=== PATIENT | male | born 1950 | race Caucasian/White ===

== ENCOUNTER 2016-10-04 22:31 | Emergency (ER) | payer MEDICARE, MEDICAID ==
[~2016-10-04] VITALS: Ht 172.7 cm; Wt 80.0 kg
[~2016-10-04 22:31] MED LIST: ATOR1TAB18 PO; COMMODE 3-IN-11 MIS; DIGO0.12 PO; DOCU100T9 PO; FURO20TA PO; ISOS30TA3 PO; LEVEMIR SQ; METO50TA11 PO; MORP15TA73 PO; SODI1TAB PO; SPIR25TA PO; WARF-58 PO; WHEEMIS3; [UNRECOGNIZED DRUG - OTHER] TOP
[2016-10-04 22:34] VITALS: BP 213/95; PULSE 68; RESP 16; TEMP 98.6; O2SAT 99
--- NOTE | 2016-10-04 22:57 | PD ---
Physical Exam Time Seen by Provider: 22:56 Narrative 66 y/o male w/ hx of L BKA presents for wound evaluation. Wound care performed by Dr. Gregorio last week, today he removed the bandage and says that the wound "split open" with increased pain. vss Seen at triage desk. Awaiting bed placement. Data Data Last Documented VS Vital Signs Date Time Temp Pulse Resp B/P Pulse Ox O2 Delivery O2 Flow Rate FiO2 10/04/16 22:34 98.6 68 16 213/95 99 MDM Medical Record Reviewed: Yes Supervised Visit with CLAUDIO: Eric Dowell October 04, 2016 22:57
--- NOTE | 2016-10-05 01:18 | PD ---
HPI . Wound problem Chief Complaint: Wound/Suture/Staple Re-Check Time Seen by Provider: 01:12 Travel History International Travel<30 days: No Contact w/Intl Traveler<30days: No Traveled to known affect area: No History of Present Illness HPI This patient is status post a left BKA. He is now being followed in the wound care clinic for a nonhealing operative wound. He states he changed his dressing tonight and that the wound "split open." Subsequently presented to us for further evaluation. He denies any fever. He does describe increased pain. He states that this pain is 10/10 and that there are no exacerbating or relieving factors. PFSH Past Medical History Hx Anticoagulant Therapy: Yes (WARFARIN) AAA: Yes (REPAIR ) Arthritis: No Asthma: No Atrial Fibrillation: Yes Autoimmune Disease: No Blood Disorders: No Anxiety: No Depression: No Heart Rhythm Problems: Yes (A-FIB, AFLUTTER) Cancer: No Cardiac Catheterization: Yes (x 3) Cardiomyopathy: Yes Cardiovascular Problems: Yes (AFIB, CHF) High Cholesterol: Yes Chemotherapy: No Chest Pain: No Congestive Heart Failure: Yes Cirrhosis: Yes (denies) COPD: No Cerebrovascular Accident: No Coronary Artery Disease: Yes Diabetes: Yes Patient Takes Glucophage: No Diminished Hearing: No Endocrine: Yes Gastrointestinal Disorders: No GERD: No Glaucoma: No Genitourinary: No Headaches: No Hepatitis: Yes (C, Hx of B) Hiatal Hernia: No Hypertension: Yes Immune Disorder: No Implanted Vascular Access Dvce: Yes Kidney Stones: No Musculoskeletal: Yes (neuropathy dm) Neurologic: No Psychiatric: No Reproductive: No Respiratory: No Immunizations Current: Yes Migraines: No Myocardial Infarction: No Radiation Therapy: No Renal Failure: No Seizures: No Sickle Cell Disease: No Sleep Apnea: No Thyroid Disease: No Ulcer: No Tetanus Vaccination: < 5 Years Influenza Vaccination: No PNEUMOCCOCAL Vaccine (Year): 2 Past Surgical History Abdominal Surgery: Yes (AAA REPAIR) AICD: Yes ([employer]) Appendectomy: No Arteriovenous Shunt: No Cardiac Surgery: Yes (CAROTID ENDARTERECTOMY) Cholecystectomy: No Ear Surgery: No Endocrine Surgery: No Eye Surgery: No Genitourinary Surgery: No Gynecologic Surgery: No Insulin Pump: No Joint Replacement: No Oral Surgery: No Pacemaker: Yes Thoracic Surgery: No Tonsillectomy: Yes Other Surgery: Yes (R. TOE AMPUTATION X5, L. 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; (foot) - 06/2009, 10/2013 Reported Meds & Prescriptions Reported Meds & Active Scripts Active Reported Atorvastatin (Atorvastatin Calcium) 80 Mg Tab 80 Mg PO HS Wheelchair (Device) 1 Mis Mis 1 Ea .ROUTE DIRECTED Warfarin 3 Mg Tab 3 Mg PO DAILY Spironolactone 25 Mg Tab 25 Mg PO DAILY Sodium Chloride 1 Gm Tab 1 Gm PO DAILY Morphine Sulfate CR (Morphine Sulfate) 15 Mg Tab 30 Mg PO Q8HR Morphine Sulfate CR (Morphine Sulfate) 15 Mg Tab 15 Mg PO Q4HR Isosorbide Mononitrate ER (Isosorbide Mononitrate) 30 Mg [place] 30 Mg PO DAILY Levemir Inj (Insulin Detemir) 1,000 unit/ 10 ML Vial 30 Units SQ Q12HR Do not mix with any other Insulin. Furosemide 20 Mg Tab 40 Mg PO BID Docusate Sodium 100 Mg Tab 100 Mg PO BID Digoxin 0.125 Mg Tab 0.125 Mg PO DAILY Commode 3-in-1 (Device) 1 Mis Mis 1 Ea .ROUTE DIRECTED Adhesive Paper Tape (Adhesive Tape) 1 Tap Tap Units TOP DIRECTED Metoprolol Succinate ER 24 HR (Metoprolol Succinate) 50 Mg Tab 50 Mg PO DAILY Review of Systems Except as stated in HPI: all other systems reviewed are Neg General / Constitutional: No: Fever, Chills Skin: Positive Lesions Physical Exam Narrative GENERAL: Awake and alert and in no acute distress. SKIN: The skin of his lower extremities is cyanotic. He has weeping from the right lower extremity. He has a left BKA. The wound does not appear infected. There is no redness or warmth. He does have a tiny wound dehiscence. It is draining some serous fluid. HEAD: Atraumatic. Normocephalic. EYES: Pupils equal and round. NECK: Trachea midline. CARDIOVASCULAR: Regular rate and rhythm. RESPIRATORY: No accessory muscle use. MUSCULOSKELETAL: No obvious deformities. No edema. NEUROLOGICAL: Awake and alert. No obvious cranial nerve deficits. Motor grossly within normal limits. Normal speech. PSYCHIATRIC: Appropriate mood and affect; insight and judgment normal. Data Data Last Documented VS Vital Signs Date Time Temp Pulse Resp B/P Pulse Ox O2 Delivery O2 Flow Rate FiO2 10/04/16 22:34 98.6 68 16 213/95 99 MDM Medical Decision Making Medical Screen Exam Complete: Yes Emergency Medical Condition: Yes Differential Diagnosis My differential diagnosis of a wound check includes but is not limited to normal healing, delayed healing, localized wound infection, cellulitis, sepsis Narrative Course This patient presents for evaluation of a surgical wound. He is status post a left BKA. He was concerned about the wound tonight. The wound is not concerning for infection tonight. There is no redness or warmth. There is no purulent drainage. This patient is stable for discharge with continued follow- up with wound care clinic. Diagnosis Primary Impression: Non-healing wound of amputation stump Disposition: DISCHARGE HOME Condition: Stable Sushila Garcia MD October 05, 2016 01:18
[2016-10-05] MEDS: oxyCODONE/ACETAMINOPHEN 5 MG/325 MG TAB PO ONE ×2 (01:30→01:32)
== END 2016-10-05 01:59 | disposition home or self-care (01) ==
LOC: NEPC 22:31
DX: T81.89XA Other complications of procedures, not elsewhere classified, initial encounter (principal); I10 Essential (primary) hypertension; I48.91 Unspecified atrial fibrillation; E11.40 Type 2 diabetes mellitus with diabetic neuropathy, unspecified; E78.00 Pure hypercholesterolemia, unspecified; I50.9 Heart failure, unspecified; I42.9 Cardiomyopathy, unspecified; Z89.512 Acquired absence of left leg below knee; F17.210 Nicotine dependence, cigarettes, uncomplicated; Z95.810 Presence of automatic (implantable) cardiac defibrillator
CPT/HCPCS: 99282

== ENCOUNTER 2017-03-31 21:33 | Observation (INO) | payer MEDICARE, MEDICAID ==
[2017-03-31 21:35] VITALS: BP 135/84; PULSE 81; RESP 16; TEMP 99; O2SAT 95
[2017-03-31] MEDS ORDERED: ASPIRIN 81 MG CHEW TAB PO ONE (22:45)
[2017-03-31] MEDS ORDERED: SODIUM CHLORIDE 0.9% FLUSH 10 ML FLUSH IVF PRN (22:45)
[2017-03-31 22:54] VITALS: BP_SYST 105; BP_SYST 94; BP_DIAS 64; BP_DIAS 67; PULSE 70; RESP 16; O2SAT 100
--- NOTE | 2017-03-31 23:04 | RADRPT ---
EXAM DATE/TIME: 03/31/2017 23:38 [facility] COMPARISON: CHEST SINGLE AP, December 25, 2015, 18:05. INDICATIONS : Chest pain today. MEDICAL HISTORY : Hypertension. Congestive heart failure. Aneurysm, abdominal. Afib. Diabetes. Cirrhosis. Coronary artery disease. Hep B & C. SURGICAL HISTORY : Pacemaker. Abdominal aortic aneurysm repair. Carotoid endarterectomy. Cardiac cath. Defibrilator ENCOUNTER: Initial ACUITY: 1 day PAIN SCORE: 5/10 LOCATION: Bilateral chest FINDINGS: No infiltrate, effusion or pneumothorax. Heart size stable, within normal limits. Cardiac pacer/defibrillator again noted. CONCLUSION: No evidence of acute cardiopulmonary disease. Porfirio Zeng MD on March 31, 2017 at 23:02 Board Certified Radiologist. This report was verified electronically.
[2017-03-31 23:08] LABS: AUTOMATED NEUTROPHIL # 13.8 TH/MM3 (1.8-7.7); BASOPHIL # 0.2 TH/MM3 (0-0.2); BASOPHIL % 1.3 % (0.0-2.0); EOSINOPHIL # 0.1 TH/MM3 (0-0.4); EOSINOPHIL % 0.6 % (0.0-4.0); HEMATOCRIT 56.7 % (39.0-51.0); HEMO FLAGS DIFF FINAL; LYMPH % 9.9 % (9.0-44.0); LYMPHOCYTE # 1.6 TH/MM3 (1.0-4.8); MEAN CELL VOLUME 88.3 FL (80.0-100.0); MEAN CORPUSCULAR HEMOGLOBIN 29.5 PG (27.0-34.0); MEAN CORPUSCULAR HGB CONC 33.4 % (32.0-36.0); MONO % 4.7 % (0.0-8.0); NEUT % 83.5 % (16.0-70.0); PLATELET COUNT 275 TH/MM3 (150-450); RED BLOOD COUNT 6.42 MIL/MM3 (4.50-5.90); RED CELL DISTRIBUTION WIDTH 16.1 % (11.6-17.2); WHITE BLOOD COUNT 16.5 TH/MM3 (4.0-11.0)
[2017-03-31 23:17] LABS: APTT (PATIENT) 40.8 SEC (24.3-30.1); INTERNATIONAL NORMALIZED RATIO 2.2 RATIO
[2017-03-31 23:22] LABS: ALT (GPT) 22 U/L (12-78); ANION GAP 12 MEQ/L (5-15); AST (GOT) 20 U/L (15-37); BICARBONATE 25.2 MEQ/L (21.0-32.0); BLOOD UREA NITROGEN 28 MG/DL (7-18); CHLORIDE 89 MEQ/L (98-107); GLOMERULAR FILTRATION RATE 31 ML/MIN (>89); MAGNESIUM 1.8 MG/DL (1.5-2.5); POTASSIUM 4.6 MEQ/L (3.5-5.1); SODIUM (NA) 126 MEQ/L (136-145)
[2017-03-31 23:26] LABS: ALKALINE PHOSPHATASE 115 U/L (45-117); TOTAL BILIRUBIN ADULT 0.9 MG/DL (0.2-1.0)
[2017-04-01] VITALS (8 sets, daily range): BP systolic 91–148; BP diastolic 61–92; PULSE 68–92; RESP 16–19; TEMP 97.6–98; O2SAT 96–100
[2017-04-01] MEDS ORDERED: SODIUM CHLORID 0.9% 500 ML INJ 500 ML IV ONE
[2017-04-01 01:44] LABS: BACTERIA, URINE RARE /hpf; BLOOD, URINE MOD (NEG); COMMENT (UR) CULT NOT INDICATED; CULTURE IF INDICATED CULT NOT INDICATED; GLUCOSE,URINE 70 mg/dL (NEG); HYALINE CAST, URINE 58 /lpf (RARE); KETONE, URINE NEG (NEG); MUCUS URINE FEW /lpf (OCC); NITRITE,URINE NEG (NEG); SQUAMOUS EPITHELIAL CELL URINE 4 /hpf (0-5); URINE COLOR YELLOW (YELLW/STRAW)
[2017-04-01] MEDS ORDERED: MAGNESIUM HYDROXIDE SUSP 30 ML CUP PO PRN (02:30)
[2017-04-01] MEDS ORDERED: LACTULOSE SYRUP 20 GM/30 ML CUP PO PRN (02:30)
[2017-04-01] MEDS ORDERED: ACETAMINOPHEN/HYDROcodone 325 MG/5 MG TAB PO PRN (02:30)
[2017-04-01] MEDS ORDERED: DEXTROSE 50% IN WATER 50 ML VIAL(D50) IV PUSH PRN (02:30)
[2017-04-01] MEDS ORDERED: BISACODYL 10 MG SUPP RECTAL PRN (02:30)
[2017-04-01] MEDS ORDERED: ONDANSETRON HCL 4 MG/2 ML VIAL IVP PRN (02:30)
[2017-04-01] MEDS ORDERED: SENNOSIDES 8.6 MG TAB PO PRN (02:30)
[2017-04-01] MEDS ORDERED: NITROGLYCERIN 2% OINT 1 GM PACKET TOPICAL PRN (02:30)
[2017-04-01] MEDS ORDERED: SODIUM CHLORIDE 0.9% FLUSH 10 ML FLUSH IV FLUSH PRN (02:30)
[2017-04-01] MEDS ORDERED: GLUCAGON 1 MG/ML VIAL OTHER PRN (02:30)
[2017-04-01] MEDS ORDERED: ACETAMINOPHEN 325 MG TAB PO PRN (02:30)
[2017-04-01] MEDS ORDERED: MORP15IN3 PO (02:46)
[2017-04-01] MEDS: MORPHINE SULFATE 4 MG/ML INJ IV PUSH PRN ×3 (02:50→16:23)
--- NOTE | 2017-04-01 03:20 | HHI.HP ---
[facility] Di Dutton D.O. Admission Diagnosis chest pain, dehydration Diagnoses: (1) Chest pain Diagnosis: Principal (2) CHF (congestive heart failure) Diagnosis: Principal (3) Dehydration Diagnosis: Principal (4) Leukocytosis Diagnosis: Principal (5) A-fib Diagnosis: Principal (6) Chronic pain Diagnosis: Principal (7) DM (diabetes mellitus) Diagnosis: Principal (8) Tobacco abuse Diagnosis: Principal Travel History International Travel<30 Days: No Contact w/Intl Traveler <30 Da: No Traveled to Known Affected Are: No History of Present Illness This is a 66-year-old male with a PMH of HTN, A. fib on Coumadin, CHF (Echo 09/17 w/ EF 30-35%), PVD, h/o Left BKA, AICD, Hepatitis C, Cirrhosis, DM, Chronic Back Pain and Tobacco Abuse who presented to the ER w/ complaints of chest pain starting few hours prior to arrival. States he's had SOB w/ exertion and generalized fatigue for the last 2-3 days. Denies fever, chills, cough or sick contacts. Today states he had acute onset of chest pain which he's never had before. Follows w/ Dr. Del Toro as outpatient, AICD checked approx 4mo ago, last Stress Test approx 2yrs ago reportedly normal, no recent Echo. On arrival, BP 135/84, HR 81, O2 sat 95% on RA, Temp 99.0. WBC 16.5. Hemoglobin 18.9. Creatinine 2.13, previously 1.61 on 01/06/16. Trop negative. EKG w/ no acute ischemia. BNP 191. INR 2.2. U/a negative for UTI. CXR w/ no acute findings. Review of Systems Except as stated in HPI: all other systems reviewed are Neg ROS: 14 point review of systems otherwise negative. Past Family Social History Past Medical History PMH: HTN, A. fib on Coumadin, CHF (Echo 09/17/13 w/ EF 30-35%), PVD, h/o Left BKA, AICD, Hepatitis C, Cirrhosis, DM, Chronic Back Pain and Tobacco Abuse Past Surgical History PAST SURGICAL HISTORY: Tonsillectomy, AAA Repair, CEA, AICD, Liver Biopsy, Left BKA, Right Toe Amputations Allergies: Coded Allergies: Sulfa (Sulfonamide Antibiotics) (Verified Allergy, Severe, Itching, Elevated Blood Pressure, SOB, 03/31/17) sulfamethoxazole (Verified Allergy, Severe, Elevated blood pressure, Generalized itching, 03/31/17) trimethoprim (Verified Allergy, Severe, Elevated blood pressure, Generalized itching, 03/31/17) MRI PRECAUTION (Verified Adverse Reaction, Severe, PACEMAKER KD NOT REVO, 03/31/17) *MDRO Multi-Drug Resistant Organism (Verified Adverse Reaction, Unknown, 03/31/17) 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 Physical Exam Vital Signs Vital Signs Date Time Temp Pulse Resp B/P (MAP) Pulse Ox O2 Delivery O2 Flow Rate FiO2 04/01/17 02:53 72 16 122/73 (89) 98 Room Air 04/01/17 00:58 75 16 114/73 (87) 98 Room Air 03/31/17 22:54 105/67 (80) 94/64 (74) 03/31/17 22:54 70 16 105/67 (80) 100 Room Air 03/31/17 22:54 100 Room Air 03/31/17 21:35 99.0 81 16 135/84 (101) 95 Room Air Physical Exam PE: GENERAL: Pleasant middle-aged white male in no acute distress. HEENT: PERRLA, EOMI. No scleral icterus or conjunctival pallor. No lid lag or facial droop. CARDIOVASCULAR: Regular rate and rhythm. No obvious murmurs to auscultation. No chest tenderness to palpation. RESPIRATORY: No obvious rhonchi or wheezing. Clear to auscultation. Breath sounds equal bilaterally. GASTROINTESTINAL: Abdomen soft, non-tender, nondistended. BS normal. MUSCULOSKELETAL: Extremities without clubbing, cyanosis, or edema. No obvious deformities. Left BKA, Right toe amputations. NEUROLOGICAL: Awake, alert and oriented x4. No focal neurologic deficits. Moving both upper and lower extremities spontaneously. Laboratory Laboratory Tests Test 03/31/17 22:52 04/01/17 01:20 White Blood Count 16.5 Red Blood Count 6.42 Hemoglobin 18.9 Hematocrit 56.7 Mean Corpuscular Volume 88.3 Mean Corpuscular Hemoglobin 29.5 Mean Corpuscular Hemoglobin Concent 33.4 Red Cell Distribution Width 16.1 Platelet Count 275 Mean Platelet Volume 8.3 Neutrophils (%) (Auto) 83.5 Lymphocytes (%) (Auto) 9.9 Monocytes (%) (Auto) 4.7 Eosinophils (%) (Auto) 0.6 Basophils (%) (Auto) 1.3 Neutrophils # (Auto) 13.8 Lymphocytes # (Auto) 1.6 Monocytes # (Auto) 0.8 Eosinophils # (Auto) 0.1 Basophils # (Auto) 0.2 CBC Comment DIFF FINAL Differential Comment Prothrombin Time 25.0 Prothromb Time International Ratio 2.2 Activated Partial Thromboplast Time 40.8 Blood Urea Nitrogen 28 Creatinine 2.13 Random Glucose 272 Total Protein 8.7 Albumin 3.0 Calcium Level 10.5 Magnesium Level 1.8 Alkaline Phosphatase 115 Aspartate Amino Transf (AST/SGOT) 20 Alanine Aminotransferase (ALT/SGPT) 22 Total Bilirubin 0.9 Sodium Level 126 Potassium Level 4.6 Chloride Level 89 Carbon Dioxide Level 25.2 Anion Gap 12 Estimat Glomerular Filtration Rate 31 Troponin I 0.02 B-Type Natriuretic Peptide 191 Urine Color YELLOW Urine Turbidity HAZY Urine pH 6.0 Urine Specific [place] 1.021 Urine Protein GREATER THAN 600 Urine Glucose (UA) 70 Urine Ketones NEG Urine Occult Blood MOD Urine Nitrite NEG Urine Bilirubin NEG Urine Urobilinogen LESS THAN 2.0 Urine Leukocyte Esterase NEG Urine RBC 8 Urine WBC 4 Urine Squamous Epithelial Cells 4 Urine Amorphous Sediment RARE Urine Bacteria RARE Urine Hyaline Casts 58 Urine Mucus FEW Microscopic Urinalysis Comment CULT NOT INDICATED Result Diagram: 03/31/17225103/31/172251 Caprini VTE Risk Assessment Caprini VTE Risk Assessment: Mod/High Risk (score >= 2) Caprini Risk Assessment Model Point Value = 1 Point Value = 2 Point Value = 3 Point Value = 5 Age 41-60 Minor surgery BMI > 25 kg/m2 Swollen legs Varicose veins or History of unexplained or recurrent spontaneous Oral contraceptives or hormone replacement Sepsis (< 1 month) Serious lung disease, including pneumonia (< 1 month) Abnormal pulmonary function Acute myocardial infarction Congestive heart failure (< 1 month) History of inflammatory bowel disease Medical patient at bed rest Age 61-74 Arthroscopic surgery Major open surgery (> 45 min) Laparoscopic surgery (> 45 min) Malignancy Confined to bed (> 72 hours) Immobilizing plaster cast Central venous access Age >= 75 History of VTE Family history of VTE Factor V Leiden Prothrombin [id number] Lupus anticoagulant Anticardiolipin antibodies Elevated serum homocysteine Heparin-induced thrombocytopenia Other congenital or acquired thrombophilia Stroke (< 1 month) Elective arthroplasty Hip, pelvis, or leg fracture Acute spinal cord injury (< 1 month) Prophylaxis Regimen Total Risk Factor Score Risk Level Prophylaxis Regimen 0-1 Low Early ambulation 2 Moderate Order ONE of the following: *Sequential Compression Device (SCD) *Heparin 5000 units SQ BID 3-4 Higher Order ONE of the following medications: *Heparin 5000 units SQ TID *Enoxaparin/Lovenox 40 mg SQ daily (WT < 150 kg, CrCl > 30 mL/min) *Enoxaparin/Lovenox 30 mg SQ daily (WT < 150 kg, CrCl > 10-29 mL/min) *Enoxaparin/Lovenox 30 mg SQ BID (WT < 150 kg, CrCl > 30 mL/min) AND/OR *Sequential Compression Device (SCD) 5 or more Highest Order ONE of the following medications: *Heparin 5000 units SQ TID (Preferred with Epidurals) *Enoxaparin/Lovenox 40 mg SQ daily (WT < 150 kg, CrCl > 30 mL/min) *Enoxaparin/Lovenox 30 mg SQ daily (WT < 150 kg, CrCl > 10-29 mL/min) *Enoxaparin/Lovenox 30 mg SQ BID (WT < 150 kg, CrCl > 30 mL/min) AND *Sequential Compression Device (SCD) Assessment and Plan Problem List: (1) Chest pain ICD Code: R07.9 - Chest pain, unspecified (2) CHF (congestive heart failure) ICD Code: I50.9 - Heart failure, unspecified (3) Dehydration ICD Code: E86.0 - Dehydration (4) Leukocytosis ICD Code: D72.829 - Elevated white blood cell count, unspecified (5) A-fib ICD Code: I48.91 - Unspecified atrial fibrillation (6) Chronic pain ICD Code: G89.29 - Other chronic pain (7) DM (diabetes mellitus) ICD Code: E11.9 - Type 2 diabetes mellitus without complications (8) Tobacco abuse ICD Code: Z72.0 - Tobacco abuse Status: Chronic Assessment and Plan A/P: 1. Chest Pain: SOB x2-3 days, acute onset of chest pain starting tonight, h/o CAD/CHF/PVD. Initial trop negative, EKG w/ no acute ischemia. Admit for Observation, telemetry, check serial cardiac enzymes, resume home Statin, Metoprolol, Coumadin. Follows w/ Dr. Del Toro, will consult for further evaluation. 2. CHF: Chronic. Systolic. Echo 09/07/13 w/ EF 30-35%, s/p AICD, last interrogation approx 4mo ago. No evidence of fluid overload. BNP mildly elevated, CXR w/ no acute findings, images reviewed by me. +dehydration. Hold diuretics for the moment. Monitor I/O. 3. Dehydration: Likely secondary to over-diuresis and decreased PO intake. + hemoconcentration, +renal insufficiency, s/p 500ml NS in ER, monitor I/O, hold diuretics as above, repeat labs in am. 4. Leukocytosis: WBC 16, CXR w/ no acute findings, images reviewed by me. U/ a negative. Likely secondary to dehydration. IVF, repeat labs in am. 5. A-fib: Chronic. Resume home Digoxin/Metoprolol. INR therapeutic, resume home Coumadin. 6. Chronic Pain: Resume home Morphine PO, no c/o pain at this time. 7. DM: Sliding scale w/ Accu-Cheks, resume home Insulin 8. Tobacco Abuse: Ativan prn, no NicoDerm to avoid vasoconstriction. 9. DVT Prophylaxis: Coumadin 10. Social work for d/c planning as needed. 11. Case discussed w/ ER physician at length. Shannon Ortega MD Apr 01, 2017 03:20
--- NOTE | 2017-04-01 05:56 | PD ---
HPI Chief Complaint: Chest Pain Time Seen by Provider: 22:17 Travel History International Travel<30 days: No Contact w/Intl Traveler<30days: No Traveled to known affect area: No History of Present Illness HPI This is a 66-year-old male who has a history of peripheral arterial disease, diabetes, and congestive heart failure who presents to the emergency department with lightheadedness and dizziness that's been going on for 1 week, intermittent , worse with standing, improved with rest. Today he started to have left-sided chest discomfort that feels like a pressure and squeezing in the left side of his chest, moderate severity, lasting for about an hour prior to arrival. He did have some associated shortness of breath and diaphoresis. He says he has never had pain like that before. He follows with Dr. Del Toro. His most recent stress test was several years ago. PFSH Past Medical History Hx Anticoagulant Therapy: Yes (WARFARIN) AAA: Yes (REPAIR ) Arthritis: No Asthma: No Atrial Fibrillation: Yes Autoimmune Disease: No Blood Disorders: No Anxiety: No Depression: No Heart Rhythm Problems: Yes (A-FIB, AFLUTTER) Cancer: No Cardiac Catheterization: Yes (x 3) Cardiomyopathy: Yes Cardiovascular Problems: Yes (AFIB, CHF, AAA) High Cholesterol: Yes Chemotherapy: No Chest Pain: Yes Congestive Heart Failure: Yes Cirrhosis: Yes (denies) COPD: No Cerebrovascular Accident: No Coronary Artery Disease: Yes Diabetes: Yes (DM TYPE 2) Patient Takes Glucophage: No Diminished Hearing: No Endocrine: Yes Gastrointestinal Disorders: No GERD: No Glaucoma: No Genitourinary: No Headaches: No Hepatitis: Yes (C, Hx of B) Hiatal Hernia: No Hypertension: Yes Immune Disorder: No Implanted Vascular Access Dvce: Yes Kidney Stones: No Musculoskeletal: Yes (DM NEUROPATHY) Neurologic: No Psychiatric: No Reproductive: No Respiratory: No Immunizations Current: Yes Migraines: No Myocardial Infarction: No Radiation Therapy: No Renal Failure: No Seizures: No Sickle Cell Disease: No Sleep Apnea: No Thyroid Disease: No Ulcer: No Influenza Vaccination: No PNEUMOCCOCAL Vaccine (Year): 2 Past Surgical History Abdominal Surgery: Yes (AAA REPAIR) AICD: Yes ([employer]) Appendectomy: No Arteriovenous Shunt: No Cardiac Surgery: Yes (CAROTID ENDARTERECTOMY) Cholecystectomy: No Ear Surgery: No Endocrine Surgery: No Eye Surgery: No Genitourinary Surgery: No Gynecologic Surgery: No Insulin Pump: No Joint Replacement: No Oral Surgery: No Pacemaker: Yes Thoracic Surgery: No Tonsillectomy: Yes Other Surgery: Yes (R. TOE AMPUTATION X5, L. GREAT TOE AMPUTATION ) Social History Alcohol Use: No Tobacco Use: Yes (1/2 PPD) Substance Use: No Allergies-Medications (Allergen,Severity, Reaction): Coded Allergies: Sulfa (Sulfonamide Antibiotics) (Verified Allergy, Severe, Itching, Elevated Blood Pressure, SOB, 03/31/17) sulfamethoxazole (Verified Allergy, Severe, Elevated blood pressure, Generalized itching, 03/31/17) trimethoprim (Verified Allergy, Severe, Elevated blood pressure, Generalized itching, 03/31/17) MRI PRECAUTION (Verified Adverse Reaction, Severe, PACEMAKER KD NOT REVO, 03/31/17) *MDRO Multi-Drug Resistant Organism (Verified Adverse Reaction, Unknown, 03/31/17) 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 Furosemide 20 Mg Tab 40 Mg PO BID Digoxin 0.125 Mg Tab 0.125 Mg PO DAILY Metoprolol Succinate ER 24 HR (Metoprolol Succinate) 50 Mg Tab 50 Mg PO DAILY Review of Systems Except as stated in HPI: all other systems reviewed are Neg Physical Exam Narrative GENERAL:Well appearing, no acute distress SKIN: Focused skin assessment warm and dry. HEAD: Atraumatic. Normocephalic. EYES: Pupils equal and round. No injection or drainage. ENT: Moist mucous membranes NECK: Trachea midline. CARDIOVASCULAR: Regular rate and rhythm. No murmur appreciated. RESPIRATORY: Clear to auscultation. Breath sounds equal bilaterally. GASTROINTESTINAL: Abdomen soft, non-tender, nondistended. MUSCULOSKELETAL: Left BKA. NEUROLOGICAL: Awake and alert. No obvious cranial nerve deficits. Moving all extremities. PSYCHIATRIC: Appropriate mood and affect; insight and judgment normal. Data Data Last Documented VS Vital Signs Date Time Temp Pulse Resp B/P (MAP) Pulse Ox O2 Delivery O2 Flow Rate FiO2 04/01/17 00:58 75 16 114/73 (87) 98 Room Air 03/31/17 21:35 99.0 Orders Orders Electrocardiogram (03/31/17 22:37) B-Type Natriuretic Peptide (03/31/17 22:37) Complete Blood Count With Diff (03/31/17 22:37) Comprehensive Metabolic Panel (03/31/17 22:37) Magnesium (Mg) (03/31/17 22:37) Prothrombin Time / Inr (Pt) (03/31/17 22:37) Act Partial Throm Time (Ptt) (03/31/17 22:37) Troponin I (03/31/17 22:37) Chest, Single Ap (03/31/17 22:37) Ecg Monitoring (03/31/17 22:37) Bilateral Bp Monitoring (03/31/17 22:37) Iv Access Insert/Monitor (03/31/17 22:37) Oximetry (03/31/17 22:37) Oxygen Administration (03/31/17 22:37) Aspirin Chew (Aspirin Chew) (03/31/17 22:45) Sodium Chloride 0.9% Flush (Ns Flush) (03/31/17 22:45) Sodium Chlorid 0.9% 500 Ml Inj (Ns 500 M (04/01/17 00:00) Urinalysis - C+S If Indicated (03/31/17 23:56) Admit Order (Ed Use Only) (04/01/17 02:24) Labs Laboratory Tests Test 03/31/17 22:52 04/01/17 01:20 White Blood Count 16.5 TH/MM3 Red Blood Count 6.42 MIL/MM3 Hemoglobin 18.9 GM/DL Hematocrit 56.7 % Mean Corpuscular Volume 88.3 FL Mean Corpuscular Hemoglobin 29.5 PG Mean Corpuscular Hemoglobin Concent 33.4 % Red Cell Distribution Width 16.1 % Platelet Count 275 TH/MM3 Mean Platelet Volume 8.3 FL Neutrophils (%) (Auto) 83.5 % Lymphocytes (%) (Auto) 9.9 % Monocytes (%) (Auto) 4.7 % Eosinophils (%) (Auto) 0.6 % Basophils (%) (Auto) 1.3 % Neutrophils # (Auto) 13.8 TH/MM3 Lymphocytes # (Auto) 1.6 TH/MM3 Monocytes # (Auto) 0.8 TH/MM3 Eosinophils # (Auto) 0.1 TH/MM3 Basophils # (Auto) 0.2 TH/MM3 CBC Comment DIFF FINAL Differential Comment Prothrombin Time 25.0 SEC Prothromb Time International Ratio 2.2 RATIO Activated Partial Thromboplast Time 40.8 SEC Blood Urea Nitrogen 28 MG/DL Creatinine 2.13 MG/DL Random Glucose 272 MG/DL Total Protein 8.7 GM/DL Albumin 3.0 GM/DL Calcium Level 10.5 MG/DL Magnesium Level 1.8 MG/DL Alkaline Phosphatase 115 U/L Aspartate Amino Transf (AST/SGOT) 20 U/L Alanine Aminotransferase (ALT/SGPT) 22 U/L Total Bilirubin 0.9 MG/DL Sodium Level 126 MEQ/L Potassium Level 4.6 MEQ/L Chloride Level 89 MEQ/L Carbon Dioxide Level 25.2 MEQ/L Anion Gap 12 MEQ/L Estimat Glomerular Filtration Rate 31 ML/MIN Troponin I 0.02 NG/ML B-Type Natriuretic Peptide 191 PG/ML Urine Color YELLOW Urine Turbidity HAZY Urine pH 6.0 Urine Specific [place] 1.021 Urine Protein GREATER THAN 600 mg/dL Urine Glucose (UA) 70 mg/dL Urine Ketones NEG mg/dL Urine Occult Blood MOD Urine Nitrite NEG Urine Bilirubin NEG Urine Urobilinogen LESS THAN 2.0 MG/DL Urine Leukocyte Esterase NEG Urine RBC 8 /hpf Urine WBC 4 /hpf Urine Squamous Epithelial Cells 4 /hpf Urine Amorphous Sediment RARE Urine Bacteria RARE /hpf Urine Hyaline Casts 58 /lpf Urine Mucus FEW /lpf Microscopic Urinalysis Comment CULT NOT INDICATED MDM Medical Decision Making Medical Screen Exam Complete: Yes Emergency Medical Condition: Yes Interpretation(s) EKG: Atrial fibrillation, ST depressions and T-wave inversions in the lateral leads similar to EKG from 05/14/15 Leukocytosis Hemoconcentration Renal insufficiency BNP is 191 INR is 2.2 Urinalysis negative for infection Last 24 hours Impressions Chest X-Ray 03/31/17 0599 Signed Impressions: Service Date/Time: March 23:38 - CONCLUSION: No evidence of acute cardiopulmonary disease. Porfirio Zeng MD Differential Diagnosis Acute coronary syndrome, pulmonary embolism, costochondritis, congestive heart failure, pneumonia Narrative Course This is a 66-year-old male who presents to the emergency department with chest discomfort that was preceded by several days of malaise and fatigue. He was placed on a monitor and an IV was established. BNP is indeterminate. He has evidence of hemoconcentration, a leukocytosis as well as renal insufficiency. I suspect his leukocytosis is due to volume depletion given his other labs. He is not febrile and has no other SIRS criteria. I don't think he requires antibiotics at this time. Chest x-rays reassuring. Patient has ischemic changes on his EKG which appear old. Given the new presence of chest discomfort and his risk factors I think it's reasonable to observe the patient for serial cardiac enzymes and I think he would benefit from him slight volume repletion, as dehydration may be the cause of some of his symptoms. Physician Communication Physician Communication Discussed with Dr. Ro Diagnosis Primary Impression: Chest pain Qualified Codes: R07.9 - Chest pain, unspecified Additional Impression: Volume depletion Admitting Information Admitting Physician Requests: Observation Magda Frazier MD Apr 01, 2017 05:56
[2017-04-01] MEDS: MORPHINE SULFATE 15 MG TAB PO SCH ×6 (06:13→22:25)
[2017-04-01] MEDS ORDERED: HEPARIN SODIUM - SQ 10,000 UNITS/ML VIAL SQ SCH (09:00)
[2017-04-01] MEDS: INSULIN ASPART SUPPLEMENTAL SCALE SQ SCH ×4 (09:28→21:00)
[2017-04-01] MEDS: SODIUM CHLORIDE 0.9% FLUSH 10 ML FLUSH IV FLUSH SCH ×2 (09:28→21:55)
[2017-04-01] MEDS: METOPROLOL SUCCINATE 50 MG EXTENDED RELEASE TAB PO SCH (09:29)
[2017-04-01] MEDS: DIGOXIN 0.125 MG TAB PO SCH (09:29)
[2017-04-01] MEDS: DOCUSATE SODIUM 50 MG/SENNA 8.6 MG TAB PO SCH ×2 (09:32→21:53)
[2017-04-01] MEDS: ISOSORBIDE MONONITRATE 30 MG TAB PO SCH (09:32)
[2017-04-01] MEDS: INSULIN DETEMIR 100 UNITS/ML VIAL SQ SCH ×2 (09:33→21:00)
--- NOTE | 2017-04-01 10:23 | HHI.PR ---
Subjective Remarks Follow-up for chest pain. The patient states that for the past 3 days he's been having shortness of breath, dizziness, and fatigue. Since yesterday about 5 PM he developed chest pain. The chest pain has slowly been improving since that time. He does state that due to issues with pharmacy and his prescription for Imdur, he was without Imdur for 4 days. He denies any recent illness, cough , fever, chills, vomiting, diarrhea. He does not like chemical stress tests. Awaiting cardiology evaluation. Patient reports PCI in the past but no stents. Objective Vitals Vital Signs Date Time Temp Pulse Resp B/P (MAP) Pulse Ox O2 Delivery O2 Flow Rate FiO2 04/01/17 08:01 79 04/01/17 08:01 97.8 92 16 148/92 (110) 97 04/01/17 04:53 73 04/01/17 04:00 14 04/01/17 03:56 97.9 85 19 100/70 (80) 96 04/01/17 02:53 72 16 122/73 (89) 98 Room Air 04/01/17 00:58 75 16 114/73 (87) 98 Room Air 03/31/17 22:54 105/67 (80) 94/64 (74) 03/31/17 22:54 70 16 105/67 (80) 100 Room Air 03/31/17 22:54 100 Room Air 03/31/17 21:35 99.0 81 16 135/84 (101) 95 Room Air I/O 03/31/17 03/31/17 03/31/17 04/01/17 04/01/17 04/01/17 07:00 15:00 23:00 07:00 15:00 23:00 Intake Total 500 ml 480 ml Balance 500 ml 480 ml Intake Oral 480 ml IV Total 500 ml # Voids 1 # Bowel Movements 1 Result Diagram: 03/31/17225103/31/172251 Imaging Last Impressions Chest X-Ray 03/31/172236 Signed Impressions: Service Date/Time: March 23:38 - CONCLUSION: No evidence of acute cardiopulmonary disease. Porfirio Zeng MD Objective Remarks GENERAL: Well-developed well-nourished. In no acute distress. SKIN: Warm and dry. No lesions noted. HEENT: Normocephalic. Pupils equal and round. Mucous membranes pink and moist. CARDIOVASCULAR: Irregular rate and rhythm. No murmur appreciated. RESPIRATORY: No accessory muscle use. Clear to auscultation. Breath sounds equal bilaterally. GASTROINTESTINAL: Abdomen soft, non-tender, nondistended. Bowel sounds x4. MUSCULOSKELETAL: Left BKA. No clubbing or cyanosis. No edema. NEUROLOGICAL: Awake and alert. No focal neurological deficits. Moves upper and lower extremities spontaneously. Normal speech. PSYCHIATRIC: Appropriate mood and affect; insight and judgment normal. A/P Problem List: (1) Chest pain ICD Code: R07.9 - Chest pain, unspecified Status: Acute (2) CHF (congestive heart failure) ICD Code: I50.9 - Heart failure, unspecified Status: Chronic (3) Dehydration ICD Code: E86.0 - Dehydration Status: Acute (4) Leukocytosis ICD Code: D72.829 - Elevated white blood cell count, unspecified Status: Chronic (5) A-fib ICD Code: I48.91 - Unspecified atrial fibrillation Status: Chronic (6) Chronic pain ICD Code: G89.29 - Other chronic pain Status: Chronic (7) DM (diabetes mellitus) ICD Code: E11.9 - Type 2 diabetes mellitus without complications Status: Chronic (8) Tobacco abuse ICD Code: Z72.0 - Tobacco abuse Status: Chronic Assessment and Plan 66-year-old male with a PMH of HTN, A. fib on Coumadin, CHF (Echo 09/17/13 w/ EF 30-35%), PVD, h/o Left BKA, AICD, Hepatitis C, Cirrhosis, DM, Chronic Back Pain and Tobacco Abuse who presented w/ complaints of chest pain Chest Pain: SOB x2-3 days, acute onset of chest pain starting prior to admission. Initial trop negative, trending. EKG w/ what appears to be new diffuse T-wave inversions. Continue home Statin, Metoprolol, Coumadin. Patient has been without Imdur 4 days, resumed; possibly contributing to symptoms. Follows w/ cardiology, Dr. Del Toro, consulted for further evaluation. CHF: Chronic, Systolic. Echo 09/07/13 w/ EF 30-35%, s/p AICD, last interrogation approx 4mo ago. No evidence of fluid overload, BNP only 191. CXR w/ no acute findings. Continue metoprolol. Acute kidney injury: Likely secondary to over-diuresis and decreased PO intake. Creatinine 2.13, previously 1.61 on 01/06/16. Hold home Lasix and monitor. Repeat labs pending. Leukocytosis: WBC 16, somewhat chronically elevated based on review of previous labs. No signs of acute infection. Afebrile. CXR w/ no acute findings. U/a negative. Monitor. A-fib: Chronic. Continue home Digoxin/Metoprolol. INR therapeutic, continue home Coumadin. Monitor on telemetry. Chronic Pain: Continue home Morphine PO. DM: Not optimally controlled. Continue home basal insulin. Check hemoglobin A1c. Monitor Accu-Cheks and cover with SSI as needed. Tobacco Abuse: Cessation counseling. DVT Prophylaxis: Coumadin Discharge Planning Follow-up cardiology recommendations. Addendum 1745: Discuss with cardiology, Dr. Rodriguez, chest pain is atypical, no further intervention at this time, recommends monitoring overnight, follow-up troponin, and likely discharge in the morning for outpatient follow-up with Dr. Del Toro for stress test. Problem Qualifiers (1) Chest pain: Qualified Codes: R07.9 - Chest pain, unspecified (2) CHF (congestive heart failure): Qualified Codes: I50.22 - Chronic systolic (congestive) heart failure Ayaz Johnson Apr 01, 2017 10:23
--- NOTE | 2017-04-01 12:36 | ECHRPT ---
Indication: HEART FAILURE CONCLUSIONS The left ventricle is not well visualized. There was limited left ventricular wall motion assessment due to poor endocardial visualization. LVEF hard to assess. Suspect at least mildly reduced LVEF. Consider MUGA if EF needed. A pacemaker wire is noted. The left atrial size is probably normal but not measured The right atrium is not well visualized. The interatrial septum not well visualized. The aortic root and proximal ascending aorta are not well visualized. No mitral valve regurgitation. Opens normally without reurg.The tricuspid valve is not well visualized. The pulmonary valve is not well visualized. BP: 100 / 70 HR: Rhythm: MEASUREMENTS (Male / Female) Normal Values Technical Quality:Poor 2D ECHO LVOT Diameter 2.0 cm Aortic Root Diameter 2.4 cm DOPPLER AV Peak Velocity 98.6 cm/s AV Peak Gradient 3.9 mmHg AV Mean Gradient 2.2 mmHg AV Velocity Time Integral 14.1 cm LVOT Peak Velocity 63.9 cm/s LVOT Peak Gradient 1.6 mmHg LVOT Velocity Time Integral 9.7 cm AV Area Cont Eq vti 2.2 cm AV Area Cont Eq pk 2.0 cm Mitral E Point Velocity 67.8 cm/s Mitral A Point Velocity 39.7 cm/s Mitral E to A Ratio 1.7 PV Peak Velocity 72.9 cm/s PV Peak Gradient 2.1 mmHg FINDINGS LEFT VENTRICLE The left ventricle is not well visualized. There was limited left ventricular wall motion assessment due to poor endocardial visualization. LVEF hard to assess. Suspect at least mildly reduced LVEF. Consider MUGA if EF needed. RIGHT VENTRICLE Normal right ventricular size and systolic function. A pacemaker wire is noted. LEFT ATRIUM The left atrial size is probably normal but not measured RIGHT ATRIUM The right atrium is not well visualized. ATRIAL SEPTUM The interatrial septum not well visualized. AORTA The aortic root and proximal ascending aorta are not well visualized. MITRAL VALVE Structurally normal mitral valve. No mitral valve regurgitation. AORTIC VALVE Opens normally without reurg. TRICUSPID VALVE The tricuspid valve is not well visualized. PULMONARY VALVE The pulmonary valve is not well visualized. PERICARDIUM No pericardial effusion. Rob Resendiz MD (Electronically Signed) Final Date:01 April 2017 12:35
[2017-04-01 13:00] LABS: AUTOMATED NEUTROPHIL # 10.8 TH/MM3 (1.8-7.7); BASOPHIL # 0.2 TH/MM3 (0-0.2); EOSINOPHIL # 0.2 TH/MM3 (0-0.4); EOSINOPHIL % 1.6 % (0.0-4.0); HEMATOCRIT 48.7 % (39.0-51.0); LYMPH % 14.2 % (9.0-44.0); MEAN CELL VOLUME 86.6 FL (80.0-100.0); MEAN CORPUSCULAR HEMOGLOBIN 31.2 PG (27.0-34.0); MONO % 7.8 % (0.0-8.0); NEUT % 75.4 % (16.0-70.0); PLATELET COUNT 225 TH/MM3 (150-450); RED BLOOD COUNT 5.62 MIL/MM3 (4.50-5.90); RED CELL DISTRIBUTION WIDTH 16.2 % (11.6-17.2); WHITE BLOOD COUNT 14.4 TH/MM3 (4.0-11.0)
[2017-04-01 13:02] LABS: HEMO FLAGS AUTO DIFF; MEAN CORPUSCULAR HGB CONC 36.1 % (32.0-36.0)
[2017-04-01 13:36] LABS: ALKALINE PHOSPHATASE 104 U/L (45-117); ALT (GPT) 20 U/L (12-78); ANION GAP 9 MEQ/L (5-15); AST (GOT) 20 U/L (15-37); BICARBONATE 28.9 MEQ/L (21.0-32.0); BLOOD UREA NITROGEN 35 MG/DL (7-18); CHLORIDE 92 MEQ/L (98-107); GLOMERULAR FILTRATION RATE 35 ML/MIN (>89); POTASSIUM 4.4 MEQ/L (3.5-5.1); SODIUM (NA) 130 MEQ/L (136-145); TOTAL BILIRUBIN ADULT 0.6 MG/DL (0.2-1.0)
[2017-04-01 13:41] LABS: SCAN/DIFF AUTO DIFF CONFIRMED
[2017-04-01 15:32] LABS: HEMOGLOBIN A1a 1.1 %; HEMOGLOBIN A1b 1.2 %; HEMOGLOBIN F 1.1 %; HEMOGLOBIN LA1C 3.6 %; HEMOGLOBIN P3 4.7 %
[2017-04-01] MEDS ORDERED: WARFARIN SOD 3 MG TAB PO SCH ×2 (16:00)
--- NOTE | 2017-04-01 19:31 | EKG ---
Date Performed: 03/31/2017 Time Performed: 22:35:34 PTAGE: 66 years EKG: ATRIAL FIBRILLATION ANTERIOR MYOCARDIAL INFARCTION MODERATE T-WAVE ABNORMALITY, CONSIDER LA TERAL ISCHEMIA MODERATE T-WAVE ABNORMALITY, CONSIDER INFERIOR ISCHEMIA ABNORMAL ECG PREVIOUS TRACING : 03/31/2017 22.22 Compared to the previous tracing previously Vpaced so unabl e to compare QRS complexes DOCTOR: Júnior Marcial Interpretating Date/Time 04/01/2017 19:29:29
[2017-04-01] MEDS ORDERED: ATORVASTATIN 80 MG TAB PO SCH (21:00)
--- NOTE | 2017-04-01 21:07 | MB ---
cc: RAEANN FREGOSO DATE OF CONSULTATION: 04/01/2017. HISTORY OF PRESENT ILLNESS: Mr. Resendiz is a 66-year-old white male who is a patient of Dr. Del Toro with history of atrial fibrillation, congestive heart failure and cardiomyopathy. with ran out of his isosorbide. He developed anterior chest discomfort which is increased with motion. He also has had increased dyspnea on exertion and has had fatigue. He has no previous history of chest pains. His last ICD check was four months ago with Dr. Del Toro. His last stress test was about two years ago also with Dr. Del Toro. PAST MEDICAL HISTORY: His past medical history is positive for: 1. Atrial fibrillation. 2. Hypertension. 3. Congestive heart failure. Echocardiogram in 2013 showed ejection fraction of 30% to 35%. 4. disease. 5. Right below-knee amputation. 6. ICD pulse generator . 7. Diabetes mellitus. 8. Chronic back pain. 9. Femoral aortic aneurysm. 10. . 11. endarterectomy. 12. Right toe amputations. MEDICATIONS: His medications include: 1. Warfarin. 2. Digoxin. 3. Atorvastatin. 4. Isosorbide mononitrate. 5. Metoprolol. 6. Morphine. 7. Furosemide. 8. Insulin. ALLERGIES: 1. SULFA. 2. TRIMETHOPRIM. SOCIAL HISTORY: The patient is a smoker. Does not drink alcohol. FAMILY HISTORY: Family history is positive for coronary artery disease and diabetes mellitus. REVIEW OF SYSTEMS: The review of systems is otherwise negative. PHYSICAL EXAMINATION: VITAL SIGNS: Blood pressure 91/61, pulse 78 and irregular. HEAD, EYES, EARS, NOSE, THROAT: Negative. NECK: 2+ carotid upstrokes, no bruits. LUNGS: Clear. HEART: Irregularly irregular with a 1/6 systolic murmur. ABDOMEN: Abdomen soft. EXTREMITIES: Mild edema. Status post left below-knee amputation. NEUROLOGIC: Grossly nonfocal. EKGS: EKG was reviewed and showed atrial fibrillation with controlled ventricular response, paced beat, normal axis, nonspecific, anteroseptal T waves, interventricular conduction delay, nonspecific S-T-T changes. LABS: Hemoglobin 17.5. Potassium 4.4, creatinine 1.9. Troponin negative x3. BNP 191. DIAGNOSIS: 1. Atypical chest pain. 2. Chronic systolic congestive heart failure. 3. Cardiomyopathy with moderate left ventricular systolic dysfunction. 4. Chronic atrial fibrillation. 5. Diabetes mellitus. 6. Smoking. 7. Cardiovascular disease. 8. History of ICD placement. 9. Status post left below-knee amputation. 10. Hypertension. DISPOSITION: Mr. Resendiz myocardial infarction by enzymes. I recommend to start all cardiac medications. I also recommend to continue aggressive modification of his cardiac risk factors. I recommend to continue anticoagulation for his atrial fibrillation. He can be discharged home and will follow up with Dr. 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 He was not interested in nuclear marker perfusion study in the hospital. I recommend follow up nuclear marker perfusion study in Dr. Del Toro's office as an outpatient. MD EULA Holloway/SAL /8:28 PM /8:52 PM
[2017-04-02 00:56] VITALS: BP 182/86; PULSE 61; RESP 18; TEMP 98.7; O2SAT 98
[2017-04-02] MEDS ORDERED: cloNIDine HCL 0.1 MG TAB PO ONE (01:30)
[2017-04-02 03:59] VITALS: BP 94/59; PULSE 60; RESP 18; TEMP 98.1; O2SAT 96
[2017-04-02 04:00] VITALS: BP 99/59
[2017-04-02 07:48] VITALS: PULSE 60
[2017-04-02] MEDS ORDERED: FURO20TA PO (07:53)
[2017-04-02] MEDS ORDERED: ISOS30TA3 PO (07:53)
--- NOTE | 2017-04-02 07:59 | HHI.PR ---
Subjective Remarks Follow-up for chest pain. The patient is doing well today. He has no acute complaints. Agreeable with the plan for outpatient follow-up with his atv mechanic. Needs refill for Imdur. Objective Vitals Vital Signs Date Time Temp Pulse Resp B/P (MAP) Pulse Ox O2 Delivery O2 Flow Rate FiO2 04/02/17 04:00 99/59 (72) 04/02/17 03:59 98.1 60 18 94/59 (71) 96 04/02/17 00:56 98.7 61 18 182/86 (118) 98 04/01/17 22:00 68 17 134/76 (95) 100 04/01/17 15:42 97.6 78 18 91/61 (71) 97 04/01/17 12:36 98.0 70 16 143/79 (100) 98 04/01/17 08:01 79 04/01/17 08:01 97.8 92 16 148/92 (110) 97 I/O 04/01/17 04/01/17 04/01/17 04/02/17 04/02/17 04/02/17 07:00 15:00 23:00 07:00 15:00 23:00 Intake Total 500 ml 480 ml Balance 500 ml 480 ml Intake Oral 480 ml IV Total 500 ml # Voids 3 1 # Bowel Movements 1 Result Diagram: 04/01/17 1225 04/01/17 1225 Imaging Last Impressions Chest X-Ray 03/31/172236 Signed Impressions: Service Date/Time: March 23:38 - CONCLUSION: No evidence of acute cardiopulmonary disease. Porfirio Zeng MD Objective Remarks GENERAL: Well-developed well-nourished. In no acute distress. SKIN: Warm and dry. No lesions noted. HEENT: Normocephalic. Pupils equal and round. Mucous membranes pink and moist. CARDIOVASCULAR: Irregular rate and rhythm. No murmur appreciated. RESPIRATORY: No accessory muscle use. Clear to auscultation. Breath sounds equal bilaterally. GASTROINTESTINAL: Abdomen soft, non-tender, nondistended. Bowel sounds x4. MUSCULOSKELETAL: Left BKA. No clubbing or cyanosis. No edema. NEUROLOGICAL: Awake and alert. No focal neurological deficits. Moves upper and lower extremities spontaneously. Normal speech. PSYCHIATRIC: Appropriate mood and affect; insight and judgment normal. A/P Problem List: (1) Chest pain ICD Code: R07.9 - Chest pain, unspecified Status: Acute (2) CHF (congestive heart failure) ICD Code: I50.9 - Heart failure, unspecified Status: Chronic (3) Dehydration ICD Code: E86.0 - Dehydration Status: Acute (4) Leukocytosis ICD Code: D72.829 - Elevated white blood cell count, unspecified Status: Chronic (5) A-fib ICD Code: I48.91 - Unspecified atrial fibrillation Status: Chronic (6) Chronic pain ICD Code: G89.29 - Other chronic pain Status: Chronic (7) DM (diabetes mellitus) ICD Code: E11.9 - Type 2 diabetes mellitus without complications Status: Chronic (8) Tobacco abuse ICD Code: Z72.0 - Tobacco abuse Status: Chronic Assessment and Plan 66-year-old male with a PMH of HTN, A. fib on Coumadin, CHF (Echo 09/17/13 w/ EF 30-35%), PVD, h/o Left BKA, AICD, Hepatitis C, Cirrhosis, DM, Chronic Back Pain and Tobacco Abuse who presented w/ complaints of chest pain Chest Pain: SOB x2-3 days, acute onset of chest pain starting prior to admission. Troponin negative 3. Patient has been without Imdur 4 days, resumed; possibly contributing to symptoms. Consult to patient's atv mechanic, Dr. Del Toro, seen by Dr. Rodriguez, as patient with atypical chest pain recommended discharge home to follow-up with his primary atv mechanic as outpatient. Continue home Statin, Metoprolol, Coumadin. CHF: Chronic, Systolic. Echo 09/07/13 w/ EF 30-35%, s/p AICD, last interrogation approx 4mo ago. No evidence of fluid overload, BNP only 191. CXR w/ no acute findings. Continue metoprolol. Acute kidney injury/hyponatremia: Likely secondary to over-diuresis and decreased PO intake. Creatinine 2.13, previously 1.61 on 01/06/16. Held home Lasix and creatinine improved to 1.93 and sodium improved from 126 to 130. Decrease home Lasix from twice daily to once daily. Leukocytosis: WBC 14.4, somewhat chronically elevated based on review of previous labs. Possibly an element of hemoconcentration with dehydration/FRANCISCO. No signs of acute infection. Afebrile. CXR w/ no acute findings. U/a negative. A-fib: Chronic. Continue home Digoxin/Metoprolol. INR therapeutic, continue home Coumadin. Monitor on telemetry. Chronic Pain: Continue home Morphine PO. DM: Hemoglobin A1c 7.3 suggests reasonable outpatient control. Continue home basal insulin. Monitor Accu-Cheks and cover with SSI as needed. Continue PCP follow-up. Tobacco Abuse: Cessation counseling. DVT Prophylaxis: Coumadin Discharge Planning Cleared by cardiology for discharge. Discharge patient to home Condition on discharge: Improved Heart healthy diabetic Diet as tolerated Regular activity Rx written: Isosorbide, Lasix Follow-up with primary care physician and cardiology Problem Qualifiers (1) Chest pain: Qualified Codes: R07.9 - Chest pain, unspecified (2) CHF (congestive heart failure): Qualified Codes: I50.22 - Chronic systolic (congestive) heart failure (3) A-fib: Qualified Codes: I48.91 - Unspecified atrial fibrillation (4) Chronic pain: Qualified Codes: G89.4 - Chronic pain syndrome (5) DM (diabetes mellitus): Qualified Codes: E11.51 - Type 2 diabetes mellitus with diabetic peripheral angiopathy without gangrene; 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
[2017-04-02] MEDS: INSULIN ASPART SUPPLEMENTAL SCALE SQ SCH (08:00)
[2017-04-02 08:01] VITALS: BP 120/66; PULSE 60; RESP 18; TEMP 97.4; O2SAT 97
[2017-04-02] MEDS: DOCUSATE SODIUM 50 MG/SENNA 8.6 MG TAB PO SCH (09:00)
[2017-04-02] MEDS: INSULIN DETEMIR 100 UNITS/ML VIAL SQ SCH (09:00)
[2017-04-02] MEDS: SODIUM CHLORIDE 0.9% FLUSH 10 ML FLUSH IV FLUSH SCH (09:09)
[2017-04-02] MEDS: DIGOXIN 0.125 MG TAB PO SCH (09:10)
[2017-04-02] MEDS: METOPROLOL SUCCINATE 50 MG EXTENDED RELEASE TAB PO SCH (09:10)
[2017-04-02] MEDS: ISOSORBIDE MONONITRATE 30 MG TAB PO SCH (09:10)
== END 2017-04-02 10:59 | disposition home or self-care (01) ==
LOC: NEPE 21:33 → NEDA 04-01 02:25 → NEPFCDU 04-01 03:33 → NEPGCP 04-01 18:34
PROVIDERS: ADMIT Hospitalist; ATTEND Hospitalist
DX: R07.9 Chest pain, unspecified (principal); I11.0 Hypertensive heart disease with heart failure; I50.22 Chronic systolic (congestive) heart failure; I42.9 Cardiomyopathy, unspecified; I48.2 Chronic atrial fibrillation; I25.10 Atherosclerotic heart disease of native coronary artery without angina pectoris; E86.0 Dehydration; E11.40 Type 2 diabetes mellitus with diabetic neuropathy, unspecified; D72.829 Elevated white blood cell count, unspecified; M54.9 Dorsalgia, unspecified; G89.29 Other chronic pain; E87.1 Hypo-osmolality and hyponatremia; N17.9 Acute kidney failure, unspecified; K74.60 Unspecified cirrhosis of liver; E78.00 Pure hypercholesterolemia, unspecified; F17.200 Nicotine dependence, unspecified, uncomplicated; Z79.01 Long term (current) use of anticoagulants; Z79.4 Long term (current) use of insulin; Z95.810 Presence of automatic (implantable) cardiac defibrillator; Z86.79 Personal history of other diseases of the circulatory system; Z89.511 Acquired absence of right leg below knee
CPT/HCPCS: 71010; 80053; 81001; 82948; 83036; 83735; 83880; 84484; 85025; 85610; 85730; 93005; 93306; 96361; 96372; 96374; 96375; 96376; 99285; G0378; J1815; J2270; J2405; J7040

== ENCOUNTER 2017-06-23 08:21 | Inpatient (IN) | payer MEDICARE, MEDICAID ==
[2017-06-23] VITALS (9 sets, daily range): BP systolic 105–181; BP diastolic 58–100; PULSE 60–78; RESP 18–26; TEMP 97.1–97.3; O2SAT 94–100
[~2017-06-23] VITALS: Ht 177.8 cm; Wt 95.0 kg
[~2017-06-23 08:21] MED LIST changes: -ATOR1TAB18 PO; +ATOR80TA45 PO; -COMMODE 3-IN-11 MIS; -DOCU100T9 PO; +METO1TAB9 PO; -METO50TA11 PO; +MORP15IN3 PO; -MORP15TA73 PO; -SODI1TAB PO; -SPIR25TA PO; -[UNRECOGNIZED DRUG - OTHER] TOP
--- NOTE | 2017-06-23 08:52 | PD ---
HPI Chief Complaint: Cardiac Complaint Time Seen by Provider: 08:46 Travel History International Travel<30 days: No Contact w/Intl Traveler<30days: No Traveled to known affect area: No History of Present Illness HPI 62yo M presented to the ED via ambulance for chest pain. Pt reports that about 2 :30am he started having chest pain over his left sternal border. He describes the pain as pressure and sharp in nature without radiation. He states that when it first started it was a 9/10, but has gotten better at a 4/10 following administration 2 doses intranasal nitro in [place] en route to the hospital. He reports a significant medical history of PAD s/p RLE amputation and L lower phalanges amputation, CHF, type 2 diabetes, AFib and tobacco use. He follows with Dr. Del Toro for cardiology. He reports SOB and headache. He denies N/V/D, cough, blurred vision or weakness. Modifying Factors: better with nitroglycerin Associated Signs & Symptoms: chest pain Risk Factors: Cardiac history, CHF PFSH Past Medical History Hx Anticoagulant Therapy: Yes AAA: Yes (REPAIR ) Arthritis: No Asthma: No Atrial Fibrillation: Yes Autoimmune Disease: No Blood Disorders: No Anxiety: No Depression: No Heart Rhythm Problems: Yes (A-FIB, AFLUTTER) Cancer: No Cardiac Catheterization: Yes (x 3) Cardiomyopathy: Yes Cardiovascular Problems: Yes High Cholesterol: Yes Chemotherapy: No Chest Pain: Yes Congestive Heart Failure: Yes Cirrhosis: Yes (denies) COPD: No Cerebrovascular Accident: No Coronary Artery Disease: Yes Diabetes: Yes Patient Takes Glucophage: No Diminished Hearing: No Endocrine: Yes Gastrointestinal Disorders: No GERD: No Glaucoma: No Genitourinary: No Headaches: No Hepatitis: Yes (C, Hx of B) Hiatal Hernia: No Hypertension: Yes Immune Disorder: No Implanted Vascular Access Dvce: Yes Kidney Stones: No Musculoskeletal: Yes (DM NEUROPATHY) Neurologic: No Psychiatric: No Reproductive: No Respiratory: No Immunizations Current: Yes Migraines: No Myocardial Infarction: No Radiation Therapy: No Renal Failure: No Seizures: No Sickle Cell Disease: No Sleep Apnea: No Thyroid Disease: No Ulcer: No PNEUMOCCOCAL Vaccine (Year): 2 Past Surgical History Abdominal Surgery: Yes (AAA REPAIR) AICD: Yes ([employer] Appendectomy: No Arteriovenous Shunt: No Cardiac Surgery: Yes (CAROTID ENDARTERECTOMY) Cholecystectomy: No Ear Surgery: No Endocrine Surgery: No Eye Surgery: No Genitourinary Surgery: No Gynecologic Surgery: No Insulin Pump: No Joint Replacement: No Oral Surgery: No Pacemaker: Yes Thoracic Surgery: No Tonsillectomy: Yes Other Surgery: Yes (LT BKA, ALL DIGITS FROM RT FOOT, AAA, PACEMAKER, ENDARECTOMY) Social History Alcohol Use: No Tobacco Use: Yes (2 PPD) Substance Use: No Allergies-Medications (Allergen,Severity, Reaction): Coded Allergies: Sulfa (Sulfonamide Antibiotics) (Verified Allergy, Severe, Itching, Elevated Blood Pressure, SOB, 06/23/17) sulfamethoxazole (Verified Allergy, Severe, Elevated blood pressure, Generalized itching, 06/23/17) trimethoprim (Verified Allergy, Severe, Elevated blood pressure, Generalized itching, 06/23/17) MRI PRECAUTION (Verified Adverse Reaction, Severe, PACEMAKER KD NOT REVO, 06/23/17) Reported Meds & Prescriptions Reported Meds & Active Scripts Active Isosorbide Mononitrate ER (Isosorbide Mononitrate) 30 Mg [place] 30 Mg PO DAILY Furosemide 20 Mg Tab 40 Mg PO DAILY Reported Morphine Sulfate 15 Mg/Ml Inj 15 Mg PO 5 TIMES A DAY Atorvastatin (Atorvastatin Calcium) 80 Mg Tab 80 Mg PO HS Wheelchair (Device) 1 Mis Mis 1 Ea .ROUTE DIRECTED Warfarin 3 Mg Tab 3 Mg PO DAILY Levemir Inj (Insulin Detemir) 1,000 unit/ 10 ML Vial 30 Units SQ Q12HR Do not mix with any other Insulin. Digoxin 0.125 Mg Tab 0.125 Mg PO DAILY Metoprolol Succinate ER 24 HR (Metoprolol Succinate) 50 Mg Tab 50 Mg PO DAILY Review of Systems Except as stated in HPI: all other systems reviewed are Neg Physical Exam Narrative GENERAL: 66yo M who is well-developed and well nourished elderly white male patient who has an mild distress. Awake oriented 3. SKIN: Warm and dry. HEAD: Atraumatic. Normocephalic. EYES: Pupils equal and round. No scleral icterus. No injection or drainage. NECK: Trachea midline. No JVD. Supple. CARDIOVASCULAR: Irregularly irregular with tachycardia. Pulses are present equal bilaterally. RESPIRATORY: No accessory muscle use. Clear to auscultation. Breath sounds equal bilaterally. GASTROINTESTINAL: Abdomen soft, non-tender, nondistended. Hepatic and splenic margins not palpable. MUSCULOSKELETAL: Extremities without clubbing, cyanosis, or edema. No obvious deformities. No RLE or L foot phalanges due to amputation. LLE ecchymotic and cold to touch from mid-calf down. NEUROLOGICAL: Awake and alert. No obvious cranial nerve deficits. Motor grossly within normal limits. Normal speech. PSYCHIATRIC: Appropriate mood and affect; insight and judgment normal. Data Data Last Documented VS Vital Signs Date Time Temp Pulse Resp B/P (MAP) Pulse Ox O2 Delivery O2 Flow Rate FiO2 06/23/17 08:49 99 Nasal Cannula 2.00 06/23/17 08:35 81 06/23/17 08:31 97.3 26 181/86 (117) Orders Orders Electrocardiogram (06/23/17 08:46) B-Type Natriuretic Peptide (06/23/17 08:46) Ckmb (Isoenzyme) Profile (06/23/17 08:46) Complete Blood Count With Diff (06/23/17 08:46) Comprehensive Metabolic Panel (06/23/17 08:46) Magnesium (Mg) (06/23/17 08:46) Prothrombin Time / Inr (Pt) (06/23/17 08:46) Act Partial Throm Time (Ptt) (06/23/17 08:46) Troponin I (06/23/17 08:46) Chest, Single Ap (06/23/17 08:46) Ecg Monitoring (06/23/17 08:46) Bilateral Bp Monitoring (06/23/17 08:46) Iv Access Insert/Monitor (06/23/17 08:46) Oximetry (06/23/17 08:46) Oxygen Administration (06/23/17 08:46) Sodium Chloride 0.9% Flush (Ns Flush) (06/23/17 09:00) Metoprolol Tartrate Inj (Lopressor Inj) (06/23/17 09:30) CKMB (06/23/17 08:50) CKMB% (06/23/17 08:50) Aspirin (Aspirin) (06/23/17 09:45) Heparin Inj (Heparin Inj) (06/23/17 09:45) Heparin Inj (Heparin Inj) (06/23/17 15:45) Heparin Inj (Heparin Inj) (06/23/17 15:45) Heparin-D5w 25,000 U/250 Ml (Heparin-D5w (06/23/17 09:45) Act Partial Throm Time (Ptt) (06/23/17 09:39) Cbc No Diff, Includes Plts (06/23/17 09:39) Cbc No Diff, Includes Plts (06/26/17 06:00) Act Partial Throm Time (Ptt) (06/23/17 16:39) Occult Blood (Hemoccult) Stool (06/23/17 09:39) Admit Order (Ed Use Only) (06/23/17 10:14) Labs Laboratory Tests Test 06/23/17 08:50 White Blood Count 13.3 TH/MM3 Red Blood Count 4.27 MIL/MM3 Hemoglobin 13.5 GM/DL Hematocrit 38.7 % Mean Corpuscular Volume 90.8 FL Mean Corpuscular Hemoglobin 31.6 PG Mean Corpuscular Hemoglobin Concent 34.8 % Red Cell Distribution Width 15.5 % Platelet Count 211 TH/MM3 Mean Platelet Volume 8.1 FL Neutrophils (%) (Auto) 79.1 % Lymphocytes (%) (Auto) 11.5 % Monocytes (%) (Auto) 6.8 % Eosinophils (%) (Auto) 1.5 % Basophils (%) (Auto) 1.1 % Neutrophils # (Auto) 10.5 TH/MM3 Lymphocytes # (Auto) 1.5 TH/MM3 Monocytes # (Auto) 0.9 TH/MM3 Eosinophils # (Auto) 0.2 TH/MM3 Basophils # (Auto) 0.1 TH/MM3 CBC Comment DIFF FINAL Differential Comment Prothrombin Time 94.7 SEC Prothromb Time International Ratio 9.5 RATIO Activated Partial Thromboplast Time 53.2 SEC Blood Urea Nitrogen 21 MG/DL Creatinine 1.41 MG/DL Random Glucose 243 MG/DL Total Protein 7.4 GM/DL Albumin 2.7 GM/DL Calcium Level 8.3 MG/DL Magnesium Level 1.8 MG/DL Alkaline Phosphatase 83 U/L Aspartate Amino Transf (AST/SGOT) 38 U/L Alanine Aminotransferase (ALT/SGPT) 21 U/L Total Bilirubin 0.4 MG/DL Sodium Level 132 MEQ/L Potassium Level 4.0 MEQ/L Chloride Level 100 MEQ/L Carbon Dioxide Level 22.6 MEQ/L Anion Gap 9 MEQ/L Estimat Glomerular Filtration Rate 51 ML/MIN Total Creatine Kinase 187 U/L Creatine Kinase MB 12.7 NG/ML Troponin I 1.98 NG/ML B-Type Natriuretic Peptide 230 PG/ML MDM Medical Decision Making Medical Screen Exam Complete: Yes Emergency Medical Condition: Yes Medical Record Reviewed: Yes Interpretation(s) EKG shows atrial fibrillation at a rate of 80 bpm. There are T-wave inversions at ST depressions notable in the inferior leads end V5 in V6. There are nonspecific ST changes in V2 or V3. Last 24 hours Impressions Chest X-Ray 06/23/17 0846 Signed Impressions: Service Date/Time: June 09:04 - CONCLUSION: Normal examination. Left subclavian pacemaker in good position. John Elizalde MD Laboratory Tests Test 06/23/17 08:50 White Blood Count 13.3 TH/MM3 (4.0-11.0) Red Blood Count 4.27 MIL/MM3 (4.50-5.90) Hematocrit 38.7 % (39.0-51.0) Neutrophils (%) (Auto) 79.1 % (16.0-70.0) Neutrophils # (Auto) 10.5 TH/MM3 (1.8-7.7) Prothrombin Time 94.7 SEC (9.8-11.6) Prothromb Time International Ratio 9.5 RATIO Activated Partial Thromboplast Time 53.2 SEC (24.3-30.1) Blood Urea Nitrogen 21 MG/DL (7-18) Creatinine 1.41 MG/DL (0.60-1.30) Random Glucose 243 MG/DL (74-106) Albumin 2.7 GM/DL (3.4-5.0) Calcium Level 8.3 MG/DL (8.5-10.1) Aspartate Amino Transf (AST/SGOT) 38 U/L (15-37) Sodium Level 132 MEQ/L (136-145) Estimat Glomerular Filtration Rate 51 ML/MIN (>89) Creatine Kinase MB 12.7 NG/ML (0.5-3.6) Troponin I 1.98 NG/ML (0.02-0.05) B-Type Natriuretic Peptide 230 PG/ML (0-100) Differential Diagnosis ACS versus [place] versus STEMI versus CHF versus pneumonia versus anxiety versus dysrhythmias Narrative Course EKG shows A. fib which is not new. There are ST changes which are concerning compared to old EKG on record. I have tried to get in contact with Dr. Del Toro who the patient follows up with but was not able to get through. Patient was not initiated on aspirin, metoprolol to lower the blood pressure, an when I received word on elevated troponin, heparin was not also initiated in the ER. Dr. Rodriguez came in to see the patient, in states that patient stress testing done several days ago with fairly in concerning. He would like the patient to be medically admitted at this point. Case was discussed with Dr. Peralta for admission. Diagnosis Primary Impression: Non-ST elevation [place] (NSTEMI) Admitting Information Admitting Physician Requests: Admit Harriet Villavicencio MD Jun 23, 2017 08:52
[2017-06-23] MEDS ORDERED: SODIUM CHLORIDE 0.9% FLUSH 10 ML FLUSH IVF PRN (09:00)
[2017-06-23 09:10] LABS: AUTOMATED NEUTROPHIL # 10.5 TH/MM3 (1.8-7.7); BASOPHIL # 0.1 TH/MM3 (0-0.2); BASOPHIL % 1.1 % (0.0-2.0); EOSINOPHIL # 0.2 TH/MM3 (0-0.4); EOSINOPHIL % 1.5 % (0.0-4.0); HEMATOCRIT 38.7 % (39.0-51.0); HEMOGLOBIN 13.5 GM/DL (13.0-17.0); LYMPH % 11.5 % (9.0-44.0); LYMPHOCYTE # 1.5 TH/MM3 (1.0-4.8); MEAN CELL VOLUME 90.8 FL (80.0-100.0); MEAN CORPUSCULAR HEMOGLOBIN 31.6 PG (27.0-34.0); MEAN CORPUSCULAR HGB CONC 34.8 % (32.0-36.0); MEAN PLATELET VOLUME 8.1 FL (7.0-11.0); MONO % 6.8 % (0.0-8.0); MONOCYTE # 0.9 TH/MM3 (0-0.9); NEUT % 79.1 % (16.0-70.0); PLATELET COUNT 211 TH/MM3 (150-450); RED BLOOD COUNT 4.27 MIL/MM3 (4.50-5.90); RED CELL DISTRIBUTION WIDTH 15.5 % (11.6-17.2); WHITE BLOOD COUNT 13.3 TH/MM3 (4.0-11.0)
[2017-06-23 09:16] LABS: PROTHROMBIN TIME - PATIENT 94.7 SEC (9.8-11.6)
[2017-06-23 09:21] LABS: INTERNATIONAL NORMALIZED RATIO 9.5 RATIO
[2017-06-23 09:24] LABS: ALBUMIN 2.7 GM/DL (3.4-5.0); ALT (GPT) 21 U/L (12-78); AST (GOT) 38 U/L (15-37); BICARBONATE 22.6 MEQ/L (21.0-32.0); BLOOD UREA NITROGEN 21 MG/DL (7-18); CALCIUM 8.3 MG/DL (8.5-10.1); CHLORIDE 100 MEQ/L (98-107); CREATININE 1.41 MG/DL (0.60-1.30); GLOMERULAR FILTRATION RATE 51 ML/MIN (>89); GLUCOSE,RANDOM 243 MG/DL (74-106); MAGNESIUM 1.8 MG/DL (1.5-2.5); SODIUM (NA) 132 MEQ/L (136-145)
[2017-06-23 09:28] LABS: ALKALINE PHOSPHATASE 83 U/L (45-117); TOTAL BILIRUBIN ADULT 0.4 MG/DL (0.2-1.0); TOTAL PROTEIN 7.4 GM/DL (6.4-8.2)
[2017-06-23] MEDS ORDERED: METOPROLOL TARTRATE 5 MG/5 ML VIAL IV PUSH PRN (09:30)
--- NOTE | 2017-06-23 09:30 | RADRPT ---
EXAM DATE/TIME: 06/23/2017 09:04 [facility] COMPARISON: CHEST SINGLE AP, March 31, 2017, 23:38. INDICATIONS : Chest pain. MEDICAL HISTORY : Diabetes mellitus type II. Congestive heart failure. Hepatitis C. Periferal vascular disease. Cor onary artery disease. Cirrhosis. Cardiomyopathy. Afib. SURGICAL HISTORY : Abdominal aortic aneurysm repair. Pacemaker. Carotid endarterectomy. Cardiac cath. Defibrillator. ENCOUNTER: Initial ACUITY: 1 day PAIN SCORE: 5/10 LOCATION: Bilateral chest FINDINGS: A single view of the chest demonstrates the lungs to be symmetrically aerated without evidence of mas s, infiltrate or effusion. The cardiomediastinal contours are unremarkable. Osseous structures are intact. CONCLUSION: Normal examination. Left subclavian pacemaker in good position. John Elizalde MD on June 23, 2017 at 9:28 Board Certified Radiologist. This report was verified electronically.
[2017-06-23 09:33] LABS: TROPONIN I 1.98 NG/ML (0.02-0.05)
[2017-06-23] MEDS ORDERED: ASPIRIN 325 MG TAB PO ONE (09:45)
[2017-06-23] MEDS ORDERED: HEPARIN SODIUM - IV 10,000 UNITS/10 ML VIAL IV PUSH ONE (09:45)
[2017-06-23] MEDS ORDERED: SODIUM CHLORIDE 0.9% FLUSH 10 ML FLUSH IV FLUSH PRN (11:15)
[2017-06-23] MEDS ORDERED: DEXTROSE 50% IN WATER 50 ML VIAL(D50) IV PUSH PRN (11:15)
[2017-06-23] MEDS ORDERED: NALOXONE HCL 0.4 MG/ML AMP IV PUSH PRN (11:15)
[2017-06-23] MEDS ORDERED: GLUCAGON 1 MG/ML VIAL OTHER PRN (11:15)
[2017-06-23] MEDS ORDERED: hydrALAZINE HCL 20 MG/ML VIAL IV PUSH PRN (11:15)
[2017-06-23] MEDS ORDERED: ONDANSETRON HCL 4 MG/2 ML VIAL IVP PRN (11:15)
[2017-06-23] MEDS ORDERED: ACETAMINOPHEN 325 MG TAB PO PRN ×2 (11:15)
[2017-06-23] MEDS ORDERED: MAGNESIUM HYDROXIDE SUSP 30 ML CUP PO PRN (11:15)
[2017-06-23] MEDS ORDERED: HUMALOG SQ (11:44)
--- NOTE | 2017-06-23 13:22 | HHI.HP ---
[facility] Di Dutton D.O. Admission Diagnosis Non-ST elevation [place] Diagnoses: (1) Non-ST elevation [place] (NSTEMI) Chief Complaint: chest pain Travel History International Travel<30 Days: No Contact w/Intl Traveler <30 Da: No Traveled to Known Affected Are: No History of Present Illness 66-year-old male with a PMH of HTN, A. fib on Coumadin, CHF (Echo 09/17/13 w/ EF 30-35%), PVD, h/o Left BKA, AICD, Hepatitis C, Cirrhosis, DM, Chronic Back Pain and Tobacco Abuse who presented to the emergency department with complaint of an acute onset of substernal chest pain without any radiation rated over 8 intensity and described as pressure-like, associated with diaphoresis. States, this was preceded by elevated blood pressure this morning which patient took twice his medicine. On arrival Trop 1.98. EKG w/ no acute ischemia. BNP 230. INR 9.5. CXR w/ no acute findings. Cardiology was consulted. He has no GI bleed and denies any febrile episode. Review of Systems Except as stated in HPI: all other systems reviewed are Neg Past Family Social History Past Medical History HTN, A. fib on Coumadin, CHF (Echo 09/17/13 w/ EF 30-35%), PVD, h/o Left BKA, AICD, Hepatitis C, Cirrhosis, DM, Chronic Back Pain and Tobacco Abuse Past Surgical History Tonsillectomy AAA Repair, CEA, AICD, Liver Biopsy, Left BKA, Right Toe Amputations Reported Medications Isosorbide Mononitrate ER (Isosorbide Mononitrate) 30 Mg [place] 30 Mg PO DAILY Furosemide 20 Mg Tab 40 Mg PO DAILY Reported Morphine Sulfate 15 Mg/Ml Inj 15 Mg PO 5 TIMES A DAY Atorvastatin (Atorvastatin Calcium) 80 Mg Tab 80 Mg PO HS Wheelchair (Device) 1 Mis Mis 1 Ea .ROUTE DIRECTED Warfarin 3 Mg Tab 3 Mg PO DAILY Levemir Inj (Insulin Detemir) 1,000 unit/ 10 ML Vial 30 Units SQ Q12HR Do not mix with any other Insulin. Digoxin 0.125 Mg Tab 0.125 Mg PO DAILY Metoprolol Succinate ER 24 HR (Metoprolol Succinate) 50 Mg Tab 50 Mg PO DAILY Allergies: Coded Allergies: Sulfa (Sulfonamide Antibiotics) (Verified Allergy, Severe, Itching, Elevated Blood Pressure, SOB, 06/23/17) sulfamethoxazole (Verified Allergy, Severe, Elevated blood pressure, Generalized itching, 06/23/17) trimethoprim (Verified Allergy, Severe, Elevated blood pressure, Generalized itching, 06/23/17) MRI PRECAUTION (Verified Adverse Reaction, Severe, PACEMAKER KD NOT REVO, 06/23/17) Family History positive for DM and CAD Social History Alcohol Use: No Tobacco Use: Yes (1/2 PPD) Substance Use: No Physical Exam Vital Signs Vital Signs Date Time Temp Pulse Resp B/P (MAP) Pulse Ox O2 Delivery O2 Flow Rate FiO2 06/23/17 11:34 78 18 143/94 (110) 100 Nasal Cannula 2.00 06/23/17 08:49 99 Nasal Cannula 2.00 06/23/17 08:49 100 Nasal Cannula 2.00 06/23/17 08:35 81 99 Nasal Cannula 2.00 06/23/17 08:31 97.3 73 26 181/86 (117) 99 Physical Exam GENERAL: This is a well-nourished, well-developed patient, in no apparent distress. SKIN: No rashes, ecchymoses or lesions. Cool and dry. HEAD: Atraumatic. Normocephalic. No temporal or scalp tenderness. EYES: Pupils equal round and reactive. Extraocular motions intact. No scleral icterus. No injection or drainage. ENT: Nose without bleeding, purulent drainage or septal hematoma. Throat without erythema, tonsillar hypertrophy or exudate. Uvula midline. Airway patent. NECK: Trachea midline. No JVD or lymphadenopathy. Supple, nontender, no meningeal signs. CARDIOVASCULAR: Regular rate and rhythm without murmurs, gallops, or rubs. RESPIRATORY: Clear to auscultation. Breath sounds equal bilaterally. No wheezes , rales, or rhonchi. GASTROINTESTINAL: Abdomen soft, non-tender, nondistended. No hepato-splenomegaly , or palpable masses. No guarding. MUSCULOSKELETAL: Extremities without clubbing, cyanosis, or edema. Left BKA NEUROLOGICAL: Awake and alert. Cranial nerves II through XII intact. Motor and sensory grossly within normal limits. Five out of 5 muscle strength in all muscle groups. Normal speech. Laboratory Laboratory Tests Test 06/23/17 08:50 White Blood Count 13.3 Red Blood Count 4.27 Hemoglobin 13.5 Hematocrit 38.7 Mean Corpuscular Volume 90.8 Mean Corpuscular Hemoglobin 31.6 Mean Corpuscular Hemoglobin Concent 34.8 Red Cell Distribution Width 15.5 Platelet Count 211 Mean Platelet Volume 8.1 Neutrophils (%) (Auto) 79.1 Lymphocytes (%) (Auto) 11.5 Monocytes (%) (Auto) 6.8 Eosinophils (%) (Auto) 1.5 Basophils (%) (Auto) 1.1 Neutrophils # (Auto) 10.5 Lymphocytes # (Auto) 1.5 Monocytes # (Auto) 0.9 Eosinophils # (Auto) 0.2 Basophils # (Auto) 0.1 CBC Comment DIFF FINAL Differential Comment Prothrombin Time 94.7 Prothromb Time International Ratio 9.5 Activated Partial Thromboplast Time 53.2 Blood Urea Nitrogen 21 Creatinine 1.41 Random Glucose 243 Total Protein 7.4 Albumin 2.7 Calcium Level 8.3 Magnesium Level 1.8 Alkaline Phosphatase 83 Aspartate Amino Transf (AST/SGOT) 38 Alanine Aminotransferase (ALT/SGPT) 21 Total Bilirubin 0.4 Sodium Level 132 Potassium Level 4.0 Chloride Level 100 Carbon Dioxide Level 22.6 Anion Gap 9 Estimat Glomerular Filtration Rate 51 Total Creatine Kinase 187 Creatine Kinase MB 12.7 Troponin I 1.98 B-Type Natriuretic Peptide 230 Result Diagram: 06/23/17 0850 06/23/17 0850 Imaging Last Impressions Chest X-Ray 06/23/17 0846 Signed Impressions: Service Date/Time: June 09:04 - CONCLUSION: Normal examination. Left subclavian pacemaker in good position. John Elizalde MD Septic Shock Reassessment Septic shock perfusion: reassessment completed Caprini VTE Risk Assessment Caprini VTE Risk Assessment: Mod/High Risk (score >= 2) Caprini Risk Assessment Model Point Value = 1 Point Value = 2 Point Value = 3 Point Value = 5 Age 41-60 Minor surgery BMI > 25 kg/m2 Swollen legs Varicose veins or History of unexplained or recurrent spontaneous Oral contraceptives or hormone replacement Sepsis (< 1 month) Serious lung disease, including pneumonia (< 1 month) Abnormal pulmonary function Acute myocardial infarction Congestive heart failure (< 1 month) History of inflammatory bowel disease Medical patient at bed rest Age 61-74 Arthroscopic surgery Major open surgery (> 45 min) Laparoscopic surgery (> 45 min) Malignancy Confined to bed (> 72 hours) Immobilizing plaster cast Central venous access Age >= 75 History of VTE Family history of VTE Factor V Leiden Prothrombin [id number] Lupus anticoagulant Anticardiolipin antibodies Elevated serum homocysteine Heparin-induced thrombocytopenia Other congenital or acquired thrombophilia Stroke (< 1 month) Elective arthroplasty Hip, pelvis, or leg fracture Acute spinal cord injury (< 1 month) Prophylaxis Regimen Total Risk Factor Score Risk Level Prophylaxis Regimen 0-1 Low Early ambulation 2 Moderate Order ONE of the following: *Sequential Compression Device (SCD) *Heparin 5000 units SQ BID 3-4 Higher Order ONE of the following medications: *Heparin 5000 units SQ TID *Enoxaparin/Lovenox 40 mg SQ daily (WT < 150 kg, CrCl > 30 mL/min) *Enoxaparin/Lovenox 30 mg SQ daily (WT < 150 kg, CrCl > 10-29 mL/min) *Enoxaparin/Lovenox 30 mg SQ BID (WT < 150 kg, CrCl > 30 mL/min) AND/OR *Sequential Compression Device (SCD) 5 or more Highest Order ONE of the following medications: *Heparin 5000 units SQ TID (Preferred with Epidurals) *Enoxaparin/Lovenox 40 mg SQ daily (WT < 150 kg, CrCl > 30 mL/min) *Enoxaparin/Lovenox 30 mg SQ daily (WT < 150 kg, CrCl > 10-29 mL/min) *Enoxaparin/Lovenox 30 mg SQ BID (WT < 150 kg, CrCl > 30 mL/min) AND *Sequential Compression Device (SCD) Assessment and Plan Problem List: (1) Non-ST elevation [place] (NSTEMI) ICD Code: I21.4 - Non-ST elevation (NSTEMI) myocardial infarction Status: Acute Assessment and Plan 66 years old man with 1. NSTEMI Check serial cardiac enzymes Start nitroglycerin paste, aspirin Hold on heparin drip secondary to elevated APTT Resume home Statin, Metoprolol Consult cardiology for evaluation for left heart catheterization Check 2-D echo 2. CHF: Chronic. Systolic. Echo 09/07/13 w/ EF 30-35%, s/p AICD No evidence of fluid overload. BNP mildly elevated @230, CXR w/ no acute findings, images reviewed by me Resume outpatient medications 3. Supra Therapeutic INR Treat with Vit K 5mg PO x 1 4. Leukocytosis: WBC 13.3, CXR w/ no acute findings, images reviewed by me.Check UA and repeat labs in am. 5. A-fib: Chronic. Resume home Digoxin/Metoprolol. INR supra therapeutic, Hold Coumadin. 6. Chronic Pain syndrome: Resume home Morphine PO 7. DM: Sliding scale w/ Accu-Cheks, resume home Insulin 8. Tobacco Abuse: Ativan prn, no NicoDerm to avoid vasoconstriction. 9. DVT Prophylaxis: Heparin Code Status Full code Discussed Condition With Patient, ED physician Physician Certification 2 Midnight Certification Type: Admission for Inpatient Services Order for Inpatient Services The services are ordered in accordance with Medicare regulations or non- Medicare payer requirements, as applicable. In the case of services not specified as inpatient-only, they are appropriately provided as inpatient services in accordance with the 2-midnight benchmark. Estimated LOS (days): 2 days is the estimated time the patient will need to remain in the hospital, assuming treatment plan goals are met and no additional complications. Post-Hospital Plan: Not yet determined Farhat Peralta MD Jun 23, 2017 13:22
[2017-06-23] MEDS: NITROGLYCERIN 2% OINT 1 GM PACKET TOP SCH ×3 (14:00→23:28)
[2017-06-23] MEDS ORDERED: PHYTONADIONE 5 MG/SWFI 5 ML ORAL SYR PO ONE (14:15)
[2017-06-23] MEDS: INSULIN ASPART SUPPLEMENTAL SCALE SQ SCH ×3 (14:17→23:28)
--- NOTE | 2017-06-23 14:45 | MB ---
cc: RAEANN FREGOSO DATE OF CONSULTATION: 06/23/2017 HISTORY OF PRESENT ILLNESS Mr. Resendiz is a 66-year-old white male, a patient of Dr. Del Toro, with a history of atrial fibrillation, congestive heart failure, ischemic cardiomyopathy, left BKA and ICD placement. He presented with sharp substernal chest discomfort which started early this morning. He also had shortness of breath. He still is mildly short of breath but his chest pain is no resolved. He was severely hypertensive early this morning with systolic blood pressure close to 200 at home. PAST MEDICAL HISTORY Positive for: 1. Atrial fibrillation. 2. Hypertension. 3. Congestive heart failure. Echocardiogram in 2013 showed ejection fraction of 30-35%. 4. Left BKA. 5. ICD placement. 6. Diabetes mellitus. 7. Chronic back pain. 8. Femoral aortic aneurysm. 9. Right toe amputations. 10. History of hepatitis C. 11. Cirrhosis. 12. Chronic back pain. 13. Abdominal aortic aneurysm repair. 14. Carotid endarterectomy. 15. Liver biopsy. BKA MEDICATIONS Medications include: 1. Metoprolol. 2. Digoxin. 3. Levemir. 4. Warfarin. 5. Atorvastatin. 6. Morphine. 7. Furosemide. 8. Isosorbide. ALLERGIES SULFA, SULFAMETHOXAZOLE, TRIMETHOPRIM. SOCIAL HISTORY The patient smokes half pack a day. He does not drink alcohol. FAMILY HISTORY Positive for coronary artery disease, diabetes mellitus. REVIEW OF SYSTEMS Review of systems is otherwise negative. PHYSICAL EXAMINATION VITAL SIGNS: Blood pressure 181/86, pulse 73 and irregular. HEENT: Negative. NECK: 2+ carotid upstrokes. No bruits. LUNGS: Lungs are clear. HEART: Regular with no murmur, gallop or rub. ABDOMEN: Soft. No bruits. EXTREMITIES: With mild edema, is status post left BKA. Diminished distal pulses. NEUROLOGIC: Exam is grossly nonfocal. The patient is in no distress. EKG Reviewed and showed atrial fibrillation, old anteroseptal infarct and diffuse ST-T changes. Minimal change from previous EKG from March of 2017. LABORATORY DATA Hemoglobin 13.5, potassium 4.0, creatinine 1.41, AST 38, ALT 21, CK 187, troponin 1.98, BNP 230. DIAGNOSIS 1. Chest pain. 2. Elevated troponin. 3. Coronary artery disease. 4. Ischemic cardiomyopathy. 5. Atrial fibrillation. 6. Peripheral vascular disease. 7. Hypertension. 8. Status post left BKA. 9. History of ICD placement. 10. Hepatitis C. 11. Cirrhosis. DISPOSITION Mr. Resendiz will be monitored on telemetry with serial enzymes and EKGs. His troponin is mildly elevated but his EKG does not show any significant change. His recent stress test on June was negative for ischemia and showed a fixed anteroapical and inferoapical defect consistent with myocardial infarction. The ejection fraction was calculated at 38%. We will continue and titrate therapy for hypertension. We will continue aggressive modification of his cardiac risk factors. He was again strongly encouraged to quit smoking. I will follow him for cardiology in Dr. Del Toro's absence. He will follow up with Dr. Del Toro, his primary certified industrial hygienist, in his office after discharge. MD EULA Holloway/JOAQUIN /1:41 PM /2:12 PM MTDEdita
[2017-06-23] MEDS ORDERED: HEPARIN SODIUM - IV 10,000 UNITS/10 ML VIAL IV PUSH PRN ×2 (15:45)
[2017-06-23] MEDS: MORPHINE SULFATE 15 MG TAB PO SCH ×2 (17:15→21:09)
--- NOTE | 2017-06-23 19:35 | EKG ---
Date Performed: 06/23/2017 Time Performed: 17:15:27 PTAGE: 66 years EKG: ELECTRONIC VENTRICULAR PACEMAKER ABNORMAL RHYTHM ECG Compared to prior electrocardiogram, V entricular pacemaker is now present PREVIOUS TRACING : 06/23/2017 08.36 DOCTOR: Khadar Daigle Interpretating Date/Time 06/23/2017 19:34:17
[2017-06-23] MEDS: INSULIN DETEMIR 100 UNITS/ML VIAL SQ SCH (21:00)
[2017-06-23] MEDS: ATORVASTATIN 80 MG TAB PO SCH (21:06)
[2017-06-23] MEDS: SODIUM CHLORIDE 0.9% FLUSH 10 ML FLUSH IV FLUSH SCH (21:09)
--- NOTE | 2017-06-23 21:42 | EKG ---
Date Performed: 06/23/2017 Time Performed: 20:36:19 PTAGE: 66 years EKG: Unclear underlying rhythm with ventricular pacemaker ANTEROSEPTAL MYOCARDIAL INFARCTION , O F INDETERMINATE AGE Nonspecific ST T-wave changes No significant change from prior electrocardiogram. PREVIOUS TRACING : 06/23/2017 17.15 DOCTOR: Khadar Daigle Interpretating Date/Time 06/23/2017 21:40:41
--- NOTE | 2017-06-23 21:51 | EKG ---
Date Performed: 06/23/2017 Time Performed: 08:36:19 PTAGE: 66 years EKG: ATRIAL FIBRILLATION ANTEROSEPTAL MYOCARDIAL INFARCTION ACUTE [place] PREVIOUS TRACING : 03/31/2017 22.35 DOCTOR: Francisco Edgar Interpretating Date/Time 06/23/2017 21:50:37
[2017-06-23 22:20] LABS: TROPONIN I GREATER THAN 40.00 NG/ML (0.02-0.05)
[2017-06-23 23:50] LABS: BILIRUBIN, URINE NEG (NEG); BLOOD, URINE MOD (NEG); GLUCOSE,URINE 300 mg/dL (NEG); HYALINE CAST, URINE 3 /lpf (RARE); KETONE, URINE NEG (NEG); NITRITE,URINE NEG (NEG); PH, URINE 6.5 (5.0-8.5); SQUAMOUS EPITHELIAL CELL URINE <1 /hpf (0-5); URINE COLOR YELLOW (YELLW/STRAW); URINE LEUKOCYTE ESTERASE NEG (NEG)
[2017-06-24] VITALS (13 sets, daily range): BP systolic 99–153; BP diastolic 57–85; PULSE 55–74; RESP 18–20; TEMP 97.2–97.8; O2SAT 95–98
[2017-06-24 03:59] LABS: AUTOMATED NEUTROPHIL # 9.4 TH/MM3 (1.8-7.7); BASOPHIL # 0.1 TH/MM3 (0-0.2); BASOPHIL % 1.1 % (0.0-2.0); EOSINOPHIL # 0.3 TH/MM3 (0-0.4); EOSINOPHIL % 2.4 % (0.0-4.0); HEMOGLOBIN 13.4 GM/DL (13.0-17.0); LYMPH % 15.2 % (9.0-44.0); MEAN CORPUSCULAR HEMOGLOBIN 31.6 PG (27.0-34.0); MEAN CORPUSCULAR HGB CONC 34.4 % (32.0-36.0); MEAN PLATELET VOLUME 8.1 FL (7.0-11.0); MONO % 9.5 % (0.0-8.0); MONOCYTE # 1.3 TH/MM3 (0-0.9); NEUT % 71.8 % (16.0-70.0); PLATELET COUNT 189 TH/MM3 (150-450); RED BLOOD COUNT 4.24 MIL/MM3 (4.50-5.90); RED CELL DISTRIBUTION WIDTH 15.6 % (11.6-17.2); WHITE BLOOD COUNT 13.1 TH/MM3 (4.0-11.0)
[2017-06-24 04:10] LABS: PROTHROMBIN TIME - PATIENT 59.7 SEC (9.8-11.6)
[2017-06-24 04:20] LABS: ALBUMIN 2.9 GM/DL (3.4-5.0); ALKALINE PHOSPHATASE 86 U/L (45-117); ALT (GPT) 34 U/L (12-78); AST (GOT) 161 U/L (15-37); BICARBONATE 28.3 MEQ/L (21.0-32.0); BLOOD UREA NITROGEN 25 MG/DL (7-18); CHLORIDE 99 MEQ/L (98-107); CREATININE 1.59 MG/DL (0.60-1.30); GLOMERULAR FILTRATION RATE 44 ML/MIN (>89); GLUCOSE,RANDOM 159 MG/DL (74-106); SODIUM (NA) 132 MEQ/L (136-145); TOTAL BILIRUBIN ADULT 0.7 MG/DL (0.2-1.0); TOTAL PROTEIN 7.7 GM/DL (6.4-8.2)
[2017-06-24 04:23] LABS: TROPONIN I GREATER THAN 40.00 NG/ML (0.02-0.05)
[2017-06-24] MEDS: ISOSORBIDE MONONITRATE 30 MG TAB PO SCH (06:35)
[2017-06-24] MEDS: NITROGLYCERIN 2% OINT 1 GM PACKET TOP SCH ×4 (06:35→22:57)
[2017-06-24] MEDS: MORPHINE SULFATE 15 MG TAB PO SCH ×5 (06:35→21:45)
[2017-06-24] MEDS: INSULIN ASPART SUPPLEMENTAL SCALE SQ SCH ×4 (08:00→21:44)
[2017-06-24] MEDS: INSULIN DETEMIR 100 UNITS/ML VIAL SQ SCH ×2 (09:00→21:44)
[2017-06-24] MEDS: SODIUM CHLORIDE 0.9% FLUSH 10 ML FLUSH IV FLUSH SCH ×2 (09:00→21:46)
[2017-06-24] MEDS: DIGOXIN 0.125 MG TAB PO SCH (09:18)
[2017-06-24] MEDS: FUROSEMIDE 40 MG TAB PO SCH (09:19)
[2017-06-24] MEDS: ASPIRIN 81 MG CHEW TAB PO SCH (09:21)
[2017-06-24] MEDS: METOPROLOL SUCCINATE 50 MG EXTENDED RELEASE TAB PO SCH (09:22)
--- NOTE | 2017-06-24 12:47 | HHI.PR ---
Subjective Remarks Chest pain almost gone very minimum as per the patient, pressure-like about 2 out of 10 No nausea or vomiting short of breath Objective Vitals Vital Signs Date Time Temp Pulse Resp B/P (MAP) Pulse Ox O2 Delivery O2 Flow Rate FiO2 06/24/17 09:30 Room Air 06/24/17 09:00 66 06/24/17 05:20 Room Air 06/24/17 05:20 97.6 65 18 99/57 (71) 96 06/24/17 04:02 74 06/24/17 01:25 Room Air 06/24/17 01:25 67 20 153/73 (99) 95 06/24/17 00:25 97.2 61 18 118/64 (82) 97 06/24/17 00:25 Room Air 06/23/17 23:44 71 06/23/17 21:10 97.2 73 18 129/71 (90) 97 06/23/17 21:10 Room Air 06/23/17 20:33 73 06/23/17 19:47 62 06/23/17 17:00 06/23/17 16:30 97.1 60 21 105/58 (74) 94 06/23/17 14:00 75 20 158/100 (119) 100 I/O 06/23/17 06/23/17 06/23/17 06/24/17 06/24/17 06/24/17 07:00 15:00 23:00 07:00 15:00 23:00 Intake Total 480 ml Output Total 200 ml Balance 280 ml Intake Oral 480 ml Output Urine Total 200 ml # Bowel Movements 0 Result Diagram: 06/24/17 0326 06/24/17 0326 Objective Remarks GENERAL: 66 years old male resting in bed comfortably no acute distress NECK: 2+ carotid upstrokes. No bruits. LUNGS: Fair air entry no wheezing HEART: Regular with no murmur, gallop or rub. ABDOMEN: Soft. Tender nondistended, positive BS. EXTREMITIES: With mild edema, is status post left BKA. Diminished distal pulses. NEUROLOGIC: AAO 3 oriented. No focal deficit A/P Problem List: (1) Non-ST elevation [place] (NSTEMI) ICD Code: I21.4 - Non-ST elevation (NSTEMI) myocardial infarction Status: Acute Assessment and Plan 06/24: Continue aggressive risk stratification, appreciate cardiology input, creatinine increased from 1. 4- 1.59, continue monitor BUN over creatinine, avoid nephrotoxin, plan for heart catheter on Tuesday to continue monitoring INR start heparin drip once normalized A/P: 66 years old man with 1. NSTEMI Start nitroglycerin paste, aspirin Hold on heparin drip secondary to elevated APTT Resume home Statin, Metoprolol Consult cardiology for evaluation for left heart catheterization 2-D echo 2. CHF: Chronic. Systolic. Echo 09/07/13 w/ EF 30-35%, s/p AICD No evidence of fluid overload. BNP mildly elevated @230, CXR w/ no acute findings, images reviewed by me Resume outpatient medications 3. Supra Therapeutic INR Treat with Vit K 5mg PO x 1 4. Leukocytosis: WBC 13.3, CXR w/ no acute findings, images reviewed by me.Check UA and repeat labs in am. 5. A-fib: Chronic. Resume home Digoxin/Metoprolol. INR supra therapeutic, Hold Coumadin. 6. Chronic Pain syndrome: Resume home Morphine PO 7. DM: Sliding scale w/ Accu-Cheks, resume home Insulin 8. Tobacco Abuse: Ativan prn, no NicoDerm to avoid vasoconstriction. 9. DVT Prophylaxis: Heparin Sreedhar Saldivar MD Jun 24, 2017 12:47
--- NOTE | 2017-06-24 16:40 | PD.CARD.PN ---
Subjective Subjective Remarks Denies CP or SOB, troponin increased, c/w recent NSTEMI Objective Medications Current Medications Medications (Trade) Dose Ordered Sig/Kelly Route Start Time Stop Time Status Last Admin (Lopressor Inj) 5 mg Q5M PRN IV PUSH 06/23/17 09:30 (Heparin Inj) 5,000 units UNSCH PRN IV PUSH 06/23/17 15:45 (Heparin Inj) 2,500 units UNSCH PRN IV PUSH 06/23/17 15:45 Heparin Sodium/ Dextrose 250 ml @ 10 mls/hr TITRATE PRN IV 06/23/17 09:45 (NS Flush) 2 ml UNSCH PRN IV FLUSH 06/23/17 11:15 (NS Flush) 2 ml BID IV FLUSH 06/23/17 21:00 06/24/17 09:00 (Tylenol) 650 mg Q4H PRN PO 06/23/17 11:15 (Zofran Inj) 4 mg Q6H PRN IVP 06/23/17 11:15 (Tylenol) 650 mg Q6H PRN PO 06/23/17 11:15 (Narcan Inj) 0.4 mg UNSCH PRN IV PUSH 06/23/17 11:15 (Milk Of Magnesia Liq) 30 ml Q12H PRN PO 06/23/17 11:15 (Duoneb Neb) 1 ampule Q2HR NEB PRN NEB 06/23/17 11:15 (D50w (Vial) Inj) 50 ml UNSCH PRN IV PUSH 06/23/17 11:15 (Glucagon Inj) 1 mg UNSCH PRN OTHER 06/23/17 11:15 (NovoLOG SUPPLEMENTAL SCALE) 1 ACHS SLIDING SCALE SQ 06/23/17 12:00 06/24/17 13:48 (Aspirin Chew) 162 mg DAILY PO 06/24/17 09:00 06/24/17 09:21 (Nitroglycerin 2% Oint) 1 inch Q6HR TOP 06/23/17 12:00 06/24/17 12:38 (Apresoline Inj) 20 mg Q4H PRN IV PUSH 06/23/17 11:15 (Lipitor) 80 mg HS PO 06/23/17 21:00 06/23/17 21:06 (Lanoxin) 0.125 mg DAILY PO 06/24/17 09:00 06/24/17 09:18 (Lasix) 40 mg DAILY PO 06/24/17 09:00 06/24/17 09:19 (Levemir Inj) 32 units Q12HR SQ 06/23/17 21:00 (Imdur) 30 mg DAILY@0700 PO 06/24/17 07:00 06/24/17 06:35 (Toprol Xl) 25 mg DAILY PO 06/24/17 09:00 06/24/17 09:22 (Msir) 15 mg 5 TIMES A DAY PO 06/23/17 18:00 06/24/17 15:24 Vital Signs / I&O Vital Signs Date Time Temp Pulse Resp B/P (MAP) Pulse Ox O2 Delivery O2 Flow Rate FiO2 06/24/17 14:50 60 06/24/17 12:00 97.3 63 20 125/70 (88) 98 06/24/17 09:30 Room Air 06/24/17 09:00 66 06/24/17 08:00 97.6 64 20 120/57 (78) 98 06/24/17 05:20 Room Air 06/24/17 05:20 97.6 65 18 99/57 (71) 96 06/24/17 04:02 74 06/24/17 01:25 Room Air 06/24/17 01:25 67 20 153/73 (99) 95 06/24/17 00:25 97.2 61 18 118/64 (82) 97 06/24/17 00:25 Room Air 06/23/17 23:44 71 06/23/17 21:10 97.2 73 18 129/71 (90) 97 06/23/17 21:10 Room Air 06/23/17 20:33 73 06/23/17 19:47 62 06/23/17 17:00 I/O 06/23/17 06/23/17 06/23/17 06/24/17 06/24/17 06/24/17 07:00 15:00 23:00 07:00 15:00 23:00 Intake Total 480 ml Output Total 200 ml Balance 280 ml Intake Oral 480 ml Output Urine Total 200 ml # Bowel Movements 0 Physical Exam GENERAL: In NAD SKIN: Warm and dry. HEAD: Normocephalic. EYES: No scleral icterus. No injection or drainage. NECK: Supple, trachea midline. No JVD or lymphadenopathy. CARDIOVASCULAR: Irregular rate and rhythm, without murmurs, gallops, or rubs. RESPIRATORY: Breath sounds equal bilaterally. No accessory muscle use. GASTROINTESTINAL: Abdomen soft, non-tender, nondistended. MUSCULOSKELETAL: No cyanosis, mild LE edema. S/p bilat LE amputations Laboratory Laboratory Tests Test 06/23/17 19:54 06/23/17 19:59 06/23/17 23:25 06/24/17 03:26 Activated Partial Thromboplast Time 60.8 SEC Total Creatine Kinase 826 U/L 561 U/L Creatine Kinase MB 69.6 NG/ML 41.2 NG/ML Creatine Kinase MB % 8.4 % 7.3 % Troponin I GREATER THAN 40.00 NG/ML GREATER THAN 40.00 NG/ML Urine Color YELLOW Urine Turbidity CLEAR Urine pH 6.5 Urine Specific [place] 1.015 Urine Protein 300 mg/dL Urine Glucose (UA) 300 mg/dL Urine Ketones NEG mg/dL Urine Occult Blood MOD Urine Nitrite NEG Urine Bilirubin NEG Urine Urobilinogen LESS THAN 2.0 MG/DL Urine Leukocyte Esterase NEG Urine RBC 8 /hpf Urine WBC 2 /hpf Urine Squamous Epithelial Cells <1 /hpf Urine Hyaline Casts 3 /lpf Microscopic Urinalysis Comment CULT NOT INDICATED White Blood Count 13.1 TH/MM3 Red Blood Count 4.24 MIL/MM3 Hemoglobin 13.4 GM/DL Hematocrit 39.0 % Mean Corpuscular Volume 92.0 FL Mean Corpuscular Hemoglobin 31.6 PG Mean Corpuscular Hemoglobin Concent 34.4 % Red Cell Distribution Width 15.6 % Platelet Count 189 TH/MM3 Mean Platelet Volume 8.1 FL Neutrophils (%) (Auto) 71.8 % Lymphocytes (%) (Auto) 15.2 % Monocytes (%) (Auto) 9.5 % Eosinophils (%) (Auto) 2.4 % Basophils (%) (Auto) 1.1 % Neutrophils # (Auto) 9.4 TH/MM3 Lymphocytes # (Auto) 2.0 TH/MM3 Monocytes # (Auto) 1.3 TH/MM3 Eosinophils # (Auto) 0.3 TH/MM3 Basophils # (Auto) 0.1 TH/MM3 CBC Comment DIFF FINAL Differential Comment Prothrombin Time 59.7 SEC Prothromb Time International Ratio 6.0 RATIO Blood Urea Nitrogen 25 MG/DL Creatinine 1.59 MG/DL Random Glucose 159 MG/DL Total Protein 7.7 GM/DL Albumin 2.9 GM/DL Calcium Level 9.0 MG/DL Alkaline Phosphatase 86 U/L Aspartate Amino Transf (AST/SGOT) 161 U/L Alanine Aminotransferase (ALT/SGPT) 34 U/L Total Bilirubin 0.7 MG/DL Sodium Level 132 MEQ/L Potassium Level 4.4 MEQ/L Chloride Level 99 MEQ/L Carbon Dioxide Level 28.3 MEQ/L Anion Gap 5 MEQ/L Estimat Glomerular Filtration Rate 44 ML/MIN Assessment and Plan Problem List: (1) Non-ST elevation [place] (NSTEMI) ICD Codes: I21.4 - Non-ST elevation (NSTEMI) myocardial infarction Status: Acute (2) CAD (coronary artery disease) ICD Codes: I25.10 - Atherosclerotic heart disease of [place] coronary artery without angina pectoris (3) Cardiomyopathy ICD Codes: I42.9 - Cardiomyopathy, unspecified (4) Chronic atrial fibrillation ICD Codes: I48.2 - Chronic atrial fibrillation Status: Chronic (5) Abdominal aneurysm ICD Codes: I71.4 - Abdominal aortic aneurysm Status: Acute (6) Status post below knee amputation of left lower extremity ICD Codes: Z89.512 - Acquired absence of left leg below knee Status: Acute (7) CKD (chronic kidney disease) stage 3, GFR 30-59 ml/min ICD Codes: N18.3 - Chronic kidney disease, stage 3 (moderate) Status: Chronic (8) CHF (congestive heart failure) ICD Codes: I50.9 - Heart failure, unspecified Status: Chronic (9) DM (diabetes mellitus) ICD Codes: E11.9 - Type 2 diabetes mellitus without complications Status: Chronic (10) Chronic hepatitis C without mention of hepatic coma ICD Codes: B18.2 - Chronic hepatitis C virus infection Status: Acute Assessment and Plan No angina or CHF symptoms. Troponin elevated, c/w NSTEMI. Renal insufficiency. INR 6.0, start heparin IV once normalized. Continue aggressive risk factor modification. Cath/PCI on Tue. Nancy Rodriguez MD Jun 24, 2017 16:40
--- NOTE | 2017-06-24 19:52 | ECHRPT ---
Indication: CHEST PAIN CONCLUSIONS Normal left ventricular size. Wall thickness is normal. The left ventricular systolic function is mildly reduced with an estimated ejection fraction in the range of 45- 50%. Regional wall motion assessment is suboptimal; possible small area of distal septal and apica l akinesis. The right atrial size is mildly dilated. Mild mitral valve regurgitation. Structurally normal tricuspid valve. There is trace tricuspid valve regurgitation. BP: 181 / 86 HR: 81 Rhythm: MEASUREMENTS (Male / Female) Normal Values Technical Quality:Fair 2D ECHO LV Diastolic Diameter PLAX 4.2 cm 4.2 - 5.9 / 3.9 - 5.3 cm LV Systolic Diameter PLAX 3.4 cm IVS Diastolic Thickness 1.1 cm 0.6 - 1.0 / 0.6 - 0.9 cm LVPW Diastolic Thickness 0.8 cm 0.6 - 1.0 / 0.6 - 0.9 cm LV Relative Wall Thickness 0.5 RV Internal Dim ED PLAX 3.3 cm LA Systolic Diameter LX 4.3 cm 3.0 - 4.0 / 2.7 - 3.8 cm M-MODE Aortic Root Diameter MM 3.5 cm AV Cusp Separation MM 2.0 cm DOPPLER Mitral E Point Velocity 95.0 cm/s Mitral A Point Velocity 42.6 cm/s Mitral E to A Ratio 2.2 TR Peak Velocity 311.0 cm/s TR Peak Gradient 38.7 mmHg FINDINGS LEFT VENTRICLE Normal left ventricular size. Wall thickness is normal. The left ventricular systolic function is mildly reduced with an estimated ejection fraction in the range of 45- 50%. Regional wall motion assessment is suboptimal; possible small area of distal septal and apica l akinesis. RIGHT VENTRICLE Normal right ventricular size and systolic function. LEFT ATRIUM The left atrial size is normal. RIGHT ATRIUM The right atrial size is mildly dilated. ATRIAL SEPTUM Normal atrial septal thickness without atrial level shunting by limited color doppler interrogation. AORTA The aortic root and proximal ascending aorta are normal in size on limited imaging. MITRAL VALVE Mild mitral valve regurgitation. AORTIC VALVE Trileaflet aortic valve. No aortic valve stenosis or regurgitation. TRICUSPID VALVE Structurally normal tricuspid valve. There is trace tricuspid valve regurgitation. PULMONARY VALVE The pulmonary valve is not well visualized. VESSELS The inferior vena cava is normal in size. PERICARDIUM No pericardial effusion. Brice Ferguson MD (Electronically Signed) Final Date:24 June 2017 19:51
[2017-06-24] MEDS: ATORVASTATIN 80 MG TAB PO SCH (21:44)
[2017-06-25] VITALS (11 sets, daily range): BP systolic 112–144; BP diastolic 62–82; PULSE 58–74; RESP 18; TEMP 97.4–98.2; O2SAT 96–98
[2017-06-25] MEDS: NITROGLYCERIN 2% OINT 1 GM PACKET TOP SCH ×4 (06:38→23:27)
[2017-06-25] MEDS: ISOSORBIDE MONONITRATE 30 MG TAB PO SCH (06:38)
[2017-06-25] MEDS: MORPHINE SULFATE 15 MG TAB PO SCH ×5 (06:39→21:30)
[2017-06-25] MEDS: METOPROLOL SUCCINATE 50 MG EXTENDED RELEASE TAB PO SCH (09:00)
[2017-06-25] MEDS: DIGOXIN 0.125 MG TAB PO SCH (10:14)
[2017-06-25] MEDS: ASPIRIN 81 MG CHEW TAB PO SCH (10:15)
[2017-06-25] MEDS: SODIUM CHLORIDE 0.9% FLUSH 10 ML FLUSH IV FLUSH SCH ×2 (10:15→21:31)
[2017-06-25] MEDS: FUROSEMIDE 40 MG TAB PO SCH (10:15)
[2017-06-25] MEDS: INSULIN ASPART SUPPLEMENTAL SCALE SQ SCH ×4 (10:16→21:31)
[2017-06-25] MEDS: INSULIN DETEMIR 100 UNITS/ML VIAL SQ SCH ×2 (10:16→21:31)
[2017-06-25 10:42] LABS: INTERNATIONAL NORMALIZED RATIO 1.7 RATIO; PROTHROMBIN TIME - PATIENT 16.9 SEC (9.8-11.6)
[2017-06-25] MEDS: HEPARIN-D5W 25,000 U/250 ML 250 ML IV PRN (14:19)
--- NOTE | 2017-06-25 15:56 | PD.CARD.PN ---
Subjective Subjective Remarks The patient SOB, CP, or palpitations. Feels "different" since heparin started. Cannot provide more detailed explanation. (Laura Ragsdale) Objective Medications Current Medications Medications (Trade) Dose Ordered Sig/Kelly Route Start Time Stop Time Status Last Admin (Lopressor Inj) 5 mg Q5M PRN IV PUSH 06/23/17 09:30 (Heparin Inj) 5,000 units UNSCH PRN IV PUSH 06/23/17 15:45 (Heparin Inj) 2,500 units UNSCH PRN IV PUSH 06/23/17 15:45 Heparin Sodium/ Dextrose 250 ml @ 10 mls/hr TITRATE PRN IV 06/23/17 09:45 06/25/17 14:19 (NS Flush) 2 ml UNSCH PRN IV FLUSH 06/23/17 11:15 (NS Flush) 2 ml BID IV FLUSH 06/23/17 21:00 06/25/17 10:15 (Tylenol) 650 mg Q4H PRN PO 06/23/17 11:15 (Zofran Inj) 4 mg Q6H PRN IVP 06/23/17 11:15 (Tylenol) 650 mg Q6H PRN PO 06/23/17 11:15 (Narcan Inj) 0.4 mg UNSCH PRN IV PUSH 06/23/17 11:15 (Milk Of Magnesia Liq) 30 ml Q12H PRN PO 06/23/17 11:15 (Duoneb Neb) 1 ampule Q2HR NEB PRN NEB 06/23/17 11:15 (D50w (Vial) Inj) 50 ml UNSCH PRN IV PUSH 06/23/17 11:15 (Glucagon Inj) 1 mg UNSCH PRN OTHER 06/23/17 11:15 (NovoLOG SUPPLEMENTAL SCALE) 1 ACHS SLIDING SCALE SQ 06/23/17 12:00 06/25/17 12:50 (Aspirin Chew) 162 mg DAILY PO 06/24/17 09:00 06/25/17 10:15 (Nitroglycerin 2% Oint) 1 inch Q6HR TOP 06/23/17 12:00 06/25/17 12:50 (Apresoline Inj) 20 mg Q4H PRN IV PUSH 06/23/17 11:15 (Lipitor) 80 mg HS PO 06/23/17 21:00 06/24/17 21:44 (Lanoxin) 0.125 mg DAILY PO 06/24/17 09:00 06/25/17 10:14 (Lasix) 40 mg DAILY PO 06/24/17 09:00 06/25/17 10:15 (Levemir Inj) 32 units Q12HR SQ 06/23/17 21:00 06/25/17 10:16 (Imdur) 30 mg DAILY@0700 PO 06/24/17 07:00 06/25/17 06:38 (Toprol Xl) 25 mg DAILY PO 06/24/17 09:00 06/25/17 09:00 (Msir) 15 mg 5 TIMES A DAY PO 06/23/17 18:00 06/25/17 14:27 Vital Signs / I&O Vital Signs Date Time Temp Pulse Resp B/P (MAP) Pulse Ox O2 Delivery O2 Flow Rate FiO2 06/25/17 12:00 97.6 66 18 121/70 (87) 96 06/25/17 08:15 Room Air 06/25/17 08:09 61 06/25/17 08:00 97.4 60 18 139/72 (94) 96 06/25/17 04:40 97.6 74 18 112/62 (79) 96 06/25/17 04:00 69 06/25/17 00:00 69 06/24/17 23:46 97.6 61 18 100/57 (71) 97 06/24/17 20:50 97.5 64 18 127/85 (99) 98 06/24/17 20:15 96 Room Air 06/24/17 20:00 61 06/24/17 19:22 55 06/24/17 16:00 97.8 62 20 119/64 (82) 97 I/O 06/24/17 06/24/17 06/24/17 06/25/17 06/25/17 06/25/17 06:59 14:59 22:59 06:59 14:59 22:59 Intake Total 480 ml 720 ml 360 ml Output Total 200 ml 475 ml 600 ml Balance 280 ml 245 ml -240 ml Intake Oral 480 ml 720 ml 360 ml Output Urine Total 200 ml 475 ml 600 ml # Bowel Movements 0 0 0 Physical Exam GENERAL: Middle aged male, NAD, in 1420 SKIN: Warm and dry. HEAD: Normocephalic. EYES: No scleral icterus. No injection or drainage. NECK: Supple, trachea midline. CARDIOVASCULAR: Irreg irreg, no murmur, ICD RESPIRATORY: Breath sounds equal bilaterally. No accessory muscle use. GASTROINTESTINAL: Abdomen soft, non-tender, nondistended. MUSCULOSKELETAL: Left BKA, Right transmetatarsal BACK: Nontender without obvious deformity. Laboratory Laboratory Tests Test 06/25/17 09:36 Prothrombin Time 16.9 SEC Prothromb Time International Ratio 1.7 RATIO Imaging Last 72 hours Impressions Chest X-Ray 06/23/17 0846 Signed Impressions: Service Date/Time: , June 23, 2017 09:04 - CONCLUSION: Normal examination. Left subclavian pacemaker in good position. John Elizalde MD (Laura Ragsdale) Assessment and Plan Problem List: (1) Non-ST elevation ID (NSTEMI) ICD Codes: I21.4 - Non-ST elevation (NSTEMI) myocardial infarction Status: Acute (2) CAD (coronary artery disease) ICD Codes: I25.10 - Atherosclerotic heart disease of [place] coronary artery without angina pectoris (3) Cardiomyopathy ICD Codes: I42.9 - Cardiomyopathy, unspecified (4) Chronic atrial fibrillation ICD Codes: I48.2 - Chronic atrial fibrillation Status: Chronic (5) Abdominal aneurysm ICD Codes: I71.4 - Abdominal aortic aneurysm Status: Acute (6) Status post below knee amputation of left lower extremity ICD Codes: Z89.512 - Acquired absence of left leg below knee Status: Acute (7) CKD (chronic kidney disease) stage 3, GFR 30-59 ml/min ICD Codes: N18.3 - Chronic kidney disease, stage 3 (moderate) Status: Chronic (8) CHF (congestive heart failure) ICD Codes: I50.9 - Heart failure, unspecified Status: Chronic (9) DM (diabetes mellitus) ICD Codes: E11.9 - Type 2 diabetes mellitus without complications Status: Chronic (10) Chronic hepatitis C without mention of hepatic coma ICD Codes: B18.2 - Chronic hepatitis C virus infection Status: Acute Assessment and Plan INR 1.7 today, heparin started On BB and statin. Consult nephrology for assistance with renal management for cardiac cath Consult Dr Gregorio for wound management. The patient was seen and evaluated by Dr Jamidar who completed face to face encounter and physical exam and participated in evaluation and management. (Laura Ragsdale) Assessment and Plan The exam, history, and the medical decision-making described in the above note were completed with the assistance of the mid-level provider. I reviewed and agree with the findings presented. I attest that I had a [id number] encounter with the patient on the same day, and personally performed and documented my assessment and findings in the medical record. For cath Tuesday, elevated troponin will cover with heparin. (Sarah Vargas MD) Laura Ragsdale Jun 25, 2017 15:56 Sarah Vargas MD Jun 25, 2017 17:29
--- NOTE | 2017-06-25 17:29 | HHI.PR ---
Subjective Remarks patient reported no chest pain, no short of breath INR today still pending, plan for her On Tuesday Objective Vitals Vital Signs Date Time Temp Pulse Resp B/P (MAP) Pulse Ox O2 Delivery O2 Flow Rate FiO2 06/25/17 12:00 97.6 66 18 121/70 (87) 96 06/25/17 08:15 Room Air 06/25/17 08:09 61 06/25/17 08:00 97.4 60 18 139/72 (94) 96 06/25/17 04:40 97.6 74 18 112/62 (79) 96 06/25/17 04:00 69 06/25/17 00:00 69 06/24/17 23:46 97.6 61 18 100/57 (71) 97 06/24/17 20:50 97.5 64 18 127/85 (99) 98 06/24/17 20:15 96 Room Air 06/24/17 20:00 61 06/24/17 19:22 55 I/O 06/24/17 06/24/17 06/24/17 06/25/17 06/25/17 06/25/17 07:00 15:00 23:00 07:00 15:00 23:00 Intake Total 480 ml 720 ml 360 ml Output Total 200 ml 475 ml 600 ml Balance 280 ml 245 ml -240 ml Intake Oral 480 ml 720 ml 360 ml Output Urine Total 200 ml 475 ml 600 ml # Bowel Movements 0 0 0 Result Diagram: 06/24/17 0326 06/24/17 0326 Objective Remarks GENERAL: 66 years old male resting in bed comfortably no acute distress NECK: 2+ carotid upstrokes. No bruits. LUNGS: Fair air entry no wheezing HEART: Regular with no murmur, gallop or rub. ABDOMEN: Soft. Tender nondistended, positive BS. EXTREMITIES: With mild edema, is status post left BKA. Diminished distal pulses. NEUROLOGIC: AAO 3 oriented. No focal deficit A/P Problem List: (1) Non-ST elevation [place] (NSTEMI) ICD Code: I21.4 - Non-ST elevation (NSTEMI) myocardial infarction Status: Acute Assessment and Plan 06/24: Continue aggressive risk stratification, appreciate cardiology input, creatinine increased from 1. 4- 1.59, continue monitor BUN over creatinine, avoid nephrotoxin, plan for heart catheter on Tuesday to continue monitoring INR start heparin drip once normalized 06/25: Continue current care with risk stratification, INR came back 1.7 we'll start heparin drip per protocol for CA, plan for heart catheter on Tuesday A/P: 66 years old man with 1. NSTEMI Start nitroglycerin paste, aspirin Hold on heparin drip secondary to elevated APTT Resume home Statin, Metoprolol Consult cardiology for evaluation for left heart catheterization 2-D echo 2. CHF: Chronic. Systolic. Echo 09/07/13 w/ EF 30-35%, s/p AICD No evidence of fluid overload. BNP mildly elevated @230, CXR w/ no acute findings, images reviewed by me Resume outpatient medications 3. Supra Therapeutic INR Treat with Vit K 5mg PO x 1 4. Leukocytosis: WBC 13.3, CXR w/ no acute findings, images reviewed by me.Check UA and repeat labs in am. 5. A-fib: Chronic. Resume home Digoxin/Metoprolol. INR supra therapeutic, Hold Coumadin. 6. Chronic Pain syndrome: Resume home Morphine PO 7. DM: Sliding scale w/ Accu-Cheks, resume home Insulin 8. Tobacco Abuse: Ativan prn, no NicoDerm to avoid vasoconstriction. 9. DVT Prophylaxis: Heparin Sreedhar Saldivar MD Jun 25, 2017 17:29
[2017-06-25] MEDS: ATORVASTATIN 80 MG TAB PO SCH (21:30)
[2017-06-26] VITALS (8 sets, daily range): BP systolic 108–142; BP diastolic 57–79; PULSE 60–67; RESP 16–20; TEMP 97.6–98.7; O2SAT 97–99
[2017-06-26] MEDS: MORPHINE SULFATE 15 MG TAB PO SCH ×5 (05:24→21:54)
[2017-06-26] MEDS: NITROGLYCERIN 2% OINT 1 GM PACKET TOP SCH ×4 (05:24→23:06)
[2017-06-26 06:48] LABS: HEMATOCRIT 36.7 % (39.0-51.0); HEMOGLOBIN 12.8 GM/DL (13.0-17.0); MEAN CELL VOLUME 91.9 FL (80.0-100.0); MEAN CORPUSCULAR HEMOGLOBIN 32.1 PG (27.0-34.0); MEAN CORPUSCULAR HGB CONC 34.9 % (32.0-36.0); MEAN PLATELET VOLUME 8.5 FL (7.0-11.0); PLATELET COUNT 186 TH/MM3 (150-450); RED BLOOD COUNT 3.99 MIL/MM3 (4.50-5.90); RED CELL DISTRIBUTION WIDTH 15.7 % (11.6-17.2); WHITE BLOOD COUNT 10.1 TH/MM3 (4.0-11.0)
[2017-06-26] MEDS: INSULIN ASPART SUPPLEMENTAL SCALE SQ SCH ×4 (08:00→21:00)
--- NOTE | 2017-06-26 09:07 | PD.CONS ---
[facility] Service Nephrology service Consult Requested By Laura MITCHELL Reason for Consult CKD with heart cath tomorrow Primary Care Physician Di Dutton D.O. History of Present Illness Patient is a 66-year-old male with a PMH of HTN, A. fib on Coumadin, CHF (Echo w/ EF 30-35%), PVD, h/o Left BKA, AICD, Hepatitis C, Cirrhosis, DM, Chronic Back Pain, CKD, and Tobacco Abuse who presented to the emergency department with complaint of an acute onset of substernal chest pain. Patient is not followed by [facility] outpatient but has been told for the last 4 years that he has had CKD with a creatinine of 1.59, and GFR 44 today. He is currently on heparin gtt for a NSTMI and heart cath is planned for tomorrow. (Corinne Vizcaino) Review of Systems Constitutional: COMPLAINS OF: Fatigue, DENIES: Fever, Chills Respiratory: COMPLAINS OF: Shortness of breath Cardiovascular: COMPLAINS OF: Chest pain Genitourinary: DENIES: Urinary frequency, Urgency, Hematuria, Dysuria Musculoskeletal: COMPLAINS OF: Back pain Integumentary: COMPLAINS OF: Pruritus (Corinne Vizcaino) Past Family Social History Allergies: Coded Allergies: Sulfa (Sulfonamide Antibiotics) (Verified Allergy, Severe, Itching, Elevated Blood Pressure, SOB, 06/23/17) sulfamethoxazole (Verified Allergy, Severe, Elevated blood pressure, Generalized itching, 06/23/17) trimethoprim (Verified Allergy, Severe, Elevated blood pressure, Generalized itching, 06/23/17) MRI PRECAUTION (Verified Adverse Reaction, Severe, PACEMAKER KD NOT REVO, 06/23/17) Past Medical History HTN, A. fib on Coumadin, CHF (Echo 09/17/13 w/ EF 30-35%), PVD, h/o Left BKA, AICD, Hepatitis C, Cirrhosis, DM, CKD, Chronic Back Pain and Tobacco Abuse Past Surgical History Tonsillectomy AAA Repair, CEA, AICD, Liver Biopsy, Left BKA, Right Toe Amputations Active Ordered Medications Current Medications Medications (Trade) Dose Ordered Sig/Kelly Route Start Time Stop Time Status Last Admin (Lopressor Inj) 5 mg Q5M PRN IV PUSH 1/18/18 09:30 (Heparin Inj) 5,000 units UNSCH PRN IV PUSH 06/23/17 15:45 (Heparin Inj) 2,500 units UNSCH PRN IV PUSH 06/23/17 15:45 Heparin Sodium/ Dextrose 250 ml @ 10 mls/hr TITRATE PRN IV 06/23/17 09:45 06/25/17 14:19 (NS Flush) 2 ml UNSCH PRN IV FLUSH 06/23/17 11:15 (NS Flush) 2 ml BID IV FLUSH 06/23/17 21:00 06/25/17 21:31 (Tylenol) 650 mg Q4H PRN PO 06/23/17 11:15 (Zofran Inj) 4 mg Q6H PRN IVP 06/23/17 11:15 (Tylenol) 650 mg Q6H PRN PO 06/23/17 11:15 (Narcan Inj) 0.4 mg UNSCH PRN IV PUSH 06/23/17 11:15 (Milk Of Magngypsy Liq) 30 ml Q12H PRN PO 06/23/17 11:15 (Duoneb Neb) 1 ampule Q2HR NEB PRN NEB 06/23/17 11:15 (D50w (Vial) Inj) 50 ml UNSCH PRN IV PUSH 06/23/17 11:15 (Glucagon Inj) 1 mg UNSCH PRN OTHER 06/23/17 11:15 (NovoLOG SUPPLEMENTAL SCALE) 1 ACHS SLIDING SCALE SQ 06/23/17 12:00 06/25/17 21:31 (Aspirin Chew) 162 mg DAILY PO 06/24/17 09:00 06/25/17 10:15 (Nitroglycerin 2% Oint) 1 inch Q6HR TOP 06/23/17 12:00 06/26/17 05:24 (Apresoline Inj) 20 mg Q4H PRN IV PUSH 06/23/17 11:15 (Lipitor) 80 mg HS PO 06/23/17 21:00 06/25/17 21:30 (Lanoxin) 0.125 mg DAILY PO 06/24/17 09:00 06/25/17 10:14 (Lasix) 40 mg DAILY PO 06/24/17 09:00 06/25/17 10:15 (Levemir Inj) 32 units Q12HR SQ 06/23/17 21:00 06/25/17 21:31 (Imdur) 30 mg DAILY@0700 PO 06/24/17 07:00 06/25/17 06:38 (Toprol Xl) 25 mg DAILY PO 06/24/17 09:00 06/25/17 09:00 (Msir) 15 mg 5 TIMES A DAY PO 06/23/17 18:00 06/26/17 05:24 Family History Mother from breast cancer, had CAD and diabetes father from Heart disease Social History Smokes 1/2 to 1 pk of cigarettes per day History of alcoholism Lives alone and disabled (Corinne Vizcaino) Physical Exam Vital Signs Vital Signs Date Time Temp Pulse Resp B/P (MAP) Pulse Ox O2 Delivery O2 Flow Rate FiO2 06/26/17 04:00 Room Air 06/26/17 04:00 97.6 60 18 109/61 (77) 99 06/26/17 03:58 60 06/26/17 00:00 Room Air 06/26/17 00:00 97.8 63 18 119/76 (90) 97 06/25/17 20:00 98.2 58 18 116/62 (80) 98 06/25/17 20:00 Room Air 06/25/17 19:59 61 06/25/17 17:00 97.7 67 18 144/82 (102) 97 06/25/17 16:26 70 06/25/17 12:04 66 06/25/17 12:00 97.6 66 18 121/70 (87) 96 Physical Exam GENERAL: This is a well-nourished, well-developed patient, in no apparent distress. SKIN: Cool and dry. Discoloration of lower extremities HEAD: Atraumatic. Normocephalic. No temporal or scalp tenderness. EYES: Pupils equal round and reactive. Extraocular motions intact. No scleral icterus. No injection or drainage. ENT: Nose without bleeding, purulent drainage or septal hematoma. Throat without erythema, tonsillar hypertrophy or exudate. Uvula midline. Airway patent. NECK: Trachea midline. No JVD or lymphadenopathy. Supple, nontender, no meningeal signs. CARDIOVASCULAR: Regular rate and rhythm without murmurs, gallops, or rubs. RESPIRATORY: Breath sounds diminished equal bilaterally. No wheezes, rales, or rhonchi. GASTROINTESTINAL: Abdomen soft, non-tender, nondistended. No hepato-splenomegaly , or palpable masses. No guarding. MUSCULOSKELETAL: Extremities without clubbing, cyanosis, or edema. Left BKA. Right toes amputation NEUROLOGICAL: Awake and alert. Normal speech. Laboratory Laboratory Tests Test 06/25/17 09:36 06/25/17 22:53 06/26/17 04:37 Prothrombin Time 16.9 Prothromb Time International Ratio 1.7 Activated Partial Thromboplast Time 46.2 49.5 White Blood Count 10.1 Red Blood Count 3.99 Hemoglobin 12.8 Hematocrit 36.7 Mean Corpuscular Volume 91.9 Mean Corpuscular Hemoglobin 32.1 Mean Corpuscular Hemoglobin Concent 34.9 Red Cell Distribution Width 15.7 Platelet Count 186 Mean Platelet Volume 8.5 (Corinne Vizcaino) Result Diagram: 06/26/17 0437 06/24/17 0326 Imaging Last Impressions Chest X-Ray 06/23/17 0846 Signed Impressions: Service Date/Time: June 09:04 - CONCLUSION: Normal examination. Left subclavian pacemaker in good position. John Elizalde MD (Corinne Vizcaino) Assessment and Plan Problem List: (1) Chronic kidney disease (CKD) ICD Codes: N18.9 - Chronic kidney disease, unspecified Plan: Creat at 1.59 and GFR of 44 CKD related to diabetes Potassium WNL Urine with 3 + protein Good urine output Will monitor carefully Plan for heart cath tomorrow on heparin gtt currently. (2) NSTEMI (non-ST elevated myocardial infarction) ICD Codes: I21.4 - Non-ST elevation (NSTEMI) myocardial infarction Plan: Chest pain is improving On heparin gtt and nitro paste BB and statin Heart cath tomororw (3) Chronic hyponatremia ICD Codes: E87.1 - Chronic hyponatremia Status: Acute Plan: Sodium 133 asymptomatic will monitor (4) DM (diabetes mellitus) ICD Codes: E11.9 - Type 2 diabetes mellitus without complications Status: Chronic Plan: BS AC and HS Insulin dependent maintain BS 140mg/dl to 180 mg/dl (Corinne Vizcaino) Problem List: (1) Chronic kidney disease (CKD) ICD Codes: N18.9 - Chronic kidney disease, unspecified Plan: Creat at 1.59 and GFR of 44 CKD related to diabetes Potassium WNL Urine with 3 + protein Good urine output Will monitor carefully Plan for heart cath tomorrow on heparin gtt currently. Patient has stage 3 chronic kidney disease, most likely has Hypertensive, renovascular or Diabetic Nephropathy. Has risk for contrast Nephropathy about 15%. IV Hydration once NPO. (2) NSTEMI (non-ST elevated myocardial infarction) ICD Codes: I21.4 - Non-ST elevation (NSTEMI) myocardial infarction Plan: Chest pain is improving On heparin gtt and nitro paste BB and statin Heart cath tomororw (3) Chronic hyponatremia ICD Codes: E87.1 - Chronic hyponatremia Status: Acute Plan: Sodium 133 asymptomatic will monitor (4) DM (diabetes mellitus) ICD Codes: E11.9 - Type 2 diabetes mellitus without complications Status: Chronic Plan: BS AC and HS Insulin dependent maintain BS 140mg/dl to 180 mg/dl (Jai Godinez MD) Problem Qualifiers (1) Chronic kidney disease (CKD): Qualified Codes: N18.3 - Chronic kidney disease, stage 3 (moderate) Corinne Vizcaino Jun 26, 2017 09:07 Jai Godinez MD Jun 26, 2017 13:07
[2017-06-26] MEDS: ISOSORBIDE MONONITRATE 30 MG TAB PO SCH (09:39)
[2017-06-26] MEDS: SODIUM CHLORIDE 0.9% FLUSH 10 ML FLUSH IV FLUSH SCH ×2 (09:39→21:49)
[2017-06-26] MEDS: FUROSEMIDE 40 MG TAB PO SCH (09:39)
[2017-06-26] MEDS: ASPIRIN 81 MG CHEW TAB PO SCH (09:39)
[2017-06-26] MEDS: METOPROLOL SUCCINATE 50 MG EXTENDED RELEASE TAB PO SCH (09:39)
[2017-06-26] MEDS: DIGOXIN 0.125 MG TAB PO SCH (09:40)
[2017-06-26] MEDS: INSULIN DETEMIR 100 UNITS/ML VIAL SQ SCH ×2 (09:40→21:49)
--- NOTE | 2017-06-26 09:43 | PD.CARD.PN ---
Subjective Subjective Remarks NO chest pain for cath tomorrow. Objective Medications Current Medications Medications (Trade) Dose Ordered Sig/Kelly Route Start Time Stop Time Status Last Admin (Lopressor Inj) 5 mg Q5M PRN IV PUSH 06/23/17 09:30 (Heparin Inj) 5,000 units UNSCH PRN IV PUSH 06/23/17 15:45 (Heparin Inj) 2,500 units UNSCH PRN IV PUSH 06/23/17 15:45 Heparin Sodium/ Dextrose 250 ml @ 10 mls/hr TITRATE PRN IV 06/23/17 09:45 06/25/17 14:19 (NS Flush) 2 ml UNSCH PRN IV FLUSH 06/23/17 11:15 (NS Flush) 2 ml BID IV FLUSH 06/23/17 21:00 06/25/17 21:31 (Tylenol) 650 mg Q4H PRN PO 06/23/17 11:15 (Zofran Inj) 4 mg Q6H PRN IVP 06/23/17 11:15 (Tylenol) 650 mg Q6H PRN PO 06/23/17 11:15 (Narcan Inj) 0.4 mg UNSCH PRN IV PUSH 06/23/17 11:15 (Milk Of Magnesia Liq) 30 ml Q12H PRN PO 06/23/17 11:15 (Duoneb Neb) 1 ampule Q2HR NEB PRN NEB 06/23/17 11:15 (D50w (Vial) Inj) 50 ml UNSCH PRN IV PUSH 06/23/17 11:15 (Glucagon Inj) 1 mg UNSCH PRN OTHER 06/23/17 11:15 (NovoLOG SUPPLEMENTAL SCALE) 1 ACHS SLIDING SCALE SQ 06/23/17 12:00 06/25/17 21:31 (Aspirin Chew) 162 mg DAILY PO 06/24/17 09:00 06/25/17 10:15 (Nitroglycerin 2% Oint) 1 inch Q6HR TOP 06/23/17 12:00 06/26/17 05:24 (Apresoline Inj) 20 mg Q4H PRN IV PUSH 06/23/17 11:15 (Lipitor) 80 mg HS PO 06/23/17 21:00 06/25/17 21:30 (Lanoxin) 0.125 mg DAILY PO 06/24/17 09:00 06/25/17 10:14 (Lasix) 40 mg DAILY PO 06/24/17 09:00 06/25/17 10:15 (Levemir Inj) 32 units Q12HR SQ 06/23/17 21:00 06/25/17 21:31 (Imdur) 30 mg DAILY@0700 PO 06/24/17 07:00 06/25/17 06:38 (Toprol Xl) 25 mg DAILY PO 06/24/17 09:00 06/25/17 09:00 (Msir) 15 mg 5 TIMES A DAY PO 06/23/17 18:00 06/26/17 05:24 Vital Signs / I&O Vital Signs Date Time Temp Pulse Resp B/P (MAP) Pulse Ox O2 Delivery O2 Flow Rate FiO2 06/26/17 04:00 Room Air 06/26/17 04:00 97.6 60 18 109/61 (77) 99 06/26/17 03:58 60 06/26/17 00:00 Room Air 06/26/17 00:00 97.8 63 18 119/76 (90) 97 06/25/17 20:00 98.2 58 18 116/62 (80) 98 06/25/17 20:00 Room Air 06/25/17 19:59 61 06/25/17 17:00 97.7 67 18 144/82 (102) 97 06/25/17 16:26 70 06/25/17 12:04 66 06/25/17 12:00 97.6 66 18 121/70 (87) 96 I/O 06/25/17 06/25/17 06/25/17 06/26/17 06/26/17 06/26/17 07:00 15:00 23:00 07:00 15:00 23:00 Intake Total 360 ml 1200 ml Output Total 600 ml 1000 ml 600 ml Balance -240 ml 200 ml -600 ml Intake Oral 360 ml 1200 ml Output Urine Total 600 ml 1000 ml 600 ml # Bowel Movements 0 Physical Exam Physical Exam GENERAL: Middle aged male, NAD, in 1420 SKIN: Warm and dry. HEAD: Normocephalic. EYES: No scleral icterus. No injection or drainage. NECK: Supple, trachea midline. CARDIOVASCULAR: Irreg irreg, no murmur, ICD RESPIRATORY: Breath sounds equal bilaterally. No accessory muscle use. GASTROINTESTINAL: Abdomen soft, non-tender, nondistended. MUSCULOSKELETAL: Left BKA, Right transmetatarsal BACK: Nontender without obvious deformity. Laboratory Laboratory Tests Test 06/25/17 22:53 06/26/17 04:37 Activated Partial Thromboplast Time 46.2 SEC 49.5 SEC White Blood Count 10.1 TH/MM3 Red Blood Count 3.99 MIL/MM3 Hemoglobin 12.8 GM/DL Hematocrit 36.7 % Mean Corpuscular Volume 91.9 FL Mean Corpuscular Hemoglobin 32.1 PG Mean Corpuscular Hemoglobin Concent 34.9 % Red Cell Distribution Width 15.7 % Platelet Count 186 TH/MM3 Mean Platelet Volume 8.5 FL Assessment and Plan Problem List: (1) Non-ST elevation [place] (NSTEMI) ICD Codes: I21.4 - Non-ST elevation (NSTEMI) myocardial infarction Status: Acute (2) CAD (coronary artery disease) ICD Codes: I25.10 - Atherosclerotic heart disease of [place] coronary artery without angina pectoris (3) Cardiomyopathy ICD Codes: I42.9 - Cardiomyopathy, unspecified (4) Chronic atrial fibrillation ICD Codes: I48.2 - Chronic atrial fibrillation Status: Chronic (5) Abdominal aneurysm ICD Codes: I71.4 - Abdominal aortic aneurysm Status: Acute (6) Status post below knee amputation of left lower extremity ICD Codes: Z89.512 - Acquired absence of left leg below knee Status: Acute (7) CKD (chronic kidney disease) stage 3, GFR 30-59 ml/min ICD Codes: N18.3 - Chronic kidney disease, stage 3 (moderate) Status: Chronic (8) CHF (congestive heart failure) ICD Codes: I50.9 - Heart failure, unspecified Status: Chronic (9) DM (diabetes mellitus) ICD Codes: E11.9 - Type 2 diabetes mellitus without complications Status: Chronic (10) Chronic hepatitis C without mention of hepatic coma ICD Codes: B18.2 - Chronic hepatitis C virus infection Status: Acute Assessment and Plan Overall stable today for Sarah Winters MD Jun 26, 2017 09:43
[2017-06-26] MEDS: HEPARIN-D5W 25,000 U/250 ML 250 ML IV PRN (12:51)
--- NOTE | 2017-06-26 14:49 | HHI.PR ---
Subjective Remarks Stable no acute issue, no chest pain or short of breath at this Point plan to go for heart catheter tomorrow Objective Vitals Vital Signs Date Time Temp Pulse Resp B/P (MAP) Pulse Ox O2 Delivery O2 Flow Rate FiO2 06/26/17 12:00 67 06/26/17 12:00 98.7 60 16 113/62 (79) 98 06/26/17 08:00 97.6 61 18 142/79 (100) 98 06/26/17 08:00 60 06/26/17 04:00 Room Air 06/26/17 04:00 97.6 60 18 109/61 (77) 99 06/26/17 03:58 60 06/26/17 00:00 Room Air 06/26/17 00:00 97.8 63 18 119/76 (90) 97 06/25/17 20:00 98.2 58 18 116/62 (80) 98 06/25/17 20:00 Room Air 06/25/17 19:59 61 06/25/17 17:00 97.7 67 18 144/82 (102) 97 06/25/17 16:26 70 I/O 06/25/17 06/25/17 06/25/17 06/26/17 06/26/17 06/26/17 07:00 15:00 23:00 07:00 15:00 23:00 Intake Total 360 ml 1200 ml Output Total 600 ml 1000 ml 600 ml Balance -240 ml 200 ml -600 ml Intake Oral 360 ml 1200 ml Output Urine Total 600 ml 1000 ml 600 ml # Bowel Movements 0 Result Diagram: 06/26/17 0437 06/24/17 0326 Objective Remarks GENERAL: 66 years old male resting in bed comfortably no acute distress NECK: 2+ carotid upstrokes. No bruits. LUNGS: Fair air entry no wheezing HEART: Regular with no murmur, gallop or rub. ABDOMEN: Soft. Tender nondistended, positive BS. EXTREMITIES: With mild edema, is status post left BKA. Diminished distal pulses. NEUROLOGIC: AAO 3 oriented. No focal deficit A/P Problem List: (1) Non-ST elevation [place] (NSTEMI) ICD Code: I21.4 - Non-ST elevation (NSTEMI) myocardial infarction Status: Acute Assessment and Plan 06/24: Continue aggressive risk stratification, appreciate cardiology input, creatinine increased from 1. 4- 1.59, continue monitor BUN over creatinine, avoid nephrotoxin, plan for heart catheter on Tuesday to continue monitoring INR start heparin drip once normalized 06/25: Continue current care with risk stratification, INR came back 1.7 we'll start heparin drip per protocol for NC, plan for heart catheter on Monday 06/26: Appreciate nephrology consultation, will follow a 4 post heart catheter, plan for in a.m., check BMP in a.m. A/P: 66 years old man with 1. NSTEMI Start nitroglycerin paste, aspirin Hold on heparin drip secondary to elevated APTT Resume home Statin, Metoprolol Consult cardiology for evaluation for left heart catheterization 2-D echo 2. CHF: Chronic. Systolic. Echo 09/07/13 w/ EF 30-35%, s/p AICD No evidence of fluid overload. BNP mildly elevated @230, CXR w/ no acute findings, images reviewed by me Resume outpatient medications 3. Supra Therapeutic INR Treat with Vit K 5mg PO x 1 4. Leukocytosis: WBC 13.3, CXR w/ no acute findings, images reviewed by me.Check UA and repeat labs in am. 5. A-fib: Chronic. Resume home Digoxin/Metoprolol. INR supra therapeutic, Hold Coumadin. 6. Chronic Pain syndrome: Resume home Morphine PO 7. DM: Sliding scale w/ Accu-Cheks, resume home Insulin 8. Tobacco Abuse: Ativan prn, no NicoDerm to avoid vasoconstriction. 9. DVT Prophylaxis: Heparin Sreedhar Saldivar MD Jun 26, 2017 14:49
[2017-06-26] MEDS: ATORVASTATIN 80 MG TAB PO SCH (21:49)
[2017-06-27] VITALS (11 sets, daily range): BP systolic 105–157; BP diastolic 58–88; PULSE 60–79; RESP 18–20; TEMP 97.1–98.8; O2SAT 97–99
[2017-06-27] MEDS: MORPHINE SULFATE 15 MG TAB PO SCH ×3 (06:01→14:00)
[2017-06-27] MEDS: ISOSORBIDE MONONITRATE 30 MG TAB PO SCH (06:01)
[2017-06-27] MEDS: NITROGLYCERIN 2% OINT 1 GM PACKET TOP SCH ×2 (06:01→11:34)
[2017-06-27] MEDS: INSULIN ASPART SUPPLEMENTAL SCALE SQ SCH ×4 (08:00→21:53)
[2017-06-27] MEDS ORDERED: IOHEXOL 350 MG/ML 100 ML BTL (for Cath Lab) OTHER ONE (08:58)
[2017-06-27] MEDS: INSULIN DETEMIR 100 UNITS/ML VIAL SQ SCH ×2 (09:00→21:54)
[2017-06-27] MEDS ORDERED: IOHEXOL 350 MG/ML 50 ML BTL (for Cath Lab) OTHER ONE (09:07)
--- NOTE | 2017-06-27 10:21 | HHI.NPPN ---
Subjective General Problems: Anemia, Heart Disease, Hypertension Renal Failure: Chronic, Stage III History of Present Illness 66-year-old male with a PMH of HTN, A. fib on Coumadin, CHF (Echo 09/17/13 w/ EF 30-35%), PVD, h/o Left BKA, AICD, Hepatitis C, Cirrhosis, DM, Chronic Back Pain , CKD, and Tobacco Abuse who presented to the emergency department with complaint of an acute onset of substernal chest pain. 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 Additional Remarks Patient is alert, sitting on chair, no SOB, now NPO. Objective Data Data Vital Signs Date Time Temp Pulse Resp B/P (MAP) Pulse Ox O2 Delivery O2 Flow Rate FiO2 06/27/17 08:00 97.4 63 20 105/58 (74) 98 06/27/17 04:06 61 06/27/17 04:00 Room Air 06/27/17 04:00 97.5 72 18 127/83 (98) 98 06/27/17 00:16 60 06/27/17 00:00 Room Air 06/27/17 00:00 98.8 63 19 108/66 (80) 97 06/26/17 20:05 66 06/26/17 20:00 98.3 62 20 108/57 (74) 98 06/26/17 20:00 Room Air 06/26/17 16:00 62 06/26/17 16:00 97.8 66 18 115/58 (77) 98 06/26/17 12:00 67 06/26/17 12:00 98.7 60 16 113/62 (79) 98 -: 06/26/17 0437 06/24/17 0326 Physical Exam General Appearance: No Acute Distress, Comfortable Pulmonary Resp Exam: Breath Sounds Equal, No Distress, Rhonchi, Decreased Bases Cardiology CV Exam: Regular, Normal Sinus Rhythm Gastrointestinal/Abdomen GI Exam: Soft, Non-Tender, Bowel Sounds Present, Non-Distended Extremeties Extremities Exam: Trace Edema (Rt. TMA and Left BKA.) Neurologic Neuro Exam: Alert, Awake, Oriented Psychiatric Psych Exam: Appropriate Responses Assessment/Plan Problem List: (1) Chronic kidney disease (CKD) ICD Codes: N18.9 - Chronic kidney disease, unspecified Plan: Creat at 1.59 and GFR of 44 CKD related to diabetes Potassium WNL Urine with 3 + protein Good urine output Will monitor carefully Plan for heart cath tomorrow on heparin gtt currently. Patient has stage 3 chronic kidney disease, most likely has Hypertensive, renovascular or Diabetic Nephropathy. Has risk for contrast Nephropathy about 15%. IV Hydration , start NS. BMP from today is still pending, for Cardiac Cath today. Patient understand the risk for Contrast Nephropathy. (2) NSTEMI (non-ST elevated myocardial infarction) ICD Codes: I21.4 - Non-ST elevation (NSTEMI) myocardial infarction Plan: Chest pain is improving On heparin gtt and nitro paste BB and statin Heart cath tomororw (3) Chronic hyponatremia ICD Codes: E87.1 - Chronic hyponatremia Status: Acute Plan: Sodium 133 asymptomatic will monitor (4) DM (diabetes mellitus) ICD Codes: E11.9 - Type 2 diabetes mellitus without complications Status: Chronic Plan: BS AC and HS Insulin dependent maintain BS 140mg/dl to 180 mg/dl Problem Qualifiers (1) Chronic kidney disease (CKD): Qualified Codes: N18.3 - Chronic kidney disease, stage 3 (moderate) Jai Godinez MD Jun 27, 2017 10:21
[2017-06-27 11:19] LABS: BICARBONATE 25.8 MEQ/L (21.0-32.0); CALCIUM 8.9 MG/DL (8.5-10.1); CREATININE 1.63 MG/DL (0.60-1.30)
[2017-06-27] MEDS: FUROSEMIDE 40 MG TAB PO SCH (11:35)
[2017-06-27] MEDS: SODIUM CHLORIDE 0.9% FLUSH 10 ML FLUSH IV FLUSH SCH ×2 (11:35→21:54)
[2017-06-27] MEDS: METOPROLOL SUCCINATE 50 MG EXTENDED RELEASE TAB PO SCH (11:36)
[2017-06-27] MEDS: DIGOXIN 0.125 MG TAB PO SCH (11:36)
[2017-06-27] MEDS: ASPIRIN 81 MG CHEW TAB PO SCH (11:37)
[2017-06-27] MEDS: SODIUM CHLOR 0.9% 1000 ML INJ 1,000 ML IV SCH ×2 (11:39→23:55)
--- NOTE | 2017-06-27 12:42 | PD.WOU.CON ---
Patient Intake Chief Complaint Plantar wounds right foot Consult Requested by Dr. Ragsdale and Dr. Saldivar Reason for Consult Evaluation and treatment of wounds right foot Primary Care Physician Di Dutton D.O. History of Present Illness Patient is a 66-year-old male well known to myself from previous wound center visits. He has had a long history of noncompliance and tobacco abuse. He has previously had a transmetatarsal amputation of the right foot and a below-knee amputation of the left foot. He presented to the hospital with chest pain is going to undergo a cardiac catheterization this afternoon. Patient states about a week before his hospitalization he picked a callus off the bottom of his foot and has an open wound. Denies any signs of infection or cellulitis. States he is down to smoking one half pack of cigarettes per day from 2-3 packs per day. Coded Allergies: Sulfa (Sulfonamide Antibiotics) (Verified Allergy, Severe, Itching, Elevated Blood Pressure, SOB, 06/23/17) sulfamethoxazole (Verified Allergy, Severe, Elevated blood pressure, Generalized itching, 06/23/17) trimethoprim (Verified Allergy, Severe, Elevated blood pressure, Generalized itching, 06/23/17) MRI PRECAUTION (Verified Adverse Reaction, Severe, PACEMAKER KD NOT REVO, 06/23/17) Preferred Language to Discuss: Somali Barriers to Learning: None Teaching Method: Discussion Vital Signs Date Time Temp Pulse Resp B/P (MAP) Pulse Ox O2 Delivery O2 Flow Rate FiO2 06/27/17 08:00 97.4 63 20 105/58 (74) 98 06/27/17 04:06 61 06/27/17 04:00 Room Air 06/27/17 04:00 97.5 72 18 127/83 (98) 98 06/27/17 00:16 60 06/27/17 00:00 Room Air 06/27/17 00:00 98.8 63 19 108/66 (80) 97 06/26/17 20:05 66 06/26/17 20:00 98.3 62 20 108/57 (74) 98 06/26/17 20:00 Room Air 06/26/17 16:00 62 06/26/17 16:00 97.8 66 18 115/58 (77) 98 Pain scale used: 0-10 numeric scale Pain score: 0 Medications Current Medications Sodium Chloride (NS Flush) 2 ml UNSCH PRN IVF FLUSH AFTER USING IV ACCESS; Start 06/23/17 at 09:00; Stop 06/23/17 at 12:05; Status DC Metoprolol Tartrate (Lopressor Inj) 5 mg Q5M PRN IV PUSH SBP>180, DBP>95; Start 06/23/17 at 09:30 Aspirin (Aspirin) 325 mg ONCE ONCE PO ; Start 06/23/17 at 09:45; Stop 06/23/17 at 09:46; Status DC Heparin Sodium (Porcine) (Heparin Inj) 5,400 units ONCE ONCE IV PUSH ; Start at 09:45; Stop 06/23/17 at 09:46; Status DC Heparin Sodium (Porcine) (Heparin Inj) 5,000 units UNSCH PRN IV PUSH APTT LESS THAN 25; Start 06/23/17 at 15:45; Stop 06/27/17 at 08:00; Status DC Heparin Sodium (Porcine) (Heparin Inj) 2,500 units UNSCH PRN IV PUSH APTT 25 TO 39; Start 06/23/17 at 15:45; Stop 06/27/17 at 08:00; Status DC Heparin Sodium/ Dextrose 250 ml @ 10 mls/hr TITRATE PRN IV Coagulation Management Last administered on 06/26/17at 12:51; Start 06/23/17 at 09:45; Stop 06/27/17 at 08:00; Status DC Sodium Chloride (NS Flush) 2 ml UNSCH PRN IV FLUSH FLUSH AFTER USING IV ACCESS ; Start 06/23/17 at 11:15 Sodium Chloride (NS Flush) 2 ml BID IV FLUSH Last administered on 06/27/17at 11: 35; Start 06/23/17 at 21:00 Acetaminophen (Tylenol) 650 mg Q4H PRN PO TEMP > 100.4; Start 06/23/17 at 11:15 Ondansetron HCl (Zofran Inj) 4 mg Q6H PRN IVP NAUSEA OR VOMITING; Start at 11:15 Acetaminophen (Tylenol) 650 mg Q6H PRN PO PAIN SCALE 1 TO 2; Start 06/23/17 at 11:15 Naloxone HCl (Narcan Inj) 0.4 mg UNSCH PRN IV PUSH SEE LABEL COMMENTS; Start at 11:15 Magnesium Hydroxide (Milk Of Magnesia Liq) 30 ml Q12H PRN PO Mild constipation ; Start 06/23/17 at 11:15 Albuterol/ Ipratropium (Duoneb Neb) 1 ampule Q2HR NEB PRN NEB SOB/WHEEZING; Start 06/23/17 at 11:15 Dextrose (D50w (Vial) Inj) 50 ml UNSCH PRN IV PUSH HYPOGLYCEMIA-SEE COMMENTS; Start 06/23/17 at 11:15 Glucagon (Glucagon Inj) 1 mg UNSCH PRN OTHER HYPOGLYCEMIA-SEE COMMENTS; Start 06/23/17 at 11:15 Insulin Aspart (NovoLOG SUPPLEMENTAL SCALE) 1 ACHS SLIDING SCALE SQ Last administered on 06/26/17at 18:00; Start 06/23/17 at 12:00 Aspirin (Aspirin Chew) 162 mg DAILY PO Last administered on 06/27/17at 11:37; Start 06/24/17 at 09:00 Nitroglycerin (Nitroglycerin 2% Oint) 1 inch Q6HR TOP Last administered on 06/27at 11:34; Start 06/23/17 at 12:00 Hydralazine HCl (Apresoline Inj) 20 mg Q4H PRN IV PUSH SBP>160, DBP>90; Start 06/23/17 at 11:15 Phytonadione (Mephyton Liq) 5 mg ONCE ONCE PO Last administered on 06/23/17at 17:43; Start 06/23/17 at 14:15; Stop 06/23/17 at 15:00; Status DC Atorvastatin Calcium (Lipitor) 80 mg HS PO Last administered on 06/26/17at 21:49 ; Start 06/23/17 at 21:00 Digoxin (Lanoxin) 0.125 mg DAILY PO Last administered on 06/27/17at 11:36; Start 06/24/17 at 09:00 Furosemide (Lasix) 40 mg DAILY PO Last administered on 06/27/17at 11:35; Start 06/24/17 at 09:00 Insulin Detemir (Levemir Inj) 32 units Q12HR SQ Last administered on 06/26/17at 21:49; Start 06/23/17 at 21:00 Isosorbide Mononitrate (Imdur) 30 mg DAILY@0700 PO Last administered on at 06:01; Start 06/24/17 at 07:00 Metoprolol Succinate (Toprol Xl) 25 mg DAILY PO Last administered on 06/27/17at 11:36; Start 06/24/17 at 09:00 Morphine Sulfate (Msir) 15 mg 5 TIMES A DAY PO Last administered on 06/27/17at 06:01; Start 06/23/17 at 18:00 Sodium Chloride 1,000 ml @ 84 mls/hr [id number] IV Last administered on at 11:39; Start 06/27/17 at 12:00 Past, Family & Social History Past Medical History HEENT: DENIES HX OF: Cataracts, Glaucoma, Recurrent ear infections, Recurrent sinusitis, Other HEENT history Endocrine: REPORTS HX OF: Diabetes mellitus, DENIES HX OF: Graves disease, Hyperthyroidism, Hypothyroidism, Other endocrine history Respiratory: DENIES HX OF: Allergies/hay fever, Asthma, COPD, CPAP use, Sleep apnea, Other respiratory history Cardiovascular: REPORTS HX OF: Abdominal aortic aneurysm, Atrial fibrillation, Coronary artery disease, Hyperlipidemia, Hypertension, Peripheral vascular dz, Other CV history (Pacemaker,cardiomyopathy,chronic systolic dysfuntion,) Gastrointestinal: REPORTS HX OF: GERD, DENIES HX OF: Colitis, Irritable bowel syndrome, Liver disease, Pancreatitis, Peptic ulcer disease, Other GI history Genitourinary: DENIES HX OF: Chlamydia, Gonorrhea, Hemodialysis, Herpes genitalis, Human papillomavirus, Kidney disease, Kidney failure, Kidney stones, Past UTI, Peritoneal dialysis, Urinary incontinence, Other history Genitourinary - Male: REPORTS HX OF: Erectile dysfunction Musculoskeletal: DENIES HX OF: Fibromyalgia, Fractures, Gout, Osteoarthritis, Osteoporosis, Rheumatoid arthritis, Other musculoskeletal hx Cancer/Hematology: DENIES HX OF: Anemia, Bladder Cancer, Blood cancer, Brain cancer, Breast cancer, Colorectal cancer, Endocrine cancer, Eye cancer, GI cancer, cancer, Kidney cancer, Leukemia, Liver cancer, Lung cancer, Lymphoma , Musculoskeletal cancer, Neurologic cancer, Oral cancer, Skin cancer, Stomach cancer, Thyroid cancer, Other cancer/hematology Cancer - Male: DENIES HX OF: Prostate cancer, Testicular cancer Infectious Disease: REPORTS HX OF: Hepatitis (C AND B), MRSA, DENIES HX OF: AIDS, Chickenpox, HIV, Measles, Mumps, Polio, Positive PPD, Rheumatic fever, Rubella, Syphilis, Tuberculosis, Vanc-resistant enterococc, Other inf disease history Integumentary: REPORTS HX OF: Other integumentary hx (DRY SKIN), DENIES HX OF: Acne, Eczema, Psoriasis Neurologic: REPORTS HX OF: Peripheral neuropathy, Other neurologic history ( chronic pain syndrome), DENIES HX OF: ADHD, Autism, Dementia, Developmental delay, Headaches, Multiple sclerosis, Parkinson disease, Restless leg syndrome, Seizures, Stroke, Transient ischemic attack Psychiatric: DENIES HX OF: Anorexia nervosa, Anxiety, Bipolar disorder, Bulimia , Depression, Schizophrenia, Other psychiatric history Genetic/Metabolic: DENIES HX OF: Cystic fibrosis, Down syndrome, Other genetic history, Other metabolic history Events: DENIES HX OF: Anaphylaxis, Gunshot wound, Motor vehicle accident, Other events Disabilities: DENIES HX OF: Hearing deficit, Vision deficit, Hemiparesis, Paraplegia, Quadriplegia, Other disabilities Past Surgical History HEENT: DENIES HX OF: Cataract extraction, Dental surgery, Laryngectomy, Tonsillectomy, Other head surgery, Other eye surgery, Other ear surgery, Other nasal surgery, Other throat surgery Endocrine: DENIES HX OF: Parathyroidectomy, Thyroid surgery, Other endocrine surgery Respiratory: DENIES HX OF: Bronchoscopy, Lobectomy, Other chest surgery Cardiovascular: REPORTS HX OF: Angioplasty, Carotid endarterectomy, Pacemaker, Other cardiac surgery (Aortogram with right anterior tibial atherectomy), DENIES HX OF: Angiogram, CABG surgery, Coronary stent, Heart transplant, Valve replacement Gastrointestinal: REPORTS HX OF: Colectomy, total, DENIES HX OF: Appendectomy, Cholecystectomy, Colectomy, subtotal, Gastric bypass, Hernia repair, Splenectomy , Other GI surgery Genitourinary: REPORTS HX OF: Other surgery (liver biopsy 1994), DENIES HX OF: Bladder surgery, Kidney stone extraction, Nephrectomy Genitourinary - Male: DENIES HX OF: Prostatectomy, TURP, Vasectomy Musculoskeletal: REPORTS HX OF: Other musculoskeletal srg (right foot transmetatarsal amputation 2010. Left below-knee amputation), DENIES HX OF: Joint replacement Integumentary: DENIES HX OF: Skin cancer removal, Other integumentary surg Neurologic: DENIES HX OF: Craniotomy, Spinal surgery, Other neurologic surgery Breast: DENIES HX OF: Breast biopsy, Lumpectomy, Mastectomy, bilateral, Mastectomy, left, Mastectomy, right, Other breast surgery Family Medical History Cardiac arrest G8 FATHER, , Age:Unknown G8 MOTHER, , Age:76 Diabetes mellitus G8 MOTHER, , Age:76 Social History Social History: Lives Independently: Yes Diet and Exercise Dietary Habits: Well-balanced Diet: Rarely or never High-fat Food Intake: 3 or more times/day Reads Food Labels: Seldom or never Alcohol Use Alcohol Intake: None Substance Use Substance Use: Denies use Review of Systems Constitutional: COMPLAINS OF: Pain, DENIES: Good general health Eyes: COMPLAINS OF: Poor Vision/Glasses/Conta Cardiovascular: COMPLAINS OF: Heart Disease, Swelling legs / ankles Genitourinary: COMPLAINS OF: Renal disease Musculoskeletal: COMPLAINS OF: Joint pain/swell/dysarthr, Deformaties Integumentary: COMPLAINS OF: Slow to heal after cuts Neurological: COMPLAINS OF: Numbness/tingling, Changes in sensation Wound Assessment Vascular Assessment R Dorsails Pedis: Doppler R Posterior Tibial: Doppler Color of Right Extremity: WNL Sensation of Right Extremity: Diminished Extremities Evaluation: Edema Right, Edema Left Wound Information - Wound One Wound Location: plantar right foot Wound Type: Diabetic Ulcer Classification: PT- partial thickness Wound Length: 1 cm Wound Width: 1 cm Wound Depth: 0.1 cm Photo Taken: No Exudate: None Granulation Tissue Color: None Granulation Tissue Texture: N/A Exposed: No exposed bone, muscle, tendon Eschar: No Odor: No Periwound Appearance: FINDINGS: Normal Dressing Notes: Moisturizing cream to the foot Wound Two Wound Location: plantar aspect left great toe Wound Three Wound Location: Left great toe amputation site Lab and Radiology Results Laboratory Laboratory Tests Test 06/26/17 04:37 White Blood Count 10.1 TH/MM3 Red Blood Count 3.99 MIL/MM3 Hemoglobin 12.8 GM/DL Hematocrit 36.7 % Mean Corpuscular Volume 91.9 FL Mean Corpuscular Hemoglobin 32.1 PG Mean Corpuscular Hemoglobin Concent 34.9 % Red Cell Distribution Width 15.7 % Platelet Count 186 TH/MM3 Mean Platelet Volume 8.5 FL Laboratory Tests Test 06/27/17 07:30 Blood Urea Nitrogen 30 MG/DL Creatinine 1.63 MG/DL Random Glucose 140 MG/DL Calcium Level 8.9 MG/DL Sodium Level 133 MEQ/L Potassium Level 3.9 MEQ/L Chloride Level 99 MEQ/L Carbon Dioxide Level 25.8 MEQ/L Anion Gap 8 MEQ/L Estimat Glomerular Filtration Rate 43 ML/MIN Radiology Last Impressions Chest X-Ray 06/23/17 0846 Signed Impressions: Service Date/Time: June 09:04 - CONCLUSION: Normal examination. Left subclavian pacemaker in good position. John Elizalde MD Assessment/Plan Problem List: (1) Right foot ulcer Status: Chronic (2) Non-compliance Status: Chronic (3) Diabetes mellitus with diabetic neuropathy Status: Chronic (4) CAD (coronary artery disease) Status: Chronic (5) DIAB W NEURO MANIFEST, TYPE II OR UNSPEC TYPE, UNCONTROLLED Status: Chronic (6) Ulcer of foot due to diabetes Status: Chronic Additional information PLAN: I will order order ammonium lactate lotion to his foot twice a day. He is to follow-up with me on an outpatient basis Problem Qualifiers (1) Right foot ulcer: Qualified Codes: L97.511 - Non-pressure chronic ulcer of other part of right foot limited to breakdown of skin (2) Diabetes mellitus with diabetic neuropathy: Qualified Codes: E11.40 - Type 2 diabetes mellitus with diabetic neuropathy, unspecified; Z79.4 - group home (current) use of insulin (3) CAD (coronary artery disease): Qualified Codes: I25.119 - Atherosclerotic heart disease of [place] coronary artery with unspecified angina pectoris (4) Ulcer of foot due to diabetes: Qualified Codes: E11.621 - Type 2 diabetes mellitus with foot ulcer; L97.411 - Non-pressure chronic ulcer of right heel and midfoot limited to breakdown of skin Farhat Gregorio DPM Jun 27, 2017 12:42
--- NOTE | 2017-06-27 16:04 | HHI.PR ---
Subjective Remarks patient seenand examined, Dr. Gregorio to podiatry was in the room Patient going for heart catheter later on today Afebrile no chest pain or short of breath or acute issues overnight Objective Vitals Vital Signs Date Time Temp Pulse Resp B/P (MAP) Pulse Ox O2 Delivery O2 Flow Rate FiO2 06/27/17 08:00 97.4 63 20 105/58 (74) 98 06/27/17 04:06 61 06/27/17 04:00 Room Air 06/27/17 04:00 97.5 72 18 127/83 (98) 98 06/27/17 00:16 60 06/27/17 00:00 Room Air 06/27/17 00:00 98.8 63 19 108/66 (80) 97 06/26/17 20:05 66 06/26/17 20:00 98.3 62 20 108/57 (74) 98 06/26/17 20:00 Room Air I/O 06/26/17 06/26/17 06/26/17 06/27/17 06/27/17 06/27/17 07:00 15:00 23:00 07:00 15:00 23:00 Intake Total 1600 ml 0 ml Output Total 600 ml 1700 ml 1100 ml Balance -600 ml -100 ml -1100 ml Intake Oral 1600 ml 0 ml Output Urine Total 600 ml 1700 ml 1100 ml # Bowel Movements 0 1 Result Diagram: 06/26/17 0437 06/27/17 0730 Objective Remarks GENERAL: 66 years old male resting in bed comfortably no acute distress NECK: 2+ carotid upstrokes. No bruits. LUNGS: Fair air entry no wheezing HEART: Regular with no murmur, gallop or rub. ABDOMEN: Soft. Tender nondistended, positive BS. EXTREMITIES: With mild edema, is status post left BKA. Diminished distal pulses. NEUROLOGIC: AAO 3 oriented. No focal deficit A/P Problem List: (1) Non-ST elevation [place] (NSTEMI) ICD Code: I21.4 - Non-ST elevation (NSTEMI) myocardial infarction Status: Acute Assessment and Plan 06/24: Continue aggressive risk stratification, appreciate cardiology input, creatinine increased from 1. 4- 1.59, continue monitor BUN over creatinine, avoid nephrotoxin, plan for heart catheter on Tuesday to continue monitoring INR start heparin drip once normalized 06/25: Continue current care with risk stratification, INR came back 1.7 we'll start heparin drip per protocol for OR, plan for heart catheter on Monday 06/26: Appreciate nephrology consultation, will follow a 4 post heart catheter, plan for in a.m., check BMP in a.m. 06/27: Seen with the podiatry today, going for heart catheter later on, continue monitoring under telemetry post catheter A/P: 66 years old man with 1. NSTEMI Start nitroglycerin paste, aspirin Hold on heparin drip secondary to elevated APTT Resume home Statin, Metoprolol Consult cardiology for evaluation for left heart catheterization 2-D echo 2. CHF: Chronic. Systolic. Echo 09/07/13 w/ EF 30-35%, s/p AICD No evidence of fluid overload. BNP mildly elevated @230, CXR w/ no acute findings, images reviewed by me Resume outpatient medications 3. Supra Therapeutic INR Treat with Vit K 5mg PO x 1 4. Leukocytosis: WBC 13.3, CXR w/ no acute findings, images reviewed by me.Check UA and repeat labs in am. 5. A-fib: Chronic. Resume home Digoxin/Metoprolol. INR supra therapeutic, Hold Coumadin. 6. Chronic Pain syndrome: Resume home Morphine PO 7. DM: Sliding scale w/ Accu-Cheks, resume home Insulin 8. Tobacco Abuse: Ativan prn, no NicoDerm to avoid vasoconstriction. 9. DVT Prophylaxis: Heparin Sreedhar Saldivar MD Jun 27, 2017 16:04
[2017-06-27] MEDS ORDERED: HEPARIN SODIUM - IV 10,000 UNITS/10 ML VIAL ONE (16:58)
[2017-06-27] MEDS ORDERED: MIDAZOLAM HCL 2 MG/2 ML VIAL ONE (17:03)
[2017-06-27] MEDS ORDERED: HEPARIN-NS/PF INJ 1,000 ML ONE (17:04)
[2017-06-27] MEDS ORDERED: NITROGLYCERIN INJ 5 ML ONE (17:04)
[2017-06-27] MEDS ORDERED: SODIUM CHLOR 0.9% 1000 ML INJ 500 ML IV SCH (18:13)
--- NOTE | 2017-06-27 18:13 | CATHPROC ---
[facility] HIS Report Study Information Study Number Admission Scheduled Start Study Start [id number] Jun 23 2017 10:16AM 06/27/2017 Jun 27 2017 4:44PM [place] Service Cardiac Catheterization Admit Source Facility Department Emergency department [facility] - Site Manager Physician and Clinical Staff Initial Nancy Miller Beauty Advisorjada Alfaro RN, Scooter Beauty AdvisorCoral Pozo RN Beauty Advisor Opal Conteh BSN Other cathlab, cathlab Recorder Kari Longo,RT(R) Scrub Jj Morgan,RT(R) Procedures Performed Procedure Location (Site) Vessel Name Angiogram LV LV Ventricle Coronary Angiograms LCA Left Coronary Coronary Angiograms RCA Right Coronary Coronary Angiograms BUSCH BUSCH L Heart Cath Equipment Time Director Of Litigation Description Size Mfg Part Number Used/Scraped TRANSDUCER, TRUWDIANA [id number] 16:46 MELLO OBANDO * Used W/STOCKCOCK *[id number] 16:46 MEDLINE [employer] PACK, CCL CUSTOM * Used *[id number] 16:46 Yuuguu PACER PEN, SKIN DUAL W/ RULER * Used *[id number] 16:56 MEDTRONIC AR MOD DXTERITY CATHETER FR 5 [id number] Used [id number] 16:56 MEDTRONIC JL 4.0 DXTERITY CATHETER FR 5 Used *[id number] PIG ANG 145 DXTERITY 17:00 MEDTRONIC FR 5 [id number] Used CATHETER [id number] 16:46 [employer] WIRE, 3MMJ .035 180CM 180CM Used *[id number] PROBE COVER, STERILE [id number] 16:46 [employer] * Used ULTRASOUND W/ GEL *[id number] 16:46 NAMIC MANIFOLD, 4 PORT * Used *[id number] 16:46 NAMIC TUBING, HIGH PRESSURE 48" 48" Used *[id number] 16:46 NYCOMED OMNIPAQUE, 350 MG, 150ML 150ML [id number] Used 17:35 [employer]COMED OMNIPAQUE, 350 MG, 150ML 150ML [id number] Used 17:35 NYCOMED OMNIPAQUE, 350 MG, 50ML 50ML [id number] Used 17:21 NYCOMED OMNIPAQUE, 350 MG, 50ML 50ML [id number] Used [id number] 16:46 [employer] BL[employer],WARM AIR CCL * Used *[id number] 16:46 TERUMO MEDICAL SHEATH, FR5 TERUMO (10CM) FR 5 Used *[id number] Equipment Model, Serial, Lot Number and Expiration Data Description Model Number Serial Number Lot Number Expiration Date AR MOD DXTERITY CATHETER [id number] 10-02-2019 JL 4.0 DXTERITY CATHETER [id number] 01-12-2020 History: Current Medications Medication Dosage/Unit Route Frequency Last Date/Time Taken Beta Derek ASA History: Allergies Allergy Reaction *MDRO Multi-Drug Resistant Organism Bactrim Elevated blood pressure, Generalized itching MRI PRECAUTION PACEMAKER KD 04/19/11 NOT REVO Sulfa Itching, Elevated Blood Pressure, SOB Sulfa (Sulfonamide Antibiotics) Itching, Elevated Blood Pressure, SOB sulfamethoxazole Elevated blood pressure, Generalized itching trimethoprim Elevated blood pressure, Generalized itching History: Risk Factors Family History of Hypertension Dyslipidemia Previous LA Previous Heart Failure Premature CAD Yes Yes Yes Yes No Prior Valve Prior PCI Prior CABG Surgery No No No Cerebrovascular Peripheral Artery Chronic Lung On Dialysis Diabetes Diabetes Therapy Disease Disease Disease Yes No Yes No Yes Oral History: Symptoms/Diagnosis Selection Items Chest pain History: Stress Tests Stress or Imaging Studies Performed No History: Arrhythmias Selection Items Atrial fibrillation History: Other Disease Selection Items CAD HTN History: LA/CV Data Previous Cath Date 03/27/2009 History: Other Current Smoker Method Packs a Day Years Used Pack Years Yes Cigarettes 1 44 44 Labs Hgb (g/dl) Hct (%) WBC (l/cumm) Platelets (thousands) 11.60-17.00 35.00-51.00 4.00-11.00 150.00-450.00 12.8 36.7 10.1 186 Glucose (mg/dl) BUN (mg/dl) Creatinine (mg/dl) BUN:Creatinine (1:x) 74.00-106.00 7.00-18.00 0.50-1.30 10.00-20.00 140 30 1.6 18.8 Na (meq/l) K (meq/l) 136.00-145.00 3.50-5.10 133 3.4 INR (PTT:PT) 0.90-1.10 1.7 Troponin I (ng/ml) CPK (u/l) CPK-MB (ng/ML) 0.02-0.05 26.00-308.00 0.50-3.60 40 561 41.2 Medication Medication Total Dose (Bolus/Oral) Medication Total Dosage/Unit 1% XYLOCAINE 20 mL FENTANYL 75 mcg VERSED 3 mg Medications (Bolus/Oral) Medication Time Given Dosage/Unit Administered By Reason VERSED 06/27/2017 5:12:26 PM 2 mg Coral Swann 2 mg VERSED given in lab by Coral Swann RN in Left Forearm via Peripheral IV. Ordered by Nancy Rodriguez. FENTANYL 06/27/2017 5:12:40 PM 50 mcg Coral Swann 50 mcg FENTANYL given in lab by Coral Swann RN in Left Forearm via Peripheral IV. Ordered by Nancy Daniels. VERSED 06/27/2017 5:15:54 PM 1 mg Coral Swann 1 mg VERSED given in lab by Coral Swann RN in Left Forearm via Peripheral IV. Ordered by Nancy Rodriguez. FENTANYL 06/27/2017 5:16:01 PM 25 mcg Coral Swann 25 mcg FENTANYL given in lab by Coral Swann RN in Left Forearm via Peripheral IV. Ordered by Nancy Daniels. 1% XYLOCAINE 06/27/2017 5:17:19 PM 20 mL Nancy Rodriguez 20 mL 1% XYLOCAINE given in lab by Nancy Rodriguez in Right Groin via Subcutaneous. Medication (Drip) Medication Time Given Dosage/Unit Concentration/Unit Diluent (ml) Solution IV Solutions 06/27/2017 4:45:44 PM 50 mL (IV) 500 NaCl .9 IV Solutions given in lab by Scooter Alfaro RN in Left Forearm via Peripheral IV. Pump/Drip Flow using NaCl .9. Initial Case Assessment Cardiovascular HR Rhythm NIBP Chest Pain 79 SR 162/96 0 Edema Present Skin color Skin Mild Normal Warm Dry Circulatory - Right Pulses Femoral 1 Scale (0,1,2,3,4,d) Circulatory - Left Pulses Femoral 1 Scale (0,1,2,3,4,d) Neurological State Oriented to time-place- Alert Moves all extremities person Respiration - General Respiration Rate SpO2 (%) (B/min) 18 100 Final Case Assessment Cardiovascular HR Rhythm NIBP Chest Pain 68 SR 109/68 0 Edema Present Skin color Skin Mild Normal Warm Dry Circulatory - Right Pulses Femoral 1 Scale (0,1,2,3,4,d) Circulatory - Left Pulses Femoral 1 Scale (0,1,2,3,4,d) Neurological State Oriented to time-place- Alert Moves all extremities person Respiration - General Respiration Rate SpO2 (%) (B/min) 18 100 Chronological Log Time Study Chronological Log 16:45:34 Patient arrived via Bed. 16:45:35 Patient Name, D.O.B, / Armband Verified By R.N. 16:45:36 Consent signed by the physician and the patient and verified by the Site Manager staff. 16:45:36 Pre-op and post- op instructions given; patient acknowledges understanding of instructions. 16:45:37 Verbal Stimulation=2 Physical Stimulation=2 Airway=2 Respiration=2 TOTAL=8. (0=absent, 1=li mited, 2=present) 16:45:38 Presedation assessment performed by Site Manager RN. 16:45:40 Immediate Presedation assesment performed by physician. 16:45:40 Patient has been NPO for More than 6Hrs. 16:45:41 Skin Breakdown- none per pt 16:45:42 Patient Warmer Placed on the Table. 16:45:43 Abdullahi Prominences Protected 16:45:44 A # 20 IV was noted in the Forearm (left). Grade = 0 16:45:44 IV Solutions given in lab by Scooter Alfaro RN in Left Forearm via Peripheral IV. Pump/Drip F low using NaCl .9. 16:45:45 History and physical on the chart or being dictated. Vitals capture started with the following parameters, Patient=Adult, Interval=5 min, Initial Pr qlpywd=284 mmHg, 16:49:33 Deflation Rate=5 mmHg, Cuff placed on Left Arm 16:50:47 HR=78 bpm, ROUO=211/109 mmhg, UcZ7=065 %, Resp=18 B/min 16:55:19 HR=77 bpm, YSFC=521/104 mmhg, WnO7=045.0 %, Resp=14 B/min 17:00:18 HR=78 bpm, YOWF=805/96 mmhg, SpO2=99.0 %, Resp=13 B/min Assessment: Initial Case, HR=79 BPM, Rhythm=SR, WDLG=612/96 mmhg, Chest Pain=0, Edema=Mild, Col or=Normal, Skin = Warm, Dry Right Pulses: Femoral=1 17:01:31 Left Pulses: Femoral=1 Neurological: State=Alert, Ox3, SMITH Respiration: Resp=18 B/min, GdP3=024 % 17:01:32 AKA left leg. Partial foot amputation on right foot. Severe discoloration of right leg belo w knee. 17:01:37 Reference ECG taken 17:02:52 Bilateral groins prepped with 2% chlorhexidine, and draped after a 3 minute waiting time. 17:05:19 HR=77 bpm, KCKV=978/89 mmhg, SpO2=98.0 %, Resp=12 B/min 17:06:07 MD paged 17:09:51 Pressure channel 1 zeroed. 17:10:14 HR=79 bpm, XOCJ=884/97 mmhg, SpO2=99.0 %, Resp=16 B/min 17:10:51 MD arrived. 17:12:26 2 mg VERSED given in lab by Coral Swann RN in Left Forearm via Peripheral IV. Ordered by Nancy Rodriguez. 17:12:40 50 mcg FENTANYL given in lab by Coral Swann RN in Left Forearm via Peripheral IV. Orde red by Nancy Rodriguez. 17:15:15 HR=65 bpm, MWVJ=463/78 mmhg, SpO2=97.0 %, Resp=15 B/min 17:15:54 1 mg VERSED given in lab by Coral Swann RN in Left Forearm via Peripheral IV. Ordered by Nancy Rodriguez. 17:16:01 25 mcg FENTANYL given in lab by Coral Swann RN in Left Forearm via Peripheral IV. Orde red by Nancy Rodriguez. Time Out. Correct patient, correct procedure, correct physician, power injector loaded, or not loaded with contrast with 17:16:21 surgical team present. Time Out Concurred by MD and individual staff in procedure. 17:17:11 Case Start 17:17:19 20 mL 1% XYLOCAINE given in lab by Nancy Rodriguez in Right Groin via Subcutaneous. 17:19:14 Access site was Right Femoral Artery. 17:19:21 A SHEATH, FR5 TERUMO (10CM) FR 5 was advanced into the Fem Art (right) using the Percutaneo us technique. A PIG ANG 145 DXTERITY CATHETER FR 5 was advanced over a wire. OMNIPAQUE, 350 MG, 150ML 150ML w as used 17:19:24 for injections. 17:20:12 HR=64 bpm, IPCQ=245/68 mmhg, SpO2=99.0 %, Resp=14 B/min, Pain=0, Silvia=10, Mccoy=2 Recorded Pressure: LV, HR=60, Condition=Condition 1 17:21:09 (Left Ventricle) LV 106/10/14 17:21:18 The LV was injected at 10 cc/sec for a total of 30. OMNIPAQUE, 350 MG, 50ML 50ML used. Recorded Pressure: LV, Ao, HR=69, Condition=Condition 1 17:22:52 (Left Ventricle) LV 88/8/12, (Aorta) Ao 96/48/68 17:23:15 Catheter was removed A JL 4.0 DXTERITY CATHETER FR 5 was advanced over a wire. OMNIPAQUE, 350 MG, 150ML 150ML was us ed for 17:23:16 injections. Recorded Pressure: Ao, HR=75, Condition=Condition 1 17:24:47 (Aorta) Ao 106/57/77 17:24:53 The LCA was injected and visualized at various angles. OMNIPAQUE, 350 MG, 150ML 150ML used . 17:25:13 HR=73 bpm, NIBP=98/62 mmhg, SpO2=99.0 %, Resp=14 B/min, Pain=0, Silvia=10, Mccoy=2 17:28:04 Catheter was removed A AR MOD DXTERITY CATHETER FR 5 was advanced over a wire. OMNIPAQUE, 350 MG, 150ML 150ML was us ed for 17:28:04 injections. 17:29:15 The RCA was injected and visualized at various angles. OMNIPAQUE, 350 MG, 150ML 150ML used . 17:30:08 HR=73 bpm, SGAL=565/68 mmhg, AgE6=157.0 %, Resp=15 B/min, Pain=0, Silvia=10, Mccoy=2 17:30:56 The BUSCH was injected and visualized at various angles. OMNIPAQUE, 350 MG, 150ML 150ML use d. 17:33:08 Catheter was removed 17:33:10 Case End Assessment: Final Case, HR=68 BPM, Rhythm=SR, QAMB=095/68 mmhg, Chest Pain=0, Edema=Mild, Halliday r=Normal, Skin = Warm, Dry Right Pulses: Femoral=1 17:33:31 Left Pulses: Femoral=1 Neurological: State=Alert, Ox3, SMITH Respiration: Resp=18 B/min, RfE4=097 % 17:33:43 No case complications noted. 17:33:44 Cine recording checked. 17:33:45 Bedside Report will be given. 17:33:47 Contrast Scanned 17:33:48 Verbal Stimulation=2 Physical Stimulation=2 Airway=2 Respiration=2 TOTAL=8. (0=absent, 1=l imited, 2=present) 17:33:58 A Left Heart Cath was performed. 17:35:20 Sheath removed; pressure applied to access site. 17:35:42 HR=62 bpm, GUXX=312/73 mmhg, WtP5=204.0 %, Resp=16 B/min, Pain=0, Silvia=10, Mccoy=2 17:40:14 HR=65 bpm, TZTJ=980/69 mmhg, SpO2=99.0 %, Resp=16 B/min, Pain=0, Silvia=10, Mccoy=2 17:45:17 HR=60 bpm, JOSO=687/73 mmhg, SpO2=90.0 %, Resp=11 B/min, Pain=0, Silvia=10, Mccoy=2 17:45:32 Sterile dressing applied to site 17:50:59 HR=70 bpm, AITT=134/78 mmhg, SpO2=99 %, Resp=15 B/min, Pain=0, Silvia=10, Mccoy=2 17:55:46 HR=72 bpm, YWZS=021/84 mmhg, SpO2=84.0 %, Resp=16 B/min, Pain=0, Silvia=10, Mcocy=2 17:59:17 Vitals capture stopped. 17:59:25 Patient moved to stretcher End Study - Contrast Media Used In Study Contrast Total Opened (mL) Total Used (mL) Total Wasted (mL) Omnipaque 60 60 0 End Study - Maximum Contrast Load Max Contrast Load (mL) 275.6 End Study - Radiation Exposure Fluoro Time (minutes) 2.9 End Study - Sheaths Sheaths Pulled By Sheath Hold Time (min) Hosterman, Jj 15 End Study - Patient Disposition Complications Transferred To Interventional Outcome No Telemetry Bed No attempt made
--- NOTE | 2017-06-27 20:54 | PD.POD ---
Subjective Podiatric Problems Tried to see patient today, but off the floor in procedure. Will attempt consult again tomorrow Pain scale used: 0-10 numeric scale Pain score: 0 Past Med/Surg/Social History Past Medical History HEENT: DENIES HX OF: Cataracts, Glaucoma, Recurrent ear infections, Recurrent sinusitis, Other HEENT history Endocrine: REPORTS HX OF: Diabetes mellitus, DENIES HX OF: Graves disease, Hyperthyroidism, Hypothyroidism, Other endocrine history Respiratory: DENIES HX OF: Allergies/hay fever, Asthma, COPD, CPAP use, Sleep apnea, Other respiratory history Cardiovascular: REPORTS HX OF: Abdominal aortic aneurysm, Atrial fibrillation, Coronary artery disease, Hyperlipidemia, Hypertension, Peripheral vascular dz, Other CV history (Pacemaker,cardiomyopathy,chronic systolic dysfuntion,) Gastrointestinal: REPORTS HX OF: GERD, DENIES HX OF: Colitis, Irritable bowel syndrome, Liver disease, Pancreatitis, Peptic ulcer disease, Other GI history Genitourinary: DENIES HX OF: Chlamydia, Gonorrhea, Hemodialysis, Herpes genitalis, Human papillomavirus, Kidney disease, Kidney failure, Kidney stones, Past UTI, Peritoneal dialysis, Urinary incontinence, Other history Genitourinary - male: REPORTS HX OF: Erectile dysfunction Musculoskeletal: DENIES HX OF: Fibromyalgia, Fractures, Gout, Osteoarthritis, Osteoporosis, Rheumatoid arthritis, Other musculoskeletal hx Cancer/Hematology: DENIES HX OF: Anemia, Bladder Cancer, Blood cancer, Brain cancer, Breast cancer, Colorectal cancer, Endocrine cancer, Eye cancer, GI cancer, cancer, Kidney cancer, Leukemia, Liver cancer, Lung cancer, Lymphoma , Musculoskeletal cancer, Neurologic cancer, Oral cancer, Skin cancer, Stomach cancer, Thyroid cancer, Other cancer/hematology Cancer - male: DENIES HX OF: Prostate cancer, Testicular cancer Infectious disease: REPORTS HX OF: Hepatitis (C AND B), MRSA, DENIES HX OF: AIDS, Chickenpox, HIV, Measles, Mumps, Polio, Positive PPD, Rheumatic fever, Rubella, Syphilis, Tuberculosis, Vanc-resistant enterococc, Other inf disease history Integumentary: REPORTS HX OF: Other integumentary hx (DRY SKIN), DENIES HX OF: Acne, Eczema, Psoriasis Neurologic: REPORTS HX OF: Peripheral neuropathy, Other neurologic history ( chronic pain syndrome), DENIES HX OF: ADHD, Autism, Dementia, Developmental delay, Headaches, Multiple sclerosis, Parkinson disease, Restless leg syndrome, Seizures, Stroke, Transient ischemic attack Psychiatric: DENIES HX OF: Anorexia nervosa, Anxiety, Bipolar disorder, Bulimia , Depression, Schizophrenia, Other psychiatric history Genetic/metabolic: DENIES HX OF: Cystic fibrosis, Down syndrome, Other genetic history, Other metabolic history Events: DENIES HX OF: Anaphylaxis, Gunshot wound, Motor vehicle accident, Other events Disabilities: DENIES HX OF: Hearing deficit, Vision deficit, Hemiparesis, Paraplegia, Quadriplegia, Other disabilities Past Surgical History HEENT: DENIES HX OF: Cataract extraction, Dental surgery, Laryngectomy, Tonsillectomy, Other head surgery, Other eye surgery, Other ear surgery, Other nasal surgery, Other throat surgery Endocrine: DENIES HX OF: Parathyroidectomy, Thyroid surgery, Other endocrine surgery Respiratory: DENIES HX OF: Bronchoscopy, Lobectomy, Other chest surgery Cardiovascular: REPORTS HX OF: Angioplasty, Carotid endarterectomy, Pacemaker, Other cardiac surgery (Aortogram with right anterior tibial atherectomy), DENIES HX OF: Angiogram, CABG surgery, Coronary stent, Heart transplant, Valve replacement Gastrointestinal: REPORTS HX OF: Colectomy, total, DENIES HX OF: Appendectomy, Cholecystectomy, Colectomy, subtotal, Gastric bypass, Hernia repair, Splenectomy , Other GI surgery Genitourinary: REPORTS HX OF: Other surgery (liver biopsy 1994), DENIES HX OF: Bladder surgery, Kidney stone extraction, Nephrectomy Genitourinary - male: DENIES HX OF: Prostatectomy, TURP, Vasectomy Musculoskeletal: REPORTS HX OF: Other musculoskeletal srg (right foot transmetatarsal amputation 2010. Left below-knee amputation), DENIES HX OF: Joint replacement Integumentary: DENIES HX OF: Skin cancer removal, Other integumentary surg Neurologic: DENIES HX OF: Craniotomy, Spinal surgery, Other neurologic surgery Breast: DENIES HX OF: Breast biopsy, Lumpectomy, Mastectomy, bilateral, Mastectomy, left, Mastectomy, right, Other breast surgery Social History Smoking Status: Current Every Day Smoker Objective Vital Signs Vital Signs Date Time Temp Pulse Resp B/P (MAP) Pulse Ox O2 Delivery O2 Flow Rate FiO2 06/27/17 18:18 96 Room Air 06/27/17 16:00 72 06/27/17 12:00 97.6 73 20 123/60 (81) 98 06/27/17 12:00 60 06/27/17 08:00 62 06/27/17 08:00 97.4 63 20 105/58 (74) 98 06/27/17 04:06 61 06/27/17 04:00 Room Air 06/27/17 04:00 97.5 72 18 127/83 (98) 98 06/27/17 00:16 60 06/27/17 00:00 Room Air 06/27/17 00:00 98.8 63 19 108/66 (80) 97 Coded Allergies: Sulfa (Sulfonamide Antibiotics) (Verified Allergy, Severe, Itching, Elevated Blood Pressure, SOB, 06/23/17) sulfamethoxazole (Verified Allergy, Severe, Elevated blood pressure, Generalized itching, 06/23/17) trimethoprim (Verified Allergy, Severe, Elevated blood pressure, Generalized itching, 06/23/17) MRI PRECAUTION (Verified Adverse Reaction, Severe, PACEMAKER KD NOT REVO, 06/23/17) Ingris Hull DPM Jun 27, 2017 20:54
[2017-06-27] MEDS: ATORVASTATIN 80 MG TAB PO SCH (21:53)
[2017-06-27] MEDS ORDERED: HEPARIN-D5W 25,000 U/250 ML 250 ML IV PRN (23:00)
[2017-06-28] VITALS (18 sets, daily range): BP systolic 127–159; BP diastolic 72–95; PULSE 70–97; RESP 20; TEMP 98–98.5; O2SAT 98–99
[2017-06-28] MEDS: MORPHINE SULFATE 15 MG TAB PO SCH ×6 (01:26→21:34)
[2017-06-28] MEDS: LACTIC ACID (AMMONIUM LACTATE) 12% LOTION 225 GM BTL TOPICAL SCH ×3 (01:26→21:00)
[2017-06-28 02:42] LABS: CHOLESTEROL/ HDL RATIO 3.31 RATIO; HDL CHOLESTEROL 32.9 MG/DL (40.0-60.0)
[2017-06-28] MEDS: ISOSORBIDE MONONITRATE 30 MG TAB PO SCH (06:24)
[2017-06-28] MEDS: NITROGLYCERIN 2% OINT 1 GM PACKET TOP SCH ×5 (06:25→23:47)
[2017-06-28] MEDS: RESP: ALBUTEROL 2.5 MG/IPRATROPIUM 0.5 MG NEB (PRN) NEB (07:58)
[2017-06-28] MEDS: INSULIN ASPART SUPPLEMENTAL SCALE SQ SCH ×4 (08:00→20:45)
[2017-06-28] MEDS: INSULIN DETEMIR 100 UNITS/ML VIAL SQ SCH ×2 (09:00→20:45)
[2017-06-28] MEDS: METOPROLOL SUCCINATE 50 MG EXTENDED RELEASE TAB PO SCH (09:00)
[2017-06-28] MEDS: SODIUM CHLORIDE 0.9% FLUSH 10 ML FLUSH IV FLUSH SCH ×2 (09:00→20:44)
[2017-06-28] MEDS: DIGOXIN 0.125 MG TAB PO SCH (09:00)
[2017-06-28] MEDS: FUROSEMIDE 40 MG TAB PO SCH (09:00)
[2017-06-28] MEDS: ASPIRIN 81 MG CHEW TAB PO SCH (09:00)
--- NOTE | 2017-06-28 11:13 | HHI.PR ---
Subjective Remarks Follow-up for NSTEMI Patient sitting in bed eating his breakfast. He had no complaints. Deny any chest pain, shortness of breathing, palpitation, lightheadedness dizziness. Objective Vitals Vital Signs Date Time Temp Pulse Resp B/P (MAP) Pulse Ox O2 Delivery O2 Flow Rate FiO2 06/28/17 10:59 18 06/28/17 08:00 98 Nasal Cannula 4.00 06/28/17 06:00 96 06/28/17 05:00 70 06/28/17 04:00 70 06/28/17 03:00 74 06/28/17 03:00 98.4 78 20 127/76 (93) 99 06/28/17 02:00 78 06/28/17 01:00 78 06/28/17 00:00 86 06/27/17 23:00 66 06/27/17 23:00 97.5 79 20 118/66 (83) 99 06/27/17 22:00 78 06/27/17 21:00 76 06/27/17 20:00 97 Room Air 06/27/17 20:00 97.1 73 20 157/88 (111) 97 06/27/17 18:18 96 Room Air 06/27/17 16:00 72 06/27/17 12:00 97.6 73 20 123/60 (81) 98 06/27/17 12:00 60 I/O 06/27/17 06/27/17 06/27/17 06/28/17 06/28/17 06/28/17 07:00 15:00 23:00 07:00 15:00 23:00 Intake Total 0 ml 0 ml 480 ml Output Total 1100 ml 625 ml 775 ml Balance -1100 ml -625 ml -295 ml Intake Oral 0 ml 0 ml 480 ml Output Urine Total 1100 ml 625 ml 775 ml # Bowel Movements 1 0 Result Diagram: 06/26/17 0437 06/27/17 0730 Objective Remarks GENERAL: in NAD CARDIOVASCULAR: Regular rate and rhythm without murmurs, gallops, or rubs. RESPIRATORY: Breath sounds equal bilaterally. No accessory muscle use. GASTROINTESTINAL: Abdomen soft, non-tender, nondistended. MUSCULOSKELETAL:left BKA Medications and IVs Current Medications Sodium Chloride (NS Flush) 2 ml UNSCH PRN IVF FLUSH AFTER USING IV ACCESS; Start 06/23/17 at 09:00; Stop 06/23/17 at 12:05; Status DC Metoprolol Tartrate (Lopressor Inj) 5 mg Q5M PRN IV PUSH SBP>180, DBP>95 Last administered on 06/28/17at 07:27; Start 06/23/17 at 09:30 Aspirin (Aspirin) 325 mg ONCE ONCE PO ; Start 06/23/17 at 09:45; Stop 06/23/17 at 09:46; Status DC Heparin Sodium (Porcine) (Heparin Inj) 5,400 units ONCE ONCE IV PUSH ; Start at 09:45; Stop 06/23/17 at 09:46; Status DC Heparin Sodium (Porcine) (Heparin Inj) 5,000 units UNSCH PRN IV PUSH APTT LESS THAN 25; Start 06/23/17 at 15:45; Stop 06/27/17 at 08:00; Status DC Heparin Sodium (Porcine) (Heparin Inj) 2,500 units UNSCH PRN IV PUSH APTT 25 TO 39; Start 06/23/17 at 15:45; Stop 06/27/17 at 08:00; Status DC Heparin Sodium/ Dextrose 250 ml @ 10 mls/hr TITRATE PRN IV Coagulation Management Last administered on 06/26/17at 12:51; Start 06/23/17 at 09:45; Stop 06/27/17 at 08:00; Status DC Sodium Chloride (NS Flush) 2 ml UNSCH PRN IV FLUSH FLUSH AFTER USING IV ACCESS ; Start 06/23/17 at 11:15 Sodium Chloride (NS Flush) 2 ml BID IV FLUSH Last administered on 06/28/17at 09: 00; Start 06/23/17 at 21:00 Acetaminophen (Tylenol) 650 mg Q4H PRN PO TEMP > 100.4; Start 06/23/17 at 11:15 Ondansetron HCl (Zofran Inj) 4 mg Q6H PRN IVP NAUSEA OR VOMITING; Start at 11:15 Acetaminophen (Tylenol) 650 mg Q6H PRN PO PAIN SCALE 1 TO 2; Start 06/23/17 at 11:15 Naloxone HCl (Narcan Inj) 0.4 mg UNSCH PRN IV PUSH SEE LABEL COMMENTS; Start at 11:15 Magnesium Hydroxide (Milk Of Magnesia Liq) 30 ml Q12H PRN PO Mild constipation ; Start 06/23/17 at 11:15 Albuterol/ Ipratropium (Duoneb Neb) 1 ampule Q2HR NEB PRN NEB SOB/WHEEZING Last administered on 06/28/17at 07:58; Start 06/23/17 at 11:15 Dextrose (D50w (Vial) Inj) 50 ml UNSCH PRN IV PUSH HYPOGLYCEMIA-SEE COMMENTS; Start 06/23/17 at 11:15 Glucagon (Glucagon Inj) 1 mg UNSCH PRN OTHER HYPOGLYCEMIA-SEE COMMENTS; Start 06/23/17 at 11:15 Insulin Aspart (NovoLOG SUPPLEMENTAL SCALE) 1 ACHS SLIDING SCALE SQ Last administered on 06/27/17 21:53; Start 06/23/17 at 12:00 Aspirin (Aspirin Chew) 162 mg DAILY PO Last administered on 06/28/17at 09:00; Start 06/24/17 at 09:00 Nitroglycerin (Nitroglycerin 2% Oint) 1 inch Q6HR TOP Last administered on 06/28 06:25; Start 06/23/17 at 12:00 Hydralazine HCl (Apresoline Inj) 20 mg Q4H PRN IV PUSH SBP>160, DBP>90; Start 06/23/17 at 11:15 Phytonadione (Mephyton Liq) 5 mg ONCE ONCE PO Last administered on 06/23/17 17:43; Start 06/23/17 at 14:15; Stop 06/23/17 at 15:00; Status DC Atorvastatin Calcium (Lipitor) 80 mg HS PO Last administered on 06/27/17 21:53 ; Start 06/23/17 at 21:00 Digoxin (Lanoxin) 0.125 mg DAILY PO Last administered on 06/28/17at 09:00; Start 06/24/17 at 09:00 Furosemide (Lasix) 40 mg DAILY PO Last administered on 06/28/17 09:00; Start 06/24/17 at 09:00 Insulin Detemir (Levemir Inj) 32 units Q12HR SQ Last administered on 06/26/17at 21:49; Start 06/23/17 at 21:00 Isosorbide Mononitrate (Imdur) 30 mg DAILY@0700 PO Last administered on 1/23/ 18at 06:24; Start 06/24/17 at 07:00 Metoprolol Succinate (Toprol Xl) 25 mg DAILY PO Last administered on 06/28/17at 09:00; Start 06/24/17 at 09:00 Morphine Sulfate (Msir) 15 mg 5 TIMES A DAY PO Last administered on 06/28/17at 09:59; Start 06/23/17 at 18:00 Sodium Chloride 1,000 ml @ 84 mls/hr [id number] IV Last administered on at 23:55; Start 06/27/17 at 12:00 Lactic Acid (Lac-Hydrin 12% Lotion) 1 applic BID TOPICAL Last administered on at 09:00; Start 06/27/17 at 21:00 Heparin Sodium (Porcine) (Heparin Inj) 10,000 units STK-MED ONCE .ROUTE ; Start 06/27/17 at 16:58; Stop 06/27/17 at 16:59; Status DC Midazolam HCl (Versed Inj) 4 mg STK-MED ONCE .ROUTE Last administered on at 17:13; Start 06/27/17 at 17:03; Stop 06/27/17 at 17:04; Status DC Fentanyl Citrate (fentaNYL INJ) 100 mcg STK-MED ONCE .ROUTE Last administered on 06/27/17at 17:14; Start 06/27/17 at 17:03; Stop 06/27/17 at 17:04; Status DC Nitroglycerin 5 ml @ As Directed STK-MED ONCE .ROUTE Last administered on at 17:04; Start 06/27/17 at 17:04; Stop 06/27/17 at 17:05; Status DC Heparin Sodium/ Sodium Chloride 1,000 ml @ As Directed STK-MED ONCE .ROUTE Last administered on 06/27/17at 17:04; Start 06/27/17 at 17:04; Stop 06/27/17 at 17:05; Status DC Sodium Chloride 500 ml @ 100 mls/hr Q5H IV ; Start 06/27/17 at 18:13; Stop at 22:12; Status DC Heparin Sodium/ Dextrose 250 ml @ 10 mls/hr TITRATE PRN IV Coagulation Management; Start 06/27/17 at 23:00 Iohexol (OMNIPAQUE 350 INJ (Baton Teacher)) 100 ml STK-MED ONCE OTHER ; Start at 08:58; Stop 06/28/17 at 08:58; Status DC Iohexol (OMNIPAQUE 350 INJ (Baton Teacher)) 50 ml STK-MED ONCE OTHER ; Start at 09:07; Stop 06/28/17 at 09:07; Status DC A/P Problem List: (1) Non-ST elevation [place] (NSTEMI) ICD Code: I21.4 - Non-ST elevation (NSTEMI) myocardial infarction Status: Acute Assessment and Plan A/P: 66 years old man with 1. NSTEMI Patient on heparin drip, aspirin, statin and metoprolol. He had a heart catheterization done yesterday pending report. Per patient and MDR meeting manager party recommended cardiac bypass. 2. CHF: Chronic. Systolic. Echo 09/07/13 w/ EF 30-35%, s/p AICD No evidence of fluid overload. BNP mildly elevated @230, CXR w/ no acute findings Continue current regimen. 3. Supra Therapeutic INR Treat with Vit K 5mg PO x 1 INR now 1.7. Now on Coumadin and to sparing surgery. 4. Leukocytosis: WBC 13.3, CXR w/ no acute findings. UA negative. Clinically patient does not look like he has any infectious process. This may be due to his NSTEMI. resolved. 5. A-fib: Chronic. Resume home Digoxin/Metoprolol. INR supra therapeutic, Hold Coumadin. 6. Chronic Pain syndrome: Status post left BKA Resume home Morphine PO .Drag Seiner Consulted pending report. 7. DM: Sliding scale w/ Accu-Cheks, resume home Insulin 8. Tobacco Abuse: Ativan prn, no NicoDerm to avoid vasoconstriction. 9. DVT Prophylaxis: Heparin Discharge Planning pending [facility] consult for possible cardiac bypass. Michelle Osorio MD Jun 28, 2017 11:13
[2017-06-28] MEDS: SODIUM CHLOR 0.9% 1000 ML INJ 1,000 ML IV SCH (11:50)
[2017-06-28] MEDS ORDERED: METOPROLOL TARTRATE 25 MG TAB PO SCH (13:00)
[2017-06-28] MEDS ORDERED: DEXTROSE 50% IN WATER 50 ML VIAL(D50) IV PUSH PRN (13:00)
[2017-06-28] MEDS ORDERED: PAPAVERINE INJ 60 MG, NITROGLYCERIN INJ 100 MCG, DILTIAZEM INJ 100 MG in SODIUM CHLORID... IRRIGATION SCH (13:00)
[2017-06-28] MEDS ORDERED: INSULIN REGULAR (IV INFUSION) 100 UNITS in SODIUM CHLORIDE 0.9% INJ 99 ML IV PRN (13:00)
[2017-06-28] MEDS ORDERED: SODIUM CHLORIDE 0.9% FLUSH 10 ML FLUSH IV FLUSH PRN (13:00)
[2017-06-28] MEDS ORDERED: CEFAZOLIN INJ 500 MG in SODIUM CHLORIDE 0.9% IRR BTL 500 ML IRRIGATION SCH (13:00)
[2017-06-28] MEDS ORDERED: ceFAZolin 2 GM PREMIX 50 ML IV SCH (13:00)
[2017-06-28] MEDS ORDERED: CHLORHEXIDINE GLUCONATE 4% SOLN 120 ML BTL TOPICAL SCH (13:00)
--- NOTE | 2017-06-28 13:04 | PD.CAR.PN ---
CVT Progress Note Subjective/Hospital Course: pt seen and evaluated for coronary artery bypass grafting STS data discussed with pt , full consult to follow pt wants to talk to his brother , prior to making decision RISK SCORES About the STS Risk Calculator Procedure: CAB Only Risk of Mortality: 3.961% Morbidity or Mortality: 37.727% Long Length of Stay: 18.476% Short Length of Stay: 18.294% Permanent Stroke: 1.828% Prolonged Ventilation: 26.095% DSW Infection: 2.648% Renal Failure: 14.591% Reoperation: 10.61% Objective: Vital Signs Date Time Temp Pulse Resp B/P (MAP) Pulse Ox O2 Delivery O2 Flow Rate FiO2 06/28/17 11:42 98.0 75 20 159/76 (103) 99 06/28/17 11:42 75 06/28/17 10:59 18 06/28/17 10:00 96 06/28/17 08:00 70 06/28/17 08:00 98 Nasal Cannula 4.00 06/28/17 06:00 96 06/28/17 05:00 70 06/28/17 04:00 70 06/28/17 03:00 74 06/28/17 03:00 98.4 78 20 127/76 (93) 99 06/28/17 02:00 78 06/28/17 01:00 78 06/28/17 00:00 86 06/27/17 23:00 66 06/27/17 23:00 97.5 79 20 118/66 (83) 99 06/27/17 22:00 78 06/27/17 21:00 76 06/27/17 20:00 97 Room Air 06/27/17 20:00 97.1 73 20 157/88 (111) 97 06/27/17 18:18 96 Room Air 06/27/17 16:00 72 Result Diagram: 06/26/17 0437 06/27/17 0730 (1) Non-ST elevation [place] (NSTEMI) (2) CAD (coronary artery disease) (3) Cardiomyopathy (4) Chronic atrial fibrillation (5) Abdominal aneurysm (6) Status post below knee amputation of left lower extremity (7) CKD (chronic kidney disease) stage 3, GFR 30-59 ml/min (8) CHF (congestive heart failure) (9) DM (diabetes mellitus) (10) Chronic hepatitis C without mention of hepatic coma Problem Qualifiers (1) CAD (coronary artery disease): Qualified Codes: I25.119 - Atherosclerotic heart disease of [place] coronary artery with unspecified angina pectoris Nika Egan Jun 28, 2017 13:04
--- NOTE | 2017-06-28 14:31 | HHI.NPPN ---
Subjective General Problems: Anemia, Heart Disease, Hypertension Renal Failure: Chronic, Stage III History of Present Illness 66-year-old male with a PMH of HTN, A. fib on Coumadin, CHF (Echo 09/17/13 w/ EF 30-35%), PVD, h/o Left BKA, AICD, Hepatitis C, Cirrhosis, DM, Chronic Back Pain , CKD, and Tobacco Abuse who presented to the emergency department with complaint of an acute onset of substernal chest pain. I was called for elevated BUN and Creatinine, patient has chronic kidney disease and not following with any Telephoto Engineer. Additional Remarks Patient is alert, feeling better, not in distress. Objective Data Data Vital Signs Date Time Temp Pulse Resp B/P (MAP) Pulse Ox O2 Delivery O2 Flow Rate FiO2 06/28/17 13:27 74 06/28/17 12:00 97 06/28/17 11:42 98.0 75 20 159/76 (103) 99 06/28/17 11:42 75 06/28/17 10:59 18 06/28/17 10:00 96 06/28/17 08:00 70 06/28/17 08:00 98 Nasal Cannula 4.00 06/28/17 06:00 96 06/28/17 05:00 70 06/28/17 04:00 70 06/28/17 03:00 74 06/28/17 03:00 98.4 78 20 127/76 (93) 99 06/28/17 02:00 78 06/28/17 01:00 78 06/28/17 00:00 86 06/27/17 23:00 66 06/27/17 23:00 97.5 79 20 118/66 (83) 99 06/27/17 22:00 78 06/27/17 21:00 76 06/27/17 20:00 97 Room Air 06/27/17 20:00 97.1 73 20 157/88 (111) 97 06/27/17 18:18 96 Room Air 06/27/17 16:00 72 -: 06/26/17 0437 06/27/17 0730 Physical Exam General Appearance: No Acute Distress, Comfortable Pulmonary Resp Exam: Breath Sounds Equal, No Distress, Rhonchi, Decreased Bases Cardiology CV Exam: Regular, Normal Sinus Rhythm Gastrointestinal/Abdomen GI Exam: Soft, Non-Tender, Bowel Sounds Present, Non-Distended Extremeties Extremities Exam: Trace Edema (Rt. TMA and Left BKA.) Neurologic Neuro Exam: Alert, Awake, Oriented Psychiatric Psych Exam: Appropriate Responses Assessment/Plan Problem List: (1) Chronic kidney disease (CKD) ICD Codes: N18.9 - Chronic kidney disease, unspecified Plan: Creat at 1.59 and GFR of 44 CKD related to diabetes Potassium WNL Urine with 3 + protein Good urine output Will monitor carefully Plan for heart cath tomorrow on heparin gtt currently. Patient has stage 3 chronic kidney disease, most likely has Hypertensive, renovascular or Diabetic Nephropathy. Has risk for contrast Nephropathy about 15%. Cardiac Cath done. Awaiting Cardio Surgery consult. D/C IVF, no new BMP. Follow BMP in AM. (2) NSTEMI (non-ST elevated myocardial infarction) ICD Codes: I21.4 - Non-ST elevation (NSTEMI) myocardial infarction Plan: Chest pain is improving On heparin gtt and nitro paste BB and statin Heart cath tomororw (3) Chronic hyponatremia ICD Codes: E87.1 - Chronic hyponatremia Status: Acute Plan: Sodium 133 asymptomatic will monitor (4) DM (diabetes mellitus) ICD Codes: E11.9 - Type 2 diabetes mellitus without complications Status: Chronic Plan: BS AC and HS Insulin dependent maintain BS 140mg/dl to 180 mg/dl Problem Qualifiers (1) Chronic kidney disease (CKD): Qualified Codes: N18.3 - Chronic kidney disease, stage 3 (moderate) Jai Godinez MD Jun 28, 2017 14:31
--- NOTE | 2017-06-28 15:18 | PD.CARD.PN ---
Subjective Subjective Remarks Denies CP, mild SOB and HTN this AM Objective Medications Current Medications Medications (Trade) Dose Ordered Sig/Kelly Route Start Time Stop Time Status Last Admin (Lopressor Inj) 5 mg Q5M PRN IV PUSH 06/23/17 09:30 06/28/17 07:27 (NS Flush) 2 ml UNSCH PRN IV FLUSH 06/23/17 11:15 (NS Flush) 2 ml BID IV FLUSH 06/23/17 21:00 06/28/17 09:00 (Tylenol) 650 mg Q4H PRN PO 06/23/17 11:15 (Zofran Inj) 4 mg Q6H PRN IVP 06/23/17 11:15 (Tylenol) 650 mg Q6H PRN PO 06/23/17 11:15 (Narcan Inj) 0.4 mg UNSCH PRN IV PUSH 06/23/17 11:15 (Milk Of Magnesia Liq) 30 ml Q12H PRN PO 06/23/17 11:15 (Duoneb Neb) 1 ampule Q2HR NEB PRN NEB 06/23/17 11:15 06/28/17 07:58 (D50w (Vial) Inj) 50 ml UNSCH PRN IV PUSH 06/23/17 11:15 (Glucagon Inj) 1 mg UNSCH PRN OTHER 06/23/17 11:15 (NovoLOG SUPPLEMENTAL SCALE) 1 ACHS SLIDING SCALE SQ 06/23/17 12:00 06/27/17 21:53 (Aspirin Chew) 162 mg DAILY PO 06/24/17 09:00 06/28/17 09:00 (Nitroglycerin 2% Oint) 1 inch Q6HR TOP 06/23/17 12:00 06/28/17 12:00 (Apresoline Inj) 20 mg Q4H PRN IV PUSH 06/23/17 11:15 (Lipitor) 80 mg HS PO 06/23/17 21:00 06/27/17 21:53 (Lanoxin) 0.125 mg DAILY PO 06/24/17 09:00 06/28/17 09:00 (Lasix) 40 mg DAILY PO 06/24/17 09:00 06/28/17 09:00 (Levemir Inj) 32 units Q12HR SQ 06/23/17 21:00 06/26/17 21:49 (Imdur) 30 mg DAILY@0700 PO 06/24/17 07:00 06/28/17 06:24 (Toprol Xl) 25 mg DAILY PO 06/24/17 09:00 06/28/17 09:00 (Msir) 15 mg 5 TIMES A DAY PO 06/23/17 18:00 06/28/17 14:00 (Lac-Hydrin 12% Lotion) 1 applic BID TOPICAL 06/27/17 21:00 06/28/17 09:00 Heparin Sodium/ Dextrose 250 ml @ 10 mls/hr TITRATE PRN IV 06/27/17 23:00 Papaverine HCl 60 mg/Nitroglycerin 100 mcg/Diltiazem HCl 100 mg/Sodium Chloride 100 ml @ 0 mls/hr [employer] TECHNICIAN IRRIGATION 06/28/17 13:00 07/05/17 12:59 Cefazolin Sodium 500 mg/Sodium Chloride 505 ml @ 0 mls/hr [employer] TECHNICIAN IRRIGATION 06/28/17 13:00 07/05/17 12:59 Cefazolin Sodium/ Dextrose 50 ml @ 150 mls/hr [employer] TECHNICIAN IV 06/28/17 13:00 07/05/17 12:59 (Lopressor) 12.5 mg [employer] TECHNICIAN PO 06/28/17 13:00 07/05/17 12:59 (Hibiclens 4% Top Soln) 1 applic [employer] TECHNICIAN TOPICAL 06/28/17 13:00 07/05/17 12:59 Insulin Human Regular 100 units/ Sodium Chloride 100 ml @ 3 mls/hr TITRATE PRN IV 06/28/17 13:00 07/05/17 12:59 (D50w (Vial) Inj) 50 ml UNSCH PRN IV PUSH 06/28/17 13:00 Vital Signs / I&O Vital Signs Date Time Temp Pulse Resp B/P (MAP) Pulse Ox O2 Delivery O2 Flow Rate FiO2 06/28/17 14:31 96 06/28/17 13:27 74 06/28/17 12:00 97 06/28/17 11:42 98.0 75 20 159/76 (103) 99 06/28/17 11:42 75 06/28/17 10:59 18 06/28/17 10:00 96 06/28/17 08:00 70 06/28/17 08:00 98 Nasal Cannula 4.00 06/28/17 06:00 96 06/28/17 05:00 70 06/28/17 04:00 70 06/28/17 03:00 74 06/28/17 03:00 98.4 78 20 127/76 (93) 99 06/28/17 02:00 78 06/28/17 01:00 78 06/28/17 00:00 86 06/27/17 23:00 66 06/27/17 23:00 97.5 79 20 118/66 (83) 99 06/27/17 22:00 78 06/27/17 21:00 76 06/27/17 20:00 97 Room Air 06/27/17 20:00 97.1 73 20 157/88 (111) 97 06/27/17 18:18 96 Room Air 06/27/17 16:00 72 I/O 06/27/17 06/27/17 06/27/17 06/28/17 06/28/17 06/28/17 07:00 15:00 23:00 07:00 15:00 23:00 Intake Total 0 ml 0 ml 480 ml Output Total 1100 ml 625 ml 775 ml Balance -1100 ml -625 ml -295 ml Intake Oral 0 ml 0 ml 480 ml Output Urine Total 1100 ml 625 ml 775 ml # Bowel Movements 1 0 Physical Exam GENERAL: In NAD SKIN: Warm and dry. HEAD: Normocephalic. EYES: No scleral icterus. No injection or drainage. NECK: Supple, trachea midline. No JVD or lymphadenopathy. CARDIOVASCULAR: Irregular rate and rhythm, without murmurs, gallops, or rubs. RESPIRATORY: Breath sounds equal bilaterally. No accessory muscle use. GASTROINTESTINAL: Abdomen soft, non-tender, nondistended. MUSCULOSKELETAL: No cyanosis, mild LE edema. S/p bilat LE amputations Groin stable Assessment and Plan Problem List: (1) Non-ST elevation [place] (NSTEMI) ICD Codes: I21.4 - Non-ST elevation (NSTEMI) myocardial infarction Status: Acute (2) CAD (coronary artery disease) ICD Codes: I25.10 - Atherosclerotic heart disease of [place] coronary artery without angina pectoris Status: Chronic (3) Cardiomyopathy ICD Codes: I42.9 - Cardiomyopathy, unspecified (4) Chronic atrial fibrillation ICD Codes: I48.2 - Chronic atrial fibrillation Status: Chronic (5) Abdominal aneurysm ICD Codes: I71.4 - Abdominal aortic aneurysm Status: Acute (6) Status post below knee amputation of left lower extremity ICD Codes: Z89.512 - Acquired absence of left leg below knee Status: Acute (7) CKD (chronic kidney disease) stage 3, GFR 30-59 ml/min ICD Codes: N18.3 - Chronic kidney disease, stage 3 (moderate) Status: Chronic (8) CHF (congestive heart failure) ICD Codes: I50.9 - Heart failure, unspecified Status: Chronic (9) DM (diabetes mellitus) ICD Codes: E11.9 - Type 2 diabetes mellitus without complications Status: Chronic (10) Chronic hepatitis C without mention of hepatic coma ICD Codes: B18.2 - Chronic hepatitis C virus infection Status: Acute Assessment and Plan Cath showed severe CAD with severe 95% prox stenosis of a large LAD. Recommend CABG. Continue heparin. Dr. Atkins consulted for CT surgery. Problem Qualifiers (1) CAD (coronary artery disease): Qualified Codes: I25.119 - Atherosclerotic heart disease of [place] coronary artery with unspecified angina pectoris Nancy Rodriguez MD Jun 28, 2017 15:18
--- NOTE | 2017-06-28 15:19 | MA ---
cc: RAEANN FREGOSO DATE 06/27/2017 INDICATION FOR PROCEDURE [id number] myocardial infarction, class IV angina, congestive heart failure, cardiomyopathy with severe left ventricular systolic dysfunction, class III congestive heart failure. PROCEDURE PERFORMED 1. Retrograde left heart catheterization with left ventriculography and selective coronary angiography. 2. Left internal mammary artery angiography. 3. Moderate sedation. ACCESS SITE Right femoral artery. EQUIPMENT USED 5 [place] pigtail catheter. 5 [place] JL4 and AR modified coronary artery catheters. MEDICATION Versed IV, fentanyl IV. CONTRAST Omnipaque 60 cc. COMPLICATIONS None. ESTIMATED BLOOD LOSS Less than 10 cc. METHOD OF HEMOSTASIS Manual compression. RESULTS HEMODYNAMICS Heart rate 70 beats per minute. Left ventricular end-diastolic pressure 12 mmHg. Left ventricle 105/12. Aorta 105/57/77. LEFT VENTRICULOGRAPHY Ejection fraction 25%. Wall motion: inferoapical aneurysm, global hypokinesis. No mitral regurgitation. CORONARY ANGIOGRAPHY The left main coronary artery has 50% ostial stenosis and 40% stenosis in the distal portion. The proximal LAD has severe 95% stenosis. The mid LAD has 30% stenosis. The first diagonal artery has 80% proximal stenosis. The left circumflex artery has 40% stenosis at its ostium. A large OM has 90% ostial stenosis. Left PDA has mild disease. The right coronary artery is a co-dominant vessel with 50% stenosis in the proximal portion. The PLV and PDA are patent. DIAGNOSIS 1. Severe coronary artery disease with 95% stenosis of the proximal left circumflex artery and severe disease in a diagonal branch and a marginal branch. 2. Severe left ventricular systolic dysfunction. DISPOSITION Mr. Resendiz is found to have evidence of severe proximal stenosis of a large left anterior descending artery. He will be referred for coronary bypass for his further management. MD EULA Holloway/BEN /6:03 PM /3:02 PM LEIA
--- NOTE | 2017-06-28 16:23 | RADRPT ---
EXAM DATE/TIME: 06/28/2017 13:58 [facility] COMPARISON: No previous studies available for comparison. EXTERNAL COMPARISON : US CAROTID ARTERIES, July 01, 2010 INDICATIONS : PreOp Cardiac Surgery. MEDICAL HISTORY : Hypercholesterolemia. Chronic pain syndrome. Neuropathy. CHF. Cardiomypathy. CAD. Peripheral vasc ular disease. A.FIB. Hypertension. Dyspnea. GERD. Renal diease. Diabetes. HEP C. Cirrhosis. MRSA. SURGICAL HISTORY : Tonsillectomy. Abdominal aortic aneurysm repair. Carotid endarterectomy. Angioplasty. Pacemaker. Liver BX. Right foot transmetatarsal amputation. Left below the knee amputation. ENCOUNTER: Initial ACUITY: 1 day PAIN SCORE: 0/10 LOCATION: Bilateral neck PEAK SYSTOLIC VELOCITIES (cm/sec): ICA/CCA RATIO: Right: 0.8 Left: 0.7 ICA: Right: 65 Left: 95 CCA: Right: 84 Left: 133 ECA: Right: 136 Left: 172 VERTEBRAL: Right: 32 antegrade Left: 95 antegrade Elevated flow velocities and ICA/CCA ratios have been found to correlate with increased degrees of vessel stenosis, calculated as percentage of diameter relative to a normal segment of distal ICA/CCA FINDINGS: RIGHT CAROTID: No significant stenosis is visualized. The waveforms are within normal limits. LEFT CAROTID: No significant stenosis is visualized. The waveforms are within normal limits. VERTEBRAL ARTERIES: Antegrade flow is seen in both vertebral arteries. MISCELLANEOUS: None. CONCLUSION: 1. Calcified plaque near both carotid bifurcations but without hemodynamically significant stenosis. Vertebral artery flow antegrade. Stewart Cordoba MD on June 28, 2017 at 16:20 Board Certified Radiologist. This report was verified electronically.
--- NOTE | 2017-06-28 16:24 | RADRPT ---
EXAM DATE/TIME: 06/28/2017 14:16 [facility] COMPARISON: No previous studies available for comparison. INDICATIONS : PreOp Cardiac Surgery. MEDICAL HISTORY : Hypercholesterolemia. Chronic pain syndrome. Neuropathy. CHF. Cardiomypathy. CAD. Peripheral vascul ar disease. A.FIB. Hypertension. Dyspnea. GERD. Renal diease. Diabetes. HEP C. Cirrhosis. MRSA. SURGICAL HISTORY : Tonsillectomy. Abdominal aortic aneurysm repair. Carotid endarterectomy. Angioplasty. Pacemaker. Live r BX. Right foot transmetatarsal amputation. Left below the knee amputation. ENCOUNTER: Initial ACUITY: 1 day PAIN SCORE: 0/10 LOCATION: Bilateral leg. TECHNIQUE: Venous ultrasound of the left and right leg was performed from the inguinal ligament to the proximal calf. Real-time, color Doppler and spectral tracing, compression and augmentation techniques were us ed. FINDINGS: RIGHT LEG: There is normal compressibility of the deep venous system from the inguinal region to the proximal ca lf. No echogenic clot is seen in the lumen of the common femoral, femoral, popliteal, and posterior tibial veins. There is a normal response of the venous system to proximal and distal augmentation an d respiration. LEFT LEG: There is normal compressibility of the deep venous system from the inguinal region to the proximal ca lf. No echogenic clot is seen in the lumen of the common femoral, femoral, popliteal, and posterior tibial veins. There is a normal response of the venous system to proximal and distal augmentation an d respiration. CONCLUSION: 1. Negative for deep venous thrombosis. Stewart Cordoba MD on June 28, 2017 at 16:21 Board Certified Radiologist. This report was verified electronically.
--- NOTE | 2017-06-28 16:55 | RADRPT ---
EXAM DATE/TIME: 06/28/2017 14:28 [place] COMPARISON: No previous studies available for comparison. INDICATIONS : PreOp Cardiac Surgery. MEDICAL HISTORY : Hypercholesterolemia. Chronic pain syndrome. Neuropathy. CHF. Cardiomypathy. CAD. Peripheral vascul ar disease. A.FIB. Hypertension. Dyspnea. GERD. Renal diease. Diabetes. HEP C. Cirrhosis. MRSA. SURGICAL HISTORY : Tonsillectomy. Abdominal aortic aneurysm repair. Carotid endarterectomy. Angioplasty. Pacemaker. Li felicitas BX. Right foot transmetatarsal amputation. Left below the knee amputation. ENCOUNTER: Initial ACUITY: 1 day PAIN SCORE: 0/10 LOCATION: Bilateral leg. GREATER SAPHENOUS VEIN THIGH: PROXIMAL: Right 4 mm Left 5 mm MID: Right 3 mm Left 3 mm DISTAL: Right 4 mm Left 5 mm CALF: PROXIMAL: Right 4 mm Left 3 mm MID: Right 3 mm Left Non-visualized DISTAL: Right 4 mm Left Non-visualized FINDINGS: The venous system of the lower extremities are patent by color Doppler imaging. Measurements of the leg veins (in mm) are listed above. CONCLUSION: 1. Lower extremity venous mapping, as above. Lauro Thompson MD on June 28, 2017 at 16:44 Board Certified Radiologist. This report was verified electronically.
--- NOTE | 2017-06-28 17:11 | MB ---
cc: KALYANI ATKINS DINESH MD DATE OF CONSULTATION: 06/28/2017 HISTORY OF PRESENT ILLNESS: The patient is a 66 year-old male, patient of Dr. Del Toro, Dr. Di Dutton, presented to the emergency room with substernal chest pain on 06/23/2017, also with some shortness of breath, was noted to be severely hypertensive with a systolic blood pressure close to 200. He has an extensive cardiac background. 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 Troponin was 1.98 pounds. The patient underwent cardiac cath by Dr. Rodriguez for [id number] DC, showed an ejection fraction of 25%, 50% left ostial lesion, 95% proximal LAD. The diagonal had an 80% stenosis in the proximal lesion, the circ was 40%. The OM 90%. The RCA 50%. He also underwent 2-D echocardiogram, that showed an EF of 45%. He had some mild right atrial dilation, mild mitral valve regurgitation, tricuspid regurgitation. We were consulted to evaluate for coronary artery bypass grafting. The patient has an extensive history to include chronic atrial fibrillation on Coumadin therapy, hypertension, congestive heart failure with prior EF of 30-35, now his EF per cath was 25%. He has an ICD placement on the left upper chest, diabetes mellitus, chronic back pain. He has had a femoral aortic aneurysm. He has had history of hepatitis C, liver cirrhosis, chronic back pain. Peripheral arterial disease. PAST SURGICAL HISTORY: 1. ICD placement. 2. Left pijas-rzc-muil amputation. 3. Amputation of the right forefoot. 4. Right carotid endarterectomy. 5. Liver biopsy. 6. Abdominal aortic aneurysm repair. ALLERGIES [facility]ACTR[facility] HOME MEDICATIONS: 1. Coumadin. 2. Digoxin. 3. Atorvastatin. 4. Imdur. 5. Metoprolol. 6. Morphine sulfate. 7. Lasix. 8. Levemir. FAMILY HISTORY Mother at 76 with history of diabetes, coronary artery disease, prior coronary artery bypass graft, breast cancer. SOCIAL HISTORY The patient lives alone, does have a brother nearby. Positive for tobacco use for the past 45 years. Last cigarette was on last fragment. History of some IV drug use back in 1994. History of occasional marijuana. REVIEW OF SYSTEMS: GENERAL: No night sweats, fever, heat and cold intolerance. Skin: No psoriasis, itching or hives. HEENT: No blurred vision, hearing loss. Respiratory: Some shortness of breath. Cardiovascular: As above in HPI. Gastrointestinal: No diarrhea, vomiting. Genitourinary: No burning frequency, urgency. FOREIGN LAW CONSULTANT: No history of TIA, CVA, seizure disorder. Endocrinology: Positive for diabetes. No hypothyroidism. PHYSICAL EXAMINATION: VITAL SIGNS: Blood pressure 160/70, heart rate 75, afebrile. O2 sat 99 on room air. GENERAL: Patient is awake, alert in no acute distress. Head: Head is normocephalic, atraumatic. Pupils equal and reactive. Oral mucosa pink, moist. Neck: Supple no JVD. Heart: Heart sounds S1-S2, irregular rate and rhythm. No audible rubs or gallops. Lungs: Diminished in the bases, otherwise clear to auscultation. Abdomen: Obese, soft, nontender. No masses or organomegaly. Extremities: He also has left below-knee amputation. The stump is well-healed. There are no ulcers or lesions. He has a right forefoot amputation where the stump is also well-healed. He has a heel ulcer, however, which is being followed by podiatry. LABORATORY WORK: Hemoglobin 12, hematocrit of 36, white cell count of 10, platelet count 186, sodium 133, potassium 3.9, BUN of 30, creatinine 1.63 baseline when he came in was 1.5. Glucose 140. Troponin greater than 40. Triglycerides 162. Cholesterol 109. LDL 44. EKG: As above. IMPRESSION This is a 66-year-old patient of Dr. Del Toro, who presented with non STEMI. Cardiac catheterization by Dr. Rodriguez with multiple vessel disease, ejection fraction of 25%. At this time the cardiac films have been reviewed by Dr. Nohemy Atkins. The procedures, alternatives and risks have been discussed with the patient. At this time he wants to speak directly with his brother concerning pending possible surgery and will get back to us but we tentatively have him scheduled for Tuesday. He will need extensive rehab postoperative because of his hldqn-vob-jukq amputation and with physical therapy, PT and OT. Dictated by: LETICIA Garcia Kalyani H. Atkins, MD CHM/DANA /3:41 PM /7:54 AM
[2017-06-28] MEDS: ATORVASTATIN 80 MG TAB PO SCH (20:45)
[2017-06-28] MEDS ORDERED: SODIUM CHLORIDE 0.9% FLUSH 10 ML FLUSH IV FLUSH SCH (21:00)
--- NOTE | 2017-06-28 21:46 | PD.CONS ---
History of Present Illness Service Podiatry Consult Requested By Reason for Consult Right foot ulcers Primary Care Physician Di Dutton D.O. Diagnoses: History of Present Illness Patient of Dr Farhat Gregorio, long history of surgeries and treatment per Dr Gregorio. Patient relates history of wound to plantar Right residual foot. History of BKA left lower extremity. He states he has been putting amlactin cream on the right residual foot wound. Past Family Social History Allergies: Coded Allergies: Sulfa (Sulfonamide Antibiotics) (Verified Allergy, Severe, Itching, Elevated Blood Pressure, SOB, 06/23/17) sulfamethoxazole (Verified Allergy, Severe, Elevated blood pressure, Generalized itching, 06/23/17) trimethoprim (Verified Allergy, Severe, Elevated blood pressure, Generalized itching, 06/23/17) MRI PRECAUTION (Verified Adverse Reaction, Severe, PACEMAKER KD NOT REVO, 06/23/17) Past Medical History Atrial fibrillation HTN CHF DM Back pain Femoral aortic aneurysn Hep C, Cirrhosis PAD Past Surgical History ICD placement. Left [id number]-yrlp amputation. Amputation of the right forefoot. Right carotid endarterectomy. Liver biopsy. Abdominal aortic aneurysm repair. Active Ordered Medications Current Medications Medications (Trade) Dose Ordered Sig/Kelly Route Start Time Stop Time Status Last Admin (Lopressor Inj) 5 mg Q5M PRN IV PUSH 06/23/17 09:30 06/28/17 07:27 (NS Flush) 2 ml UNSCH PRN IV FLUSH 06/23/17 11:15 (NS Flush) 2 ml BID IV FLUSH 06/23/17 21:00 06/28/17 20:44 (Tylenol) 650 mg Q4H PRN PO 06/23/17 11:15 (Zofran Inj) 4 mg Q6H PRN IVP 06/23/17 11:15 (Tylenol) 650 mg Q6H PRN PO 06/23/17 11:15 (Narcan Inj) 0.4 mg UNSCH PRN IV PUSH 06/23/17 11:15 (Milk Of Magnesia Liq) 30 ml Q12H PRN PO 06/23/17 11:15 (Duoneb Neb) 1 ampule Q2HR NEB PRN NEB 06/23/17 11:15 06/28/17 07:58 (D50w (Vial) Inj) 50 ml UNSCH PRN IV PUSH 06/23/17 11:15 (Glucagon Inj) 1 mg UNSCH PRN OTHER 06/23/17 11:15 (NovoLOG SUPPLEMENTAL SCALE) 1 ACHS SLIDING SCALE SQ 06/23/17 12:00 06/28/17 20:45 (Aspirin Chew) 162 mg DAILY PO 06/24/17 09:00 06/28/17 09:00 (Nitroglycerin 2% Oint) 1 inch Q6HR TOP 06/23/17 12:00 06/28/17 18:00 (Apresoline Inj) 20 mg Q4H PRN IV PUSH 06/23/17 11:15 (Lipitor) 80 mg HS PO 06/23/17 21:00 06/28/17 20:45 (Lanoxin) 0.125 mg DAILY PO 06/24/17 09:00 06/28/17 09:00 (Lasix) 40 mg DAILY PO 06/24/17 09:00 06/28/17 09:00 (Levemir Inj) 32 units Q12HR SQ 06/23/17 21:00 06/26/17 21:49 (Imdur) 30 mg DAILY@0700 PO 06/24/17 07:00 06/28/17 06:24 (Toprol Xl) 25 mg DAILY PO 06/24/17 09:00 06/28/17 09:00 (Msir) 15 mg 5 TIMES A DAY PO 06/23/17 18:00 06/28/17 21:34 (Lac-Hydrin 12% Lotion) 1 applic BID TOPICAL 06/27/17 21:00 06/28/17 09:00 Heparin Sodium/ Dextrose 250 ml @ 10 mls/hr TITRATE PRN IV 06/27/17 23:00 Papaverine HCl 60 mg/Nitroglycerin 100 mcg/Diltiazem HCl 100 mg/Sodium Chloride 100 ml @ 0 mls/hr DOOR FRAMER IRRIGATION 06/28/17 13:00 07/05/17 12:59 Cefazolin Sodium 500 mg/Sodium Chloride 505 ml @ 0 mls/hr DOOR FRAMER IRRIGATION 06/28/17 13:00 07/05/17 12:59 Cefazolin Sodium/ Dextrose 50 ml @ 150 mls/hr DOOR FRAMER IV 06/28/17 13:00 07/05/17 12:59 (Lopressor) 12.5 mg DOOR FRAMER PO 06/28/17 13:00 07/05/17 12:59 (Hibiclens 4% Top Soln) 1 applic DOOR FRAMER TOPICAL 06/28/17 13:00 07/05/17 12:59 Insulin Human Regular 100 units/ Sodium Chloride 100 ml @ 3 mls/hr TITRATE PRN IV 06/28/17 13:00 07/05/17 12:59 (D50w (Vial) Inj) 50 ml UNSCH PRN IV PUSH 06/28/17 13:00 Family History Mother at 76 with history of diabetes, coronary artery disease, prior coronary artery bypass graft, breast cancer. Social History The patient lives alone. Positive for tobacco use for the past 45 years. History of some IV drug use back in 1994. History of occasional marijuana. Physical Exam Vital Signs Vital Signs Date Time Temp Pulse Resp B/P (MAP) Pulse Ox O2 Delivery O2 Flow Rate FiO2 06/28/17 18:00 96 06/28/17 17:00 77 06/28/17 15:00 98.4 78 20 130/72 (91) 99 06/28/17 15:00 20 06/28/17 14:31 96 06/28/17 13:27 74 06/28/17 12:00 97 06/28/17 11:42 98.0 75 20 159/76 (103) 99 06/28/17 11:42 75 06/28/17 10:00 96 06/28/17 08:00 70 06/28/17 08:00 98 Nasal Cannula 4.00 06/28/17 06:00 96 06/28/17 05:00 70 06/28/17 04:00 70 06/28/17 03:00 74 06/28/17 03:00 98.4 78 20 127/76 (93) 99 06/28/17 02:00 78 06/28/17 01:00 78 06/28/17 00:00 86 06/27/17 23:00 66 06/27/17 23:00 97.5 79 20 118/66 (83) 99 06/27/17 22:00 78 Physical Exam Right foot with history of healed transmetatarsal amputation. There is small 0.7cm diameter full-thickness plantar lateral heel ulceration, 70% fibrotic with mild hyperkeratotic rim. No erythema, No purulence. No pain. No sign of infection. There is another small 0.7cm diameter eschar noted distal to previously mentioned ulceration. No erythema, No purulence. No pain. No sign of infection. Result Diagram: 06/26/17 0437 06/27/17 0730 Imaging Last 72 hours Impressions Lower Extremity Ultrasound 06/28/17 0000 Signed Impressions: Service Date/Time: Wednesday, June 28, 2017 14:28 - CONCLUSION: 1. Lower extremity venous mapping, as above. Lauro Thompson MD Lower Extremity Ultrasound 06/28/17 0000 Signed Impressions: Service Date/Time: Wednesday, June 28, 2017 14:16 - CONCLUSION: 1. Negative for deep venous thrombosis. Stewart Cordoba MD Carotid Artery Ultrasound 06/28/17 0000 Signed Impressions: Service Date/Time: Wednesday, June 28, 2017 13:58 - CONCLUSION: 1. Calcified plaque near both carotid bifurcations but without hemodynamically significant stenosis. Vertebral artery flow antegrade. Stewart Cordoba MD Assessment and Plan Assessment and Plan Ulcer R residual foot, stable Continue local wound care Recommend follow up with Dr Gregorio, as patient has relationship with him already for ongoing care. Reconsult if any new issues arise. Ingris Hull DPM Jun 28, 2017 21:45
[2017-06-29] VITALS (23 sets, daily range): BP systolic 113–152; BP diastolic 64–91; PULSE 58–94; RESP 16–22; TEMP 97.5–98.3; O2SAT 97–100
[2017-06-29] MEDS: NITROGLYCERIN 2% OINT 1 GM PACKET TOP SCH ×3 (06:16→17:07)
[2017-06-29] MEDS: ISOSORBIDE MONONITRATE 30 MG TAB PO SCH (06:16)
[2017-06-29] MEDS: MORPHINE SULFATE 15 MG TAB PO SCH ×5 (06:17→21:37)
[2017-06-29 06:40] LABS: HEMATOCRIT 34.7 % (39.0-51.0); MEAN CELL VOLUME 92.4 FL (80.0-100.0); MEAN CORPUSCULAR HEMOGLOBIN 31.9 PG (27.0-34.0); MEAN CORPUSCULAR HGB CONC 34.5 % (32.0-36.0); MEAN PLATELET VOLUME 8.3 FL (7.0-11.0); PLATELET COUNT 160 TH/MM3 (150-450); RED BLOOD COUNT 3.76 MIL/MM3 (4.50-5.90); RED CELL DISTRIBUTION WIDTH 16.1 % (11.6-17.2); WHITE BLOOD COUNT 10.6 TH/MM3 (4.0-11.0)
[2017-06-29 06:45] LABS: BICARBONATE 25.9 MEQ/L (21.0-32.0); CALCIUM 8.3 MG/DL (8.5-10.1); CREATININE 1.56 MG/DL (0.60-1.30)
[2017-06-29] MEDS: DIGOXIN 0.125 MG TAB PO SCH (08:14)
[2017-06-29] MEDS: SODIUM CHLORIDE 0.9% FLUSH 10 ML FLUSH IV FLUSH SCH ×2 (08:14→21:26)
[2017-06-29] MEDS: INSULIN ASPART SUPPLEMENTAL SCALE SQ SCH ×4 (08:14→21:00)
[2017-06-29] MEDS: FUROSEMIDE 40 MG TAB PO SCH (08:14)
[2017-06-29] MEDS: ASPIRIN 81 MG CHEW TAB PO SCH (08:14)
[2017-06-29] MEDS: METOPROLOL SUCCINATE 50 MG EXTENDED RELEASE TAB PO SCH (08:15)
[2017-06-29] MEDS: INSULIN DETEMIR 100 UNITS/ML VIAL SQ SCH ×2 (08:15→21:00)
[2017-06-29] MEDS: COLLAGENASE OINT 30 GM TUBE TOPICAL SCH (09:00)
[2017-06-29] MEDS: LACTIC ACID (AMMONIUM LACTATE) 12% LOTION 225 GM BTL TOPICAL SCH ×2 (09:00→21:00)
--- NOTE | 2017-06-29 10:58 | PD.CAR.PN ---
CVT Progress Note Subjective/Hospital Course: 66 year-old male, patient of Dr. Del Toro, Dr. Di Dutton, presented to the emergency room with substernal chest pain on 06/23/2017, also with some shortness of breath, was noted to be severely hypertensive with a systolic blood pressure close to 200. He has an extensive cardiac background. 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 Troponin was 1.98 pounds. The patient underwent cardiac cath by for [id number] NV, showed an ejection fraction of 25%, 50% left ostial lesion, 95% proximal LAD. The diagonal had an 80% stenosis in the proximal lesion, the circ was 40%. The OM 90%. The RCA 50%. He also underwent 2-D echocardiogram, that showed an EF of 45%. He had some mild right atrial dilation, mild mitral valve regurgitation, tricuspid regurgitation. We were consulted to evaluate for coronary artery bypass grafting. PMH: chronic atrial fibrillation on Coumadin, hypertension, congestive heart failure with prior EF of 30-35, EF per cath was 25%. He has an ICD placement on the left upper chest, diabetes mellitus, chronic back pain. HX femoral aortic aneurysm, hepatitis C, liver cirrhosis, chronic back pain, Peripheral arterial disease. PAST SURGICAL HISTORY: ICD placement, Left qgdpx-phk-dqzu amputation, Amputation of the right forefoot, Right carotid endarterectomy, Liver biopsy, Abdominal aortic aneurysm repair. 06/29 pt spoke to his brother, now is agreeable to proceed with surgery , which is scheduled for Tuesday carotid US : unremarkable vein mapping reviewed Objective: GENERAL: A&O x 3 SKIN: Warm and dry. left BKA, l : Right foot with history of healed transmetatarsal amputation. There is small 0.7cm diameter full-thickness plantar lateral heel ulceration, 70% fibrotic with mild hyperkeratotic rim. No erythema, No purulence. No pain. No sign of infection. There is another small 0.7cm diameter eschar noted distal to previously mentioned ulceration. No erythema, No purulence. No pain. No sign of infection. HEAD: Normocephalic. EYES: No scleral icterus. No injection or drainage. NECK: Supple, trachea midline. No JVD or lymphadenopathy. CARDIOVASCULAR: Regular rate and rhythm without murmurs, gallops, or rubs. RESPIRATORY: Breath sounds equal bilaterally. No accessory muscle use. GASTROINTESTINAL: Abdomen soft, non-tender, nondistended. MUSCULOSKELETAL: No cyanosis, or edema. BACK: Nontender without obvious deformity. No CVA tenderness. Vital Signs Date Time Temp Pulse Resp B/P (MAP) Pulse Ox O2 Delivery O2 Flow Rate FiO2 06/29/17 10:19 20 06/29/17 10:00 68 06/29/17 09:00 70 06/29/17 08:00 97.5 62 20 113/64 (80) 100 06/29/17 08:00 100 Nasal Cannula 2.00 06/29/17 08:00 70 06/29/17 07:00 70 06/29/17 05:00 63 06/29/17 04:00 64 06/29/17 04:00 98.2 64 16 123/66 (85) 97 06/29/17 04:00 Nasal Cannula 2.00 06/29/17 03:00 63 06/29/17 02:00 62 06/29/17 00:00 100 Nasal Cannula 3.00 06/29/17 00:00 98.3 68 16 118/66 (83) 100 06/29/17 00:00 62 06/28/17 22:00 90 06/28/17 20:00 98.5 76 20 146/95 (112) 98 06/28/17 20:00 98 Nasal Cannula 3.00 06/28/17 20:00 76 06/28/17 18:00 96 06/28/17 17:00 77 06/28/17 15:00 98.4 78 20 130/72 (91) 99 06/28/17 14:31 96 06/28/17 13:27 74 06/28/17 12:00 97 06/28/17 11:42 98.0 75 20 159/76 (103) 99 06/28/17 11:42 75 Labs: Laboratory Tests Test 06/29/17 05:20 06/29/17 05:26 White Blood Count 10.6 TH/MM3 (4.0-11.0) Red Blood Count 3.76 MIL/MM3 (4.50-5.90) Hemoglobin 12.0 GM/DL (13.0-17.0) Hematocrit 34.7 % (39.0-51.0) Mean Corpuscular Volume 92.4 FL (80.0-100.0) Mean Corpuscular Hemoglobin 31.9 PG (27.0-34.0) Mean Corpuscular Hemoglobin Concent 34.5 % (32.0-36.0) Red Cell Distribution Width 16.1 % (11.6-17.2) Platelet Count 160 TH/MM3 (150-450) Mean Platelet Volume 8.3 FL (7.0-11.0) Blood Urea Nitrogen 30 MG/DL (7-18) Creatinine 1.56 MG/DL (0.60-1.30) Random Glucose 155 MG/DL (74-106) Calcium Level 8.3 MG/DL (8.5-10.1) Sodium Level 135 MEQ/L (136-145) Potassium Level 4.5 MEQ/L (3.5-5.1) Chloride Level 101 MEQ/L (98-107) Carbon Dioxide Level 25.9 MEQ/L (21.0-32.0) Anion Gap 8 MEQ/L (5-15) Estimat Glomerular Filtration Rate 45 ML/MIN (>89) Result Diagram: 06/29/17 0520 06/29/17 05 Telemetry: NSR (1) Non-ST elevation NV (NSTEMI) Plan: ASA, statin , BB (2) CAD (coronary artery disease) (3) Cardiomyopathy Plan: check Dig level in am (4) Chronic atrial fibrillation Plan: resume Coumadin post surgery (5) Abdominal aneurysm (6) Status post below knee amputation of left lower extremity (7) CKD (chronic kidney disease) stage 3, GFR 30-59 ml/min Plan: creatinine 1.59 (8) CHF (congestive heart failure) (9) DM (diabetes mellitus) Plan: Diabetic diet , insulin SS (10) Chronic hepatitis C without mention of hepatic coma Problem Qualifiers (1) CAD (coronary artery disease): Qualified Codes: I25.119 - Atherosclerotic heart disease of [place] coronary artery with unspecified angina pectoris Nika Egan Jun 29, 2017 10:58
--- NOTE | 2017-06-29 11:45 | HHI.NPPN ---
Subjective General Problems: Anemia, Heart Disease, Hypertension Renal Failure: Chronic, Stage III History of Present Illness 66-year-old male with a PMH of HTN, A. fib on Coumadin, CHF (Echo 09/17/13 w/ EF 30-35%), PVD, h/o Left BKA, AICD, Hepatitis C, Cirrhosis, DM, Chronic Back Pain , CKD, and Tobacco Abuse who presented to the emergency department with complaint of an acute onset of substernal chest pain. I was called for elevated BUN and Creatinine, patient has chronic kidney disease and not following with any Geology Teacher. Additional Remarks Patient is alert, no SOB, no chest pain. Objective Data Data 06/29/17 06/30/17 19:00 07:00 Output Total 250 ml Balance -250 ml Output Urine Total 250 ml Vital Signs Date Time Temp Pulse Resp B/P (MAP) Pulse Ox O2 Delivery O2 Flow Rate FiO2 06/29/17 10:57 20 06/29/17 10:00 68 06/29/17 09:00 70 06/29/17 08:00 97.5 62 20 113/64 (80) 100 06/29/17 08:00 100 Nasal Cannula 2.00 06/29/17 08:00 70 06/29/17 07:00 70 06/29/17 05:00 63 06/29/17 04:00 64 06/29/17 04:00 98.2 64 16 123/66 (85) 97 06/29/17 04:00 Nasal Cannula 2.00 06/29/17 03:00 63 06/29/17 02:00 62 06/29/17 00:00 100 Nasal Cannula 3.00 06/29/17 00:00 98.3 68 16 118/66 (83) 100 06/29/17 00:00 62 06/28/17 22:00 90 06/28/17 20:00 98.5 76 20 146/95 (112) 98 06/28/17 20:00 98 Nasal Cannula 3.00 06/28/17 20:00 76 06/28/17 18:00 96 06/28/17 17:00 77 06/28/17 15:00 98.4 78 20 130/72 (91) 99 06/28/17 14:31 96 06/28/17 13:27 74 06/28/17 12:00 97 -: 06/29/17 0520 06/29/17 0526 Physical Exam General Appearance: No Acute Distress, Comfortable Pulmonary Resp Exam: Breath Sounds Equal, No Distress, Rhonchi, Decreased Bases Cardiology CV Exam: Regular, Normal Sinus Rhythm Gastrointestinal/Abdomen GI Exam: Soft, Non-Tender, Bowel Sounds Present, Non-Distended Extremeties Extremities Exam: Trace Edema (Rt. TMA and Left BKA.) Neurologic Neuro Exam: Alert, Awake, Oriented Psychiatric Psych Exam: Appropriate Responses Assessment/Plan Problem List: (1) Chronic kidney disease (CKD) ICD Codes: N18.9 - Chronic kidney disease, unspecified Plan: Creat at 1.59 and GFR of 44 CKD related to diabetes Potassium WNL Urine with 3 + protein Good urine output Will monitor carefully. Patient has stage 3 chronic kidney disease, most likely has Hypertensive, renovascular or Diabetic Nephropathy. Cardiac Cath done. Seen by Cardiac Surgery, for CABG possibly on Tuesday. Creatinine is stable. Risk of FRANCISCO with Surgery discussed with the patient. (2) NSTEMI (non-ST elevated myocardial infarction) ICD Codes: I21.4 - Non-ST elevation (NSTEMI) myocardial infarction Plan: Chest pain is improving On heparin gtt and nitro paste BB and statin Heart cath tomororw (3) Chronic hyponatremia ICD Codes: E87.1 - Chronic hyponatremia Status: Acute Plan: Sodium 133 asymptomatic will monitor (4) DM (diabetes mellitus) ICD Codes: E11.9 - Type 2 diabetes mellitus without complications Status: Chronic Plan: BS AC and HS Insulin dependent maintain BS 140mg/dl to 180 mg/dl Problem Qualifiers (1) Chronic kidney disease (CKD): Qualified Codes: N18.3 - Chronic kidney disease, stage 3 (moderate) Jai Godinez MD Jun 29, 2017 11:45
--- NOTE | 2017-06-29 12:15 | HHI.PR ---
Subjective Remarks Follow-up for NSTEMI Patient denies any chest pain, shortness of breathing, palpitation, lightheadedness or dizziness. He stated that he called Dr. Atkins office this morning to let them know that he does want the procedure done, but he has not received a call back yet. He has no other complaints. Objective Vitals Vital Signs Date Time Temp Pulse Resp B/P (MAP) Pulse Ox O2 Delivery O2 Flow Rate FiO2 06/29/17 11:00 62 06/29/17 11:00 97.8 58 20 133/68 (89) 100 06/29/17 10:57 20 06/29/17 10:00 68 06/29/17 09:00 70 06/29/17 08:00 97.5 62 20 113/64 (80) 100 06/29/17 08:00 100 Nasal Cannula 2.00 06/29/17 08:00 70 06/29/17 07:00 70 06/29/17 05:00 63 06/29/17 04:00 64 06/29/17 04:00 98.2 64 16 123/66 (85) 97 06/29/17 04:00 Nasal Cannula 2.00 06/29/17 03:00 63 06/29/17 02:00 62 06/29/17 00:00 100 Nasal Cannula 3.00 06/29/17 00:00 98.3 68 16 118/66 (83) 100 06/29/17 00:00 62 06/28/17 22:00 90 06/28/17 20:00 98.5 76 20 146/95 (112) 98 06/28/17 20:00 98 Nasal Cannula 3.00 06/28/17 20:00 76 06/28/17 18:00 96 06/28/17 17:00 77 06/28/17 15:00 98.4 78 20 130/72 (91) 99 06/28/17 14:31 96 06/28/17 13:27 74 I/O 06/28/17 06/28/17 06/28/17 06/29/17 06/29/17 06/29/17 07:00 15:00 23:00 07:00 15:00 23:00 Intake Total 480 ml 600 ml 480 ml Output Total 775 ml 1250 ml 200 ml 250 ml Balance -295 ml -650 ml 280 ml -250 ml Intake Oral 480 ml 600 ml 480 ml Output Urine Total 775 ml 1250 ml 200 ml 250 ml # Bowel Movements 1 0 Result Diagram: 06/29/17 0506/29/17 05 Objective Remarks GENERAL: in NAD CARDIOVASCULAR: Regular rate and rhythm without murmurs, gallops, or rubs. RESPIRATORY: Breath sounds equal bilaterally. No accessory muscle use. GASTROINTESTINAL: Abdomen soft, non-tender, nondistended. MUSCULOSKELETAL:left BKA with right foot amputation Medications and IVs Current Medications Sodium Chloride (NS Flush) 2 ml UNSCH PRN IVF FLUSH AFTER USING IV ACCESS; Start 06/23/17 at 09:00; Stop 06/23/17 at 12:05; Status DC Metoprolol Tartrate (Lopressor Inj) 5 mg Q5M PRN IV PUSH SBP>180, DBP>95 Last administered on 06/28/17at 07:27; Start 06/23/17 at 09:30 Aspirin (Aspirin) 325 mg ONCE ONCE PO ; Start 06/23/17 at 09:45; Stop 06/23/17 at 09:46; Status DC Heparin Sodium (Porcine) (Heparin Inj) 5,400 units ONCE ONCE IV PUSH ; Start at 09:45; Stop 06/23/17 at 09:46; Status DC Heparin Sodium (Porcine) (Heparin Inj) 5,000 units UNSCH PRN IV PUSH APTT LESS THAN 25; Start 06/23/17 at 15:45; Stop 06/27/17 at 08:00; Status DC Heparin Sodium (Porcine) (Heparin Inj) 2,500 units UNSCH PRN IV PUSH APTT 25 TO 39; Start 06/23/17 at 15:45; Stop 06/27/17 at 08:00; Status DC Heparin Sodium/ Dextrose 250 ml @ 10 mls/hr TITRATE PRN IV Coagulation Management Last administered on 06/26/17at 12:51; Start 06/23/17 at 09:45; Stop 06/27/17 at 08:00; Status DC Sodium Chloride (NS Flush) 2 ml UNSCH PRN IV FLUSH FLUSH AFTER USING IV ACCESS ; Start 06/23/17 at 11:15 Sodium Chloride (NS Flush) 2 ml BID IV FLUSH Last administered on 06/29/17at 08: 14; Start 06/23/17 at 21:00 Acetaminophen (Tylenol) 650 mg Q4H PRN PO TEMP > 100.4; Start 06/23/17 at 11:15 Ondansetron HCl (Zofran Inj) 4 mg Q6H PRN IVP NAUSEA OR VOMITING; Start at 11:15 Acetaminophen (Tylenol) 650 mg Q6H PRN PO PAIN SCALE 1 TO 2; Start 06/23/17 at 11:15 Naloxone HCl (Narcan Inj) 0.4 mg UNSCH PRN IV PUSH SEE LABEL COMMENTS; Start at 11:15 Magnesium Hydroxide (Milk Of Magnesia Liq) 30 ml Q12H PRN PO Mild constipation ; Start 06/23/17 at 11:15 Albuterol/ Ipratropium (Duoneb Neb) 1 ampule Q2HR NEB PRN NEB SOB/WHEEZING Last administered on 06/28/17at 07:58; Start 06/23/17 at 11:15 Dextrose (D50w (Vial) Inj) 50 ml UNSCH PRN IV PUSH HYPOGLYCEMIA-SEE COMMENTS; Start 06/23/17 at 11:15 Glucagon (Glucagon Inj) 1 mg UNSCH PRN OTHER HYPOGLYCEMIA-SEE COMMENTS; Start 06/23/17 at 11:15 Insulin Aspart (NovoLOG SUPPLEMENTAL SCALE) 1 ACHS SLIDING SCALE SQ Last administered on 06/29/17at 12:12; Start 06/23/17 at 12:00 Aspirin (Aspirin Chew) 162 mg DAILY PO Last administered on 06/29/17at 08:14; Start 06/24/17 at 09:00 Nitroglycerin (Nitroglycerin 2% Oint) 1 inch Q6HR TOP Last administered on 06/29at 12:12; Start 06/23/17 at 12:00 Hydralazine HCl (Apresoline Inj) 20 mg Q4H PRN IV PUSH SBP>160, DBP>90; Start 06/23/17 at 11:15 Phytonadione (Mephyton Liq) 5 mg ONCE ONCE PO Last administered on 06/23/17at 17:43; Start 06/23/17 at 14:15; Stop 06/23/17 at 15:00; Status DC Atorvastatin Calcium (Lipitor) 80 mg HS PO Last administered on 06/28/17at 20:45 ; Start 06/23/17 at 21:00 Digoxin (Lanoxin) 0.125 mg DAILY PO Last administered on 06/29/17 08:14; Start 06/24/17 at 09:00 Furosemide (Lasix) 40 mg DAILY PO Last administered on 06/29/17at 08:14; Start 06/24/17 at 09:00 Insulin Detemir (Levemir Inj) 32 units Q12HR SQ Last administered on 06/26/17at 21:49; Start 06/23/17 at 21:00 Isosorbide Mononitrate (Imdur) 30 mg DAILY@0700 PO Last administered on 06:16; Start 06/24/17 at 07:00 Metoprolol Succinate (Toprol Xl) 25 mg DAILY PO Last administered on 06/29/17 08:15; Start 06/24/17 at 09:00 Morphine Sulfate (Msir) 15 mg 5 TIMES A DAY PO Last administered on 06/29/17 09:57; Start 06/23/17 at 18:00 Sodium Chloride 1,000 ml @ 84 mls/hr [id number] IV Last administered on at 11:50; Start 06/27/17 at 12:00; Stop 06/28/17 at 14:30; Status DC Lactic Acid (Lac-Hydrin 12% Lotion) 1 applic BID TOPICAL Last administered on at 09:00; Start 06/27/17 at 21:00 Heparin Sodium (Porcine) (Heparin Inj) 10,000 units STK-MED ONCE .ROUTE ; Start 06/27/17 at 16:58; Stop 06/27/17 at 16:59; Status DC Midazolam HCl (Versed Inj) 4 mg STK-MED ONCE .ROUTE Last administered on at 17:13; Start 06/27/17 at 17:03; Stop 06/27/17 at 17:04; Status DC Fentanyl Citrate (fentaNYL INJ) 100 mcg STK-MED ONCE .ROUTE Last administered on 06/27/17at 17:14; Start 06/27/17 at 17:03; Stop 06/27/17 at 17:04; Status DC Nitroglycerin 5 ml @ As Directed STK-MED ONCE .ROUTE Last administered on at 17:04; Start 06/27/17 at 17:04; Stop 06/27/17 at 17:05; Status DC Heparin Sodium/ Sodium Chloride 1,000 ml @ As Directed STK-MED ONCE .ROUTE Last administered on 06/27/17at 17:04; Start 06/27/17 at 17:04; Stop 06/27/17 at 17:05; Status DC Sodium Chloride 500 ml @ 100 mls/hr Q5H IV ; Start 06/27/17 at 18:13; Stop at 22:12; Status DC Heparin Sodium/ Dextrose 250 ml @ 10 mls/hr TITRATE PRN IV Coagulation Management; Start 06/27/17 at 23:00 Iohexol (OMNIPAQUE 350 INJ (Correspondence Specialist)) 100 ml STK-MED ONCE OTHER ; Start at 08:58; Stop 06/28/17 at 08:58; Status DC Iohexol (OMNIPAQUE 350 INJ (Correspondence Specialist)) 50 ml STK-MED ONCE OTHER ; Start at 09:07; Stop 06/28/17 at 09:07; Status DC Sodium Chloride (NS Flush) 2 ml BID IV FLUSH ; Start 06/28/17 at 21:00; Stop at 21:00; Status DC Sodium Chloride (NS Flush) 2 ml UNSCH PRN IV FLUSH FLUSH AFTER USING IV ACCESS ; Start 06/28/17 at 13:00; Stop 06/28/17 at 13:56; Status DC Papaverine HCl 60 mg/Nitroglycerin 100 mcg/Diltiazem HCl 100 mg/Sodium Chloride 100 ml @ 0 mls/hr SKIN CARE THERAPIST IRRIGATION ; Start 06/28/17 at 13:00; Stop 07/05/17 at 12:59 Cefazolin Sodium 500 mg/Sodium Chloride 505 ml @ 0 mls/hr SKIN CARE THERAPIST IRRIGATION ; Start 06/28/17 at 13:00; Stop 07/05/17 at 12:59 Cefazolin Sodium/ Dextrose 50 ml @ 150 mls/hr SKIN CARE THERAPIST IV ; Start 06/28/17 at 13:00; Stop 07/05/17 at 12:59 Metoprolol Tartrate (Lopressor) 12.5 mg SKIN CARE THERAPIST PO ; Start 06/28/17 at 13:00; Stop 07/05/17 at 12:59 Chlorhexidine Gluconate (Hibiclens 4% Top Soln) 1 applic SKIN CARE THERAPIST TOPICAL ; Start 06/28/17 at 13:00; Stop 07/05/17 at 12:59 Insulin Human Regular 100 units/ Sodium Chloride 100 ml @ 3 mls/hr TITRATE PRN IV for blood glucose control; Start 06/28/17 at 13:00; Stop 07/05/17 at 12:59 Dextrose (D50w (Vial) Inj) 50 ml UNSCH PRN IV PUSH HYPOGLYCEMIA-SEE COMMENTS; Start 06/28/17 at 13:00 Collagenase (Santyl Oint) 1 applic DAILY TOPICAL Last administered on at 09:00; Start 06/29/17 at 09:00 A/P Problem List: (1) Non-ST elevation [place] (NSTEMI) ICD Code: I21.4 - Non-ST elevation (NSTEMI) myocardial infarction Status: Acute Assessment and Plan 66 years old man with 1. NSTEMI Patient on heparin drip, aspirin, statin and metoprolol. He had a heart catheterization done on 06/28 showing severe CAD with severe 95 % prox stenosis of a large LAD. CVS consulted for cardiac bypass. Patient now wants to pursue with surgery. He is scheduled for Tuesday. 2. CHF: Chronic. Systolic. Echo 09/07/13 w/ EF 30-35%, s/p AICD No evidence of fluid overload. BNP mildly elevated @230, CXR w/ no acute findings Continue current regimen. 3. Supra Therapeutic INR Treat with Vit K 5mg PO x 1 INR now 1.7. Now on Coumadin and to sparing surgery. 4. Leukocytosis: WBC 13.3, CXR w/ no acute findings. UA negative. Clinically patient does not look like he has any infectious process. This may be due to his NSTEMI. resolved. 5. A-fib: Chronic. Resume home Digoxin/Metoprolol. INR supra therapeutic, Hold Coumadin. Patient on heparin drip. 6. 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 7. DM: Sliding scale w/ Accu-Cheks, resume home Insulin 8. Tobacco Abuse: Ativan prn, no NicoDerm to avoid vasoconstriction. 9. DVT Prophylaxis: Heparin Discharge Planning Patient scheduled for cardiac bypass on Tuesday. Michelle sOorio MD Jun 29, 2017 12:15
--- NOTE | 2017-06-29 15:52 | OTSOAPIP ---
TIME SESSION COMPLETED: 1540 TREATMENT TIME: 0 MINS. CHART REVIEWED. O: ATTEMPTED TO SEE HOWEVER WITH PHYSICIAN. WILL FOLLOW NEXT DAY Therapist: ROSA REILLY OT/L Signature on file
--- NOTE | 2017-06-29 17:31 | PD.CARD.PN ---
Subjective Subjective Remarks No CP or excessive dyspnea Objective Medications Current Medications Medications (Trade) Dose Ordered Sig/Kelly Route Start Time Stop Time Status Last Admin (Lopressor Inj) 5 mg Q5M PRN IV PUSH 06/23/17 09:30 06/28/17 07:27 (NS Flush) 2 ml UNSCH PRN IV FLUSH 06/23/17 11:15 (NS Flush) 2 ml BID IV FLUSH 06/23/17 21:00 06/29/17 08:14 (Tylenol) 650 mg Q4H PRN PO 06/23/17 11:15 (Zofran Inj) 4 mg Q6H PRN IVP 06/23/17 11:15 (Tylenol) 650 mg Q6H PRN PO 06/23/17 11:15 (Narcan Inj) 0.4 mg UNSCH PRN IV PUSH 06/23/17 11:15 (Milk Of Magnesia Liq) 30 ml Q12H PRN PO 06/23/17 11:15 (Duoneb Neb) 1 ampule Q2HR NEB PRN NEB 06/23/17 11:15 06/28/17 07:58 (D50w (Vial) Inj) 50 ml UNSCH PRN IV PUSH 06/23/17 11:15 (Glucagon Inj) 1 mg UNSCH PRN OTHER 06/23/17 11:15 (NovoLOG SUPPLEMENTAL SCALE) 1 ACHS SLIDING SCALE SQ 06/23/17 12:00 06/29/17 17:07 (Aspirin Chew) 162 mg DAILY PO 06/24/17 09:00 06/29/17 08:14 (Nitroglycerin 2% Oint) 1 inch Q6HR TOP 06/23/17 12:00 06/29/17 17:07 (Apresoline Inj) 20 mg Q4H PRN IV PUSH 06/23/17 11:15 (Lipitor) 80 mg HS PO 06/23/17 21:00 06/28/17 20:45 (Lanoxin) 0.125 mg DAILY PO 06/24/17 09:00 06/29/17 08:14 (Lasix) 40 mg DAILY PO 06/24/17 09:00 06/29/17 08:14 (Levemir Inj) 32 units Q12HR SQ 06/23/17 21:00 06/26/17 21:49 (Imdur) 30 mg DAILY@0700 PO 06/24/17 07:00 06/29/17 06:16 (Toprol Xl) 25 mg DAILY PO 06/24/17 09:00 06/29/17 08:15 (Msir) 15 mg 5 TIMES A DAY PO 06/23/17 18:00 06/29/17 17:07 (Lac-Hydrin 12% Lotion) 1 applic BID TOPICAL 06/27/17 21:00 06/29/17 09:00 Heparin Sodium/ Dextrose 250 ml @ 10 mls/hr TITRATE PRN IV 06/27/17 23:00 Papaverine HCl 60 mg/Nitroglycerin 100 mcg/Diltiazem HCl 100 mg/Sodium Chloride 100 ml @ 0 mls/hr CARRIER DRIVER IRRIGATION 06/28/17 13:00 07/05/17 12:59 Cefazolin Sodium 500 mg/Sodium Chloride 505 ml @ 0 mls/hr CARRIER DRIVER IRRIGATION 06/28/17 13:00 07/05/17 12:59 Cefazolin Sodium/ Dextrose 50 ml @ 150 mls/hr CARRIER DRIVER IV 06/28/17 13:00 07/05/17 12:59 (Lopressor) 12.5 mg CARRIER DRIVER PO 06/28/17 13:00 07/05/17 12:59 (Hibiclens 4% Top Soln) 1 applic CARRIER DRIVER TOPICAL 06/28/17 13:00 07/05/17 12:59 Insulin Human Regular 100 units/ Sodium Chloride 100 ml @ 3 mls/hr TITRATE PRN IV 06/28/17 13:00 07/05/17 12:59 (D50w (Vial) Inj) 50 ml UNSCH PRN IV PUSH 06/28/17 13:00 (Santyl Oint) 1 applic DAILY TOPICAL 06/29/17 09:00 06/29/17 09:00 Vital Signs / I&O Vital Signs Date Time Temp Pulse Resp B/P (MAP) Pulse Ox O2 Delivery O2 Flow Rate FiO2 06/29/17 14:00 62 06/29/17 13:45 100 2.00 06/29/17 13:00 66 06/29/17 12:00 64 06/29/17 11:00 62 06/29/17 11:00 97.8 58 20 133/68 (89) 100 06/29/17 10:57 20 06/29/17 10:00 68 06/29/17 09:00 70 06/29/17 08:00 97.5 62 20 113/64 (80) 100 06/29/17 08:00 100 Nasal Cannula 2.00 06/29/17 08:00 70 06/29/17 07:00 70 06/29/17 05:00 63 06/29/17 04:00 64 06/29/17 04:00 98.2 64 16 123/66 (85) 97 06/29/17 04:00 Nasal Cannula 2.00 06/29/17 03:00 63 06/29/17 02:00 62 06/29/17 00:00 100 Nasal Cannula 3.00 06/29/17 00:00 98.3 68 16 118/66 (83) 100 06/29/17 00:00 62 06/28/17 22:00 90 06/28/17 20:00 98.5 76 20 146/95 (112) 98 06/28/17 20:00 98 Nasal Cannula 3.00 06/28/17 20:00 76 06/28/17 18:00 96 I/O 06/28/17 06/28/17 06/28/17 06/29/17 06/29/17 06/29/17 07:00 15:00 23:00 07:00 15:00 23:00 Intake Total 480 ml 600 ml 480 ml Output Total 775 ml 1250 ml 200 ml 250 ml Balance -295 ml -650 ml 280 ml -250 ml Intake Oral 480 ml 600 ml 480 ml Output Urine Total 775 ml 1250 ml 200 ml 250 ml # Bowel Movements 1 0 Physical Exam GENERAL: In NAD SKIN: Warm and dry. HEAD: Normocephalic. EYES: No scleral icterus. No injection or drainage. NECK: Supple, trachea midline. No JVD or lymphadenopathy. CARDIOVASCULAR: Irregular rate and rhythm, without murmurs, gallops, or rubs. RESPIRATORY: Breath sounds equal bilaterally. No accessory muscle use. GASTROINTESTINAL: Abdomen soft, non-tender, nondistended. MUSCULOSKELETAL: No cyanosis, mild LE edema. S/p bilat LE amputations Groin stable Laboratory Laboratory Tests Test 06/29/17 05:20 06/29/17 05:26 White Blood Count 10.6 TH/MM3 Red Blood Count 3.76 MIL/MM3 Hemoglobin 12.0 GM/DL Hematocrit 34.7 % Mean Corpuscular Volume 92.4 FL Mean Corpuscular Hemoglobin 31.9 PG Mean Corpuscular Hemoglobin Concent 34.5 % Red Cell Distribution Width 16.1 % Platelet Count 160 TH/MM3 Mean Platelet Volume 8.3 FL Blood Urea Nitrogen 30 MG/DL Creatinine 1.56 MG/DL Random Glucose 155 MG/DL Calcium Level 8.3 MG/DL Sodium Level 135 MEQ/L Potassium Level 4.5 MEQ/L Chloride Level 101 MEQ/L Carbon Dioxide Level 25.9 MEQ/L Anion Gap 8 MEQ/L Estimat Glomerular Filtration Rate 45 ML/MIN Assessment and Plan Problem List: (1) Non-ST elevation [place] (NSTEMI) ICD Codes: I21.4 - Non-ST elevation (NSTEMI) myocardial infarction Status: Acute (2) CAD (coronary artery disease) ICD Codes: I25.10 - Atherosclerotic heart disease of [place] coronary artery without angina pectoris Status: Chronic (3) Cardiomyopathy ICD Codes: I42.9 - Cardiomyopathy, unspecified (4) Chronic atrial fibrillation ICD Codes: I48.2 - Chronic atrial fibrillation Status: Chronic (5) Abdominal aneurysm ICD Codes: I71.4 - Abdominal aortic aneurysm Status: Acute (6) Status post below knee amputation of left lower extremity ICD Codes: Z89.512 - Acquired absence of left leg below knee Status: Acute (7) CKD (chronic kidney disease) stage 3, GFR 30-59 ml/min ICD Codes: N18.3 - Chronic kidney disease, stage 3 (moderate) Status: Chronic (8) CHF (congestive heart failure) ICD Codes: I50.9 - Heart failure, unspecified Status: Chronic (9) DM (diabetes mellitus) ICD Codes: E11.9 - Type 2 diabetes mellitus without complications Status: Chronic (10) Chronic hepatitis C without mention of hepatic coma ICD Codes: B18.2 - Chronic hepatitis C virus infection Status: Acute Assessment and Plan No angina or CHF exacerbation. Cath showed severe CAD with severe 95% prox stenosis of a large LAD. Continue heparin. CABG tentatively on Tue. Problem Qualifiers (1) CAD (coronary artery disease): Qualified Codes: I25.119 - Atherosclerotic heart disease of [place] coronary artery with unspecified angina pectoris Nancy Rodriguez MD Jun 29, 2017 17:31
[2017-06-29] MEDS: ATORVASTATIN 80 MG TAB PO SCH (21:26)
[2017-06-30] VITALS (27 sets, daily range): BP systolic 124–151; BP diastolic 72–90; PULSE 56–89; RESP 16–18; TEMP 97.4–98.3; O2SAT 96–100
[2017-06-30] MEDS: NITROGLYCERIN 2% OINT 1 GM PACKET TOP SCH ×5 (01:21→22:00)
[2017-06-30] MEDS: MORPHINE SULFATE 15 MG TAB PO SCH ×5 (06:03→22:21)
[2017-06-30] MEDS: RESP: ALBUTEROL 2.5 MG/IPRATROPIUM 0.5 MG NEB (PRN) NEB (06:15)
[2017-06-30 06:48] LABS: AUTOMATED NEUTROPHIL # 7.1 TH/MM3 (1.8-7.7); BASOPHIL # 0.1 TH/MM3 (0-0.2); BASOPHIL % 0.9 % (0.0-2.0); EOSINOPHIL # 0.3 TH/MM3 (0-0.4); EOSINOPHIL % 2.9 % (0.0-4.0); HEMOGLOBIN 11.9 GM/DL (13.0-17.0); LYMPH % 16.1 % (9.0-44.0); LYMPHOCYTE # 1.6 TH/MM3 (1.0-4.8); MEAN CELL VOLUME 91.4 FL (80.0-100.0); MEAN CORPUSCULAR HEMOGLOBIN 32.1 PG (27.0-34.0); MEAN CORPUSCULAR HGB CONC 35.1 % (32.0-36.0); MEAN PLATELET VOLUME 8.4 FL (7.0-11.0); MONO % 8.9 % (0.0-8.0); MONOCYTE # 0.9 TH/MM3 (0-0.9); NEUT % 71.2 % (16.0-70.0); PLATELET COUNT 157 TH/MM3 (150-450); RED BLOOD COUNT 3.72 MIL/MM3 (4.50-5.90); RED CELL DISTRIBUTION WIDTH 15.7 % (11.6-17.2)
[2017-06-30 07:09] LABS: ALBUMIN 2.9 GM/DL (3.4-5.0); AST (GOT) 28 U/L (15-37); BICARBONATE 25.1 MEQ/L (21.0-32.0); BLOOD UREA NITROGEN 35 MG/DL (7-18); CALCIUM 8.6 MG/DL (8.5-10.1); CHLORIDE 99 MEQ/L (98-107); CREATININE 1.66 MG/DL (0.60-1.30); GLOMERULAR FILTRATION RATE 42 ML/MIN (>89); GLUCOSE,RANDOM 188 MG/DL (74-106); SODIUM (NA) 131 MEQ/L (136-145)
[2017-06-30 07:11] LABS: ALT (GPT) 26 U/L (12-78)
[2017-06-30 07:24] LABS: ALKALINE PHOSPHATASE 106 U/L (45-117); DIGOXIN 0.6 NG/ML (0.8-2.0); TOTAL BILIRUBIN ADULT 1.2 MG/DL (0.2-1.0); TOTAL PROTEIN 7.9 GM/DL (6.4-8.2)
[2017-06-30] MEDS: INSULIN DETEMIR 100 UNITS/ML VIAL SQ SCH ×2 (09:00→21:00)
[2017-06-30] MEDS: LACTIC ACID (AMMONIUM LACTATE) 12% LOTION 225 GM BTL TOPICAL SCH ×2 (09:00→21:55)
[2017-06-30 09:37] LABS: BANDS 7 % (0-6); BASOPHILS 1 % (0-2); LYMPHOCYTES 12 % (9-44); MONOCYTES 6 % (0-8); NEUTROPHIL # MANUAL DIFF 7.6 TH/MM3 (1.8-7.7); POLYS (SEG NEUTROPHILS) 69 % (16-70)
[2017-06-30] MEDS: DIGOXIN 0.125 MG TAB PO SCH (10:02)
[2017-06-30] MEDS: METOPROLOL SUCCINATE 50 MG EXTENDED RELEASE TAB PO SCH (10:02)
[2017-06-30] MEDS: ISOSORBIDE MONONITRATE 30 MG TAB PO SCH (10:02)
[2017-06-30] MEDS: ASPIRIN 81 MG CHEW TAB PO SCH (10:03)
[2017-06-30] MEDS: SODIUM CHLORIDE 0.9% FLUSH 10 ML FLUSH IV FLUSH SCH ×2 (10:03→21:57)
[2017-06-30] MEDS: FUROSEMIDE 40 MG TAB PO SCH (10:03)
[2017-06-30] MEDS: COLLAGENASE OINT 30 GM TUBE TOPICAL SCH (10:04)
[2017-06-30] MEDS: INSULIN ASPART SUPPLEMENTAL SCALE SQ SCH ×4 (10:06→21:54)
--- NOTE | 2017-06-30 10:20 | HHI.NPPN ---
Subjective General Problems: Anemia, Heart Disease, Hypertension Renal Failure: Chronic, Stage III History of Present Illness 66-year-old male with a PMH of HTN, A. fib on Coumadin, CHF (Echo 09/17/13 w/ EF 30-35%), PVD, h/o Left BKA, AICD, Hepatitis C, Cirrhosis, DM, Chronic Back Pain , CKD, and Tobacco Abuse who presented to the emergency department with complaint of an acute onset of substernal chest pain. I was called for elevated BUN and Creatinine, patient has chronic kidney disease and not following with any Revenue Liaison. Additional Remarks Patient is alert, no SOB, mild intermittent chest pain. (Corinne Vizcaino) Additional Remarks no chest pain now, sitting on the chair. (Jai Godinez MD) Review of Systems Respiratory Respiratory Remarks Denies SOB (Corinne Vizcaino) Cardiovascular Cardiac: Chest Pain (Corinne Vizcaino) Gastrointestinal Gastrointestinal: Heartburn GI Remarks denies Abdominal pain (Corinne Vizcaino) Genitourinary Remarks denies dysuria (Corinne Vizcaino) Objective Data Data 06/30/17 07/01/17 19:00 07:00 Intake Total 360 ml Balance 360 ml Intake Oral 360 ml # Voids 3 # Bowel Movements 0 Vital Signs Date Time Temp Pulse Resp B/P (MAP) Pulse Ox O2 Delivery O2 Flow Rate FiO2 06/30/17 09:54 14 06/30/17 09:00 73 06/30/17 08:21 98 Nasal Cannula 2.00 06/30/17 08:00 79 06/30/17 07:00 77 06/30/17 07:00 Nasal Cannula 3.00 06/30/17 07:00 97.4 73 18 137/81 (99) 100 06/30/17 06:15 96 Nasal Cannula 3.00 06/30/17 06:10 149/90 (109) 06/30/17 06:00 62 06/30/17 05:00 68 06/30/17 04:10 100 Nasal Cannula 2.00 06/30/17 04:10 97.9 80 18 137/80 (99) 100 06/30/17 04:00 59 06/30/17 03:00 72 06/30/17 02:00 60 06/30/17 01:00 60 06/30/17 00:00 97 Nasal Cannula 2.00 06/30/17 00:00 97.8 73 18 124/76 (92) 97 06/29/17 23:57 68 06/29/17 23:00 62 06/29/17 22:00 60 06/29/17 21:20 99 Nasal Cannula 2.00 06/29/17 21:00 62 06/29/17 20:00 94 06/29/17 20:00 97.9 68 18 117/67 (84) 99 06/29/17 19:37 61 06/29/17 18:00 84 06/29/17 17:00 76 06/29/17 15:00 98.0 65 22 152/91 (111) 100 06/29/17 14:00 62 06/29/17 13:45 100 2.00 06/29/17 13:00 66 06/29/17 12:00 64 06/29/17 11:00 62 06/29/17 11:00 97.8 58 20 133/68 (89) 100 (Corinne Vizcaino) -: 06/30/17 0601 06/30/17 0601 Imaging Last Impressions Lower Extremity Ultrasound 06/28/17 0000 Signed Impressions: Service Date/Time: Wednesday, June 28, 2017 14:28 - CONCLUSION: 1. Lower extremity venous mapping, as above. Lauro Thompson MD Carotid Artery Ultrasound 06/28/17 0000 Signed Impressions: Service Date/Time: Wednesday, June 28, 2017 13:58 - CONCLUSION: 1. Calcified plaque near both carotid bifurcations but without hemodynamically significant stenosis. Vertebral artery flow antegrade. Stewart Cordoba MD Chest X-Ray 06/23/17 0846 Signed Impressions: Service Date/Time: June 09:04 - CONCLUSION: Normal examination. Left subclavian pacemaker in good position. John Elizalde MD (Corinne Vizcaino) Physical Exam General Appearance: No Acute Distress, Comfortable (Corinne Vizcaino) Pulmonary Resp Exam: Breath Sounds Equal, No Distress, Rhonchi, Decreased Bases (Corinne Vizcaino) Cardiology CV Exam: Regular, Normal Sinus Rhythm (Corinne Vizcaino) Gastrointestinal/Abdomen GI Exam: Soft, Non-Tender, Bowel Sounds Present, Non-Distended (Corinne Vizcaino) Extremeties Extremities Exam: Trace Edema (Rt. TMA and Left BKA.) Extremeties Remarks right leg amputation (Corinne Vizcaino) Neurologic Neuro Exam: Alert, Awake, Oriented (Corinne Vizcaino) Psychiatric Psych Exam: Appropriate Responses (Corinne Vizcaino) Assessment/Plan Problem List: (1) Chronic kidney disease (CKD) ICD Codes: N18.9 - Chronic kidney disease, unspecified Plan: Patient has stage 3 chronic kidney disease, most likely has Hypertensive, renovascular or Diabetic Nephropathy. Potassium WNL Urine with 3 + protein continues to have good urine output Will monitor carefully. Cardiac Cath done. Seen by Cardiac Surgery, for CABG possibly on Tuesday. Creatinine is stable. Risk of FRANCISCO with Surgery discussed with the patient. (2) NSTEMI (non-ST elevated myocardial infarction) ICD Codes: I21.4 - Non-ST elevation (NSTEMI) myocardial infarction Plan: Chest pain is improving BB and statin Tentative surgery for tomorrow (3) Chronic hyponatremia ICD Codes: E87.1 - Chronic hyponatremia Status: Acute Plan: Sodium 133 asymptomatic will monitor (4) DM (diabetes mellitus) ICD Codes: E11.9 - Type 2 diabetes mellitus without complications Status: Chronic Plan: BS AC and HS Insulin dependent maintain BS 140mg/dl to 180 mg/dl (Corinne Vizcaino) Problem List: (1) Chronic kidney disease (CKD) ICD Codes: N18.9 - Chronic kidney disease, unspecified Plan: Patient has stage 3 chronic kidney disease, most likely has Hypertensive, renovascular or Diabetic Nephropathy. Potassium WNL Urine with 3 + protein continues to have good urine output Will monitor carefully. Cardiac Cath done. Seen by Cardiac Surgery, for CABG possibly on Tuesday. Creatinine is stable, 1.5-1.6, at his baseline. Risk of FRANCISCO with Surgery discussed with the patient. (2) NSTEMI (non-ST elevated myocardial infarction) ICD Codes: I21.4 - Non-ST elevation (NSTEMI) myocardial infarction Plan: Chest pain is improving BB and statin Tentative surgery for tomorrow (3) Chronic hyponatremia ICD Codes: E87.1 - Chronic hyponatremia Status: Acute Plan: Sodium 133 asymptomatic will monitor (4) DM (diabetes mellitus) ICD Codes: E11.9 - Type 2 diabetes mellitus without complications Status: Chronic Plan: BS AC and HS Insulin dependent maintain BS 140mg/dl to 180 mg/dl (Jai Godinez MD) Problem Qualifiers (1) Chronic kidney disease (CKD): Qualified Codes: N18.3 - Chronic kidney disease, stage 3 (moderate) Corinne Vizcaino Jun 30, 2017 10:20 Jai Godinez MD Jun 30, 2017 16:05
--- NOTE | 2017-06-30 13:53 | PD.CARD.PN ---
Subjective Subjective Remarks No CP or excessive dyspnea, c/o constipation Objective Medications Current Medications Medications (Trade) Dose Ordered Sig/Kelly Route Start Time Stop Time Status Last Admin (Lopressor Inj) 5 mg Q5M PRN IV PUSH 06/23/17 09:30 06/28/17 07:27 (NS Flush) 2 ml UNSCH PRN IV FLUSH 06/23/17 11:15 (NS Flush) 2 ml BID IV FLUSH 06/23/17 21:00 06/30/17 10:03 (Tylenol) 650 mg Q4H PRN PO 06/23/17 11:15 (Zofran Inj) 4 mg Q6H PRN IVP 06/23/17 11:15 (Tylenol) 650 mg Q6H PRN PO 06/23/17 11:15 (Narcan Inj) 0.4 mg UNSCH PRN IV PUSH 06/23/17 11:15 (Milk Of Magnesia Liq) 30 ml Q12H PRN PO 06/23/17 11:15 06/30/17 13:48 (Duoneb Neb) 1 ampule Q2HR NEB PRN NEB 06/23/17 11:15 06/30/17 06:15 (D50w (Vial) Inj) 50 ml UNSCH PRN IV PUSH 06/23/17 11:15 (Glucagon Inj) 1 mg UNSCH PRN OTHER 06/23/17 11:15 (NovoLOG SUPPLEMENTAL SCALE) 1 ACHS SLIDING SCALE SQ 06/23/17 12:00 06/30/17 12:33 (Aspirin Chew) 162 mg DAILY PO 06/24/17 09:00 06/30/17 10:03 (Nitroglycerin 2% Oint) 1 inch Q6HR TOP 06/23/17 12:00 06/30/17 06:02 (Apresoline Inj) 20 mg Q4H PRN IV PUSH 06/23/17 11:15 (Lipitor) 80 mg HS PO 06/23/17 21:00 06/29/17 21:26 (Lanoxin) 0.125 mg DAILY PO 06/24/17 09:00 06/30/17 10:02 (Lasix) 40 mg DAILY PO 06/24/17 09:00 06/30/17 10:03 (Levemir Inj) 32 units Q12HR SQ 06/23/17 21:00 06/26/17 21:49 (Imdur) 30 mg DAILY@0700 PO 06/24/17 07:00 06/30/17 10:02 (Toprol Xl) 25 mg DAILY PO 06/24/17 09:00 06/30/17 10:02 (Msir) 15 mg 5 TIMES A DAY PO 06/23/17 18:00 06/30/17 13:48 (Lac-Hydrin 12% Lotion) 1 applic BID TOPICAL 06/27/17 21:00 06/29/17 09:00 Heparin Sodium/ Dextrose 250 ml @ 10 mls/hr TITRATE PRN IV 06/27/17 23:00 Papaverine HCl 60 mg/Nitroglycerin 100 mcg/Diltiazem HCl 100 mg/Sodium Chloride 100 ml @ 0 mls/hr F[employer]IT[employer]ISHER IRRIGATION 06/28/17 13:00 07/05/17 12:59 Cefazolin Sodium 500 mg/Sodium Chloride 505 ml @ 0 mls/hr F[employer]ER IRRIGATION 06/28/17 13:00 07/05/17 12:59 Cefazolin Sodium/ Dextrose 50 ml @ 150 mls/hr FURNITURE FINISHER IV 06/28/17 13:00 07/05/17 12:59 (Lopressor) 12.5 mg FURNITURE FINISHER PO 06/28/17 13:00 07/05/17 12:59 (Hibiclens 4% Top Soln) 1 applic FURNITURE FINISHER TOPICAL 06/28/17 13:00 07/05/17 12:59 Insulin Human Regular 100 units/ Sodium Chloride 100 ml @ 3 mls/hr TITRATE PRN IV 06/28/17 13:00 07/05/17 12:59 (D50w (Vial) Inj) 50 ml UNSCH PRN IV PUSH 06/28/17 13:00 (Santyl Oint) 1 applic DAILY TOPICAL 06/29/17 09:00 06/30/17 10:04 Vital Signs / I&O Vital Signs Date Time Temp Pulse Resp B/P (MAP) Pulse Ox O2 Delivery O2 Flow Rate FiO2 06/30/17 13:00 77 06/30/17 12:33 14 06/30/17 12:12 84 06/30/17 12:12 97.9 79 18 144/72 (96) 96 06/30/17 10:00 89 06/30/17 09:00 73 06/30/17 08:21 98 Nasal Cannula 2.00 06/30/17 08:00 79 06/30/17 07:00 77 06/30/17 07:00 Nasal Cannula 3.00 06/30/17 07:00 97.4 73 18 137/81 (99) 100 06/30/17 06:15 96 Nasal Cannula 3.00 06/30/17 06:10 149/90 (109) 06/30/17 06:00 62 06/30/17 05:00 68 06/30/17 04:10 100 Nasal Cannula 2.00 06/30/17 04:10 97.9 80 18 137/80 (99) 100 06/30/17 04:00 59 06/30/17 03:00 72 06/30/17 02:00 60 06/30/17 01:00 60 06/30/17 00:00 97 Nasal Cannula 2.00 06/30/17 00:00 97.8 73 18 124/76 (92) 97 06/29/17 23:57 68 06/29/17 23:00 62 06/29/17 22:00 60 06/29/17 21:20 99 Nasal Cannula 2.00 06/29/17 21:00 62 06/29/17 20:00 94 06/29/17 20:00 97.9 68 18 117/67 (84) 99 06/29/17 19:37 61 06/29/17 18:00 84 06/29/17 17:00 76 06/29/17 15:00 98.0 65 22 152/91 (111) 100 06/29/17 14:00 62 I/O 06/29/17 06/29/17 06/29/17 06/30/17 06/30/17 06/30/17 07:00 15:00 23:00 07:00 15:00 23:00 Intake Total 480 ml 480 ml 360 ml Output Total 200 ml 250 ml 450 ml Balance 280 ml -250 ml 30 ml 360 ml Intake Oral 480 ml 480 ml 360 ml Output Urine Total 200 ml 250 ml 450 ml # Voids 3 # Bowel Movements 0 0 Physical Exam GENERAL: In NAD SKIN: Warm and dry. HEAD: Normocephalic. EYES: No scleral icterus. No injection or drainage. NECK: Supple, trachea midline. No JVD or lymphadenopathy. CARDIOVASCULAR: Irregular rate and rhythm, without murmurs, gallops, or rubs. RESPIRATORY: Breath sounds equal bilaterally. No accessory muscle use. GASTROINTESTINAL: Abdomen soft, non-tender, nondistended. MUSCULOSKELETAL: No cyanosis, mild LE edema. S/p bilat LE amputations Groin stable Laboratory Laboratory Tests Test 06/30/17 06:01 White Blood Count 10.0 TH/MM3 Red Blood Count 3.72 MIL/MM3 Hemoglobin 11.9 GM/DL Hematocrit 34.0 % Mean Corpuscular Volume 91.4 FL Mean Corpuscular Hemoglobin 32.1 PG Mean Corpuscular Hemoglobin Concent 35.1 % Red Cell Distribution Width 15.7 % Platelet Count 157 TH/MM3 Mean Platelet Volume 8.4 FL Neutrophils (%) (Auto) 71.2 % Lymphocytes (%) (Auto) 16.1 % Monocytes (%) (Auto) 8.9 % Eosinophils (%) (Auto) 2.9 % Basophils (%) (Auto) 0.9 % Neutrophils # (Auto) 7.1 TH/MM3 Lymphocytes # (Auto) 1.6 TH/MM3 Monocytes # (Auto) 0.9 TH/MM3 Eosinophils # (Auto) 0.3 TH/MM3 Basophils # (Auto) 0.1 TH/MM3 CBC Comment AUTO DIFF Differential Total Cells Counted 100 Neutrophils % (Manual) 69 % Band Neutrophils % 7 % Lymphocytes % 12 % Monocytes % 6 % Eosinophils % 5 % Basophils % 1 % Neutrophils # (Manual) 7.6 TH/MM3 Differential Comment FINAL DIFF MANUAL Platelet Estimate NORMAL Platelet Morphology Comment NORMAL Red Cell Morphology Comment NORMAL Blood Urea Nitrogen 35 MG/DL Creatinine 1.66 MG/DL Random Glucose 188 MG/DL Total Protein 7.9 GM/DL Albumin 2.9 GM/DL Calcium Level 8.6 MG/DL Alkaline Phosphatase 106 U/L Aspartate Amino Transf (AST/SGOT) 28 U/L Alanine Aminotransferase (ALT/SGPT) 26 U/L Total Bilirubin 1.2 MG/DL Sodium Level 131 MEQ/L Potassium Level 4.2 MEQ/L Chloride Level 99 MEQ/L Carbon Dioxide Level 25.1 MEQ/L Anion Gap 7 MEQ/L Estimat Glomerular Filtration Rate 42 ML/MIN Digoxin Level 0.6 NG/ML Assessment and Plan Problem List: (1) Non-ST elevation [place] (NSTEMI) ICD Codes: I21.4 - Non-ST elevation (NSTEMI) myocardial infarction Status: Acute (2) CAD (coronary artery disease) ICD Codes: I25.10 - Atherosclerotic heart disease of [place] coronary artery without angina pectoris Status: Chronic (3) Cardiomyopathy ICD Codes: I42.9 - Cardiomyopathy, unspecified (4) Chronic atrial fibrillation ICD Codes: I48.2 - Chronic atrial fibrillation Status: Chronic (5) Abdominal aneurysm ICD Codes: I71.4 - Abdominal aortic aneurysm Status: Acute (6) Status post below knee amputation of left lower extremity ICD Codes: Z89.512 - Acquired absence of left leg below knee Status: Acute (7) CKD (chronic kidney disease) stage 3, GFR 30-59 ml/min ICD Codes: N18.3 - Chronic kidney disease, stage 3 (moderate) Status: Chronic (8) CHF (congestive heart failure) ICD Codes: I50.9 - Heart failure, unspecified Status: Chronic (9) DM (diabetes mellitus) ICD Codes: E11.9 - Type 2 diabetes mellitus without complications Status: Chronic (10) Chronic hepatitis C without mention of hepatic coma ICD Codes: B18.2 - Chronic hepatitis C virus infection Status: Acute Assessment and Plan No new cardiac issues. No angina or CHF exacerbation. Cath showed severe CAD with severe 95% prox stenosis of a large LAD. Continue heparin. CABG tomorrow. Problem Qualifiers (1) CAD (coronary artery disease): Qualified Codes: I25.119 - Atherosclerotic heart disease of [place] coronary artery with unspecified angina pectoris Nancy Rodriguez MD Jun 30, 2017 13:53
--- NOTE | 2017-06-30 15:59 | PD.CAR.PN ---
CVT Progress Note Subjective/Hospital Course: 66 year-old male, patient of Dr. Del Toro, Dr. Di Dutton, presented to the emergency room with substernal chest pain on 06/23/2017, also with some shortness of breath, was noted to be severely hypertensive with a systolic blood pressure close to 200. He has an extensive cardiac background. 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 Troponin was 1.98 pounds. The patient underwent cardiac cath by for [id number] FL, showed an ejection fraction of 25%, 50% left ostial lesion, 95% proximal LAD. The diagonal had an 80% stenosis in the proximal lesion, the circ was 40%. The OM 90%. The RCA 50%. He also underwent 2-D echocardiogram, that showed an EF of 45%. He had some mild right atrial dilation, mild mitral valve regurgitation, tricuspid regurgitation. We were consulted to evaluate for coronary artery bypass grafting. PMH: chronic atrial fibrillation on Coumadin, hypertension, congestive heart failure with prior EF of 30-35, EF per cath was 25%. He has an ICD placement on the left upper chest, diabetes mellitus, chronic back pain. HX femoral aortic aneurysm, hepatitis C, liver cirrhosis, chronic back pain, Peripheral arterial disease. PAST SURGICAL HISTORY: ICD placement, Left [id number] amputation, Amputation of the right forefoot, Right carotid endarterectomy, Liver biopsy, Abdominal aortic aneurysm repair. 06/29 pt spoke to his brother, now is agreeable to proceed with surgery , which is scheduled for Tuesday carotid US : unremarkable vein mapping reviewed 06/30 pain free, on schedule for surgery in am Objective: GENERAL: SKIN: Warm and dry. HEAD: Normocephalic. EYES: No scleral icterus. No injection or drainage. NECK: Supple, trachea midline. No JVD or lymphadenopathy. CARDIOVASCULAR: Regular rate and rhythm without murmurs, gallops, or rubs. RESPIRATORY: Breath sounds equal bilaterally. No accessory muscle use. GASTROINTESTINAL: Abdomen soft, non-tender, nondistended. MUSCULOSKELETAL: No cyanosis, or edema. left BKA , dressing to right heel BACK: Nontender without obvious deformity. No CVA tenderness. Vital Signs Date Time Temp Pulse Resp B/P (MAP) Pulse Ox O2 Delivery O2 Flow Rate FiO2 06/30/17 14:53 14 06/30/17 14:00 77 06/30/17 13:00 77 06/30/17 12:12 84 06/30/17 12:12 97.9 79 18 144/72 (96) 96 06/30/17 10:00 89 06/30/17 09:00 73 06/30/17 08:21 98 Nasal Cannula 2.00 06/30/17 08:00 79 06/30/17 07:00 77 06/30/17 07:00 Nasal Cannula 3.00 06/30/17 07:00 97.4 73 18 137/81 (99) 100 06/30/17 06:15 96 Nasal Cannula 3.00 06/30/17 06:10 149/90 (109) 06/30/17 06:00 62 06/30/17 05:00 68 06/30/17 04:10 100 Nasal Cannula 2.00 06/30/17 04:10 97.9 80 18 137/80 (99) 100 06/30/17 04:00 59 06/30/17 03:00 72 06/30/17 02:00 60 06/30/17 01:00 60 06/30/17 00:00 97 Nasal Cannula 2.00 06/30/17 00:00 97.8 73 18 124/76 (92) 97 06/29/17 23:57 68 06/29/17 23:00 62 06/29/17 22:00 60 06/29/17 21:20 99 Nasal Cannula 2.00 06/29/17 21:00 62 06/29/17 20:00 94 06/29/17 20:00 97.9 68 18 117/67 (84) 99 06/29/17 19:37 61 06/29/17 18:00 84 06/29/17 17:00 76 Labs: Laboratory Tests Test 06/30/17 06:01 White Blood Count 10.0 TH/MM3 (4.0-11.0) Red Blood Count 3.72 MIL/MM3 (4.50-5.90) Hemoglobin 11.9 GM/DL (13.0-17.0) Hematocrit 34.0 % (39.0-51.0) Mean Corpuscular Volume 91.4 FL (80.0-100.0) Mean Corpuscular Hemoglobin 32.1 PG (27.0-34.0) Mean Corpuscular Hemoglobin Concent 35.1 % (32.0-36.0) Red Cell Distribution Width 15.7 % (11.6-17.2) Platelet Count 157 TH/MM3 (150-450) Mean Platelet Volume 8.4 FL (7.0-11.0) Neutrophils (%) (Auto) 71.2 % (16.0-70.0) Lymphocytes (%) (Auto) 16.1 % (9.0-44.0) Monocytes (%) (Auto) 8.9 % (0.0-8.0) Eosinophils (%) (Auto) 2.9 % (0.0-4.0) Basophils (%) (Auto) 0.9 % (0.0-2.0) Neutrophils # (Auto) 7.1 TH/MM3 (1.8-7.7) Lymphocytes # (Auto) 1.6 TH/MM3 (1.0-4.8) Monocytes # (Auto) 0.9 TH/MM3 (0-0.9) Eosinophils # (Auto) 0.3 TH/MM3 (0-0.4) Basophils # (Auto) 0.1 TH/MM3 (0-0.2) CBC Comment AUTO DIFF Differential Total Cells Counted 100 Neutrophils % (Manual) 69 % (16-70) Band Neutrophils % 7 % (0-6) Lymphocytes % 12 % (9-44) Monocytes % 6 % (0-8) Eosinophils % 5 % (0-4) Basophils % 1 % (0-2) Neutrophils # (Manual) 7.6 TH/MM3 (1.8-7.7) Differential Comment FINAL DIFF MANUAL Platelet Estimate NORMAL (NORMAL) Platelet Morphology Comment NORMAL (NORMAL) Red Cell Morphology Comment NORMAL (NORMAL) Blood Urea Nitrogen 35 MG/DL (7-18) Creatinine 1.66 MG/DL (0.60-1.30) Random Glucose 188 MG/DL (74-106) Total Protein 7.9 GM/DL (6.4-8.2) Albumin 2.9 GM/DL (3.4-5.0) Calcium Level 8.6 MG/DL (8.5-10.1) Alkaline Phosphatase 106 U/L (45-117) Aspartate Amino Transf (AST/SGOT) 28 U/L (15-37) Alanine Aminotransferase (ALT/SGPT) 26 U/L (12-78) Total Bilirubin 1.2 MG/DL (0.2-1.0) Sodium Level 131 MEQ/L (136-145) Potassium Level 4.2 MEQ/L (3.5-5.1) Chloride Level 99 MEQ/L (98-107) Carbon Dioxide Level 25.1 MEQ/L (21.0-32.0) Anion Gap 7 MEQ/L (5-15) Estimat Glomerular Filtration Rate 42 ML/MIN (>89) Digoxin Level 0.6 NG/ML (0.8-2.0) Result Diagram: 06/30/1760006/30/17600 (1) Non-ST elevation [place] (NSTEMI) Plan: ASA, statin , BB for surgery on tuesday (2) CAD (coronary artery disease) (3) Cardiomyopathy Plan: Dig level 0.6 (4) Chronic atrial fibrillation Plan: resume Coumadin post surgery (5) Abdominal aneurysm (6) Status post below knee amputation of left lower extremity (7) CKD (chronic kidney disease) stage 3, GFR 30-59 ml/min Plan: creatinine 1.59 > 1.66 (8) CHF (congestive heart failure) (9) DM (diabetes mellitus) Plan: Diabetic diet , insulin SS (10) Chronic hepatitis C without mention of hepatic coma (11) Ulcer of right heel Plan: wound care following Problem Qualifiers (1) CAD (coronary artery disease): Qualified Codes: I25.119 - Atherosclerotic heart disease of [place] coronary artery with unspecified angina pectoris Nika Egan Jun 30, 2017 15:59
[2017-06-30] MEDS: BETAMETHASONE DIPROPIONATE 0.05% CREAM 15 GM TOPICAL SCH ×2 (16:15→21:54)
--- NOTE | 2017-06-30 16:15 | HHI.PR ---
Subjective Remarks f/u for NSTEMI Patient feeling a lot better. Denied any chest pain, shortness of breathing, palpitation, lightheadedness dizziness. Patient complaining about pruritic rash that he had before admission to the hospital. He stated he put lotions on it and it feels better. Objective Vitals Vital Signs Date Time Temp Pulse Resp B/P (MAP) Pulse Ox O2 Delivery O2 Flow Rate FiO2 06/30/17 16:00 89 06/30/17 15:00 77 06/30/17 15:00 97.6 56 16 132/77 (95) 98 06/30/17 14:53 14 06/30/17 14:00 77 06/30/17 13:00 77 06/30/17 12:12 84 06/30/17 12:12 97.9 79 18 144/72 (96) 96 06/30/17 10:00 89 06/30/17 09:00 73 06/30/17 08:21 98 Nasal Cannula 2.00 06/30/17 08:00 79 06/30/17 07:00 77 06/30/17 07:00 Nasal Cannula 3.00 06/30/17 07:00 97.4 73 18 137/81 (99) 100 06/30/17 06:15 96 Nasal Cannula 3.00 06/30/17 06:10 149/90 (109) 06/30/17 06:00 62 06/30/17 05:00 68 06/30/17 04:10 100 Nasal Cannula 2.00 06/30/17 04:10 97.9 80 18 137/80 (99) 100 06/30/17 04:00 59 06/30/17 03:00 72 06/30/17 02:00 60 06/30/17 01:00 60 06/30/17 00:00 97 Nasal Cannula 2.00 06/30/17 00:00 97.8 73 18 124/76 (92) 97 06/29/17 23:57 68 06/29/17 23:00 62 06/29/17 22:00 60 06/29/17 21:20 99 Nasal Cannula 2.00 06/29/17 21:00 62 06/29/17 20:00 94 06/29/17 20:00 97.9 68 18 117/67 (84) 99 1/24/18 19:37 61 06/29/17 18:00 84 06/29/17 17:00 76 I/O 06/29/17 06/29/17 06/29/17 06/30/17 06/30/17 06/30/17 07:00 15:00 23:00 07:00 15:00 23:00 Intake Total 480 ml 480 ml 360 ml Output Total 200 ml 250 ml 450 ml Balance 280 ml -250 ml 30 ml 360 ml Intake Oral 480 ml 480 ml 360 ml Output Urine Total 200 ml 250 ml 450 ml # Voids 3 # Bowel Movements 0 0 Result Diagram: 06/30/17 0601 06/30/17 06 Objective Remarks GENERAL: in NAD SKIN: thigh area with some excoriation from itching + macular rash. CARDIOVASCULAR: Regular rate and rhythm without murmurs, gallops, or rubs. RESPIRATORY: Breath sounds equal bilaterally. No accessory muscle use. GASTROINTESTINAL: Abdomen soft, non-tender, nondistended. MUSCULOSKELETAL:left BKA with right foot amputation Medications and IVs Current Medications Sodium Chloride (NS Flush) 2 ml UNSCH PRN IVF FLUSH AFTER USING IV ACCESS; Start 06/23/17 at 09:00; Stop 06/23/17 at 12:05; Status DC Metoprolol Tartrate (Lopressor Inj) 5 mg Q5M PRN IV PUSH SBP>180, DBP>95 Last administered on 06/28/17at 07:27; Start 06/23/17 at 09:30 Aspirin (Aspirin) 325 mg ONCE ONCE PO ; Start 06/23/17 at 09:45; Stop 06/23/17 at 09:46; Status DC Heparin Sodium (Porcine) (Heparin Inj) 5,400 units ONCE ONCE IV PUSH ; Start at 09:45; Stop 06/23/17 at 09:46; Status DC Heparin Sodium (Porcine) (Heparin Inj) 5,000 units UNSCH PRN IV PUSH APTT LESS THAN 25; Start 06/23/17 at 15:45; Stop 06/27/17 at 08:00; Status DC Heparin Sodium (Porcine) (Heparin Inj) 2,500 units UNSCH PRN IV PUSH APTT 25 TO 39; Start 06/23/17 at 15:45; Stop 06/27/17 at 08:00; Status DC Heparin Sodium/ Dextrose 250 ml @ 10 mls/hr TITRATE PRN IV Coagulation Management Last administered on 06/26/17at 12:51; Start 06/23/17 at 09:45; Stop 06/27/17 at 08:00; Status DC Sodium Chloride (NS Flush) 2 ml UNSCH PRN IV FLUSH FLUSH AFTER USING IV ACCESS ; Start 06/23/17 at 11:15 Sodium Chloride (NS Flush) 2 ml BID IV FLUSH Last administered on 06/30/17at 10: 03; Start 06/23/17 at 21:00 Acetaminophen (Tylenol) 650 mg Q4H PRN PO TEMP > 100.4; Start 06/23/17 at 11:15 Ondansetron HCl (Zofran Inj) 4 mg Q6H PRN IVP NAUSEA OR VOMITING; Start at 11:15 Acetaminophen (Tylenol) 650 mg Q6H PRN PO PAIN SCALE 1 TO 2; Start 06/23/17 at 11:15 Naloxone HCl (Narcan Inj) 0.4 mg UNSCH PRN IV PUSH SEE LABEL COMMENTS; Start at 11:15 Magnesium Hydroxide (Milk Of [place] Liq) 30 ml Q12H PRN PO Mild constipation Last administered on 06/30/17at 13:48; Start 06/23/17 at 11:15 Albuterol/ Ipratropium (Duoneb Neb) 1 ampule Q2HR NEB PRN NEB SOB/WHEEZING Last administered on 06/30/17at 06:15; Start 06/23/17 at 11:15 Dextrose (D50w (Vial) Inj) 50 ml UNSCH PRN IV PUSH HYPOGLYCEMIA-SEE COMMENTS; Start 06/23/17 at 11:15 Glucagon (Glucagon Inj) 1 mg UNSCH PRN OTHER HYPOGLYCEMIA-SEE COMMENTS; Start 06/23/17 at 11:15 Insulin Aspart (NovoLOG SUPPLEMENTAL SCALE) 1 ACHS SLIDING SCALE SQ Last administered on 06/30/17at 12:33; Start 06/23/17 at 12:00 Aspirin (Aspirin Chew) 162 mg DAILY PO Last administered on 06/30/17at 10:03; Start 06/24/17 at 09:00 Nitroglycerin (Nitroglycerin 2% Oint) 1 inch Q6HR TOP Last administered on 06/30at 06:02; Start 06/23/17 at 12:00 Hydralazine HCl (Apresoline Inj) 20 mg Q4H PRN IV PUSH SBP>160, DBP>90; Start 06/23/17 at 11:15 Phytonadione (Mephyton Liq) 5 mg ONCE ONCE PO Last administered on 06/23/17at 17:43; Start 06/23/17 at 14:15; Stop 06/23/17 at 15:00; Status DC Atorvastatin Calcium (Lipitor) 80 mg HS PO Last administered on 06/29/17at 21:26 ; Start 06/23/17 at 21:00 Digoxin (Lanoxin) 0.125 mg DAILY PO Last administered on 06/30/17 10:02; Start 06/24/17 at 09:00 Furosemide (Lasix) 40 mg DAILY PO Last administered on 06/30/17 10:03; Start 06/24/17 at 09:00 Insulin Detemir (Levemir Inj) 32 units Q12HR SQ Last administered on 06/26/17at 21:49; Start 06/23/17 at 21:00 Isosorbide Mononitrate (Imdur) 30 mg DAILY@0700 PO Last administered on 10:02; Start 06/24/17 at 07:00 Metoprolol Succinate (Toprol Xl) 25 mg DAILY PO Last administered on 06/30/17 10:02; Start 06/24/17 at 09:00 Morphine Sulfate (Msir) 15 mg 5 TIMES A DAY PO Last administered on 06/30/17at 13:48; Start 06/23/17 at 18:00 Sodium Chloride 1,000 ml @ 84 mls/hr [id number] IV Last administered on at 11:50; Start 06/27/17 at 12:00; Stop 06/28/17 at 14:30; Status DC Lactic Acid (Lac-Hydrin 12% Lotion) 1 applic BID TOPICAL Last administered on at 09:00; Start 06/27/17 at 21:00 Heparin Sodium (Porcine) (Heparin Inj) 10,000 units STK-MED ONCE .ROUTE ; Start 06/27/17 at 16:58; Stop 06/27/17 at 16:59; Status DC Midazolam HCl (Versed Inj) 4 mg STK-MED ONCE .ROUTE Last administered on at 17:13; Start 06/27/17 at 17:03; Stop 06/27/17 at 17:04; Status DC Fentanyl Citrate (fentaNYL INJ) 100 mcg STK-MED ONCE .ROUTE Last administered on 06/27/17at 17:14; Start 06/27/17 at 17:03; Stop 06/27/17 at 17:04; Status DC Nitroglycerin 5 ml @ As Directed STK-MED ONCE .ROUTE Last administered on at 17:04; Start 06/27/17 at 17:04; Stop 06/27/17 at 17:05; Status DC Heparin Sodium/ Sodium Chloride 1,000 ml @ As Directed STK-MED ONCE .ROUTE Last administered on 06/27/17at 17:04; Start 06/27/17 at 17:04; Stop 06/27/17 at 17:05; Status DC Sodium Chloride 500 ml @ 100 mls/hr Q5H IV ; Start 06/27/17 at 18:13; Stop at 22:12; Status DC Heparin Sodium/ Dextrose 250 ml @ 10 mls/hr TITRATE PRN IV Coagulation Management; Start 06/27/17 at 23:00 Iohexol (OMNIPAQUE 350 INJ ([employer] Department Head)) 100 ml STK-MED ONCE OTHER ; Start at 08:58; Stop 06/28/17 at 08:58; Status DC Iohexol (OMNIPAQUE 350 INJ ([employer] Department Head)) 50 ml STK-MED ONCE OTHER ; Start at 09:07; Stop 06/28/17 at 09:07; Status DC Sodium Chloride (NS Flush) 2 ml BID IV FLUSH ; Start 06/28/17 at 21:00; Stop at 21:00; Status DC Sodium Chloride (NS Flush) 2 ml UNSCH PRN IV FLUSH FLUSH AFTER USING IV ACCESS ; Start 06/28/17 at 13:00; Stop 06/28/17 at 13:56; Status DC Papaverine HCl 60 mg/Nitroglycerin 100 mcg/Diltiazem HCl 100 mg/Sodium Chloride 100 ml @ 0 mls/hr MUSHROOM SORTER GRADER IRRIGATION ; Start 06/28/17 at 13:00; Stop 07/05/17 at 12:59 Cefazolin Sodium 500 mg/Sodium Chloride 505 ml @ 0 mls/hr MUSHROOM SOR[employer] GRADER IRRIGATION ; Start 06/28/17 at 13:00; Stop 07/05/17 at 12:59 Cefazolin Sodium/ Dextrose 50 ml @ 150 mls/hr MUSHROOM SORTER GRADER IV ; Start 06/28/17 at 13:00; Stop 07/05/17 at 12:59 Metoprolol Tartrate (Lopressor) 12.5 mg MUSHROOM SORTER GRADER PO ; Start 06/28/17 at 13:00; Stop 07/05/17 at 12:59 Chlorhexidine Gluconate (Hibiclens 4% Top Soln) 1 applic MUSHROOM SORTER GRADER TOPICAL ; Start 06/28/17 at 13:00; Stop 07/05/17 at 12:59 Insulin Human Regular 100 units/ Sodium Chloride 100 ml @ 3 mls/hr TITRATE PRN IV for blood glucose control; Start 06/28/17 at 13:00; Stop 07/05/17 at 12:59 Dextrose (D50w (Vial) Inj) 50 ml UNSCH PRN IV PUSH HYPOGLYCEMIA-SEE COMMENTS; Start 06/28/17 at 13:00 Collagenase (Santyl Oint) 1 applic DAILY TOPICAL Last administered on at 10:04; Start 06/29/17 at 09:00 A/P Problem List: (1) Non-ST elevation [place] (NSTEMI) ICD Code: I21.4 - Non-ST elevation (NSTEMI) myocardial infarction Status: Acute Assessment and Plan 66 years old man with 1. NSTEMI Patient on heparin drip, aspirin, statin and metoprolol. He had a heart catheterization done on 06/28 showing severe CAD with severe 95 % prox stenosis of a large LAD. CVS consulted for cardiac bypass. cardiac bypass scheduled for tomorrow. 2. CHF: Chronic. Systolic. Echo 09/07/13 w/ EF 30-35%, s/p AICD No evidence of fluid overload. BNP mildly elevated @230, CXR w/ no acute findings Continue current regimen. 3. Supra Therapeutic INR Treat with Vit K 5mg PO x 1 INR now 1.7. Now on Coumadin and to sparing surgery. 4. Leukocytosis: WBC 13.3, CXR w/ no acute findings. UA negative. Clinically patient does not look like he has any infectious process. This may be due to his NSTEMI. resolved. 5. A-fib: Chronic. Resume home Digoxin/Metoprolol. INR supra therapeutic, Hold Coumadin. Patient on heparin drip. 6. Chronic Pain syndrome: Status post left BKA Resume home Morphine PO .Online Marketing Director Consulted pending report. 7. DM: Sliding scale w/ Accu-Cheks, resume home Insulin 8. Tobacco Abuse: Ativan prn, no NicoDerm to avoid vasoconstriction. 9: Pruritic rash Will order betamethasone cream. 10. DVT Prophylaxis: Heparin Discharge Planning Patient scheduled for cardiac bypass tomorrow. Michelle Osorio MD Jun 30, 2017 16:15
[2017-06-30 17:06] LABS: HEMOGLOBIN A1C 6.7 % (4.3-6.0)
[2017-06-30] MEDS ORDERED: MIDAZOLAM HCL 2 MG/2 ML VIAL IV ONE ×2 (19:45)
[2017-06-30] MEDS ORDERED: SOD PHOSPHATE/SOD BIPHOSPHATE (ADULT) ENEMA 133ML RECTAL ONE (20:00)
[2017-06-30] MEDS: ATORVASTATIN 80 MG TAB PO SCH (21:56)
[2017-07-01] VITALS (21 sets, daily range): BP systolic 98–130; BP diastolic 29–86; PULSE 58–83; RESP 13–22; TEMP 97.4–98.5; O2SAT 98–100
[2017-07-01] MEDS: ISOSORBIDE MONONITRATE 30 MG TAB PO SCH (05:36)
[2017-07-01] MEDS: NITROGLYCERIN 2% OINT 1 GM PACKET TOP SCH (05:38)
[2017-07-01] MEDS: MORPHINE SULFATE 15 MG TAB PO SCH ×2 (05:38→09:23)
[2017-07-01 07:26] LABS: BICARBONATE 27.3 MEQ/L (21.0-32.0); CALCIUM 8.7 MG/DL (8.5-10.1); CREATININE 1.88 MG/DL (0.60-1.30)
[2017-07-01] MEDS: INSULIN ASPART SUPPLEMENTAL SCALE SQ SCH (08:00)
[2017-07-01] MEDS: INSULIN DETEMIR 100 UNITS/ML VIAL SQ SCH (09:00)
[2017-07-01] MEDS: COLLAGENASE OINT 30 GM TUBE TOPICAL SCH (09:00)
[2017-07-01] MEDS: BETAMETHASONE DIPROPIONATE 0.05% CREAM 15 GM TOPICAL SCH ×2 (09:00→20:37)
[2017-07-01] MEDS: ASPIRIN 81 MG CHEW TAB PO SCH (09:00)
[2017-07-01] MEDS: FUROSEMIDE 40 MG TAB PO SCH (09:00)
[2017-07-01] MEDS: SODIUM CHLORIDE 0.9% FLUSH 10 ML FLUSH IV FLUSH SCH ×2 (09:00→20:32)
[2017-07-01] MEDS: LACTIC ACID (AMMONIUM LACTATE) 12% LOTION 225 GM BTL TOPICAL SCH ×2 (09:00→20:37)
[2017-07-01] MEDS: DIGOXIN 0.125 MG TAB PO SCH (09:00)
[2017-07-01] MEDS: METOPROLOL SUCCINATE 50 MG EXTENDED RELEASE TAB PO SCH (09:24)
--- NOTE | 2017-07-01 10:18 | HHI.PR ---
Subjective Remarks f/u for NSTEMI Patient scheduled for a CABG at 12 noon. He had no complaints. He stated that he is nervous about the procedure. Denied chest pain, soreness of breathing, palpitation, lightheadedness or dizziness. Objective Vitals Vital Signs Date Time Temp Pulse Resp B/P (MAP) Pulse Ox O2 Delivery O2 Flow Rate FiO2 07/01/17 10:00 68 07/01/17 09:00 76 07/01/17 08:00 70 07/01/17 07:00 76 07/01/17 07:00 97.4 64 18 114/64 (81) 100 07/01/17 06:00 72 07/01/17 05:00 66 07/01/17 04:00 83 07/01/17 04:00 97.4 82 16 129/86 (100) 99 07/01/17 03:00 64 07/01/17 02:00 66 07/01/17 01:00 70 07/01/17 00:00 67 07/01/17 00:00 97.5 74 16 130/77 (94) 100 06/30/17 23:00 76 06/30/17 22:00 78 06/30/17 21:00 70 06/30/17 20:00 77 06/30/17 20:00 Nasal Cannula 2.00 06/30/17 20:00 98.3 67 16 151/84 (106) 99 06/30/17 18:09 56 06/30/17 17:18 98 Nasal Cannula 2.00 06/30/17 17:07 88 06/30/17 16:00 89 06/30/17 15:00 77 06/30/17 15:00 97.6 56 16 132/77 (95) 98 06/30/17 14:53 14 06/30/17 14:00 77 06/30/17 13:00 77 06/30/17 12:12 84 06/30/17 12:12 97.9 79 18 144/72 (96) 96 I/O 06/30/17 06/30/17 06/30/17 07/01/17 07/01/17 07/01/17 07:00 15:00 23:00 07:00 15:00 23:00 Intake Total 360 ml 700 ml Output Total 680 ml 575 ml Balance 360 ml 20 ml -575 ml Intake Oral 360 ml 700 ml Output Urine Total 680 ml 575 ml # Voids 3 1 # Bowel Movements 0 1 Result Diagram: 06/30/17 0601 07/01/17 0550 Objective Remarks GENERAL: in NAD SKIN: thigh area with some excoriation from itching + macular rash. CARDIOVASCULAR: Regular rate and rhythm without murmurs, gallops, or rubs. RESPIRATORY: Breath sounds equal bilaterally. No accessory muscle use. GASTROINTESTINAL: Abdomen soft, non-tender, nondistended. MUSCULOSKELETAL:left BKA with right foot amputation Medications and IVs Current Medications Sodium Chloride (NS Flush) 2 ml UNSCH PRN IVF FLUSH AFTER USING IV ACCESS; Start 06/23/17 at 09:00; Stop 06/23/17 at 12:05; Status DC Metoprolol Tartrate (Lopressor Inj) 5 mg Q5M PRN IV PUSH SBP>180, DBP>95 Last administered on 06/28/17at 07:27; Start 06/23/17 at 09:30 Aspirin (Aspirin) 325 mg ONCE ONCE PO ; Start 06/23/17 at 09:45; Stop 06/23/17 at 09:46; Status DC Heparin Sodium (Porcine) (Heparin Inj) 5,400 units ONCE ONCE IV PUSH ; Start at 09:45; Stop 06/23/17 at 09:46; Status DC Heparin Sodium (Porcine) (Heparin Inj) 5,000 units UNSCH PRN IV PUSH APTT LESS THAN 25; Start 06/23/17 at 15:45; Stop 06/27/17 at 08:00; Status DC Heparin Sodium (Porcine) (Heparin Inj) 2,500 units UNSCH PRN IV PUSH APTT 25 TO 39; Start 06/23/17 at 15:45; Stop 06/27/17 at 08:00; Status DC Heparin Sodium/ Dextrose 250 ml @ 10 mls/hr TITRATE PRN IV Coagulation Management Last administered on 06/26/17at 12:51; Start 06/23/17 at 09:45; Stop 06/27/17 at 08:00; Status DC Sodium Chloride (NS Flush) 2 ml UNSCH PRN IV FLUSH FLUSH AFTER USING IV ACCESS ; Start 06/23/17 at 11:15 Sodium Chloride (NS Flush) 2 ml BID IV FLUSH Last administered on 06/30/17at 21: 57; Start 06/23/17 at 21:00 Acetaminophen (Tylenol) 650 mg Q4H PRN PO TEMP > 100.4; Start 06/23/17 at 11:15 Ondansetron HCl (Zofran Inj) 4 mg Q6H PRN IVP NAUSEA OR VOMITING; Start at 11:15 Acetaminophen (Tylenol) 650 mg Q6H PRN PO PAIN SCALE 1 TO 2; Start 06/23/17 at 11:15 Naloxone HCl (Narcan Inj) 0.4 mg UNSCH PRN IV PUSH SEE LABEL COMMENTS; Start at 11:15 Magnesium Hydroxide (Milk Of Magnesia Liq) 30 ml Q12H PRN PO Mild constipation Last administered on 06/30/17at 13:48; Start 06/23/17 at 11:15 Albuterol/ Ipratropium (Duoneb Neb) 1 ampule Q2HR NEB PRN NEB SOB/WHEEZING Last administered on 06/30/17at 06:15; Start 06/23/17 at 11:15 Dextrose (D50w (Vial) Inj) 50 ml UNSCH PRN IV PUSH HYPOGLYCEMIA-SEE COMMENTS; Start 06/23/17 at 11:15 Glucagon (Glucagon Inj) 1 mg UNSCH PRN OTHER HYPOGLYCEMIA-SEE COMMENTS; Start 06/23/17 at 11:15 Insulin Aspart (NovoLOG SUPPLEMENTAL SCALE) 1 ACHS SLIDING SCALE SQ Last administered on 06/30/17at 21:54; Start 06/23/17 at 12:00 Aspirin (Aspirin Chew) 162 mg DAILY PO Last administered on 06/30/17at 10:03; Start 06/24/17 at 09:00 Nitroglycerin (Nitroglycerin 2% Oint) 1 inch Q6HR TOP Last administered on 07/01at 05:38; Start 06/23/17 at 12:00 Hydralazine HCl (Apresoline Inj) 20 mg Q4H PRN IV PUSH SBP>160, DBP>90; Start 06/23/17 at 11:15 Phytonadione (Mephyton Liq) 5 mg ONCE ONCE PO Last administered on 06/23/17at 17:43; Start 06/23/17 at 14:15; Stop 06/23/17 at 15:00; Status DC Atorvastatin Calcium (Lipitor) 80 mg HS PO Last administered on 06/30/17 21:56 ; Start 06/23/17 at 21:00 Digoxin (Lanoxin) 0.125 mg DAILY PO Last administered on 06/30/17 10:02; Start 06/24/17 at 09:00 Furosemide (Lasix) 40 mg DAILY PO Last administered on 06/30/17 10:03; Start 06/24/17 at 09:00 Insulin Detemir (Levemir Inj) 32 units Q12HR SQ Last administered on 06/26/17at 21:49; Start 06/23/17 at 21:00 Isosorbide Mononitrate (Imdur) 30 mg DAILY@0700 PO Last administered on 05:36; Start 06/24/17 at 07:00 Metoprolol Succinate (Toprol Xl) 25 mg DAILY PO Last administered on 07/01/17 09:24; Start 06/24/17 at 09:00 Morphine Sulfate (Msir) 15 mg 5 TIMES A DAY PO Last administered on 07/01/17 09:23; Start 06/23/17 at 18:00 Sodium Chloride 1,000 ml @ 84 mls/hr [id number] IV Last administered on at 11:50; Start 06/27/17 at 12:00; Stop 06/28/17 at 14:30; Status DC Lactic Acid (Lac-Hydrin 12% Lotion) 1 applic BID TOPICAL Last administered on at 21:55; Start 06/27/17 at 21:00 Heparin Sodium (Porcine) (Heparin Inj) 10,000 units STK-MED ONCE .ROUTE ; Start 06/27/17 at 16:58; Stop 06/27/17 at 16:59; Status DC Midazolam HCl (Versed Inj) 4 mg STK-MED ONCE .ROUTE Last administered on at 17:13; Start 06/27/17 at 17:03; Stop 06/27/17 at 17:04; Status DC Fentanyl Citrate (fentaNYL INJ) 100 mcg STK-MED ONCE .ROUTE Last administered on 06/27/17at 17:14; Start 06/27/17 at 17:03; Stop 06/27/17 at 17:04; Status DC Nitroglycerin 5 ml @ As Directed STK-MED ONCE .ROUTE Last administered on at 17:04; Start 06/27/17 at 17:04; Stop 06/27/17 at 17:05; Status DC Heparin Sodium/ Sodium Chloride 1,000 ml @ As Directed STK-MED ONCE .ROUTE Last administered on 06/27/17at 17:04; Start 06/27/17 at 17:04; Stop 06/27/17 at 17:05; Status DC Sodium Chloride 500 ml @ 100 mls/hr Q5H IV ; Start 06/27/17 at 18:13; Stop at 22:12; Status DC Heparin Sodium/ Dextrose 250 ml @ 10 mls/hr TITRATE PRN IV Coagulation Management; Start 06/27/17 at 23:00 Iohexol (OMNIPAQUE 350 INJ (Machine Ceramic Coater)) 100 ml STK-MED ONCE OTHER ; Start at 08:58; Stop 06/28/17 at 08:58; Status DC Iohexol (OMNIPAQUE 350 INJ (Machine Ceramic Coater)) 50 ml STK-MED ONCE OTHER ; Start at 09:07; Stop 06/28/17 at 09:07; Status DC Sodium Chloride (NS Flush) 2 ml BID IV FLUSH ; Start 06/28/17 at 21:00; Stop at 21:00; Status DC Sodium Chloride (NS Flush) 2 ml UNSCH PRN IV FLUSH FLUSH AFTER USING IV ACCESS ; Start 06/28/17 at 13:00; Stop 06/28/17 at 13:56; Status DC Papaverine HCl 60 mg/Nitroglycerin 100 mcg/Diltiazem HCl 100 mg/Sodium Chloride 100 ml @ 0 mls/hr TRAFFIC SIGN ERECTION SUPERVISOR IRRIGATION ; Start 06/28/17 at 13:00; Stop 07/05/17 at 12:59 Cefazolin Sodium 500 mg/Sodium Chloride 505 ml @ 0 mls/hr TRAFFIC SIGN ERECTION SUPERVISOR IRRIGATION ; Start 06/28/17 at 13:00; Stop 07/05/17 at 12:59 Cefazolin Sodium/ Dextrose 50 ml @ 150 mls/hr TRAFFIC SIGN ERECTION SUPERVISOR IV ; Start 06/28/17 at 13:00; Stop 07/05/17 at 12:59 Metoprolol Tartrate (Lopressor) 12.5 mg TRAFFIC SIGN ERECTION SUPERVISOR PO ; Start 06/28/17 at 13:00; Stop 07/05/17 at 12:59 Chlorhexidine Gluconate (Hibiclens 4% Top Soln) 1 applic TRAFFIC SIGN ERECTION SUPERVISOR TOPICAL ; Start 06/28/17 at 13:00; Stop 07/05/17 at 12:59 Insulin Human Regular 100 units/ Sodium Chloride 100 ml @ 3 mls/hr TITRATE PRN IV for blood glucose control; Start 06/28/17 at 13:00; Stop 07/05/17 at 12:59 Dextrose (D50w (Vial) Inj) 50 ml UNSCH PRN IV PUSH HYPOGLYCEMIA-SEE COMMENTS; Start 06/28/17 at 13:00 Collagenase (Santyl Oint) 1 applic DAILY TOPICAL Last administered on at 10:04; Start 06/29/17 at 09:00 Betamethasone Dipropionate (Diprosone 0.05% Cream) 1 applic BID TOPICAL Last administered on 07/01/17at 09:00; Start 06/30/17 at 16:15 Midazolam HCl (Versed Inj) 2 mg NOW ONCE IV ; Start 06/30/17 at 19:45; Stop at 19:46; Status Cancel Fentanyl Citrate (fentaNYL INJ) 50 mcg NOW ONCE IV ; Start 06/30/17 at 19:45; Stop 06/30/17 at 19:46; Status DC Midazolam HCl (Versed Inj) 1 mg NOW ONCE IV ; Start 06/30/17 at 19:45; Stop at 19:46; Status DC Fentanyl Citrate (fentaNYL INJ) 25 mcg NOW ONCE IV ; Start 06/30/17 at 20:00; Stop 06/30/17 at 20:00; Status DC Sodium Biphosphate/ Sodium Phosphate (Fleets Enema (Adult)) 133 ml NOW ONCE RECTAL ; Start 06/30/17 at 20:00; Stop 06/30/17 at 20:01; Status DC A/P Problem List: (1) Non-ST elevation [place] (NSTEMI) ICD Code: I21.4 - Non-ST elevation (NSTEMI) myocardial infarction Status: Acute Assessment and Plan 66 years old man with 1. NSTEMI Patient on heparin drip, aspirin, statin and metoprolol. He had a heart catheterization done on 06/28 showing severe CAD with severe 95 % prox stenosis of a large LAD. CVS consulted for cardiac bypass. cardiac bypass scheduled for today. 2. CHF: Chronic. Systolic. Echo 09/07/13 w/ EF 30-35%, s/p AICD No evidence of fluid overload. BNP mildly elevated @230, CXR w/ no acute findings Continue current regimen. 3. Supra Therapeutic INR Treat with Vit K 5mg PO x 1 INR now 1.7. Now on Coumadin and to sparing surgery. 4. Leukocytosis: WBC 13.3, CXR w/ no acute findings. UA negative. Clinically patient does not look like he has any infectious process. This may be due to his NSTEMI. resolved. 5. A-fib: Chronic. Resume home Digoxin/Metoprolol. INR supra therapeutic, Hold Coumadin. Patient on heparin drip. 6. 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 7. DM: Sliding scale w/ Accu-Cheks, resume home Insulin 8. Tobacco Abuse: Ativan prn, no NicoDerm to avoid vasoconstriction. 9: Pruritic rash improved on betamethasone cream. 10. DVT Prophylaxis: Heparin Discharge Planning Patient scheduled for cardiac bypass today. Michelle Osorio MD Jul 01, 2017 10:18
--- NOTE | 2017-07-01 10:34 | HHI.NPPN ---
Subjective General Problems: Anemia, Heart Disease, Hypertension Renal Failure: Chronic, Stage III History of Present Illness 66-year-old male with a PMH of HTN, A. fib on Coumadin, CHF (Echo 09/17/13 w/ EF 30-35%), PVD, h/o Left BKA, AICD, Hepatitis C, Cirrhosis, DM, Chronic Back Pain , CKD, and Tobacco Abuse who presented to the emergency department with complaint of an acute onset of substernal chest pain. I was called for elevated BUN and Creatinine, patient has chronic kidney disease and not following with any Rn Document Improvement Specialist. Additional Remarks Anxious about surgery scheduled today. Denies any CP or SOB. Mild edema (Corinne Vizcaino) Additional Remarks Patient was seen by me post surgery, intubated. (Jai Godinez MD) Review of Systems Respiratory Respiratory Remarks Denies SOB (Corinne Vizcaino) Cardiovascular Cardiac Remarks Denies CP (Corinne Vizcaino) Gastrointestinal GI Remarks denies Abdominal pain (Corinne Vizcaino) Genitourinary Remarks denies dysuria (Corinne Vizcaino) Objective Data Data Vital Signs Date Time Temp Pulse Resp B/P (MAP) Pulse Ox O2 Delivery O2 Flow Rate FiO2 07/01/17 10:00 68 07/01/17 09:00 76 07/01/17 08:00 70 07/01/17 07:00 76 07/01/17 07:00 97.4 64 18 114/64 (81) 100 07/01/17 06:00 72 07/01/17 05:00 66 07/01/17 04:00 83 07/01/17 04:00 97.4 82 16 129/86 (100) 99 07/01/17 03:00 64 07/01/17 02:00 66 07/01/17 01:00 70 07/01/17 00:00 67 07/01/17 00:00 97.5 74 16 130/77 (94) 100 06/30/17 23:00 76 06/30/17 22:00 78 06/30/17 21:00 70 06/30/17 20:00 77 06/30/17 20:00 Nasal Cannula 2.00 06/30/17 20:00 98.3 67 16 151/84 (106) 99 06/30/17 18:09 56 06/30/17 17:18 98 Nasal Cannula 2.00 06/30/17 17:07 88 06/30/17 16:00 89 06/30/17 15:00 77 06/30/17 15:00 97.6 56 16 132/77 (95) 98 06/30/17 14:53 14 06/30/17 14:00 77 06/30/17 13:00 77 06/30/17 12:12 84 06/30/17 12:12 97.9 79 18 144/72 (96) 96 (Corinne Vizcaino) -: 06/30/17 0601 07/01/17 0550 Physical Exam General Appearance: No Acute Distress, Comfortable, Anxious (Corinne Vizcaino) Throat Throat Exam: Oral Mucosa [place] & Moist (Corinne Vizcaino) Pulmonary Resp Exam: Breath Sounds Equal, No Distress, Decreased Bases (Corinne Vizcaino) Cardiology CV Exam: Regular, Normal Sinus Rhythm (Corinne Vizcaino) Gastrointestinal/Abdomen GI Exam: Soft, Non-Tender, Bowel Sounds Present, Non-Distended (Corinne Vizcaino) Extremeties Extremities Exam: Trace Edema (Rt. TMA and Left BKA.) Extremeties Remarks right leg amputation (Corinne Vizcaino) Neurologic Neuro Exam: Alert, Awake, Oriented (Corinne Vizcaino) Psychiatric Psych Exam: Appropriate Responses (Corinne Vizcaino) Assessment/Plan Assessment Summary: CKD Stage III Electrolyte Assessment: Hyponatremia Problem List: (1) Chronic kidney disease (CKD) ICD Codes: N18.9 - Chronic kidney disease, unspecified Plan: Patient has stage 3 chronic kidney disease, most likely has Hypertensive, renovascular or Diabetic Nephropathy. Potassium WNL Urine with 3 + protein continues to have good urine output CABG scheduled for today Creatinine is 1.88 with GFR of 36 Risk of FRANCISCO with Surgery discussed with the patient. (2) NSTEMI (non-ST elevated myocardial infarction) ICD Codes: I21.4 - Non-ST elevation (NSTEMI) myocardial infarction Plan: BB and statin CABG today (3) Chronic hyponatremia ICD Codes: E87.1 - Chronic hyponatremia Status: Acute Plan: Sodium 132 asymptomatic will monitor (4) DM (diabetes mellitus) ICD Codes: E11.9 - Type 2 diabetes mellitus without complications Status: Chronic Plan: BS AC and HS Insulin dependent maintain BS 140mg/dl to 180 mg/dl (Corinne Vizcaino) Problem List: (1) Chronic kidney disease (CKD) ICD Codes: N18.9 - Chronic kidney disease, unspecified Plan: Patient has stage 3 chronic kidney disease, most likely has Hypertensive, renovascular or Diabetic Nephropathy. Potassium WNL Urine with 3 + protein continues to have good urine output CABG scheduled for today Creatinine is 1.88 with GFR of 36 Risk of FRANCISCO with Surgery discussed with the patient. Now Post CABG. BP is stable, on low pressors. Urine out put is adequate. Follow the urine out put and BMP. (2) NSTEMI (non-ST elevated myocardial infarction) ICD Codes: I21.4 - Non-ST elevation (NSTEMI) myocardial infarction Plan: BB and statin CABG today (3) Chronic hyponatremia ICD Codes: E87.1 - Chronic hyponatremia Status: Acute Plan: Sodium 132 asymptomatic will monitor (4) DM (diabetes mellitus) ICD Codes: E11.9 - Type 2 diabetes mellitus without complications Status: Chronic Plan: BS AC and HS Insulin dependent maintain BS 140mg/dl to 180 mg/dl (Jai Godinez MD) Problem Qualifiers (1) Chronic kidney disease (CKD): Qualified Codes: N18.3 - Chronic kidney disease, stage 3 (moderate) Corinne Vizcaino Jul 01, 2017 10:34 Jai Godinez MD Jul 01, 2017 19:46
[2017-07-01] MEDS ORDERED: methylPREDNISolone SOD SUCC 125 MG/2 ML VIAL ONE (12:40)
[2017-07-01] MEDS ORDERED: ceFAZolin 2 GM PREMIX 50 ML ONE (12:40)
[2017-07-01] MEDS ORDERED: HEPARIN SODIUM - SQ 10,000 UNITS/ML VIAL ONE (12:40)
[2017-07-01] MEDS ORDERED: VANCOMYCIN HCL 1000 MG VIAL ONE (12:40)
[2017-07-01] MEDS ORDERED: CARDIOPLEGIC IRR 2,000 ML ONE (13:14)
[2017-07-01] MEDS ORDERED: POTASSIUM CHLORIDE 20 MEQ/10 ML VIAL ONE (13:15)
[2017-07-01] MEDS ORDERED: POTASSIUM CHLORIDE 40 MEQ/20 ML VIAL ONE (13:15)
[2017-07-01] MEDS ORDERED: ALBUMIN 25% INJ 50 ML IV ONE (13:16)
[2017-07-01] MEDS ORDERED: MANNITOL INJ 100 ML ONE (13:16)
[2017-07-01] MEDS ORDERED: HEPARIN SODIUM - IV 10,000 UNITS/10 ML VIAL ONE (13:17)
[2017-07-01] MEDS ORDERED: SODIUM BICARBONATE 8.4% INJ 100 ML ONE (13:17)
[2017-07-01] MEDS ORDERED: LACTATED RINGER'S 1000 ML INJ 500 ML IV PRN (18:35)
[2017-07-01] MEDS ORDERED: DEXTROSE 50% IN WATER 50 ML VIAL(D50) IV PUSH PRN (18:45)
[2017-07-01] MEDS ORDERED: METOPROLOL TARTRATE 5 MG/5 ML VIAL IV PUSH PRN (18:45)
[2017-07-01] MEDS ORDERED: ONDANSETRON HCL 4 MG/2 ML VIAL IV PUSH PRN (18:45)
[2017-07-01] MEDS ORDERED: CALCIUM CHLORIDE 10% 1 GRAM/10 ML VIAL IV PUSH PRN (18:45)
[2017-07-01] MEDS ORDERED: POTASSIUM CHLORIDE 20 MEQ CONTROLLED RELEASE TAB PO PRN ×2 (18:45)
[2017-07-01] MEDS ORDERED: ALBUMIN 5% INJ 250 ML IV PRN (18:45)
[2017-07-01] MEDS ORDERED: hydrALAZINE HCL 20 MG/ML VIAL IV PUSH PRN (18:45)
[2017-07-01] MEDS ORDERED: SODIUM BICARBONATE 8.4% SOLN 50 MEQ/50 ML VIAL IV PUSH PRN ×2 (18:45)
[2017-07-01] MEDS ORDERED: POTASSIUM CHLOR 20 MEQ PREMIX 100 ML IV PRN ×3 (18:45)
[2017-07-01] MEDS ORDERED: CALCIUM CHLORIDE INJ 1 GM in SODIUM CHLORIDE 0.9% INJ 100 ML IV PRN (18:45)
[2017-07-01] MEDS ORDERED: MAGNESIUM SULFATE INJ 2 GM in SODIUM CHLORIDE 0.9% INJ 100 ML IV PRN ×4 (18:45)
[2017-07-01] MEDS ORDERED: ACETAMINOPHEN 325 MG TAB PO PRN (18:45)
[2017-07-01] MEDS ORDERED: RESP: RACEPINEPHRINE 2.25% 0.5 ML NEB NEB PRN (18:45)
[2017-07-01] MEDS ORDERED: oxyCODONE/ACETAMINOPHEN 5 MG/325 MG TAB PO PRN (18:45)
[2017-07-01] MEDS ORDERED: SODIUM CHLORIDE 0.9% FLUSH 10 ML FLUSH IV FLUSH PRN (18:45)
[2017-07-01] MEDS ORDERED: Post-op Orders (for Pharmacy) OTHER ONE (18:45)
[2017-07-01] MEDS ORDERED: ACETAMINOPHEN 650 MG SUPP RECTAL PRN (18:45)
--- NOTE | 2017-07-01 18:53 | PD.OP ---
cc: Kalyani Atkins MD; Nancy Rodriguez MD Operative Report Date of Surgery: Jul 01, 2017 Preoperative Diagnosis: (1) Non-ST elevation [place] (NSTEMI) (2) CHF (congestive heart failure) (3) Cardiomyopathy (4) CAD (coronary artery disease) Postoperative Diagnosis: same and bilateral pleural effusions Procedure: CABG x 3 BUSCH to LAD - fair SVG to OM1 - fair SVG to D1 - poor EVH (R) YASIR Right femoral art line placement Anesthesia: Dr. Benitez Surgeon: Kalyani Atkins Human Factors Advisor Lead(s): ALEXANDRO Link Operation and Findings: The risks, benefits, complications, treatment options, and expected outcomes were discussed with the patient. The possibilities of reaction to medication, pulmonary aspiration, perforation of viscus, bleeding, recurrent infection, the need for additional procedures, failure to diagnose a condition, and creating a complication requiring transfusion or operation were discussed with the patient. The patient concurred with the proposed plan, giving informed consent. The site of surgery properly noted/marked. The patient was taken to Operating Room, identified as John Martín and the procedure verified as CABG, EVH, YASIR. A Time Out was held and the above information confirmed. Standard monitoring lines and Smith catheter were placed. General anesthesia was induced. The patient was prepped and draped in a sterile fashion. A median sternotomy was performed and electrocautery was used to obtain hemostasis. The left internal mammary artery was procured as a pedicle from the 7th rib to the 1st rib in the usual manner. Simultaneously left greater saphenous vein was procured from the left leg using a minimally invasive endoscopic technique. The vein was prepared for anastomosis and the leg wound was irrigated and closed in 2 layers. The pericardium was opened and a pericardial sling was created using interrupted 0 silk sutures. The pericardial space was completely obliterated by dense adhesions. The adhesions were lysed using sharp and blunt dissection. The patient was heparinized for cardiopulmonary bypass and the distal mammary pedicle was instrumented for anastomosis. The heart was instrumented for cardiopulmonary bypass in the usual manner. Antegrade blood cardioplegia was employed. The patient was placed on cardiopulmonary bypass. An aortic cross- clamp was applied and the heart was arrested using cold blood cardioplegia. Antegrade cardioplegia was administered after he each anastomosis. After adequate arrest, the OM1 was opened with a [place] blade and found to be a 1 millimeter fair target with diffuse disease. Saphenous vein was approximated to the OM1 artery using a running 7 0 Prolene suture. The graft was measured for length and orientation and the proximal anastomosis was constructed to the ascending aorta using a running 5 0 Prolene suture after creating an aortotomy with a 5 millimeter punch. The 1st diagonal artery was then opened with a [place] blade and found to be a 1 millimeter poor target with diffuse disease. Saphenous vein was approximated to the D1 artery using a running 7 0 Prolene suture. The graft was measured for length and orientation and was suspended from the pericardium. The distal LAD was opened with a [place] blade and found to be a 1.5 millimeter calcified fair target. The left internal mammary artery was approximated to the LAD using a running 7 0 Prolene suture. The pedicle was attached to the epicardium using interrupted 5 0 silk suture. The patient was systemically rewarmed and received a hotshot dose of warm blood cardioplegia. The aorta was vented and the proximal anastomosis to the D1 graft was accomplished using a running 5 0 Prolene suture after creating an aortotomy was a 5 millimeter punch. The cross-clamp was removed and all proximal and distal anastomoses were examined for hemostasis. The patient was weaned from cardiopulmonary bypass. A right femoral arterial line was placed using Seldinger technique secondary to the radial line failing. Protamine was given. There was no adverse reaction. Decannulation was carried out without incident. Wound was checked for hemostasis which was obtained using electrocautery. A 36 [place] mediastinal and 32 [place] left pleural chest tubes were placed and secured to the skin with 0 silk suture. The sternum was closed with stainless steel wire. The fascia was closed with 1. PDS. The subcutaneous tissue was closed using a running 2-0 Vicryl suture. The skin was closed with 4- 0 Monocryl. Sterile dressings were placed. At the end of the operation, all sponge, instruments, and needle counts were correct. The patient was transferred to the CVICU in stable condition. Findings: Diffuse CAD. LVEF = 20% initially which improved to ~35% after revascularization. 1600ml serous bilateral pleural effusions drained. XC: 73 min CPB: 114 min Drains: mediastinal x 1 pleural x 1 Complications: none Disposition: to CVICU in stable condition Kalyani Atkins MD Jul 01, 2017 18:53
[2017-07-01] MEDS ORDERED: fentaNYL CITRATE 1000 MCG/20 ML VIAL ONE ×2 (19:32→19:34)
[2017-07-01] MEDS ORDERED: MIDAZOLAM HCL 2 MG/2 ML VIAL ONE (19:33)
[2017-07-01] MEDS ORDERED: INSULIN REGULAR (IV INFUSION) 100 UNITS in SODIUM CHLORIDE 0.9% INJ 99 ML IV PRN (20:00)
[2017-07-01] MEDS ORDERED: EPINEPHrine 2 MG/D5W 250 ML IV PRN ×2 (20:30)
[2017-07-01] MEDS ORDERED: CLEVIDIPINE INJ 50 ML IV PRN (20:30)
[2017-07-01] MEDS: ACETAMINOPHEN 1000 MG/100 ML 100 ML IV SCH (20:32)
[2017-07-01] MEDS: ATORVASTATIN 80 MG TAB PO SCH (20:33)
[2017-07-01] MEDS ORDERED: METOCLOPRAMIDE HCL 10 MG/2 ML VIAL IV PUSH SCH (21:00)
[2017-07-01] MEDS ORDERED: SODIUM CHLORIDE 0.9% FLUSH 10 ML FLUSH IV FLUSH SCH (21:00)
--- NOTE | 2017-07-01 21:01 | RADRPT ---
EXAM DATE/TIME: 07/01/2017 20:07 [facility] COMPARISON: CHEST SINGLE AP, June 23, 2017, 9:04. INDICATIONS : Post op CABG MEDICAL HISTORY : Diabetes mellitus type II. Congestive heart failure. Hepatitis C. Periferal vascular disease. Coronar y artery disease. Cirrhosis. Cardiomyopathy. Afib SURGICAL HISTORY : Abdominal aortic aneurysm repair. Pacemaker. Carotid endarterectomy. Cardiac cath. Defibrillator. ENCOUNTER: Initial ACUITY: 1 day PAIN SCORE: Non-responsive. LOCATION: Bilateral chest FINDINGS: Endotracheal tube in good position. Nasogastric tube into stomach. Pacer leads overlie right ventricl e. Central and left anterior chest tubes no pneumothorax. Minimal basilar airspace disease. Right rizwan tral line in superior vena cava. CONCLUSION: 1. Cardiomegaly with subsegmental basilar airspace disease. Support apparatus in satisfactory positio n. Stewart Cordoba MD on July 01, 2017 at 20:57 Board Certified Radiologist. This report was verified electronically.
[2017-07-02] VITALS (9 sets, daily range): BP systolic 93–142; BP diastolic 38–92; PULSE 69–83; RESP 16–20; TEMP 97.6–98; O2SAT 99–100
[2017-07-02] MEDS: RESP: ALBUTEROL 2.5 MG/IPRATROPIUM 0.5 MG NEB (PRN) NEB (00:47)
[2017-07-02] MEDS: ACETAMINOPHEN 1000 MG/100 ML 100 ML IV SCH ×2 (02:00→14:00)
[2017-07-02] MEDS: RESP: ALBUTEROL 2.5 MG/IPRATROPIUM 0.5 MG NEB (SCH) NEB ×4 (03:14→20:02)
--- NOTE | 2017-07-02 04:32 | RADRPT ---
EXAM DATE/TIME: 07/02/2017 03:34 [facility] COMPARISON: CHEST SINGLE AP, July 01, 2017, 20:07. INDICATIONS : Shortness of breath, possible pneumothorax. MEDICAL HISTORY : Diabetes mellitus type II. Congestive heart failure. Hepatitis C. PVD CAD Cirrhosis SURGICAL HISTORY : Abdominal aortic aneurysm repair. Pacemaker. Carotid endarterectomy. ENCOUNTER: Subsequent ACUITY: 2 days PAIN SCORE: Non-responsive. LOCATION: Bilateral chest FINDINGS: The patient is status post sternotomy. There is a left-sided chest tube. A pneumothorax is not clearl y seen. There is a left-sided pacing/AICD device in place. There is a right subclavian line in good p osition. The heart size is normal. The lungs are grossly clear. CONCLUSION: No pneumothorax is seen. Porfirio Thomas MD on July 02, 2017 at 4:28 Board Certified Radiologist. This report was verified electronically.
[2017-07-02 04:53] LABS: HEMATOCRIT 29.5 % (39.0-51.0); MEAN CELL VOLUME 92.6 FL (80.0-100.0); MEAN CORPUSCULAR HEMOGLOBIN 31.4 PG (27.0-34.0); MEAN CORPUSCULAR HGB CONC 33.9 % (32.0-36.0); MEAN PLATELET VOLUME 8.5 FL (7.0-11.0); PLATELET COUNT 261 TH/MM3 (150-450); RED BLOOD COUNT 3.19 MIL/MM3 (4.50-5.90); RED CELL DISTRIBUTION WIDTH 15.9 % (11.6-17.2); WHITE BLOOD COUNT 21.5 TH/MM3 (4.0-11.0)
[2017-07-02] MEDS: VANCOMYCIN INJ 1,000 MG in SODIUM CHLOR 0.9% 250 ML INJ 250 ML IV SCH ×2 (05:08→14:30)
[2017-07-02 05:25] LABS: BICARBONATE 22.7 MEQ/L (21.0-32.0); CALCIUM 9.4 MG/DL (8.5-10.1); CREATININE 1.91 MG/DL (0.60-1.30); MAGNESIUM 3.2 MG/DL (1.5-2.5)
[2017-07-02] MEDS: PANTOPRAZOLE SOD 40 MG DELAYED RELEASE TAB PO SCH (06:46)
--- NOTE | 2017-07-02 08:10 | HHI.NPPN ---
Subjective General Problems: Anemia, Heart Disease, Hypertension Renal Failure: Chronic, Stage III History of Present Illness 66-year-old male with a PMH of HTN, A. fib on Coumadin, CHF (Echo 09/17/13 w/ EF 30-35%), PVD, h/o Left BKA, AICD, Hepatitis C, Cirrhosis, DM, Chronic Back Pain , CKD, and Tobacco Abuse who presented to the emergency department with complaint of an acute onset of substernal chest pain. Additional Remarks s/p CABG. Non oliguric, positive fluid balance. Review of Systems Respiratory Respiratory Remarks Denies SOB Cardiovascular Cardiac Remarks Denies CP Gastrointestinal GI Remarks denies Abdominal pain Genitourinary Remarks denies dysuria Objective Data Data Vital Signs Date Time Temp Pulse Resp B/P (MAP) Pulse Ox O2 Delivery O2 Flow Rate FiO2 07/02/17 03:36 97.9 76 16 93/46 (62) 99 120/38 (65) 07/02/17 03:36 99 Nasal Cannula 3.00 07/02/17 03:00 72 07/02/17 00:30 100 Nasal Cannula 3 07/02/17 00:30 99 Nasal Cannula 3.00 07/02/17 00:10 Nasal Cannula 50 07/01/17 23:33 97.9 63 22 103/63 (76) 100 118/49 (72) 07/01/17 23:33 50 07/01/17 23:33 100 Mechanical Ventilator 50 07/01/17 23:00 70 07/01/17 22:20 61 123/48 07/01/17 21:43 98 50 07/01/17 21:30 50 07/01/17 21:20 99 50 07/01/17 20:45 99 75 07/01/17 20:30 75 07/01/17 20:30 67 139/48 07/01/17 19:50 60 115/42 07/01/17 19:30 59 123/39 07/01/17 19:16 98.5 07/01/17 19:15 58 07/01/17 19:15 98.5 58 13 99/54 (69) 100 98/29 (52) 07/01/17 19:15 98 75 07/01/17 19:15 100 Mechanical Ventilator 75 07/01/17 19:15 58 98/29 07/01/17 19:15 75 07/01/17 13:14 98 Nasal Cannula 2.00 07/01/17 12:00 69 07/01/17 11:00 76 07/01/17 10:46 14 07/01/17 10:00 68 07/01/17 09:00 76 -: 07/02/17 0405 07/02/17 0405 Physical Exam General Appearance: No Acute Distress Throat Throat Exam: Oral Mucosa [place] & Moist Pulmonary Resp Exam: Breath Sounds Equal, No Distress, Decreased Bases Cardiology CV Exam: Regular, Normal Sinus Rhythm Gastrointestinal/Abdomen GI Exam: Soft, Non-Tender, Non-Distended Extremeties Extremities Exam: Trace Edema (Rt. TMA and Left BKA.) Neurologic Neuro Exam: Alert, Awake, Oriented Psychiatric Psych Exam: Appropriate Responses Assessment/Plan Assessment Summary: CKD Stage III Electrolyte Assessment: Hyponatremia Problem List: (1) Chronic kidney disease (CKD) ICD Codes: N18.9 - Chronic kidney disease, unspecified Plan: Likely diabetic nephropathy. Creatinine slightly worse. Monitor. Non oliguric. Avoid fluid overload. Avoid nephrotoxic agents. (2) NSTEMI (non-ST elevated myocardial infarction) ICD Codes: I21.4 - Non-ST elevation (NSTEMI) myocardial infarction Plan: s/p CABG (3) Chronic hyponatremia ICD Codes: E87.1 - Chronic hyponatremia Status: Acute Plan: Sodium 132 asymptomatic will monitor (4) DM (diabetes mellitus) ICD Codes: E11.9 - Type 2 diabetes mellitus without complications Status: Chronic Plan: BS AC and HS Insulin dependent maintain BS 140mg/dl to 180 mg/dl Problem Qualifiers (1) Chronic kidney disease (CKD): Qualified Codes: N18.3 - Chronic kidney disease, stage 3 (moderate) Otto Richard MD Jul 02, 2017 08:10
[2017-07-02] MEDS: BETAMETHASONE DIPROPIONATE 0.05% CREAM 15 GM TOPICAL SCH ×2 (09:16→15:05)
[2017-07-02] MEDS: ASPIRIN 81 MG CHEW TAB PO SCH (09:16)
[2017-07-02] MEDS: SODIUM CHLORIDE 0.9% FLUSH 10 ML FLUSH IV FLUSH SCH ×2 (09:16→21:52)
[2017-07-02] MEDS ORDERED: SOD PHOSPHATE/SOD BIPHOSPHATE (ADULT) ENEMA 133ML RECTAL PRN (09:45)
[2017-07-02] MEDS ORDERED: GLUCAGON 1 MG/ML VIAL OTHER PRN (09:45)
[2017-07-02] MEDS ORDERED: BISACODYL 10 MG SUPP RECTAL PRN (09:45)
[2017-07-02] MEDS ORDERED: DEXTROSE 50% IN WATER 50 ML VIAL(D50) IV PUSH PRN (09:45)
[2017-07-02] MEDS ORDERED: hydrALAZINE HCL 20 MG/ML VIAL IV PUSH PRN (09:45)
--- NOTE | 2017-07-02 09:54 | PD.CAR.PN ---
CVT Progress Note CVT: POD #: 1 Subjective/Hospital Course: 66 year-old male, patient of Dr. Del Toro, Dr. Di Dutton, presented to the emergency room with substernal chest pain on 06/23/2017, also with some shortness of breath, was noted to be severely hypertensive with a systolic blood pressure close to 200. He has an extensive cardiac background. 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 Troponin was 1.98 pounds. The patient underwent cardiac cath by for [id number] AR, showed an ejection fraction of 25%, 50% left ostial lesion, 95% proximal LAD. The diagonal had an 80% stenosis in the proximal lesion, the circ was 40%. The OM 90%. The RCA 50%. He also underwent 2-D echocardiogram, that showed an EF of 45%. He had some mild right atrial dilation, mild mitral valve regurgitation, tricuspid regurgitation. We were consulted to evaluate for coronary artery bypass grafting. PMH: chronic atrial fibrillation on Coumadin, hypertension, congestive heart failure with prior EF of 30-35, EF per cath was 25%. He has an ICD placement on the left upper chest, diabetes mellitus, chronic back pain. HX femoral aortic aneurysm, hepatitis C, liver cirrhosis, chronic back pain, Peripheral arterial disease. PAST SURGICAL HISTORY: ICD placement, Left [id number] amputation, Amputation of the right forefoot, Right carotid endarterectomy, Liver biopsy, Abdominal aortic aneurysm repair. 06/29 pt spoke to his brother, now is agreeable to proceed with surgery , which is scheduled for Tuesday carotid US : unremarkable vein mapping reviewed 06/30 pain free, on schedule for surgery in am 07/02/17 No complaints, doing well Objective: Vital Signs Date Time Temp Pulse Resp B/P (MAP) Pulse Ox O2 Delivery O2 Flow Rate FiO2 07/02/17 03:36 97.9 76 16 93/46 (62) 99 120/38 (65) 07/02/17 03:36 99 Nasal Cannula 3.00 07/02/17 03:00 72 07/02/17 00:30 100 Nasal Cannula 3 07/02/17 00:30 99 Nasal Cannula 3.00 07/02/17 00:10 Nasal Cannula 50 07/01/17 23:33 97.9 63 22 103/63 (76) 100 118/49 (72) 07/01/17 23:33 50 07/01/17 23:33 100 Mechanical Ventilator 50 07/01/17 23:00 70 07/01/17 22:20 61 123/48 07/01/17 21:43 98 50 07/01/17 21:30 50 07/01/17 21:20 99 50 07/01/17 20:45 99 75 07/01/17 20:30 75 07/01/17 20:30 67 139/48 07/01/17 19:50 60 115/42 07/01/17 19:30 59 123/39 07/01/17 19:16 98.5 07/01/17 19:15 58 07/01/17 19:15 98.5 58 13 99/54 (69) 100 98/29 (52) 07/01/17 19:15 98 75 07/01/17 19:15 100 Mechanical Ventilator 75 07/01/17 19:15 58 98/29 07/01/17 19:15 75 07/01/17 13:14 98 Nasal Cannula 2.00 07/01/17 12:00 69 07/01/17 11:00 76 07/01/17 10:46 14 07/01/17 10:00 68 Labs: Laboratory Tests Test 07/02/17 04:05 White Blood Count 21.5 TH/MM3 (4.0-11.0) Red Blood Count 3.19 MIL/MM3 (4.50-5.90) Hemoglobin 10.0 GM/DL (13.0-17.0) Hematocrit 29.5 % (39.0-51.0) Mean Corpuscular Volume 92.6 FL (80.0-100.0) Mean Corpuscular Hemoglobin 31.4 PG (27.0-34.0) Mean Corpuscular Hemoglobin Concent 33.9 % (32.0-36.0) Red Cell Distribution Width 15.9 % (11.6-17.2) Platelet Count 261 TH/MM3 (150-450) Mean Platelet Volume 8.5 FL (7.0-11.0) Blood Urea Nitrogen 36 MG/DL (7-18) Creatinine 1.91 MG/DL (0.60-1.30) Random Glucose 204 MG/DL (74-106) Calcium Level 9.4 MG/DL (8.5-10.1) Magnesium Level 3.2 MG/DL (1.5-2.5) Sodium Level 139 MEQ/L (136-145) Potassium Level 4.8 MEQ/L (3.5-5.1) Chloride Level 104 MEQ/L (98-107) Carbon Dioxide Level 22.7 MEQ/L (21.0-32.0) Anion Gap 12 MEQ/L (5-15) Estimat Glomerular Filtration Rate 36 ML/MIN (>89) Result Diagram: 07/02/1740407/02/17404 Imaging: Last 24 hours Impressions Chest X-Ray 07/02/17 0500 Signed Impressions: Service Date/Time: Sunday, July 02, 2017 03:34 - CONCLUSION: No pneumothorax is seen. Porfirio Thomas MD Cardiovascular: RRR Telemetry: AFIB/paced Pulmonary: CTA GI/: NABS, NT Incision: dry and intact CT: 640 ml since OR Plan: Transfer to stepdown Up to chair/PT/OT Advance diet Levemir for glycemic control plus sliding scale No BB or diuretic today secondary to low EF and slight increase creatinine. (1) Non-ST elevation AR (NSTEMI) Plan: ASA, statin , BB for surgery on tuesday (2) CAD (coronary artery disease) (3) Cardiomyopathy Plan: Dig level 0.6 (4) Chronic atrial fibrillation Plan: resume Coumadin post surgery (5) Abdominal aneurysm (6) Status post below knee amputation of left lower extremity (7) CKD (chronic kidney disease) stage 3, GFR 30-59 ml/min Plan: creatinine 1.59 > 1.66 (8) CHF (congestive heart failure) (9) DM (diabetes mellitus) Plan: Diabetic diet , insulin SS (10) Chronic hepatitis C without mention of hepatic coma (11) Ulcer of right heel Plan: wound care following Problem Qualifiers (1) CAD (coronary artery disease): Qualified Codes: I25.119 - Atherosclerotic heart disease of [place] coronary artery with unspecified angina pectoris Kalyani Atkins MD Jul 02, 2017 09:54
[2017-07-02] MEDS ORDERED: INSULIN DETEMIR 100 UNITS/ML VIAL SQ ONE (10:30)
[2017-07-02] MEDS: MAGNESIUM HYDROXIDE SUSP 30 ML CUP PO SCH (11:00)
--- NOTE | 2017-07-02 13:24 | EKG ---
Date Performed: 07/02/2017 Time Performed: 04:16:28 PTAGE: 66 years EKG: Atrial fibrillation Demand pacing. Possible anterior infarct - age undetermined Inferior/la teral ST-T changes are nonspecific Generalized low QRS voltages Since the prior tracing, there has be en no significant change Abnormal ECG PREVIOUS TRACING : 06/23/2017 20.36 DOCTOR: Refugio [place] Interpretating Date/Time 07/02/2017 13:22:48
[2017-07-02] MEDS: DIGOXIN 0.125 MG TAB PO SCH (14:30)
[2017-07-02] MEDS: METOCLOPRAMIDE HCL 10 MG/2 ML VIAL IV PUSH SCH ×2 (14:32→18:00)
[2017-07-02] MEDS: INSULIN ASPART SUPPLEMENTAL SCALE SQ SCH ×3 (15:04→22:00)
[2017-07-02] MEDS: COLLAGENASE OINT 30 GM TUBE TOPICAL SCH (15:05)
[2017-07-02] MEDS: LACTIC ACID (AMMONIUM LACTATE) 12% LOTION 225 GM BTL TOPICAL SCH ×2 (15:05→21:52)
--- NOTE | 2017-07-02 15:17 | HHI.PR ---
Subjective Remarks f/u for CABG patient had CABG yesterday. He has no complaints. Denied any CP, SOB, palpitations, lightheadedness/dizziness. afebrile. Objective Vitals Vital Signs Date Time Temp Pulse Resp B/P (MAP) Pulse Ox O2 Delivery O2 Flow Rate FiO2 07/02/17 11:00 100 Nasal Cannula 2.00 07/02/17 11:00 98.0 83 17 142/92 (109) 100 07/02/17 11:00 83 07/02/17 10:22 100 Nasal Cannula 2.00 07/02/17 07:00 80 07/02/17 07:00 97.8 69 16 121/67 (85) 100 07/02/17 07:00 100 Nasal Cannula 2.00 07/02/17 03:36 97.9 76 16 93/46 (62) 99 120/38 (65) 07/02/17 03:36 99 Nasal Cannula 3.00 07/02/17 03:00 72 07/02/17 00:30 100 Nasal Cannula 3 07/02/17 00:30 99 Nasal Cannula 3.00 07/02/17 00:10 Nasal Cannula 50 07/01/17 23:33 97.9 63 22 103/63 (76) 100 118/49 (72) 07/01/17 23:33 50 07/01/17 23:33 100 Mechanical Ventilator 50 07/01/17 23:00 70 07/01/17 22:20 61 123/48 07/01/17 21:43 98 50 07/01/17 21:30 50 07/01/17 21:20 99 50 07/01/17 20:45 99 75 07/01/17 20:30 75 07/01/17 20:30 67 139/48 07/01/17 19:50 60 115/42 07/01/17 19:30 59 123/39 07/01/17 19:16 98.5 07/01/17 19:15 58 07/01/17 19:15 98.5 58 13 99/54 (69) 100 98/29 (52) 07/01/17 19:15 98 75 07/01/17 19:15 100 Mechanical Ventilator 75 07/01/17 19:15 58 98/29 07/01/17 19:15 75 I/O 1/26/07/01/17 07/01/17 07/02/17 07/02/17 07/02/17 07:00 15:00 23:00 07:00 15:00 23:00 Intake Total 2700 ml 1258.9 ml Output Total 575 ml 350 ml 1360 ml Balance -575 ml 2350 ml -101.1 ml Intake Oral 960 ml IV Total 340 ml 298.9 ml Autotransfusion 360 ml Other 2000 ml Output Urine Total 575 ml 350 ml 720 ml Chest Tube Drainage Total 640 ml # Voids 1 # Bowel Movements 1 Result Diagram: 07/02/17 0405 07/02/17 0405 Objective Remarks GENERAL: in NAD SKIN: thigh area with some excoriation from itching + macular rash. CARDIOVASCULAR: Regular rate and rhythm without murmurs, gallops, or rubs. RESPIRATORY: Breath sounds equal bilaterally. No accessory muscle use. GASTROINTESTINAL: Abdomen soft, non-tender, nondistended. MUSCULOSKELETAL:left BKA with right foot amputation Medications and IVs Current Medications Sodium Chloride (NS Flush) 2 ml UNSCH PRN IVF FLUSH AFTER USING IV ACCESS; Start 06/23/17 at 09:00; Stop 06/23/17 at 12:05; Status DC Metoprolol Tartrate (Lopressor Inj) 5 mg Q5M PRN IV PUSH SBP>180, DBP>95 Last administered on 06/28/17at 07:27; Start 06/23/17 at 09:30; Stop 07/01/17 at 19:26 ; Status DC Aspirin (Aspirin) 325 mg ONCE ONCE PO ; Start 06/23/17 at 09:45; Stop 06/23/17 at 09:46; Status DC Heparin Sodium (Porcine) (Heparin Inj) 5,400 units ONCE ONCE IV PUSH ; Start at 09:45; Stop 06/23/17 at 09:46; Status DC Heparin Sodium (Porcine) (Heparin Inj) 5,000 units UNSCH PRN IV PUSH APTT LESS THAN 25; Start 06/23/17 at 15:45; Stop 06/27/17 at 08:00; Status DC Heparin Sodium (Porcine) (Heparin Inj) 2,500 units UNSCH PRN IV PUSH APTT 25 TO 39; Start 06/23/17 at 15:45; Stop 06/27/17 at 08:00; Status DC Heparin Sodium/ Dextrose 250 ml @ 10 mls/hr TITRATE PRN IV Coagulation Management Last administered on 06/26/17at 12:51; Start 06/23/17 at 09:45; Stop 06/27/17 at 08:00; Status DC Sodium Chloride (NS Flush) 2 ml UNSCH PRN IV FLUSH FLUSH AFTER USING IV ACCESS ; Start 06/23/17 at 11:15 Sodium Chloride (NS Flush) 2 ml BID IV FLUSH Last administered on 07/02/17at 09: 16; Start 06/23/17 at 21:00 Acetaminophen (Tylenol) 650 mg Q4H PRN PO TEMP > 100.4; Start 06/23/17 at 11:15 ; Stop 07/01/17 at 19:24; Status DC Ondansetron HCl (Zofran Inj) 4 mg Q6H PRN IVP NAUSEA OR VOMITING; Start at 11:15; Stop 07/01/17 at 19:18; Status DC Acetaminophen (Tylenol) 650 mg Q6H PRN PO PAIN SCALE 1 TO 2; Start 06/23/17 at 11:15 Naloxone HCl (Narcan Inj) 0.4 mg UNSCH PRN IV PUSH SEE LABEL COMMENTS; Start at 11:15 Magnesium Hydroxide (Milk Of Magnesia Liq) 30 ml Q12H PRN PO Mild constipation Last administered on 06/30/17at 13:48; Start 06/23/17 at 11:15; Stop 07/02/17 at 10:50; Status DC Albuterol/ Ipratropium (Duoneb Neb) 1 ampule Q2HR NEB PRN NEB SOB/WHEEZING Last administered on 06/30/17at 06:15; Start 06/23/17 at 11:15; Stop 07/01/17 at 19:00; Status DC Dextrose (D50w (Vial) Inj) 50 ml UNSCH PRN IV PUSH HYPOGLYCEMIA-SEE COMMENTS; Start 06/23/17 at 11:15; Stop 07/01/17 at 19:18; Status DC Glucagon (Glucagon Inj) 1 mg UNSCH PRN OTHER HYPOGLYCEMIA-SEE COMMENTS; Start 06/23/17 at 11:15; Stop 07/01/17 at 19:18; Status DC Insulin Aspart (NovoLOG SUPPLEMENTAL SCALE) 1 ACHS SLIDING SCALE SQ Last administered on 06/30/17at 21:54; Start 06/23/17 at 12:00; Stop 07/01/17 at 19:18 ; Status DC Aspirin (Aspirin Chew) 162 mg DAILY PO Last administered on 06/30/17at 10:03; Start 06/24/17 at 09:00; Stop 07/01/17 at 19:34; Status DC Nitroglycerin (Nitroglycerin 2% Oint) 1 inch Q6HR TOP Last administered on 07/01at 05:38; Start 06/23/17 at 12:00; Stop 07/01/17 at 18:54; Status DC Hydralazine HCl (Apresoline Inj) 20 mg Q4H PRN IV PUSH SBP>160, DBP>90; Start 06/23/17 at 11:15; Stop 07/02/17 at 10:16; Status DC Phytonadione (Mephyton Liq) 5 mg ONCE ONCE PO Last administered on 06/23/17at 17:43; Start 06/23/17 at 14:15; Stop 06/23/17 at 15:00; Status DC Atorvastatin Calcium (Lipitor) 80 mg HS PO Last administered on 06/30/17at 21:56 ; Start 06/23/17 at 21:00 Digoxin (Lanoxin) 0.125 mg DAILY PO Last administered on 07/02/17at 14:30; Start 06/24/17 at 09:00 Furosemide (Lasix) 40 mg DAILY PO Last administered on 06/30/17at 10:03; Start 06/24/17 at 09:00; Stop 07/01/17 at 18:54; Status DC Insulin Detemir (Levemir Inj) 32 units Q12HR SQ Last administered on 06/26/17at 21:49; Start 06/23/17 at 21:00; Stop 07/01/17 at 18:54; Status DC Isosorbide Mononitrate (Imdur) 30 mg DAILY@0700 PO Last administered on at 05:36; Start 06/24/17 at 07:00; Stop 07/01/17 at 18:54; Status DC Metoprolol Succinate (Toprol Xl) 25 mg DAILY PO Last administered on 07/01/17at 09:24; Start 06/24/17 at 09:00; Stop 07/01/17 at 18:54; Status DC Morphine Sulfate (Msir) 15 mg 5 TIMES A DAY PO Last administered on 07/01/17at 09:23; Start 06/23/17 at 18:00; Stop 07/01/17 at 18:54; Status DC Sodium Chloride 1,000 ml @ 84 mls/hr [id number] IV Last administered on at 11:50; Start 06/27/17 at 12:00; Stop 06/28/17 at 14:30; Status DC Lactic Acid (Lac-Hydrin 12% Lotion) 1 applic BID TOPICAL Last administered on at 15:05; Start 06/27/17 at 21:00 Heparin Sodium (Porcine) (Heparin Inj) 10,000 units STK-MED ONCE .ROUTE ; Start 06/27/17 at 16:58; Stop 06/27/17 at 16:59; Status DC Midazolam HCl (Versed Inj) 4 mg STK-MED ONCE .ROUTE Last administered on at 17:13; Start 06/27/17 at 17:03; Stop 06/27/17 at 17:04; Status DC Fentanyl Citrate (fentaNYL INJ) 100 mcg STK-MED ONCE .ROUTE Last administered on 06/27/17at 17:14; Start 06/27/17 at 17:03; Stop 06/27/17 at 17:04; Status DC Nitroglycerin 5 ml @ As Directed STK-MED ONCE .ROUTE Last administered on at 17:04; Start 06/27/17 at 17:04; Stop 06/27/17 at 17:05; Status DC Heparin Sodium/ Sodium Chloride 1,000 ml @ As Directed STK-MED ONCE .ROUTE Last administered on 06/27/17at 17:04; Start 06/27/17 at 17:04; Stop 06/27/17 at 17:05; Status DC Sodium Chloride 500 ml @ 100 mls/hr Q5H IV ; Start 06/27/17 at 18:13; Stop at 22:12; Status DC Heparin Sodium/ Dextrose 250 ml @ 10 mls/hr TITRATE PRN IV Coagulation Management; Start 06/27/17 at 23:00 Iohexol (OMNIPAQUE 350 INJ (Patent Prosecution Attorney)) 100 ml STK-MED ONCE OTHER ; Start at 08:58; Stop 06/28/17 at 08:58; Status DC Iohexol (OMNIPAQUE 350 INJ (Patent Prosecution Attorney)) 50 ml STK-MED ONCE OTHER ; Start at 09:07; Stop 06/28/17 at 09:07; Status DC Sodium Chloride (NS Flush) 2 ml BID IV FLUSH ; Start 06/28/17 at 21:00; Stop at 21:00; Status DC Sodium Chloride (NS Flush) 2 ml UNSCH PRN IV FLUSH FLUSH AFTER USING IV ACCESS ; Start 06/28/17 at 13:00; Stop 06/28/17 at 13:56; Status DC Papaverine HCl 60 mg/Nitroglycerin 100 mcg/Diltiazem HCl 100 mg/Sodium Chloride 100 ml @ 0 mls/hr RN UROLOGY IRRIGATION Last administered on 07/01/17at 14:58; Start 06/28/17 at 13:00; Stop 07/05/17 at 12:59 Cefazolin Sodium 500 mg/Sodium Chloride 505 ml @ 0 mls/hr RN UROLOGY IRRIGATION Last administered on 07/01/17at 18:27; Start 06/28/17 at 13:00; Stop 07/05/17 at 12:59 Cefazolin Sodium/ Dextrose 50 ml @ 150 mls/hr RN UROLOGY IV ; Start 06/28/17 at 13:00; Stop 07/05/17 at 12:59 Metoprolol Tartrate (Lopressor) 12.5 mg RN UROLOGY PO ; Start 06/28/17 at 13:00; Stop 07/05/17 at 12:59 Chlorhexidine Gluconate (Hibiclens 4% Top Soln) 1 applic RN UROLOGY TOPICAL ; Start 06/28/17 at 13:00; Stop 07/05/17 at 12:59 Insulin Human Regular 100 units/ Sodium Chloride 100 ml @ 3 mls/hr TITRATE PRN IV for blood glucose control; Start 06/28/17 at 13:00; Stop 07/01/17 at 19:01; Status DC Dextrose (D50w (Vial) Inj) 50 ml UNSCH PRN IV PUSH HYPOGLYCEMIA-SEE COMMENTS; Start 06/28/17 at 13:00; Stop 07/01/17 at 19:17; Status DC Collagenase (Santyl Oint) 1 applic DAILY TOPICAL Last administered on at 15:05; Start 06/29/17 at 09:00 Betamethasone Dipropionate (Diprosone 0.05% Cream) 1 applic BID TOPICAL Last administered on 07/02/17at 15:05; Start 06/30/17 at 16:15 Midazolam HCl (Versed Inj) 2 mg NOW ONCE IV ; Start 06/30/17 at 19:45; Stop at 19:46; Status Cancel Fentanyl Citrate (fentaNYL INJ) 50 mcg NOW ONCE IV ; Start 06/30/17 at 19:45; Stop 06/30/17 at 19:46; Status DC Midazolam HCl (Versed Inj) 1 mg NOW ONCE IV ; Start 06/30/17 at 19:45; Stop at 19:46; Status DC Fentanyl Citrate (fentaNYL INJ) 25 mcg NOW ONCE IV ; Start 06/30/17 at 20:00; Stop 06/30/17 at 20:00; Status DC Sodium Biphosphate/ Sodium Phosphate (Fleets Enema (Adult)) 133 ml NOW ONCE RECTAL ; Start 06/30/17 at 20:00; Stop 06/30/17 at 20:01; Status DC Methylprednisolone Sodium Succinate (SoluMEDROL INJ) 125 mg STK-MED ONCE .ROUTE Last administered on 07/01/17at 14:10; Start 07/01/17 at 12:40; Stop 07/01/17 at 12:41; Status DC Heparin Sodium (Porcine) (Heparin Inj) 40,000 units STK-MED ONCE .ROUTE Last administered on 07/01/17at 13:00; Start 07/01/17 at 12:40; Stop 07/01/17 at 12:41 ; Status DC Vancomycin HCl (Vancomycin Inj) 3,000 mg STK-MED ONCE .ROUTE Last administered on 07/01/17at 14:00; Start 07/01/17 at 12:40; Stop 07/01/17 at 12:41; Status DC Cefazolin Sodium/ Dextrose 50 ml @ As Directed STK-MED ONCE .ROUTE Last administered on 07/01/17at 14:03; Start 07/01/17 at 12:40; Stop 07/01/17 at 12:41 ; Status DC Multi-Ingred Electrol/Mineral Irrig 2,000 ml @ As Directed STK-MED ONCE .ROUTE ; Start 07/01/17 at 13:14; Stop 07/01/17 at 13:15; Status DC Potassium Chloride (KCl Inj) 2 meq STK-MED ONCE .ROUTE ; Start 07/01/17 at 13:15 ; Stop 07/01/17 at 13:16; Status DC Potassium Chloride (KCl Inj) 4 meq STK-MED ONCE .ROUTE ; Start 07/01/17 at 13:15 ; Stop 07/01/17 at 13:16; Status DC Albumin Human 50 ml @ As Directed STK-MED ONCE IV ; Start 07/01/17 at 13:16; Stop 07/01/17 at 13:17; Status DC Mannitol 100 ml @ As Directed STK-MED ONCE .ROUTE ; Start 07/01/17 at 13:16; Stop 07/01/17 at 13:17; Status DC Sodium Bicarbonate 100 ml @ As Directed STK-MED ONCE .ROUTE ; Start 07/01/17 at 13:17; Stop 07/01/17 at 13:18; Status DC Heparin Sodium (Porcine) (Heparin Inj) 30,000 units STK-MED ONCE .ROUTE ; Start 07/01/17 at 13:17; Stop 07/01/17 at 13:18; Status DC Sodium Chloride (NS Flush) 2 ml BID IV FLUSH ; Start 07/01/17 at 21:00; Status UNV Sodium Chloride (NS Flush) 2 ml UNSCH PRN IV FLUSH FLUSH AFTER USING IV ACCESS ; Start 07/01/17 at 18:45; Status UNV Clevidipine 50 ml @ 2 mls/hr TITRATE PRN IV Maintain BP < 140/90 mmHg; Start at 20:30 Albumin Human 250 ml @ 250 mls/hr UNSCH PRN IV SEE LABEL COMMENTS Last administered on 07/01/17at 20:44; Start 07/01/17 at 18:45 Lactated Ringer's 500 ml @ 500 mls/hr Q1H PRN IV SEE LABEL COMMENTS; Start at 18:35 Miscellaneous Information (Post-op Orders (for Pharmacy)) STAT ONCE OTHER ; Start 07/01/17 at 18:45; Stop 07/01/17 at 19:12; Status DC Vancomycin HCl 1000 mg/Sodium Chloride 250 ml @ 250 mls/hr Q12H IV Last administered on 07/02/17at 14:30; Start 07/02/17 at 02:00; Stop 07/03/17 at 02:59 Aspirin (Aspirin Chew) 81 mg DAILY PO Last administered on 07/02/17at 09:16; Start 07/02/17 at 09:00 Pantoprazole Sodium (Protonix) 40 mg DAILY@06 PO Last administered on at 06:46; Start 07/02/17 at 06:00 Metoclopramide HCl (Reglan Inj) 10 mg ACHS IV PUSH ; Start 07/01/17 at 21:00; Stop 07/02/17 at 10:38; Status DC Acetaminophen (Tylenol) 650 mg Q4H PRN PO TEMPERATURE > 101 F; Start 07/01/17 at 18:45 Acetaminophen (Tylenol Supp) 650 mg Q4H PRN RECTAL TEMPERATURE > 101 F; Start 07/01/17 at 18:45 Acetaminophen 100 ml @ 400 mls/hr Q6H IV Last administered on 07/02/17at 02:00 ; Start 07/01/17 at 20:00; Stop 07/02/17 at 14:14; Status DC Oxycodone/ Acetaminophen (Percocet 5-325 Mg) 2 tab Q3H PRN PO PAIN SCALE 6 TO 10 Last administered on 07/02/17at 09:14; Start 07/01/17 at 18:45; Stop 07/02/17 at 10:50; Status DC Fentanyl Citrate (fentaNYL INJ) 50 mcg Q1H PRN IV PUSH BREAKTHROUGH PAIN Last administered on 07/02/17at 06:42; Start 07/01/17 at 18:45 Ondansetron HCl (Zofran Inj) 4 mg Q6H PRN IV PUSH NAUSEA OR VOMITING; Start at 18:45 Hydralazine HCl (Apresoline Inj) 10 mg Q4H PRN IV PUSH SEE LABEL COMMENTS; Start 07/01/17 at 18:45 Metoprolol Tartrate (Lopressor Inj) 2.5 mg Q1H PRN IV PUSH SEE LABEL COMMENTS; Start 07/01/17 at 18:45 Potassium Chloride 100 ml @ 50 mls/hr UNSCH PRN IV SEE LABEL COMMENTS; Start 07/01/17 at 18:45 Potassium Chloride 100 ml @ 50 mls/hr UNSCH PRN IV SEE LABEL COMMENTS; Start 07/01/17 at 18:45 Potassium Chloride 100 ml @ 50 mls/hr UNSCH PRN IV SEE LABEL COMMENTS; Start 07/01/17 at 18:45 Potassium Chloride (KCl) 20 meq UNSCH PRN PO SEE LABEL COMMENTS; Start at 18:45 Potassium Chloride (KCl) 40 meq UNSCH PRN PO SEE LABEL COMMENTS; Start at 18:45 Magnesium Sulfate 2 gm/Sodium Chloride 104 ml @ 100 mls/hr UNSCH PRN IV SEE LABEL COMMENTS; Start 07/01/17 at 18:45 Magnesium Sulfate 2 gm/Sodium Chloride 104 ml @ 50 mls/hr UNSCH PRN IV SEE LABEL COMMENTS; Start 07/01/17 at 18:45 Calcium Chloride 1 gm/Sodium Chloride 110 ml @ 100 mls/hr UNSCH PRN IV SEE LABEL COMMENTS Last administered on 07/01/17at 22:20; Start 07/01/17 at 18:45; Stop 07/01/17 at 22:21; Status DC Calcium Chloride (Calcium Chloride Inj) 0.5 gm UNSCH PRN IV PUSH SEE LABEL COMMENTS; Start 07/01/17 at 18:45 Insulin Human Regular 100 units/ Sodium Chloride 100 ml @ 3 mls/hr TITRATE PRN IV for blood glucose control Last administered on 07/01/17at 19:15; Start at 20:00; Stop 07/02/17 at 14:00; Status DC Dextrose (D50w (Vial) Inj) 50 ml UNSCH PRN IV PUSH HYPOGLYCEMIA-SEE COMMENTS; Start 07/01/17 at 18:45; Stop 07/02/17 at 14:00; Status DC Sodium Bicarbonate (Sodium Bicarbonate 8.4% Inj) 50 meq UNSCH PRN IV PUSH SEE LABEL COMMENTS; Start 07/01/17 at 18:45 Sodium Bicarbonate (Sodium Bicarbonate 8.4% Inj) 100 meq UNSCH PRN IV PUSH SEE LABEL COMMENTS; Start 07/01/17 at 18:45 Albuterol/ Ipratropium (Duoneb Neb) 1 ampule Q6HR NEB NEB Last administered on 07/02/17at 10:21; Start 07/01/17 at 22:00; Stop 07/02/17 at 10:23; Status DC Albuterol/ Ipratropium (Duoneb Neb) 1 ampule Q2HR NEB PRN NEB WHEEZING Last administered on 07/02/17at 00:47; Start 07/01/17 at 18:45 Racepinephrine (Racepinephrine 2.25% Neb) 0.5 ml UNSCH X1 PRN NEB STRIDOR; Start 07/01/17 at 18:45; Stop 07/01/17 at 23:59; Status DC Fentanyl Citrate (fentaNYL INJ) 1,000 mcg STK-MED ONCE .ROUTE ; Start 07/01/17 at 19:32; Stop 07/01/17 at 19:33; Status DC Midazolam HCl (Versed Inj) 10 mg STK-MED ONCE .ROUTE ; Start 07/01/17 at 19:33; Stop 07/01/17 at 19:34; Status DC Fentanyl Citrate (fentaNYL INJ) 1,000 mcg STK-MED ONCE .ROUTE ; Start 07/01/17 at 19:34; Stop 07/01/17 at 19:35; Status DC Epinephrine HCl 2 mg/Dextrose 250 ml @ 15 mls/hr TITRATE PRN IV Blood Pressure Management Last administered on 07/01/17at 19:15; Start 07/01/17 at 20: 30 Albuterol/ Ipratropium (Duoneb Neb) 1 ampule Q6HR WHILE AWAKE NEB NEB Last administered on 07/02/17at 13:13; Start 07/02/17 at 14:00; Stop 07/04/17 at 13:59 Metoclopramide HCl (Reglan Inj) 10 mg Q6HR IV PUSH Last administered on at 14:32; Start 07/02/17 at 12:00 Docusate Sodium (Colace) 100 mg BID PO ; Start 07/02/17 at 21:00 Multivitamins/ Minerals Therapeutic (Theragran M Tab) 1 tab DAILY PO ; Start at 09:00 Magnesium Hydroxide (Milk Of Magnesia Liq) 30 ml DAILY PO ; Start 07/02/17 at 11 :00 Bisacodyl (Dulcolax Supp) 10 mg UNSCH PRN RECTAL SEE LABEL COMMENTS; Start at 09:45 Polyethylene Glycol (Miralax) 17 gm DAILY PO ; Start 07/03/17 at 09:00 Sennosides (Senokot) 8.6 mg HS PO ; Start 07/02/17 at 21:00 Sodium Biphosphate/ Sodium Phosphate (Fleets Enema (Adult)) 118 ml UNSCH PRN RECTAL SEE LABEL COMMENTS; Start 07/02/17 at 09:45 Insulin Detemir (Levemir Inj) 20 units ONCE ONCE SQ Last administered on at 10:30; Start 07/02/17 at 10:30; Stop 07/02/17 at 10:31; Status DC Insulin Aspart (NovoLOG SUPPLEMENTAL SCALE) 1 02,06,10,14,18,22 SQ Last administered on 07/02/17at 15:04; Start 07/02/17 at 14:00 Dextrose (D50w (Vial) Inj) 50 ml UNSCH PRN IV PUSH HYPOGLYCEMIA-SEE COMMENTS; Start 07/02/17 at 09:45 Glucagon (Glucagon Inj) 1 mg UNSCH PRN OTHER HYPOGLYCEMIA-SEE COMMENTS; Start 07/02/17 at 09:45 Hydralazine HCl (Apresoline Inj) 10 mg Q30M PRN IV PUSH SBP>160, DBP>90; Start 07/02/17 at 09:45 Morphine Sulfate (Msir) 15 mg Q6H PRN PO PAIN GREATER THAN 5; Start 07/02/17 at 11:00 A/P Problem List: (1) Non-ST elevation [place] (NSTEMI) ICD Code: I21.4 - Non-ST elevation (NSTEMI) myocardial infarction Status: Acute Assessment and Plan 66 years old man with 1. NSTEMI/Severe CAD He had a heart catheterization done on 06/28 showing severe CAD with severe 95 % prox stenosis of a large LAD. s/p CABG on 07/[address] Dumont . 2. CHF: Chronic. Systolic. Echo 09/07/13 w/ EF 30-35%, s/p AICD No evidence of fluid overload. BNP mildly elevated @230, CXR w/ no acute findings Continue current regimen. 3. Supra Therapeutic INR Treat with Vit K 5mg PO x 1 INR now 1.7. Now on Coumadin and to sparing surgery. 4. Leukocytosis: WBC 13.3, CXR w/ no acute findings. UA negative. Clinically patient does not look like he has any infectious process. This may be due to his NSTEMI. resolved. 5. A-fib: Chronic. Resume home Digoxin/Metoprolol. INR supra therapeutic, Hold Coumadin. restart coumadin per [facility]. 6. 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 7. DM: Sliding scale w/ Accu-Cheks, resume home Insulin 8. Tobacco Abuse: Ativan prn, no NicoDerm to avoid vasoconstriction. 9: Pruritic rash improved on betamethasone cream. 10. DVT Prophylaxis: Heparin Michelle Osorio MD Jul 02, 2017 15:17
--- NOTE | 2017-07-02 16:10 | PD.CARD.PN ---
Subjective Subjective Remarks Tolerated CABG well, no angina or CHF Objective Medications Current Medications Medications (Trade) Dose Ordered Sig/Kelly Route Start Time Stop Time Status Last Admin (NS Flush) 2 ml UNSCH PRN IV FLUSH 06/23/17 11:15 (NS Flush) 2 ml BID IV FLUSH 06/23/17 21:00 07/02/17 09:16 (Tylenol) 650 mg Q6H PRN PO 06/23/17 11:15 (Narcan Inj) 0.4 mg UNSCH PRN IV PUSH 06/23/17 11:15 (Lipitor) 80 mg HS PO 06/23/17 21:00 06/30/17 21:56 (Lanoxin) 0.125 mg DAILY PO 06/24/17 09:00 07/02/17 14:30 (Lac-Hydrin 12% Lotion) 1 applic BID TOPICAL 06/27/17 21:00 07/02/17 15:05 Heparin Sodium/ Dextrose 250 ml @ 10 mls/hr TITRATE PRN IV 06/27/17 23:00 Papaverine HCl 60 mg/Nitroglycerin 100 mcg/Diltiazem HCl 100 mg/Sodium Chloride 100 ml @ 0 mls/hr SHEET TAKER IRRIGATION 06/28/17 13:00 07/05/17 12:59 07/01/17 14:58 Cefazolin Sodium 500 mg/Sodium Chloride 505 ml @ 0 mls/hr SHEET TAKER IRRIGATION 06/28/17 13:00 07/05/17 12:59 07/01/17 18:27 Cefazolin Sodium/ Dextrose 50 ml @ 150 mls/hr SHEET TAKER IV 06/28/17 13:00 07/05/17 12:59 (Lopressor) 12.5 mg SHEET TAKER PO 06/28/17 13:00 07/05/17 12:59 (Hibiclens 4% Top Soln) 1 applic SHEET TAKER TOPICAL 06/28/17 13:00 07/05/17 12:59 (Santyl Oint) 1 applic DAILY TOPICAL 06/29/17 09:00 07/02/17 15:05 (Diprosone 0.05% Cream) 1 applic BID TOPICAL 06/30/17 16:15 07/02/17 15:05 Clevidipine 50 ml @ 2 mls/hr TITRATE PRN IV 07/01/17 20:30 Albumin Human 250 ml @ 250 mls/hr UNSCH PRN IV 07/01/17 18:45 07/01/17 20:44 Lactated Ringer's 500 ml @ 500 mls/hr Q1H PRN IV 07/01/17 18:35 Vancomycin HCl 1000 mg/Sodium Chloride 250 ml @ 250 mls/hr Q12H IV 07/02/17 02:00 07/03/17 02:59 07/02/17 14:30 (Aspirin Chew) 81 mg DAILY PO 07/02/17 09:00 07/02/17 09:16 (Protonix) 40 mg DAILY@06 PO 07/02/17 06:00 07/02/17 06:46 (Tylenol) 650 mg Q4H PRN PO 07/01/17 18:45 (Tylenol Supp) 650 mg Q4H PRN RECTAL 07/01/17 18:45 (fentaNYL INJ) 50 mcg Q1H PRN IV PUSH 07/01/17 18:45 07/02/17 06:42 (Zofran Inj) 4 mg Q6H PRN IV PUSH 07/01/17 18:45 (Apresoline Inj) 10 mg Q4H PRN IV PUSH 07/01/17 18:45 (Lopressor Inj) 2.5 mg Q1H PRN IV PUSH 07/01/17 18:45 Potassium Chloride 100 ml @ 50 mls/hr UNSCH PRN IV 07/01/17 18:45 Potassium Chloride 100 ml @ 50 mls/hr UNSCH PRN IV 07/01/17 18:45 Potassium Chloride 100 ml @ 50 mls/hr UNSCH PRN IV 07/01/17 18:45 (KCl) 20 meq UNSCH PRN PO 07/01/17 18:45 (KCl) 40 meq UNSCH PRN PO 07/01/17 18:45 Magnesium Sulfate 2 gm/Sodium Chloride 104 ml @ 100 mls/hr UNSCH PRN IV 07/01/17 18:45 Magnesium Sulfate 2 gm/Sodium Chloride 104 ml @ 50 mls/hr UNSCH PRN IV 07/01/17 18:45 (Calcium Chloride Inj) 0.5 gm UNSCH PRN IV PUSH 07/01/17 18:45 (Sodium Bicarbonate 8.4% Inj) 50 meq UNSCH PRN IV PUSH 07/01/17 18:45 (Sodium Bicarbonate 8.4% Inj) 100 meq UNSCH PRN IV PUSH 07/01/17 18:45 (Duoneb Neb) 1 ampule Q2HR NEB PRN NEB 07/01/17 18:45 07/02/17 00:47 Epinephrine HCl 2 mg/Dextrose 250 ml @ 15 mls/hr TITRATE PRN IV 07/01/17 20:30 07/01/17 19:15 (Duoneb Neb) 1 ampule Q6HR WHILE AWAKE NEB NEB 07/02/17 14:00 07/04/17 13:59 07/02/17 13:13 (Reglan Inj) 10 mg Q6HR IV PUSH 07/02/17 12:00 07/02/17 14:32 (Colace) 100 mg BID PO 07/02/17 21:00 (Theragran M Tab) 1 tab DAILY PO 07/03/17 09:00 (Milk Of Magnesia Liq) 30 ml DAILY PO 07/02/17 11:00 (Dulcolax Supp) 10 mg UNSCH PRN RECTAL 07/02/17 09:45 (Miralax) 17 gm DAILY PO 07/03/17 09:00 (Senokot) 8.6 mg HS PO 07/02/17 21:00 (Fleets Enema (Adult)) 118 ml UNSCH PRN RECTAL 07/02/17 09:45 (NovoLOG SUPPLEMENTAL SCALE) 1 02,06,10,14,18,22 SQ 07/02/17 14:00 07/02/17 15:04 (D50w (Vial) Inj) 50 ml UNSCH PRN IV PUSH 07/02/17 09:45 (Glucagon Inj) 1 mg UNSCH PRN OTHER 07/02/17 09:45 (Apresoline Inj) 10 mg Q30M PRN IV PUSH 07/02/17 09:45 (Msir) 15 mg Q6H PRN PO 07/02/17 11:00 Vital Signs / I&O Vital Signs Date Time Temp Pulse Resp B/P (MAP) Pulse Ox O2 Delivery O2 Flow Rate FiO2 07/02/17 11:00 100 Nasal Cannula 2.00 07/02/17 11:00 98.0 83 17 142/92 (109) 100 07/02/17 11:00 83 07/02/17 10:22 100 Nasal Cannula 2.00 07/02/17 07:00 80 07/02/17 07:00 97.8 69 16 121/67 (85) 100 07/02/17 07:00 100 Nasal Cannula 2.00 07/02/17 03:36 97.9 76 16 93/46 (62) 99 120/38 (65) 07/02/17 03:36 99 Nasal Cannula 3.00 07/02/17 03:00 72 07/02/17 00:30 100 Nasal Cannula 3 07/02/17 00:30 99 Nasal Cannula 3.00 07/02/17 00:10 Nasal Cannula 50 07/01/17 23:33 97.9 63 22 103/63 (76) 100 118/49 (72) 07/01/17 23:33 50 07/01/17 23:33 100 Mechanical Ventilator 50 07/01/17 23:00 70 07/01/17 22:20 61 123/48 07/01/17 21:43 98 50 07/01/17 21:30 50 07/01/17 21:20 99 50 07/01/17 20:45 99 75 07/01/17 20:30 75 07/01/17 20:30 67 139/48 07/01/17 19:50 60 115/42 07/01/17 19:30 59 123/39 07/01/17 19:16 98.5 07/01/17 19:15 58 07/01/17 19:15 98.5 58 13 99/54 (69) 100 98/29 (52) 07/01/17 19:15 98 75 07/01/17 19:15 100 Mechanical Ventilator 75 07/01/17 19:15 58 98/29 07/01/17 19:15 75 I/O 07/01/17 07/01/17 07/01/17 07/02/17 07/02/17 07/02/17 07:00 15:00 23:00 07:00 15:00 23:00 Intake Total 2700 ml 1258.9 ml Output Total 575 ml 350 ml 1360 ml Balance -575 ml 2350 ml -101.1 ml Intake Oral 960 ml IV Total 340 ml 298.9 ml Autotransfusion 360 ml Other 2000 ml Output Urine Total 575 ml 350 ml 720 ml Chest Tube Drainage Total 640 ml # Voids 1 # Bowel Movements 1 Physical Exam GENERAL: In NAD SKIN: Warm and dry. HEAD: Normocephalic. EYES: No scleral icterus. No injection or drainage. NECK: Supple, trachea midline. No JVD or lymphadenopathy. CARDIOVASCULAR: Irregular rate and rhythm, without murmurs, gallops, or rubs. RESPIRATORY: Breath sounds equal bilaterally. No accessory muscle use. GASTROINTESTINAL: Abdomen soft, non-tender, nondistended. MUSCULOSKELETAL: No cyanosis, mild LE edema. S/p bilat LE amputations Laboratory Laboratory Tests Test 07/02/17 04:05 White Blood Count 21.5 TH/MM3 Red Blood Count 3.19 MIL/MM3 Hemoglobin 10.0 GM/DL Hematocrit 29.5 % Mean Corpuscular Volume 92.6 FL Mean Corpuscular Hemoglobin 31.4 PG Mean Corpuscular Hemoglobin Concent 33.9 % Red Cell Distribution Width 15.9 % Platelet Count 261 TH/MM3 Mean Platelet Volume 8.5 FL Blood Urea Nitrogen 36 MG/DL Creatinine 1.91 MG/DL Random Glucose 204 MG/DL Calcium Level 9.4 MG/DL Magnesium Level 3.2 MG/DL Sodium Level 139 MEQ/L Potassium Level 4.8 MEQ/L Chloride Level 104 MEQ/L Carbon Dioxide Level 22.7 MEQ/L Anion Gap 12 MEQ/L Estimat Glomerular Filtration Rate 36 ML/MIN Imaging Last 24 hours Impressions Chest X-Ray 07/02/17 0500 Signed Impressions: Service Date/Time: Sunday, July 02, 2017 03:34 - CONCLUSION: No pneumothorax is seen. Porfirio Thomas MD Assessment and Plan Problem List: (1) Non-ST elevation RI (NSTEMI) ICD Codes: I21.4 - Non-ST elevation (NSTEMI) myocardial infarction Status: Acute (2) CAD (coronary artery disease) ICD Codes: I25.10 - Atherosclerotic heart disease of [place] coronary artery without angina pectoris Status: Chronic (3) Cardiomyopathy ICD Codes: I42.9 - Cardiomyopathy, unspecified (4) Chronic atrial fibrillation ICD Codes: I48.2 - Chronic atrial fibrillation Status: Chronic (5) Abdominal aneurysm ICD Codes: I71.4 - Abdominal aortic aneurysm Status: Acute (6) Status post below knee amputation of left lower extremity ICD Codes: Z89.512 - Acquired absence of left leg below knee Status: Acute (7) CKD (chronic kidney disease) stage 3, GFR 30-59 ml/min ICD Codes: N18.3 - Chronic kidney disease, stage 3 (moderate) Status: Chronic (8) CHF (congestive heart failure) ICD Codes: I50.9 - Heart failure, unspecified Status: Chronic (9) DM (diabetes mellitus) ICD Codes: E11.9 - Type 2 diabetes mellitus without complications Status: Chronic (10) Chronic hepatitis C without mention of hepatic coma ICD Codes: B18.2 - Chronic hepatitis C virus infection Status: Acute (11) Ulcer of right heel ICD Codes: L97.419 - Non-pressure chronic ulcer of right heel and midfoot with unspecified severity Assessment and Plan No angina or CHF. Cath showed severe CAD with severe 95% prox stenosis of a large LAD. CABG yest. Continue ICU care. Aggressive risk factor modification. Problem Qualifiers (1) CAD (coronary artery disease): Qualified Codes: I25.119 - Atherosclerotic heart disease of [place] coronary artery with unspecified angina pectoris Nancy Rodriguez MD Jul 02, 2017 16:10
[2017-07-02] MEDS: MORPHINE SULFATE 15 MG TAB PO PRN (18:33)
[2017-07-02] MEDS: SENNOSIDES 8.6 MG TAB PO SCH (21:00)
[2017-07-02] MEDS: ATORVASTATIN 80 MG TAB PO SCH (21:51)
[2017-07-02] MEDS: DOCUSATE SODIUM 100 MG CAP PO SCH (21:51)
[2017-07-03] VITALS (21 sets, daily range): BP systolic 97–172; BP diastolic 50–94; PULSE 59–288; RESP 18–24; TEMP 97.7–98.8; O2SAT 95–100
[2017-07-03] MEDS: METOCLOPRAMIDE HCL 10 MG/2 ML VIAL IV PUSH SCH ×5 (00:32→23:34)
[2017-07-03] MEDS: VANCOMYCIN INJ 1,000 MG in SODIUM CHLOR 0.9% 250 ML INJ 250 ML IV SCH (00:33)
[2017-07-03] MEDS: INSULIN ASPART SUPPLEMENTAL SCALE SQ SCH ×6 (02:00→21:58)
[2017-07-03 04:13] LABS: AUTOMATED NEUTROPHIL # 15.4 TH/MM3 (1.8-7.7); BASOPHIL # 0.1 TH/MM3 (0-0.2); BASOPHIL % 0.7 % (0.0-2.0); EOSINOPHIL % 0.1 % (0.0-4.0); HEMATOCRIT 28.2 % (39.0-51.0); HEMOGLOBIN 9.5 GM/DL (13.0-17.0); LYMPH % 8.4 % (9.0-44.0); LYMPHOCYTE # 1.6 TH/MM3 (1.0-4.8); MEAN CELL VOLUME 92.2 FL (80.0-100.0); MEAN CORPUSCULAR HEMOGLOBIN 31.1 PG (27.0-34.0); MEAN CORPUSCULAR HGB CONC 33.8 % (32.0-36.0); MEAN PLATELET VOLUME 8.2 FL (7.0-11.0); MONO % 8.1 % (0.0-8.0); MONOCYTE # 1.5 TH/MM3 (0-0.9); NEUT % 82.7 % (16.0-70.0); PLATELET COUNT 166 TH/MM3 (150-450); RED BLOOD COUNT 3.05 MIL/MM3 (4.50-5.90); RED CELL DISTRIBUTION WIDTH 15.6 % (11.6-17.2); WHITE BLOOD COUNT 18.6 TH/MM3 (4.0-11.0)
[2017-07-03 04:47] LABS: BICARBONATE 26.1 MEQ/L (21.0-32.0); CREATININE 1.68 MG/DL (0.60-1.30); MAGNESIUM 2.6 MG/DL (1.5-2.5)
[2017-07-03] MEDS: PANTOPRAZOLE SOD 40 MG DELAYED RELEASE TAB PO SCH (06:49)
[2017-07-03] MEDS: RESP: ALBUTEROL 2.5 MG/IPRATROPIUM 0.5 MG NEB (SCH) NEB ×3 (07:20→20:54)
[2017-07-03] MEDS: MORPHINE SULFATE 15 MG TAB PO PRN ×3 (07:43→21:02)
--- NOTE | 2017-07-03 08:17 | HHI.NPPN ---
Subjective General Problems: Anemia, Heart Disease, Hypertension Renal Failure: Chronic, Stage III History of Present Illness 66-year-old male with a PMH of HTN, A. fib on Coumadin, CHF (Echo 09/17/13 w/ EF 30-35%), PVD, h/o Left BKA, AICD, Hepatitis C, Cirrhosis, DM, Chronic Back Pain , CKD, and Tobacco Abuse who presented to the emergency department with complaint of an acute onset of substernal chest pain. Additional Remarks Excellent urine output. Renal function has improved. Review of Systems General Constitutional: Fatigue Respiratory Respiratory Remarks Denies SOB Cardiovascular Cardiac Remarks Denies CP Gastrointestinal GI Remarks denies Abdominal pain Genitourinary Remarks denies dysuria Objective Data Data Vital Signs Date Time Temp Pulse Resp B/P (MAP) Pulse Ox O2 Delivery O2 Flow Rate FiO2 07/03/17 07:20 97 21 07/03/17 04:00 97 Room Air 07/03/17 04:00 98.0 88 18 148/73 (98) 97 07/03/17 04:00 88 07/03/17 00:30 99 Room Air 07/03/17 00:00 98.2 59 20 130/73 (92) 99 07/03/17 00:00 99 Nasal Cannula 1.00 07/03/17 00:00 60 07/02/17 20:24 99 Nasal Cannula 2.00 07/02/17 20:00 70 07/02/17 20:00 99 Nasal Cannula 2.00 07/02/17 20:00 97.6 69 20 128/71 (90) 99 07/02/17 15:00 81 07/02/17 15:00 99 Nasal Cannula 2.00 07/02/17 15:00 97.8 81 16 139/74 (95) 99 Arterial Line 07/02/17 11:00 100 Nasal Cannula 2.00 07/02/17 11:00 98.0 83 17 142/92 (109) 100 07/02/17 11:00 83 07/02/17 10:22 100 Nasal Cannula 2.00 -: 07/03/17 0325 07/03/17 0325 Physical Exam General Appearance: No Acute Distress Throat Throat Exam: Oral Mucosa Encinal & Moist Pulmonary Resp Exam: Breath Sounds Equal, No Distress, Decreased Bases Cardiology CV Exam: Regular, Normal Sinus Rhythm Gastrointestinal/Abdomen GI Exam: Soft, Non-Tender, Non-Distended Extremeties Extremities Exam: Trace Edema (Rt. TMA and Left BKA.) Neurologic Neuro Exam: Alert, Awake, Oriented Psychiatric Psych Exam: Appropriate Responses Assessment/Plan Assessment Summary: CKD Stage III Electrolyte Assessment: Hyponatremia Problem List: (1) Chronic kidney disease (CKD) ICD Codes: N18.9 - Chronic kidney disease, unspecified Plan: Acute on chronic kidney disease. Renal function has improved, stable. Taper off fluids. Avoid fluid overload. Avoid nephrotoxic agents. (2) NSTEMI (non-ST elevated myocardial infarction) ICD Codes: I21.4 - Non-ST elevation (NSTEMI) myocardial infarction Plan: s/p CABG (3) Chronic hyponatremia ICD Codes: E87.1 - Chronic hyponatremia Status: Acute Plan: serum Na is 135, stable. (4) DM (diabetes mellitus) ICD Codes: E11.9 - Type 2 diabetes mellitus without complications Status: Chronic Plan: BS AC and HS Insulin dependent maintain BS 140mg/dl to 180 mg/dl Problem Qualifiers (1) Chronic kidney disease (CKD): Qualified Codes: N18.3 - Chronic kidney disease, stage 3 (moderate) Otto Richard MD Jul 03, 2017 08:17
[2017-07-03] MEDS: MAGNESIUM HYDROXIDE SUSP 30 ML CUP PO SCH (09:00)
--- NOTE | 2017-07-03 09:20 | PD.CAR.PN ---
CVT Progress Note CVT: POD #: 2 Subjective/Hospital Course: 66 year-old male, patient of Dr. Del Toro, Dr. Di Dutton, presented to the emergency room with substernal chest pain on 06/23/2017, also with some shortness of breath, was noted to be severely hypertensive with a systolic blood pressure close to 200. He has an extensive cardiac background. 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 Troponin was 1.98 pounds. The patient underwent cardiac cath by for [id number] [place], showed an ejection fraction of 25%, 50% left ostial lesion, 95% proximal LAD. The diagonal had an 80% stenosis in the proximal lesion, the circ was 40%. The OM 90%. The RCA 50%. He also underwent 2-D echocardiogram, that showed an EF of 45%. He had some mild right atrial dilation, mild mitral valve regurgitation, tricuspid regurgitation. We were consulted to evaluate for coronary artery bypass grafting. PMH: chronic atrial fibrillation on Coumadin, hypertension, congestive heart failure with prior EF of 30-35, EF per cath was 25%. He has an ICD placement on the left upper chest, diabetes mellitus, chronic back pain. HX femoral aortic aneurysm, hepatitis C, liver cirrhosis, chronic back pain, Peripheral arterial disease. PAST SURGICAL HISTORY: ICD placement, Left [id number] amputation, Amputation of the right forefoot, Right carotid endarterectomy, Liver biopsy, Abdominal aortic aneurysm repair. 06/29 pt spoke to his brother, now is agreeable to proceed with surgery , which is scheduled for Tuesday carotid US : unremarkable vein mapping reviewed 06/30 pain free, on schedule for surgery in am 07/02/17 No complaints, doing well 07/03/17 Short run of wide complex tachy last night which resolved on its own. copious chest tube drainage - serous. No complaints today. Objective: Vital Signs Date Time Temp Pulse Resp B/P (MAP) Pulse Ox O2 Delivery O2 Flow Rate FiO2 07/03/17 07:20 97 21 07/03/17 07:00 97.7 90 24 159/86 (110) 95 07/03/17 04:00 97 Room Air 07/03/17 04:00 98.0 88 18 148/73 (98) 97 07/03/17 04:00 88 07/03/17 00:30 99 Room Air 07/03/17 00:00 98.2 59 20 130/73 (92) 99 07/03/17 00:00 99 Nasal Cannula 1.00 07/03/17 00:00 60 07/02/17 20:24 99 Nasal Cannula 2.00 07/02/17 20:00 70 07/02/17 20:00 99 Nasal Cannula 2.00 07/02/17 20:00 97.6 69 20 128/71 (90) 99 07/02/17 15:00 81 07/02/17 15:00 99 Nasal Cannula 2.00 07/02/17 15:00 97.8 81 16 139/74 (95) 99 Arterial Line 07/02/17 11:00 100 Nasal Cannula 2.00 07/02/17 11:00 98.0 83 17 142/92 (109) 100 07/02/17 11:00 83 07/02/17 10:22 100 Nasal Cannula 2.00 Labs: Laboratory Tests Test 07/03/17 03:25 White Blood Count 18.6 TH/MM3 (4.0-11.0) Red Blood Count 3.05 MIL/MM3 (4.50-5.90) Hemoglobin 9.5 GM/DL (13.0-17.0) Hematocrit 28.2 % (39.0-51.0) Mean Corpuscular Volume 92.2 FL (80.0-100.0) Mean Corpuscular Hemoglobin 31.1 PG (27.0-34.0) Mean Corpuscular Hemoglobin Concent 33.8 % (32.0-36.0) Red Cell Distribution Width 15.6 % (11.6-17.2) Platelet Count 166 TH/MM3 (150-450) Mean Platelet Volume 8.2 FL (7.0-11.0) Neutrophils (%) (Auto) 82.7 % (16.0-70.0) Lymphocytes (%) (Auto) 8.4 % (9.0-44.0) Monocytes (%) (Auto) 8.1 % (0.0-8.0) Eosinophils (%) (Auto) 0.1 % (0.0-4.0) Basophils (%) (Auto) 0.7 % (0.0-2.0) Neutrophils # (Auto) 15.4 TH/MM3 (1.8-7.7) Lymphocytes # (Auto) 1.6 TH/MM3 (1.0-4.8) Monocytes # (Auto) 1.5 TH/MM3 (0-0.9) Eosinophils # (Auto) 0.0 TH/MM3 (0-0.4) Basophils # (Auto) 0.1 TH/MM3 (0-0.2) CBC Comment DIFF FINAL Differential Comment Blood Urea Nitrogen 40 MG/DL (7-18) Creatinine 1.68 MG/DL (0.60-1.30) Random Glucose 84 MG/DL (74-106) Calcium Level 8.0 MG/DL (8.5-10.1) Magnesium Level 2.6 MG/DL (1.5-2.5) Sodium Level 135 MEQ/L (136-145) Potassium Level 4.4 MEQ/L (3.5-5.1) Chloride Level 102 MEQ/L (98-107) Carbon Dioxide Level 26.1 MEQ/L (21.0-32.0) Anion Gap 7 MEQ/L (5-15) Estimat Glomerular Filtration Rate 41 ML/MIN (>89) Result Diagram: 07/03/17 0325 07/03/17 0325 Cardiovascular: IRR Telemetry: AFIB Pulmonary: CTA GI/: NABS Incision: dry and intact CT: ~1 liter in 24 hrs Plan: Continue chest tubes Start Coreg MgSO4 IV for rhythm PT/OT Encourage PO intake (1) Non-ST elevation [place] (NSTEMI) Plan: ASA, statin , BB for surgery on tuesday (2) CAD (coronary artery disease) (3) Cardiomyopathy Plan: Dig level 0.6 (4) Chronic atrial fibrillation Plan: resume Coumadin post surgery (5) Abdominal aneurysm (6) Status post below knee amputation of left lower extremity (7) CKD (chronic kidney disease) stage 3, GFR 30-59 ml/min Plan: creatinine 1.59 > 1.66 (8) CHF (congestive heart failure) (9) DM (diabetes mellitus) Plan: Diabetic diet , insulin SS (10) Chronic hepatitis C without mention of hepatic coma (11) Ulcer of right heel Plan: wound care following Problem Qualifiers (1) CAD (coronary artery disease): Qualified Codes: I25.119 - Atherosclerotic heart disease of [place] coronary artery with unspecified angina pectoris Kalyani Atkins MD Jul 03, 2017 09:20
[2017-07-03] MEDS: MAGNESIUM SULFATE 1 GM PREMIX 100 ML IV SCH ×2 (09:50→12:11)
[2017-07-03] MEDS: DOCUSATE SODIUM 100 MG CAP PO SCH ×2 (09:50→20:28)
[2017-07-03] MEDS: DIGOXIN 0.125 MG TAB PO SCH (09:50)
[2017-07-03] MEDS: SODIUM CHLORIDE 0.9% FLUSH 10 ML FLUSH IV FLUSH SCH ×2 (09:50→20:28)
[2017-07-03] MEDS: POLYETHYLENE GLYCOL 17 GM PKG PO SCH (09:50)
[2017-07-03] MEDS: MULTIVITAMINS/MINERALS THERAPEUTIC TAB PO SCH (09:51)
[2017-07-03] MEDS: ASPIRIN 81 MG CHEW TAB PO SCH (09:51)
[2017-07-03] MEDS: LACTIC ACID (AMMONIUM LACTATE) 12% LOTION 225 GM BTL TOPICAL SCH ×2 (12:10→20:04)
[2017-07-03] MEDS: COLLAGENASE OINT 30 GM TUBE TOPICAL SCH (12:10)
[2017-07-03] MEDS: BETAMETHASONE DIPROPIONATE 0.05% CREAM 15 GM TOPICAL SCH ×2 (12:10→20:04)
[2017-07-03] MEDS: CARVEDILOL 3.125 MG TAB PO SCH ×2 (12:10→20:28)
--- NOTE | 2017-07-03 16:54 | HHI.PR ---
Subjective Remarks Follow-up for His Patient stated that he is uncomfortable on the chair. Focal short of breath. Denies any chest pain or palpitation. Otherwise no other complaints. Objective Vitals Vital Signs Date Time Temp Pulse Resp B/P (MAP) Pulse Ox O2 Delivery O2 Flow Rate FiO2 07/03/17 16:00 94 07/03/17 15:00 95 Room Air 07/03/17 15:00 98.8 83 20 127/60 (82) 95 07/03/17 15:00 86 07/03/17 14:00 86 07/03/17 13:00 87 07/03/17 12:00 106 07/03/17 11:00 96 Room Air 07/03/17 11:00 98.2 103 22 157/94 (115) 96 07/03/17 11:00 103 07/03/17 11:00 98.2 106 20 97/50 (66) 96 07/03/17 07:20 97 21 07/03/17 07:00 97.7 90 24 159/86 (110) 95 07/03/17 07:00 88 07/03/17 07:00 95 Room Air 07/03/17 04:00 97 Room Air 07/03/17 04:00 98.0 88 18 148/73 (98) 97 07/03/17 04:00 88 07/03/17 00:30 99 Room Air 07/03/17 00:00 98.2 59 20 130/73 (92) 99 07/03/17 00:00 99 Nasal Cannula 1.00 07/03/17 00:00 60 07/02/17 20:24 99 Nasal Cannula 2.00 07/02/17 20:00 70 07/02/17 20:00 99 Nasal Cannula 2.00 07/02/17 20:00 97.6 69 20 128/71 (90) 99 I/O 07/02/17 07/02/17 07/02/17 07/03/17 07/03/17 07/03/17 07:00 15:00 23:00 07:00 15:00 23:00 Intake Total 1608.9 ml 59 ml 2170 ml 1540 ml 100 ml Output Total 1360 ml 1270 ml 1070 ml Balance 248.9 ml 59 ml 900 ml 470 ml 100 ml Intake Oral 960 ml 1920 ml 1290 ml IV Total 648.9 ml 59 ml 250 ml 250 ml 100 ml Output Urine Total 720 ml 750 ml 500 ml Chest Tube Drainage Total 640 ml 520 ml 570 ml # Bowel Movements 0 0 Result Diagram: 07/03/1732407/03/17324 Objective Remarks GENERAL: in NAD SKIN: thigh area with some excoriation from itching + macular rash. CARDIOVASCULAR: Regular rate and rhythm without murmurs, gallops, or rubs. Wound VAC on chest in place. Chest tube in place RESPIRATORY: Breath sounds equal bilaterally. No accessory muscle use. GASTROINTESTINAL: Abdomen soft, non-tender, nondistended. MUSCULOSKELETAL:left BKA with right foot amputation Medications and IVs Current Medications Sodium Chloride (NS Flush) 2 ml UNSCH PRN IVF FLUSH AFTER USING IV ACCESS; Start 06/23/17 at 09:00; Stop 06/23/17 at 12:05; Status DC Metoprolol Tartrate (Lopressor Inj) 5 mg Q5M PRN IV PUSH SBP>180, DBP>95 Last administered on 06/28/17at 07:27; Start 06/23/17 at 09:30; Stop 07/01/17 at 19:26 ; Status DC Aspirin (Aspirin) 325 mg ONCE ONCE PO ; Start 06/23/17 at 09:45; Stop 06/23/17 at 09:46; Status DC Heparin Sodium (Porcine) (Heparin Inj) 5,400 units ONCE ONCE IV PUSH ; Start at 09:45; Stop 06/23/17 at 09:46; Status DC Heparin Sodium (Porcine) (Heparin Inj) 5,000 units UNSCH PRN IV PUSH APTT LESS THAN 25; Start 06/23/17 at 15:45; Stop 06/27/17 at 08:00; Status DC Heparin Sodium (Porcine) (Heparin Inj) 2,500 units UNSCH PRN IV PUSH APTT 25 TO 39; Start 06/23/17 at 15:45; Stop 06/27/17 at 08:00; Status DC Heparin Sodium/ Dextrose 250 ml @ 10 mls/hr TITRATE PRN IV Coagulation Management Last administered on 06/26/17at 12:51; Start 06/23/17 at 09:45; Stop 06/27/17 at 08:00; Status DC Sodium Chloride (NS Flush) 2 ml UNSCH PRN IV FLUSH FLUSH AFTER USING IV ACCESS ; Start 06/23/17 at 11:15 Sodium Chloride (NS Flush) 2 ml BID IV FLUSH Last administered on 07/03/17at 09: 50; Start 06/23/17 at 21:00 Acetaminophen (Tylenol) 650 mg Q4H PRN PO TEMP > 100.4; Start 06/23/17 at 11:15 ; Stop 07/01/17 at 19:24; Status DC Ondansetron HCl (Zofran Inj) 4 mg Q6H PRN IVP NAUSEA OR VOMITING; Start at 11:15; Stop 07/01/17 at 19:18; Status DC Acetaminophen (Tylenol) 650 mg Q6H PRN PO PAIN SCALE 1 TO 2; Start 06/23/17 at 11:15 Naloxone HCl (Narcan Inj) 0.4 mg UNSCH PRN IV PUSH SEE LABEL COMMENTS; Start at 11:15 Magnesium Hydroxide (Milk Of Magngypsy Liq) 30 ml Q12H PRN PO Mild constipation Last administered on 06/30/17at 13:48; Start 06/23/17 at 11:15; Stop 07/02/17 at 10:50; Status DC Albuterol/ Ipratropium (Duoneb Neb) 1 ampule Q2HR NEB PRN NEB SOB/WHEEZING Last administered on 06/30/17at 06:15; Start 06/23/17 at 11:15; Stop 07/01/17 at 19:00; Status DC Dextrose (D50w (Vial) Inj) 50 ml UNSCH PRN IV PUSH HYPOGLYCEMIA-SEE COMMENTS; Start 06/23/17 at 11:15; Stop 07/01/17 at 19:18; Status DC Glucagon (Glucagon Inj) 1 mg UNSCH PRN OTHER HYPOGLYCEMIA-SEE COMMENTS; Start 06/23/17 at 11:15; Stop 07/01/17 at 19:18; Status DC Insulin Aspart (NovoLOG SUPPLEMENTAL SCALE) 1 ACHS SLIDING SCALE SQ Last administered on 06/30/17at 21:54; Start 06/23/17 at 12:00; Stop 07/01/17 at 19:18 ; Status DC Aspirin (Aspirin Chew) 162 mg DAILY PO Last administered on 06/30/17at 10:03; Start 06/24/17 at 09:00; Stop 07/01/17 at 19:34; Status DC Nitroglycerin (Nitroglycerin 2% Oint) 1 inch Q6HR TOP Last administered on 07/01at 05:38; Start 06/23/17 at 12:00; Stop 07/01/17 at 18:54; Status DC Hydralazine HCl (Apresoline Inj) 20 mg Q4H PRN IV PUSH SBP>160, DBP>90; Start 06/23/17 at 11:15; Stop 07/02/17 at 10:16; Status DC Phytonadione (Mephyton Liq) 5 mg ONCE ONCE PO Last administered on 06/23/17at 17:43; Start 06/23/17 at 14:15; Stop 06/23/17 at 15:00; Status DC Atorvastatin Calcium (Lipitor) 80 mg HS PO Last administered on 07/02/17at 21:51 ; Start 06/23/17 at 21:00 Digoxin (Lanoxin) 0.125 mg DAILY PO Last administered on 07/03/17at 09:50; Start 06/24/17 at 09:00 Furosemide (Lasix) 40 mg DAILY PO Last administered on 06/30/17at 10:03; Start 06/24/17 at 09:00; Stop 07/01/17 at 18:54; Status DC Insulin Detemir (Levemir Inj) 32 units Q12HR SQ Last administered on 06/26/17at 21:49; Start 06/23/17 at 21:00; Stop 07/01/17 at 18:54; Status DC Isosorbide Mononitrate (Imdur) 30 mg DAILY@0700 PO Last administered on at 05:36; Start 06/24/17 at 07:00; Stop 07/01/17 at 18:54; Status DC Metoprolol Succinate (Toprol Xl) 25 mg DAILY PO Last administered on 07/01/17at 09:24; Start 06/24/17 at 09:00; Stop 07/01/17 at 18:54; Status DC Morphine Sulfate (Msir) 15 mg 5 TIMES A DAY PO Last administered on 07/01/17at 09:23; Start 06/23/17 at 18:00; Stop 07/01/17 at 18:54; Status DC Sodium Chloride 1,000 ml @ 84 mls/hr [id number] IV Last administered on at 11:50; Start 06/27/17 at 12:00; Stop 06/28/17 at 14:30; Status DC Lactic Acid (Lac-Hydrin 12% Lotion) 1 applic BID TOPICAL Last administered on at 12:10; Start 06/27/17 at 21:00 Heparin Sodium (Porcine) (Heparin Inj) 10,000 units STK-MED ONCE .ROUTE ; Start 06/27/17 at 16:58; Stop 06/27/17 at 16:59; Status DC Midazolam HCl (Versed Inj) 4 mg STK-MED ONCE .ROUTE Last administered on at 17:13; Start 06/27/17 at 17:03; Stop 06/27/17 at 17:04; Status DC Fentanyl Citrate (fentaNYL INJ) 100 mcg STK-MED ONCE .ROUTE Last administered on 06/27/17at 17:14; Start 06/27/17 at 17:03; Stop 06/27/17 at 17:04; Status DC Nitroglycerin 5 ml @ As Directed STK-MED ONCE .ROUTE Last administered on at 17:04; Start 06/27/17 at 17:04; Stop 06/27/17 at 17:05; Status DC Heparin Sodium/ Sodium Chloride 1,000 ml @ As Directed STK-MED ONCE .ROUTE Last administered on 06/27/17at 17:04; Start 06/27/17 at 17:04; Stop 06/27/17 at 17:05; Status DC Sodium Chloride 500 ml @ 100 mls/hr Q5H IV ; Start 06/27/17 at 18:13; Stop at 22:12; Status DC Heparin Sodium/ Dextrose 250 ml @ 10 mls/hr TITRATE PRN IV Coagulation Management; Start 06/27/17 at 23:00; Stop 07/03/17 at 09:17; Status DC Iohexol (OMNIPAQUE 350 INJ (On Car Supervisor)) 100 ml STK-MED ONCE OTHER ; Start at 08:58; Stop 06/28/17 at 08:58; Status DC Iohexol (OMNIPAQUE 350 INJ (On Car Supervisor)) 50 ml STK-MED ONCE OTHER ; Start at 09:07; Stop 06/28/17 at 09:07; Status DC Sodium Chloride (NS Flush) 2 ml BID IV FLUSH ; Start 06/28/17 at 21:00; Stop at 21:00; Status DC Sodium Chloride (NS Flush) 2 ml UNSCH PRN IV FLUSH FLUSH AFTER USING IV ACCESS ; Start 06/28/17 at 13:00; Stop 06/28/17 at 13:56; Status DC Papaverine HCl 60 mg/Nitroglycerin 100 mcg/Diltiazem HCl 100 mg/Sodium Chloride 100 ml @ 0 mls/hr ULTRASOUND TESTER IRRIGATION Last administered on 07/01/17at 14:58; Start 06/28/17 at 13:00; Stop 07/05/17 at 12:59 Cefazolin Sodium 500 mg/Sodium Chloride 505 ml @ 0 mls/hr ULTRASOUND TESTER IRRIGATION Last administered on 07/01/17at 18:27; Start 06/28/17 at 13:00; Stop 07/05/17 at 12:59 Cefazolin Sodium/ Dextrose 50 ml @ 150 mls/hr ULTRASOUND TESTER IV ; Start 06/28/17 at 13:00; Stop 07/05/17 at 12:59 Metoprolol Tartrate (Lopressor) 12.5 mg ULTRASOUND TESTER PO ; Start 06/28/17 at 13:00; Stop 07/05/17 at 12:59 Chlorhexidine Gluconate (Hibiclens 4% Top Soln) 1 applic ULTRASOUND TESTER TOPICAL ; Start 06/28/17 at 13:00; Stop 07/05/17 at 12:59 Insulin Human Regular 100 units/ Sodium Chloride 100 ml @ 3 mls/hr TITRATE PRN IV for blood glucose control; Start 06/28/17 at 13:00; Stop 07/01/17 at 19:01; Status DC Dextrose (D50w (Vial) Inj) 50 ml UNSCH PRN IV PUSH HYPOGLYCEMIA-SEE COMMENTS; Start 06/28/17 at 13:00; Stop 07/01/17 at 19:17; Status DC Collagenase (Santyl Oint) 1 applic DAILY TOPICAL Last administered on at 12:10; Start 06/29/17 at 09:00 Betamethasone Dipropionate (Diprosone 0.05% Cream) 1 applic BID TOPICAL Last administered on 07/03/17at 12:10; Start 06/30/17 at 16:15 Midazolam HCl (Versed Inj) 2 mg NOW ONCE IV ; Start 06/30/17 at 19:45; Stop at 19:46; Status Cancel Fentanyl Citrate (fentaNYL INJ) 50 mcg NOW ONCE IV ; Start 06/30/17 at 19:45; Stop 06/30/17 at 19:46; Status DC Midazolam HCl (Versed Inj) 1 mg NOW ONCE IV ; Start 06/30/17 at 19:45; Stop at 19:46; Status DC Fentanyl Citrate (fentaNYL INJ) 25 mcg NOW ONCE IV ; Start 06/30/17 at 20:00; Stop 06/30/17 at 20:00; Status DC Sodium Biphosphate/ Sodium Phosphate (Fleets Enema (Adult)) 133 ml NOW ONCE RECTAL ; Start 06/30/17 at 20:00; Stop 06/30/17 at 20:01; Status DC Methylprednisolone Sodium Succinate (SoluMEDROL INJ) 125 mg STK-MED ONCE .ROUTE Last administered on 07/01/17at 14:10; Start 07/01/17 at 12:40; Stop 07/01/17 at 12:41; Status DC Heparin Sodium (Porcine) (Heparin Inj) 40,000 units STK-MED ONCE .ROUTE Last administered on 07/01/17at 13:00; Start 07/01/17 at 12:40; Stop 07/01/17 at 12:41 ; Status DC Vancomycin HCl (Vancomycin Inj) 3,000 mg STK-MED ONCE .ROUTE Last administered on 07/01/17at 14:00; Start 07/01/17 at 12:40; Stop 07/01/17 at 12:41; Status DC Cefazolin Sodium/ Dextrose 50 ml @ As Directed STK-MED ONCE .ROUTE Last administered on 07/01/17at 14:03; Start 07/01/17 at 12:40; Stop 07/01/17 at 12:41 ; Status DC Multi-Ingred Electrol/Mineral Irrig 2,000 ml @ As Directed STK-MED ONCE .ROUTE ; Start 07/01/17 at 13:14; Stop 07/01/17 at 13:15; Status DC Potassium Chloride (KCl Inj) 2 meq STK-MED ONCE .ROUTE ; Start 07/01/17 at 13:15 ; Stop 07/01/17 at 13:16; Status DC Potassium Chloride (KCl Inj) 4 meq STK-MED ONCE .ROUTE ; Start 07/01/17 at 13:15 ; Stop 07/01/17 at 13:16; Status DC Albumin Human 50 ml @ As Directed STK-MED ONCE IV ; Start 07/01/17 at 13:16; Stop 07/01/17 at 13:17; Status DC Mannitol 100 ml @ As Directed STK-MED ONCE .ROUTE ; Start 07/01/17 at 13:16; Stop 07/01/17 at 13:17; Status DC Sodium Bicarbonate 100 ml @ As Directed STK-MED ONCE .ROUTE ; Start 07/01/17 at 13:17; Stop 07/01/17 at 13:18; Status DC Heparin Sodium (Porcine) (Heparin Inj) 30,000 units STK-MED ONCE .ROUTE ; Start 07/01/17 at 13:17; Stop 07/01/17 at 13:18; Status DC Sodium Chloride (NS Flush) 2 ml BID IV FLUSH ; Start 07/01/17 at 21:00; Status UNV Sodium Chloride (NS Flush) 2 ml UNSCH PRN IV FLUSH FLUSH AFTER USING IV ACCESS ; Start 07/01/17 at 18:45; Status UNV Clevidipine 50 ml @ 2 mls/hr TITRATE PRN IV Maintain BP < 140/90 mmHg; Start at 20:30; Stop 07/03/17 at 09:17; Status DC Albumin Human 250 ml @ 250 mls/hr UNSCH PRN IV SEE LABEL COMMENTS Last administered on 07/01/17at 20:44; Start 07/01/17 at 18:45 Lactated Ringer's 500 ml @ 500 mls/hr Q1H PRN IV SEE LABEL COMMENTS; Start at 18:35; Stop 07/03/17 at 09:17; Status DC Miscellaneous Information (Post-op Orders (for Pharmacy)) STAT ONCE OTHER ; Start 07/01/17 at 18:45; Stop 07/01/17 at 19:12; Status DC Vancomycin HCl 1000 mg/Sodium Chloride 250 ml @ 250 mls/hr Q12H IV Last administered on 07/03/17at 00:33; Start 07/02/17 at 02:00; Stop 07/03/17 at 02:59 ; Status DC Aspirin (Aspirin Chew) 81 mg DAILY PO Last administered on 07/03/17at 09:51; Start 07/02/17 at 09:00 Pantoprazole Sodium (Protonix) 40 mg DAILY@06 PO Last administered on at 06:49; Start 07/02/17 at 06:00 Metoclopramide HCl (Reglan Inj) 10 mg ACHS IV PUSH ; Start 07/01/17 at 21:00; Stop 07/02/17 at 10:38; Status DC Acetaminophen (Tylenol) 650 mg Q4H PRN PO TEMPERATURE > 101 F; Start 07/01/17 at 18:45 Acetaminophen (Tylenol Supp) 650 mg Q4H PRN RECTAL TEMPERATURE > 101 F; Start 07/01/17 at 18:45 Acetaminophen 100 ml @ 400 mls/hr Q6H IV Last administered on 07/02/17at 02:00 ; Start 07/01/17 at 20:00; Stop 07/02/17 at 14:14; Status DC Oxycodone/ Acetaminophen (Percocet 5-325 Mg) 2 tab Q3H PRN PO PAIN SCALE 6 TO 10 Last administered on 07/02/17at 09:14; Start 07/01/17 at 18:45; Stop 07/02/17 at 10:50; Status DC Fentanyl Citrate (fentaNYL INJ) 50 mcg Q1H PRN IV PUSH BREAKTHROUGH PAIN Last administered on 07/02/17at 06:42; Start 07/01/17 at 18:45 Ondansetron HCl (Zofran Inj) 4 mg Q6H PRN IV PUSH NAUSEA OR VOMITING; Start at 18:45 Hydralazine HCl (Apresoline Inj) 10 mg Q4H PRN IV PUSH SEE LABEL COMMENTS; Start 07/01/17 at 18:45 Metoprolol Tartrate (Lopressor Inj) 2.5 mg Q1H PRN IV PUSH SEE LABEL COMMENTS; Start 07/01/17 at 18:45 Potassium Chloride 100 ml @ 50 mls/hr UNSCH PRN IV SEE LABEL COMMENTS; Start 07/01/17 at 18:45 Potassium Chloride 100 ml @ 50 mls/hr UNSCH PRN IV SEE LABEL COMMENTS; Start 07/01/17 at 18:45 Potassium Chloride 100 ml @ 50 mls/hr UNSCH PRN IV SEE LABEL COMMENTS; Start 07/01/17 at 18:45 Potassium Chloride (KCl) 20 meq UNSCH PRN PO SEE LABEL COMMENTS; Start at 18:45 Potassium Chloride (KCl) 40 meq UNSCH PRN PO SEE LABEL COMMENTS; Start at 18:45 Magnesium Sulfate 2 gm/Sodium Chloride 104 ml @ 100 mls/hr UNSCH PRN IV SEE LABEL COMMENTS; Start 07/01/17 at 18:45 Magnesium Sulfate 2 gm/Sodium Chloride 104 ml @ 50 mls/hr UNSCH PRN IV SEE LABEL COMMENTS; Start 07/01/17 at 18:45 Calcium Chloride 1 gm/Sodium Chloride 110 ml @ 100 mls/hr UNSCH PRN IV SEE LABEL COMMENTS Last administered on 07/01/17at 22:20; Start 07/01/17 at 18:45; Stop 07/01/17 at 22:21; Status DC Calcium Chloride (Calcium Chloride Inj) 0.5 gm UNSCH PRN IV PUSH SEE LABEL COMMENTS; Start 07/01/17 at 18:45 Insulin Human Regular 100 units/ Sodium Chloride 100 ml @ 3 mls/hr TITRATE PRN IV for blood glucose control Last administered on 07/01/17at 19:15; Start at 20:00; Stop 07/02/17 at 14:00; Status DC Dextrose (D50w (Vial) Inj) 50 ml UNSCH PRN IV PUSH HYPOGLYCEMIA-SEE COMMENTS; Start 07/01/17 at 18:45; Stop 07/02/17 at 14:00; Status DC Sodium Bicarbonate (Sodium Bicarbonate 8.4% Inj) 50 meq UNSCH PRN IV PUSH SEE LABEL COMMENTS; Start 07/01/17 at 18:45 Sodium Bicarbonate (Sodium Bicarbonate 8.4% Inj) 100 meq UNSCH PRN IV PUSH SEE LABEL COMMENTS; Start 07/01/17 at 18:45 Albuterol/ Ipratropium (Duoneb Neb) 1 ampule Q6HR NEB NEB Last administered on 07/02/17at 10:21; Start 07/01/17 at 22:00; Stop 07/02/17 at 10:23; Status DC Albuterol/ Ipratropium (Duoneb Neb) 1 ampule Q2HR NEB PRN NEB WHEEZING Last administered on 07/02/17at 00:47; Start 07/01/17 at 18:45 Racepinephrine (Racepinephrine 2.25% Neb) 0.5 ml UNSCH X1 PRN NEB STRIDOR; Start 07/01/17 at 18:45; Stop 07/01/17 at 23:59; Status DC Fentanyl Citrate (fentaNYL INJ) 1,000 mcg STK-MED ONCE .ROUTE ; Start 07/01/17 at 19:32; Stop 07/01/17 at 19:33; Status DC Midazolam HCl (Versed Inj) 10 mg STK-MED ONCE .ROUTE ; Start 07/01/17 at 19:33; Stop 07/01/17 at 19:34; Status DC Fentanyl Citrate (fentaNYL INJ) 1,000 mcg STK-MED ONCE .ROUTE ; Start 07/01/17 at 19:34; Stop 07/01/17 at 19:35; Status DC Epinephrine HCl 2 mg/Dextrose 250 ml @ 15 mls/hr TITRATE PRN IV Blood Pressure Management Last administered on 07/01/17at 19:15; Start 07/01/17 at 20: 30; Stop 07/03/17 at 09:17; Status DC Albuterol/ Ipratropium (Duoneb Neb) 1 ampule Q6HR WHILE AWAKE NEB NEB Last administered on 07/03/17at 13:15; Start 07/02/17 at 14:00; Stop 07/04/17 at 13:59 Metoclopramide HCl (Reglan Inj) 10 mg Q6HR IV PUSH Last administered on at 12:27; Start 07/02/17 at 12:00 Docusate Sodium (Colace) 100 mg BID PO Last administered on 07/03/17at 09:50; Start 07/02/17 at 21:00 Multivitamins/ Minerals Therapeutic (Theragran M Tab) 1 tab DAILY PO Last administered on 07/03/17at 09:51; Start 07/03/17 at 09:00 Magnesium Hydroxide (Milk Of Magnesia Liq) 30 ml DAILY PO ; Start 07/02/17 at 11 :00 Bisacodyl (Dulcolax Supp) 10 mg UNSCH PRN RECTAL SEE LABEL COMMENTS; Start at 09:45 Polyethylene Glycol (Miralax) 17 gm DAILY PO Last administered on 07/03/17at 09: 50; Start 07/03/17 at 09:00 Sennosides (Senokot) 8.6 mg HS PO Last administered on 07/02/17at 21:00; Start 07/02/17 at 21:00 Sodium Biphosphate/ Sodium Phosphate (Fleets Enema (Adult)) 118 ml UNSCH PRN RECTAL SEE LABEL COMMENTS; Start 07/02/17 at 09:45 Insulin Detemir (Levemir Inj) 20 units ONCE ONCE SQ Last administered on at 10:30; Start 07/02/17 at 10:30; Stop 07/02/17 at 10:31; Status DC Insulin Aspart (NovoLOG SUPPLEMENTAL SCALE) 1 02,06,10,14,18,22 SQ Last administered on 07/03/17at 14:12; Start 07/02/17 at 14:00 Dextrose (D50w (Vial) Inj) 50 ml UNSCH PRN IV PUSH HYPOGLYCEMIA-SEE COMMENTS; Start 07/02/17 at 09:45 Glucagon (Glucagon Inj) 1 mg UNSCH PRN OTHER HYPOGLYCEMIA-SEE COMMENTS; Start 07/02/17 at 09:45 Hydralazine HCl (Apresoline Inj) 10 mg Q30M PRN IV PUSH SBP>160, DBP>90; Start 07/02/17 at 09:45 Morphine Sulfate (Msir) 15 mg Q6H PRN PO PAIN GREATER THAN 5 Last administered on 07/03/17at 14:12; Start 07/02/17 at 11:00 Carvedilol (Coreg) 3.125 mg Q12HR PO Last administered on 07/03/17at 12:10; Start 07/03/17 at 09:15 Magnesium Sulfate/ Dextrose 100 ml @ 100 mls/hr Q1H IV Last administered on at 12:11; Start 07/03/17 at 09:15; Stop 07/03/17 at 11:14; Status DC A/P Problem List: (1) Non-ST elevation CT (NSTEMI) ICD Code: I21.4 - Non-ST elevation (NSTEMI) myocardial infarction Status: Acute Assessment and Plan 66 years old man with 1. NSTEMI/Severe CAD He had a heart catheterization done on 06/28 showing severe CAD with severe 95 % prox stenosis of a large LAD. s/p CABG on 07/[address] Dumont . 2. CHF: Chronic. Systolic. Echo 09/07/13 w/ EF 30-35%, s/p AICD No evidence of fluid overload. BNP mildly elevated @230, CXR w/ no acute findings Continue current regimen. 3. Supra Therapeutic INR, resolved. Treat with Vit K 5mg PO x 1 INR now 1.7. Restart once okay with cardiovascular surgeon. 4. Leukocytosis: WBC 13.3, CXR w/ no acute findings. UA negative. Clinically patient does not look like he has any infectious process. This may be due to his NSTEMI. resolved. 5. A-fib: Chronic. Continue home Digoxin/Metoprolol. INR supra therapeutic, Hold Coumadin. restart coumadin per [facility]. 6. 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 7. DM: Sliding scale w/ Accu-Cheks, resume home Insulin 8. Tobacco Abuse: Ativan prn, no NicoDerm to avoid vasoconstriction. 9: Pruritic rash improved on betamethasone cream. 10. DVT Prophylaxis: Heparin Discharge Planning Once medically clear patient may need to go to [facility] due to the complexity of his medical management and multiple comorbidities. Michelle Osorio MD Jul 03, 2017 16:54
--- NOTE | 2017-07-03 17:04 | PD.CARD.PN ---
Subjective Subjective Remarks No CP, mild SOB, constipated Objective Medications Current Medications Medications (Trade) Dose Ordered Sig/Kelly Route Start Time Stop Time Status Last Admin (NS Flush) 2 ml UNSCH PRN IV FLUSH 06/23/17 11:15 (NS Flush) 2 ml BID IV FLUSH 06/23/17 21:00 07/03/17 09:50 (Tylenol) 650 mg Q6H PRN PO 06/23/17 11:15 (Narcan Inj) 0.4 mg UNSCH PRN IV PUSH 06/23/17 11:15 (Lipitor) 80 mg HS PO 06/23/17 21:00 07/02/17 21:51 (Lanoxin) 0.125 mg DAILY PO 06/24/17 09:00 07/03/17 09:50 (Lac-Hydrin 12% Lotion) 1 applic BID TOPICAL 06/27/17 21:00 07/03/17 12:10 Papaverine HCl 60 mg/Nitroglycerin 100 mcg/Diltiazem HCl 100 mg/Sodium Chloride 100 ml @ 0 mls/hr [employer] IRRIGATION 06/28/17 13:00 07/05/17 12:59 07/01/17 14:58 Cefazolin Sodium 500 mg/Sodium Chloride 505 ml @ 0 mls/hr [employer] IRRIGATION 06/28/17 13:00 07/05/17 12:59 07/01/17 18:27 Cefazolin Sodium/ Dextrose 50 ml @ 150 mls/hr [employer] IV 06/28/17 13:00 07/05/17 12:59 (Lopressor) 12.5 mg [employer] PO 06/28/17 13:00 07/05/17 12:59 (Hibiclens 4% Top Soln) 1 applic [employer] TOPICAL 06/28/17 13:00 07/05/17 12:59 (Santyl Oint) 1 applic DAILY TOPICAL 06/29/17 09:00 07/03/17 12:10 (Diprosone 0.05% Cream) 1 applic BID TOPICAL 06/30/17 16:15 07/03/17 12:10 Albumin Human 250 ml @ 250 mls/hr UNSCH PRN IV 07/01/17 18:45 07/01/17 20:44 (Aspirin Chew) 81 mg DAILY PO 07/02/17 09:00 07/03/17 09:51 (Protonix) 40 mg DAILY@06 PO 07/02/17 06:00 07/03/17 06:49 (Tylenol) 650 mg Q4H PRN PO 07/01/17 18:45 (Tylenol Supp) 650 mg Q4H PRN RECTAL 07/01/17 18:45 (fentaNYL INJ) 50 mcg Q1H PRN IV PUSH 07/01/17 18:45 07/02/17 06:42 (Zofran Inj) 4 mg Q6H PRN IV PUSH 07/01/17 18:45 (Apresoline Inj) 10 mg Q4H PRN IV PUSH 07/01/17 18:45 (Lopressor Inj) 2.5 mg Q1H PRN IV PUSH 07/01/17 18:45 Potassium Chloride 100 ml @ 50 mls/hr UNSCH PRN IV 07/01/17 18:45 Potassium Chloride 100 ml @ 50 mls/hr UNSCH PRN IV 07/01/17 18:45 Potassium Chloride 100 ml @ 50 mls/hr UNSCH PRN IV 07/01/17 18:45 (KCl) 20 meq UNSCH PRN PO 07/01/17 18:45 (KCl) 40 meq UNSCH PRN PO 07/01/17 18:45 Magnesium Sulfate 2 gm/Sodium Chloride 104 ml @ 100 mls/hr UNSCH PRN IV 07/01/17 18:45 Magnesium Sulfate 2 gm/Sodium Chloride 104 ml @ 50 mls/hr UNSCH PRN IV 07/01/17 18:45 (Calcium Chloride Inj) 0.5 gm UNSCH PRN IV PUSH 07/01/17 18:45 (Sodium Bicarbonate 8.4% Inj) 50 meq UNSCH PRN IV PUSH 07/01/17 18:45 (Sodium Bicarbonate 8.4% Inj) 100 meq UNSCH PRN IV PUSH 07/01/17 18:45 (Duoneb Neb) 1 ampule Q2HR NEB PRN NEB 07/01/17 18:45 07/02/17 00:47 (Duoneb Neb) 1 ampule Q6HR WHILE AWAKE NEB NEB 07/02/17 14:00 07/04/17 13:59 07/03/17 13:15 (Reglan Inj) 10 mg Q6HR IV PUSH 07/02/17 12:00 07/03/17 16:56 (Colace) 100 mg BID PO 07/02/17 21:00 07/03/17 09:50 (Theragran M Tab) 1 tab DAILY PO 07/03/17 09:00 07/03/17 09:51 (Milk Of Magnesia Liq) 30 ml DAILY PO 07/02/17 11:00 (Dulcolax Supp) 10 mg UNSCH PRN RECTAL 07/02/17 09:45 (Miralax) 17 gm DAILY PO 07/03/17 09:00 07/03/17 09:50 (Senokot) 8.6 mg HS PO 07/02/17 21:00 07/02/17 21:00 (Fleets Enema (Adult)) 118 ml UNSCH PRN RECTAL 07/02/17 09:45 (NovoLOG SUPPLEMENTAL SCALE) 1 02,06,10,14,18,22 SQ 07/02/17 14:00 07/03/17 16:56 (D50w (Vial) Inj) 50 ml UNSCH PRN IV PUSH 07/02/17 09:45 (Glucagon Inj) 1 mg UNSCH PRN OTHER 07/02/17 09:45 (Apresoline Inj) 10 mg Q30M PRN IV PUSH 07/02/17 09:45 (Msir) 15 mg Q6H PRN PO 07/02/17 11:00 07/03/17 14:12 (Coreg) 3.125 mg Q12HR PO 07/03/17 09:15 07/03/17 12:10 Vital Signs / I&O Vital Signs Date Time Temp Pulse Resp B/P (MAP) Pulse Ox O2 Delivery O2 Flow Rate FiO2 07/03/17 16:00 94 07/03/17 15:00 95 Room Air 07/03/17 15:00 98.8 83 20 127/60 (82) 95 07/03/17 15:00 86 07/03/17 14:00 86 07/03/17 13:00 87 07/03/17 12:00 106 07/03/17 11:00 96 Room Air 07/03/17 11:00 98.2 103 22 157/94 (115) 96 07/03/17 11:00 103 07/03/17 11:00 98.2 106 20 97/50 (66) 96 07/03/17 07:20 97 21 07/03/17 07:00 97.7 90 24 159/86 (110) 95 07/03/17 07:00 88 07/03/17 07:00 95 Room Air 07/03/17 04:00 97 Room Air 07/03/17 04:00 98.0 88 18 148/73 (98) 97 07/03/17 04:00 88 07/03/17 00:30 99 Room Air 07/03/17 00:00 98.2 59 20 130/73 (92) 99 07/03/17 00:00 99 Nasal Cannula 1.00 07/03/17 00:00 60 07/02/17 20:24 99 Nasal Cannula 2.00 07/02/17 20:00 70 07/02/17 20:00 99 Nasal Cannula 2.00 07/02/17 20:00 97.6 69 20 128/71 (90) 99 I/O 07/02/17 07/02/17 07/02/17 07/03/17 07/03/17 07/03/17 07:00 15:00 23:00 07:00 15:00 23:00 Intake Total 1608.9 ml 59 ml 2170 ml 1540 ml 100 ml Output Total 1360 ml 1270 ml 1070 ml Balance 248.9 ml 59 ml 900 ml 470 ml 100 ml Intake Oral 960 ml 1920 ml 1290 ml IV Total 648.9 ml 59 ml 250 ml 250 ml 100 ml Output Urine Total 720 ml 750 ml 500 ml Chest Tube Drainage Total 640 ml 520 ml 570 ml # Bowel Movements 0 0 Physical Exam GENERAL: In NAD SKIN: Warm and dry. HEAD: Normocephalic. EYES: No scleral icterus. No injection or drainage. NECK: Supple, trachea midline. No JVD or lymphadenopathy. CARDIOVASCULAR: Irregular rate and rhythm, without murmurs, gallops, or rubs. RESPIRATORY: Breath sounds equal bilaterally. No accessory muscle use. GASTROINTESTINAL: Abdomen soft, non-tender, nondistended. MUSCULOSKELETAL: No cyanosis, mild LE edema. S/p bilat LE amputations Laboratory Laboratory Tests Test 07/03/17 03:25 White Blood Count 18.6 TH/MM3 Red Blood Count 3.05 MIL/MM3 Hemoglobin 9.5 GM/DL Hematocrit 28.2 % Mean Corpuscular Volume 92.2 FL Mean Corpuscular Hemoglobin 31.1 PG Mean Corpuscular Hemoglobin Concent 33.8 % Red Cell Distribution Width 15.6 % Platelet Count 166 TH/MM3 Mean Platelet Volume 8.2 FL Neutrophils (%) (Auto) 82.7 % Lymphocytes (%) (Auto) 8.4 % Monocytes (%) (Auto) 8.1 % Eosinophils (%) (Auto) 0.1 % Basophils (%) (Auto) 0.7 % Neutrophils # (Auto) 15.4 TH/MM3 Lymphocytes # (Auto) 1.6 TH/MM3 Monocytes # (Auto) 1.5 TH/MM3 Eosinophils # (Auto) 0.0 TH/MM3 Basophils # (Auto) 0.1 TH/MM3 CBC Comment DIFF FINAL Differential Comment Blood Urea Nitrogen 40 MG/DL Creatinine 1.68 MG/DL Random Glucose 84 MG/DL Calcium Level 8.0 MG/DL Magnesium Level 2.6 MG/DL Sodium Level 135 MEQ/L Potassium Level 4.4 MEQ/L Chloride Level 102 MEQ/L Carbon Dioxide Level 26.1 MEQ/L Anion Gap 7 MEQ/L Estimat Glomerular Filtration Rate 41 ML/MIN Assessment and Plan Problem List: (1) Non-ST elevation MT (NSTEMI) ICD Codes: I21.4 - Non-ST elevation (NSTEMI) myocardial infarction Status: Acute (2) CAD (coronary artery disease) ICD Codes: I25.10 - Atherosclerotic heart disease of [place] coronary artery without angina pectoris Status: Chronic (3) Cardiomyopathy ICD Codes: I42.9 - Cardiomyopathy, unspecified (4) Chronic atrial fibrillation ICD Codes: I48.2 - Chronic atrial fibrillation Status: Chronic (5) Abdominal aneurysm ICD Codes: I71.4 - Abdominal aortic aneurysm Status: Acute (6) Status post below knee amputation of left lower extremity ICD Codes: Z89.512 - Acquired absence of left leg below knee Status: Acute (7) CKD (chronic kidney disease) stage 3, GFR 30-59 ml/min ICD Codes: N18.3 - Chronic kidney disease, stage 3 (moderate) Status: Chronic (8) CHF (congestive heart failure) ICD Codes: I50.9 - Heart failure, unspecified Status: Chronic (9) DM (diabetes mellitus) ICD Codes: E11.9 - Type 2 diabetes mellitus without complications Status: Chronic (10) Chronic hepatitis C without mention of hepatic coma ICD Codes: B18.2 - Chronic hepatitis C virus infection Status: Acute (11) Ulcer of right heel ICD Codes: L97.419 - Non-pressure chronic ulcer of right heel and midfoot with unspecified severity Assessment and Plan No new cardiac issues. No angina or CHF. CABG tolerated well. Continue current program. Aggressive risk factor modification. Increase activity. Problem Qualifiers (1) CAD (coronary artery disease): Qualified Codes: I25.119 - Atherosclerotic heart disease of [place] coronary artery with unspecified angina pectoris Nancy Rodriguez MD Jul 03, 2017 17:04
[2017-07-03] MEDS: SENNOSIDES 8.6 MG TAB PO SCH (20:28)
[2017-07-03] MEDS: ATORVASTATIN 80 MG TAB PO SCH (20:28)
[2017-07-03 22:55] LABS: AUTOMATED NEUTROPHIL # 12.1 TH/MM3 (1.8-7.7); BASOPHIL # 0.1 TH/MM3 (0-0.2); BASOPHIL % 0.8 % (0.0-2.0); EOSINOPHIL # 0.1 TH/MM3 (0-0.4); EOSINOPHIL % 0.4 % (0.0-4.0); HEMATOCRIT 27.5 % (39.0-51.0); HEMOGLOBIN 9.4 GM/DL (13.0-17.0); LYMPH % 11.3 % (9.0-44.0); LYMPHOCYTE # 1.7 TH/MM3 (1.0-4.8); MEAN CELL VOLUME 90.9 FL (80.0-100.0); MEAN CORPUSCULAR HGB CONC 34.1 % (32.0-36.0); MEAN PLATELET VOLUME 7.9 FL (7.0-11.0); MONO % 7.6 % (0.0-8.0); MONOCYTE # 1.2 TH/MM3 (0-0.9); NEUT % 79.9 % (16.0-70.0); PLATELET COUNT 172 TH/MM3 (150-450); RED BLOOD COUNT 3.03 MIL/MM3 (4.50-5.90); RED CELL DISTRIBUTION WIDTH 15.8 % (11.6-17.2); WHITE BLOOD COUNT 15.2 TH/MM3 (4.0-11.0)
[2017-07-03] MEDS ORDERED: AMIODARONE 150 MG/D5W 97 ML BOLUS 10 MINUTES IV ONE ×2 (23:00)
[2017-07-03 23:13] LABS: BICARBONATE 27.3 MEQ/L (21.0-32.0); CALCIUM 7.9 MG/DL (8.5-10.1); CREATININE 1.49 MG/DL (0.60-1.30)
[2017-07-03] MEDS: AMIODARONE INJ 450 MG in SODIUM CHLOR 0.9% (EXCEL) INJ 241 ML IV PRN (23:43)
[2017-07-04] VITALS (28 sets, daily range): BP systolic 121–183; BP diastolic 76–89; PULSE 60–104; RESP 16–19; TEMP 97.4–98.7; O2SAT 95–100
[2017-07-04] MEDS: INSULIN ASPART SUPPLEMENTAL SCALE SQ SCH ×5 (02:50→21:00)
[2017-07-04] MEDS: MORPHINE SULFATE 15 MG TAB PO PRN ×4 (02:57→22:34)
[2017-07-04] MEDS: METOCLOPRAMIDE HCL 10 MG/2 ML VIAL IV PUSH SCH (06:00)
[2017-07-04] MEDS: PANTOPRAZOLE SOD 40 MG DELAYED RELEASE TAB PO SCH (06:00)
[2017-07-04] MEDS: RESP: ALBUTEROL 2.5 MG/IPRATROPIUM 0.5 MG NEB (SCH) NEB ×2 (07:28→12:24)
[2017-07-04] MEDS: AMIODARONE INJ 450 MG in SODIUM CHLOR 0.9% (EXCEL) INJ 241 ML IV PRN ×2 (08:00→23:48)
[2017-07-04] MEDS: MULTIVITAMINS/MINERALS THERAPEUTIC TAB PO SCH (09:11)
[2017-07-04] MEDS: POLYETHYLENE GLYCOL 17 GM PKG PO SCH (09:11)
[2017-07-04] MEDS: DIGOXIN 0.125 MG TAB PO SCH (09:11)
[2017-07-04] MEDS: MAGNESIUM HYDROXIDE SUSP 30 ML CUP PO SCH (09:11)
[2017-07-04] MEDS: ASPIRIN 81 MG CHEW TAB PO SCH (09:12)
[2017-07-04] MEDS: DOCUSATE SODIUM 100 MG CAP PO SCH ×2 (09:12→21:00)
[2017-07-04] MEDS: SODIUM CHLORIDE 0.9% FLUSH 10 ML FLUSH IV FLUSH SCH ×2 (09:17→21:00)
--- NOTE | 2017-07-04 10:25 | HHI.NPPN ---
Subjective General Problems: Anemia, Heart Disease, Hypertension Renal Failure: Chronic, Stage III History of Present Illness 66-year-old male with a PMH of HTN, A. fib on Coumadin, CHF (Echo 09/17/13 w/ EF 30-35%), PVD, h/o Left BKA, AICD, Hepatitis C, Cirrhosis, DM, Chronic Back Pain , CKD, and Tobacco Abuse who presented to the emergency department with complaint of an acute onset of substernal chest pain. Additional Remarks OOB in chair. Good UOP. Denies any SOB (Corinne Vizcaino) Additional Remarks Patient seen, alert, sitting on chair. (Jai Godinez MD) Review of Systems General Constitutional: Fatigue (Corinne Vizcaino) Respiratory Respiratory Remarks Denies SOB (Corinne Vizcaino) Cardiovascular Cardiac Remarks Denies CP (Corinne Vizcaino) Gastrointestinal GI Remarks denies Abdominal pain (Corinne Vizcaino) Genitourinary Remarks denies dysuria (Corinne Vizcaino) Objective Data Data Vital Signs Date Time Temp Pulse Resp B/P (MAP) Pulse Ox O2 Delivery O2 Flow Rate FiO2 07/04/17 09:00 104 07/04/17 08:00 83 07/04/17 07:32 99 21 07/04/17 07:00 60 07/04/17 07:00 98.2 82 19 163/84 (110) 98 07/04/17 06:00 89 07/04/17 05:00 79 07/04/17 04:00 64 07/04/17 03:00 78 18 121/77 (92) 97 07/04/17 03:00 82 07/04/17 02:00 64 07/04/17 01:00 77 133/61 07/04/17 01:00 78 07/04/17 00:30 77 129/70 07/04/17 00:15 75 134/65 07/04/17 00:00 77 07/04/17 00:00 82 134/70 07/03/17 23:43 73 143/70 07/03/17 23:27 79 139/68 07/03/17 23:00 98.3 79 18 139/68 (91) 98 07/03/17 23:00 92 07/03/17 22:26 90 07/03/17 22:25 288 07/03/17 22:00 86 07/03/17 21:59 132/72 (92) 07/03/17 21:00 94 07/03/17 20:55 96 07/03/17 20:00 90 07/03/17 20:00 100 Room Air 07/03/17 20:00 97.9 91 18 172/83 (112) 100 07/03/17 19:00 91 07/03/17 18:00 82 07/03/17 17:00 96 07/03/17 16:00 94 07/03/17 15:00 95 Room Air 07/03/17 15:00 98.8 83 20 127/60 (82) 95 07/03/17 15:00 86 07/03/17 14:00 86 07/03/17 13:00 87 07/03/17 12:00 106 07/03/17 11:00 96 Room Air 07/03/17 11:00 98.2 103 22 157/94 (115) 96 07/03/17 11:00 103 07/03/17 11:00 98.2 106 20 97/50 (66) 96 (Corinne Vizcaino) -: 07/03/17223407/03/172234 Physical Exam General Appearance: No Acute Distress (Corinne Vizcaino) Throat Throat Exam: Oral Mucosa [place] & Moist (Corinne Vizcaino) Pulmonary Resp Exam: Breath Sounds Equal, No Distress, Decreased Bases (Corinne Vizcaino) Cardiology CV Exam: Regular, Normal Sinus Rhythm (Corinne Vizcaino) Gastrointestinal/Abdomen GI Exam: Soft, Non-Tender, Non-Distended (Corinne Vizcaino) Extremeties Extremities Exam: Trace Edema (Rt. TMA and Left BKA.) Extremeties Remarks right leg amputation (Corinne Vizcaino) Neurologic Neuro Exam: Alert, Awake, Oriented (Corinne Vizcaino) Psychiatric Psych Exam: Appropriate Responses (Corinne Vizcaino) Assessment/Plan Assessment Summary: CKD Stage III Electrolyte Assessment: Hyponatremia Problem List: (1) Chronic kidney disease (CKD) ICD Codes: N18.9 - Chronic kidney disease, unspecified Plan: Acute on chronic kidney disease. Renal function has improved and stable. Avoid fluid overload. Avoid nephrotoxic agents. (2) NSTEMI (non-ST elevated myocardial infarction) ICD Codes: I21.4 - Non-ST elevation (NSTEMI) myocardial infarction Plan: s/p CABG AICD fired last night On amiodarone. (3) Chronic hyponatremia ICD Codes: E87.1 - Chronic hyponatremia Status: Acute Plan: stable. (4) DM (diabetes mellitus) ICD Codes: E11.9 - Type 2 diabetes mellitus without complications Status: Chronic Plan: BS AC and HS Insulin dependent maintain BS 140mg/dl to 180 mg/dl (Corinne Vizcaino) Problem List: (1) Chronic kidney disease (CKD) ICD Codes: N18.9 - Chronic kidney disease, unspecified Plan: Acute on chronic kidney disease. Renal function has improved and stable. Avoid fluid overload. Avoid nephrotoxic agents. Patient seen and examined, agree with above. Creatinine is stable. (2) NSTEMI (non-ST elevated myocardial infarction) ICD Codes: I21.4 - Non-ST elevation (NSTEMI) myocardial infarction Plan: s/p CABG AICD fired last night On amiodarone. (3) Chronic hyponatremia ICD Codes: E87.1 - Chronic hyponatremia Status: Acute Plan: stable. (4) DM (diabetes mellitus) ICD Codes: E11.9 - Type 2 diabetes mellitus without complications Status: Chronic Plan: BS AC and HS Insulin dependent maintain BS 140mg/dl to 180 mg/dl (Jai Godinez MD) Problem Qualifiers (1) Chronic kidney disease (CKD): Qualified Codes: N18.3 - Chronic kidney disease, stage 3 (moderate) Corinne Vizcaino Jul 04, 2017 10:24 Jai Godinez MD Jul 04, 2017 16:15
--- NOTE | 2017-07-04 10:59 | PD.CAR.PN ---
CVT Progress Note Subjective/Hospital Course: 66 year-old male, patient of Dr. Del Toro, Dr. Di Dutton, presented to the emergency room with substernal chest pain on 06/23/2017, also with some shortness of breath, was noted to be severely hypertensive with a systolic blood pressure close to 200. He has an extensive cardiac background. 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 Troponin was 1.98 pounds. The patient underwent cardiac cath by for [id number] SC, showed an ejection fraction of 25%, 50% left ostial lesion, 95% proximal LAD. The diagonal had an 80% stenosis in the proximal lesion, the circ was 40%. The OM 90%. The RCA 50%. He also underwent 2-D echocardiogram, that showed an EF of 45%. He had some mild right atrial dilation, mild mitral valve regurgitation, tricuspid regurgitation. We were consulted to evaluate for coronary artery bypass grafting. PMH: chronic atrial fibrillation on Coumadin, hypertension, congestive heart failure with prior EF of 30-35, EF per cath was 25%. He has an ICD placement on the left upper chest, diabetes mellitus, chronic back pain. HX femoral aortic aneurysm, hepatitis C, liver cirrhosis, chronic back pain, Peripheral arterial disease. PAST SURGICAL HISTORY: ICD placement, Left [id number] amputation, Amputation of the right forefoot, Right carotid endarterectomy, Liver biopsy, Abdominal aortic aneurysm repair. 06/29 pt spoke to his brother, now is agreeable to proceed with surgery , which is scheduled for Tuesday carotid US : unremarkable vein mapping reviewed 06/30 pain free, on schedule for surgery in am 07/02/17 No complaints, doing well 07/03/17 Short run of wide complex tachy last night which resolved on its own. copious chest tube drainage - serous. No complaints today. 07/04/17 remains on amiodarone gtt/ will change to po at 2100 HR more controlled / BB increased diuresing well, chest tube drained 360cc/ 12hr tolerating PT/OT eval for rehab at discharge creatinine improving / Nephro following will need to resume coumadin when chest tube out Objective: Vital Signs Date Time Temp Pulse Resp B/P (MAP) Pulse Ox O2 Delivery O2 Flow Rate FiO2 07/04/17 09:00 104 07/04/17 08:00 83 07/04/17 07:32 99 21 07/04/17 07:00 60 07/04/17 07:00 98.2 82 19 163/84 (110) 98 07/04/17 06:00 89 07/04/17 05:00 79 07/04/17 04:00 64 07/04/17 03:00 78 18 121/77 (92) 97 07/04/17 03:00 82 07/04/17 02:00 64 07/04/17 01:00 77 133/61 07/04/17 01:00 78 07/04/17 00:30 77 129/70 07/04/17 00:15 75 134/65 07/04/17 00:00 77 07/04/17 00:00 82 134/70 07/03/17 23:43 73 143/70 07/03/17 23:27 79 139/68 07/03/17 23:00 98.3 79 18 139/68 (91) 98 07/03/17 23:00 92 07/03/17 22:26 90 07/03/17 22:25 288 07/03/17 22:00 86 07/03/17 21:59 132/72 (92) 07/03/17 21:00 94 07/03/17 20:55 96 07/03/17 20:00 90 07/03/17 20:00 100 Room Air 07/03/17 20:00 97.9 91 18 172/83 (112) 100 07/03/17 19:00 91 07/03/17 18:00 82 07/03/17 17:00 96 07/03/17 16:00 94 07/03/17 15:00 95 Room Air 07/03/17 15:00 98.8 83 20 127/60 (82) 95 07/03/17 15:00 86 07/03/17 14:00 86 07/03/17 13:00 87 07/03/17 12:00 106 07/03/17 11:00 96 Room Air 07/03/17 11:00 98.2 103 22 157/94 (115) 96 07/03/17 11:00 103 07/03/17 11:00 98.2 106 20 97/50 (66) 96 Result Diagram: 07/03/17223407/03/172234 Telemetry: afib (1) Non-ST elevation SC (NSTEMI) Plan: ASA, statin , BB amiodarone OOB/ PT/OT CM to eval for rehab placement (2) CAD (coronary artery disease) (3) Cardiomyopathy Plan: Dig level 0.6 (4) Chronic atrial fibrillation Plan: resume Coumadin post surgery (5) Abdominal aneurysm (6) Status post below knee amputation of left lower extremity Plan: PT/OT (7) CKD (chronic kidney disease) stage 3, GFR 30-59 ml/min Plan: creatinine 1.59 > 1.66> 1.49 nephro following (8) CHF (congestive heart failure) Plan: EF 25 % , no linnea with CKD stage 111 (9) DM (diabetes mellitus) Plan: Diabetic diet , insulin SS (10) Chronic hepatitis C without mention of hepatic coma (11) Ulcer of right heel Plan: wound care following / podiatry following (12) A-fib Plan: start coumadin when chest tubes out Problem Qualifiers (1) CAD (coronary artery disease): Qualified Codes: I25.119 - Atherosclerotic heart disease of [place] coronary artery with unspecified angina pectoris (2) A-fib: Qualified Codes: I48.0 - Paroxysmal atrial fibrillation Nika Egan Jul 04, 2017 10:59
--- NOTE | 2017-07-04 12:25 | HHI.PR ---
Subjective Remarks Patient seen this morning around 9:30 AM. Says he is feeling all right. Still no bowel movement during this admission. Discussed with nurse. Laxatives given this morning. Objective Vital Signs Date Time Temp Pulse Resp B/P (MAP) Pulse Ox O2 Delivery O2 Flow Rate FiO2 07/04/17 11:00 90 07/04/17 10:00 92 07/04/17 09:00 104 07/04/17 08:00 83 07/04/17 07:32 99 21 07/04/17 07:00 60 07/04/17 07:00 98.2 82 19 163/84 (110) 98 07/04/17 06:00 89 07/04/17 05:00 79 07/04/17 04:00 64 07/04/17 03:00 78 18 121/77 (92) 97 07/04/17 03:00 82 07/04/17 02:00 64 07/04/17 01:00 77 133/61 07/04/17 01:00 78 07/04/17 00:30 77 129/70 07/04/17 00:15 75 134/65 07/04/17 00:00 77 07/04/17 00:00 82 134/70 07/03/17 23:43 73 143/70 07/03/17 23:27 79 139/68 07/03/17 23:00 98.3 79 18 139/68 (91) 98 07/03/17 23:00 92 07/03/17 22:26 90 07/03/17 22:25 288 07/03/17 22:00 86 07/03/17 21:59 132/72 (92) 07/03/17 21:00 94 07/03/17 20:55 96 07/03/17 20:00 90 07/03/17 20:00 100 Room Air 07/03/17 20:00 97.9 91 18 172/83 (112) 100 07/03/17 19:00 91 07/03/17 18:00 82 07/03/17 17:00 96 07/03/17 16:00 94 07/03/17 15:00 95 Room Air 07/03/17 15:00 98.8 83 20 127/60 (82) 95 07/03/17 15:00 86 07/03/17 14:00 86 07/03/17 13:00 87 I/O 07/03/17 07/03/17 07/03/17 07/04/17 07/04/17 07/04/17 07:00 15:00 23:00 07:00 15:00 23:00 Intake Total 1540 ml 100 ml 720 ml 780 ml Output Total 1070 ml 1010 ml 1185 ml Balance 470 ml 100 ml -290 ml -405 ml Intake Oral 1290 ml 720 ml 480 ml IV Total 250 ml 100 ml 300 ml Output Urine Total 500 ml 600 ml 825 ml Chest Tube Drainage Total 570 ml 410 ml 360 ml # Bowel Movements 0 0 0 Result Diagram: 07/03/17223407/03/172234 Objective Remarks GENERAL: Sitting up in chair. Appears comfortable. Alert and oriented 3. SKIN: Warm and dry. HEAD: Normocephalic. EYES: No scleral icterus. No injection or drainage. NECK: Supple, trachea midline. No JVD. CARDIOVASCULAR: Regular rate and rhythm without murmurs, gallops, or rubs. RESPIRATORY: Breath sounds equal bilaterally. No accessory muscle use. GASTROINTESTINAL: Abdomen soft, non-tender, nondistended. MUSCULOSKELETAL: No cyanosis, or edema. Left-sided below the knee amputation. BACK: Nontender without obvious deformity. No CVA tenderness. A/P Assessment and Plan 66 years old man with //NSTEMI/Severe CAD He had a heart catheterization done on 06/28 showing severe CAD with severe 95 % prox stenosis of a large LAD. s/p CABG on 07/[address] Dumont . //CHF: Chronic. Systolic. Echo 09/07/13 w/ EF 30-35%, s/p AICD No evidence of fluid overload. BNP mildly elevated @230, CXR w/ no acute findings Continue current regimen. //Constipation. = Laxatives given 07/04. Continue to await return of bowel function //Postoperative. Leukocytosis: = 07/04 Leukocytosis 21.5 on 07/02. Down to 15.. Follow-up labs tomorrow //A-fib: Chronic. //Supra Therapeutic INR on admission (6.0) resolved. Continue home Digoxin/Metoprolol. INR supra therapeutic, Hold Coumadin. == Per surgery notes, can be restarted after chest tube iss removed. // Chronic Pain syndrome: Status post left BKA continue home Morphine PO Hoop Bender Tank Consulted pending report. //DM: Sliding scale w/ Accu-Cheks, continue home Insulin // Tobacco Abuse: Ativan prn, no NicoDerm to avoid vasoconstriction. //Pruritic rash improved on betamethasone cream. // DVT Prophylaxis: Heparin Discharge Planning Once medically clear patient may need to go to [facility] due to the complexity of his medical management and multiple comorbidities. Hamzah Mireles MD Jul 04, 2017 12:25
[2017-07-04] MEDS: LACTIC ACID (AMMONIUM LACTATE) 12% LOTION 225 GM BTL TOPICAL SCH ×2 (16:24→21:00)
[2017-07-04] MEDS: BETAMETHASONE DIPROPIONATE 0.05% CREAM 15 GM TOPICAL SCH ×2 (16:24→21:00)
[2017-07-04] MEDS: COLLAGENASE OINT 30 GM TUBE TOPICAL SCH (16:24)
--- NOTE | 2017-07-04 18:40 | EKG ---
Date Performed: 07/03/2017 Time Performed: 22:36:50 PTAGE: 66 years EKG: Atrial fibrillation Poor R wave progression Extensive ST-T changes may be due to myocardial ischemia Low QRS voltages in limb leads Abnormal ECG PREVIOUS TRACING : 07/02/2017 04.16 DOCTOR: Srikanth Fernandez Interpretating Date/Time 07/04/2017 18:40:02
--- NOTE | 2017-07-04 19:15 | PD.CARD.PN ---
Subjective Subjective Remarks No CP, mild SOB, constipated, VT tx w ICD shock Objective Medications Current Medications Medications (Trade) Dose Ordered Sig/Kelly Route Start Time Stop Time Status Last Admin (NS Flush) 2 ml UNSCH PRN IV FLUSH 06/23/17 11:15 (NS Flush) 2 ml BID IV FLUSH 06/23/17 21:00 07/04/17 09:17 (Tylenol) 650 mg Q6H PRN PO 06/23/17 11:15 (Narcan Inj) 0.4 mg UNSCH PRN IV PUSH 06/23/17 11:15 (Lipitor) 80 mg HS PO 06/23/17 21:00 07/03/17 20:28 (Lanoxin) 0.125 mg DAILY PO 06/24/17 09:00 07/04/17 09:11 (Lac-Hydrin 12% Lotion) 1 applic BID TOPICAL 06/27/17 21:00 07/04/17 16:24 (Santyl Oint) 1 applic DAILY TOPICAL 06/29/17 09:00 07/04/17 16:24 (Diprosone 0.05% Cream) 1 applic BID TOPICAL 06/30/17 16:15 07/04/17 16:24 (Aspirin Chew) 81 mg DAILY PO 07/02/17 09:00 07/04/17 09:12 (Protonix) 40 mg DAILY@06 PO 07/02/17 06:00 07/04/17 06:00 (Tylenol) 650 mg Q4H PRN PO 07/01/17 18:45 (Zofran Inj) 4 mg Q6H PRN IV PUSH 07/01/17 18:45 (Duoneb Neb) 1 ampule Q2HR NEB PRN NEB 07/01/17 18:45 07/02/17 00:47 (Colace) 100 mg BID PO 07/02/17 21:00 07/04/17 09:12 (Theragran M Tab) 1 tab DAILY PO 07/03/17 09:00 07/04/17 09:11 (Milk Of Magnesia Liq) 30 ml DAILY PO 07/02/17 11:00 07/04/17 09:11 (Dulcolax Supp) 10 mg UNSCH PRN RECTAL 07/02/17 09:45 (Miralax) 17 gm DAILY PO 07/03/17 09:00 07/04/17 09:11 (Senokot) 8.6 mg HS PO 07/02/17 21:00 07/03/17 20:28 (Fleets Enema (Adult)) 118 ml UNSCH PRN RECTAL 07/02/17 09:45 (D50w (Vial) Inj) 50 ml UNSCH PRN IV PUSH 07/02/17 09:45 (Glucagon Inj) 1 mg UNSCH PRN OTHER 07/02/17 09:45 (Apresoline Inj) 10 mg Q30M PRN IV PUSH 07/02/17 09:45 (Msir) 15 mg Q6H PRN PO 07/02/17 11:00 07/04/17 15:33 Amiodarone HCl 450 mg/Sodium Chloride 250 ml @ 33.33 mls/ hr TITRATE PRN IV 07/03/17 23:00 07/04/17 08:00 (Coreg) 6.25 mg Q12HR PO 07/04/17 21:00 (NovoLOG SUPPLEMENTAL SCALE) 1 ACHS SQ 07/04/17 12:00 07/04/17 17:40 (Cordarone) 400 mg Q8HR PO 07/04/17 21:00 Vital Signs / I&O Vital Signs Date Time Temp Pulse Resp B/P (MAP) Pulse Ox O2 Delivery O2 Flow Rate FiO2 07/04/17 18:00 75 07/04/17 17:00 78 07/04/17 16:55 17 07/04/17 16:00 80 07/04/17 15:00 98.7 72 19 165/81 (109) 100 07/04/17 15:00 85 07/04/17 14:00 83 07/04/17 13:00 65 07/04/17 12:00 78 07/04/17 11:00 90 07/04/17 11:00 98.4 81 19 158/76 (103) 95 07/04/17 10:00 92 07/04/17 09:00 104 07/04/17 08:00 83 07/04/17 08:00 82 163/84 07/04/17 07:32 99 21 07/04/17 07:00 60 07/04/17 07:00 98.2 82 19 163/84 (110) 98 07/04/17 06:00 89 07/04/17 05:00 79 07/04/17 04:00 64 07/04/17 03:00 78 18 121/77 (92) 97 07/04/17 03:00 82 07/04/17 02:00 64 07/04/17 01:00 77 133/61 07/04/17 01:00 78 07/04/17 00:30 77 129/70 07/04/17 00:15 75 134/65 07/04/17 00:00 77 07/04/17 00:00 82 134/70 07/03/17 23:43 73 143/70 07/03/17 23:27 79 139/68 07/03/17 23:00 98.3 79 18 139/68 (91) 98 07/03/17 23:00 92 07/03/17 22:26 90 07/03/17 22:25 288 07/03/17 22:00 86 07/03/17 21:59 132/72 (92) 07/03/17 21:00 94 07/03/17 20:55 96 07/03/17 20:00 90 07/03/17 20:00 100 Room Air 07/03/17 20:00 97.9 91 18 172/83 (112) 100 I/O 07/03/17 07/03/17 07/03/17 07/04/17 07/04/17 07/04/17 07:00 15:00 23:00 07:00 15:00 23:00 Intake Total 1540 ml 100 ml 720 ml 780 ml 630 ml Output Total 1070 ml 1010 ml 1185 ml 835 ml Balance 470 ml 100 ml -290 ml -405 ml -205 ml Intake Oral 1290 ml 720 ml 480 ml 480 ml IV Total 250 ml 100 ml 300 ml 150 ml Output Urine Total 500 ml 600 ml 825 ml 675 ml Chest Tube Drainage Total 570 ml 410 ml 360 ml 160 ml # Bowel Movements 0 0 0 Physical Exam GENERAL: In NAD SKIN: Warm and dry. HEAD: Normocephalic. EYES: No scleral icterus. No injection or drainage. NECK: Supple, trachea midline. No JVD or lymphadenopathy. CARDIOVASCULAR: Irregular rate and rhythm, without murmurs, gallops, or rubs. RESPIRATORY: Breath sounds equal bilaterally. No accessory muscle use. GASTROINTESTINAL: Abdomen soft, non-tender, nondistended. MUSCULOSKELETAL: No cyanosis, mild LE edema. S/p bilat LE amputations Laboratory Laboratory Tests Test 07/03/17 22:35 White Blood Count 15.2 TH/MM3 Red Blood Count 3.03 MIL/MM3 Hemoglobin 9.4 GM/DL Hematocrit 27.5 % Mean Corpuscular Volume 90.9 FL Mean Corpuscular Hemoglobin 31.0 PG Mean Corpuscular Hemoglobin Concent 34.1 % Red Cell Distribution Width 15.8 % Platelet Count 172 TH/MM3 Mean Platelet Volume 7.9 FL Neutrophils (%) (Auto) 79.9 % Lymphocytes (%) (Auto) 11.3 % Monocytes (%) (Auto) 7.6 % Eosinophils (%) (Auto) 0.4 % Basophils (%) (Auto) 0.8 % Neutrophils # (Auto) 12.1 TH/MM3 Lymphocytes # (Auto) 1.7 TH/MM3 Monocytes # (Auto) 1.2 TH/MM3 Eosinophils # (Auto) 0.1 TH/MM3 Basophils # (Auto) 0.1 TH/MM3 CBC Comment DIFF FINAL Differential Comment Blood Urea Nitrogen 33 MG/DL Creatinine 1.49 MG/DL Random Glucose 93 MG/DL Calcium Level 7.9 MG/DL Sodium Level 135 MEQ/L Potassium Level 4.1 MEQ/L Chloride Level 101 MEQ/L Carbon Dioxide Level 27.3 MEQ/L Anion Gap 7 MEQ/L Estimat Glomerular Filtration Rate 47 ML/MIN Assessment and Plan Problem List: (1) Non-ST elevation DC (NSTEMI) ICD Codes: I21.4 - Non-ST elevation (NSTEMI) myocardial infarction Status: Acute (2) CAD (coronary artery disease) ICD Codes: I25.10 - Atherosclerotic heart disease of [place] coronary artery without angina pectoris Status: Chronic (3) Cardiomyopathy ICD Codes: I42.9 - Cardiomyopathy, unspecified (4) Chronic atrial fibrillation ICD Codes: I48.2 - Chronic atrial fibrillation Status: Chronic (5) Abdominal aneurysm ICD Codes: I71.4 - Abdominal aortic aneurysm Status: Acute (6) Status post below knee amputation of left lower extremity ICD Codes: Z89.512 - Acquired absence of left leg below knee Status: Acute (7) CKD (chronic kidney disease) stage 3, GFR 30-59 ml/min ICD Codes: N18.3 - Chronic kidney disease, stage 3 (moderate) Status: Chronic (8) CHF (congestive heart failure) ICD Codes: I50.9 - Heart failure, unspecified Status: Chronic (9) DM (diabetes mellitus) ICD Codes: E11.9 - Type 2 diabetes mellitus without complications Status: Chronic (10) Chronic hepatitis C without mention of hepatic coma ICD Codes: B18.2 - Chronic hepatitis C virus infection Status: Acute (11) Ulcer of right heel ICD Codes: L97.419 - Non-pressure chronic ulcer of right heel and midfoot with unspecified severity (12) A-fib ICD Codes: I48.91 - Unspecified atrial fibrillation Status: Chronic Assessment and Plan Sustained VT tx by ICD shock, on amio. Increase beta giovani, switch amio to PO. No angina or CHF. CABG tolerated well, LV fx improved. Continue current program. Aggressive risk factor modification. Increase activity. Problem Qualifiers (1) CAD (coronary artery disease): Qualified Codes: I25.119 - Atherosclerotic heart disease of [place] coronary artery with unspecified angina pectoris (2) A-fib: Qualified Codes: I48.0 - Paroxysmal atrial fibrillation Nancy Rodriguez MD Jul 04, 2017 19:15
[2017-07-04] MEDS ORDERED: CARVEDILOL 6.25 MG TAB PO SCH (21:00)
[2017-07-04] MEDS ORDERED: AMIODARONE 200 MG TAB PO SCH (21:00)
[2017-07-04] MEDS: CARVEDILOL 12.5 MG TAB PO SCH (22:25)
[2017-07-04] MEDS: ATORVASTATIN 80 MG TAB PO SCH (22:25)
[2017-07-04] MEDS: SENNOSIDES 8.6 MG TAB PO SCH (22:25)
[2017-07-05] VITALS (30 sets, daily range): BP systolic 94–151; BP diastolic 52–70; PULSE 50–82; RESP 17–19; TEMP 96.7–97.9; O2SAT 92–100
[2017-07-05] MEDS: RESP: ALBUTEROL 2.5 MG/IPRATROPIUM 0.5 MG NEB (PRN) NEB ×3 (00:21→19:45)
[2017-07-05] MEDS: PANTOPRAZOLE SOD 40 MG DELAYED RELEASE TAB PO SCH (05:27)
[2017-07-05] MEDS: INSULIN ASPART SUPPLEMENTAL SCALE SQ SCH ×4 (08:00→22:30)
[2017-07-05] MEDS: BETAMETHASONE DIPROPIONATE 0.05% CREAM 15 GM TOPICAL SCH ×2 (09:00→22:30)
[2017-07-05] MEDS: SODIUM CHLORIDE 0.9% FLUSH 10 ML FLUSH IV FLUSH SCH ×2 (09:00→22:28)
[2017-07-05] MEDS: POLYETHYLENE GLYCOL 17 GM PKG PO SCH (09:05)
[2017-07-05] MEDS: ASPIRIN 81 MG CHEW TAB PO SCH (09:07)
[2017-07-05] MEDS: MAGNESIUM HYDROXIDE SUSP 30 ML CUP PO SCH (09:07)
[2017-07-05] MEDS: DOCUSATE SODIUM 100 MG CAP PO SCH ×2 (09:08→21:00)
[2017-07-05] MEDS: MULTIVITAMINS/MINERALS THERAPEUTIC TAB PO SCH (09:08)
[2017-07-05] MEDS: DIGOXIN 0.125 MG TAB PO SCH (09:08)
[2017-07-05] MEDS: AMIODARONE 200 MG TAB PO SCH ×2 (09:08→22:28)
[2017-07-05] MEDS: CARVEDILOL 12.5 MG TAB PO SCH ×2 (09:08→22:28)
[2017-07-05] MEDS: MORPHINE SULFATE 15 MG TAB PO PRN ×3 (09:09→22:29)
--- NOTE | 2017-07-05 10:10 | PD.CAR.PN ---
CVT Progress Note Subjective/Hospital Course: 66 year-old male, patient of Dr. Del Toro, Dr. Di Dutton, presented to the emergency room with substernal chest pain on 06/23/2017, also with some shortness of breath, was noted to be severely hypertensive with a systolic blood pressure close to 200. He has an extensive cardiac background. 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 Troponin was 1.98 pounds. The patient underwent cardiac cath by for [id number] ND, showed an ejection fraction of 25%, 50% left ostial lesion, 95% proximal LAD. The diagonal had an 80% stenosis in the proximal lesion, the circ was 40%. The OM 90%. The RCA 50%. He also underwent 2-D echocardiogram, that showed an EF of 45%. He had some mild right atrial dilation, mild mitral valve regurgitation, tricuspid regurgitation. We were consulted to evaluate for coronary artery bypass grafting. PMH: chronic atrial fibrillation on Coumadin, hypertension, congestive heart failure with prior EF of 30-35, EF per cath was 25%. He has an ICD placement on the left upper chest, diabetes mellitus, chronic back pain. HX femoral aortic aneurysm, hepatitis C, liver cirrhosis, chronic back pain, Peripheral arterial disease. PAST SURGICAL HISTORY: ICD placement, Left [id number] amputation, Amputation of the right forefoot, Right carotid endarterectomy, Liver biopsy, Abdominal aortic aneurysm repair. 06/29 pt spoke to his brother, now is agreeable to proceed with surgery , which is scheduled for Tuesday carotid US : unremarkable vein mapping reviewed 06/30 pain free, on schedule for surgery in am 07/02/17 No complaints, doing well 07/03/17 Short run of wide complex tachy last night which resolved on its own. copious chest tube drainage - serous. No complaints today. 07/04/17 remains on amiodarone gtt/ will change to po at 2100 HR more controlled / BB increased diuresing well, chest tube drained 360cc/ 12hr tolerating PT/OT eval for rehab at discharge creatinine improving / Nephro following will need to resume coumadin when chest tube out 07/05 chest tube removed without difficulty not feeling well today pale , feels weak and a little short of breath labs pending / CXR pending intermittent v paced, no more pvc's noted BP 130/60 Dr quadrat following heart rhythm Objective: GENERAL: feels weak, conjunctiva pale SKIN: Warm and dry. prevena to chest HEAD: Normocephalic. EYES: No scleral icterus. No injection or drainage. NECK: Supple, trachea midline. No JVD or lymphadenopathy. CARDIOVASCULAR: irregular rhythm / will start coumadin today murmurs, gallops, or rubs. RESPIRATORY: diminished in bases chest tube removed without difficulty Breath sounds equal bilaterally. No accessory muscle use. GASTROINTESTINAL: Abdomen soft, non-tender, nondistended. MUSCULOSKELETAL: No cyanosis, or edema. L BKA BACK: Nontender without obvious deformity. No CVA tenderness. Vital Signs Date Time Temp Pulse Resp B/P (MAP) Pulse Ox O2 Delivery O2 Flow Rate FiO2 07/05/17 10:00 60 07/05/17 09:45 121/64 (83) 07/05/17 09:00 60 07/05/17 08:00 60 07/05/17 07:15 61 19 133/61 (85) 100 07/05/17 07:00 60 07/05/17 06:11 60 07/05/17 05:48 60 07/05/17 04:05 60 07/05/17 03:50 96.7 60 18 94/52 (66) 92 07/05/17 03:09 60 07/05/17 02:24 60 07/05/17 01:06 66 07/05/17 00:28 82 07/04/17 23:48 71 147/76 07/04/17 23:15 97.6 84 16 183/89 (120) 100 07/04/17 23:00 83 07/04/17 22:30 78 07/04/17 21:45 99 07/04/17 21:10 82 07/04/17 20:15 82 07/04/17 19:49 86 07/04/17 19:38 97.4 82 17 150/76 (100) 98 07/04/17 18:00 75 07/04/17 17:00 78 07/04/17 16:55 17 07/04/17 16:00 80 07/04/17 15:00 98.7 72 19 165/81 (109) 100 07/04/17 15:00 85 07/04/17 14:00 83 07/04/17 13:00 65 07/04/17 12:00 78 07/04/17 11:00 90 07/04/17 11:00 98.4 81 19 158/76 (103) 95 Result Diagram: 07/03/17223407/03/172234 (1) Non-ST elevation ND (NSTEMI) Plan: ASA, statin , BB amiodarone OOB/ PT/OT CM to eval for rehab placement (2) CAD (coronary artery disease) (3) Cardiomyopathy Plan: Dig level 0.6 (4) Chronic atrial fibrillation Plan: resume Coumadin post surgery (5) Abdominal aneurysm (6) Status post below knee amputation of left lower extremity Plan: PT/OT (7) CKD (chronic kidney disease) stage 3, GFR 30-59 ml/min Plan: creatinine 1.59 > 1.66> 1.49/ labs pending nephro following (8) CHF (congestive heart failure) Plan: EF 25 % , no linnea with CKD stage 111 (9) DM (diabetes mellitus) Plan: Diabetic diet , insulin SS (10) Chronic hepatitis C without mention of hepatic coma (11) Ulcer of right heel Plan: wound care following / podiatry following (12) A-fib Plan: start coumadin (13) S/P CABG x 3 Plan: statin , BB , amiodarone ASA OOB with PT check labs check CXR Problem Qualifiers (1) CAD (coronary artery disease): Qualified Codes: I25.119 - Atherosclerotic heart disease of [place] coronary artery with unspecified angina pectoris (2) A-fib: Qualified Codes: I48.0 - Paroxysmal atrial fibrillation Nika Egan Jul 05, 2017 10:10
--- NOTE | 2017-07-05 13:18 | RADRPT ---
EXAM DATE/TIME: 07/05/2017 11:54 [facility] COMPARISON: CHEST SINGLE AP, July 02, 2017, 3:34. INDICATIONS : Follow up chest tube removal, evaluate for pneumothorax MEDICAL HISTORY : Hepatitis C. Diabetes mellitus type II. Congestive heart failure. cirrhosis, PVD, CVD, AAA SURGICAL HISTORY : Abdominal aortic aneurysm repair. Pacemaker. Carotid endarterectomy. ENCOUNTER: Subsequent ACUITY: 4 - 6 days PAIN SCORE: 0/10 LOCATION: Bilateral chest FINDINGS: A single view of the chest demonstrates cardiomegaly with bibasilar airspace disease and probable sma ll effusions. Status post CABG. Left-sided defibrillator seen with single intact lead. Osseous struc tures are intact. CONCLUSION: Cardiomegaly with bibasilar airspace disease and probable small pleural effusions. Farhat Antonio MD on July 05, 2017 at 13:15 Board Certified Radiologist. This report was verified electronically.
[2017-07-05 13:19] LABS: INTERNATIONAL NORMALIZED RATIO 1.2 RATIO; PROTHROMBIN TIME - PATIENT 12.3 SEC (9.8-11.6)
--- NOTE | 2017-07-05 13:25 | PD.CARD.PN ---
Subjective Subjective Remarks No CP, mild SOB, no recurrent VT Objective Medications Current Medications Medications (Trade) Dose Ordered Sig/Kelly Route Start Time Stop Time Status Last Admin (NS Flush) 2 ml UNSCH PRN IV FLUSH 06/23/17 11:15 (NS Flush) 2 ml BID IV FLUSH 06/23/17 21:00 07/04/17 09:17 (Tylenol) 650 mg Q6H PRN PO 06/23/17 11:15 (Narcan Inj) 0.4 mg UNSCH PRN IV PUSH 06/23/17 11:15 (Lipitor) 80 mg HS PO 06/23/17 21:00 07/04/17 22:25 (Lanoxin) 0.125 mg DAILY PO 06/24/17 09:00 07/05/17 09:08 (Lac-Hydrin 12% Lotion) 1 applic BID TOPICAL 06/27/17 21:00 07/04/17 21:00 (Santyl Oint) 1 applic DAILY TOPICAL 06/29/17 09:00 07/04/17 16:24 (Diprosone 0.05% Cream) 1 applic BID TOPICAL 06/30/17 16:15 07/04/17 21:00 (Aspirin Chew) 81 mg DAILY PO 07/02/17 09:00 07/05/17 09:07 (Protonix) 40 mg DAILY@06 PO 07/02/17 06:00 07/05/17 05:27 (Tylenol) 650 mg Q4H PRN PO 07/01/17 18:45 (Zofran Inj) 4 mg Q6H PRN IV PUSH 07/01/17 18:45 07/04/17 20:51 (Duoneb Neb) 1 ampule Q2HR NEB PRN NEB 07/01/17 18:45 07/05/17 00:21 (Colace) 100 mg BID PO 07/02/17 21:00 07/05/17 09:08 (Theragran M Tab) 1 tab DAILY PO 07/03/17 09:00 07/05/17 09:08 (Milk Of Magnesia Liq) 30 ml DAILY PO 07/02/17 11:00 07/05/17 09:07 (Dulcolax Supp) 10 mg UNSCH PRN RECTAL 07/02/17 09:45 (Miralax) 17 gm DAILY PO 07/03/17 09:00 07/05/17 09:05 (Senokot) 8.6 mg HS PO 07/02/17 21:00 07/04/17 22:25 (Fleets Enema (Adult)) 118 ml UNSCH PRN RECTAL 07/02/17 09:45 (D50w (Vial) Inj) 50 ml UNSCH PRN IV PUSH 07/02/17 09:45 (Glucagon Inj) 1 mg UNSCH PRN OTHER 07/02/17 09:45 (Apresoline Inj) 10 mg Q30M PRN IV PUSH 07/02/17 09:45 (Msir) 15 mg Q6H PRN PO 07/02/17 11:00 07/05/17 09:09 (NovoLOG SUPPLEMENTAL SCALE) 1 ACHS SQ 07/04/17 12:00 07/05/17 12:15 (Coreg) 12.5 mg BID PO 07/04/17 21:00 07/05/17 09:08 (Cordarone) 400 mg Q12HR PO 07/05/17 09:00 07/05/17 09:08 (Coumadin) 5 mg DAILY@1600 PO 07/05/17 16:00 UNV Vital Signs / I&O Vital Signs Date Time Temp Pulse Resp B/P (MAP) Pulse Ox O2 Delivery O2 Flow Rate FiO2 07/05/17 13:22 17 07/05/17 13:00 53 07/05/17 12:00 60 07/05/17 11:00 60 19 114/57 (76) 100 07/05/17 11:00 60 07/05/17 10:05 98 Nasal Cannula 2.00 07/05/17 10:00 60 07/05/17 09:45 121/64 (83) 07/05/17 09:00 60 07/05/17 08:00 60 07/05/17 07:15 61 19 133/61 (85) 100 07/05/17 07:00 60 07/05/17 06:11 60 07/05/17 05:48 60 07/05/17 04:05 60 07/05/17 03:50 96.7 60 18 94/52 (66) 92 07/05/17 03:09 60 07/05/17 02:24 60 07/05/17 01:06 66 07/05/17 00:28 82 07/04/17 23:48 71 147/76 07/04/17 23:15 97.6 84 16 183/89 (120) 100 07/04/17 23:00 83 07/04/17 22:30 78 07/04/17 21:45 99 07/04/17 21:10 82 07/04/17 20:15 82 07/04/17 19:49 86 07/04/17 19:38 97.4 82 17 150/76 (100) 98 07/04/17 18:00 75 07/04/17 17:00 78 07/04/17 16:00 80 07/04/17 15:00 98.7 72 19 165/81 (109) 100 07/04/17 15:00 85 07/04/17 14:00 83 I/O 07/04/17 07/04/17 07/04/17 07/05/17 07/05/17 07/05/17 07:00 15:00 23:00 07:00 15:00 23:00 Intake Total 780 ml 630 ml 355 ml 250 ml Output Total 1185 ml 835 ml 390 ml Balance -405 ml -205 ml -35 ml 250 ml Intake Oral 480 ml 480 ml 355 ml IV Total 300 ml 150 ml 250 ml Output Urine Total 825 ml 675 ml 350 ml Chest Tube Drainage Total 360 ml 160 ml 40 ml # Bowel Movements 0 1 Physical Exam GENERAL: In NAD SKIN: Warm and dry. HEAD: Normocephalic. EYES: No scleral icterus. No injection or drainage. NECK: Supple, trachea midline. No JVD or lymphadenopathy. CARDIOVASCULAR: Irregular rate and rhythm, without murmurs, gallops, or rubs. RESPIRATORY: Breath sounds equal bilaterally. No accessory muscle use. GASTROINTESTINAL: Abdomen soft, non-tender, nondistended. MUSCULOSKELETAL: No cyanosis, mild LE edema. S/p bilat LE amputations Laboratory Laboratory Tests Test 07/05/17 12:52 07/05/17 13:05 Prothrombin Time 12.3 SEC Prothromb Time International Ratio 1.2 RATIO Assessment and Plan Problem List: (1) Non-ST elevation MD (NSTEMI) ICD Codes: I21.4 - Non-ST elevation (NSTEMI) myocardial infarction Status: Acute (2) CAD (coronary artery disease) ICD Codes: I25.10 - Atherosclerotic heart disease of [place] coronary artery without angina pectoris Status: Chronic (3) Cardiomyopathy ICD Codes: I42.9 - Cardiomyopathy, unspecified (4) Chronic atrial fibrillation ICD Codes: I48.2 - Chronic atrial fibrillation Status: Chronic (5) Abdominal aneurysm ICD Codes: I71.4 - Abdominal aortic aneurysm Status: Acute (6) Status post below knee amputation of left lower extremity ICD Codes: Z89.512 - Acquired absence of left leg below knee Status: Acute (7) CKD (chronic kidney disease) stage 3, GFR 30-59 ml/min ICD Codes: N18.3 - Chronic kidney disease, stage 3 (moderate) Status: Chronic (8) CHF (congestive heart failure) ICD Codes: I50.9 - Heart failure, unspecified Status: Chronic (9) DM (diabetes mellitus) ICD Codes: E11.9 - Type 2 diabetes mellitus without complications Status: Chronic (10) Chronic hepatitis C without mention of hepatic coma ICD Codes: B18.2 - Chronic hepatitis C virus infection Status: Acute (11) Ulcer of right heel ICD Codes: L97.419 - Non-pressure chronic ulcer of right heel and midfoot with unspecified severity (12) A-fib ICD Codes: I48.91 - Unspecified atrial fibrillation Status: Chronic (13) S/P CABG x 3 ICD Codes: Z95.1 - Presence of aortocoronary bypass graft Assessment and Plan No recurrent VT/VF, continue amio loading. Continue beta giovani. No angina or CHF. Aggressive risk factor modification. Increase activity, PT. Problem Qualifiers (1) CAD (coronary artery disease): Qualified Codes: I25.119 - Atherosclerotic heart disease of [place] coronary artery with unspecified angina pectoris (2) A-fib: Qualified Codes: I48.0 - Paroxysmal atrial fibrillation Nancy Rodriguez MD Jul 05, 2017 13:25
[2017-07-05 13:40] LABS: CALCIUM 8.4 MG/DL (8.5-10.1); CREATININE 1.66 MG/DL (0.60-1.30); MAGNESIUM 2.4 MG/DL (1.5-2.5)
[2017-07-05] MEDS: LACTIC ACID (AMMONIUM LACTATE) 12% LOTION 225 GM BTL TOPICAL SCH ×2 (14:22→22:31)
[2017-07-05] MEDS: COLLAGENASE OINT 30 GM TUBE TOPICAL SCH (14:23)
--- NOTE | 2017-07-05 14:23 | PD.CAR.PN ---
CVT Progress Note Subjective/Hospital Course: 66 year-old male, patient of Dr. Del Toro, Dr. Di Dutton, presented to the emergency room with substernal chest pain on 06/23/2017, also with some shortness of breath, was noted to be severely hypertensive with a systolic blood pressure close to 200. He has an extensive cardiac background. 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 Troponin was 1.98 pounds. The patient underwent cardiac cath by for [id number] ND, showed an ejection fraction of 25%, 50% left ostial lesion, 95% proximal LAD. The diagonal had an 80% stenosis in the proximal lesion, the circ was 40%. The OM 90%. The RCA 50%. He also underwent 2-D echocardiogram, that showed an EF of 45%. He had some mild right atrial dilation, mild mitral valve regurgitation, tricuspid regurgitation. We were consulted to evaluate for coronary artery bypass grafting. PMH: chronic atrial fibrillation on Coumadin, hypertension, congestive heart failure with prior EF of 30-35, EF per cath was 25%. He has an ICD placement on the left upper chest, diabetes mellitus, chronic back pain. HX femoral aortic aneurysm, hepatitis C, liver cirrhosis, chronic back pain, Peripheral arterial disease. PAST SURGICAL HISTORY: ICD placement, Left [id number]-bywp amputation, Amputation of the right forefoot, Right carotid endarterectomy, Liver biopsy, Abdominal aortic aneurysm repair. 06/29 pt spoke to his brother, now is agreeable to proceed with surgery , which is scheduled for Tuesday carotid US : unremarkable vein mapping reviewed 06/30 pain free, on schedule for surgery in am 07/02/17 No complaints, doing well 07/03/17 Short run of wide complex tachy last night which resolved on its own. copious chest tube drainage - serous. No complaints today. 07/04/17 remains on amiodarone gtt/ will change to po at 2100 HR more controlled / BB increased diuresing well, chest tube drained 360cc/ 12hr tolerating PT/OT eval for rehab at discharge creatinine improving / Nephro following will need to resume coumadin when chest tube out 07/05 chest tube removed without difficulty not feeling well today pale , feels weak and a little short of breath labs pending / CXR pending intermittent v paced, no more pvc's noted BP 130/60 Dr vargas following heart rhythm addendum lab resulted creatinine 1.66 K+ 6.1 stat redraw/ notify nephrology immediately for treatment Objective: Vital Signs Date Time Temp Pulse Resp B/P (MAP) Pulse Ox O2 Delivery O2 Flow Rate FiO2 07/05/17 13:22 17 07/05/17 13:00 53 07/05/17 12:00 60 07/05/17 11:00 60 19 114/57 (76) 100 07/05/17 11:00 60 07/05/17 10:05 98 Nasal Cannula 2.00 07/05/17 10:00 60 07/05/17 09:45 121/64 (83) 07/05/17 09:00 60 07/05/17 08:00 60 07/05/17 07:15 61 19 133/61 (85) 100 07/05/17 07:00 60 07/05/17 06:11 60 07/05/17 05:48 60 07/05/17 04:05 60 07/05/17 03:50 96.7 60 18 94/52 (66) 92 07/05/17 03:09 60 07/05/17 02:24 60 07/05/17 01:06 66 07/05/17 00:28 82 07/04/17 23:48 71 147/76 07/04/17 23:15 97.6 84 16 183/89 (120) 100 07/04/17 23:00 83 07/04/17 22:30 78 07/04/17 21:45 99 07/04/17 21:10 82 07/04/17 20:15 82 07/04/17 19:49 86 07/04/17 19:38 97.4 82 17 150/76 (100) 98 07/04/17 18:00 75 07/04/17 17:00 78 07/04/17 16:00 80 07/04/17 15:00 98.7 72 19 165/81 (109) 100 07/04/17 15:00 85 Labs: Laboratory Tests Test 07/05/17 12:52 07/05/17 13:05 Prothrombin Time 12.3 SEC (9.8-11.6) Prothromb Time International Ratio 1.2 RATIO Blood Urea Nitrogen 37 MG/DL (7-18) Creatinine 1.66 MG/DL (0.60-1.30) Random Glucose 244 MG/DL (74-106) Calcium Level 8.4 MG/DL (8.5-10.1) Magnesium Level 2.4 MG/DL (1.5-2.5) Sodium Level 129 MEQ/L (136-145) Potassium Level 6.1 MEQ/L (3.5-5.1) Chloride Level 96 MEQ/L (98-107) Carbon Dioxide Level 25.0 MEQ/L (21.0-32.0) Anion Gap 8 MEQ/L (5-15) Estimat Glomerular Filtration Rate 42 ML/MIN (>89) Result Diagram: 07/03/17 2235 07/05/17 1305 (1) Non-ST elevation ND (NSTEMI) Plan: ASA, statin , BB amiodarone OOB/ PT/OT CM to eval for rehab placement (2) CAD (coronary artery disease) (3) Cardiomyopathy Plan: Dig level 0.6/ RECHECK IN AM (4) Chronic atrial fibrillation Plan: resume Coumadin post surgery (5) Abdominal aneurysm (6) Status post below knee amputation of left lower extremity Plan: PT/OT (7) CKD (chronic kidney disease) stage 3, GFR 30-59 ml/min Plan: creatinine 1.59 > 1.66> 1.49 > 1.66 k+ 6.1 REDRAW pending / notify nephrology received 14 units at 12 noon re-draw labs in am (8) CHF (congestive heart failure) Plan: EF 25 % , no linnea with CKD stage 111 (9) DM (diabetes mellitus) Plan: Diabetic diet , insulin SS (10) Chronic hepatitis C without mention of hepatic coma (11) Ulcer of right heel Plan: wound care following / podiatry following (12) A-fib Plan: start coumadin (13) S/P CABG x 3 Plan: statin , BB , amiodarone ASA OOB with PT check labs check CXR Problem Qualifiers (1) CAD (coronary artery disease): Qualified Codes: I25.119 - Atherosclerotic heart disease of [place] coronary artery with unspecified angina pectoris (2) A-fib: Qualified Codes: I48.0 - Paroxysmal atrial fibrillation Nika Egan Jul 05, 2017 14:23
[2017-07-05] MEDS: WARFARIN SOD 5 MG TAB PO SCH (16:08)
--- NOTE | 2017-07-05 16:54 | HHI.NPPN ---
Subjective General Problems: Anemia, Heart Disease, Hypertension Renal Failure: Chronic, Stage III History of Present Illness 66-year-old male with a PMH of HTN, A. fib on Coumadin, CHF (Echo 09/17/13 w/ EF 30-35%), PVD, h/o Left BKA, AICD, Hepatitis C, Cirrhosis, DM, Chronic Back Pain , CKD, and Tobacco Abuse who presented to the emergency department with complaint of an acute onset of substernal chest pain. Additional Remarks Patient seen, alert, sitting on the bed, no chest pain, mild SOB. Review of Systems General Constitutional: Fatigue Respiratory Respiratory Remarks Denies SOB Cardiovascular Cardiac Remarks Denies CP Gastrointestinal GI Remarks denies Abdominal pain Genitourinary Remarks denies dysuria Objective Data Data 07/05/17 07/06/17 19:00 07:00 Intake Total 250 ml Balance 250 ml IV Total 250 ml Vital Signs Date Time Temp Pulse Resp B/P (MAP) Pulse Ox O2 Delivery O2 Flow Rate FiO2 07/05/17 16:00 53 07/05/17 15:00 60 07/05/17 15:00 60 19 112/56 (74) 07/05/17 14:00 60 07/05/17 13:22 17 07/05/17 13:00 53 07/05/17 12:00 60 07/05/17 11:00 60 19 114/57 (76) 100 07/05/17 11:00 60 07/05/17 10:05 98 Nasal Cannula 2.00 07/05/17 10:00 60 07/05/17 09:45 121/64 (83) 07/05/17 09:00 60 07/05/17 08:00 60 07/05/17 07:15 61 19 133/61 (85) 100 07/05/17 07:00 60 07/05/17 06:11 60 07/05/17 05:48 60 07/05/17 04:05 60 07/05/17 03:50 96.7 60 18 94/52 (66) 92 07/05/17 03:09 60 07/05/17 02:24 60 07/05/17 01:06 66 07/05/17 00:28 82 07/04/17 23:48 71 147/76 07/04/17 23:15 97.6 84 16 183/89 (120) 100 07/04/17 23:00 83 07/04/17 22:30 78 07/04/17 21:45 99 07/04/17 21:10 82 07/04/17 20:15 82 07/04/17 19:49 86 07/04/17 19:38 97.4 82 17 150/76 (100) 98 07/04/17 18:00 75 07/04/17 17:00 78 -: 07/03/17 2235 07/05/17 1449 Physical Exam General Appearance: No Acute Distress Throat Throat Exam: Oral Mucosa [place] & Moist Pulmonary Resp Exam: Breath Sounds Equal, No Distress, Decreased Bases Cardiology CV Exam: Regular, Normal Sinus Rhythm Gastrointestinal/Abdomen GI Exam: Soft, Non-Tender, Non-Distended Extremeties Extremities Exam: Trace Edema (Rt. TMA and Left BKA.) Neurologic Neuro Exam: Alert, Awake, Oriented Psychiatric Psych Exam: Appropriate Responses Assessment/Plan Assessment Summary: CKD Stage III Electrolyte Assessment: Hyponatremia Problem List: (1) Chronic kidney disease (CKD) ICD Codes: N18.9 - Chronic kidney disease, unspecified Plan: Acute on chronic kidney disease. Renal function has improved and stable. Avoid fluid overload. Avoid nephrotoxic agents. Creatinine is stable at 1.6, and K was elevated, repeat K is 5.8. Give one dose of Kayexalate and calcium Gluconate. (2) NSTEMI (non-ST elevated myocardial infarction) ICD Codes: I21.4 - Non-ST elevation (NSTEMI) myocardial infarction Plan: s/p CABG AICD fired last night On amiodarone. (3) Chronic hyponatremia ICD Codes: E87.1 - Chronic hyponatremia Status: Acute Plan: stable. (4) DM (diabetes mellitus) ICD Codes: E11.9 - Type 2 diabetes mellitus without complications Status: Chronic Plan: BS AC and HS Insulin dependent maintain BS 140mg/dl to 180 mg/dl Problem Qualifiers (1) Chronic kidney disease (CKD): Qualified Codes: N18.3 - Chronic kidney disease, stage 3 (moderate) Jai Godinez MD Jul 05, 2017 16:54
[2017-07-05] MEDS ORDERED: CALCIUM GLUCONATE INJ 1 GM in DEXTROSE 5% IN WATER 100ML INJ 100 ML IV ONE ×2 (18:00)
[2017-07-05] MEDS ORDERED: SODIUM POLYSTYRENE SULFONATE SUSP 15 GM/60 ML CUP PO ONE (18:00)
[2017-07-05] MEDS: SENNOSIDES 8.6 MG TAB PO SCH (21:00)
--- NOTE | 2017-07-05 21:17 | HHI.PR ---
Subjective Remarks Patient seen today around 2 PM. Says he is feeling well. Positive bowel movement. Reports pain is controlled. Discussed hyperkalemia with nursing. Repeat pending. Objective Vital Signs Date Time Temp Pulse Resp B/P (MAP) Pulse Ox O2 Delivery O2 Flow Rate FiO2 07/05/17 19:45 99 21 07/05/17 18:00 60 07/05/17 17:40 18 07/05/17 17:00 60 07/05/17 16:00 53 07/05/17 15:00 60 07/05/17 15:00 60 19 112/56 (74) 07/05/17 14:00 60 07/05/17 13:00 53 07/05/17 12:00 60 07/05/17 11:00 60 19 114/57 (76) 100 07/05/17 11:00 60 07/05/17 10:05 98 Nasal Cannula 2.00 07/05/17 10:00 60 07/05/17 09:45 121/64 (83) 07/05/17 09:00 60 07/05/17 08:00 60 07/05/17 07:15 61 19 133/61 (85) 100 07/05/17 07:00 60 07/05/17 06:11 60 07/05/17 05:48 60 07/05/17 04:05 60 07/05/17 03:50 96.7 60 18 94/52 (66) 92 07/05/17 03:09 60 07/05/17 02:24 60 07/05/17 01:06 66 07/05/17 00:28 82 07/04/17 23:48 71 147/76 07/04/17 23:15 97.6 84 16 183/89 (120) 100 07/04/17 23:00 83 07/04/17 22:30 78 07/04/17 21:45 99 I/O 07/04/17 07/04/17 07/04/17 07/05/17 07/05/17 07/05/17 07:00 15:00 23:00 07:00 15:00 23:00 Intake Total 780 ml 630 ml 355 ml 250 ml 1020 ml Output Total 1185 ml 835 ml 390 ml Balance -405 ml -205 ml -35 ml 250 ml 1020 ml Intake Oral 480 ml 480 ml 355 ml 1020 ml IV Total 300 ml 150 ml 250 ml Output Urine Total 825 ml 675 ml 350 ml Chest Tube Drainage Total 360 ml 160 ml 40 ml # Voids 2 # Bowel Movements 0 1 1 Result Diagram: 07/03/175 07/05/17 1449 Objective Remarks GENERAL: Sitting up in bed. Appears comfortable. Alert and oriented 3. SKIN: Warm and dry. HEAD: Normocephalic. EYES: No scleral icterus. No injection or drainage. NECK: Supple, trachea midline. No JVD. CARDIOVASCULAR: Regular rate and rhythm without murmurs, gallops, or rubs. RESPIRATORY: Breath sounds equal bilaterally. No accessory muscle use. GASTROINTESTINAL: Abdomen soft, non-tender, nondistended. MUSCULOSKELETAL: No cyanosis, or edema. Left-sided below the knee amputation.mottled ecchymosis as yesterday. Small subcentimeter chronic wounds on foot without signs of infection. BACK: Nontender without obvious deformity. No CVA tenderness. A/P Assessment and Plan 66 years old man with //NSTEMI/Severe CAD He had a heart catheterization done on 06/28 showing severe CAD with severe 95 % prox stenosis of a large LAD. s/p CABG on 07/[address] Dumont . //CHF: Chronic. Systolic. Echo 09/07/13 w/ EF 30-35%, s/p AICD No evidence of fluid overload. BNP mildly elevated @230, CXR w/ no acute findings Continue current regimen. //Hyperkalemia. = Potassium found to be 6., Repeat 5.8. Calcium gluconate, takes a ordered by nephrology. Appreciate assistance. Recheck tomorrow. //Constipation. = Resolved after laxatives. Continue to monitor //Postoperative. Leukocytosis: = 07/04 Leukocytosis 21.5 on 07/02. Down to 15.. Follow-up labs tomorrow = No signs of infection. Follow-up CBC tomorrow. //A-fib: Chronic. //Supra Therapeutic INR on admission (6.0) resolved. Continue home Digoxin/Metoprolol. INR supra therapeutic, Hold Coumadin. == Per surgery notes, can be restarted after chest tube iss removed. // Chronic Pain syndrome: Status post left BKA continue home Morphine PO [employer] Consulted pending report. //DM: Sliding scale w/ Accu-Cheks, continue home Insulin = 07/05. Still with hyperglycemia, glucose in the 200s // Tobacco Abuse: Ativan prn, no NicoDerm to avoid vasoconstriction. //Pruritic rash improved on betamethasone cream. // DVT Prophylaxis: Heparin Discharge Planning Once medically clear patient may need to go to [facility] due to the complexity of his medical management and multiple comorbidities. Hamzah Mireles MD Jul 05, 2017 21:17
[2017-07-05] MEDS: ATORVASTATIN 80 MG TAB PO SCH (22:29)
[2017-07-05] MEDS: INSULIN DETEMIR 100 UNITS/ML VIAL SQ SCH (22:31)
[2017-07-06] VITALS (18 sets, daily range): BP systolic 116–137; BP diastolic 60–93; PULSE 54–67; RESP 16–19; TEMP 97.6–98.3; O2SAT 96–100
[2017-07-06] MEDS: PANTOPRAZOLE SOD 40 MG DELAYED RELEASE TAB PO SCH (04:48)
[2017-07-06] MEDS: MORPHINE SULFATE 15 MG TAB PO PRN ×2 (04:48→11:04)
[2017-07-06 06:40] LABS: AUTOMATED NEUTROPHIL # 10.8 TH/MM3 (1.8-7.7); BASOPHIL # 0.1 TH/MM3 (0-0.2); BASOPHIL % 0.8 % (0.0-2.0); EOSINOPHIL # 0.1 TH/MM3 (0-0.4); EOSINOPHIL % 0.9 % (0.0-4.0); HEMATOCRIT 30.8 % (39.0-51.0); HEMOGLOBIN 10.3 GM/DL (13.0-17.0); LYMPH % 14.1 % (9.0-44.0); MEAN CELL VOLUME 93.3 FL (80.0-100.0); MEAN CORPUSCULAR HEMOGLOBIN 31.1 PG (27.0-34.0); MEAN CORPUSCULAR HGB CONC 33.4 % (32.0-36.0); MEAN PLATELET VOLUME 8.3 FL (7.0-11.0); MONO % 9.3 % (0.0-8.0); MONOCYTE # 1.3 TH/MM3 (0-0.9); NEUT % 74.9 % (16.0-70.0); PLATELET COUNT 219 TH/MM3 (150-450); RED CELL DISTRIBUTION WIDTH 16.1 % (11.6-17.2); WHITE BLOOD COUNT 14.4 TH/MM3 (4.0-11.0)
[2017-07-06 06:53] LABS: INTERNATIONAL NORMALIZED RATIO 1.2 RATIO
[2017-07-06 07:06] LABS: BICARBONATE 27.3 MEQ/L (21.0-32.0); CALCIUM 7.9 MG/DL (8.5-10.1); CREATININE 1.72 MG/DL (0.60-1.30)
[2017-07-06 07:21] LABS: DIGOXIN 1.3 NG/ML (0.8-2.0)
[2017-07-06] MEDS: RESP: ALBUTEROL 2.5 MG/IPRATROPIUM 0.5 MG NEB (PRN) NEB (07:43)
[2017-07-06] MEDS: INSULIN ASPART SUPPLEMENTAL SCALE SQ SCH ×2 (08:00→12:00)
[2017-07-06] MEDS: AMIODARONE 200 MG TAB PO SCH (08:54)
[2017-07-06] MEDS: CARVEDILOL 12.5 MG TAB PO SCH (08:54)
[2017-07-06] MEDS: DOCUSATE SODIUM 100 MG CAP PO SCH (08:54)
[2017-07-06] MEDS: MULTIVITAMINS/MINERALS THERAPEUTIC TAB PO SCH (08:54)
[2017-07-06] MEDS: SODIUM CHLORIDE 0.9% FLUSH 10 ML FLUSH IV FLUSH SCH (08:55)
[2017-07-06] MEDS: ASPIRIN 81 MG CHEW TAB PO SCH (08:55)
[2017-07-06] MEDS: INSULIN DETEMIR 100 UNITS/ML VIAL SQ SCH (08:59)
[2017-07-06] MEDS: MAGNESIUM HYDROXIDE SUSP 30 ML CUP PO SCH (08:59)
[2017-07-06] MEDS: POLYETHYLENE GLYCOL 17 GM PKG PO SCH (08:59)
[2017-07-06] MEDS: DIGOXIN 0.125 MG TAB PO SCH (09:00)
[2017-07-06] MEDS: COLLAGENASE OINT 30 GM TUBE TOPICAL SCH (09:05)
[2017-07-06] MEDS: LACTIC ACID (AMMONIUM LACTATE) 12% LOTION 225 GM BTL TOPICAL SCH (09:05)
[2017-07-06] MEDS: BETAMETHASONE DIPROPIONATE 0.05% CREAM 15 GM TOPICAL SCH (09:05)
--- NOTE | 2017-07-06 11:08 | HHI.NPPN ---
Subjective General Problems: Anemia, Heart Disease, Hypertension Renal Failure: Chronic, Stage III History of Present Illness 66-year-old male with a PMH of HTN, A. fib on Coumadin, CHF (Echo 09/17/13 w/ EF 30-35%), PVD, h/o Left BKA, AICD, Hepatitis C, Cirrhosis, DM, Chronic Back Pain , CKD, and Tobacco Abuse who presented to the emergency department with complaint of an acute onset of substernal chest pain. Additional Remarks Patient seen, alert, sitting on the bed, no chest pain. In good spirits. (Corinne Vizcaino) Review of Systems General Constitutional: Fatigue (Corinne Vizcaino) Respiratory Respiratory Remarks Denies SOB (Corinne Vizcaino) Cardiovascular Cardiac Remarks Denies CP (Corinne Vizcaino) Gastrointestinal GI Remarks denies Abdominal pain (Corinne Vizcaino) Genitourinary Remarks denies dysuria (Corinne Vizcaino) Objective Data Data Vital Signs Date Time Temp Pulse Resp B/P (MAP) Pulse Ox O2 Delivery O2 Flow Rate FiO2 07/06/17 10:00 67 07/06/17 09:00 63 07/06/17 08:00 56 07/06/17 07:43 96 21 07/06/17 07:32 98.1 56 16 137/93 (108) 99 07/06/17 07:00 55 07/06/17 06:08 59 07/06/17 05:15 62 07/06/17 04:07 60 07/06/17 03:58 62 07/06/17 03:58 98.3 64 19 123/60 (81) 100 07/06/17 02:05 64 07/06/17 01:04 60 07/06/17 00:20 64 07/05/17 23:30 97.6 71 17 151/70 (97) 98 07/05/17 23:00 50 07/05/17 22:00 62 07/05/17 21:00 62 07/05/17 20:00 60 07/05/17 19:45 99 21 07/05/17 19:30 97.9 63 18 106/55 (72) 98 07/05/17 19:30 53 07/05/17 18:00 60 07/05/17 17:40 18 07/05/17 17:00 60 07/05/17 16:00 53 07/05/17 15:00 60 07/05/17 15:00 60 19 112/56 (74) 07/05/17 14:00 60 07/05/17 13:00 53 07/05/17 12:00 60 (Corinne Vizcaino) -: 07/06/17 0440 07/06/17 0440 Physical Exam General Appearance: No Acute Distress (Corinne Vizcaino) Throat Throat Exam: Oral Mucosa [place] & Moist (Corinne Vizcaino) Pulmonary Resp Exam: Breath Sounds Equal, No Distress, Decreased Bases (Corinne Vizcaino) Cardiology CV Exam: Regular, Normal Sinus Rhythm (Corinne Vizcaino) Gastrointestinal/Abdomen GI Exam: Soft, Non-Tender, Non-Distended (Corinne Vizcaino) Extremeties Extremities Exam: Trace Edema (Rt. TMA and Left BKA.) Extremeties Remarks right leg amputation (Corinne Vizcaino) Neurologic Neuro Exam: Alert, Awake, Oriented (Corinne Vizcaino) Psychiatric Psych Exam: Appropriate Responses (Corinne Vizcaino) Assessment/Plan Assessment Summary: CKD Stage III Electrolyte Assessment: Hyponatremia Problem List: (1) Chronic kidney disease (CKD) ICD Codes: N18.9 - Chronic kidney disease, unspecified Plan: Acute on chronic kidney disease. Renal function has improved and stable. Avoid fluid overload. Avoid nephrotoxic agents. Creatinine is stable at 1.7, and K normal today at 4.6. Kayexalate and calcium gluconate given yesterday Patient is cleared for Rehab from nephrology stand point. Continue to monitor BMP Can follow up in office outpatient (2) NSTEMI (non-ST elevated myocardial infarction) ICD Codes: I21.4 - Non-ST elevation (NSTEMI) myocardial infarction Plan: s/p CABG (3) Chronic hyponatremia ICD Codes: E87.1 - Chronic hyponatremia Status: Acute Plan: stable. (4) DM (diabetes mellitus) ICD Codes: E11.9 - Type 2 diabetes mellitus without complications Status: Chronic Plan: BS AC and HS Insulin dependent maintain BS 140mg/dl to 180 mg/dl (Corinne Vizcaino) Problem List: (1) Chronic kidney disease (CKD) ICD Codes: N18.9 - Chronic kidney disease, unspecified Plan: Acute on chronic kidney disease. Renal function has improved and stable. Avoid fluid overload. Avoid nephrotoxic agents. Creatinine is stable at 1.7, and K normal today at 4.6. Kayexalate and calcium gluconate given yesterday Patient is cleared for Rehab from nephrology stand point. Continue to monitor BMP Can follow up in office as outpatient. Patient seen and examined, agree with above. (2) NSTEMI (non-ST elevated myocardial infarction) ICD Codes: I21.4 - Non-ST elevation (NSTEMI) myocardial infarction Plan: s/p CABG (3) Chronic hyponatremia ICD Codes: E87.1 - Chronic hyponatremia Status: Acute Plan: stable. (4) DM (diabetes mellitus) ICD Codes: E11.9 - Type 2 diabetes mellitus without complications Status: Chronic Plan: BS AC and HS Insulin dependent maintain BS 140mg/dl to 180 mg/dl (Jai Godinez MD) Problem Qualifiers (1) Chronic kidney disease (CKD): Qualified Codes: N18.3 - Chronic kidney disease, stage 3 (moderate) Corinne Vizcaino Jul 06, 2017 11:08 Jai Godinez MD Jul 06, 2017 12:10
[2017-07-06] MEDS ORDERED: LEVEMIR SQ (13:48)
[2017-07-06] MEDS ORDERED: THERM PO (13:48)
[2017-07-06] MEDS ORDERED: AMIO200T PO (13:48)
[2017-07-06] MEDS ORDERED: DOCU1CAP39 PO (13:48)
[2017-07-06] MEDS ORDERED: POLY17S PO (13:48)
[2017-07-06] MEDS ORDERED: COLL30T TOPICAL (13:48)
[2017-07-06] MEDS ORDERED: ASPI81 PO (13:48)
[2017-07-06] MEDS ORDERED: Lactic Acid 12% Lotion TOPICAL (13:48)
[2017-07-06] MEDS ORDERED: CARV12.5 PO (13:48)
[2017-07-06] MEDS ORDERED: NOVOLOGP2 SQ (13:48)
[2017-07-06] MEDS ORDERED: ENOX100P SQ (13:51)
--- NOTE | 2017-07-06 14:00 | PD.CAR.PN ---
CVT Progress Note Subjective/Hospital Course: 66 year-old male, patient of Dr. Del Toro, Dr. Di Dutton, presented to the emergency room with substernal chest pain on 06/23/2017, also with some shortness of breath, was noted to be severely hypertensive with a systolic blood pressure close to 200. He has an extensive cardiac background. 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 Troponin was 1.98 pounds. The patient underwent cardiac cath by for [id number] LA, showed an ejection fraction of 25%, 50% left ostial lesion, 95% proximal LAD. The diagonal had an 80% stenosis in the proximal lesion, the circ was 40%. The OM 90%. The RCA 50%. He also underwent 2-D echocardiogram, that showed an EF of 45%. He had some mild right atrial dilation, mild mitral valve regurgitation, tricuspid regurgitation. We were consulted to evaluate for coronary artery bypass grafting. PMH: chronic atrial fibrillation on Coumadin, hypertension, congestive heart failure with prior EF of 30-35, EF per cath was 25%. He has an ICD placement on the left upper chest, diabetes mellitus, chronic back pain. HX femoral aortic aneurysm, hepatitis C, liver cirrhosis, chronic back pain, Peripheral arterial disease. PAST SURGICAL HISTORY: ICD placement, Left [id number] amputation, Amputation of the right forefoot, Right carotid endarterectomy, Liver biopsy, Abdominal aortic aneurysm repair. 06/29 pt spoke to his brother, now is agreeable to proceed with surgery , which is scheduled for Tuesday carotid US : unremarkable vein mapping reviewed 06/30 pain free, on schedule for surgery in am 07/02/17 No complaints, doing well 07/03/17 Short run of wide complex tachy last night which resolved on its own. copious chest tube drainage - serous. No complaints today. 07/04/17 remains on amiodarone gtt/ will change to po at 2100 HR more controlled / BB increased diuresing well, chest tube drained 360cc/ 12hr tolerating PT/OT eval for rehab at discharge creatinine improving / Nephro following will need to resume coumadin when chest tube out 07/05 chest tube removed without difficulty not feeling well today pale , feels weak and a little short of breath labs pending / CXR pending intermittent v paced, no more pvc's noted BP 130/60 Dr rodriguez following heart rhythm addendum lab resulted creatinine 1.66 K+ 6.1 stat redraw/ notify nephrology immediately for treatment 07/06 K+ treated with Kayexalate and calcium chloride now 4.6/ discussed with nephro/ ok to dc with followup visit spoke with cardiology / ok to dc on amiodarone , coreg and dig 0.125 daily on coumadin , no t therapeutic, will add daily lovenox and dc when INR > 2.0 ok to dc to [place] in pt rehab remains in afib/ intermittent v paced Objective: GENERAL: A&O x 3 SKIN: Warm and dry. 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 EYES: No scleral icterus. No injection or drainage. NECK: Supple, trachea midline. No JVD or lymphadenopathy. CARDIOVASCULAR: irregular rate and rhythm without murmurs, gallops, or rubs. RESPIRATORY: diminished in the bases, Breath sounds equal bilaterally. No accessory muscle use. GASTROINTESTINAL: Abdomen soft, non-tender, nondistended. MUSCULOSKELETAL: No cyanosis, or edema. left BKA, dressing in place right heel BACK: Nontender without obvious deformity. No CVA tenderness. Vital Signs Date Time Temp Pulse Resp B/P (MAP) Pulse Ox O2 Delivery O2 Flow Rate FiO2 07/06/17 13:00 60 07/06/17 12:00 55 07/06/17 11:36 97.6 59 18 116/61 (79) 100 07/06/17 11:00 59 07/06/17 10:00 67 07/06/17 09:00 63 07/06/17 08:00 56 07/06/17 07:43 96 21 07/06/17 07:32 98.1 56 16 137/93 (108) 99 07/06/17 07:00 55 07/06/17 06:08 59 07/06/17 05:15 62 07/06/17 04:07 60 07/06/17 03:58 62 07/06/17 03:58 98.3 64 19 123/60 (81) 100 07/06/17 02:05 64 07/06/17 01:04 60 07/06/17 00:20 64 07/05/17 23:30 97.6 71 17 151/70 (97) 98 07/05/17 23:00 50 07/05/17 22:00 62 07/05/17 21:00 62 07/05/17 20:00 60 07/05/17 19:45 99 21 07/05/17 19:30 97.9 63 18 106/55 (72) 98 07/05/17 19:30 53 07/05/17 18:00 60 07/05/17 17:40 18 07/05/17 17:00 60 07/05/17 16:00 53 07/05/17 15:00 60 07/05/17 15:00 60 19 112/56 (74) 07/05/17 14:00 60 Labs: Laboratory Tests Test 07/06/17 04:40 White Blood Count 14.4 TH/MM3 (4.0-11.0) Red Blood Count 3.30 MIL/MM3 (4.50-5.90) Hemoglobin 10.3 GM/DL (13.0-17.0) Hematocrit 30.8 % (39.0-51.0) Mean Corpuscular Volume 93.3 FL (80.0-100.0) Mean Corpuscular Hemoglobin 31.1 PG (27.0-34.0) Mean Corpuscular Hemoglobin Concent 33.4 % (32.0-36.0) Red Cell Distribution Width 16.1 % (11.6-17.2) Platelet Count 219 TH/MM3 (150-450) Mean Platelet Volume 8.3 FL (7.0-11.0) Neutrophils (%) (Auto) 74.9 % (16.0-70.0) Lymphocytes (%) (Auto) 14.1 % (9.0-44.0) Monocytes (%) (Auto) 9.3 % (0.0-8.0) Eosinophils (%) (Auto) 0.9 % (0.0-4.0) Basophils (%) (Auto) 0.8 % (0.0-2.0) Neutrophils # (Auto) 10.8 TH/MM3 (1.8-7.7) Lymphocytes # (Auto) 2.0 TH/MM3 (1.0-4.8) Monocytes # (Auto) 1.3 TH/MM3 (0-0.9) Eosinophils # (Auto) 0.1 TH/MM3 (0-0.4) Basophils # (Auto) 0.1 TH/MM3 (0-0.2) CBC Comment DIFF FINAL Differential Comment Prothrombin Time 12.0 SEC (9.8-11.6) Prothromb Time International Ratio 1.2 RATIO Blood Urea Nitrogen 43 MG/DL (7-18) Creatinine 1.72 MG/DL (0.60-1.30) Random Glucose 60 MG/DL (74-106) Calcium Level 7.9 MG/DL (8.5-10.1) Sodium Level 132 MEQ/L (136-145) Potassium Level 4.6 MEQ/L (3.5-5.1) Chloride Level 97 MEQ/L (98-107) Carbon Dioxide Level 27.3 MEQ/L (21.0-32.0) Anion Gap 8 MEQ/L (5-15) Estimat Glomerular Filtration Rate 40 ML/MIN (>89) Digoxin Level 1.3 NG/ML (0.8-2.0) Result Diagram: 07/06/1743907/06/17439 (1) Non-ST elevation LA (NSTEMI) Plan: ASA, statin , BB amiodarone 400mg bid x 7 days / then 200mg daily OOB/ PT/OT CM to eval for rehab placement ok to dc to rehab (2) CAD (coronary artery disease) (3) Cardiomyopathy Plan: Dig level 0.6/ 1.3 continue 0.125mg daily/ discussed with Dr Rodriguez (4) Chronic atrial fibrillation Plan: Coumadin / lovenox to bridge (5) Abdominal aneurysm (6) Status post below knee amputation of left lower extremity Plan: PT/OT (7) CKD (chronic kidney disease) stage 3, GFR 30-59 ml/min Plan: creatinine 1.59 > 1.66> 1.49 > 1.66 k+ 6.1> 4.6/ post calcium chloride and Kayexalate (8) CHF (congestive heart failure) Plan: EF 25 % , no linnea with CKD stage 111 on BB , no linnea 2/2 CKD digoxin (9) DM (diabetes mellitus) Plan: Diabetic diet , insulin SS (10) Chronic hepatitis C without mention of hepatic coma (11) Ulcer of right heel Plan: wound care following / podiatry following (12) A-fib Plan: start coumadin (13) S/P CABG x 3 Plan: statin , BB , amiodarone ASA OOB with PT check labs check CXR Problem Qualifiers (1) CAD (coronary artery disease): Qualified Codes: I25.119 - Atherosclerotic heart disease of [place] coronary artery with unspecified angina pectoris (2) A-fib: Qualified Codes: I48.0 - Paroxysmal atrial fibrillation Nika Egan Jul 06, 2017 14:00
[2017-07-06] MEDS ORDERED: NOVOLOGSS SQ (14:15)
[2017-07-06] MEDS ORDERED: ENOXAPARIN SODIUM 100 MG/ML SYRINGE SQ ONE (15:00)
[2017-07-06] MEDS: WARFARIN SOD 5 MG TAB PO SCH (15:04)
--- NOTE | 2017-07-06 16:10 | PD.CARD.PN ---
Subjective Subjective Remarks No CP, mild SOB relieved with resp tx, no recurrent VT Objective Medications Current Medications Medications (Trade) Dose Ordered Sig/Kelly Route Start Time Stop Time Status Last Admin (NS Flush) 2 ml UNSCH PRN IV FLUSH 06/23/17 11:15 (NS Flush) 2 ml BID IV FLUSH 06/23/17 21:00 07/06/17 08:55 (Tylenol) 650 mg Q6H PRN PO 06/23/17 11:15 (Narcan Inj) 0.4 mg UNSCH PRN IV PUSH 06/23/17 11:15 (Lipitor) 80 mg HS PO 06/23/17 21:00 07/05/17 22:29 (Lanoxin) 0.125 mg DAILY PO 06/24/17 09:00 07/06/17 09:00 (Lac-Hydrin 12% Lotion) 1 applic BID TOPICAL 06/27/17 21:00 07/06/17 09:05 (Santyl Oint) 1 applic DAILY TOPICAL 06/29/17 09:00 07/06/17 09:05 (Diprosone 0.05% Cream) 1 applic BID TOPICAL 06/30/17 16:15 07/06/17 09:05 (Aspirin Chew) 81 mg DAILY PO 07/02/17 09:00 07/06/17 08:55 (Protonix) 40 mg DAILY@06 PO 07/02/17 06:00 07/06/17 04:48 (Tylenol) 650 mg Q4H PRN PO 07/01/17 18:45 (Zofran Inj) 4 mg Q6H PRN IV PUSH 07/01/17 18:45 07/04/17 20:51 (Duoneb Neb) 1 ampule Q2HR NEB PRN NEB 07/01/17 18:45 07/06/17 07:43 (Colace) 100 mg BID PO 07/02/17 21:00 07/06/17 08:54 (Theragran M Tab) 1 tab DAILY PO 07/03/17 09:00 07/06/17 08:54 (Milk Of Magnesia Liq) 30 ml DAILY PO 07/02/17 11:00 07/05/17 09:07 (Dulcolax Supp) 10 mg UNSCH PRN RECTAL 07/02/17 09:45 (Miralax) 17 gm DAILY PO 07/03/17 09:00 07/05/17 09:05 (Senokot) 8.6 mg HS PO 07/02/17 21:00 07/04/17 22:25 (Fleets Enema (Adult)) 118 ml UNSCH PRN RECTAL 07/02/17 09:45 (D50w (Vial) Inj) 50 ml UNSCH PRN IV PUSH 07/02/17 09:45 (Glucagon Inj) 1 mg UNSCH PRN OTHER 07/02/17 09:45 (Apresoline Inj) 10 mg Q30M PRN IV PUSH 07/02/17 09:45 (Msir) 15 mg Q6H PRN PO 07/02/17 11:00 07/06/17 11:04 (NovoLOG SUPPLEMENTAL SCALE) 1 ACHS SQ 07/04/17 12:00 07/06/17 12:00 (Coreg) 12.5 mg BID PO 07/04/17 21:00 07/06/17 08:54 (Cordarone) 400 mg Q12HR PO 07/05/17 09:00 07/06/17 08:54 (Coumadin) 5 mg DAILY@1600 PO 07/05/17 16:00 07/06/17 15:04 (Levemir Inj) 5 units Q12HR SQ 07/05/17 21:15 07/06/17 08:59 Vital Signs / I&O Vital Signs Date Time Temp Pulse Resp B/P (MAP) Pulse Ox O2 Delivery O2 Flow Rate FiO2 07/06/17 14:00 54 07/06/17 13:00 60 07/06/17 12:00 55 07/06/17 11:36 97.6 59 18 116/61 (79) 100 07/06/17 11:00 59 07/06/17 10:00 67 07/06/17 09:00 63 07/06/17 08:00 56 07/06/17 07:43 96 21 07/06/17 07:32 98.1 56 16 137/93 (108) 99 07/06/17 07:00 55 07/06/17 06:08 59 07/06/17 05:15 62 07/06/17 04:07 60 07/06/17 03:58 62 07/06/17 03:58 98.3 64 19 123/60 (81) 100 07/06/17 02:05 64 07/06/17 01:04 60 07/06/17 00:20 64 07/05/17 23:30 97.6 71 17 151/70 (97) 98 07/05/17 23:00 50 07/05/17 22:00 62 07/05/17 21:00 62 07/05/17 20:00 60 07/05/17 19:45 99 21 07/05/17 19:30 97.9 63 18 106/55 (72) 98 07/05/17 19:30 53 07/05/17 18:00 60 07/05/17 17:40 18 07/05/17 17:00 60 I/O 07/05/17 07/05/17 07/05/17 07/06/17 07/06/17 07/06/17 07:00 15:00 23:00 07:00 15:00 23:00 Intake Total 355 ml 250 ml 1130 ml 480 ml Output Total 390 ml 375 ml Balance -35 ml 250 ml 1130 ml 105 ml Intake Oral 355 ml 1020 ml 480 ml IV Total 250 ml 110 ml Output Urine Total 350 ml 375 ml Chest Tube Drainage Total 40 ml # Voids 2 # Bowel Movements 1 1 0 Physical Exam GENERAL: In NAD SKIN: Warm and dry. HEAD: Normocephalic. EYES: No scleral icterus. No injection or drainage. NECK: Supple, trachea midline. No JVD or lymphadenopathy. CARDIOVASCULAR: Irregular rate and rhythm, without murmurs, gallops, or rubs. RESPIRATORY: Breath sounds equal bilaterally. No accessory muscle use. GASTROINTESTINAL: Abdomen soft, non-tender, nondistended. MUSCULOSKELETAL: No cyanosis, mild LE edema. S/p bilat LE amputations Laboratory Laboratory Tests Test 07/06/17 04:40 White Blood Count 14.4 TH/MM3 Red Blood Count 3.30 MIL/MM3 Hemoglobin 10.3 GM/DL Hematocrit 30.8 % Mean Corpuscular Volume 93.3 FL Mean Corpuscular Hemoglobin 31.1 PG Mean Corpuscular Hemoglobin Concent 33.4 % Red Cell Distribution Width 16.1 % Platelet Count 219 TH/MM3 Mean Platelet Volume 8.3 FL Neutrophils (%) (Auto) 74.9 % Lymphocytes (%) (Auto) 14.1 % Monocytes (%) (Auto) 9.3 % Eosinophils (%) (Auto) 0.9 % Basophils (%) (Auto) 0.8 % Neutrophils # (Auto) 10.8 TH/MM3 Lymphocytes # (Auto) 2.0 TH/MM3 Monocytes # (Auto) 1.3 TH/MM3 Eosinophils # (Auto) 0.1 TH/MM3 Basophils # (Auto) 0.1 TH/MM3 CBC Comment DIFF FINAL Differential Comment Prothrombin Time 12.0 SEC Prothromb Time International Ratio 1.2 RATIO Blood Urea Nitrogen 43 MG/DL Creatinine 1.72 MG/DL Random Glucose 60 MG/DL Calcium Level 7.9 MG/DL Sodium Level 132 MEQ/L Potassium Level 4.6 MEQ/L Chloride Level 97 MEQ/L Carbon Dioxide Level 27.3 MEQ/L Anion Gap 8 MEQ/L Estimat Glomerular Filtration Rate 40 ML/MIN Digoxin Level 1.3 NG/ML Assessment and Plan Problem List: (1) Non-ST elevation VA (NSTEMI) ICD Codes: I21.4 - Non-ST elevation (NSTEMI) myocardial infarction Status: Acute (2) CAD (coronary artery disease) ICD Codes: I25.10 - Atherosclerotic heart disease of [place] coronary artery without angina pectoris Status: Chronic (3) Cardiomyopathy ICD Codes: I42.9 - Cardiomyopathy, unspecified (4) Chronic atrial fibrillation ICD Codes: I48.2 - Chronic atrial fibrillation Status: Chronic (5) Abdominal aneurysm ICD Codes: I71.4 - Abdominal aortic aneurysm Status: Acute (6) Status post below knee amputation of left lower extremity ICD Codes: Z89.512 - Acquired absence of left leg below knee Status: Acute (7) CKD (chronic kidney disease) stage 3, GFR 30-59 ml/min ICD Codes: N18.3 - Chronic kidney disease, stage 3 (moderate) Status: Chronic (8) CHF (congestive heart failure) ICD Codes: I50.9 - Heart failure, unspecified Status: Chronic (9) DM (diabetes mellitus) ICD Codes: E11.9 - Type 2 diabetes mellitus without complications Status: Chronic (10) Chronic hepatitis C without mention of hepatic coma ICD Codes: B18.2 - Chronic hepatitis C virus infection Status: Acute (11) Ulcer of right heel ICD Codes: L97.419 - Non-pressure chronic ulcer of right heel and midfoot with unspecified severity (12) A-fib ICD Codes: I48.91 - Unspecified atrial fibrillation Status: Chronic (13) S/P CABG x 3 ICD Codes: Z95.1 - Presence of aortocoronary bypass graft Assessment and Plan Remains stable from cardiac standpoint. No recurrent VT/VF, continue amio loading for 7 days, then 200 mg daily. Continue beta giovani. No angina or CHF. Aggressive risk factor modification. Increase activity, PT. Counseled to quit smoking. Trf to rehab as planned. F/u w Dr. Del Toro after rehab completed. Problem Qualifiers (1) CAD (coronary artery disease): Qualified Codes: I25.119 - Atherosclerotic heart disease of [place] coronary artery with unspecified angina pectoris (2) A-fib: Qualified Codes: I48.0 - Paroxysmal atrial fibrillation Nancy Rodriguez MD Jul 06, 2017 16:10
--- NOTE | 2017-07-06 21:46 | HHI.PR ---
Subjective Remarks patient seen this morning. Says he is feeling well. Denies any chest pain or shortness of breath. Says he feels ready to go to [place]. Objective Vital Signs Date Time Temp Pulse Resp B/P (MAP) Pulse Ox O2 Delivery O2 Flow Rate FiO2 07/06/17 14:00 54 07/06/17 13:00 60 07/06/17 12:00 55 07/06/17 11:36 97.6 59 18 116/61 (79) 100 07/06/17 11:00 59 07/06/17 10:00 67 07/06/17 09:00 63 07/06/17 08:00 56 07/06/17 07:43 96 21 07/06/17 07:32 98.1 56 16 137/93 (108) 99 07/06/17 07:00 55 07/06/17 06:08 59 07/06/17 05:15 62 07/06/17 04:07 60 07/06/17 03:58 62 07/06/17 03:58 98.3 64 19 123/60 (81) 100 07/06/17 02:05 64 07/06/17 01:04 60 07/06/17 00:20 64 07/05/17 23:30 97.6 71 17 151/70 (97) 98 07/05/17 23:00 50 07/05/17 22:00 62 I/O 07/05/17 07/05/17 07/05/17 07/06/17 07/06/17 07/06/17 07:00 15:00 23:00 07:00 15:00 23:00 Intake Total 355 ml 250 ml 1130 ml 480 ml Output Total 390 ml 375 ml Balance -35 ml 250 ml 1130 ml 105 ml Intake Oral 355 ml 1020 ml 480 ml IV Total 250 ml 110 ml Output Urine Total 350 ml 375 ml Chest Tube Drainage Total 40 ml # Voids 2 # Bowel Movements 1 1 0 Result Diagram: 07/06/1743907/06/17439 Objective Remarks GENERAL: Sitting up in bed. Appears comfortable. Alert and oriented 3.no change on exam from yesterday. SKIN: Warm and dry. HEAD: Normocephalic. EYES: No scleral icterus. No injection or drainage. NECK: Supple, trachea midline. No JVD. CARDIOVASCULAR: Regular rate and rhythm without murmurs, gallops, or rubs. RESPIRATORY: Breath sounds equal bilaterally. No accessory muscle use. GASTROINTESTINAL: Abdomen soft, non-tender, nondistended. MUSCULOSKELETAL: No cyanosis, or edema. Left-sided below the knee amputation.mottled ecchymosis as yesterday. Small subcentimeter chronic wounds on foot without signs of infection. BACK: Nontender without obvious deformity. No CVA tenderness. A/P Assessment and Plan 66 years old man with //NSTEMI/Severe CAD He had a heart catheterization done on 06/28 showing severe CAD with severe 95 % prox stenosis of a large LAD. s/p CABG on 07/[address] Dumont . //CHF: Chronic. Systolic. Echo 09/07/13 w/ EF 30-35%, s/p AICD No evidence of fluid overload. BNP mildly elevated @230, CXR w/ no acute findings Continue current regimen. //Hyperkalemia. = Potassium found to be 6., Repeat 5.8. Calcium gluconate, takes a ordered by nephrology. Appreciate assistance. Recheck tomorrow. =07/06. 4.6 today. Will need to continued to monitor at [place]. //Constipation. = Resolved after laxatives. Continue to monitor //Postoperative. Leukocytosis: = 07/04 Leukocytosis 21.5 on 07/02. Down to 15.. Follow-up labs tomorrow = No signs of infection. Follow-up CBC tomorrow. =07/06. Leukocytosis 14.4. Slightly improved. Continue to monitor at [place]. //A-fib: Chronic. //Supra Therapeutic INR on admission (6.0) resolved. Continue home Digoxin/Metoprolol. INR supra therapeutic, Hold Coumadin. == Per surgery notes, can be restarted after chest tube is removed. =07/06. Warfarin to be restarted as per CT surgery. // Chronic Pain syndrome: Status post left BKA continue home Morphine PO [facility] Consulted. Continue wound care. //DM: Sliding scale w/ Accu-Cheks, continue home Insulin = 07/05. Still with hyperglycemia, glucose in the 200s =. Some hypoglycemia this morning 60s. Asymptomatic. Hyperglycemia this afternoon. Expect to level out on current regimen. // Tobacco Abuse: Ativan prn, no NicoDerm to avoid vasoconstriction. //Pruritic rash improved on betamethasone cream. // DVT Prophylaxis: Heparin Discharge Planning discharge to [facility] due to the complexity of his medical management and multiple comorbidities. Hamzah Mireles MD Jul 06, 2017 21:46
--- NOTE | 2017-07-06 21:55 | HHI.DS ---
Discharge Summary Admission Date Jun 23, 2017 at 10:16 Discharge Date: Jul 06, 2017 Admitting Diagnosis Non-ST elevation OR (1) Non-ST elevation OR (NSTEMI) ICD Code: I21.4 - Non-ST elevation (NSTEMI) myocardial infarction Status: Acute Procedures cardiac catheterization with stenting.please see report CABG. Please see report. Brief History - From Admission 66-year-old male with a PMH of HTN, A. fib on Coumadin, CHF (Echo 09/17/13 w/ EF 30-35%), PVD, h/o Left BKA, AICD, Hepatitis C, Cirrhosis, DM, Chronic Back Pain and Tobacco Abuse who presented to the emergency department with complaint of an acute onset of substernal chest pain without any radiation rated over 8 intensity and described as pressure-like, associated with diaphoresis. States, this was preceded by elevated blood pressure this morning which patient took twice his medicine. On arrival Trop 1.98. EKG w/ no acute ischemia. BNP 230. INR 9.5. CXR w/ no acute findings. Cardiology was consulted. He has no GI bleed and denies any febrile episode. CBC/BMP: 07/06/17 0440 07/06/17 0440 Significant Findings Laboratory Tests Test 07/03/17 22:35 07/05/17 12:52 07/05/17 13:05 07/05/17 14:49 White Blood Count 15.2 TH/MM3 (4.0-11.0) Red Blood Count 3.03 MIL/MM3 (4.50-5.90) Hemoglobin 9.4 GM/DL (13.0-17.0) Hematocrit 27.5 % (39.0-51.0) Neutrophils (%) (Auto) 79.9 % (16.0-70.0) Neutrophils # (Auto) 12.1 TH/MM3 (1.8-7.7) Monocytes # (Auto) 1.2 TH/MM3 (0-0.9) Blood Urea Nitrogen 33 MG/DL (7-18) 37 MG/DL (7-18) Creatinine 1.49 MG/DL (0.60-1.30) 1.66 MG/DL (0.60-1.30) Calcium Level 7.9 MG/DL (8.5-10.1) 8.4 MG/DL (8.5-10.1) Sodium Level 135 MEQ/L (136-145) 129 MEQ/L (136-145) Estimat Glomerular Filtration Rate 47 ML/MIN (>89) 42 ML/MIN (>89) Prothrombin Time 12.3 SEC (9.8-11.6) Random Glucose 244 MG/DL (74-106) Potassium Level 6.1 MEQ/L (3.5-5.1) 5.8 MEQ/L (3.5-5.1) Chloride Level 96 MEQ/L (98-107) Test 07/06/17 04:40 White Blood Count 14.4 TH/MM3 (4.0-11.0) Red Blood Count 3.30 MIL/MM3 (4.50-5.90) Hemoglobin 10.3 GM/DL (13.0-17.0) Hematocrit 30.8 % (39.0-51.0) Neutrophils (%) (Auto) 74.9 % (16.0-70.0) Monocytes (%) (Auto) 9.3 % (0.0-8.0) Neutrophils # (Auto) 10.8 TH/MM3 (1.8-7.7) Monocytes # (Auto) 1.3 TH/MM3 (0-0.9) Prothrombin Time 12.0 SEC (9.8-11.6) Blood Urea Nitrogen 43 MG/DL (7-18) Creatinine 1.72 MG/DL (0.60-1.30) Random Glucose 60 MG/DL (74-106) Calcium Level 7.9 MG/DL (8.5-10.1) Sodium Level 132 MEQ/L (136-145) Chloride Level 97 MEQ/L (98-107) Estimat Glomerular Filtration Rate 40 ML/MIN (>89) Imaging Last Impressions Chest X-Ray 07/05/17 1200 Signed Impressions: Service Date/Time: Wednesday, July 05, 2017 11:54 - CONCLUSION: Cardiomegaly with bibasilar airspace disease and probable small pleural effusions. Farhat Antonio MD Lower Extremity Ultrasound 06/28/17 0000 Signed Impressions: Service Date/Time: Wednesday, June 28, 2017 14:28 - CONCLUSION: 1. Lower extremity venous mapping, as above. Lauro Thompson MD Carotid Artery Ultrasound 06/28/17 0000 Signed Impressions: Service Date/Time: Wednesday, June 28, 2017 13:58 - CONCLUSION: 1. Calcified plaque near both carotid bifurcations but without hemodynamically significant stenosis. Vertebral artery flow antegrade. Stewart Cordoba MD PE at Discharge GENERAL: in NAD SKIN: thigh area with some excoriation from itching + macular rash. CARDIOVASCULAR: Regular rate and rhythm without murmurs, gallops, or rubs. Wound VAC on chest in place. Chest tube in place RESPIRATORY: Breath sounds equal bilaterally. No accessory muscle use. GASTROINTESTINAL: Abdomen soft, non-tender, nondistended. MUSCULOSKELETAL:left BKA with right foot amputation Hospital Course Patient found to have EKG with anteroseptal myocardial infarction, troponin above 40.0. Patient underwent cardiac catheterization on 06/28 which showed CAD with severe 95% proximal stenosis of LAD. EF 3035 percent, and AICD was placed. Patient underwent CABG on 07/[address] Dumont. Postoperative course was completed by constipation which resolved with laxatives, hyperkalemia with potassium up to 6 on 07/05, which resolved with Kayexalate. Also postoperative leukocytosis up to 21.5, improving to 14.4 on day of discharge. No signs of infection, and this will need to continue to monitor. Warfarin was held for patient's chronic A. fib, however was restarted as per CT surgery . Patient is maintained on diabetic regimen, and insulin was adjusted for glycemic control. For problem-based summary from most recent progress note, please see below. 66 years old man with //NSTEMI/Severe CAD He had a heart catheterization done on 06/28 showing severe CAD with severe 95 % prox stenosis of a large LAD. s/p CABG on 07/[address] Dumont . //CHF: Chronic. Systolic. Echo 09/07/13 w/ EF 30-35%, s/p AICD No evidence of fluid overload. BNP mildly elevated @230, CXR w/ no acute findings Continue current regimen. //Hyperkalemia. = Potassium found to be 6., Repeat 5.8. Calcium gluconate, takes a ordered by nephrology. Appreciate assistance. Recheck tomorrow. =07/06. 4.6 today. Will need to continued to monitor at [facility]. //Constipation. = Resolved after laxatives. Continue to monitor //Postoperative. Leukocytosis: = 07/04 Leukocytosis 21.5 on 07/02. Down to 15.. Follow-up labs tomorrow = No signs of infection. Follow-up CBC tomorrow. =07/06. Leukocytosis 14.4. Slightly improved. Continue to monitor at [facility]. //A-fib: Chronic. //Supra Therapeutic INR on admission (6.0) resolved. Continue home Digoxin/Metoprolol. INR supra therapeutic, Hold Coumadin. == Per surgery notes, can be restarted after chest tube is removed. =07/06. Warfarin to be restarted as per CT surgery. // Chronic Pain syndrome: Status post left BKA continue home Morphine PO [facility] [employer] Consulted. Continue wound care. //DM: Sliding scale w/ Accu-Cheks, continue home Insulin = 07/05. Still with hyperglycemia, glucose in the 200s =. Some hypoglycemia this morning 60s. Asymptomatic. Hyperglycemia this afternoon. Expect to level out on current regimen. // Tobacco Abuse: Ativan prn, no NicoDerm to avoid vasoconstriction. //Pruritic rash improved on betamethasone cream. // DVT Prophylaxis: Heparin Discharge Planning discharge to [facility] due to the complexity of his medical management and multiple comorbidities. Pt Condition on Discharge: Good Discharge Disposition: Rehab Inpatient Discharge Time: > 30 minutes Discharge Instructions DIET: Follow Instructions for: Diabetic Diet Activities you can perform: Regular-No Restrictions Follow up Referrals: Cardiology - 4 Weeks with Renny Del Toro MD PCP Follow-up - 2 Weeks with Di Brower D.o. Surgical - 2 Weeks with Nika Egan New Orders: BASIC METABOLIC PROF - 2-3 Days CBC NO DIFF - 2 Weeks PT/INR - Daily X-RAY CHEST PA & LAT - 2 Weeks New Medications: Enoxaparin Inj (Lovenox Inj) 100 Mg/Ml Syr 90 MG SQ DAILY for Blood Clot Prevention for 5 Days, SYRINGE 0 Refills sub q daily , then dc when INR >2.0 Amiodarone (Amiodarone) 200 Mg Tab 400 MG PO Q12HR for heart rhythm, #60 TAB 400mg bid x 7 days, then 200mg daily Aspirin (Tgt Aspirin) 81 Mg Chw 81 MG PO DAILY for Blood Clot Prevention, #30 EA 2 Refills Carvedilol (Coreg) 12.5 Mg Tab 12.5 MG PO BID for Blood Pressure Management, #60 TAB 2 Refills Insulin Detemir Inj (Levemir Inj) 1,000 unit/ 10 ML Vial 5 UNITS SQ Q12HR for Blood Sugar Management, #1 INJECTION Do not mix with any other Insulin. Multiple Vitamins W/ Minerals (Thera M Plus) 1 Tab 1 TAB PO DAILY for multi vitamin, #30 TAB 2 Refills [Lactic Acid 12% Lotion] () 225 APPLIC/225 GM LOTN 1 APPLIC TOPICAL BID, #1 APPLIC apply to right foot twice a day after showering Continued Medications: Atorvastatin (Atorvastatin) 80 Mg Tab 80 MG PO HS for Cholesterol Management, #30 TAB 0 Refills Digoxin (Digoxin) 0.125 Mg Tab 0.125 MG PO DAILY for Regulate Heart Beat, #30 TAB 0 Refills Morphine Sulfate (Morphine Sulfate) 15 Mg/Ml Inj 15 MG PO 5 TIMES A DAY for Pain Management Warfarin (Warfarin) 3 Mg Tab 6 MG PO DAILY for Blood Clot Prevention, #30 TAB 0 Refills Discontinued Medications: Furosemide (Furosemide) 20 Mg Tab 40 MG PO DAILY for swelling, #30 TAB 0 Refills Insulin Detemir Inj (Levemir Inj) 1,000 unit/ 10 ML Vial 32 UNITS SQ Q12HR for Blood Sugar Management, VIAL 0 Refills Do not mix with any other Insulin. Insulin Lispro (Human) Inj (Humalog Inj) 1,000 Unit/10 Ml Vial 5-25 UNITS SQ ACHS for Blood Sugar Management, #1 VIAL 0 Refills Max dose at bedtime:( )units; sugars < 70,(0)units; sugars 150-199,(5)units; sugars 200-249,(10)units; sugars 250-299,(15)units; sugars 300-349,(20)units; sugars more than 349,(25)units. Isosorbide Mononitrate ER (Isosorbide Mononitrate ER) 30 Mg [place] 30 MG PO DAILY for Prevent Chest Pain, #30 TAB 0 Refills Metoprolol Succinate ER 24 HR (Metoprolol Succinate ER 24 HR) 50 Mg Tab 25 MG PO DAILY, #30 TAB 0 Refills Hamzah Mireles MD Jul 06, 2017 21:55
--- NOTE | 2017-07-11 11:50 | RSPPFT ---
DATE OF PROCEDURE: 06/28/17 COMMENTS: Spirometry demonstrates an FEV1 of 0.9 at 28% of predicted, FVC of 1.9 at 44%, FEF 25-75 is 15%. Flow volume loops suggest severe obstruction. IMPRESSION: 1. Moderately severe obstructive airways disease.
== END 2017-07-06 16:15 | DRG 234 ==
LOC: NEPE 08:21 → NEDA 10:16 → N04B 16:18 → HCIS 06-27 18:53 → HCVI 07-01 19:15 → HCPC 07-03 11:35
PROVIDERS: ADMIT Internal Medicine; ATTEND Internal Medicine
PROC: 4A023N7 Measurement of Cardiac Sampling and Pressure, Left Heart, Percutaneous Approach (ICD-10-PCS; 2017-06-27)
PROC: B2111ZZ Fluoroscopy of Multiple Coronary Arteries using Low Osmolar Contrast (ICD-10-PCS; 2017-06-27)
PROC: B2151ZZ Fluoroscopy of Left Heart using Low Osmolar Contrast (ICD-10-PCS; 2017-06-27)
PROC: 021109W Bypass Coronary Artery, Two Arteries from Aorta with Autologous Venous Tissue, Open Approach (ICD-10-PCS; 2017-07-01)
PROC: 06BQ4ZZ Excision of Left Saphenous Vein, Percutaneous Endoscopic Approach (ICD-10-PCS; 2017-07-01)
PROC: 5A1221Z Performance of Cardiac Output, Continuous (ICD-10-PCS; 2017-07-01)
PROC: B246ZZ4 Ultrasonography of Right and Left Heart, Transesophageal (ICD-10-PCS; 2017-07-01)
PROC: 5A1935Z Respiratory Ventilation, Less than 24 Consecutive Hours (ICD-10-PCS; 2017-07-01)
PROC: 02100Z9 Bypass Coronary Artery, One Artery from Left Internal Mammary, Open Approach (ICD-10-PCS; principal; 2017-07-01 13:20)
DX: I21.4 Non-ST elevation (NSTEMI) myocardial infarction (principal); I47.2 Ventricular tachycardia; E11.21 Type 2 diabetes mellitus with diabetic nephropathy; I13.0 Hypertensive heart and chronic kidney disease with heart failure and stage 1 through stage 4 chronic kidney disease, or unspecified chronic kidney disease; I50.22 Chronic systolic (congestive) heart failure; E87.1 Hypo-osmolality and hyponatremia; B19.10 Unspecified viral hepatitis B without hepatic coma; L97.419 Non-pressure chronic ulcer of right heel and midfoot with unspecified severity; E11.22 Type 2 diabetes mellitus with diabetic chronic kidney disease; N18.3 Chronic kidney disease, stage 3 (moderate); Z91.19 Patient's noncompliance with other medical treatment and regimen; I48.0 Paroxysmal atrial fibrillation; I48.2 Chronic atrial fibrillation; F17.210 Nicotine dependence, cigarettes, uncomplicated; B18.2 Chronic viral hepatitis C; I25.119 Atherosclerotic heart disease of native coronary artery with unspecified angina pectoris; E11.40 Type 2 diabetes mellitus with diabetic neuropathy, unspecified; E11.51 Type 2 diabetes mellitus with diabetic peripheral angiopathy without gangrene; M54.9 Dorsalgia, unspecified; G89.4 Chronic pain syndrome; K74.60 Unspecified cirrhosis of liver; I25.5 Ischemic cardiomyopathy; I25.2 Old myocardial infarction; L29.9 Pruritus, unspecified; R21 Rash and other nonspecific skin eruption; L97.511 Non-pressure chronic ulcer of other part of right foot limited to breakdown of skin; I08.1 Rheumatic disorders of both mitral and tricuspid valves; K21.9 Gastro-esophageal reflux disease without esophagitis; E78.5 Hyperlipidemia, unspecified; E11.621 Type 2 diabetes mellitus with foot ulcer; N52.9 Male erectile dysfunction, unspecified; F12.90 Cannabis use, unspecified, uncomplicated; E11.65 Type 2 diabetes mellitus with hyperglycemia; E87.5 Hyperkalemia; K59.09 Other constipation; R79.1 Abnormal coagulation profile; D64.9 Anemia, unspecified; Z86.79 Personal history of other diseases of the circulatory system; Z79.01 Long term (current) use of anticoagulants; Z95.810 Presence of automatic (implantable) cardiac defibrillator; Z90.49 Acquired absence of other specified parts of digestive tract; Z89.512 Acquired absence of left leg below knee; Z79.4 Long term (current) use of insulin; Z89.421 Acquired absence of other right toe(s)
CPT/HCPCS: 71045; 76937; 80048; 80053; 80061; 80162; 81001; 82550; 82552; 82948; 83036; 83735; 83880; 84132; 84484; 85007; 85025; 85027; 85610; 85730; 86077; 86850; 86870; 86900; 86901; 86902; 86920; 86922; 93005; 93306; 93318; 93458; 93880; 93970; 93998; 94002; 94010; 94150; 94640; 94664; 94667; 94668; 99152; 99285; C1893; J0131; J0171; J0282; J0610; J0690; J1644; J1650; J1815; J1817; J2150; J2250; J2405; J2440; J2765; J2930; J3010; J3370; J3475; J3480; J7030; J7050; J7060; P9045; P9047; Q9967

== ENCOUNTER 2017-07-26 03:45 | Inpatient (IN) | payer MEDICARE, MEDICAID ==
[~2017-07-26] VITALS: Ht 172.7 cm; Wt 87.4 kg
[2017-07-26] VITALS (17 sets, daily range): BP systolic 132–187; BP diastolic 68–89; PULSE 60–70; RESP 16–24; TEMP 97.1–97.8; O2SAT 94–100
[~2017-07-26 03:45] MED LIST changes: +ACET325T15 PO; +ALBU1.25 NEB; +AMIO200T PO; +ASPI81 PO; +Albuterol-Ipratropium Neb NEB; +Budeson-Formot 160-4.5 Mcg Inh INH; +CARV12.5 PO; +COUG100S PO; +ENOX100P SQ; -FURO20TA PO; +FURO80TA PO; -ISOS30TA3 PO; +Lactic Acid 12% Lotion TOPICAL; -METO1TAB9 PO; +METO5TAB3 PO; +MSIR15 PO; +NOVOLOGSS SQ; +PANT40TA3 PO; +PRED20 PO; +THERM PO; -WHEEMIS3
[2017-07-26] MEDS ORDERED: NITROGLYCERIN-D5W 50 MG/250 ML 250 ML ONE (03:48)
--- NOTE | 2017-07-26 03:53 | PD ---
HPI Chief Complaint: Shortness of breath Time Seen by Provider: 03:47 Travel History International Travel<30 days: No Contact w/Intl Traveler<30days: No Traveled to known affect area: No History of Present Illness HPI The patient is a 66-year-old male who presents to the emergency department from [facility] for shortness of breath. The patient had a recent hospitalization and underwent cardiac catheterization and CABG by Dr. Atkins. The patient was then sent to rehabilitation. The patient developed shortness of breath earlier tonight which has progressively worsened. The patient was noted to be somewhat diaphoretic, tachypneic, with elevated blood pressure by EMS. EMS provided a DuoNeb and then noted that the patient had rales throughout all 4 lung william. The patient presented to the emergency department on CPAP with mild improvement of his symptoms, was noted to be hypoxic in the 70s at the custodial per EMS report. The patient denies any new chest pain, does have chronic chest pain secondary to the sternotomy. He does note increasing shortness of breath tonight that was worse with lying supine. He does note increase in edema to the right lower extremity over the last several days. Symptoms are moderate. PFSH Past Medical History Hx Anticoagulant Therapy: Yes AAA: Yes (REPAIR ) Arthritis: No Asthma: No Atrial Fibrillation: Yes Autoimmune Disease: No Blood Disorders: No Anxiety: No Depression: No Heart Rhythm Problems: Yes (A-FIB, AFLUTTER) Cancer: No Cardiac Catheterization: Yes (x 3) Cardiomyopathy: Yes Cardiovascular Problems: Yes High Cholesterol: Yes Chemotherapy: No Chest Pain: Yes Congestive Heart Failure: Yes Cirrhosis: Yes (denies) COPD: No Cerebrovascular Accident: No Coronary Artery Disease: Yes Diabetes: Yes Diminished Hearing: No Endocrine: Yes Gastrointestinal Disorders: No GERD: No Glaucoma: No Genitourinary: Yes Headaches: No Hepatitis: Yes (C, Hx of B) Hiatal Hernia: No Hypertension: Yes Immune Disorder: No Implanted Vascular Access Dvce: Yes Kidney Stones: No Musculoskeletal: No Neurologic: Yes Psychiatric: No Reproductive: No Respiratory: Yes Immunizations Current: Yes Migraines: No Myocardial Infarction: No Radiation Therapy: No Renal Failure: No Seizures: No Sickle Cell Disease: No Sleep Apnea: No Thyroid Disease: No Ulcer: No PNEUMOCCOCAL Vaccine (Year): 2 Past Surgical History Abdominal Surgery: Yes (AAA REPAIR) AICD: Yes ([employer]) Appendectomy: No Arteriovenous Shunt: No Cardiac Surgery: Yes (CAROTID ENDARTERECTOMY, CABG X3) Cholecystectomy: No Ear Surgery: No Endocrine Surgery: No Eye Surgery: No Genitourinary Surgery: No Gynecologic Surgery: No Insulin Pump: No Joint Replacement: No Oral Surgery: No Pacemaker: Yes Thoracic Surgery: No Tonsillectomy: Yes Other Surgery: Yes (LT BKA, ALL DIGITS FROM RT FOOT, AAA, PACEMAKER, ENDARECTOMY) Social History Alcohol Use: No Tobacco Use: Yes (06/07 PPD) Substance Use: No Allergies-Medications (Allergen,Severity, Reaction): Coded Allergies: Sulfa (Sulfonamide Antibiotics) (Verified Allergy, Severe, Itching, Elevated Blood Pressure, SOB, 06/23/17) sulfamethoxazole (Verified Allergy, Severe, Elevated blood pressure, Generalized itching, 06/23/17) trimethoprim (Verified Allergy, Severe, Elevated blood pressure, Generalized itching, 06/23/17) MRI PRECAUTION (Verified Adverse Reaction, Severe, PACEMAKER KD NOT REVO, 06/23/17) Reported Meds & Prescriptions Reported Meds & Active Scripts Active Morphine IR (Morphine Sulfate) 15 Mg Tab 15 Mg PO Q6H PRN Metolazone 5 Mg Tab 5 Mg PO DAILY Furosemide 80 Mg Tab 80 Mg PO BID@ Novolog Inj (Insulin Aspart) 100 Unit/Ml Inj 1 Unit SQ ACHS SLIDING SCALE If glucoses less than 149 give 0 units If glucose is 150-199 give 1 unit If glucose is 200-249 give 3 units If glucose is 250-299 give 5 units If glucose is 300-349 give 7 units If glucose is over 349 give 9 units Albuterol Neb (Albuterol Sulfate) 1.25 Mg/3 Ml Neb 1.25 Mg NEB Q2HR NEB PRN [Albuterol-Ipratropium Neb] 1 AMPULE Nebu 1 Ampule NEB Q4HR WHILE AWAKE NEB 30 Days Lovenox Inj (Enoxaparin Sodium) 100 Mg/Ml Syr 90 Mg SQ DAILY 30 Days sub q daily , then dc when INR >2.0 Prednisone 20 Mg Tab 20 Mg PO BID 4 Days Continue this medication through July 28, 2017. Levemir Inj (Insulin Detemir) 1,000 unit/ 10 ML Vial 20 Units SQ DAILY@0800 30 Days Do not mix with any other Insulin. Levemir Inj (Insulin Detemir) 1,000 unit/ 10 ML Vial 12 Units SQ HS 30 Days Do not mix with any other Insulin. Eq Acetaminophen (Acetaminophen) 325 Mg Tab 650 Mg PO Q4H PRN MDD 2 g 30 Days Pantoprazole (Pantoprazole Sodium) 40 Mg Tab 40 Mg PO BID Cough Syrup (Guaifenesin) 100 Mg/5 Ml Syrp 200 Mg PO TID 10 Days [Budeson-Formot 160-4.5 Mcg Inh] 60 PUFF Aero 2 Puff INH Q12HR Amiodarone (Amiodarone HCl) 200 Mg Tab 200 Mg PO DAILY Thera M Plus (Multivitamins/Minerals Therapeutic) 1 Tab 1 Tab PO DAILY [Lactic Acid 12% Lotion] 225 APPLIC/225 GM Lotn 1 Applic TOPICAL BID apply to right foot twice a day after showering Tgt Aspirin (Aspirin) 81 Mg Chw 81 Mg PO DAILY Coreg (Carvedilol) 12.5 Mg Tab 12.5 Mg PO BID Atorvastatin (Atorvastatin Calcium) 80 Mg Tab 80 Mg PO HS Warfarin 3 Mg Tab 6 Mg PO DAILY Digoxin 0.125 Mg Tab 0.125 Mg PO DAILY Reported Morphine Sulfate 15 Mg/Ml Inj 15 Mg PO 5 TIMES A DAY Review of Systems Except as stated in HPI: all other systems reviewed are Neg General / Constitutional: No: Fever Cardiovascular: Positive: Chest Pain or Discomfort (Chest pain from sternotomy , denies any new chest pain), Irregular Rhythm, Diaphoresis, Dyspnea on exertion Respiratory: Positive: Shortness of Breath, Orthopnea Gastrointestinal: No: Nausea, Vomiting, Abdominal Pain Musculoskeletal: Positive: Edema Physical Exam Narrative GENERAL: Awake, alert, pleasant 66-year-old male who appears his stated age and is in no acute respiratory distress. SKIN: Focused skin assessment warm/dry. HEAD: Atraumatic. Normocephalic. EYES: P no injection or drainage. ENT: No nasal bleeding or discharge. Mucous membranes pink and moist. NECK: Trachea midline. No JVD. CARDIOVASCULAR: Irregularly irregular, heart rate in the 60s. Sternal scar noted. RESPIRATORY: Tachypnea with a respiratory rate of 26. Increased work of breathing. Rales noted throughout with diminished breath sounds in the bases bilaterally. GASTROINTESTINAL: Abdomen soft, non-tender, nondistended. Hepatic and splenic margins not palpable. MUSCULOSKELETAL: Left BKA. Right partial foot amputation. Edema noted in the right lower extremity with chronic venous stasis changes. NEUROLOGICAL: Awake and alert. No obvious cranial nerve deficits. Motor grossly within normal limits. Only able to speak in 1-2 word sentences secondary to shortness of breath. PSYCHIATRIC: Appropriate mood and affect; insight and judgment normal. Data Data Last Documented VS Vital Signs Date Time Temp Pulse Resp B/P (MAP) Pulse Ox O2 Delivery O2 Flow Rate FiO2 07/26/17 04:00 97.8 70 22 187/89 (121) 94 07/26/17 03:49 60 07/26/17 03:49 BiPAP Orders Orders Nitroglycerin-D5w 50 Mg/250 Ml (Nitrogly (07/26/17 03:48) Complete Blood Count With Diff (07/26/17 03:48) Comprehensive Metabolic Panel (07/26/17 03:48) B-Type Natriuretic Peptide (07/26/17 03:48) Act Partial Throm Time (Ptt) (07/26/17 03:48) Prothrombin Time / Inr (Pt) (07/26/17 03:48) Magnesium (Mg) (07/26/17 03:48) Ckmb (Isoenzyme) Profile (07/26/17 03:48) Troponin I (07/26/17 03:48) Iv Access Insert/Monitor (07/26/17 03:48) Electrocardiogram (07/26/17 03:48) Ecg Monitoring (07/26/17 03:48) Oximetry (07/26/17 03:48) Oxygen Administration (07/26/17 03:48) Chest, Single Ap (07/26/17 03:48) Sodium Chloride 0.9% Flush (Ns Flush) (07/26/17 04:00) Furosemide Inj (Lasix Inj) (07/26/17 04:00) Nitroglycerin-D5w 50 Mg/250 Ml (Nitrogly (07/26/17 04:00) Aspirin (Aspirin) (07/26/17 04:00) Digoxin (07/26/17 03:53) Resp Bipap / Cpap Non Invas Vt (07/26/17 ) Cefepime Inj (Maxipime Inj) (07/26/17 04:30) Azithromycin Inj (Zithromax Inj) (07/26/17 04:30) Consult Cardiothoracic Surgery (07/26/17 ) Arterial Blood Gas (Abg) (07/26/17 04:52) Admit Order (Ed Use Only) (07/26/17 05:02) Labs Laboratory Tests Test 07/26/17 03:50 07/26/17 04:52 White Blood Count 20.9 TH/MM3 Red Blood Count 3.24 MIL/MM3 Hemoglobin 9.9 GM/DL Hematocrit 28.4 % Mean Corpuscular Volume 87.6 FL Mean Corpuscular Hemoglobin 30.5 PG Mean Corpuscular Hemoglobin Concent 34.8 % Red Cell Distribution Width 17.6 % Platelet Count 292 TH/MM3 Mean Platelet Volume 8.4 FL Neutrophils (%) (Auto) 80.8 % Lymphocytes (%) (Auto) 10.7 % Monocytes (%) (Auto) 8.1 % Eosinophils (%) (Auto) 0.1 % Basophils (%) (Auto) 0.3 % Neutrophils # (Auto) 16.9 TH/MM3 Lymphocytes # (Auto) 2.2 TH/MM3 Monocytes # (Auto) 1.7 TH/MM3 Eosinophils # (Auto) 0.0 TH/MM3 Basophils # (Auto) 0.1 TH/MM3 CBC Comment AUTO DIFF Prothrombin Time 18.9 SEC Prothromb Time International Ratio 1.9 RATIO Activated Partial Thromboplast Time 29.6 SEC Blood Urea Nitrogen 102 MG/DL Creatinine 2.40 MG/DL Random Glucose 188 MG/DL Total Protein 9.0 GM/DL Albumin 4.7 GM/DL Calcium Level 9.3 MG/DL Magnesium Level 2.6 MG/DL Alkaline Phosphatase 151 U/L Aspartate Amino Transf (AST/SGOT) 41 U/L Alanine Aminotransferase (ALT/SGPT) 30 U/L Total Bilirubin 1.9 MG/DL Sodium Level 129 MEQ/L Potassium Level 3.9 MEQ/L Chloride Level 82 MEQ/L Carbon Dioxide Level 38.9 MEQ/L Anion Gap 8 MEQ/L Estimat Glomerular Filtration Rate 27 ML/MIN Total Creatine Kinase 94 U/L Troponin I 0.15 NG/ML B-Type Natriuretic Peptide 902 PG/ML MDM Medical Decision Making Medical Screen Exam Complete: Yes Emergency Medical Condition: Yes Medical Record Reviewed: Yes Interpretation(s) EKG reveals atrial fibrillation with occasionally paced rhythm. Chest x-ray reveals findings most characteristic of congestive heart failure. There are small bilateral pleural effusions with blunting of both costophrenic angles. Last Impressions Chest X-Ray 07/26/17 0348 Signed Impressions: Service Date/Time: Wednesday, July 26, 2017 03:56 - CONCLUSION: Findings most characteristic of congestive heart failure. Ashvin Shankar MD Laboratory Tests Test 07/26/17 03:50 07/26/17 04:52 White Blood Count 20.9 TH/MM3 Red Blood Count 3.24 MIL/MM3 Hemoglobin 9.9 GM/DL Hematocrit 28.4 % Mean Corpuscular Volume 87.6 FL Mean Corpuscular Hemoglobin 30.5 PG Mean Corpuscular Hemoglobin Concent 34.8 % Red Cell Distribution Width 17.6 % Platelet Count 292 TH/MM3 Mean Platelet Volume 8.4 FL Neutrophils (%) (Auto) 80.8 % Lymphocytes (%) (Auto) 10.7 % Monocytes (%) (Auto) 8.1 % Eosinophils (%) (Auto) 0.1 % Basophils (%) (Auto) 0.3 % Neutrophils # (Auto) 16.9 TH/MM3 Lymphocytes # (Auto) 2.2 TH/MM3 Monocytes # (Auto) 1.7 TH/MM3 Eosinophils # (Auto) 0.0 TH/MM3 Basophils # (Auto) 0.1 TH/MM3 CBC Comment AUTO DIFF Prothrombin Time 18.9 SEC Prothromb Time International Ratio 1.9 RATIO Activated Partial Thromboplast Time 29.6 SEC Blood Urea Nitrogen 102 MG/DL Creatinine 2.40 MG/DL Random Glucose 188 MG/DL Total Protein 9.0 GM/DL Albumin 4.7 GM/DL Calcium Level 9.3 MG/DL Magnesium Level 2.6 MG/DL Alkaline Phosphatase 151 U/L Aspartate Amino Transf (AST/SGOT) 41 U/L Alanine Aminotransferase (ALT/SGPT) 30 U/L Total Bilirubin 1.9 MG/DL Sodium Level 129 MEQ/L Potassium Level 3.9 MEQ/L Chloride Level 82 MEQ/L Carbon Dioxide Level 38.9 MEQ/L Anion Gap 8 MEQ/L Estimat Glomerular Filtration Rate 27 ML/MIN Total Creatine Kinase 94 U/L Troponin I 0.15 NG/ML B-Type Natriuretic Peptide 902 PG/ML Differential Diagnosis Differential diagnosis includes Edvin syndrome, pleural effusion, pulmonary edema, congestive heart failure, cardiomyopathy, pulmonary embolism, pneumonia. Narrative Course IV was established, labs were drawn and sent, and the patient was placed on cardiac telemetry monitoring and continuous pulse oximetry monitoring. EKG was ordered and interpreted. Chest x-ray was obtained. The patient was administered aspirin and placed on a nitroglycerin drip. Patient was placed on BiPAP. The patient's chest x-ray reveals bilateral pleural effusions and pulmonary edema consistent with congestive heart failure. Troponin was elevated. BNP is elevated. Creatinine is elevated. Patient's symptoms improved on BiPAP and with a nitro drip. After 1-1/2 hours, the patient came off of BiPAP. Consult was placed to the patient's cardiothoracic surgeon, Dr. Atkins, no phone call was made as the patient was stable at 4:30 AM. The patient will be admitted to the [facility], will need weaning off of the nitro drip Critical Care Narrative Aggregate critical care time was 40 minutes. Time to perform other separately billable procedures was not included in the critical care time. My time did not include minutes spent treating any other patients simultaneously or on activities that did not directly contribute to the patient's treatment. The services I provided to this patient were to treat and/or prevent clinically significant deterioration that could result in: Anoxia, hypoxia, flash pulmonary edema, arrhythmia. I provided critical care services requiring my management, as noted below: Chart data review, documentation time, medication orders and management, vital sign assessments/reviewing monitor data, ordering and reviewing lab tests, ordering and interpreting/reviewing x-rays and diagnostic studies, care of the patient and discussion of the patient with the admitting physicians. Physician Communication Physician Communication I discussed the patient with Dr. Lyle who agrees with admission to [facility]. Diagnosis Primary Impression: CHF (congestive heart failure) Qualified Codes: I50.9 - Heart failure, unspecified Additional Impressions: S/P CABG x 3 Elevated troponin Admitting Information Admitting Physician Requests: Admit Condition: Stable Fabio Lester MD Jul 26, 2017 03:53
[2017-07-26] MEDS ORDERED: ASPIRIN 325 MG TAB PO ONE (04:00)
[2017-07-26] MEDS ORDERED: FUROSEMIDE 100 MG/10 ML VIAL IVP ONE (04:00)
[2017-07-26] MEDS ORDERED: NITROGLYCERIN-D5W 50 MG/250 ML 250 ML IV ONE (04:00)
[2017-07-26] MEDS ORDERED: SODIUM CHLORIDE 0.9% FLUSH 10 ML FLUSH IVF PRN (04:00)
[2017-07-26 04:10] LABS: AUTOMATED NEUTROPHIL # 16.9 TH/MM3 (1.8-7.7); BASOPHIL # 0.1 TH/MM3 (0-0.2); BASOPHIL % 0.3 % (0.0-2.0); EOSINOPHIL % 0.1 % (0.0-4.0); HEMATOCRIT 28.4 % (39.0-51.0); HEMOGLOBIN 9.9 GM/DL (13.0-17.0); LYMPH % 10.7 % (9.0-44.0); LYMPHOCYTE # 2.2 TH/MM3 (1.0-4.8); MEAN CELL VOLUME 87.6 FL (80.0-100.0); MEAN CORPUSCULAR HEMOGLOBIN 30.5 PG (27.0-34.0); MEAN CORPUSCULAR HGB CONC 34.8 % (32.0-36.0); MEAN PLATELET VOLUME 8.4 FL (7.0-11.0); MONO % 8.1 % (0.0-8.0); MONOCYTE # 1.7 TH/MM3 (0-0.9); NEUT % 80.8 % (16.0-70.0); PLATELET COUNT 292 TH/MM3 (150-450); RED BLOOD COUNT 3.24 MIL/MM3 (4.50-5.90); RED CELL DISTRIBUTION WIDTH 17.6 % (11.6-17.2); WHITE BLOOD COUNT 20.9 TH/MM3 (4.0-11.0)
--- NOTE | 2017-07-26 04:23 | RADRPT ---
EXAM DATE/TIME: 07/26/2017 03:56 [facility] COMPARISON: No previous studies available for comparison. INDICATIONS : Short of breath. MEDICAL HISTORY : Non repsonsive. SURGICAL HISTORY : Pacemaker. CABG. ENCOUNTER: Initial ACUITY: 1 day PAIN SCORE: 0/10 LOCATION: Bilateral chest FINDINGS: A single AP portable semierect view of the chest was obtained and demonstrates that the patient is st atus post median sternotomy. There are small bilateral pleural effusions with blunting of both costop hrenic angles. The heart size appears at the upper limits of normal. There is a hazy opacity in the p erihilar regions and lung bases. There is a left subclavian transvenous pacer in place. CONCLUSION: Findings most characteristic of congestive heart failure. Ashvin Shankar MD on July 26, 2017 at 4:21 Board Certified Radiologist. This report was verified electronically.
[2017-07-26 04:25] LABS: INTERNATIONAL NORMALIZED RATIO 1.9 RATIO; PROTHROMBIN TIME - PATIENT 18.9 SEC (9.8-11.6)
[2017-07-26 04:29] LABS: ALBUMIN 4.7 GM/DL (3.4-5.0); ALKALINE PHOSPHATASE 151 U/L (45-117); ALT (GPT) 30 U/L (12-78); AST (GOT) 41 U/L (15-37); BICARBONATE 38.9 MEQ/L (21.0-32.0); BLOOD UREA NITROGEN 102 MG/DL (7-18); CALCIUM 9.3 MG/DL (8.5-10.1); CHLORIDE 82 MEQ/L (98-107); GLOMERULAR FILTRATION RATE 27 ML/MIN (>89); GLUCOSE,RANDOM 188 MG/DL (74-106); MAGNESIUM 2.6 MG/DL (1.5-2.5); SODIUM (NA) 129 MEQ/L (136-145); TOTAL BILIRUBIN ADULT 1.9 MG/DL (0.2-1.0); TROPONIN I 0.15 NG/ML (0.02-0.05)
[2017-07-26] MEDS ORDERED: CEFEPIME INJ 2,000 MG in SODIUM CHLORIDE 0.9% INJ 100 ML IV ONE (04:30)
[2017-07-26] MEDS ORDERED: AZITHROMYCIN INJ 500 MG in SODIUM CHLOR 0.9% 250 ML INJ 250 ML IV ONE (04:30)
[2017-07-26] MEDS ORDERED: ONDANSETRON HCL 4 MG/2 ML VIAL IVP PRN (05:45)
[2017-07-26] MEDS ORDERED: DEXTROSE 50% IN WATER 50 ML VIAL(D50) IV PUSH PRN (05:45)
[2017-07-26] MEDS ORDERED: NALOXONE HCL 0.4 MG/ML AMP IV PUSH PRN (05:45)
[2017-07-26] MEDS ORDERED: GLUCAGON 1 MG/ML VIAL OTHER PRN (05:45)
[2017-07-26] MEDS ORDERED: BISACODYL 10 MG SUPP RECTAL PRN (05:45)
[2017-07-26] MEDS ORDERED: MAGNESIUM HYDROXIDE SUSP 30 ML CUP PO PRN (05:45)
[2017-07-26] MEDS ORDERED: LACTULOSE SYRUP 20 GM/30 ML CUP PO PRN (05:45)
[2017-07-26] MEDS ORDERED: SENNOSIDES 8.6 MG TAB PO PRN (05:45)
[2017-07-26] MEDS ORDERED: ACETAMINOPHEN 325 MG TAB PO PRN (05:45)
[2017-07-26] MEDS ORDERED: SODIUM CHLORIDE 0.9% FLUSH 10 ML FLUSH IV FLUSH PRN (05:45)
--- NOTE | 2017-07-26 06:25 | HHI.HP ---
[facility] Di Dutton D.O. Admission Diagnosis Congestive heart failure, pulmonary edema, elevated troponin Diagnoses: Travel History International Travel<30 Days: No Contact w/Intl Traveler <30 Da: No Traveled to Known Affected Are: No History of Present Illness 66-year-old male with a past medical history significant for hypertension, atrial fibrillation anticoagulated on Coumadin, coronary artery disease status post CABG 3 on 07/01/17, peripheral vascular disease, hepatitis C , cirrhosis, diabetes mellitus and chronic back pain presents to the emergency department for evaluation of respiratory distress. The patient was discharged from [place] on 07/25/17 to [facility] where he resided for one day. He was brought to the emergency department for evaluation of shortness of breath and was found to be hypoxic in the 70s at the halfway. The patient denies any chest pain. He denies cough. No fever/chills. Denies nausea/vomiting/ diarrhea. Endorses an increase in his bilateral lower extremity edema. Review of Systems Except as stated in HPI: all other systems reviewed are Neg Past Family Social History Past Medical History Hypertension Atrial fibrillation on Coumadin CAD s/p NSTEMI and CABG 07/01/17 CHF with EF 30-35% CKD stage III PVD History of left BKA Status post AICD/pacemaker implant Hepatitis C Cirrhosis Diabetes Chronic back pain Past Surgical History CABG x 3 07/01/17 AAA repair Right CEA AICD/pacemaker implant 2016 Left BKA Right toe amputation 5 digits Reported Medications Reported Meds & Active Scripts Active Morphine IR (Morphine Sulfate) 15 Mg Tab 15 Mg PO Q6H PRN Metolazone 5 Mg Tab 5 Mg PO DAILY Furosemide 80 Mg Tab 80 Mg PO BID@ Novolog Inj (Insulin Aspart) 100 Unit/Ml Inj 1 Unit SQ ACHS SLIDING SCALE If glucoses less than 149 give 0 units If glucose is 150-199 give 1 unit If glucose is 200-249 give 3 units If glucose is 250-299 give 5 units If glucose is 300-349 give 7 units If glucose is over 349 give 9 units Albuterol Neb (Albuterol Sulfate) 1.25 Mg/3 Ml Neb 1.25 Mg NEB Q2HR NEB PRN [Albuterol-Ipratropium Neb] 1 AMPULE Nebu 1 Ampule NEB Q4HR WHILE AWAKE NEB 30 Days Lovenox Inj (Enoxaparin Sodium) 100 Mg/Ml Syr 90 Mg SQ DAILY 30 Days sub q daily , then dc when INR >2.0 Prednisone 20 Mg Tab 20 Mg PO BID 4 Days Continue this medication through July 28, 2017. Levemir Inj (Insulin Detemir) 1,000 unit/ 10 ML Vial 20 Units SQ DAILY@0800 30 Days Do not mix with any other Insulin. Levemir Inj (Insulin Detemir) 1,000 unit/ 10 ML Vial 12 Units SQ HS 30 Days Do not mix with any other Insulin. Eq Acetaminophen (Acetaminophen) 325 Mg Tab 650 Mg PO Q4H PRN MDD 2 g 30 Days Pantoprazole (Pantoprazole Sodium) 40 Mg Tab 40 Mg PO BID Cough Syrup (Guaifenesin) 100 Mg/5 Ml Syrp 200 Mg PO TID 10 Days [Budeson-Formot 160-4.5 Mcg Inh] 60 PUFF Aero 2 Puff INH Q12HR Amiodarone (Amiodarone HCl) 200 Mg Tab 200 Mg PO DAILY Thera M Plus (Multivitamins/Minerals Therapeutic) 1 Tab 1 Tab PO DAILY [Lactic Acid 12% Lotion] 225 APPLIC/225 GM Lotn 1 Applic TOPICAL BID apply to right foot twice a day after showering Tgt Aspirin (Aspirin) 81 Mg Chw 81 Mg PO DAILY Coreg (Carvedilol) 12.5 Mg Tab 12.5 Mg PO BID Atorvastatin (Atorvastatin Calcium) 80 Mg Tab 80 Mg PO HS Warfarin 3 Mg Tab 6 Mg PO DAILY Digoxin 0.125 Mg Tab 0.125 Mg PO DAILY Reported Morphine Sulfate 15 Mg/Ml Inj 15 Mg PO 5 TIMES A DAY Allergies: Coded Allergies: Sulfa (Sulfonamide Antibiotics) (Verified Allergy, Severe, Itching, Elevated Blood Pressure, SOB, 06/23/17) sulfamethoxazole (Verified Allergy, Severe, Elevated blood pressure, Generalized itching, 06/23/17) trimethoprim (Verified Allergy, Severe, Elevated blood pressure, Generalized itching, 06/23/17) MRI PRECAUTION (Verified Adverse Reaction, Severe, PACEMAKER KD NOT REVO, 06/23/17) Family History Mother, breast cancer, CHF, CAD, CABG 5 Social History Patient has a history of tobacco use of one pack per day since the age of 23 states he quit smoking one month ago. He reports history of heavy alcohol use in the past and quit drinking in 1994. He also has a history of illicit drug use including cocaine and Dilaudid which he quit in 1995. Physical Exam Vital Signs Vital Signs Date Time Temp Pulse Resp B/P (MAP) Pulse Ox O2 Delivery O2 Flow Rate FiO2 07/26/17 05:33 100 40 07/26/17 05:10 100 Nasal Cannula 2.00 07/26/17 04:00 97.8 70 22 187/89 (121) 94 07/26/17 03:59 54 214/93 07/26/17 03:49 95 60 07/26/17 03:49 95 BiPAP 60 07/26/17 03:45 94 BiPAP 07/26/17 03:45 70 22 94 CPAP 07/26/17 03:45 22 100 BiPAP Physical Exam GENERAL: This is a well-nourished, well-developed male patient, in moderate. SKIN: Cool and dry. Discoloration right lower extremity. HEAD: Atraumatic. Normocephalic. No temporal or scalp tenderness. EYES: Pupils equal round and reactive. Extraocular motions intact. No scleral icterus. No injection or drainage. ENT: Nose without bleeding or purulent drainage. Throat without erythema, tonsillar hypertrophy or exudate. Uvula midline. Airway patent. NECK: Trachea midline. No lymphadenopathy. Supple, nontender, no meningeal signs. CARDIOVASCULAR: Regular rate and rhythm without murmurs, gallops, or rubs. RESPIRATORY: Diminished air entry bilaterally. Bilateral crackles. No wheezes, rales, or rhonchi. GASTROINTESTINAL: Abdomen soft, non-tender, nondistended. No hepato-splenomegaly , or palpable masses. No guarding. MUSCULOSKELETAL: Status post left BKA. 2-3+ edema in the right lower extremity. NEUROLOGICAL: Awake and alert. Cranial nerves II through XII grossly intact. Motor and sensory grossly within normal limits. Normal speech. Laboratory Laboratory Tests Test 07/26/17 03:50 07/26/17 04:52 White Blood Count 20.9 Red Blood Count 3.24 Hemoglobin 9.9 Hematocrit 28.4 Mean Corpuscular Volume 87.6 Mean Corpuscular Hemoglobin 30.5 Mean Corpuscular Hemoglobin Concent 34.8 Red Cell Distribution Width 17.6 Platelet Count 292 Mean Platelet Volume 8.4 Neutrophils (%) (Auto) 80.8 Lymphocytes (%) (Auto) 10.7 Monocytes (%) (Auto) 8.1 Eosinophils (%) (Auto) 0.1 Basophils (%) (Auto) 0.3 Neutrophils # (Auto) 16.9 Lymphocytes # (Auto) 2.2 Monocytes # (Auto) 1.7 Eosinophils # (Auto) 0.0 Basophils # (Auto) 0.1 CBC Comment AUTO DIFF Differential Comment AUTO DIFF CONFIRMED Platelet Estimate NORMAL Platelet Morphology Comment NORMAL Prothrombin Time 18.9 Prothromb Time International Ratio 1.9 Activated Partial Thromboplast Time 29.6 Blood Urea Nitrogen 102 Creatinine 2.40 Random Glucose 188 Total Protein 9.0 Albumin 4.7 Calcium Level 9.3 Magnesium Level 2.6 Alkaline Phosphatase 151 Aspartate Amino Transf (AST/SGOT) 41 Alanine Aminotransferase (ALT/SGPT) 30 Total Bilirubin 1.9 Sodium Level 129 Potassium Level 3.9 Chloride Level 82 Carbon Dioxide Level 38.9 Anion Gap 8 Estimat Glomerular Filtration Rate 27 Total Creatine Kinase 94 Troponin I 0.15 B-Type Natriuretic Peptide 902 Digoxin Level 2.3 Blood Gas Puncture Site LT RADIAL Blood Gas Patient Temperature 98.6 Blood Gas HCO3 39 Blood Gas Base Excess 14.8 Blood Gas Oxygen Saturation 97 Arterial Blood pH 7.49 Arterial Blood Partial Pressure CO2 53 Arterial Blood Partial Pressure O2 234 Arterial Blood Oxygen Content 12.4 Arterial Blood Carboxyhemoglobin 3.0 Arterial Blood Methemoglobin 0.5 Blood Gas Hemoglobin 8.7 Oxygen Delivery Device BiPAP Blood Gas Ventilator Setting IPAP15 / EPAP5 Blood Gas Inspired Oxygen 60 Result Diagram: 07/26/1734907/26/17349 Caprini VTE Risk Assessment Caprini VTE Risk Assessment: Mod/High Risk (score >= 2) Caprini Risk Assessment Model Point Value = 1 Point Value = 2 Point Value = 3 Point Value = 5 Age 41-60 Minor surgery BMI > 25 kg/m2 Swollen legs Varicose veins or History of unexplained or recurrent spontaneous Oral contraceptives or hormone replacement Sepsis (< 1 month) Serious lung disease, including pneumonia (< 1 month) Abnormal pulmonary function Acute myocardial infarction Congestive heart failure (< 1 month) History of inflammatory bowel disease Medical patient at bed rest Age 61-74 Arthroscopic surgery Major open surgery (> 45 min) Laparoscopic surgery (> 45 min) Malignancy Confined to bed (> 72 hours) Immobilizing plaster cast Central venous access Age >= 75 History of VTE Family history of VTE Factor V Leiden Prothrombin [id number] Lupus anticoagulant Anticardiolipin antibodies Elevated serum homocysteine Heparin-induced thrombocytopenia Other congenital or acquired thrombophilia Stroke (< 1 month) Elective arthroplasty Hip, pelvis, or leg fracture Acute spinal cord injury (< 1 month) Prophylaxis Regimen Total Risk Factor Score Risk Level Prophylaxis Regimen 0-1 Low Early ambulation 2 Moderate Order ONE of the following: *Sequential Compression Device (SCD) *Heparin 5000 units SQ BID 3-4 Higher Order ONE of the following medications: *Heparin 5000 units SQ TID *Enoxaparin/Lovenox 40 mg SQ daily (WT < 150 kg, CrCl > 30 mL/min) *Enoxaparin/Lovenox 30 mg SQ daily (WT < 150 kg, CrCl > 10-29 mL/min) *Enoxaparin/Lovenox 30 mg SQ BID (WT < 150 kg, CrCl > 30 mL/min) AND/OR *Sequential Compression Device (SCD) 5 or more Highest Order ONE of the following medications: *Heparin 5000 units SQ TID (Preferred with Epidurals) *Enoxaparin/Lovenox 40 mg SQ daily (WT < 150 kg, CrCl > 30 mL/min) *Enoxaparin/Lovenox 30 mg SQ daily (WT < 150 kg, CrCl > 10-29 mL/min) *Enoxaparin/Lovenox 30 mg SQ BID (WT < 150 kg, CrCl > 30 mL/min) AND *Sequential Compression Device (SCD) Assessment and Plan Assessment and Plan Assessment/plan: 1. Respiratory failure Secondary to CHF, BNP elevated, chest x-ray significant for vascular congestion with bilateral pleural effusions, personally reviewed Likely COPD component - continue steroids, pulmonary consulted, appreciate recommendations May be infectious, plan as below IV Lasix Continue home metolazone ABG 7.49/53/97/39 Continue BiPAP, wean as tolerated 2. Acute on chronic renal failure BUN/creatinine continues to trend upward Nephrology consulted, appreciate recommendations 3. Leukocytosis May be secondary to steroid use however significantly increased since 07/23 Chest x-ray without areas of consolidation however bilateral pleural effusions and vascular congestion present UA pending Blood cultures pending Cefepime/azithromycin until infection can be ruled out 4. CAD status post CABG Continue home medications Cardiothoracic surgery consulted, appreciate recommendations 5. CHF As above 6. Diabetes mellitus Continue home Levemir Sliding scale insulin Monitor blood glucose 7. Atrial fibrillation Continue anticoagulation with warfarin Continue home medications Digoxin level pending 8. Cirrhosis/hepatitis C LFTs stable Monitor Outpatient follow-up 9. Chronic Pain/right lateral foot ulcer Wound care Continue home pain regimen with by mouth morphine FEN Heart healthy diet Electrolytes: monitor and replete prn Coumadin Physician Certification 2 Midnight Certification Type: Admission for Inpatient Services Order for Inpatient Services The services are ordered in accordance with Medicare regulations or non- Medicare payer requirements, as applicable. In the case of services not specified as inpatient-only, they are appropriately provided as inpatient services in accordance with the 2-midnight benchmark. Estimated LOS (days): 2 2 days is the estimated time the patient will need to remain in the hospital, assuming treatment plan goals are met and no additional complications. Post-Hospital Plan: Not yet determined Yaneth Lyle MD Jul 26, 2017 06:25
[2017-07-26] MEDS: INSULIN ASPART SUPPLEMENTAL SCALE SQ SCH ×4 (08:00→21:00)
[2017-07-26] MEDS: PANTOPRAZOLE SOD 40 MG DELAYED RELEASE TAB PO SCH ×2 (08:47→20:30)
[2017-07-26] MEDS: ASPIRIN 81 MG CHEW TAB PO SCH (08:47)
[2017-07-26] MEDS: SODIUM CHLORIDE 0.9% FLUSH 10 ML FLUSH IV FLUSH SCH ×2 (08:48→20:30)
[2017-07-26] MEDS: FUROSEMIDE 40 MG/4 ML VIAL IV PUSH SCH ×2 (08:48→16:58)
[2017-07-26] MEDS: MORPHINE SULFATE 15 MG TAB PO SCH ×5 (08:48→22:00)
[2017-07-26] MEDS: DOCUSATE SODIUM 50 MG/SENNA 8.6 MG TAB PO SCH ×2 (08:49→20:30)
[2017-07-26] MEDS: CARVEDILOL 12.5 MG TAB PO SCH ×2 (08:55→20:30)
[2017-07-26] MEDS ORDERED: METOLAZONE 5 MG TAB PO SCH (09:00)
[2017-07-26] MEDS ORDERED: FUROSEMIDE 80 MG TAB PO SCH (09:00)
[2017-07-26] MEDS: predniSONE 10 MG TAB PO SCH ×2 (09:00→20:30)
[2017-07-26] MEDS ORDERED: DIGOXIN 0.125 MG TAB PO SCH (09:00)
[2017-07-26] MEDS ORDERED: AMIODARONE 200 MG TAB PO SCH (09:00)
[2017-07-26] MEDS ORDERED: predniSONE 20 MG TAB PO SCH (09:00)
--- NOTE | 2017-07-26 09:46 | PD.CONS ---
HPI Service Nephrology Consult Requested By Dr. Lyle Reason for Consult FRANCISCO on CKD Primary Care Physician Di Dutton D.O. History of Present Illness Patient is a 66-year-old male with a past medical history significant for hypertension, atrial fibrillation anticoagulated on Coumadin, coronary artery disease status post CABG 3 on 07/01/17, peripheral vascular disease, hepatitis C, cirrhosis, diabetes mellitus, CKD, and chronic back pain. Presents to the emergency department for evaluation for SOB. Patient is on BIPAP with nitroglycerin gtt. The patient was discharged from [facility] on to [facility]. Nephrology was consulted for worsening renal indices patients baseline creatinine is 1.50, patient has stage 3 CKD. Creatinine was found to be 2.40 and a GFR of 27 ml/min. During his stay at [facility] he was aggressive diuresed for increased lower extremity. (Corinne Vizcaino) Past Family Social History Allergies: Coded Allergies: Sulfa (Sulfonamide Antibiotics) (Verified Allergy, Severe, Itching, Elevated Blood Pressure, SOB, 06/23/17) sulfamethoxazole (Verified Allergy, Severe, Elevated blood pressure, Generalized itching, 06/23/17) trimethoprim (Verified Allergy, Severe, Elevated blood pressure, Generalized itching, 06/23/17) MRI PRECAUTION (Verified Adverse Reaction, Severe, PACEMAKER KD NOT REVO, 06/23/17) Past Medical History Hypertension Atrial fibrillation on Coumadin CAD s/p NSTEMI and CABG 07/01/17 CHF with EF 30-35% CKD stage III PVD History of left BKA Status post AICD/pacemaker implant Hepatitis C Cirrhosis Diabetes Chronic back pain Past Surgical History Hypertension Atrial fibrillation on Coumadin CAD s/p NSTEMI and CABG 07/01/17 CABG x 3 07/01/17 AAA repair Right CEA AICD/pacemaker implant 2016 Left BKA Right toe amputation 5 digits Active Ordered Medications Current Medications Medications (Trade) Dose Ordered Sig/Kelly Route Start Time Stop Time Status Last Admin (NS Flush) 2 ml UNSCH PRN IVF 07/26/17 04:00 (Aspirin Chew) 81 mg DAILY PO 07/26/17 09:00 07/26/17 08:47 (Lipitor) 80 mg HS PO 07/26/17 21:00 (Coreg) 12.5 mg BID PO 07/26/17 09:00 07/26/17 08:55 (Levemir Inj) 12 units HS SQ 07/26/17 21:00 (Protonix) 40 mg BID PO 07/26/17 09:00 07/26/17 08:47 (Coumadin) 6 mg DAILY@1600 PO 07/26/17 16:00 (Msir) 15 mg 5 TIMES A DAY PO 07/26/17 06:00 07/26/17 08:48 (D50w (Vial) Inj) 50 ml UNSCH PRN IV PUSH 07/26/17 05:45 (Glucagon Inj) 1 mg UNSCH PRN OTHER 07/26/17 05:45 (NovoLOG SUPPLEMENTAL SCALE) 1 ACHS SLIDING SCALE SQ 07/26/17 08:00 07/26/17 08:00 (Lasix Inj) 40 mg BID@09,18 IV PUSH 07/26/17 09:00 07/26/17 08:48 (NS Flush) 2 ml UNSCH PRN IV FLUSH 07/26/17 05:45 (NS Flush) 2 ml BID IV FLUSH 07/26/17 09:00 07/26/17 08:48 (Tylenol) 650 mg Q4H PRN PO 07/26/17 05:45 (Zofran Inj) 4 mg Q6H PRN IVP 07/26/17 05:45 (Narcan Inj) 0.4 mg UNSCH PRN IV PUSH 07/26/17 05:45 (Jess-Colace) 1 tab BID PO 07/26/17 09:00 07/26/17 08:49 (Milk Of Magnesia Liq) 30 ml Q12H PRN PO 07/26/17 05:45 (Senokot) 17.2 mg Q12H PRN PO 07/26/17 05:45 (Dulcolax Supp) 10 mg DAILY PRN RECTAL 07/26/17 05:45 (Lactulose Liq) 30 ml DAILY PRN PO 07/26/17 05:45 (Coumadin Booklet) 1 ONCE ONCE OTHER 07/26/17 16:00 07/26/17 16:01 Azithromycin 500 mg/Sodium Chloride 250 ml @ 250 mls/hr Q24H IV 07/27/17 06:00 Cefepime HCl 1000 mg/Sodium Chloride 100 ml @ 200 mls/hr Q8H IV 07/26/17 12:30 (Deltasone) 10 mg BID PO 07/26/17 09:00 UNV Family History Mother from breast cancer, had CAD and diabetes father from Heart disease Social History Smokes 1/2 to 1 pk of cigarettes per day History of alcoholism Lives alone and disabled Currently at [facility] rehab post cabg (Corinne Vizcaino) Physical Exam Vital Signs Vital Signs Date Time Temp Pulse Resp B/P (MAP) Pulse Ox O2 Delivery O2 Flow Rate FiO2 07/26/17 07:33 100 40 07/26/17 05:33 100 40 07/26/17 05:10 100 Nasal Cannula 2.00 07/26/17 04:00 97.8 70 22 187/89 (121) 94 07/26/17 03:59 54 214/93 07/26/17 03:49 95 60 07/26/17 03:49 95 BiPAP 60 07/26/17 03:45 94 BiPAP 07/26/17 03:45 70 22 94 CPAP 07/26/17 03:45 22 100 BiPAP Physical Exam GENERAL: Alert and oriented SKIN: Cool and dry. Discoloration right lower extremity. HEAD: Atraumatic. Normocephalic. No temporal or scalp tenderness. EYES: Pupils equal round and reactive. Extraocular motions intact. No scleral icterus. No injection or drainage. ENT: Nose without bleeding or purulent drainage. Airway patent. NECK: Trachea midline. No lymphadenopathy. Supple, nontender, no meningeal signs. CARDIOVASCULAR: Regular rate and rhythm without murmurs, gallops, or rubs. RESPIRATORY: Diminished air entry bilaterally. Bilateral crackles. No wheezes, rales, or rhonchi. GASTROINTESTINAL: Abdomen soft, non-tender, nondistended. No hepato-splenomegaly , or palpable masses. No guarding. MUSCULOSKELETAL: Status post left BKA. 2-3+ edema in the right lower extremity. NEUROLOGICAL: Awake and alert. Normal speech. Laboratory Laboratory Tests Test 07/26/17 03:50 07/26/17 04:52 White Blood Count 20.9 Red Blood Count 3.24 Hemoglobin 9.9 Hematocrit 28.4 Mean Corpuscular Volume 87.6 Mean Corpuscular Hemoglobin 30.5 Mean Corpuscular Hemoglobin Concent 34.8 Red Cell Distribution Width 17.6 Platelet Count 292 Mean Platelet Volume 8.4 Neutrophils (%) (Auto) 80.8 Lymphocytes (%) (Auto) 10.7 Monocytes (%) (Auto) 8.1 Eosinophils (%) (Auto) 0.1 Basophils (%) (Auto) 0.3 Neutrophils # (Auto) 16.9 Lymphocytes # (Auto) 2.2 Monocytes # (Auto) 1.7 Eosinophils # (Auto) 0.0 Basophils # (Auto) 0.1 CBC Comment AUTO DIFF Differential Comment AUTO DIFF CONFIRMED Platelet Estimate NORMAL Platelet Morphology Comment NORMAL Prothrombin Time 18.9 Prothromb Time International Ratio 1.9 Activated Partial Thromboplast Time 29.6 Blood Urea Nitrogen 102 Creatinine 2.40 Random Glucose 188 Total Protein 9.0 Albumin 4.7 Calcium Level 9.3 Magnesium Level 2.6 Alkaline Phosphatase 151 Aspartate Amino Transf (AST/SGOT) 41 Alanine Aminotransferase (ALT/SGPT) 30 Total Bilirubin 1.9 Sodium Level 129 Potassium Level 3.9 Chloride Level 82 Carbon Dioxide Level 38.9 Anion Gap 8 Estimat Glomerular Filtration Rate 27 Total Creatine Kinase 94 Troponin I 0.15 B-Type Natriuretic Peptide 902 Digoxin Level 2.3 Blood Gas Puncture Site LT RADIAL Blood Gas Patient Temperature 98.6 Blood Gas HCO3 39 Blood Gas Base Excess 14.8 Blood Gas Oxygen Saturation 97 Arterial Blood pH 7.49 Arterial Blood Partial Pressure CO2 53 Arterial Blood Partial Pressure O2 234 Arterial Blood Oxygen Content 12.4 Arterial Blood Carboxyhemoglobin 3.0 Arterial Blood Methemoglobin 0.5 Blood Gas Hemoglobin 8.7 Oxygen Delivery Device BiPAP Blood Gas Ventilator Setting IPAP15 / EPAP5 Blood Gas Inspired Oxygen 60 (Corinne Vizcaino) Result Diagram: 07/26/17 0350 07/26/17349 Imaging Last Impressions Chest X-Ray 07/26/17347 Signed Impressions: Service Date/Time: Wednesday, July 26, 2017 03:56 - CONCLUSION: Findings most characteristic of congestive heart failure. Ashvin Shankar MD (Corinne Vizcaino) Assessment and Plan Problem List: (1) FRANCISCO (acute kidney injury) ICD Codes: N17.9 - Acute kidney injury Status: Acute Plan: FRANCISCO on CKD stage 3 FRANCISCO possible related to prerenal azotemia from diuresis CKD most likely form Diabetic nephropathy UA with 3 + protein. Creatinine 2.40 and GFR 27ml/min HTN on nitroglycerin gtt Bipap at 40 % Plan Contine glass to SD to maintain strict I+o Continue lasix 40 mg IV BID Will monitor labs and UOP (2) HTN (hypertension) ICD Codes: I10 - Essential (primary) hypertension (3) Diabetes mellitus ICD Codes: E11.9 - Diabetes mellitus Status: Acute (4) Chronic hyponatremia ICD Codes: E87.1 - Chronic hyponatremia Status: Acute (5) Chronic systolic CHF (congestive heart failure) ICD Codes: I50.22 - Chronic systolic congestive heart failure Status: Acute (Corinne Vizcaino) Problem List: (1) FRANCISCO (acute kidney injury) ICD Codes: N17.9 - Acute kidney injury Status: Acute Plan: FRANCISCO on CKD stage 3 FRANCISCO possible related to prerenal azotemia from diuresis CKD most likely form Diabetic nephropathy UA with 3 + protein. Creatinine 2.40 and GFR 27ml/min HTN on nitroglycerin gtt Bipap at 40 % Plan Continue Glass to SD to maintain strict I+o Continue Lasix 40 mg IV BID Will monitor labs and UOP. Patient seen and examined, agree with above. Patient was re admitted with fluid overload. He has chronic kidney disease, and develop FRANCISCO. Continue Lasix, follow the urine out put and BMP. (2) HTN (hypertension) ICD Codes: I10 - Essential (primary) hypertension (3) Diabetes mellitus ICD Codes: E11.9 - Diabetes mellitus Status: Acute (4) Chronic hyponatremia ICD Codes: E87.1 - Chronic hyponatremia Status: Acute (5) Chronic systolic CHF (congestive heart failure) ICD Codes: I50.22 - Chronic systolic congestive heart failure Status: Acute (Jai Godinez MD) Corinne Vizcaino Jul 26, 2017 09:46 Jai Godinez MD Jul 26, 2017 17:25
--- NOTE | 2017-07-26 10:12 | MB ---
cc: SALIMA BORREGO M.D. DATE OF CONSULTATION: 07/26/2017 REASON FOR CONSULTATION: Respiratory failure, congestive heart failure. HISTORY OF PRESENT ILLNESS Mr. Resendiz is a 66-year-old male with known history of diabetes mellitus, hypertension, liver cirrhosis, hepatitis C, coronary artery disease post bypass surgery. He is on Coumadin as well for atrial fibrillation. [facility] return with increasing shortness of breath, respiratory failure and chest x-ray evidence of pulmonary edema. The patient presently on BiPap therapy. He has past medical history is that of diabetes mellitus, hypertension, atrial fibrillation coronary artery disease, congestive heart failure, chronic kidney disease, peripheral vascular disease status post bilateral amputation. Hepatitis C, liver cirrhosis. FAMILY HISTORY Noncontributory. REVIEW OF SYSTEMS 12-point review of systems as per HPI, past history otherwise negative. MEDICATIONS Includes; 1. Pain meds for his back pain 2. Metolazone 3. Lasix 4. Nebulized Albuterol. 5. Ipratropium. 6. Prednisone 7. Levemir. 8. Tylenol. 9. Pantoprazole. 10. Digoxin. 11. Coumadin. 12. Atorvastatin. 13. Coreg ALLERGIES SULFA DRUGS PHYSICAL EXAMINATION: IN GENERAL: The patient is alert on BiPAP therapy, temperature 97.8, pulse 70, respiration 22, blood pressure 180/93. Oxygen saturation 96% on BiPap therapy 40% inspired oxygen fraction. HEAD, EYES, EARS, NOSE, AND THROAT: Exam unremarkable. Eyes without icterus. NECK: Neck with adenopathy or thyroid enlargement. Central trachea. CHEST: Rales at both bases. CARDIOVASCULAR SYSTEM: Irregularity noted. ABDOMEN: Obese, lax, bowel sounds audible. EXTREMITIES: Bilateral amputation. LABORATORY DATA White count 20,000, hemoglobin 9.9, hematocrit 28, sodium 129, potassium 3.9. BUN 102, creatinine 2.4, Arterial blood gas pH 749, pCO2 53, pO2 234, 60% inspired oxygen fraction, BiPap 15/5. IMPRESSION 1. Respiratory failure 2. Congestive heart failure. 3. Obesity 4. Diabetes mellitus 5. Hypertension 6. Chronic kidney disease 7. Coronary artery disease. 8. Atrial fibrillation. 9. Peripheral vascular disease. 10. Peripheral vascular disease. 11. Status post bilateral amputation. PLAN The patient will be maintained on oxygen therapy, BiPap therapy as needed. Intubation, mechanical ventilation will be undertaken should that become necessary. Therapy for underlying congestive heart failure and diuresis would be helpful, cardiology and nephrology to follow the patient for underlying cardiac and renal disease. We will follow his course along with you and depending on progress proceed further. I do thank you for asking me to partake in Mr. Resendiz's care. Sincerely, Salima Borrego MD WWW/ /9:03 AM /9:12 AM
[2017-07-26] MEDS ORDERED: NITROGLYCERIN-DEXTROSE 5% 250 ML for hypertension IV PRN (11:00)
--- NOTE | 2017-07-26 11:28 | ECHRPT ---
Indication: HEART FAILURE CONCLUSIONS Technically difficult study. In limited views, the left ventricular ejection fraction is reduced, difficult to determine true eje ction fraction. There was limited left ventricular wall motion assessment due to poor endocardial visualization, but probable akinesis of the distal anterior and apical jones. Ssbe-yb-wtnxgggx mitral valve regurgitation. There is moderate tricuspid regurgitation. A left sided pleural effusion is present. BP: 187 / 89 HR: 70 Rhythm: Sinus MEASUREMENTS (Male / Female) Normal Values Technical Quality:Technically difficult study 2D ECHO LV Diastolic Diameter PLAX 3.7 cm 4.2 - 5.9 / 3.9 - 5.3 cm LV Systolic Diameter PLAX 2.8 cm IVS Diastolic Thickness 1.1 cm 0.6 - 1.0 / 0.6 - 0.9 cm LVPW Diastolic Thickness 1.1 cm 0.6 - 1.0 / 0.6 - 0.9 cm LV Relative Wall Thickness 0.6 RV Internal Dim ED PLAX 3.4 cm LVOT Diameter 1.8 cm Aortic Root Diameter 2.7 cm LA Systolic Diameter LX 4.6 cm 3.0 - 4.0 / 2.7 - 3.8 cm M-MODE AV Cusp Separation MM 1.8 cm DOPPLER AV Peak Velocity 136.0 cm/s AV Peak Gradient 7.4 mmHg AV Mean Gradient 4.0 mmHg AV Velocity Time Integral 25.6 cm LVOT Peak Velocity 72.9 cm/s LVOT Peak Gradient 2.1 mmHg LVOT Velocity Time Integral 14.3 cm AV Area Cont Eq vti 1.4 cm AV Area Cont Eq pk 1.4 cm Mitral E Point Velocity 117.0 cm/s Mitral A Point Velocity 34.1 cm/s Mitral E to A Ratio 3.4 LV E' Lateral Velocity 8.4 cm/s Mitral E to LV E' Lateral Ratio 14.0 LV E' Septal Velocity 6.6 cm/s Mitral E to LV E' Septal Ratio 17.6 TR Peak Velocity 434.0 cm/s TR Peak Gradient 75.3 mmHg Right Atrial Pressure 10.0 mmHg Pulmonary Artery Systolic Pressu 85.3 mmHg Right Ventricular Systolic Press 85.3 mmHg PV Peak Velocity 75.2 cm/s PV Peak Gradient 2.3 mmHg FINDINGS LEFT VENTRICLE Normal left ventricular size. Mild concentric left ventricular hypertrophy. In limited views, the left ventricular ejection fraction is reduced, difficult to determine true eje ction fraction. There was limited left ventricular wall motion assessment due to poor endocardial visualization, but probable akinesis of the distal anterior and apical jones RIGHT VENTRICLE The right ventricle is moderately dilated. A pacemaker wire is noted. LEFT ATRIUM The left atrial size is shoevotd-xk-smuapqor dilated. RIGHT ATRIUM The right atrial size is moderately dilated. ATRIAL SEPTUM No atrial level shunt is demonstrated by color flow Doppler interrogation. AORTA The aortic root and proximal ascending aorta are not well visualized. MITRAL VALVE Grossly normal mitral valve Opls-ir-zrrvaxvk mitral valve regurgitation. No mitral valve stenosis. AORTIC VALVE Grossly normal aortic valve. No aortic valve stenosis or regurgitation. TRICUSPID VALVE Grossly normal tricuspid valve. There is moderate tricuspid regurgitation. The estimated pulmonary arterial pressure is 85.3 mmHg. PULMONARY VALVE No pulmonary valve regurgitation or stenosis. VESSELS The inferior vena cava is normal in size. PERICARDIUM No pericardial effusion. A left sided pleural effusion is present. Júnior Marcial DO (Electronically Signed) Final Date:26 July 2017 11:27
[2017-07-26] MEDS: CEFEPIME INJ 1,000 MG in SODIUM CHLORIDE 0.9% INJ 100 ML IV SCH ×2 (11:29→20:30)
[2017-07-26] MEDS ORDERED: MORPHINE SULFATE 2 MG/ML INJ IV PUSH ONE (11:30)
--- NOTE | 2017-07-26 11:35 | PD.CONS ---
[facility] Service Critical Care Medicine Consult Requested By CV Surgery Reason for Consult Hypoxemic respiratory failure, CHF Primary Care Physician Di Dutton D.O. History of Present Illness History of Present Illness This is a 66-year-old male with a PMH significant for hypertension, atrial fibrillation anticoagulated on Coumadin, CAD, S/P CABG 3 on 07/01/17, PVD , hepatitis C, cirrhosis, diabetes mellitus, CKD, and chronic back pain. Actively the patient was transferred to [facility], and yesterday 07/25/2017 the patient was transferred to [facility]. Patient presented to the ED, for evaluation for SOB, and chest pain. The patient was noted to be hypertensive systolic blood pressures 200's. Patient was placed on BiPAP and nitroglycerin infusion. Imaging and laboratory studies were performed in the ED patient was noted to be in CHF with difficulty in elevation in creatinine, the previous noted baseline of 1.5, now 2.4. Nephrology was consulted, patient has stage 3 CKD. Per report , during his stay at [facility] he was aggressive diuresed for increased lower extremity. Pulmonology was also consulted. Echo was performed this a.m. results are pending, preliminary report large pleural effusions noted. Critical care medicine was consulted. Patient complained at that time on upon initial evaluation chest pain 8/10, IV morphine provided, nitroglycerin infusion continued. Past Family Social History Allergies: Coded Allergies: Sulfa (Sulfonamide Antibiotics) (Verified Allergy, Severe, Itching, Elevated Blood Pressure, SOB, 06/23/17) sulfamethoxazole (Verified Allergy, Severe, Elevated blood pressure, Generalized itching, 06/23/17) trimethoprim (Verified Allergy, Severe, Elevated blood pressure, Generalized itching, 06/23/17) MRI PRECAUTION (Verified Adverse Reaction, Severe, PACEMAKER KD NOT REVO, 06/23/17) Past Medical History Hypertension Atrial fibrillation on Coumadin CAD s/p NSTEMI and CABG 07/01/17 CHF with EF 30-35% CKD stage III PVD History of left BKA Status post AICD/pacemaker implant Hepatitis C Cirrhosis Diabetes Chronic back pain Past Surgical History Hypertension Atrial fibrillation on Coumadin CAD s/p NSTEMI and CABG 07/01/17 CABG x 3 07/01/17 AAA repair Right CEA AICD/pacemaker implant 2016 Left BKA Right toe amputation 5 digits Family History Mother from breast cancer, had CAD and diabetes father from Heart disease Social History Smokes 1/2 to 1 pk of cigarettes per day History of alcoholism Lives alone and disabled Currently at [facility] rehab post cabg Review of Systems ROS Limitations: Clinical Condition Physical Exam Vital Signs Vital Signs Date Time Temp Pulse Resp B/P (MAP) Pulse Ox O2 Delivery O2 Flow Rate FiO2 07/26/17 10:36 100 40 07/26/17 07:33 100 40 07/26/17 07:00 60 178/81 07/26/17 05:33 100 40 07/26/17 05:10 100 Nasal Cannula 2.00 07/26/17 04:00 97.8 70 22 187/89 (121) 94 07/26/17 03:59 54 214/93 07/26/17 03:49 95 60 07/26/17 03:49 95 BiPAP 60 07/26/17 03:45 94 BiPAP 07/26/17 03:45 70 22 94 CPAP 07/26/17 03:45 22 100 BiPAP Physical Exam GENERAL: This is a well-developed well-nourished male looking older than stated age, in moderate distress, currently on BiPAP SKIN: Warm and dry. Venous stasis noted, lower extremity HEAD: Atraumatic. Normocephalic. EYES: Pupils equal and round. No scleral icterus. No injection or drainage. ENT: No nasal bleeding or discharge. Mucous membranes pink and moist. Currently on BiPAP NECK: Trachea midline. No JVD. CARDIOVASCULAR: Normal rate, regular rhythm. Well-healed midline chest incision , with Steri-Strips intact. Left chest pacemaker noted RESPIRATORY: No accessory muscle use. Clear to auscultation. Breath sounds equal bilaterally. GASTROINTESTINAL: Abdomen soft, non-tender, nondistended. No guarding. MUSCULOSKELETAL: Extremities without clubbing, cyanosis, edema noted bilateral lower extremity. Left BKA, right forefoot amputation. Left thigh Steri-Strips appear C/D/I NEUROLOGICAL: Awake and alert. RASS 0. No gross focal/sensory deficits. Follows commands in all 4 extremities. Laboratory Laboratory Tests Test 07/26/17 03:50 07/26/17 04:52 White Blood Count 20.9 Red Blood Count 3.24 Hemoglobin 9.9 Hematocrit 28.4 Mean Corpuscular Volume 87.6 Mean Corpuscular Hemoglobin 30.5 Mean Corpuscular Hemoglobin Concent 34.8 Red Cell Distribution Width 17.6 Platelet Count 292 Mean Platelet Volume 8.4 Neutrophils (%) (Auto) 80.8 Lymphocytes (%) (Auto) 10.7 Monocytes (%) (Auto) 8.1 Eosinophils (%) (Auto) 0.1 Basophils (%) (Auto) 0.3 Neutrophils # (Auto) 16.9 Lymphocytes # (Auto) 2.2 Monocytes # (Auto) 1.7 Eosinophils # (Auto) 0.0 Basophils # (Auto) 0.1 CBC Comment AUTO DIFF Differential Comment AUTO DIFF CONFIRMED Platelet Estimate NORMAL Platelet Morphology Comment NORMAL Prothrombin Time 18.9 Prothromb Time International Ratio 1.9 Activated Partial Thromboplast Time 29.6 Blood Urea Nitrogen 102 Creatinine 2.40 Random Glucose 188 Total Protein 9.0 Albumin 4.7 Calcium Level 9.3 Magnesium Level 2.6 Alkaline Phosphatase 151 Aspartate Amino Transf (AST/SGOT) 41 Alanine Aminotransferase (ALT/SGPT) 30 Total Bilirubin 1.9 Sodium Level 129 Potassium Level 3.9 Chloride Level 82 Carbon Dioxide Level 38.9 Anion Gap 8 Estimat Glomerular Filtration Rate 27 Total Creatine Kinase 94 Troponin I 0.15 B-Type Natriuretic Peptide 902 Digoxin Level 2.3 Blood Gas Puncture Site LT RADIAL Blood Gas Patient Temperature 98.6 Blood Gas HCO3 39 Blood Gas Base Excess 14.8 Blood Gas Oxygen Saturation 97 Arterial Blood pH 7.49 Arterial Blood Partial Pressure CO2 53 Arterial Blood Partial Pressure O2 234 Arterial Blood Oxygen Content 12.4 Arterial Blood Carboxyhemoglobin 3.0 Arterial Blood Methemoglobin 0.5 Blood Gas Hemoglobin 8.7 Oxygen Delivery Device BiPAP Blood Gas Ventilator Setting IPAP15 / EPAP5 Blood Gas Inspired Oxygen 60 Result Diagram: 07/26/17 0350 07/26/17 0350 Imaging Last Impressions Chest X-Ray 07/26/17 0348 Signed Impressions: Service Date/Time: Wednesday, July 26, 2017 03:56 - CONCLUSION: Findings most characteristic of congestive heart failure. Ashvin Shankar MD Septic Shock Reassessment Septic shock perfusion: reassessment completed Assessment and Plan Assessment and Plan Is a 66-year-old male with multiple comorbid conditions. The patient is status post CABG 07/01/17, currently in CHF with elevated BNP 902. Although the patient's FiO2 requirements are decreasing on BiPAP, the patient is at risk for intubation. Admit to ICU. Plan by systems: Neurologic: Chest pain Avoid sedative type medications Monitor neuro status-concern for CO2 narcosis Morphine IV 2mg to 4 hours PRN for pain scale 7-10 Tylenol for temp greater than 101.0 Respiratory: Acute hypoxemic and hypercapnic respiratory failure Maintain O2 sat greater than 92% Continue BiPAP currently 15/5 FIO2 .40% Duo nebs every 6 hours scheduled every 2 hours when necessary Pulmonary consulted Cardiovascular: CHF exacerbation Atrial fibrillation Hypertension S/P CABG 07/01/17 Pacemaker Elevated digoxin level Maintain MAP> 65mmHg Patient currently on nitroglycerin 30 mcgs CVS following 07/26- F/U ECHO-probable akinesis of distal anterior and apical jones, mild to moderate MR, moderate TR, left pleural effusion, left atrial moderately to severely dilated, right atrium moderately dilated, PAP 85.3 Obtain EKG Digoxin level 2.3-continue monitor, digoxin discontinued Continue atorvastatin, carvedilol, and aspirin Patient currently on Coumadin Renal: Acute on chronic kidney disease stage III Inaccuracy initially had condom catheter, will insert Smith for accurate I&O's , patient receiving diuretics Nephrology consulted- Dr. Godinez, follow-up recommendations Patient received Lasix 80 mg IV 1 dose, currently on Lasix 40 mg IV -- Strict I/Os FEN/GI: Hep-Lock IV NPO status patient is at risk for intubation Bowel regimen Zofran for nausea Heme/ID: Leukocytosis 07/26 F/U blood cultures INR 1.9, continue to monitor Continue cefepime and azithromycin (day 1) Endocrine: Diabetes mellitus -- SSI , low dose regimen Continue Levemir 12 units daily at bedtime Prophylaxis: GI Prophylaxis Famotidine DVT Prophylaxis -- SCDs PT presently on Coumadin Lines: Peripheral IVs 2. Central line if indicated Dispo: my billing statement This patient remains critically ill with one or more organ systems which are or may become a threat to life. I have spent in excess of 60 minutes discontinuously in the care and management of this patient. This time is exclusive of procedures, and includes, but is not limited to, evaluation of the patient, review of the medical record, discussions with family, consultants, nursing staff, or respiratory therapy, and documentation in the medical record. Code Status Full Discussed Condition With SUPERVISOR PREP at bedside Sharmaine Pinon MD Jul 26, 2017 11:35
[2017-07-26 11:45] LABS: BILIRUBIN, URINE NEG (NEG); BLOOD, URINE TRACE (NEG); GLUCOSE,URINE NEG (NEG); KETONE, URINE NEG (NEG); NITRITE,URINE NEG (NEG); SQUAMOUS EPITHELIAL CELL URINE <1 /hpf (0-5); URINE COLOR LIGHT-YELLOW (YELLW/STRAW); URINE LEUKOCYTE ESTERASE NEG (NEG)
--- NOTE | 2017-07-26 14:48 | PD.CAR.PN ---
CVT Progress Note Subjective/Hospital Course: 66 year-old male, patient of Dr. Del Toro, Dr. Di Dutton, presented to the emergency room with substernal chest pain on 06/23/2017, also with some shortness of breath, was noted to be severely hypertensive with a systolic blood pressure close to 200. He has an extensive cardiac background. 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 Troponin was 1.98 pounds. The patient underwent cardiac cath by for [id number] NC, showed an ejection fraction of 25%, 50% left ostial lesion, 95% proximal LAD. The diagonal had an 80% stenosis in the proximal lesion, the circ was 40%. The OM 90%. The RCA 50%. He also underwent 2-D echocardiogram, that showed an EF of 45%. He had some mild right atrial dilation, mild mitral valve regurgitation, tricuspid regurgitation. We were consulted to evaluate for coronary artery bypass grafting. PMH: chronic atrial fibrillation on Coumadin, hypertension, congestive heart failure with prior EF of 30-35, EF per cath was 25%. He has an ICD placement on the left upper chest, diabetes mellitus, chronic back pain. HX femoral aortic aneurysm, hepatitis C, liver cirrhosis, chronic back pain, Peripheral arterial disease. PAST SURGICAL HISTORY: ICD placement, Left hidqs-ukj-cjag amputation, Amputation of the right forefoot, Right carotid endarterectomy, Liver biopsy, Abdominal aortic aneurysm repair. surgery: CABG x 3, BUSCH to LAD - fair, SVG to OM1 - fair, SVG to D1 - poor, EVH (R) post op course included wide complex tachycardia , FRANCISCO , afib, diuresed well then transferred to [place] rehab 07/06 then dc to [facility] on 07/25 lasted short time, became very SOB and wa re- admitted to [facility] for CHF exacerbation / hypoxemia requiring BIPAP ventilation BNP 905, trop 0.15 CXR: small bilateral effusion and evidence of Heart failure / he has been aggressively diuresed and is now being followed by [facility] and nephrology ECHO: reduced EF ( was 45 at last admission, , no pericardial effusion, small left pleural effusion ) pt is responding to diuresis , nephro consulted regarding CKD, FRANCISCO appreciate CCM would recommend transfer to , wean off steroids continue anticoagulation Objective: GENERAL: A&O x 3 / wearing Bipap mask , NTG gtt SKIN: Warm and dry. sternal incision healing well , left AKA + 2 edema right lower leg HEAD: Atraumatic. Normocephalic. EYES: Pupils equal and round. No scleral icterus. No injection or drainage. ENT: No nasal bleeding or discharge. Mucous membranes pink and moist. NECK: Trachea midline. No JVD. CARDIOVASCULAR: irregular rate and rhythm, intermittent v paced RESPIRATORY: No accessory muscle use. Clear to auscultation. Breath sounds equal bilaterally. few basilar crackles GASTROINTESTINAL: Abdomen soft, non-tender, nondistended. Hepatic and splenic margins not palpable. MUSCULOSKELETAL: Extremities without clubbing, cyanosis, + edema. No obvious deformities. NEUROLOGICAL: Awake and alert. No obvious cranial nerve deficits. Motor grossly within normal limits. Five out of 5 muscle strength in the arms and legs. Normal speech. PSYCHIATRIC: Appropriate mood and affect; insight and judgment normal. Vital Signs Date Time Temp Pulse Resp B/P (MAP) Pulse Ox O2 Delivery O2 Flow Rate FiO2 07/26/17 14:00 100 40 07/26/17 14:00 60 07/26/17 13:36 60 125/65 07/26/17 12:17 60 152/73 07/26/17 12:00 60 07/26/17 12:00 97.4 60 22 132/69 (90) 99 07/26/17 10:36 100 40 07/26/17 10:00 60 172/77 07/26/17 10:00 60 07/26/17 08:00 97.1 60 24 178/81 (113) 100 07/26/17 08:00 60 07/26/17 07:33 100 40 07/26/17 07:00 60 178/81 07/26/17 05:33 100 40 07/26/17 05:10 100 Nasal Cannula 2.00 07/26/17 04:00 97.8 70 22 187/89 (121) 94 07/26/17 03:59 54 214/93 07/26/17 03:49 95 60 07/26/17 03:49 95 BiPAP 60 07/26/17 03:45 94 BiPAP 07/26/17 03:45 70 22 94 CPAP 07/26/17 03:45 22 100 BiPAP Labs: Laboratory Tests Test 2/20/18 03:50 07/26/17 04:52 07/26/17 11:00 White Blood Count 20.9 TH/MM3 (4.0-11.0) Red Blood Count 3.24 MIL/MM3 (4.50-5.90) Hemoglobin 9.9 GM/DL (13.0-17.0) Hematocrit 28.4 % (39.0-51.0) Mean Corpuscular Volume 87.6 FL (80.0-100.0) Mean Corpuscular Hemoglobin 30.5 PG (27.0-34.0) Mean Corpuscular Hemoglobin Concent 34.8 % (32.0-36.0) Red Cell Distribution Width 17.6 % (11.6-17.2) Platelet Count 292 TH/MM3 (150-450) Mean Platelet Volume 8.4 FL (7.0-11.0) Neutrophils (%) (Auto) 80.8 % (16.0-70.0) Lymphocytes (%) (Auto) 10.7 % (9.0-44.0) Monocytes (%) (Auto) 8.1 % (0.0-8.0) Eosinophils (%) (Auto) 0.1 % (0.0-4.0) Basophils (%) (Auto) 0.3 % (0.0-2.0) Neutrophils # (Auto) 16.9 TH/MM3 (1.8-7.7) Lymphocytes # (Auto) 2.2 TH/MM3 (1.0-4.8) Monocytes # (Auto) 1.7 TH/MM3 (0-0.9) Eosinophils # (Auto) 0.0 TH/MM3 (0-0.4) Basophils # (Auto) 0.1 TH/MM3 (0-0.2) CBC Comment AUTO DIFF Differential Comment AUTO DIFF CONFIRMED Platelet Estimate NORMAL (NORMAL) Platelet Morphology Comment NORMAL (NORMAL) Prothrombin Time 18.9 SEC (9.8-11.6) Prothromb Time International Ratio 1.9 RATIO Activated Partial Thromboplast Time 29.6 SEC (24.3-30.1) Blood Urea Nitrogen 102 MG/DL (7-18) Creatinine 2.40 MG/DL (0.60-1.30) Random Glucose 188 MG/DL (74-106) Total Protein 9.0 GM/DL (6.4-8.2) Albumin 4.7 GM/DL (3.4-5.0) Calcium Level 9.3 MG/DL (8.5-10.1) Magnesium Level 2.6 MG/DL (1.5-2.5) Alkaline Phosphatase 151 U/L (45-117) Aspartate Amino Transf (AST/SGOT) 41 U/L (15-37) Alanine Aminotransferase (ALT/SGPT) 30 U/L (12-78) Total Bilirubin 1.9 MG/DL (0.2-1.0) Sodium Level 129 MEQ/L (136-145) Potassium Level 3.9 MEQ/L (3.5-5.1) Chloride Level 82 MEQ/L (98-107) Carbon Dioxide Level 38.9 MEQ/L (21.0-32.0) Anion Gap 8 MEQ/L (5-15) Estimat Glomerular Filtration Rate 27 ML/MIN (>89) Total Creatine Kinase 94 U/L (39-308) Troponin I 0.15 NG/ML (0.02-0.05) B-Type Natriuretic Peptide 902 PG/ML (0-100) Digoxin Level 2.3 NG/ML (0.8-2.0) Blood Gas Puncture Site LT RADIAL Blood Gas Patient Temperature 98.6 Blood Gas HCO3 39 mmol/L (22-26) Blood Gas Base Excess 14.8 mmol/L (-2-2) Blood Gas Oxygen Saturation 97 % (90-100) Arterial Blood pH 7.49 (7.380-7.420) Arterial Blood Partial Pressure CO2 53 mmHg (38-42) Arterial Blood Partial Pressure O2 234 mmHG (61-120) Arterial Blood Oxygen Content 12.4 Vol % (12.0-20.0) Arterial Blood Carboxyhemoglobin 3.0 % (0-4) Arterial Blood Methemoglobin 0.5 % (0-2) Blood Gas Hemoglobin 8.7 G/DL (12.0-16.0) Oxygen Delivery Device BiPAP Blood Gas Ventilator Setting IPAP15 / EPAP5 Blood Gas Inspired Oxygen 60 % Urine Color LIGHT-YELLOW (YELLW/STRAW) Urine Turbidity CLEAR (CLEAR) Urine pH 7.0 (5.0-8.5) Urine Specific [place] 1.008 (1.002-1.035) Urine Protein 30 mg/dL (NEG-TRACE) Urine Glucose (UA) NEG mg/dL (NEG) Urine Ketones NEG mg/dL (NEG) Urine Occult Blood TRACE (NEG) Urine Nitrite NEG (NEG) Urine Bilirubin NEG (NEG) Urine Urobilinogen LESS THAN 2.0 MG/DL (LESS Urine Leukocyte Esterase NEG (NEG) Urine RBC 8 /hpf (0-3) Urine WBC 1 /hpf (0-5) Urine Squamous Epithelial Cells <1 /hpf (0-5) Microscopic Urinalysis Comment CULT NOT INDICATED Result Diagram: 07/26/1734907/26/17349 (1) Ulcer of right heel (2) CKD (chronic kidney disease) stage 3, GFR 30-59 ml/min (3) DM (diabetes mellitus) Plan: on insulin ss (4) CAD (coronary artery disease) (5) A-fib (6) CHF (congestive heart failure) Plan: diuresis (7) Status post below knee amputation of left lower extremity (8) S/P CABG x 3 Plan: ASA, statin , BB continue pulm toileting recommend PT/ot when pulm status improved Problem Qualifiers (1) CHF (congestive heart failure): Qualified Codes: I50.9 - Heart failure, unspecified Nika Egan Jul 26, 2017 14:48
[2017-07-26 15:29] LABS: TROPONIN I 0.19 NG/ML (0.02-0.05)
--- NOTE | 2017-07-26 16:15 | PD.WCN.NOT ---
Wound Consult Description: Wound consult ordered by for right lateral foot ulcer Communicated with: Pako HOLLINGSWORTH [facility] Dr. Recommendation: 1) Encourage patient to elevate lower extremity to reduce edema/promote circulation. 2) Cleanse Right lower extremity with normal saline pat dry 3) Apply skin prep to dry Venous ulcers, If ulcers open apply Calazime cream cover with dry dressing BID 4) Please consult Vascular surgeon Additional Information: Patient seen today on 5th floor [facility] by sheet writer and Pako salmeron for Suzanne HOLLINGSWORTH.Patient alert in bed with c-pap on .Assessment of right lower extremity.Patient has 5 digit amputation discoloration (cyanosis) noted from 1 inch below knee down.Patient has 2 ulcers noted to Right lateral lower extremity.R lateral ulcer measures 1.0cm x1.0cm wound base is dry pink in color no drainage or odor noted.R distal lateral ulcer measures 0.5cm x 0.4cm wound base is dry and pink no odor or drainage noted.Ulcers are circular in shape no erythema noted to periwound.Right lower extremity cleansed with normal saline pat dry skin prep applied to ulcers and left open to air.Patient has BKA left amputation and would benefit from vascular surgeon consult. George Dunn [facility] Jul 26, 2017 16:15
[2017-07-26] MEDS: MORPHINE SULFATE 2 MG/ML INJ IV PUSH PRN (16:58)
[2017-07-26] MEDS: WARFARIN SOD 6 MG TAB PO SCH (16:59)
[2017-07-26 19:00] LABS: TROPONIN I 0.14 NG/ML (0.02-0.05)
--- NOTE | 2017-07-26 20:30 | EKG ---
Date Performed: 07/26/2017 Time Performed: 03:51:59 PTAGE: 66 years EKG: UNDERLYING ATRIAL FIBRILLATION WITH INTERMITTENT DEMAND PACING. BASED ON INTRINSIC RHYTHM P OSSIBLE ANTERIOR MYOCARDIAL INFARCTION ABNORMAL ECG PREVIOUS TRACING : 07/03/2017 22.36 WHEN COMPARED TO PRIOR TRACING THE PATIENT NOW HAS INTERMIT TENT DEMAND PACING. DOCTOR: Jesustia Mcginnis Interpretating Date/Time 07/26/2017 20:30:02
[2017-07-26] MEDS: ATORVASTATIN 80 MG TAB PO SCH (20:31)
[2017-07-26] MEDS: INSULIN DETEMIR 100 UNITS/ML VIAL SQ SCH (21:53)
[2017-07-27] VITALS (18 sets, daily range): BP systolic 118–151; BP diastolic 61–71; PULSE 59–60; RESP 12–20; TEMP 97.4–98.7; O2SAT 98–100
[2017-07-27] MEDS ORDERED: CHLORHEXIDINE GLUCONATE 2 % 1 PACK (2 CLOTHS)(extra cloths) TOPICAL PRN (02:45)
[2017-07-27] MEDS: CHLORHEXIDINE GLUCONATE 2 % 1 PACK (2 CLOTHS)(taper/protocol) TOPICAL SCH (04:00)
[2017-07-27] MEDS: MORPHINE SULFATE 2 MG/ML INJ IV PUSH PRN ×5 (04:05→20:49)
[2017-07-27] MEDS: CEFEPIME INJ 1,000 MG in SODIUM CHLORIDE 0.9% INJ 100 ML IV SCH ×3 (04:05→20:49)
--- NOTE | 2017-07-27 04:49 | RADRPT ---
EXAM DATE/TIME: 07/27/2017 03:19 [place] COMPARISON: CHEST SINGLE AP, July 26, 2017, 3:56. INDICATIONS : Short of breath. MEDICAL HISTORY : None. SURGICAL HISTORY : None. ENCOUNTER: Subsequent ACUITY: 2 days PAIN SCORE: 0/10 LOCATION: Bilateral chest FINDINGS: A single AP semierect view of the chest was obtained and demonstrates that the patient is status post median sternotomy. The left subclavian transvenous pacer remains in place. Airspace opacity remains in both lung bases with blunting of the costophrenic angles. The patient is status post median sterno sayda and there is moderate cardiomegaly. CONCLUSION: No significant change. The findings remain most consistent with congestive heart fail ure. Ashvin Shankar MD on July 27, 2017 at 4:47 Board Certified Radiologist. This report was verified electronically.
[2017-07-27] MEDS: AZITHROMYCIN INJ 500 MG in SODIUM CHLOR 0.9% 250 ML INJ 250 ML IV SCH (05:53)
[2017-07-27] MEDS: MORPHINE SULFATE 15 MG TAB PO SCH ×2 (05:53→08:42)
[2017-07-27 07:28] LABS: BASOPHIL % 0.1 % (0.0-2.0); EOSINOPHIL % 0.1 % (0.0-4.0); HEMATOCRIT 24.6 % (39.0-51.0); HEMOGLOBIN 8.1 GM/DL (13.0-17.0); LYMPH % 5.9 % (9.0-44.0); LYMPHOCYTE # 0.7 TH/MM3 (1.0-4.8); MEAN CELL VOLUME 87.6 FL (80.0-100.0); MEAN CORPUSCULAR HEMOGLOBIN 28.7 PG (27.0-34.0); MEAN CORPUSCULAR HGB CONC 32.8 % (32.0-36.0); MEAN PLATELET VOLUME 8.3 FL (7.0-11.0); MONO % 7.5 % (0.0-8.0); MONOCYTE # 0.9 TH/MM3 (0-0.9); NEUT % 86.4 % (16.0-70.0); PLATELET COUNT 217 TH/MM3 (150-450); RED BLOOD COUNT 2.81 MIL/MM3 (4.50-5.90); RED CELL DISTRIBUTION WIDTH 17.5 % (11.6-17.2); WHITE BLOOD COUNT 11.6 TH/MM3 (4.0-11.0)
[2017-07-27 07:53] LABS: ALBUMIN 3.9 GM/DL (3.4-5.0); ALT (GPT) 24 U/L (12-78); AST (GOT) 20 U/L (15-37); BICARBONATE 43.4 MEQ/L (21.0-32.0); BLOOD UREA NITROGEN 101 MG/DL (7-18); CALCIUM 9.2 MG/DL (8.5-10.1); CHLORIDE 84 MEQ/L (98-107); CREATININE 1.89 MG/DL (0.60-1.30); GLOMERULAR FILTRATION RATE 36 ML/MIN (>89); GLUCOSE,RANDOM 175 MG/DL (74-106); MAGNESIUM 2.4 MG/DL (1.5-2.5); PHOSPHORUS 4.2 MG/DL (2.5-4.9); SODIUM (NA) 133 MEQ/L (136-145)
[2017-07-27 08:07] LABS: ALKALINE PHOSPHATASE 124 U/L (45-117); DIGOXIN 2.2 NG/ML (0.8-2.0); TOTAL BILIRUBIN ADULT 2.1 MG/DL (0.2-1.0); TOTAL PROTEIN 7.8 GM/DL (6.4-8.2)
--- NOTE | 2017-07-27 08:24 | HHI.PR ---
Subjective Remarks ALERT SITTING IN BED ON BIPAP EXCELLENT DIURESIS Objective Vital Signs Date Time Temp Pulse Resp B/P (MAP) Pulse Ox O2 Delivery O2 Flow Rate FiO2 07/27/17 07:53 100 40 07/27/17 06:00 60 07/27/17 05:30 100 40 07/27/17 05:00 60 127/60 07/27/17 04:00 97.4 60 20 136/64 (88) 100 07/27/17 04:00 60 07/27/17 02:00 60 07/27/17 01:36 60 117/65 07/27/17 00:22 100 40 07/27/17 00:00 60 07/27/17 00:00 97.6 60 12 118/61 (80) 100 07/26/17 23:03 60 120/61 07/26/17 22:00 60 07/26/17 20:00 97.8 60 21 143/69 (93) 100 07/26/17 20:00 60 07/26/17 19:54 100 40 07/26/17 18:00 60 07/26/17 17:37 60 154/74 07/26/17 16:50 95 40 07/26/17 16:32 60 150/68 07/26/17 16:00 97.6 60 16 150/68 (95) 99 07/26/17 16:00 60 07/26/17 14:00 100 40 07/26/17 14:00 60 07/26/17 13:36 60 125/65 07/26/17 12:17 60 152/73 07/26/17 12:00 60 07/26/17 12:00 97.4 60 22 132/69 (90) 99 07/26/17 10:36 100 40 07/26/17 10:00 60 172/77 07/26/17 10:00 60 I/O 07/26/17 07/26/17 07/26/17 07/27/17 07/27/17 07/27/17 07:00 15:00 23:00 07:00 15:00 23:00 Intake Total 250 ml 337 ml 304 ml Output Total 2200 ml 1900 ml Balance 250 ml -1863 ml -1596 ml Intake IV Total 250 ml 337 ml 304 ml Output Urine Total 2200 ml 1900 ml # Bowel Movements 0 0 Result Diagram: 07/27/1752407/27/17524 Objective Remarks GENERAL: SKIN: Warm and dry. HEAD: Atraumatic. Normocephalic. EYES: Pupils equal and round. No scleral icterus. No injection or drainage. ENT: No nasal bleeding or discharge. Mucous membranes pink and moist. NECK: Trachea midline. No JVD. CARDIOVASCULAR: Regular rate and rhythm. RESPIRATORY: No accessory muscle use. decrease breath sounds at basis. GASTROINTESTINAL: Abdomen soft, non-tender, nondistended. Hepatic and splenic margins not palpable. MUSCULOSKELETAL: Extremities without clubbing, cyanosis, or edema. No obvious deformities. NEUROLOGICAL: Awake and alert. No obvious cranial nerve deficits. Motor grossly within normal limits. Five out of 5 muscle strength in the arms and legs. Normal speech. PSYCHIATRIC: Appropriate mood and affect; insight and judgment normal. Assessment and Plan Assessment and Plan respiratory failure CHF DM HTN CKD PLAN CONTINUE O2 DIAERESIS PULM TOILET F/U CXRAY Salima Borrego MD Jul 27, 2017 08:24
[2017-07-27] MEDS: INSULIN ASPART SUPPLEMENTAL SCALE SQ SCH ×4 (08:40→21:10)
[2017-07-27] MEDS: SODIUM CHLORIDE 0.9% FLUSH 10 ML FLUSH IV FLUSH SCH ×2 (08:40→20:50)
[2017-07-27] MEDS: FUROSEMIDE 40 MG/4 ML VIAL IV PUSH SCH ×2 (08:41→16:16)
[2017-07-27] MEDS: PANTOPRAZOLE SOD 40 MG DELAYED RELEASE TAB PO SCH ×2 (08:41→20:50)
[2017-07-27] MEDS: CARVEDILOL 12.5 MG TAB PO SCH ×2 (08:41→20:50)
[2017-07-27] MEDS: ASPIRIN 81 MG CHEW TAB PO SCH (08:41)
[2017-07-27] MEDS: DOCUSATE SODIUM 50 MG/SENNA 8.6 MG TAB PO SCH ×2 (08:41→20:50)
[2017-07-27] MEDS: predniSONE 10 MG TAB PO SCH ×2 (08:41→20:50)
--- NOTE | 2017-07-27 11:04 | HHI.NPPN ---
Subjective Complaints: Shortness of Breath Renal Failure: Chronic, Stage III History of Present Illness Patient is a 66-year-old male with a past medical history significant for hypertension, atrial fibrillation anticoagulated on Coumadin, coronary artery disease status post CABG 3 on 07/01/17, peripheral vascular disease, hepatitis C, cirrhosis, diabetes mellitus, CKD, and chronic back pain. Presents to the emergency department for evaluation for SOB. Patient is on BIPAP with nitroglycerin gtt. The patient was discharged from [facility] on to [facility]. Nephrology was consulted for worsening renal indices patients baseline creatinine is 1.50, patient has stage 3 CKD. Creatinine was found to be 2.40 and a GFR of 27 ml/min. During his stay at [facility] he was aggressive diuresed for increased lower extremity. Additional Remarks Patient remains of Bipap at 40 % continues to feel SOB. Moderate edema improvement noted (Corinne Vizcaino) Review of Systems General Constitutional: Fatigue (Corinne Vizcaino) Respiratory Lungs: SOB (Corinne Vizcaino) Cardiovascular Cardiac Remarks Denies CP (Corinne Vizcaino) Gastrointestinal GI Remarks No abdominal pain (Corinne Vizcaino) Objective Data Data 07/27/17 07/28/17 19:00 07:00 Intake Total 250 ml Balance 250 ml Intake IV Total 250 ml Vital Signs Date Time Temp Pulse Resp B/P (MAP) Pulse Ox O2 Delivery O2 Flow Rate FiO2 07/27/17 10:00 59 07/27/17 10:00 60 132/70 07/27/17 09:00 60 127/64 07/27/17 08:00 97.8 60 15 123/62 (82) 100 07/27/17 08:00 60 07/27/17 08:00 60 123/62 07/27/17 07:53 100 40 07/27/17 06:00 60 07/27/17 05:30 100 40 07/27/17 05:00 60 127/60 07/27/17 04:00 97.4 60 20 136/64 (88) 100 07/27/17 04:00 60 07/27/17 02:00 60 07/27/17 01:36 60 117/65 07/27/17 00:22 100 40 2/21/18 00:00 60 07/27/17 00:00 97.6 60 12 118/61 (80) 100 07/26/17 23:03 60 120/61 07/26/17 22:00 60 07/26/17 20:00 97.8 60 21 143/69 (93) 100 07/26/17 20:00 60 07/26/17 19:54 100 40 07/26/17 18:00 60 07/26/17 17:37 60 154/74 07/26/17 16:50 95 40 07/26/17 16:32 60 150/68 07/26/17 16:00 97.6 60 16 150/68 (95) 99 07/26/17 16:00 60 07/26/17 14:00 100 40 07/26/17 14:00 60 07/26/17 13:36 60 125/65 07/26/17 12:17 60 152/73 07/26/17 12:00 60 07/26/17 12:00 97.4 60 22 132/69 (90) 99 (Corinne Vizcaino) -: 07/27/17 0525 07/27/17 0525 Microbiology 07/26/17 Aerobic Blood Culture, Received Pending 07/26/17 Anaerobic Blood Culture, Received Pending 07/26/17 Aerobic Blood Culture, Received Pending 07/26/17 Anaerobic Blood Culture, Received Pending (Corinne Vizcaino) Physical Exam Eyes Eye Exam: Pupils Equal (Corinne Vizcaino) Neck Neck Exam: Neck Supple (Corinne Vizcaino) Pulmonary Resp Exam: Breath Sounds Equal, Decreased Bases (Corinne Vizcaino) Cardiology CV Exam: Regular, Normal Sinus Rhythm (Corinne Vizcaino) Gastrointestinal/Abdomen GI Exam: Soft, Non-Tender, Bowel Sounds Present (Corinne Vizcaino) Genitourinary Exam: Clear Urine, Flank Non-Tender (Corinne Vizcaino) Integumentary Skin Exam: Clear, Warm, Dry (Corinne Vizcaino) Extremeties Extremities Exam: Moderate Edema, Pitting Edema (Corinne Vizcaino) Neurologic Neuro Exam: Alert, Awake, Oriented (Corinne Vizcaino) Psychiatric Psych Exam: Appropriate Responses (Corinne Vizcaino) Assessment/Plan Problem List: (1) FRANCISCO (acute kidney injury) ICD Codes: N17.9 - Acute kidney injury Status: Acute Plan: FRANCISCO on CKD stage 3 Patient was re admitted with fluid overload. He has chronic kidney disease, and develop FRANCISCO. CKD most likely form Diabetic nephropathy UA with 3 + protein. HTN improving still on nitroglycerin gtt Bipap at 40 % Plan Continue Smith to SD to maintain strict I+o Edema improving with lasix Creatinine improving at 1.89 today baseline at 1.5 Continue Lasix, follow the urine out put and BMP. (2) HTN (hypertension) ICD Codes: I10 - Essential (primary) hypertension (3) Diabetes mellitus ICD Codes: E11.9 - Diabetes mellitus Status: Acute (4) Chronic hyponatremia ICD Codes: E87.1 - Chronic hyponatremia Status: Acute (5) Chronic systolic CHF (congestive heart failure) ICD Codes: I50.22 - Chronic systolic congestive heart failure Status: Acute (Corinne Vizcaino) Problem List: (1) FRANCISCO (acute kidney injury) ICD Codes: N17.9 - Acute kidney injury Status: Acute Plan: FRANCISCO on CKD stage 3 Patient was re admitted with fluid overload. He has chronic kidney disease, and develop FRANCISCO. CKD most likely form Diabetic nephropathy UA with 3 + protein. HTN improving still on nitroglycerin gtt Bipap at 40 % Plan Continue Smith to SD to maintain strict I+o Edema improving with lasix Creatinine improving at 1.89 today baseline at 1.5 Continue Lasix, follow the urine out put and BMP. Patient seen and examined, agree with above. Continue Lasix, Hgb. dropped, check iron study. (2) HTN (hypertension) ICD Codes: I10 - Essential (primary) hypertension (3) Diabetes mellitus ICD Codes: E11.9 - Diabetes mellitus Status: Acute (4) Chronic hyponatremia ICD Codes: E87.1 - Chronic hyponatremia Status: Acute (5) Chronic systolic CHF (congestive heart failure) ICD Codes: I50.22 - Chronic systolic congestive heart failure Status: Acute (Jai Godinez MD) Problem Qualifiers (1) HTN (hypertension): Qualified Codes: I10 - Essential (primary) hypertension Corinne Vizcaino Jul 27, 2017 11:04 Jai Godinez MD Jul 27, 2017 18:58
--- NOTE | 2017-07-27 14:33 | HHI.PR ---
Subjective Subjective Notes A 66-year-old gentleman known to me from previous encounters Full consult dictated Thanks J Objective Vitals/I&O Vital Signs Date Time Temp Pulse Resp B/P (MAP) Pulse Ox O2 Delivery O2 Flow Rate FiO2 07/27/17 12:17 60 132/69 07/27/17 08:00 97.8 15 100 07/27/17 07:53 40 07/26/17 05:10 Nasal Cannula 2.00 Labs Laboratory Tests Test 07/26/17 16:44 07/26/17 17:58 07/26/17 18:19 07/27/17 04:20 Blood Gas Puncture Site RT RADIAL RT RADIAL Blood Gas Patient Temperature 98.6 98.6 Blood Gas HCO3 41 42 Blood Gas Base Excess 16.3 17.1 Blood Gas Oxygen Saturation 95 95 Arterial Blood pH 7.47 7.50 Arterial Blood Partial Pressure CO2 57 54 Arterial Blood Partial Pressure O2 108 112 Arterial Blood Oxygen Content 11.0 12.0 Arterial Blood Carboxyhemoglobin 2.9 3.0 Arterial Blood Methemoglobin 1.4 0.9 Blood Gas Hemoglobin 8.1 8.8 Oxygen Delivery Device BIPAP BIPAP Blood Gas Ventilator Setting IPAP15/EPAP5 15/5 Blood Gas Inspired Oxygen 40 40 Troponin I 0.14 0.14 Total Creatine Kinase 59 Test 07/27/17 05:25 White Blood Count 11.6 Red Blood Count 2.81 Hemoglobin 8.1 Hematocrit 24.6 Mean Corpuscular Volume 87.6 Mean Corpuscular Hemoglobin 28.7 Mean Corpuscular Hemoglobin Concent 32.8 Red Cell Distribution Width 17.5 Platelet Count 217 Mean Platelet Volume 8.3 Neutrophils (%) (Auto) 86.4 Lymphocytes (%) (Auto) 5.9 Monocytes (%) (Auto) 7.5 Eosinophils (%) (Auto) 0.1 Basophils (%) (Auto) 0.1 Neutrophils # (Auto) 10.0 Lymphocytes # (Auto) 0.7 Monocytes # (Auto) 0.9 Eosinophils # (Auto) 0.0 Basophils # (Auto) 0.0 CBC Comment DIFF FINAL Differential Comment Blood Urea Nitrogen 101 Creatinine 1.89 Random Glucose 175 Total Protein 7.8 Albumin 3.9 Calcium Level 9.2 Phosphorus Level 4.2 Magnesium Level 2.4 Alkaline Phosphatase 124 Aspartate Amino Transf (AST/SGOT) 20 Alanine Aminotransferase (ALT/SGPT) 24 Total Bilirubin 2.1 Sodium Level 133 Potassium Level 3.5 Chloride Level 84 Carbon Dioxide Level 43.4 Anion Gap 6 Estimat Glomerular Filtration Rate 36 B-Type Natriuretic Peptide 734 Digoxin Level 2.2 Date/Time Source Procedure Growth Status 07/26/17 14:00 Blood Peripheral Aerobic Blood Culture - Preliminary NO GROWTH IN 1 DAY Resulted 07/26/17 14:00 Blood Peripheral Anaerobic Blood Culture - Preliminary NO GROWTH IN 1 DAY Resulted Damaris Blanchard MD Jul 27, 2017 14:33
--- NOTE | 2017-07-27 14:51 | MB ---
cc: DAMARIS HOLLAND MD DATE OF CONSULTATION 07/27/2017 REASON FOR CONSULTATION Small ulcer of the right leg, peripheral vascular disease, diabetes mellitus. HISTORY OF PRESENT DISEASE This 66-year-old gentleman is known from previous encounters. He presents at this time to the hospital with respiratory distress. He is currently in the medical ICU with a CPAP mask. He was noted to have small ulcers of the right leg and hence the consultation. PAST MEDICAL HISTORY 1. Hypertension. 2. Atrial fibrillation. 3. Coronary artery disease with an IA last year. 4. Peripheral vascular disease. 5. Hepatitis C. 6. Cirrhosis. PAST SURGICAL HISTORY 1. 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 2. Transmetatarsal amputation. 3. CABG. 4. Abdominal aortic aneurysm endovascular repair. 5. Multiple cardiac caths. MEDICATIONS Medications can be found in the chart. ALLERGIES SULFA. SOCIAL HISTORY The patient has smoked his entire adult age, about a pack a day, and used to drink very heavily until about 20 years ago. 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 PHYSICAL EXAMINATION GENERAL: A weak-appearing 66-year-old male. HEENT: Normocephalic. No trauma to the head. Pupils equal and reactive. Extraocular muscles intact. The patient has a BiPAP mask on. NECK: Bilateral carotid pulses. Bilateral faint bruits. There is a scar from previous carotid endarterectomy. CHEST: Bilateral breath sounds very decreased over both lung william. The patient has significant atrophy of the chest wall musculature consistent with pulmonary cachexia. HEART: Irregular rhythm. The patient is in controlled atrial fibrillation. ABDOMEN: Soft. No rebound. No guarding. No masses. EXTREMITIES: The patient has bilateral femoral pulses actually on palpation. On the left side the patient has a BKA. On the right side he has a transmetatarsal amputation. 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 There are two tiny ulcers in the lower leg, one medial and one lateral which measure about 0.5 cm in diameter. They are nicely granulating and clean. No therapy needs to be performed in those. IMPRESSION Patient with multiple medical problems, chronic venous insufficiency, stasis changes of the right leg and two tiny ulcers. This patient is not a surgical candidate for any type of procedure. No further work-up should be undertaken. Thank you very much for the referral. Critical care time 40 minutes. Damaris NUNEZ/BEN /2:23 PM /2:29 PM
--- NOTE | 2017-07-27 15:37 | EKG ---
Date Performed: 07/26/2017 Time Performed: 16:39:22 PTAGE: 66 years EKG: ELECTRONIC VENTRICULAR PACEMAKER ABNORMAL RHYTHM ECG PREVIOUS TRACING : 07/26/2017 03.51 DOCTOR: John Diggs Interpretating Date/Time 07/27/2017 15:35:18
--- NOTE | 2017-07-27 15:38 | HHI.CCPN ---
Subjective Remarks/Hospital Course This is a 66-year-old male with a PMH significant for hypertension, atrial fibrillation anticoagulated on Coumadin, CAD, S/P CABG 3 on 07/01/17, PVD , hepatitis C, cirrhosis, diabetes mellitus, CKD, and chronic back pain. Actively the patient was transferred to [facility], and yesterday 07/25/2017 the patient was transferred to [facility]. Patient presented to the ED, for evaluation for SOB, and chest pain. The patient was noted to be hypertensive systolic blood pressures 200's. Patient was placed on BiPAP and nitroglycerin infusion. Imaging and laboratory studies were performed in the ED patient was noted to be in CHF with difficulty in elevation in creatinine, the previous noted baseline of 1.5, now 2.4. Nephrology was consulted, patient has stage 3 CKD. Per report , during his stay at [facility] he was aggressive diuresed for increased lower extremity. Pulmonology was also consulted. Echo was performed this a.m. results are pending, preliminary report large pleural effusions noted. Critical care medicine was consulted. Patient complained at that time on upon initial evaluation chest pain /, IV morphine provided, nitroglycerin infusion continued. Subjective: 07/27: Patient complained of mild incisional chest pain today, angina resolved. Nitroglycerin infusion weaned off . Patient diuresed greater than 4 L in the last 24 hours, however chest x-ray remains unchanged. Patient continues on BiPAP 15/ 5 FiO2 0.40, attempt to place on high flow nasal cannula for consumption of meals. Wound care consulted regarding lower extremity wound, scale or surgery consulted, appreciate recommendations from Dr. Blanchard. Objective Vital Signs Date Time Temp Pulse Resp B/P (MAP) Pulse Ox O2 Delivery O2 Flow Rate FiO2 07/27/17 14:48 98 40 07/27/17 12:17 60 132/69 07/27/17 08:00 97.8 15 07/26/17 05:10 Nasal Cannula 2.00 Intake and Output 07/27/17 07/27/17 07/28/17 08:00 16:00 00:00 Intake Total 450 ml Output Total 1900 ml Balance -1450 ml Result Diagram: 07/27/17 0525 07/27/17 0525 Other Results Laboratory Tests Test 07/26/17 16:44 07/27/17 04:20 Blood Gas Puncture Site RT RADIAL RT RADIAL Blood Gas Patient Temperature 98.6 98.6 Blood Gas HCO3 41 mmol/L (22-26) 42 mmol/L (22-26) Blood Gas Base Excess 16.3 mmol/L (-2-2) 17.1 mmol/L (-2-2) Blood Gas Oxygen Saturation 95 % (90-100) 95 % (90-100) Arterial Blood pH 7.47 (7.380-7.420) 7.50 (7.380-7.420) Arterial Blood Partial Pressure CO2 57 mmHg (38-42) 54 mmHg (38-42) Arterial Blood Partial Pressure O2 108 mmHg (61-120) 112 mmHg (61-120) Arterial Blood Oxygen Content 11.0 Vol % (12.0-20.0) 12.0 Vol % (12.0-20.0) Arterial Blood Carboxyhemoglobin 2.9 % (0-4) 3.0 % (0-4) Arterial Blood Methemoglobin 1.4 % (0-2) 0.9 % (0-2) Blood Gas Hemoglobin 8.1 G/DL (12.0-16.0) 8.8 G/DL (12.0-16.0) Oxygen Delivery Device BIPAP BIPAP Blood Gas Ventilator Setting IPAP15/EPAP5 15/5 Blood Gas Inspired Oxygen 40 % 40 % Imaging Last Impressions Chest X-Ray 07/27/17 0600 Signed Impressions: Service Date/Time: Thursday, July 27, 2017 03:19 - CONCLUSION: No significant change. The findings remain most consistent with congestive heart failure. Ashvin Shankar MD Last Impressions Chest X-Ray 07/26/17 0348 Signed Impressions: Service Date/Time: Wednesday, July 26, 2017 03:56 - CONCLUSION: Findings most characteristic of congestive heart failure. Ashvin Shankar MD Objective Remarks GENERAL: This is a well-developed well-nourished male looking older than stated age, in no acute distress SKIN: Warm and dry. Venous stasis noted, lower extremity HEAD: Atraumatic. Normocephalic. EYES: Pupils equal and round. No scleral icterus. No injection or drainage. ENT: No nasal bleeding or discharge. Mucous membranes pink and moist. NECK: Trachea midline. No JVD. CARDIOVASCULAR: Normal rate, regular rhythm. Well-healed midline chest incision , with Steri-Strips intact. Left chest pacemaker noted RESPIRATORY: No accessory muscle use. Clear to auscultation. Breath sounds equal bilaterally. BIPAP @ 40% GASTROINTESTINAL: Abdomen soft, non-tender, nondistended. No guarding. MUSCULOSKELETAL: Extremities without clubbing, cyanosis, edema noted bilateral lower extremity. Left BKA, right forefoot amputation. Left thigh Steri-Strips appear C/D/I NEUROLOGICAL: Awake and alert. RASS 0. No gross focal/sensory deficits. Follows commands in all 4 extremities. A/P Assessment and Plan Plan by systems: Neurologic: Chest pain-resolved Avoid sedative type medications Monitor neuro status Morphine IV 2mg to 4 hours PRN for pain scale 7-10 Tylenol for temp greater than 101.0 Respiratory: Acute hypoxemic and hypercapnic respiratory failure Maintain O2 sat greater than 92% Continue BiPAP currently 15/5 FIO2 .40%, will attempt high flow nasal cannula initially for meal consumption Duo nebs every 6 hours scheduled every 2 hours when necessary Pulmonary following Cardiovascular: CHF exacerbation Atrial fibrillation Hypertension S/P CABG 07/01/17 Pacemaker Elevated digoxin level Maintain MAP> 65mmHg Patient currently on nitroglycerin 30 mcgs CVS following 07/26- F/U ECHO- difficult study ,probable akinesis of distal anterior and apical jones, mild to moderate MR, moderate TR, left pleural effusion, left atrial moderately to severely dilated, right atrium moderately dilated, PAP 85.3. Inability to determine EF EKG- paced rhythm Digoxin level 2.2 today-continue monitor, digoxin discontinued Continue atorvastatin, carvedilol, and aspirin Patient currently on Coumadin Renal: Acute on chronic kidney disease stage III Continue Smith for accurate I&O's , patient receiving diuretics UOP 4100cc in 24 hours Nephrology following- Dr. Herbert Hill 40 mg IV/ d Creatinine improved 2.4-> 1.89 today -- Strict I/Os FEN/GI: Hep-Lock IV NPO status patient is at risk for intubation Bowel regimen Zofran for nausea Heme/ID: Leukocytosis- resolved 07/26 Blood cultures- NGTD INR 1.9, continue to monitor Pt continued on Warfarin Continue cefepime and azithromycin (day 2) WBC 20->11 today Endocrine: Diabetes mellitus -- SSI , low dose regimen Continue Levemir 12 units daily at bedtime Prophylaxis: GI Prophylaxis Famotidine DVT Prophylaxis -- SCDs Pt presently on Coumadin Lines: Peripheral IVs 2. Central line if indicated Dispo: my billing statement This patient remains critically ill with one or more organ systems which are or may become a threat to life. I have spent in excess of 30 minutes discontinuously in the care and management of this patient. This time is exclusive of procedures, and includes, but is not limited to, evaluation of the patient, review of the medical record, discussions with family, consultants, nursing staff, or respiratory therapy, and documentation in the medical record. Physician Sharmaine Justice MD Jul 27, 2017 15:38
[2017-07-27] MEDS: WARFARIN SOD 6 MG TAB PO SCH (16:16)
[2017-07-27] MEDS: ATORVASTATIN 80 MG TAB PO SCH (21:10)
[2017-07-27] MEDS: INSULIN DETEMIR 100 UNITS/ML VIAL SQ SCH (21:10)
[2017-07-28] VITALS (16 sets, daily range): BP systolic 148–170; BP diastolic 65–74; PULSE 60; RESP 18–31; TEMP 96.2–98.8; O2SAT 69–100
[2017-07-28] MEDS: CHLORHEXIDINE GLUCONATE 2 % 1 PACK (2 CLOTHS)(taper/protocol) TOPICAL SCH (04:12)
[2017-07-28] MEDS: CEFEPIME INJ 1,000 MG in SODIUM CHLORIDE 0.9% INJ 100 ML IV SCH ×3 (04:30→20:28)
--- NOTE | 2017-07-28 05:48 | RADRPT ---
EXAM DATE/TIME: 07/28/2017 03:47 [facility] COMPARISON: CHEST SINGLE AP, July 27, 2017, 3:19. INDICATIONS : Shortness of breath with history of congestive heart failure. MEDICAL HISTORY : Congestive heart failure. Pulmonary edema SURGICAL HISTORY : CABG. Pacemaker. ENCOUNTER: Subsequent ACUITY: 3 days PAIN SCORE: 0/10 LOCATION: Bilateral chest FINDINGS: A single AP semierect view of the chest was obtained and demonstrates the patient is status post medi an sternotomy. The left subclavian transvenous pacer remains in place. There is hazy airspace disease again noted the lung bases with blunting of both costophrenic angles. The heart size remains mildly prominent. The bony thorax is intact. CONCLUSION: No significant change. Ashvin Shankar MD on July 28, 2017 at 5:46 Board Certified Radiologist. This report was verified electronically.
[2017-07-28] MEDS: AZITHROMYCIN INJ 500 MG in SODIUM CHLOR 0.9% 250 ML INJ 250 ML IV SCH (06:35)
[2017-07-28] MEDS: MORPHINE SULFATE 2 MG/ML INJ IV PUSH PRN ×4 (06:36→19:30)
[2017-07-28 07:30] LABS: AUTOMATED NEUTROPHIL # 8.5 TH/MM3 (1.8-7.7); BASOPHIL % 0.1 % (0.0-2.0); EOSINOPHIL # 0.1 TH/MM3 (0-0.4); EOSINOPHIL % 0.6 % (0.0-4.0); HEMATOCRIT 27.1 % (39.0-51.0); LYMPH % 6.9 % (9.0-44.0); LYMPHOCYTE # 0.7 TH/MM3 (1.0-4.8); MEAN CELL VOLUME 87.7 FL (80.0-100.0); MEAN CORPUSCULAR HGB CONC 33.1 % (32.0-36.0); MONO % 6.1 % (0.0-8.0); MONOCYTE # 0.6 TH/MM3 (0-0.9); NEUT % 86.3 % (16.0-70.0); PLATELET COUNT 210 TH/MM3 (150-450); RED BLOOD COUNT 3.09 MIL/MM3 (4.50-5.90); RED CELL DISTRIBUTION WIDTH 17.7 % (11.6-17.2); WHITE BLOOD COUNT 9.8 TH/MM3 (4.0-11.0)
[2017-07-28 07:41] LABS: BICARBONATE 42.7 MEQ/L (21.0-32.0); BLOOD UREA NITROGEN 97 MG/DL (7-18); CALCIUM 9.5 MG/DL (8.5-10.1); CHLORIDE 86 MEQ/L (98-107); CREATININE 1.68 MG/DL (0.60-1.30); GLOMERULAR FILTRATION RATE 41 ML/MIN (>89); GLUCOSE,RANDOM 170 MG/DL (74-106); IRON (FE) 37 MCG/DL (65-175); MAGNESIUM 2.4 MG/DL (1.5-2.5); PHOSPHORUS 3.8 MG/DL (2.5-4.9); SODIUM (NA) 134 MEQ/L (136-145)
[2017-07-28 07:44] LABS: % SATURATION IRON PROFILE 11.5 % (20-50); FERRITIN 228 NG/ML (26-388); TOTAL IRON BINDING CAPACITY 322 MCG/DL (250-450)
[2017-07-28] MEDS: FUROSEMIDE 40 MG/4 ML VIAL IV PUSH SCH ×2 (07:52→17:14)
[2017-07-28] MEDS: CARVEDILOL 12.5 MG TAB PO SCH ×2 (07:52→20:27)
[2017-07-28] MEDS: predniSONE 10 MG TAB PO SCH ×2 (07:52→20:27)
[2017-07-28] MEDS: ASPIRIN 81 MG CHEW TAB PO SCH (07:52)
[2017-07-28] MEDS: PANTOPRAZOLE SOD 40 MG DELAYED RELEASE TAB PO SCH ×2 (07:52→20:27)
[2017-07-28] MEDS: DOCUSATE SODIUM 50 MG/SENNA 8.6 MG TAB PO SCH ×2 (07:52→20:27)
[2017-07-28] MEDS: INSULIN ASPART SUPPLEMENTAL SCALE SQ SCH ×4 (08:12→20:28)
[2017-07-28] MEDS: SODIUM CHLORIDE 0.9% FLUSH 10 ML FLUSH IV FLUSH SCH ×2 (08:13→20:28)
[2017-07-28] MEDS: POTASSIUM CHLORIDE 20 MEQ CONTROLLED RELEASE TAB PO ONE ×2 (10:45→11:31)
--- NOTE | 2017-07-28 11:43 | HHI.CCPN ---
Subjective Remarks/Hospital Course This is a 66-year-old male with a PMH significant for hypertension, atrial fibrillation anticoagulated on Coumadin, CAD, S/P CABG 3 on 07/01/17, PVD , hepatitis C, cirrhosis, diabetes mellitus, CKD, and chronic back pain. Actively the patient was transferred to [facility], and yesterday 07/25/2017 the patient was transferred to [facility]. Patient presented to the ED, for evaluation for SOB, and chest pain. The patient was noted to be hypertensive systolic blood pressures 200's. Patient was placed on BiPAP and nitroglycerin infusion. Imaging and laboratory studies were performed in the ED patient was noted to be in CHF with difficulty in elevation in creatinine, the previous noted baseline of 1.5, now 2.4. Nephrology was consulted, patient has stage 3 CKD. Per report , during his stay at [facility] he was aggressive diuresed for increased lower extremity. Pulmonology was also consulted. Echo was performed this a.m. results are pending, preliminary report large pleural effusions noted. Critical care medicine was consulted. Patient complained at that time on upon initial evaluation chest pain /10, IV morphine provided, nitroglycerin infusion continued. Subjective: 07/27: Patient complained of mild incisional chest pain today, angina resolved. Nitroglycerin infusion weaned off . Patient diuresed greater than 4 L in the last 24 hours, however chest x-ray remains unchanged. Patient continues on BiPAP 15/ 5 FiO2 0.40, attempt to place on high flow nasal cannula for consumption of meals. Wound care consulted regarding lower extremity wound, scale or surgery consulted, appreciate recommendations from Dr. Blanchard. 07/28: Patient currently off BiPAP on high flow nasal cannula. Tolerating well. Urine output excellent with IV Lasix creatinine also improving, urine output approximately 3.5 L in 24 hours. Chest x-ray remains unchanged with bibasilar infiltrate/effusion Objective Vital Signs Date Time Temp Pulse Resp B/P (MAP) Pulse Ox O2 Delivery O2 Flow Rate FiO2 07/28/17 10:00 60 07/28/17 09:24 98 High Flow Nasal Cannula 20.00 40 07/28/17 08:00 25 170/71 (104) 07/28/17 04:00 97.9 Intake and Output 07/28/17 07/28/17 07/29/17 08:00 16:00 00:00 Intake Total 675 ml Output Total 1450 ml Balance -775 ml Result Diagram: 07/28/17 0656 07/28/17 0656 Other Results Laboratory Tests Test 07/28/17 03:42 Blood Gas Puncture Site LT RADIAL Blood Gas Patient Temperature 98.6 Blood Gas HCO3 42 mmol/L (22-26) Blood Gas Base Excess 17.5 mmol/L (-2-2) Blood Gas Oxygen Saturation 96 % (90-100) Arterial Blood pH 7.53 (7.380-7.420) Arterial Blood Partial Pressure CO2 51 mmHg (38-42) Arterial Blood Partial Pressure O2 127 mmHg (61-120) Arterial Blood Oxygen Content 11.2 Vol % (12.0-20.0) Arterial Blood Carboxyhemoglobin 3.0 % (0-4) Arterial Blood Methemoglobin 1.2 % (0-2) Blood Gas Hemoglobin 8.2 G/DL (12.0-16.0) Oxygen Delivery Device BiPAP Blood Gas Ventilator Setting 15IPAP/5EPAP Blood Gas Inspired Oxygen 40 % Imaging Last Impressions Chest X-Ray 07/27/17 0600 Signed Impressions: Service Date/Time: Thursday, July 27, 2017 03:19 - CONCLUSION: No significant change. The findings remain most consistent with congestive heart failure. Ashvin Shankar MD Last Impressions Chest X-Ray 07/26/17 0348 Signed Impressions: Service Date/Time: Wednesday, July 26, 2017 03:56 - CONCLUSION: Findings most characteristic of congestive heart failure. Ashvin Shankar MD Objective Remarks GENERAL: This is a well-developed well-nourished male, in no acute distress SKIN: Warm and dry. Venous stasis noted, lower extremity HEAD: Atraumatic. Normocephalic. EYES: Pupils equal and round. No scleral icterus. No injection or drainage. ENT: No nasal bleeding or discharge. Mucous membranes pink and moist. NECK: Trachea midline. No JVD. CARDIOVASCULAR: Normal rate, regular rhythm. Well-healed midline chest incision , with Steri-Strips intact. Left chest pacemaker noted RESPIRATORY: No accessory muscle use. Clear to auscultation. Breath sounds equal bilaterally. On hi [place] GASTROINTESTINAL: Abdomen soft, non-tender, nondistended. No guarding. MUSCULOSKELETAL: Extremities without clubbing, cyanosis, edema noted bilateral lower extremity. Left BKA, right forefoot amputation. Left thigh Steri-Strips appear C/D/I NEUROLOGICAL: Awake and alert. No gross focal/sensory deficits. Follows commands in all 4 extremities. A/P Assessment and Plan Plan by systems: Neurologic: Chest pain-resolved Avoid sedative type medications. Monitor neuro status Morphine IV 2mg to 4 hours PRN for pain scale 7-10 Tylenol for temp greater than 101.0 Respiratory: Acute hypoxemic and hypercapnic respiratory failure Maintain O2 sat greater than 92% BiPAP PRN, currently tolerating high flow nasal cannula Duo nebs every 6 hours scheduled every 2 hours when necessary Continue prednisone Pulmonary following Cardiovascular: CHF exacerbation Atrial fibrillation Hypertension S/P CABG 07/01/17 Pacemaker Elevated digoxin level Maintain MAP> 65mmHg CVS following 07/26- F/U ECHO- difficult study ,probable akinesis of distal anterior and apical jones, mild to moderate MR, moderate TR, left pleural effusion, left atrial moderately to severely dilated, right atrium moderately dilated, PAP 85.3. Inability to determine EF EKG- paced rhythm Digoxin level 2.2 today-continue monitor, digoxin discontinued Continue atorvastatin, carvedilol, and aspirin Patient currently on Coumadin Renal: Acute on chronic kidney disease stage III Continue Sarah for accurate I&O's , patient receiving diuretics UOP 3400 cc in 24 hours Nephrology following- Dr. Herbert Hill 40 mg IV q12 Creatinine improved 2.4-> 1.89-->1.69 today -- Strict I/Os FEN/GI: Hep-Lock IV Heart healthy, renal diet Bowel regimen Zofran for nausea Heme/ID: Leukocytosis- resolved 07/26 Blood cultures- NGTD INR 1.9, continue to monitor Pt continued on Warfarin Continue cefepime and azithromycin (day 3) Endocrine: Diabetes mellitus -- SSI , low dose regimen Continue Levemir 12 units daily at bedtime Prophylaxis: GI Prophylaxis Famotidine DVT Prophylaxis -- SCDs Pt presently on Coumadin Lines: Peripheral IVs 2. Central line if indicated Dispo: my billing statement Leve3 Consult [facility] to assume care in a.m. 07/29/2017, transferred to CICU/CPCU with telemetry Phong Monroy MD Jul 28, 2017 11:43
[2017-07-28] MEDS ORDERED: POTASSIUM CHLORIDE 25 MEQ EFFERVESCENT TAB PO ONE (12:00)
[2017-07-28] MEDS: WARFARIN SOD 6 MG TAB PO SCH (15:47)
[2017-07-28] MEDS: ALPRAZolam 0.25 MG TAB PO PRN (16:04)
--- NOTE | 2017-07-28 16:04 | HHI.NPPN ---
Subjective Complaints: Shortness of Breath Renal Failure: Chronic, Stage III History of Present Illness Patient is a 66-year-old male with a past medical history significant for hypertension, atrial fibrillation anticoagulated on Coumadin, coronary artery disease status post CABG 3 on 07/01/17, peripheral vascular disease, hepatitis C, cirrhosis, diabetes mellitus, CKD, and chronic back pain. Presents to the emergency department for evaluation for SOB. Patient is on BIPAP with nitroglycerin gtt. The patient was discharged from [place] on to [facility]. Nephrology was consulted for worsening renal indices patients baseline creatinine is 1.50, patient has stage 3 CKD. Creatinine was found to be 2.40 and a GFR of 27 ml/min. During his stay at [place] rehab he was aggressive diuresed for increased lower extremity. Additional Remarks Patient on high flow NC continues to feel SOB. Use of accessory muscles. Edema is improving. (Corinne Vizcaino) Review of Systems General Constitutional: Fatigue (Corinne Vizcaino) Respiratory Lungs: SOB (Corinne Vizcaino) Cardiovascular Cardiac Remarks Denies CP (Corinne Vizcaino) Gastrointestinal GI Remarks No abdominal pain (Corinne Vizcaino) Objective Data Data 07/28/17 07/29/17 19:00 07:00 Intake Total 500 ml Output Total 625 ml Balance -125 ml Intake Oral 500 ml Output Urine Total 625 ml # Bowel Movements 1 Vital Signs Date Time Temp Pulse Resp B/P (MAP) Pulse Ox O2 Delivery O2 Flow Rate FiO2 07/28/17 14:00 60 07/28/17 13:00 100 40 07/28/17 12:00 60 07/28/17 12:00 97.5 60 31 152/65 (94) 85 07/28/17 10:00 60 07/28/17 09:24 98 High Flow Nasal Cannula 20.00 40 07/28/17 08:00 60 25 170/71 (104) 100 07/28/17 08:00 60 07/28/17 06:00 60 07/28/17 04:00 97.9 60 20 160/74 (102) 99 07/28/17 04:00 60 07/28/17 03:14 99 40 07/28/17 02:00 60 07/28/17 00:00 98.8 60 21 148/70 (96) 99 07/28/17 00:00 60 07/27/17 22:18 100 BiPAP 40 07/27/17 22:18 100 40 07/27/17 22:00 60 07/27/17 21:10 14 07/27/17 20:00 98.6 60 14 145/68 (93) 100 07/27/17 20:00 60 07/27/17 19:26 100 40 07/27/17 19:00 94 Bi-Pap 40 07/27/17 18:00 60 (Corinne Vizcaino) -: 07/28/17 0656 07/28/17 0656 Imaging Last Impressions Chest X-Ray 07/28/17 0400 Signed Impressions: Service Date/Time: , July 28, 2017 03:47 - CONCLUSION: No significant change. Ashvin Shankar MD (Corinne Vizcaino) Physical Exam Eyes Eye Exam: Pupils Equal (Corinne Vizcaino) Neck Neck Exam: Neck Supple (Corinne Vizcaino) Pulmonary Resp Exam: Breath Sounds Equal, Decreased Bases (Corinne Vizcaino) Cardiology CV Exam: Regular, Normal Sinus Rhythm (Corinne Vizcaino) Gastrointestinal/Abdomen GI Exam: Soft, Non-Tender, Bowel Sounds Present (Corinne Vizcaino) Genitourinary Exam: Clear Urine, Flank Non-Tender (Corinne Vizcaino) Integumentary Skin Exam: Clear, Warm, Dry (Corinne Vizcaino) Extremeties Extremities Exam: Moderate Edema, Pitting Edema (Corinne Vizcaino) Neurologic Neuro Exam: Alert, Awake, Oriented (Corinne Vizcaino) Psychiatric Psych Exam: Appropriate Responses (Corinne Vizcaino) Assessment/Plan Problem List: (1) FRANCISCO (acute kidney injury) ICD Codes: N17.9 - Acute kidney injury Status: Acute Plan: FRANCISCO on CKD stage 3 Patient was re admitted with fluid overload. He has chronic kidney disease, and develop FRANCISCO. CKD most likely form Diabetic nephropathy UA with 3 + protein. NH high flow Plan Continue Smith to SD to maintain strict I+o Edema improving with lasix Creatinine improving daily at 1.68 today baseline at 1.5 Iron stores are low Venofer ordered. Continue Lasix, follow the urine out put and BMP. (2) HTN (hypertension) ICD Codes: I10 - Essential (primary) hypertension (3) Diabetes mellitus ICD Codes: E11.9 - Diabetes mellitus Status: Acute (4) Chronic hyponatremia ICD Codes: E87.1 - Chronic hyponatremia Status: Acute (5) Chronic systolic CHF (congestive heart failure) ICD Codes: I50.22 - Chronic systolic congestive heart failure Status: Acute (Corinne Vizcaino) Problem List: (1) FRANCISCO (acute kidney injury) ICD Codes: N17.9 - Acute kidney injury Status: Acute Plan: FRANCISCO on CKD stage 3 Patient was re admitted with fluid overload. He has chronic kidney disease, and develop FRANCISCO. CKD most likely form Diabetic nephropathy UA with 3 + protein. NH high flow Plan Continue Smith to SD to maintain strict I+o Edema improving with Lasix Creatinine improving daily at 1.68 today baseline at 1.5 Iron stores are low Venofer ordered. Continue Lasix, follow the urine out put and BMP. Patient seen and examined, agree with above. Continue diuretics, avoid Nephrotoxins. (2) HTN (hypertension) ICD Codes: I10 - Essential (primary) hypertension (3) Diabetes mellitus ICD Codes: E11.9 - Diabetes mellitus Status: Acute (4) Chronic hyponatremia ICD Codes: E87.1 - Chronic hyponatremia Status: Acute (5) Chronic systolic CHF (congestive heart failure) ICD Codes: I50.22 - Chronic systolic congestive heart failure Status: Acute (Jai Godinez MD) Problem Qualifiers (1) HTN (hypertension): Qualified Codes: I10 - Essential (primary) hypertension Corinne Vizcaino Jul 28, 2017 16:04 Jai Godinez MD Jul 28, 2017 21:06
--- NOTE | 2017-07-28 16:52 | HHI.PR ---
Subjective Remarks ALERT SITTING IN BED ON BIPAP EXCELLENT DIURESIS Objective Vital Signs Date Time Temp Pulse Resp B/P (MAP) Pulse Ox O2 Delivery O2 Flow Rate FiO2 07/28/17 16:00 96.2 60 18 153/70 (97) 69 07/28/17 16:00 60 07/28/17 14:00 60 07/28/17 13:00 100 40 07/28/17 12:00 60 07/28/17 12:00 97.5 60 31 152/65 (94) 85 07/28/17 10:00 60 07/28/17 09:24 98 High Flow Nasal Cannula 20.00 40 07/28/17 08:00 60 25 170/71 (104) 100 07/28/17 08:00 60 07/28/17 06:00 60 07/28/17 04:00 97.9 60 20 160/74 (102) 99 07/28/17 04:00 60 07/28/17 03:14 99 40 07/28/17 02:00 60 07/28/17 00:00 98.8 60 21 148/70 (96) 99 07/28/17 00:00 60 07/27/17 22:18 100 BiPAP 40 07/27/17 22:18 100 40 07/27/17 22:00 60 07/27/17 21:10 14 07/27/17 20:00 98.6 60 14 145/68 (93) 100 07/27/17 20:00 60 07/27/17 19:26 100 40 07/27/17 19:00 94 Bi-Pap 40 07/27/17 18:00 60 I/O 07/27/17 07/27/17 07/27/17 07/28/17 07/28/17 07/28/17 07:00 15:00 23:00 07:00 15:00 23:00 Intake Total 304 ml 250 ml 740 ml 675 ml 500 ml Output Total 1900 ml 2000 ml 1450 ml 625 ml Balance -1596 ml 250 ml -1260 ml -775 ml -125 ml Intake Oral 480 ml 675 ml 500 ml IV Total 304 ml 250 ml 260 ml Output Urine Total 1900 ml 2000 ml 1450 ml 625 ml # Bowel Movements 0 1 1 1 Result Diagram: 2/22/18 0656 2/22/18 0656 Objective Remarks GENERAL: SKIN: Warm and dry. HEAD: Atraumatic. Normocephalic. EYES: Pupils equal and round. No scleral icterus. No injection or drainage. ENT: No nasal bleeding or discharge. Mucous membranes pink and moist. NECK: Trachea midline. No JVD. CARDIOVASCULAR: Regular rate and rhythm. RESPIRATORY: No accessory muscle use. decrease breath sounds at basis. GASTROINTESTINAL: Abdomen soft, non-tender, nondistended. Hepatic and splenic margins not palpable. MUSCULOSKELETAL: Extremities without clubbing, cyanosis, or edema. No obvious deformities. NEUROLOGICAL: Awake and alert. No obvious cranial nerve deficits. Motor grossly within normal limits. Five out of 5 muscle strength in the arms and legs. Normal speech. PSYCHIATRIC: Appropriate mood and affect; insight and judgment normal. Assessment and Plan Assessment and Plan respiratory failure CHF DM HTN CKD PLAN CONTINUE O2 DIAERESIS PULM TOILET F/U CXSalima Huddleston MD Jul 28, 2017 16:52
[2017-07-28] MEDS ORDERED: methylPREDNISolone SOD SUCC 125 MG/2 ML VIAL IV PUSH ONE (17:00)
[2017-07-28] MEDS: IRON SUCROSE INJ 100 MG in SODIUM CHLORIDE 0.9% INJ 100 ML IV SCH (17:24)
[2017-07-28] MEDS: ATORVASTATIN 80 MG TAB PO SCH (20:27)
[2017-07-28] MEDS: INSULIN DETEMIR 100 UNITS/ML VIAL SQ SCH (20:28)
[2017-07-29] VITALS (15 sets, daily range): BP systolic 120–154; BP diastolic 59–72; PULSE 59–78; RESP 15–38; TEMP 97–98.5; O2SAT 94–100
[2017-07-29] MEDS: ALPRAZolam 0.25 MG TAB PO PRN ×3 (00:45→21:03)
[2017-07-29] MEDS: MORPHINE SULFATE 2 MG/ML INJ IV PUSH PRN ×4 (00:45→21:03)
[2017-07-29] MEDS: CHLORHEXIDINE GLUCONATE 2 % 1 PACK (2 CLOTHS)(taper/protocol) TOPICAL SCH (03:40)
[2017-07-29] MEDS: CEFEPIME INJ 1,000 MG in SODIUM CHLORIDE 0.9% INJ 100 ML IV SCH ×3 (03:41→21:03)
[2017-07-29] MEDS: INSULIN DETEMIR 100 UNITS/ML VIAL SQ SCH ×2 (04:54→17:24)
[2017-07-29] MEDS: AZITHROMYCIN INJ 500 MG in SODIUM CHLOR 0.9% 250 ML INJ 250 ML IV SCH (04:54)
[2017-07-29 07:26] LABS: INTERNATIONAL NORMALIZED RATIO 4.7 RATIO; PROTHROMBIN TIME - PATIENT 47.4 SEC (9.8-11.6)
[2017-07-29 07:37] LABS: ALBUMIN 3.6 GM/DL (3.4-5.0); ALKALINE PHOSPHATASE 163 U/L (45-117); ALT (GPT) 29 U/L (12-78); AST (GOT) 21 U/L (15-37); BICARBONATE 39.7 MEQ/L (21.0-32.0); BLOOD UREA NITROGEN 94 MG/DL (7-18); CALCIUM 9.4 MG/DL (8.5-10.1); CHLORIDE 85 MEQ/L (98-107); CREATININE 1.76 MG/DL (0.60-1.30); GLOMERULAR FILTRATION RATE 39 ML/MIN (>89); GLUCOSE,RANDOM 366 MG/DL (74-106); SODIUM (NA) 132 MEQ/L (136-145); TOTAL BILIRUBIN ADULT 1.7 MG/DL (0.2-1.0); TOTAL PROTEIN 7.5 GM/DL (6.4-8.2)
--- NOTE | 2017-07-29 08:33 | RADRPT ---
EXAM DATE/TIME: 07/29/2017 07:54 [place] COMPARISON: CHEST SINGLE AP, July 28, 2017, 3:47. INDICATIONS : Respiratory disease. MEDICAL HISTORY : Congestive heart failure. Pulmonary edema SURGICAL HISTORY : CABG, pacemaker. ENCOUNTER: Subsequent ACUITY: 3 days PAIN SCORE: 0/10 LOCATION: Bilateral chest FINDINGS: The heart is enlarged. There are bilateral effusions. There is diffuse interstitial prominence. The e xam which suggest congestive failure. The overall appearance of the pulmonary parenchyma is similar t o the prior dated 07/28/17. CONCLUSION: 1. Cardiomegaly with small bilateral effusions and interstitial prominence suggesting congestive fail ure. Exam is stable compared to previous. Ever Gray MD on July 29, 2017 at 8:31 Board Certified Radiologist. This report was verified electronically.
[2017-07-29] MEDS: CARVEDILOL 12.5 MG TAB PO SCH ×2 (09:40→21:04)
[2017-07-29] MEDS: FUROSEMIDE 40 MG/4 ML VIAL IV PUSH SCH ×2 (09:41→17:25)
[2017-07-29] MEDS: SODIUM CHLORIDE 0.9% FLUSH 10 ML FLUSH IV FLUSH SCH ×2 (09:41→21:03)
[2017-07-29] MEDS: ASPIRIN 81 MG CHEW TAB PO SCH (09:41)
[2017-07-29] MEDS: predniSONE 10 MG TAB PO SCH ×2 (09:41→21:04)
[2017-07-29] MEDS: DOCUSATE SODIUM 50 MG/SENNA 8.6 MG TAB PO SCH ×2 (09:41→21:04)
[2017-07-29] MEDS: PANTOPRAZOLE SOD 40 MG DELAYED RELEASE TAB PO SCH ×2 (09:41→21:03)
[2017-07-29] MEDS: INSULIN ASPART SUPPLEMENTAL SCALE SQ SCH ×4 (09:44→21:03)
[2017-07-29] MEDS: IRON SUCROSE INJ 100 MG in SODIUM CHLORIDE 0.9% INJ 100 ML IV SCH (09:45)
--- NOTE | 2017-07-29 11:42 | HHI.NPPN ---
Subjective Complaints: Shortness of Breath Renal Failure: Chronic, Stage III History of Present Illness Patient is a 66-year-old male with a past medical history significant for hypertension, atrial fibrillation anticoagulated on Coumadin, coronary artery disease status post CABG 3 on 07/01/17, peripheral vascular disease, hepatitis C, cirrhosis, diabetes mellitus, CKD, and chronic back pain. Presents to the emergency department for evaluation for SOB. Patient is on BIPAP with nitroglycerin gtt. The patient was discharged from [place] on to [facility]. Nephrology was consulted for worsening renal indices patients baseline creatinine is 1.50, patient has stage 3 CKD. Creatinine was found to be 2.40 and a GFR of 27 ml/min. During his stay at [place] re[facility] he was aggressive diuresed for increased lower extremity. Additional Remarks SOB and edema is improving. (Corinne Vizcaino) Review of Systems General Constitutional: Fatigue (Corinne Vizcaino) Respiratory Lungs: SOB (Corinne Vizcaino) Cardiovascular Cardiac Remarks Denies CP (Corinne Vizcaino) Gastrointestinal GI Remarks No abdominal pain (Corinne Vizcaino) Objective Data Data Vital Signs Date Time Temp Pulse Resp B/P (MAP) Pulse Ox O2 Delivery O2 Flow Rate FiO2 07/29/17 10:58 20 07/29/17 10:00 60 07/29/17 08:35 95 Nasal Cannula 3.00 07/29/17 08:00 98.5 60 22 140/63 97 07/29/17 08:00 60 07/29/17 06:00 78 07/29/17 04:18 98 40 07/29/17 04:00 60 07/29/17 04:00 97.4 60 15 143/66 (91) 98 07/29/17 02:00 60 07/29/17 01:27 95 50 07/29/17 00:00 97.9 60 18 120/59 (79) 95 07/29/17 00:00 60 07/28/17 22:00 60 07/28/17 20:00 60 07/28/17 20:00 97.7 60 19 148/66 (93) 91 07/28/17 19:45 94 50 07/28/17 19:00 91 Bi-Pap 40 07/28/17 18:00 60 07/28/17 16:00 96.2 60 18 153/70 (97) 69 07/28/17 16:00 60 07/28/17 14:00 60 07/28/17 13:00 100 40 07/28/17 12:00 60 07/28/17 12:00 97.5 60 31 152/65 (94) 85 (Corinne Vizcaino) -: 07/28/17 0656 07/29/17 0555 Imaging Last Impressions Chest X-Ray 07/29/17 0000 Signed Impressions: Service Date/Time: Saturday, July 29, 2017 07:54 - CONCLUSION: 1. Cardiomegaly with small bilateral effusions and interstitial prominence suggesting congestive failure. Exam is stable compared to previous. Ever Gray MD (Corinne Vizcaino) Physical Exam Eyes Eye Exam: Pupils Equal (Corinne Vizcaino) Neck Neck Exam: Neck Supple (Corinne Vizcaino) Pulmonary Resp Exam: Breath Sounds Equal, Decreased Bases (Corinne Vizcaino) Cardiology CV Exam: Regular, Normal Sinus Rhythm (Corinne Vizcaino) Gastrointestinal/Abdomen GI Exam: Soft, Non-Tender, Bowel Sounds Present (Corinne Vizcaino) Genitourinary Exam: Clear Urine, Flank Non-Tender (Corinne Vizcaino) Integumentary Skin Exam: Clear, Warm, Dry (Corinne Vizcaino) Extremeties Extremities Exam: Moderate Edema, Pitting Edema (Corinne Vizcaino) Neurologic Neuro Exam: Alert, Awake, Oriented (Corinne Vizcaino) Psychiatric Psych Exam: Appropriate Responses (Corinne Vizcaino) Assessment/Plan Problem List: (1) FRANCISCO (acute kidney injury) ICD Codes: N17.9 - Acute kidney injury Status: Acute Plan: FRANCISCO on CKD stage 3 Patient was re admitted with fluid overload. He has chronic kidney disease, and develop FRANCISCO. CKD most likely form Diabetic nephropathy UA with 3 + protein. Plan Continue Smith to SD to maintain strict I+o Edema and SOB improving with Lasix Creatinine at 1.76 today HGB at 9, Venofer daily. Continue Lasix, follow the urine out put and BMP. Avoid Nephrotoxins. (2) HTN (hypertension) ICD Codes: I10 - Essential (primary) hypertension (3) Diabetes mellitus ICD Codes: E11.9 - Diabetes mellitus Status: Acute (4) Chronic hyponatremia ICD Codes: E87.1 - Chronic hyponatremia Status: Acute (5) Chronic systolic CHF (congestive heart failure) ICD Codes: I50.22 - Chronic systolic congestive heart failure Status: Acute (Corinne Vizcaino) Problem List: (1) FRANCISCO (acute kidney injury) ICD Codes: N17.9 - Acute kidney injury Status: Acute Plan: FRANCISCO on CKD stage 3 Patient was re admitted with fluid overload. He has chronic kidney disease, and develop FRANCISCO. CKD most likely form Diabetic nephropathy UA with 3 + protein. Plan Continue Smith to SD to maintain strict I+o Edema and SOB improving with Lasix Creatinine at 1.76 today HGB at 9, Venofer daily. Continue Lasix, follow the urine out put and BMP. Avoid Nephrotoxins. Patient seen and examined, agree with above. Creatinine is stable. (2) HTN (hypertension) ICD Codes: I10 - Essential (primary) hypertension (3) Diabetes mellitus ICD Codes: E11.9 - Diabetes mellitus Status: Acute (4) Chronic hyponatremia ICD Codes: E87.1 - Chronic hyponatremia Status: Acute (5) Chronic systolic CHF (congestive heart failure) ICD Codes: I50.22 - Chronic systolic congestive heart failure Status: Acute (Jai Godinez MD) Problem Qualifiers (1) HTN (hypertension): Qualified Codes: I10 - Essential (primary) hypertension Corinne Vizcaino Jul 29, 2017 11:42 Jai Godinez MD Jul 29, 2017 22:49
[2017-07-29] MEDS: WARFARIN SOD 6 MG TAB PO SCH (15:22)
--- NOTE | 2017-07-29 15:24 | HHI.PR ---
Subjective Remarks ALERT SITTING IN BED ON O2 NC EXCELLENT DIURESIS Objective Vital Signs Date Time Temp Pulse Resp B/P (MAP) Pulse Ox O2 Delivery O2 Flow Rate FiO2 07/29/17 14:00 65 07/29/17 12:00 98.0 59 27 147/66 (93) 100 07/29/17 12:00 60 07/29/17 10:58 20 07/29/17 10:00 60 07/29/17 08:35 95 Nasal Cannula 3.00 07/29/17 08:00 98.5 60 22 140/63 97 07/29/17 08:00 60 07/29/17 07:00 Nasal Cannula 3.00 Humidified 07/29/17 06:00 78 07/29/17 04:18 98 40 07/29/17 04:00 60 07/29/17 04:00 97.4 60 15 143/66 (91) 98 07/29/17 02:00 60 07/29/17 01:27 95 50 07/29/17 00:00 97.9 60 18 120/59 (79) 95 07/29/17 00:00 60 07/28/17 22:00 60 07/28/17 20:00 60 07/28/17 20:00 97.7 60 19 148/66 (93) 91 07/28/17 19:45 94 50 07/28/17 19:00 91 Bi-Pap 40 07/28/17 18:00 60 07/28/17 16:00 96.2 60 18 153/70 (97) 69 07/28/17 16:00 60 I/O 07/28/17 07/28/17 07/28/17 07/29/17 07/29/17 07/29/17 07:00 15:00 23:00 07:00 15:00 23:00 Intake Total 925 ml 600 ml 1170 ml 100 ml Output Total 1450 ml 925 ml 1350 ml Balance -525 ml -325 ml -180 ml 100 ml Intake Oral 675 ml 500 ml 720 ml IV Total 250 ml 100 ml 450 ml 100 ml Output Urine Total 1450 ml 925 ml 1350 ml # Bowel Movements 1 1 0 Result Diagram: 07/28/17 0656 07/29/17 0555 Objective Remarks GENERAL: SKIN: Warm and dry. HEAD: Atraumatic. Normocephalic. EYES: Pupils equal and round. No scleral icterus. No injection or drainage. ENT: No nasal bleeding or discharge. Mucous membranes pink and moist. NECK: Trachea midline. No JVD. CARDIOVASCULAR: Regular rate and rhythm. RESPIRATORY: No accessory muscle use. decrease breath sounds at basis. GASTROINTESTINAL: Abdomen soft, non-tender, nondistended. Hepatic and splenic margins not palpable. MUSCULOSKELETAL: Extremities without clubbing, cyanosis, or edema. No obvious deformities. NEUROLOGICAL: Awake and alert. No obvious cranial nerve deficits. Motor grossly within normal limits. Five out of 5 muscle strength in the arms and legs. Normal speech. PSYCHIATRIC: Appropriate mood and affect; insight and judgment normal. Assessment and Plan Assessment and Plan respiratory failure CHF DM HTN CKD PLAN CONTINUE O2 DIAERESIS PULM TOILET Salima Borrego MD Jul 29, 2017 15:24
[2017-07-29] MEDS: ATORVASTATIN 80 MG TAB PO SCH (21:03)
--- NOTE | 2017-07-29 23:01 | HHI.PR ---
Subjective Remarks This is a 66-year-old male with a PMH significant for hypertension, atrial fibrillation anticoagulated on Coumadin, CAD, S/P CABG 3 on 07/01/17, PVD , hepatitis C, cirrhosis, diabetes mellitus, CKD, and chronic back pain. Actively the patient was transferred to [facility], and yesterday 07/25/2017 the patient was transferred to [facility]. Patient presented to the ED, for evaluation for SOB, and chest pain. The patient was noted to be hypertensive systolic blood pressures 200's. Patient was placed on BiPAP and nitroglycerin infusion. Imaging and laboratory studies were performed in the ED patient was noted to be in CHF with difficulty in elevation in creatinine, the previous noted baseline of 1.5, now 2.4. Nephrology was consulted, patient has stage 3 CKD. Per report , during his stay at [facility] he was aggressive diuresed for increased lower extremity. Pulmonology was also consulted. Echo was performed this a.m. results are pending, preliminary report large pleural effusions noted. Critical care medicine was consulted. Patient complained at that time on upon initial evaluation chest pain 01/13, IV morphine provided, nitroglycerin infusion continued. Subjective: 07/27: Patient complained of mild incisional chest pain today, angina resolved. Nitroglycerin infusion weaned off . Patient diuresed greater than 4 L in the last 24 hours, however chest x-ray remains unchanged. Patient continues on BiPAP 15/ 5 FiO2 0.40, attempt to place on high flow nasal cannula for consumption of meals. Wound care consulted regarding lower extremity wound, scale or surgery consulted, appreciate recommendations from Dr. Blanchard. 07/28: Patient currently off BiPAP on high flow nasal cannula. Tolerating well. Urine output excellent with IV Lasix creatinine also improving, urine output approximately 3.5 L in 24 hours. Chest x-ray remains unchanged with bibasilar infiltrate/effusion 07/29. Patient reports improvement in shortness of breath today. He requests appear butter jelly sandwich. Glucose in the 300s. Objective Vital Signs Date Time Temp Pulse Resp B/P (MAP) Pulse Ox O2 Delivery O2 Flow Rate FiO2 07/29/17 20:01 100 40 07/29/17 20:01 100 BiPAP 40 07/29/17 20:00 60 07/29/17 20:00 97.2 60 38 154/72 (99) 99 07/29/17 19:00 Nasal Cannula 3.00 Bi-Pap 07/29/17 18:04 100 Bi-Pap 40 07/29/17 18:00 59 07/29/17 16:00 60 07/29/17 16:00 97.0 60 19 129/62 (84) 94 07/29/17 15:40 20 07/29/17 14:00 65 07/29/17 12:00 98.0 59 27 147/66 (93) 100 07/29/17 12:00 60 07/29/17 10:00 60 07/29/17 08:35 95 Nasal Cannula 3.00 07/29/17 08:00 98.5 60 22 140/63 97 07/29/17 08:00 60 07/29/17 07:00 Nasal Cannula 3.00 Humidified 07/29/17 06:00 78 07/29/17 04:18 98 40 07/29/17 04:00 60 07/29/17 04:00 97.4 60 15 143/66 (91) 98 07/29/17 02:00 60 07/29/17 01:27 95 50 07/29/17 00:00 97.9 60 18 120/59 (79) 95 07/29/17 00:00 60 I/O 07/28/17 07/28/17 07/28/17 07/29/17 07/29/17 07/29/17 06:59 14:59 22:59 06:59 14:59 22:59 Intake Total 675 ml 250 ml 600 ml 1170 ml 100 ml 205 ml Output Total 1450 ml 925 ml 1350 ml 1075 ml Balance -775 ml 250 ml -325 ml -180 ml 100 ml -870 ml Intake Oral 675 ml 500 ml 720 ml 100 ml IV Total 250 ml 100 ml 450 ml 100 ml 105 ml Output Urine Total 1450 ml 925 ml 1350 ml 1075 ml # Bowel Movements 1 1 0 0 Result Diagram: 07/28/17 0656 07/29/17 0555 Objective Remarks GENERAL: patient sitting up in bed. Appears comfortable. SKIN: Warm and dry. HEAD: Normocephalic. EYES: No scleral icterus. No injection or drainage. NECK: Supple, trachea midline. No JVD. CARDIOVASCULAR: Regular rate and rhythm without murmurs, gallops, or rubs. RESPIRATORY: Breath sounds equal bilaterally. No accessory muscle use. GASTROINTESTINAL: Abdomen soft, non-tender, nondistended. MUSCULOSKELETAL: No cyanosis. peripheral edema. Bilateral below the knee amputations BACK: Nontender without obvious deformity. No CVA tenderness. A/P Assessment and Plan Neurologic: //Chest pain-resolved Avoid sedative type medications. Monitor neuro status Morphine IV 2mg to 4 hours PRN for pain scale 7-10 Tylenol for temp greater than 101.0 Respiratory: //acute hypoxemic and hypercapnic respiratory failure Maintain O2 sat greater than 92% BiPAP PRN, currently tolerating high flow nasal cannula Duo nebs every 6 hours scheduled every 2 hours when necessary Continue prednisone Pulmonary following. Appreciate assistance. Cardiovascular: //CHF exacerbation //Atrial fibrillation //Hypertension //S/P CABG 07/01/17 //Pacemaker //Elevated digoxin level Maintain MAP> 65mmHg CVS following 07/26- F/U ECHO- difficult study ,probable akinesis of distal anterior and apical jones, mild to moderate MR, moderate TR, left pleural effusion, left atrial moderately to severely dilated, right atrium moderately dilated, PAP 85.3. Inability to determine EF EKG- paced rhythm Digoxin level 2.2 today-continue monitor, digoxin discontinued Continue atorvastatin, carvedilol, and aspirin Patient currently on Coumadin = Supratherapeutic INR. Hold Coumadin today. Consult pharmacy. Discussed with nursing. Continue to hold digoxin. Consider restarting if A. fib, RVR. Renal: //Acute on chronic kidney disease stage III Continue Smith for accurate I&O's , patient receiving diuretics UOP 3400 cc in 24 hours Nephrology following- Dr. Herbert Hill 40 mg IV q12 Creatinine improved 2.4-> 1.89-->1.69 today -- Strict I/Os = [place] 1.76 today. Overall stable. Continues with good urine output. Continue Smith for accurate I's and O's. FEN/GI: Hep-Lock IV Heart healthy, renal diet Bowel regimen Zofran for nausea Heme/ID: //Leukocytosis- resolved 07/26 Blood cultures- NGTD INR 1.9, continue to monitor Pt continued on Warfarin Leukocytosis improved 9.8 yesterday. Continue cefepime and azithromycin (day 4) Endocrine: //Diabetes mellitus -- SSI , low dose regimen Continue Levemir 12 units daily at bedtime = 07/29. Glucose elevated in the 400s today. Increase sliding scale, Levemir. Prophylaxis: GI Prophylaxis Famotidine DVT Prophylaxis -- SCDs Pt presently on Coumadin Lines: Peripheral IVs 2. Central line if indicated Discharge Planning transfer to medical floor.PT following. Order OT due to the possibility of needing rehabilitation. Hamzah Mireles MD Jul 29, 2017 23:01
[2017-07-30] VITALS (24 sets, daily range): BP systolic 110–154; BP diastolic 55–78; PULSE 54–61; RESP 20–24; TEMP 97.9–98.6; O2SAT 94–99
[2017-07-30] MEDS: MORPHINE SULFATE 2 MG/ML INJ IV PUSH PRN ×3 (01:20→12:55)
[2017-07-30] MEDS: CHLORHEXIDINE GLUCONATE 2 % 1 PACK (2 CLOTHS)(taper/protocol) TOPICAL SCH (04:00)
[2017-07-30] MEDS: CEFEPIME INJ 1,000 MG in SODIUM CHLORIDE 0.9% INJ 100 ML IV SCH ×3 (04:22→21:34)
[2017-07-30] MEDS: ALPRAZolam 0.25 MG TAB PO PRN ×2 (06:00→12:55)
[2017-07-30] MEDS: AZITHROMYCIN INJ 500 MG in SODIUM CHLOR 0.9% 250 ML INJ 250 ML IV SCH (06:01)
[2017-07-30 07:06] LABS: BASOPHIL % 0.1 % (0.0-2.0); EOSINOPHIL % 0.2 % (0.0-4.0); HEMATOCRIT 26.9 % (39.0-51.0); HEMOGLOBIN 8.9 GM/DL (13.0-17.0); LYMPH % 6.1 % (9.0-44.0); LYMPHOCYTE # 0.8 TH/MM3 (1.0-4.8); MEAN CORPUSCULAR HEMOGLOBIN 28.7 PG (27.0-34.0); MEAN PLATELET VOLUME 8.3 FL (7.0-11.0); MONO % 6.5 % (0.0-8.0); MONOCYTE # 0.8 TH/MM3 (0-0.9); NEUT % 87.1 % (16.0-70.0); PLATELET COUNT 216 TH/MM3 (150-450); RED BLOOD COUNT 3.09 MIL/MM3 (4.50-5.90); RED CELL DISTRIBUTION WIDTH 17.6 % (11.6-17.2); WHITE BLOOD COUNT 12.6 TH/MM3 (4.0-11.0)
[2017-07-30 07:10] LABS: INTERNATIONAL NORMALIZED RATIO 5.5 RATIO; PROTHROMBIN TIME - PATIENT 54.9 SEC (9.8-11.6)
[2017-07-30 07:38] LABS: ALBUMIN 3.7 GM/DL (3.4-5.0); BICARBONATE 42.7 MEQ/L (21.0-32.0); CALCIUM 9.5 MG/DL (8.5-10.1); CREATININE 1.6 MG/DL (0.60-1.30); MAGNESIUM 2.1 MG/DL (1.5-2.5); PHOSPHORUS 3.1 MG/DL (2.5-4.9)
[2017-07-30] MEDS: FUROSEMIDE 40 MG/4 ML VIAL IV PUSH SCH ×2 (09:27→17:38)
[2017-07-30] MEDS: PANTOPRAZOLE SOD 40 MG DELAYED RELEASE TAB PO SCH ×2 (09:28→21:33)
[2017-07-30] MEDS: CARVEDILOL 12.5 MG TAB PO SCH ×2 (09:28→21:33)
[2017-07-30] MEDS: ASPIRIN 81 MG CHEW TAB PO SCH (09:28)
[2017-07-30] MEDS: predniSONE 10 MG TAB PO SCH ×2 (09:28→21:33)
[2017-07-30] MEDS: DOCUSATE SODIUM 50 MG/SENNA 8.6 MG TAB PO SCH ×2 (09:28→21:33)
[2017-07-30] MEDS: IRON SUCROSE INJ 100 MG in SODIUM CHLORIDE 0.9% INJ 100 ML IV SCH (10:19)
[2017-07-30] MEDS: SODIUM CHLORIDE 0.9% FLUSH 10 ML FLUSH IV FLUSH SCH ×2 (10:19→21:34)
--- NOTE | 2017-07-30 11:23 | HHI.PR ---
Subjective Remarks Patient is on 4L oxygen with good sats. Afebrile. Objective Vital Signs Vital Signs Date Time Temp Pulse Resp B/P (MAP) Pulse Ox O2 Delivery O2 Flow Rate FiO2 07/30/17 10:05 94 Nasal Cannula 4.00 07/30/17 08:00 98.5 60 24 122/60 (80) 98 07/30/17 06:00 60 07/30/17 05:00 60 07/30/17 04:24 98.6 60 20 110/55 (73) 97 07/30/17 04:23 60 07/30/17 03:00 60 07/30/17 02:00 60 07/30/17 00:01 60 07/30/17 00:01 98.6 60 24 121/57 (78) 98 07/30/17 00:01 98 Nasal Cannula 3.00 Bi-Pap 07/29/17 20:01 100 40 07/29/17 20:01 100 BiPAP 40 07/29/17 20:00 60 07/29/17 20:00 97.2 60 38 154/72 (99) 99 07/29/17 19:00 Nasal Cannula 3.00 Bi-Pap 07/29/17 18:04 100 Bi-Pap 40 07/29/17 18:00 59 07/29/17 16:00 60 07/29/17 16:00 97.0 60 19 129/62 (84) 94 07/29/17 15:40 20 07/29/17 14:00 65 07/29/17 12:00 98.0 59 27 147/66 (93) 100 07/29/17 12:00 60 I/O 07/29/17 07/29/17 07/29/17 07/30/17 07/30/17 07/30/17 07:00 15:00 23:00 07:00 15:00 23:00 Intake Total 1170 ml 340 ml 205 ml 420 ml Output Total 1350 ml 900 ml 1075 ml 850 ml Balance -180 ml -560 ml -870 ml -430 ml Intake Oral 720 ml 240 ml 100 ml 420 ml IV Total 450 ml 100 ml 105 ml Output Urine Total 1350 ml 900 ml 1075 ml 850 ml # Bowel Movements 0 0 0 0 Result Diagram: 07/30/1752207/30/17522 Other Results Last Impressions Chest X-Ray 07/29/17 0000 Signed Impressions: Service Date/Time: Saturday, July 29, 2017 07:54 - CONCLUSION: 1. Cardiomegaly with small bilateral effusions and interstitial prominence suggesting congestive failure. Exam is stable compared to previous. Ever Gray MD Objective Remarks GENERAL: Patient is on 4L oxygen looks comfortable. SKIN: Warm and dry. HEAD: Normocephalic. EYES: No scleral icterus. No injection or drainage. NECK: Supple, trachea midline. No JVD or lymphadenopathy. CARDIOVASCULAR: Regular rate and rhythm without murmurs, gallops, or rubs. RESPIRATORY: Breath sounds equal bilaterally. No accessory muscle use. GASTROINTESTINAL: Abdomen soft, non-tender, nondistended. MUSCULOSKELETAL: No cyanosis, or edema. B/L BKA noted Neuro: awake, alert A/P Assessment and Plan 1)Acute hypercapnic Resp Insuff 2)CHF, Atria fib 3)Acute on CKD 4)Leukocytosis 5)Anemia 6)DM 7)HTN 8)Coagulopathy PLAN Continue with oxygen keep sat >92% Bronchodilators ( DuoNeb) On Prednisone 10mg BID, will give Diamox 250mg IV x1 NIPPV PRN for resp distress Continue with abx ( Cefepime, Azithromycin) Continue with diuretics- on Lasix 40mg BID Continue treatment plan Jumana Peng MD Jul 30, 2017 11:23
[2017-07-30] MEDS: INSULIN DETEMIR 100 UNITS/ML VIAL SQ SCH ×2 (12:49→17:44)
[2017-07-30] MEDS: INSULIN ASPART SUPPLEMENTAL SCALE SQ SCH ×3 (12:49→21:35)
[2017-07-30] MEDS: RESP: ALBUTEROL 2.5 MG/IPRATROPIUM 0.5 MG NEB (SCH) NEB ×4 (13:13→23:22)
[2017-07-30] MEDS: MORPHINE SULFATE 15 MG TAB PO PRN (17:36)
--- NOTE | 2017-07-30 17:59 | HHI.PR ---
Subjective Remarks Respiratory status is not ideal but has improved through time. She is not breathing deeply. Anxiety medicines and pain medicines have been adjusted per patient requests that we transition towards his baseline pain treatments. Objective Vital Signs Date Time Temp Pulse Resp B/P (MAP) Pulse Ox O2 Delivery O2 Flow Rate FiO2 07/30/17 14:00 60 07/30/17 13:00 60 07/30/17 12:00 97.9 61 22 154/78 (103) 99 07/30/17 12:00 60 07/30/17 11:00 60 07/30/17 10:05 94 Nasal Cannula 4.00 07/30/17 10:00 60 07/30/17 09:00 60 07/30/17 08:00 60 07/30/17 08:00 98.5 60 24 122/60 (80) 98 07/30/17 07:00 60 07/30/17 06:00 60 07/30/17 05:00 60 07/30/17 04:24 98.6 60 20 110/55 (73) 97 07/30/17 04:23 60 07/30/17 03:00 60 07/30/17 02:00 60 07/30/17 00:01 60 07/30/17 00:01 98.6 60 24 121/57 (78) 98 07/30/17 00:01 98 Nasal Cannula 3.00 Bi-Pap 07/29/17 20:01 100 40 07/29/17 20:01 100 BiPAP 40 07/29/17 20:00 60 07/29/17 20:00 97.2 60 38 154/72 (99) 99 07/29/17 19:00 Nasal Cannula 3.00 Bi-Pap 07/29/17 18:04 100 Bi-Pap 40 07/29/17 18:00 59 I/O 07/29/17 07/29/17 07/29/17 07/30/17 07/30/17 07/30/17 07:00 15:00 23:00 07:00 15:00 23:00 Intake Total 1170 ml 340 ml 205 ml 420 ml 960 ml Output Total 1350 ml 900 ml 1075 ml 850 ml 1025 ml Balance -180 ml -560 ml -870 ml -430 ml -65 ml Intake Oral 720 ml 240 ml 100 ml 420 ml 960 ml IV Total 450 ml 100 ml 105 ml Output Urine Total 1350 ml 900 ml 1075 ml 850 ml 1025 ml # Bowel Movements 0 0 0 0 1 Result Diagram: 07/30/1752207/30/17522 Objective Remarks GENERAL: NAD, A&Ox3 HEAD: Normocephalic. NECK: Supple, trachea midline. No lymphadenopathy. EYES: No scleral icterus. No injection or drainage. CARDIOVASCULAR: Regular rate and rhythm without murmurs, gallops, or rubs. RESPIRATORY: Breath sounds equal bilaterally. No accessory muscle use. GASTROINTESTINAL: Abdomen soft, non-tender, nondistended. MUSCULOSKELETAL: No cyanosis, or edema. Left lower extremity amputation, chronic. SKIN: Warm and dry. Scar at sternum. NEURO: No focal neurological deficitis. A/P Problem List: (1) Acute respiratory failure ICD Code: J96.00 - Acute respiratory failure, unspecified whether with hypoxia or hypercapnia (2) Hypercarbia ICD Code: R06.89 - Other abnormalities of breathing (3) Congestive heart failure ICD Code: I50.9 - Heart failure, unspecified (4) S/P CABG x 3 ICD Code: Z95.1 - Presence of aortocoronary bypass graft Status: Acute (5) Status post below knee amputation of left lower extremity ICD Code: Z89.512 - Acquired absence of left leg below knee Status: Acute Assessment and Plan 66-year-old male admitted secondary to acute respiratory failure and hypercarbia Acute hypoxia Hypercarbic respiratory failure Leukocytosis Improved with BiPAP To need to monitor for stability Patient is off BiPAP when seen Duo nebs as needed Continue prednisone Pulmonology following Azithromycin Cefepime CHF exacerbation Atrial fibrillation Status post CABG 07/01/17 History of pacemaker Follow on telemetry Supportive care Continue aspirin Continue carvedilol Continue atorvastatin Hypertension Continue baseline treatment Follow blood pressures Adjust treatments as needed Elevated digoxin level Digoxin discontinued Hypertherapeutic INR Coumadin on hold Follow INR Acute kidney injury Chronic kidney disease stage III Nephrology following Follow renal function Avoid nephrotoxins Diabetes mellitus type 2 Follow blood sugars Insulin sliding scale Diabetic diet DVT Prophylaxis SCDEver Davis MD Jul 30, 2017 17:59
--- NOTE | 2017-07-30 19:26 | HHI.NPPN ---
Subjective Complaints: Shortness of Breath Renal Failure: Chronic, Stage III History of Present Illness Patient is a 66-year-old male with a past medical history significant for hypertension, atrial fibrillation anticoagulated on Coumadin, coronary artery disease status post CABG 3 on 07/01/17, peripheral vascular disease, hepatitis C, cirrhosis, diabetes mellitus, CKD, and chronic back pain. Presents to the emergency department for evaluation for SOB. Patient is on BIPAP with nitroglycerin gtt. The patient was discharged from [place] on to [facility]. Nephrology was consulted for worsening renal indices patients baseline creatinine is 1.50, patient has stage 3 CKD. Creatinine was found to be 2.40 and a GFR of 27 ml/min. During his stay at [facility] he was aggressive diuresed for increased lower extremity. Additional Remarks Feeling tired today. Review of Systems General Constitutional: Fatigue Respiratory Lungs: SOB Cardiovascular Cardiac Remarks Denies CP Gastrointestinal GI Remarks No abdominal pain Objective Data Data 07/30/17 07/31/17 19:00 07:00 Intake Total 960 ml Output Total 1025 ml Balance -65 ml Intake Oral 960 ml Output Urine Total 1025 ml # Bowel Movements 1 Vital Signs Date Time Temp Pulse Resp B/P (MAP) Pulse Ox O2 Delivery O2 Flow Rate FiO2 07/30/17 18:00 60 07/30/17 16:00 60 07/30/17 16:00 97.9 60 20 131/66 (87) 96 07/30/17 14:00 60 07/30/17 13:00 60 07/30/17 12:00 97.9 61 22 154/78 (103) 99 07/30/17 12:00 60 07/30/17 11:00 60 07/30/17 10:05 94 Nasal Cannula 4.00 07/30/17 10:00 60 07/30/17 09:00 60 07/30/17 08:00 60 07/30/17 08:00 98.5 60 24 122/60 (80) 98 07/30/17 07:00 60 07/30/17 06:00 60 07/30/17 05:00 60 07/30/17 04:24 98.6 60 20 110/55 (73) 97 07/30/17 04:23 60 07/30/17 03:00 60 07/30/17 02:00 60 07/30/17 00:01 60 07/30/17 00:01 98.6 60 24 121/57 (78) 98 07/30/17 00:01 98 Nasal Cannula 3.00 Bi-Pap 07/29/17 20:01 100 40 07/29/17 20:01 100 BiPAP 40 07/29/17 20:00 60 07/29/17 20:00 97.2 60 38 154/72 (99) 99 -: 07/30/17 0523 07/30/17 0523 Physical Exam Eyes Eye Exam: Pupils Equal Neck Neck Exam: Neck Supple Pulmonary Resp Exam: Breath Sounds Equal, Decreased Bases Cardiology CV Exam: Regular, Normal Sinus Rhythm Gastrointestinal/Abdomen GI Exam: Soft, Non-Tender, Bowel Sounds Present Genitourinary Exam: Clear Urine, Flank Non-Tender Integumentary Skin Exam: Clear, Warm, Dry Extremeties Extremities Exam: Moderate Edema, Pitting Edema Neurologic Neuro Exam: Alert, Awake, Oriented Psychiatric Psych Exam: Appropriate Responses Assessment/Plan Problem List: (1) FRANCISCO (acute kidney injury) ICD Codes: N17.9 - Acute kidney injury Status: Acute Plan: FRANCISCO on CKD stage 3 Patient was re admitted with fluid overload. He has chronic kidney disease, and developed FRANCISCO. CKD most likely form Diabetic nephropathy UA with 3 + protein. Plan Continue Smith to SD to maintain strict I+o Edema and SOB improving with Lasix Creatinine at stable- improved to 1.6 today HGB at 839, Venofer daily. Continue Lasix, follow the urine out put and BMP. (2) HTN (hypertension) ICD Codes: I10 - Essential (primary) hypertension (3) Diabetes mellitus ICD Codes: E11.9 - Diabetes mellitus Status: Acute (4) Chronic hyponatremia ICD Codes: E87.1 - Chronic hyponatremia Status: Acute (5) Chronic systolic CHF (congestive heart failure) ICD Codes: I50.22 - Chronic systolic congestive heart failure Status: Acute Problem Qualifiers (1) HTN (hypertension): Qualified Codes: I10 - Essential (primary) hypertension Ever Walsh MD Jul 30, 2017 19:26
[2017-07-30] MEDS: ATORVASTATIN 80 MG TAB PO SCH (21:33)
[2017-07-30] MEDS: ALPRAZolam 0.5 MG TAB PO PRN (21:44)
[2017-07-31] VITALS (25 sets, daily range): BP systolic 123–144; BP diastolic 68–91; PULSE 54–62; RESP 18–20; TEMP 97–98.3; O2SAT 97–100
[2017-07-31] MEDS: CEFEPIME INJ 1,000 MG in SODIUM CHLORIDE 0.9% INJ 100 ML IV SCH ×3 (03:25→19:58)
[2017-07-31] MEDS: CHLORHEXIDINE GLUCONATE 2 % 1 PACK (2 CLOTHS)(taper/protocol) TOPICAL SCH (03:28)
[2017-07-31] MEDS: RESP: ALBUTEROL 2.5 MG/IPRATROPIUM 0.5 MG NEB (SCH) NEB ×6 (03:39→22:10)
[2017-07-31] MEDS: MORPHINE SULFATE 15 MG TAB PO PRN ×3 (04:17→14:06)
[2017-07-31] MEDS: AZITHROMYCIN INJ 500 MG in SODIUM CHLOR 0.9% 250 ML INJ 250 ML IV SCH (05:05)
[2017-07-31] MEDS: INSULIN DETEMIR 100 UNITS/ML VIAL SQ SCH ×2 (05:06→17:09)
[2017-07-31 06:29] LABS: AUTOMATED NEUTROPHIL # 8.7 TH/MM3 (1.8-7.7); BASOPHIL % 0.1 % (0.0-2.0); EOSINOPHIL # 0.1 TH/MM3 (0-0.4); EOSINOPHIL % 0.5 % (0.0-4.0); HEMATOCRIT 23.9 % (39.0-51.0); LYMPH % 5.6 % (9.0-44.0); LYMPHOCYTE # 0.6 TH/MM3 (1.0-4.8); MEAN CELL VOLUME 87.9 FL (80.0-100.0); MEAN CORPUSCULAR HEMOGLOBIN 29.3 PG (27.0-34.0); MEAN CORPUSCULAR HGB CONC 33.3 % (32.0-36.0); MEAN PLATELET VOLUME 8.3 FL (7.0-11.0); MONO % 6.8 % (0.0-8.0); MONOCYTE # 0.7 TH/MM3 (0-0.9); PLATELET COUNT 177 TH/MM3 (150-450); RED BLOOD COUNT 2.72 MIL/MM3 (4.50-5.90); RED CELL DISTRIBUTION WIDTH 17.7 % (11.6-17.2)
[2017-07-31 07:04] LABS: INTERNATIONAL NORMALIZED RATIO 4.4 RATIO; PROTHROMBIN TIME - PATIENT 43.9 SEC (9.8-11.6)
[2017-07-31 07:17] LABS: ALBUMIN 3.3 GM/DL (3.4-5.0); ALKALINE PHOSPHATASE 153 U/L (45-117); ALT (GPT) 31 U/L (12-78); AST (GOT) 21 U/L (15-37); BICARBONATE 38.6 MEQ/L (21.0-32.0); BLOOD UREA NITROGEN 98 MG/DL (7-18); CALCIUM 8.7 MG/DL (8.5-10.1); CHLORIDE 90 MEQ/L (98-107); CREATININE 1.82 MG/DL (0.60-1.30); GLOMERULAR FILTRATION RATE 38 ML/MIN (>89); GLUCOSE,RANDOM 238 MG/DL (74-106); SODIUM (NA) 133 MEQ/L (136-145); TOTAL BILIRUBIN ADULT 1.2 MG/DL (0.2-1.0); TOTAL PROTEIN 7.3 GM/DL (6.4-8.2)
[2017-07-31] MEDS: DOCUSATE SODIUM 50 MG/SENNA 8.6 MG TAB PO SCH ×2 (07:44→19:58)
[2017-07-31] MEDS: predniSONE 10 MG TAB PO SCH ×2 (07:49→19:58)
[2017-07-31] MEDS: FUROSEMIDE 40 MG/4 ML VIAL IV PUSH SCH ×2 (07:49→17:09)
[2017-07-31] MEDS: ASPIRIN 81 MG CHEW TAB PO SCH (07:50)
[2017-07-31] MEDS: CARVEDILOL 12.5 MG TAB PO SCH ×2 (07:50→19:59)
[2017-07-31] MEDS: SODIUM CHLORIDE 0.9% FLUSH 10 ML FLUSH IV FLUSH SCH ×2 (07:50→19:59)
[2017-07-31] MEDS: PANTOPRAZOLE SOD 40 MG DELAYED RELEASE TAB PO SCH ×2 (07:50→19:58)
[2017-07-31] MEDS: ALPRAZolam 0.5 MG TAB PO PRN ×2 (07:51→19:58)
[2017-07-31] MEDS: INSULIN ASPART SUPPLEMENTAL SCALE SQ SCH ×4 (07:51→20:02)
--- NOTE | 2017-07-31 10:05 | HHI.PR ---
Subjective Remarks Patient is on 2L oxygen with good sats. Afebrile. Objective Vital Signs Vital Signs Date Time Temp Pulse Resp B/P (MAP) Pulse Ox O2 Delivery O2 Flow Rate FiO2 07/31/17 09:01 99 Nasal Cannula 2.00 07/31/17 06:00 60 07/31/17 05:00 59 07/31/17 04:00 60 07/31/17 03:59 98.3 60 20 123/68 (86) 100 07/31/17 03:59 Nasal Cannula 2.00 07/31/17 03:00 59 07/31/17 02:00 54 07/31/17 01:00 59 07/31/17 00:00 60 07/30/17 23:47 98.1 60 22 141/69 (93) 99 07/30/17 23:47 Nasal Cannula 2.00 07/30/17 23:00 59 07/30/17 22:00 54 07/30/17 21:08 99 Nasal Cannula 2.00 07/30/17 21:00 58 07/30/17 20:00 98.6 60 24 144/68 (93) 98 07/30/17 20:00 Nasal Cannula 2.00 07/30/17 20:00 60 07/30/17 18:00 60 07/30/17 16:00 60 07/30/17 16:00 97.9 60 20 131/66 (87) 96 07/30/17 14:00 60 07/30/17 13:00 60 07/30/17 12:00 97.9 61 22 154/78 (103) 99 07/30/17 12:00 60 07/30/17 11:00 60 07/30/17 10:05 94 Nasal Cannula 4.00 I/O 07/30/17 07/30/17 07/30/17 07/31/17 07/31/17 07/31/17 07:00 15:00 23:00 07:00 15:00 23:00 Intake Total 420 ml 960 ml 1410 ml Output Total 850 ml 1025 ml 1200 ml Balance -430 ml -65 ml 210 ml Intake Oral 420 ml 960 ml 960 ml IV Total 450 ml Output Urine Total 850 ml 1025 ml 1200 ml # Bowel Movements 0 1 0 Result Diagram: 07/31/17 0542 07/31/1742 Other Results Last Impressions Chest X-Ray 07/29/17 0000 Signed Impressions: Service Date/Time: Saturday, July 29, 2017 07:54 - CONCLUSION: 1. Cardiomegaly with small bilateral effusions and interstitial prominence suggesting congestive failure. Exam is stable compared to previous. Ever Gray MD Objective Remarks GENERAL: Patient is on 2L oxygen looks comfortable. SKIN: Warm and dry. HEAD: Normocephalic. EYES: No scleral icterus. No injection or drainage. NECK: Supple, trachea midline. No JVD or lymphadenopathy. CARDIOVASCULAR: Regular rate and rhythm without murmurs, gallops, or rubs. RESPIRATORY: Breath sounds equal bilaterally. No accessory muscle use. GASTROINTESTINAL: Abdomen soft, non-tender, nondistended. MUSCULOSKELETAL: No cyanosis, or edema. B/L BKA noted Neuro: awake, alert A/P Assessment and Plan 1)Acute hypercapnic Resp Insuff 2)CHF, Atria fib 3)Acute on CKD 4)Leukocytosis 5)Anemia 6)DM 7)HTN 8)Coagulopathy PLAN Continue with oxygen keep sat >92% Bronchodilators ( DuoNeb) On Prednisone 10mg BID, will give Diamox 250mg IV x1 NIPPV PRN for resp distress Continue with abx ( Cefepime, Azithromycin) Check CXR in am Continue with diuretics- on Lasix 40mg BID Monitor CBC, coags- INR 4.4 today Continue treatment plan Jumana Peng MD Jul 31, 2017 10:05
--- NOTE | 2017-07-31 12:28 | HHI.NPPN ---
Subjective Complaints: Shortness of Breath Renal Failure: Chronic, Stage III History of Present Illness Patient is a 66-year-old male with a past medical history significant for hypertension, atrial fibrillation anticoagulated on Coumadin, coronary artery disease status post CABG 3 on 07/01/17, peripheral vascular disease, hepatitis C, cirrhosis, diabetes mellitus, CKD, and chronic back pain. Presents to the emergency department for evaluation for SOB. Patient is on BIPAP with nitroglycerin gtt. The patient was discharged from [place] on to [facility]. Nephrology was consulted for worsening renal indices patients baseline creatinine is 1.50, patient has stage 3 CKD. Creatinine was found to be 2.40 and a GFR of 27 ml/min. During his stay at [place] [facility] he was aggressive diuresed for increased lower extremity. Additional Remarks no acute complaints, ongoing fatigue. Review of Systems General Constitutional: Fatigue Respiratory Lungs: SOB Cardiovascular Cardiac Remarks Denies CP Gastrointestinal GI Remarks No abdominal pain Objective Data Data Vital Signs Date Time Temp Pulse Resp B/P (MAP) Pulse Ox O2 Delivery O2 Flow Rate FiO2 07/31/17 10:15 18 07/31/17 09:01 99 Nasal Cannula 2.00 07/31/17 08:00 97.5 62 18 123/70 (87) 100 07/31/17 08:00 Nasal Cannula 2.00 07/31/17 07:15 60 07/31/17 06:00 60 07/31/17 05:00 59 07/31/17 04:00 60 07/31/17 03:59 98.3 60 20 123/68 (86) 100 07/31/17 03:59 Nasal Cannula 2.00 07/31/17 03:00 59 07/31/17 02:00 54 07/31/17 01:00 59 07/31/17 00:00 60 07/30/17 23:47 98.1 60 22 141/69 (93) 99 07/30/17 23:47 Nasal Cannula 2.00 07/30/17 23:00 59 07/30/17 22:00 54 07/30/17 21:08 99 Nasal Cannula 2.00 07/30/17 21:00 58 07/30/17 20:00 98.6 60 24 144/68 (93) 98 07/30/17 20:00 Nasal Cannula 2.00 07/30/17 20:00 60 07/30/17 18:00 60 07/30/17 16:00 60 07/30/17 16:00 97.9 60 20 131/66 (87) 96 07/30/17 14:00 60 07/30/17 13:00 60 -: 07/31/17 0542 07/31/17 0542 Physical Exam Eyes Eye Exam: Pupils Equal Neck Neck Exam: Neck Supple Pulmonary Resp Exam: Breath Sounds Equal, Decreased Bases Cardiology CV Exam: Regular, Normal Sinus Rhythm Gastrointestinal/Abdomen GI Exam: Soft, Non-Tender, Bowel Sounds Present Genitourinary Exam: Clear Urine, Flank Non-Tender Integumentary Skin Exam: Clear, Warm, Dry Extremeties Extremities Exam: Moderate Edema, Pitting Edema Neurologic Neuro Exam: Alert, Awake, Oriented Psychiatric Psych Exam: Appropriate Responses Assessment/Plan Problem List: (1) FRANCISCO (acute kidney injury) ICD Codes: N17.9 - Acute kidney injury Status: Acute Plan: FRANCISCO on CKD stage 3 Patient was re admitted with fluid overload. He has chronic kidney disease, and developed FRANCISCO. CKD most likely form Diabetic nephropathy UA with 3 + protein. Creatinine 1.6 -> 1.8 2.2L UOP/24 hours Plan Continue Smith to SD to maintain strict I+o Edema and SOB improving with Lasix 40mg IV BID HGB at 8.0, Venofer daily. Continue Lasix, follow the urine out put and BMP. (2) HTN (hypertension) ICD Codes: I10 - Essential (primary) hypertension (3) Diabetes mellitus ICD Codes: E11.9 - Diabetes mellitus Status: Acute (4) Chronic hyponatremia ICD Codes: E87.1 - Chronic hyponatremia Status: Chronic (5) Chronic systolic CHF (congestive heart failure) ICD Codes: I50.22 - Chronic systolic congestive heart failure Status: Acute Problem Qualifiers (1) HTN (hypertension): Qualified Codes: I10 - Essential (primary) hypertension Ever Walsh MD Jul 31, 2017 12:28
--- NOTE | 2017-07-31 14:08 | HHI.PR ---
Subjective Remarks Respiratory status is not back to baseline but has improved slightly. Patient has not preserved to start working with PT. No new complaints. He was able to tolerate the night without BiPAP. Objective Vital Signs Date Time Temp Pulse Resp B/P (MAP) Pulse Ox O2 Delivery O2 Flow Rate FiO2 07/31/17 12:56 97.8 60 18 124/68 (86) 100 07/31/17 12:00 97.0 61 18 144/91 (108) 97 07/31/17 12:00 60 07/31/17 10:15 18 07/31/17 09:01 99 Nasal Cannula 2.00 07/31/17 08:00 97.5 62 18 123/70 (87) 100 07/31/17 08:00 Nasal Cannula 2.00 07/31/17 07:15 60 07/31/17 06:00 60 07/31/17 05:00 59 07/31/17 04:00 60 07/31/17 03:59 98.3 60 20 123/68 (86) 100 07/31/17 03:59 Nasal Cannula 2.00 07/31/17 03:00 59 07/31/17 02:00 54 07/31/17 01:00 59 07/31/17 00:00 60 07/30/17 23:47 98.1 60 22 141/69 (93) 99 07/30/17 23:47 Nasal Cannula 2.00 07/30/17 23:00 59 07/30/17 22:00 54 07/30/17 21:08 99 Nasal Cannula 2.00 07/30/17 21:00 58 07/30/17 20:00 98.6 60 24 144/68 (93) 98 07/30/17 20:00 Nasal Cannula 2.00 07/30/17 20:00 60 07/30/17 18:00 60 07/30/17 16:00 60 07/30/17 16:00 97.9 60 20 131/66 (87) 96 I/O 07/30/17 07/30/17 07/30/17 07/31/17 07/31/17 07/31/17 07:00 15:00 23:00 07:00 15:00 23:00 Intake Total 420 ml 960 ml 1410 ml Output Total 850 ml 1025 ml 1200 ml Balance -430 ml -65 ml 210 ml Intake Oral 420 ml 960 ml 960 ml IV Total 450 ml Output Urine Total 850 ml 1025 ml 1200 ml # Bowel Movements 0 1 0 Result Diagram: 07/31/17 0542 07/31/17 0542 Objective Remarks GENERAL: NAD, A&Ox3 HEAD: Normocephalic. NECK: Supple, trachea midline. No lymphadenopathy. EYES: No scleral icterus. No injection or drainage. CARDIOVASCULAR: Regular rate and rhythm without murmurs, gallops, or rubs. RESPIRATORY: Breath sounds equal bilaterally. No accessory muscle use. GASTROINTESTINAL: Abdomen soft, non-tender, nondistended. MUSCULOSKELETAL: No cyanosis, or edema. Left lower extremity amputation, chronic. SKIN: Warm and dry. Scar at sternum. NEURO: No focal neurological deficitis. A/P Problem List: (1) Acute respiratory failure ICD Code: J96.00 - Acute respiratory failure, unspecified whether with hypoxia or hypercapnia (2) Hypercarbia ICD Code: R06.89 - Other abnormalities of breathing (3) Congestive heart failure ICD Code: I50.9 - Heart failure, unspecified (4) S/P CABG x 3 ICD Code: Z95.1 - Presence of aortocoronary bypass graft Status: Acute (5) Status post below knee amputation of left lower extremity ICD Code: Z89.512 - Acquired absence of left leg below knee Status: Acute Assessment and Plan 66-year-old male admitted secondary to acute respiratory failure and hypercarbia. No recurrence of hypercarbia overnight without BiPAP. Continue to work with physical therapy. Acute hypoxia Hypercarbic respiratory failure Leukocytosis Improved with BiPAP To need to monitor for stability Patient is off BiPAP when seen Duo nebs as needed Continue prednisone Pulmonology following Azithromycin Cefepime CHF exacerbation Atrial fibrillation Status post CABG 07/01/17 History of pacemaker Follow on telemetry Supportive care Continue aspirin Continue carvedilol Continue atorvastatin Hypertension Continue baseline treatment Follow blood pressures Adjust treatments as needed Elevated digoxin level Digoxin discontinued Hypertherapeutic INR Coumadin on hold Follow INR Acute kidney injury Chronic kidney disease stage III Nephrology following Follow renal function Avoid nephrotoxins Diabetes mellitus type 2 Follow blood sugars Insulin sliding scale Diabetic diet DVT Prophylaxis SCDs Ever Rubalcava MD Jul 31, 2017 14:08
[2017-07-31] MEDS: ATORVASTATIN 80 MG TAB PO SCH (19:58)
[2017-08-01] VITALS (26 sets, daily range): BP systolic 109–126; BP diastolic 57–69; PULSE 57–63; RESP 18–20; TEMP 97.6–98.8; O2SAT 94–100
[2017-08-01] MEDS: RESP: ALBUTEROL 2.5 MG/IPRATROPIUM 0.5 MG NEB (SCH) NEB ×6 (03:11→20:46)
[2017-08-01] MEDS: MORPHINE SULFATE 15 MG TAB PO PRN ×4 (03:34→20:37)
[2017-08-01] MEDS: CEFEPIME INJ 1,000 MG in SODIUM CHLORIDE 0.9% INJ 100 ML IV SCH ×3 (03:35→20:24)
[2017-08-01] MEDS: AZITHROMYCIN INJ 500 MG in SODIUM CHLOR 0.9% 250 ML INJ 250 ML IV SCH (04:57)
[2017-08-01] MEDS: INSULIN DETEMIR 100 UNITS/ML VIAL SQ SCH ×2 (05:03→17:35)
--- NOTE | 2017-08-01 05:42 | RADRPT ---
EXAM DATE/TIME: 08/01/2017 04:33 [facility] COMPARISON: CHEST SINGLE AP, July 29, 2017, 7:54. INDICATIONS : Shortness of breath, possible pulmonary disease. MEDICAL HISTORY : Congestive heart failure. Pulmonary edema SURGICAL HISTORY : Pacemaker. CABG. ENCOUNTER: Subsequent ACUITY: 4 - 6 days PAIN SCORE: 0/10 LOCATION: Bilateral chest FINDINGS: Stable AICD device. Small bilateral pleural effusions with associated bibasilar airspace disease. Car diomediastinal contours are stable. Remainder of the exam is unchanged. CONCLUSION: 1. Cardiomegaly with positive fluid balance. 2. Stable small bilateral pleural effusions and associated lower lobe airspace disease. Lauro Thompson MD on August 01, 2017 at 5:41 Board Certified Radiologist. This report was verified electronically.
[2017-08-01 06:43] LABS: AUTOMATED NEUTROPHIL # 8.5 TH/MM3 (1.8-7.7); BASOPHIL % 0.2 % (0.0-2.0); EOSINOPHIL # 0.2 TH/MM3 (0-0.4); EOSINOPHIL % 2.1 % (0.0-4.0); HEMATOCRIT 25.6 % (39.0-51.0); HEMOGLOBIN 8.5 GM/DL (13.0-17.0); LYMPH % 10.3 % (9.0-44.0); LYMPHOCYTE # 1.1 TH/MM3 (1.0-4.8); MEAN CELL VOLUME 88.8 FL (80.0-100.0); MEAN CORPUSCULAR HEMOGLOBIN 29.4 PG (27.0-34.0); MEAN CORPUSCULAR HGB CONC 33.1 % (32.0-36.0); MEAN PLATELET VOLUME 8.7 FL (7.0-11.0); MONO % 8.5 % (0.0-8.0); MONOCYTE # 0.9 TH/MM3 (0-0.9); NEUT % 78.9 % (16.0-70.0); PLATELET COUNT 198 TH/MM3 (150-450); RED BLOOD COUNT 2.88 MIL/MM3 (4.50-5.90); RED CELL DISTRIBUTION WIDTH 17.8 % (11.6-17.2); WHITE BLOOD COUNT 10.8 TH/MM3 (4.0-11.0)
[2017-08-01 06:51] LABS: PROTHROMBIN TIME - PATIENT 30.1 SEC (9.8-11.6)
[2017-08-01 07:15] LABS: ALBUMIN 3.7 GM/DL (3.4-5.0); ALKALINE PHOSPHATASE 168 U/L (45-117); ALT (GPT) 33 U/L (12-78); AST (GOT) 21 U/L (15-37); BICARBONATE 37.6 MEQ/L (21.0-32.0); BLOOD UREA NITROGEN 95 MG/DL (7-18); CALCIUM 9.5 MG/DL (8.5-10.1); CHLORIDE 89 MEQ/L (98-107); CREATININE 1.97 MG/DL (0.60-1.30); GLOMERULAR FILTRATION RATE 34 ML/MIN (>89); GLUCOSE,RANDOM 210 MG/DL (74-106); SODIUM (NA) 134 MEQ/L (136-145); TOTAL BILIRUBIN ADULT 1.2 MG/DL (0.2-1.0); TOTAL PROTEIN 7.5 GM/DL (6.4-8.2)
[2017-08-01] MEDS: INSULIN ASPART SUPPLEMENTAL SCALE SQ SCH ×4 (08:00→22:00)
[2017-08-01] MEDS: predniSONE 10 MG TAB PO SCH ×2 (08:09→20:25)
[2017-08-01] MEDS: FUROSEMIDE 40 MG/4 ML VIAL IV PUSH SCH ×2 (08:09→16:58)
[2017-08-01] MEDS: ASPIRIN 81 MG CHEW TAB PO SCH (08:09)
[2017-08-01] MEDS: DOCUSATE SODIUM 50 MG/SENNA 8.6 MG TAB PO SCH ×2 (08:10→20:25)
[2017-08-01] MEDS: CARVEDILOL 12.5 MG TAB PO SCH ×2 (08:10→20:24)
[2017-08-01] MEDS: ALPRAZolam 0.5 MG TAB PO PRN ×2 (08:10→16:58)
[2017-08-01] MEDS: PANTOPRAZOLE SOD 40 MG DELAYED RELEASE TAB PO SCH ×2 (08:10→20:25)
[2017-08-01] MEDS: SODIUM CHLORIDE 0.9% FLUSH 10 ML FLUSH IV FLUSH SCH ×2 (08:27→20:24)
[2017-08-01 09:55] LABS: LYMPHOCYTES 11 % (9-44); MONOCYTES 9 % (0-8); MYELOCYTES 2 % (0-0); NEUTROPHIL # MANUAL DIFF 8.3 TH/MM3 (1.8-7.7); POLYS (SEG NEUTROPHILS) 75 % (16-70)
--- NOTE | 2017-08-01 15:14 | PD.CAR.PN ---
CVT Progress Note Subjective/Hospital Course: 66 year-old male, patient of Dr. Del Toro, Dr. Di Dutton, presented to the emergency room with substernal chest pain on 06/23/2017, also with some shortness of breath, was noted to be severely hypertensive with a systolic blood pressure close to 200. He has an extensive cardiac background. 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 Troponin was 1.98 pounds. The patient underwent cardiac cath by for [id number] MS, showed an ejection fraction of 25%, 50% left ostial lesion, 95% proximal LAD. The diagonal had an 80% stenosis in the proximal lesion, the circ was 40%. The OM 90%. The RCA 50%. He also underwent 2-D echocardiogram, that showed an EF of 45%. He had some mild right atrial dilation, mild mitral valve regurgitation, tricuspid regurgitation. We were consulted to evaluate for coronary artery bypass grafting. PMH: chronic atrial fibrillation on Coumadin, hypertension, congestive heart failure with prior EF of 30-35, EF per cath was 25%. He has an ICD placement on the left upper chest, diabetes mellitus, chronic back pain. HX femoral aortic aneurysm, hepatitis C, liver cirrhosis, chronic back pain, Peripheral arterial disease. PAST SURGICAL HISTORY: ICD placement, Left [id number] amputation, Amputation of the right forefoot, Right carotid endarterectomy, Liver biopsy, Abdominal aortic aneurysm repair. surgery: CABG x 3, BUSCH to LAD - fair, SVG to OM1 - fair, SVG to D1 - poor, EVH (R) post op course included wide complex tachycardia , FRANCISCO , afib, diuresed well then transferred to [place] [facility] 07/06 then dc to [facility] on 07/25 lasted short time, became very SOB and wa re- admitted to [facility] for CHF exacerbation / hypoxemia requiring BIPAP ventilation BNP 905, trop 0.15 CXR: small bilateral effusion and evidence of Heart failure / he has been aggressively diuresed and is now being followed by [facility] and nephrology ECHO: reduced EF ( was 45 at last admission, , no pericardial effusion, small left pleural effusion ) pt is responding to diuresis , nephro consulted regarding CKD, FRANCISCO appreciate CCM would recommend transfer to , wean off steroids continue anticoagulation 08/01 on 2 liter nasal cannula prosthetic leg being returned from [facility] sternum and EVH site stable , still has significant lower ext edema agree with diuretics no further CVS input Objective: GENERAL: A&O x 3 SKIN: Warm and dry. sternum intact and well approximated / + edema both lower ext HEAD: Normocephalic. EYES: No scleral icterus. No injection or drainage. NECK: Supple, trachea midline. No JVD or lymphadenopathy. CARDIOVASCULAR: Regular rate and rhythm without murmurs, gallops, or rubs. RESPIRATORY: Breath sounds equal bilaterally. No accessory muscle use. GASTROINTESTINAL: Abdomen soft, non-tender, nondistended. MUSCULOSKELETAL: No cyanosis, or edema. BACK: Nontender without obvious deformity. No CVA tenderness. Vital Signs Date Time Temp Pulse Resp B/P (MAP) Pulse Ox O2 Delivery O2 Flow Rate FiO2 08/01/17 14:00 60 08/01/17 13:00 60 08/01/17 12:00 61 08/01/17 11:00 60 08/01/17 11:00 94 Nasal Cannula 2.00 08/01/17 11:00 98.3 60 20 109/57 (74) 95 08/01/17 10:00 60 08/01/17 09:00 60 08/01/17 08:14 99 Nasal Cannula 2.00 08/01/17 08:00 60 08/01/17 07:15 94 Nasal Cannula 2.00 08/01/17 07:15 94 Nasal Cannula 2.00 08/01/17 07:15 61 08/01/17 07:15 98.8 60 20 120/62 (81) 94 08/01/17 06:00 63 08/01/17 05:00 58 08/01/17 04:00 60 08/01/17 04:00 Nasal Cannula 2.00 08/01/17 04:00 98.1 60 18 119/69 (86) 99 08/01/17 03:00 62 08/01/17 02:00 59 08/01/17 01:00 61 08/01/17 00:00 60 08/01/17 00:00 98.6 60 18 124/65 (84) 98 08/01/17 00:00 Nasal Cannula 2.00 07/31/17 23:00 61 07/31/17 22:00 59 07/31/17 22:00 100 Nasal Cannula 2.00 07/31/17 21:00 61 07/31/17 20:00 60 07/31/17 20:00 98.3 60 20 134/68 (90) 100 07/31/17 20:00 Nasal Cannula 2.00 07/31/17 17:00 98.0 60 18 125/70 (88) 97 07/31/17 17:00 61 07/31/17 16:00 60 Labs: Laboratory Tests Test 08/01/17 05:20 White Blood Count 10.8 TH/MM3 (4.0-11.0) Red Blood Count 2.88 MIL/MM3 (4.50-5.90) Hemoglobin 8.5 GM/DL (13.0-17.0) Hematocrit 25.6 % (39.0-51.0) Mean Corpuscular Volume 88.8 FL (80.0-100.0) Mean Corpuscular Hemoglobin 29.4 PG (27.0-34.0) Mean Corpuscular Hemoglobin Concent 33.1 % (32.0-36.0) Red Cell Distribution Width 17.8 % (11.6-17.2) Platelet Count 198 TH/MM3 (150-450) Mean Platelet Volume 8.7 FL (7.0-11.0) Neutrophils (%) (Auto) 78.9 % (16.0-70.0) Lymphocytes (%) (Auto) 10.3 % (9.0-44.0) Monocytes (%) (Auto) 8.5 % (0.0-8.0) Eosinophils (%) (Auto) 2.1 % (0.0-4.0) Basophils (%) (Auto) 0.2 % (0.0-2.0) Neutrophils # (Auto) 8.5 TH/MM3 (1.8-7.7) Lymphocytes # (Auto) 1.1 TH/MM3 (1.0-4.8) Monocytes # (Auto) 0.9 TH/MM3 (0-0.9) Eosinophils # (Auto) 0.2 TH/MM3 (0-0.4) Basophils # (Auto) 0.0 TH/MM3 (0-0.2) CBC Comment AUTO DIFF Differential Total Cells Counted 100 Neutrophils % (Manual) 75 % (16-70) Lymphocytes % 11 % (9-44) Monocytes % 9 % (0-8) Eosinophils % 3 % (0-4) Neutrophils # (Manual) 8.3 TH/MM3 (1.8-7.7) Myelocytes 2 % (0-0) Differential Comment FINAL DIFF MANUAL Platelet Estimate NORMAL (NORMAL) Platelet Morphology Comment NORMAL (NORMAL) Prothrombin Time 30.1 SEC (9.8-11.6) Prothromb Time International Ratio 3.0 RATIO Blood Urea Nitrogen 95 MG/DL (7-18) Creatinine 1.97 MG/DL (0.60-1.30) Random Glucose 210 MG/DL (74-106) Total Protein 7.5 GM/DL (6.4-8.2) Albumin 3.7 GM/DL (3.4-5.0) Calcium Level 9.5 MG/DL (8.5-10.1) Alkaline Phosphatase 168 U/L (45-117) Aspartate Amino Transf (AST/SGOT) 21 U/L (15-37) Alanine Aminotransferase (ALT/SGPT) 33 U/L (12-78) Total Bilirubin 1.2 MG/DL (0.2-1.0) Sodium Level 134 MEQ/L (136-145) Potassium Level 3.7 MEQ/L (3.5-5.1) Chloride Level 89 MEQ/L (98-107) Carbon Dioxide Level 37.6 MEQ/L (21.0-32.0) Anion Gap 7 MEQ/L (5-15) Estimat Glomerular Filtration Rate 34 ML/MIN (>89) Result Diagram: 08/01/1751908/01/17519 (1) Ulcer of right heel Plan: wound care following (2) CKD (chronic kidney disease) stage 3, GFR 30-59 ml/min (3) DM (diabetes mellitus) Plan: on insulin ss (4) CAD (coronary artery disease) (5) A-fib (6) CHF (congestive heart failure) Plan: diuresis (7) Status post below knee amputation of left lower extremity (8) S/P CABG x 3 Plan: ASA, statin , BB continue pulm toileting PT/OT no further CVS input, will sign off Problem Qualifiers (1) CHF (congestive heart failure): Qualified Codes: I50.9 - Heart failure, unspecified Nika Egan Aug 01, 2017 15:14
--- NOTE | 2017-08-01 15:42 | HHI.NPPN ---
Subjective Complaints: Shortness of Breath Renal Failure: Chronic, Stage III History of Present Illness Patient is a 66-year-old male with a past medical history significant for hypertension, atrial fibrillation anticoagulated on Coumadin, coronary artery disease status post CABG 3 on 07/01/17, peripheral vascular disease, hepatitis C, cirrhosis, diabetes mellitus, CKD, and chronic back pain. Presents to the emergency department for evaluation for SOB. Patient is on BIPAP with nitroglycerin gtt. The patient was discharged from [facility] to [facility]. Nephrology was consulted for worsening renal indices patients baseline creatinine is 1.50, patient has stage 3 CKD. Creatinine was found to be 2.40 and a GFR of 27 ml/min. During his stay at [facility] he was aggressive diuresed for increased lower extremity. Additional Remarks Resting OOB in chair. Lower extremity elevated. Continues to have fatigue and poor appetite (Corinne Vizcaino) Review of Systems General Constitutional: Fatigue (Corinne Vizcaino) Cardiovascular Cardiac Remarks Denies CP (Corinne Vizcaino) Gastrointestinal GI Remarks No abdominal pain (Corinne Vizcaino) Objective Data Data Vital Signs Date Time Temp Pulse Resp B/P (MAP) Pulse Ox O2 Delivery O2 Flow Rate FiO2 08/01/17 15:00 94 Nasal Cannula 2.00 08/01/17 15:00 98.5 60 20 118/62 (80) 94 08/01/17 15:00 60 08/01/17 14:00 60 08/01/17 13:00 60 08/01/17 12:00 61 08/01/17 11:00 60 08/01/17 11:00 94 Nasal Cannula 2.00 08/01/17 11:00 98.3 60 20 109/57 (74) 95 08/01/17 10:00 60 08/01/17 09:00 60 08/01/17 08:14 99 Nasal Cannula 2.00 08/01/17 08:00 60 08/01/17 07:15 94 Nasal Cannula 2.00 08/01/17 07:15 94 Nasal Cannula 2.00 08/01/17 07:15 61 08/01/17 07:15 98.8 60 20 120/62 (81) 94 08/01/17 06:00 63 08/01/17 05:00 58 08/01/17 04:00 60 08/01/17 04:00 Nasal Cannula 2.00 08/01/17 04:00 98.1 60 18 119/69 (86) 99 08/01/17 03:00 62 08/01/17 02:00 59 08/01/17 01:00 61 08/01/17 00:00 60 08/01/17 00:00 98.6 60 18 124/65 (84) 98 08/01/17 00:00 Nasal Cannula 2.00 07/31/17 23:00 61 07/31/17 22:00 59 07/31/17 22:00 100 Nasal Cannula 2.00 07/31/17 21:00 61 07/31/17 20:00 60 07/31/17 20:00 98.3 60 20 134/68 (90) 100 07/31/17 20:00 Nasal Cannula 2.00 07/31/17 17:00 98.0 60 18 125/70 (88) 97 07/31/17 17:00 61 07/31/17 16:00 60 (Corinne Vizcaino) -: 08/01/17 0520 08/01/17 0520 Physical Exam Eyes Eye Exam: Pupils Equal (Corinne Vizcaino) Neck Neck Exam: Neck Supple (Corinne Vizcaino) Pulmonary Resp Exam: Breath Sounds Equal, Decreased Bases (Corinne Vizcaino) Cardiology CV Exam: Regular, Normal Sinus Rhythm (Corinne Vizcaino) Gastrointestinal/Abdomen GI Exam: Soft, Non-Tender, Bowel Sounds Present (Corinne Vizcaino) Genitourinary Exam: Clear Urine, Flank Non-Tender (Corinne Vizcaino) Integumentary Skin Exam: Clear, Warm, Dry (Corinne Vizcaino) Extremeties Extremities Exam: Moderate Edema, Pitting Edema (Corinne Vizcaino) Neurologic Neuro Exam: Alert, Awake, Oriented (Corinne Vizcaino) Psychiatric Psych Exam: Appropriate Responses (Corinne Vizcaino) Assessment/Plan Problem List: (1) FRANCISCO (acute kidney injury) ICD Codes: N17.9 - Acute kidney injury Status: Acute Plan: FRANCISCO on CKD stage 3 Patient was re admitted with fluid overload. He has chronic kidney disease, and developed FRANCISCO. CKD most likely form Diabetic nephropathy UA with 3 + protein. Creatinine at 1.97 3.1 L UOP/24 hours Plan Continue maintain strict I+o Ok to remove Indwelling glass catheter Continue Lasix, follow the urine out put and BMP. (2) HTN (hypertension) ICD Codes: I10 - Essential (primary) hypertension (3) Diabetes mellitus ICD Codes: E11.9 - Diabetes mellitus Status: Acute (4) Chronic hyponatremia ICD Codes: E87.1 - Chronic hyponatremia Status: Chronic (5) Chronic systolic CHF (congestive heart failure) ICD Codes: I50.22 - Chronic systolic congestive heart failure Status: Acute (Corinne Vizcaino) Problem List: (1) FRANCISCO (acute kidney injury) ICD Codes: N17.9 - Acute kidney injury Status: Acute Plan: FRANCISCO on CKD stage 3 Patient was re admitted with fluid overload. He has chronic kidney disease, and developed FRANCISCO. CKD most likely form Diabetic nephropathy UA with 3 + protein. Creatinine at 1.97 3.1 L UOP/24 hours Plan Continue maintain strict I+o Ok to remove Indwelling Glass catheter Continue Lasix, follow the urine out put and BMP. Patient seen and examined, agree with above. Continue diuresis, keeping the Glass's catheter for better I/O Charting. (2) HTN (hypertension) ICD Codes: I10 - Essential (primary) hypertension (3) Diabetes mellitus ICD Codes: E11.9 - Diabetes mellitus Status: Acute (4) Chronic hyponatremia ICD Codes: E87.1 - Chronic hyponatremia Status: Chronic (5) Chronic systolic CHF (congestive heart failure) ICD Codes: I50.22 - Chronic systolic congestive heart failure Status: Acute (Jai Godinez MD) Problem Qualifiers (1) HTN (hypertension): Qualified Codes: I10 - Essential (primary) hypertension Corinne Vizcaino Aug 01, 2017 15:42 Jai Godinez MD Aug 01, 2017 19:08
--- NOTE | 2017-08-01 16:45 | HHI.PR ---
Subjective Remarks ALERT SITTING IN BED Objective Vital Signs Date Time Temp Pulse Resp B/P (MAP) Pulse Ox O2 Delivery O2 Flow Rate FiO2 08/01/17 16:00 60 08/01/17 15:00 94 Nasal Cannula 2.00 08/01/17 15:00 98.5 60 20 118/62 (80) 94 08/01/17 15:00 60 08/01/17 14:00 60 08/01/17 13:00 60 08/01/17 12:00 61 08/01/17 11:00 60 08/01/17 11:00 94 Nasal Cannula 2.00 08/01/17 11:00 98.3 60 20 109/57 (74) 95 08/01/17 10:00 60 08/01/17 09:00 60 08/01/17 08:14 99 Nasal Cannula 2.00 08/01/17 08:00 60 08/01/17 07:15 94 Nasal Cannula 2.00 08/01/17 07:15 94 Nasal Cannula 2.00 08/01/17 07:15 61 08/01/17 07:15 98.8 60 20 120/62 (81) 94 08/01/17 06:00 63 08/01/17 05:00 58 08/01/17 04:00 60 08/01/17 04:00 Nasal Cannula 2.00 08/01/17 04:00 98.1 60 18 119/69 (86) 99 08/01/17 03:00 62 08/01/17 02:00 59 08/01/17 01:00 61 08/01/17 00:00 60 08/01/17 00:00 98.6 60 18 124/65 (84) 98 08/01/17 00:00 Nasal Cannula 2.00 07/31/17 23:00 61 07/31/17 22:00 59 07/31/17 22:00 100 Nasal Cannula 2.00 07/31/17 21:00 61 07/31/17 20:00 60 07/31/17 20:00 98.3 60 20 134/68 (90) 100 07/31/17 20:00 Nasal Cannula 2.00 07/31/17 17:00 98.0 60 18 125/70 (88) 97 07/31/17 17:00 61 I/O 2/25/18 207/31/17 08/01/17 08/01/17 08/01/17 07:00 15:00 23:00 07:00 15:00 23:00 Intake Total 1410 ml 100 ml 360 ml 1410 ml Output Total 1200 ml 1800 ml 1350 ml Balance 210 ml 100 ml -1440 ml 60 ml Intake Oral 960 ml 360 ml 960 ml IV Total 450 ml 100 ml 450 ml Output Urine Total 1200 ml 1800 ml 1350 ml # Bowel Movements 0 0 Result Diagram: 08/01/1751908/01/17519 Objective Remarks GENERAL: SKIN: Warm and dry. HEAD: Atraumatic. Normocephalic. EYES: Pupils equal and round. No scleral icterus. No injection or drainage. ENT: No nasal bleeding or discharge. Mucous membranes pink and moist. NECK: Trachea midline. No JVD. CARDIOVASCULAR: Regular rate and rhythm. RESPIRATORY: No accessory muscle use. decrease breath sounds at basis. GASTROINTESTINAL: Abdomen soft, non-tender, nondistended. Hepatic and splenic margins not palpable. MUSCULOSKELETAL: Extremities without clubbing, cyanosis, or edema. No obvious deformities. NEUROLOGICAL: Awake and alert. No obvious cranial nerve deficits. Motor grossly within normal limits. Five out of 5 muscle strength in the arms and legs. Normal speech. PSYCHIATRIC: Appropriate mood and affect; insight and judgment normal. Assessment and Plan Assessment and Plan respiratory failure CHF DM HTN CKD PLAN CONTINUE O2 PULM TOILET INCREASE ACTIVITY Salima Borrego MD Aug 01, 2017 16:45
--- NOTE | 2017-08-01 17:58 | HHI.PR ---
Subjective Remarks Patient has been doing well on oxygen now. He will need a long term facility at least for discharge possibly inpatient rehabilitation. Renal function is improving. Cardiac status is stable. Objective Vital Signs Date Time Temp Pulse Resp B/P (MAP) Pulse Ox O2 Delivery O2 Flow Rate FiO2 08/01/17 17:00 60 08/01/17 16:00 60 08/01/17 15:00 94 Nasal Cannula 2.00 08/01/17 15:00 98.5 60 20 118/62 (80) 94 08/01/17 15:00 60 08/01/17 14:00 60 08/01/17 13:00 60 08/01/17 12:00 61 08/01/17 11:00 60 08/01/17 11:00 94 Nasal Cannula 2.00 08/01/17 11:00 98.3 60 20 109/57 (74) 95 08/01/17 10:00 60 08/01/17 09:00 60 08/01/17 08:14 99 Nasal Cannula 2.00 08/01/17 08:00 60 08/01/17 07:15 94 Nasal Cannula 2.00 08/01/17 07:15 94 Nasal Cannula 2.00 08/01/17 07:15 61 08/01/17 07:15 98.8 60 20 120/62 (81) 94 08/01/17 06:00 63 08/01/17 05:00 58 08/01/17 04:00 60 08/01/17 04:00 Nasal Cannula 2.00 08/01/17 04:00 98.1 60 18 119/69 (86) 99 08/01/17 03:00 62 08/01/17 02:00 59 08/01/17 01:00 61 08/01/17 00:00 60 08/01/17 00:00 98.6 60 18 124/65 (84) 98 08/01/17 00:00 Nasal Cannula 2.00 07/31/17 23:00 61 07/31/17 22:00 59 07/31/17 22:00 100 Nasal Cannula 2.00 07/31/17 21:00 61 07/31/17 20:00 60 07/31/17 20:00 98.3 60 20 134/68 (90) 100 07/31/17 20:00 Nasal Cannula 2.00 I/O 07/31/17 07/31/17 07/31/17 08/01/17 08/01/17 08/01/17 07:00 15:00 23:00 07:00 15:00 23:00 Intake Total 1410 ml 100 ml 360 ml 1410 ml 100 ml Output Total 1200 ml 1800 ml 1350 ml 1150 ml Balance 210 ml 100 ml -1440 ml 60 ml -1050 ml Intake Oral 960 ml 360 ml 960 ml 100 ml IV Total 450 ml 100 ml 450 ml Output Urine Total 1200 ml 1800 ml 1350 ml 1150 ml # Bowel Movements 0 0 0 Result Diagram: 08/01/1751908/01/17519 Objective Remarks GENERAL: NAD, A&Ox3 HEAD: Normocephalic. NECK: Supple, trachea midline. No lymphadenopathy. EYES: No scleral icterus. No injection or drainage. CARDIOVASCULAR: Regular rate and rhythm without murmurs, gallops, or rubs. RESPIRATORY: Breath sounds equal bilaterally. No accessory muscle use. GASTROINTESTINAL: Abdomen soft, non-tender, nondistended. MUSCULOSKELETAL: No cyanosis, or edema. Left lower extremity amputation, chronic. SKIN: Warm and dry. Scar at sternum. NEURO: No focal neurological deficitis. A/P Problem List: (1) Acute respiratory failure ICD Code: J96.00 - Acute respiratory failure, unspecified whether with hypoxia or hypercapnia (2) Hypercarbia ICD Code: R06.89 - Other abnormalities of breathing (3) Congestive heart failure ICD Code: I50.9 - Heart failure, unspecified (4) S/P CABG x 3 ICD Code: Z95.1 - Presence of aortocoronary bypass graft Status: Acute (5) Status post below knee amputation of left lower extremity ICD Code: Z89.512 - Acquired absence of left leg below knee Status: Acute Assessment and Plan 66-year-old male admitted secondary to acute respiratory failure and hypercarbia. Labs reviewed. Renal function is improving. Continue to monitor labs. Labs ordered for further monitoring. No recurrence of hypercarbia overnight without BiPAP. Continue to work with physical therapy. Acute hypoxia Hypercarbic respiratory failure Leukocytosis Improved with BiPAP To need to monitor for stability Patient is off BiPAP when seen Duo nebs as needed Continue prednisone Pulmonology following Azithromycin Cefepime CHF exacerbation Atrial fibrillation Status post CABG 07/01/17 History of pacemaker Follow on telemetry Supportive care Continue aspirin Continue carvedilol Continue atorvastatin Hypertension Continue baseline treatment Follow blood pressures Adjust treatments as needed Elevated digoxin level Digoxin discontinued Hypertherapeutic INR Coumadin on hold Follow INR Acute kidney injury Chronic kidney disease stage III Nephrology following Follow renal function Avoid nephrotoxins Diabetes mellitus type 2 Follow blood sugars Insulin sliding scale Diabetic diet DVT Prophylaxis SCDs Ever Rubalcava MD Aug 01, 2017 17:58
[2017-08-01] MEDS: ATORVASTATIN 80 MG TAB PO SCH (20:25)
[2017-08-02] VITALS (30 sets, daily range): BP systolic 117–145; BP diastolic 60–70; PULSE 59–65; RESP 16–19; TEMP 97.5–98.5; O2SAT 96–100
[2017-08-02] MEDS: RESP: ALBUTEROL 2.5 MG/IPRATROPIUM 0.5 MG NEB (SCH) NEB ×6 (00:24→19:17)
[2017-08-02] MEDS: MORPHINE SULFATE 15 MG TAB PO PRN ×2 (02:44→09:27)
[2017-08-02] MEDS: CEFEPIME INJ 1,000 MG in SODIUM CHLORIDE 0.9% INJ 100 ML IV SCH ×3 (04:22→20:28)
[2017-08-02] MEDS: ALPRAZolam 0.5 MG TAB PO PRN (04:27)
[2017-08-02] MEDS: INSULIN DETEMIR 100 UNITS/ML VIAL SQ SCH (05:05)
[2017-08-02] MEDS: AZITHROMYCIN INJ 500 MG in SODIUM CHLOR 0.9% 250 ML INJ 250 ML IV SCH (05:06)
[2017-08-02 06:32] LABS: AUTOMATED NEUTROPHIL # 10.5 TH/MM3 (1.8-7.7); BASOPHIL % 0.1 % (0.0-2.0); EOSINOPHIL # 0.1 TH/MM3 (0-0.4); EOSINOPHIL % 0.7 % (0.0-4.0); HEMATOCRIT 25.3 % (39.0-51.0); HEMOGLOBIN 8.3 GM/DL (13.0-17.0); LYMPH % 6.2 % (9.0-44.0); LYMPHOCYTE # 0.8 TH/MM3 (1.0-4.8); MEAN CELL VOLUME 88.9 FL (80.0-100.0); MEAN CORPUSCULAR HEMOGLOBIN 29.2 PG (27.0-34.0); MEAN CORPUSCULAR HGB CONC 32.9 % (32.0-36.0); MEAN PLATELET VOLUME 8.9 FL (7.0-11.0); MONO % 7.7 % (0.0-8.0); MONOCYTE # 0.9 TH/MM3 (0-0.9); NEUT % 85.3 % (16.0-70.0); PLATELET COUNT 187 TH/MM3 (150-450); RED BLOOD COUNT 2.84 MIL/MM3 (4.50-5.90); WHITE BLOOD COUNT 12.3 TH/MM3 (4.0-11.0)
[2017-08-02 06:40] LABS: INTERNATIONAL NORMALIZED RATIO 2.1 RATIO; PROTHROMBIN TIME - PATIENT 20.8 SEC (9.8-11.6)
[2017-08-02 06:54] LABS: ALBUMIN 3.3 GM/DL (3.4-5.0); ALT (GPT) 30 U/L (12-78); AST (GOT) 20 U/L (15-37); BICARBONATE 35.3 MEQ/L (21.0-32.0); BLOOD UREA NITROGEN 86 MG/DL (7-18); CALCIUM 8.9 MG/DL (8.5-10.1); CHLORIDE 91 MEQ/L (98-107); CREATININE 1.89 MG/DL (0.60-1.30); GLOMERULAR FILTRATION RATE 36 ML/MIN (>89); GLUCOSE,RANDOM 269 MG/DL (74-106); SODIUM (NA) 134 MEQ/L (136-145)
[2017-08-02 06:56] LABS: ALKALINE PHOSPHATASE 161 U/L (45-117); TOTAL PROTEIN 7.5 GM/DL (6.4-8.2)
[2017-08-02 08:22] LABS: BANDS 1 % (0-6); LYMPHOCYTES 4 % (9-44); MONOCYTES 4 % (0-8); MYELOCYTES 3 % (0-0); NEUTROPHIL # MANUAL DIFF 11.2 TH/MM3 (1.8-7.7); POLYS (SEG NEUTROPHILS) 87 % (16-70); TOXIC GRANULATION 1+ (NORMAL)
[2017-08-02] MEDS: CARVEDILOL 12.5 MG TAB PO SCH ×2 (09:28→20:28)
[2017-08-02] MEDS: INSULIN ASPART SUPPLEMENTAL SCALE SQ SCH ×4 (09:28→20:28)
[2017-08-02] MEDS: FUROSEMIDE 40 MG/4 ML VIAL IV PUSH SCH ×2 (09:28→18:00)
[2017-08-02] MEDS: SODIUM CHLORIDE 0.9% FLUSH 10 ML FLUSH IV FLUSH SCH ×2 (09:28→20:28)
[2017-08-02] MEDS: predniSONE 10 MG TAB PO SCH ×2 (09:29→20:27)
[2017-08-02] MEDS: DOCUSATE SODIUM 50 MG/SENNA 8.6 MG TAB PO SCH ×2 (09:29→20:27)
[2017-08-02] MEDS: ASPIRIN 81 MG CHEW TAB PO SCH (09:29)
[2017-08-02] MEDS: PANTOPRAZOLE SOD 40 MG DELAYED RELEASE TAB PO SCH ×2 (09:29→20:28)
--- NOTE | 2017-08-02 16:26 | HHI.NPPN ---
Subjective Complaints: Shortness of Breath Renal Failure: Chronic, Stage III History of Present Illness Patient is a 66-year-old male with a past medical history significant for hypertension, atrial fibrillation anticoagulated on Coumadin, coronary artery disease status post CABG 3 on 07/01/17, peripheral vascular disease, hepatitis C, cirrhosis, diabetes mellitus, CKD, and chronic back pain. Presents to the emergency department for evaluation for SOB. Patient is on BIPAP with nitroglycerin gtt. The patient was [facility] from [facility] Nephrology was consulted for worsening renal indices patients baseline creatinine is 1.50, patient has stage 3 CKD. Creatinine was found to be 2.40 and a GFR of 27 ml/min. During his stay at [facility] he was aggressive diuresed for increased lower extremity. Additional Remarks Resting OOB in chair. Apprehensive about upcoming discharge (Corinne Vizcaino) Review of Systems General Constitutional: Fatigue (Corinne Vizcaino) Cardiovascular Cardiac Remarks Denies CP (Corinne Vizcaino) Gastrointestinal GI Remarks No abdominal pain (Corinne Vizcaino) Objective Data Data Vital Signs Date Time Temp Pulse Resp B/P (MAP) Pulse Ox O2 Delivery O2 Flow Rate FiO2 08/02/17 16:00 59 08/02/17 15:58 96 Room Air 08/02/17 15:20 98.5 65 19 145/60 (88) 96 08/02/17 15:00 60 08/02/17 14:00 60 08/02/17 13:00 60 08/02/17 12:00 60 08/02/17 11:41 97.5 08/02/17 11:35 95 Room Air 08/02/17 11:27 61 17 131/70 (90) 96 08/02/17 11:00 60 08/02/17 10:00 60 08/02/17 09:00 62 08/02/17 08:00 60 08/02/17 07:55 98 Nasal Cannula 2.00 08/02/17 07:48 100 Room Air 08/02/17 07:42 97.9 61 16 132/70 (90) 100 08/02/17 07:00 62 08/02/17 06:00 63 08/02/17 05:00 62 2/27/18 04:00 60 08/02/17 03:54 17 08/02/17 03:00 100 Nasal Cannula 2.00 08/02/17 03:00 97.7 59 18 117/69 (85) 99 08/02/17 03:00 59 08/02/17 02:05 63 08/02/17 01:02 62 08/02/17 00:00 60 08/01/17 23:00 100 Nasal Cannula 2.00 08/01/17 23:00 97.6 57 18 126/64 (84) 100 08/01/17 23:00 60 08/01/17 22:00 60 08/01/17 21:00 60 08/01/17 20:46 98 Nasal Cannula 2.00 08/01/17 20:00 60 08/01/17 19:00 60 08/01/17 19:00 100 Nasal Cannula 2.00 08/01/17 19:00 97.8 60 18 121/62 (81) 100 08/01/17 18:00 60 08/01/17 17:00 60 (Corinne Vizcaino) -: 08/02/17 0543 08/02/17 0543 Physical Exam Eyes Eye Exam: Pupils Equal (Corinne Vizcaino) Neck Neck Exam: Neck Supple (Corinne Vizcaino) Pulmonary Resp Exam: Breath Sounds Equal, Decreased Bases (Corinne Vizcaino) Cardiology CV Exam: Regular, Normal Sinus Rhythm (Corinne Vizcaino) Gastrointestinal/Abdomen GI Exam: Soft, Non-Tender, Bowel Sounds Present (Corinne Vizcaino) Genitourinary Exam: Clear Urine, Flank Non-Tender (Corinne Vizcaino) Integumentary Skin Exam: Clear, Warm, Dry (Corinne Vizcaino) Extremeties Extremities Exam: Moderate Edema, Pitting Edema (Corinne Vizcaino) Neurologic Neuro Exam: Alert, Awake, Oriented (Corinne Vizcaino) Psychiatric Psych Exam: Appropriate Responses (Corinne Vizcaino) Assessment/Plan Problem List: (1) FRANCISCO (acute kidney injury) ICD Codes: N17.9 - Acute kidney injury Status: Acute Plan: FRANCISCO on CKD stage 3 Patient was re admitted with fluid overload. He has chronic kidney disease, and developed FRANCISCO. CKD most likely form Diabetic nephropathy UA with 3 + protein. Creatinine stable Good UOP Edema improving Plan Continue maintain strict I+o Continue Lasix, follow the urine out put and BMP. (2) HTN (hypertension) ICD Codes: I10 - Essential (primary) hypertension (3) Diabetes mellitus ICD Codes: E11.9 - Diabetes mellitus Status: Acute (4) Chronic hyponatremia ICD Codes: E87.1 - Chronic hyponatremia Status: Chronic (5) Chronic systolic CHF (congestive heart failure) ICD Codes: I50.22 - Chronic systolic congestive heart failure Status: Acute (Corinne Vizcaino) Problem List: (1) FRANCISCO (acute kidney injury) ICD Codes: N17.9 - Acute kidney injury Status: Acute Plan: FRANCISCO on CKD stage 3 Patient was re admitted with fluid overload. He has chronic kidney disease, and developed FRANCISCO. CKD most likely form Diabetic nephropathy UA with 3 + protein. Creatinine stable Good UOP Edema improving Continue maintain strict I+o Continue Lasix, follow the urine out put and BMP. Patient seen and examined, agree with above. (2) HTN (hypertension) ICD Codes: I10 - Essential (primary) hypertension (3) Diabetes mellitus ICD Codes: E11.9 - Diabetes mellitus Status: Acute (4) Chronic hyponatremia ICD Codes: E87.1 - Chronic hyponatremia Status: Chronic (5) Chronic systolic CHF (congestive heart failure) ICD Codes: I50.22 - Chronic systolic congestive heart failure Status: Acute (Jai Godinez MD) Problem Qualifiers (1) HTN (hypertension): Qualified Codes: I10 - Essential (primary) hypertension Corinne Vizcaino Aug 02, 2017 16:26 Jai Godinez MD Aug 02, 2017 18:53
--- NOTE | 2017-08-02 16:41 | HHI.PR ---
Subjective Remarks ALERT SITTING IN BED Objective Vital Signs Date Time Temp Pulse Resp B/P (MAP) Pulse Ox O2 Delivery O2 Flow Rate FiO2 08/02/17 16:00 59 08/02/17 15:58 96 Room Air 08/02/17 15:20 98.5 65 19 145/60 (88) 96 08/02/17 15:00 60 08/02/17 14:00 60 08/02/17 13:00 60 08/02/17 12:00 60 08/02/17 11:41 97.5 08/02/17 11:35 95 Room Air 08/02/17 11:27 61 17 131/70 (90) 96 08/02/17 11:00 60 08/02/17 10:00 60 08/02/17 09:00 62 08/02/17 08:00 60 08/02/17 07:55 98 Nasal Cannula 2.00 08/02/17 07:48 100 Room Air 08/02/17 07:42 97.9 61 16 132/70 (90) 100 08/02/17 07:00 62 08/02/17 06:00 63 08/02/17 05:00 62 08/02/17 04:00 60 08/02/17 03:54 17 08/02/17 03:00 100 Nasal Cannula 2.00 08/02/17 03:00 97.7 59 18 117/69 (85) 99 08/02/17 03:00 59 08/02/17 02:05 63 08/02/17 01:02 62 08/02/17 00:00 60 08/01/17 23:00 100 Nasal Cannula 2.00 08/01/17 23:00 97.6 57 18 126/64 (84) 100 08/01/17 23:00 60 08/01/17 22:00 60 08/01/17 21:00 60 08/01/17 20:46 98 Nasal Cannula 2.00 08/01/17 20:00 60 08/01/17 19:00 60 08/01/17 19:00 100 Nasal Cannula 2.00 08/01/17 19:00 97.8 60 18 121/62 (81) 100 08/01/17 18:00 60 08/01/17 17:00 60 I/O 08/01/17 08/01/17 08/01/17 08/02/17/27/18 2/27/18 07:00 15:00 23:00 07:00 15:00 23:00 Intake Total 1410 ml 100 ml 720 ml Output Total 1350 ml 1150 ml 1000 ml Balance 60 ml -1050 ml -280 ml Intake Oral 960 ml 100 ml 720 ml IV Total 450 ml Output Urine Total 1350 ml 1150 ml 1000 ml # Bowel Movements 0 0 Result Diagram: 08/02/1743 08/02/17542 Objective Remarks GENERAL: SKIN: Warm and dry. HEAD: Atraumatic. Normocephalic. EYES: Pupils equal and round. No scleral icterus. No injection or drainage. ENT: No nasal bleeding or discharge. Mucous membranes pink and moist. NECK: Trachea midline. No JVD. CARDIOVASCULAR: Regular rate and rhythm. RESPIRATORY: No accessory muscle use. decrease breath sounds at basis. GASTROINTESTINAL: Abdomen soft, non-tender, nondistended. Hepatic and splenic margins not palpable. MUSCULOSKELETAL: Extremities without clubbing, cyanosis, or edema. No obvious deformities. NEUROLOGICAL: Awake and alert. No obvious cranial nerve deficits. Motor grossly within normal limits. Five out of 5 muscle strength in the arms and legs. Normal speech. PSYCHIATRIC: Appropriate mood and affect; insight and judgment normal. Assessment and Plan Assessment and Plan respiratory failure CHF DM HTN CKD PLAN CONTINUE O2 PULM TOILET INCREASE ACTIVITY Salima Borrego MD Aug 02, 2017 16:41
[2017-08-02] MEDS ORDERED: INSULIN DETEMIR 100 UNITS/ML VIAL SQ ONE (17:00)
--- NOTE | 2017-08-02 17:04 | HHI.PR ---
Subjective Remarks Blood sugars uncontrolled in present insulin dosing. Further adjustments needed. INR level has trended down to therapeutic range. Patient has been off Coumadin is full-time and will resume Coumadin today. INR recheck in morning. Patient has no new complaints. Objective Vital Signs Date Time Temp Pulse Resp B/P (MAP) Pulse Ox O2 Delivery O2 Flow Rate FiO2 08/02/17 16:00 59 08/02/17 15:58 96 Room Air 08/02/17 15:20 98.5 65 19 145/60 (88) 96 08/02/17 15:00 60 08/02/17 14:00 60 08/02/17 13:00 60 08/02/17 12:00 60 08/02/17 11:41 97.5 08/02/17 11:35 95 Room Air 08/02/17 11:27 61 17 131/70 (90) 96 08/02/17 11:00 60 08/02/17 10:00 60 08/02/17 09:00 62 08/02/17 08:00 60 08/02/17 07:55 98 Nasal Cannula 2.00 08/02/17 07:48 100 Room Air 08/02/17 07:42 97.9 61 16 132/70 (90) 100 08/02/17 07:00 62 08/02/17 06:00 63 08/02/17 05:00 62 08/02/17 04:00 60 08/02/17 03:54 17 08/02/17 03:00 100 Nasal Cannula 2.00 08/02/17 03:00 97.7 59 18 117/69 (85) 99 08/02/17 03:00 59 08/02/17 02:05 63 08/02/17 01:02 62 08/02/17 00:00 60 08/01/17 23:00 100 Nasal Cannula 2.00 08/01/17 23:00 97.6 57 18 126/64 (84) 100 08/01/17 23:00 60 08/01/17 22:00 60 08/01/17 21:00 60 08/01/17 20:46 98 Nasal Cannula 2.00 08/01/17 20:00 60 08/01/17 19:00 60 08/01/17 19:00 100 Nasal Cannula 2.00 2/26/18 19:00 97.8 60 18 121/62 (81) 100 08/01/17 18:00 60 I/O 08/01/17 08/01/17 08/01/17 08/02/17 08/02/17 08/02/17 07:00 15:00 23:00 07:00 15:00 23:00 Intake Total 1410 ml 100 ml 720 ml Output Total 1350 ml 1150 ml 1000 ml Balance 60 ml -1050 ml -280 ml Intake Oral 960 ml 100 ml 720 ml IV Total 450 ml Output Urine Total 1350 ml 1150 ml 1000 ml # Bowel Movements 0 0 Result Diagram: 08/02/17 0543 08/02/17 0543 Objective Remarks GENERAL: NAD, A&Ox3 HEAD: Normocephalic. NECK: Supple, trachea midline. No lymphadenopathy. EYES: No scleral icterus. No injection or drainage. CARDIOVASCULAR: Regular rate and rhythm without murmurs, gallops, or rubs. RESPIRATORY: Breath sounds equal bilaterally. No accessory muscle use. GASTROINTESTINAL: Abdomen soft, non-tender, nondistended. MUSCULOSKELETAL: No cyanosis, or edema. Left lower extremity amputation, chronic. SKIN: Warm and dry. Scar at sternum. NEURO: No focal neurological deficitis. A/P Problem List: (1) Acute respiratory failure ICD Code: J96.00 - Acute respiratory failure, unspecified whether with hypoxia or hypercapnia (2) Hypercarbia ICD Code: R06.89 - Other abnormalities of breathing (3) Congestive heart failure ICD Code: I50.9 - Heart failure, unspecified (4) S/P CABG x 3 ICD Code: Z95.1 - Presence of aortocoronary bypass graft Status: Acute (5) Status post below knee amputation of left lower extremity ICD Code: Z89.512 - Acquired absence of left leg below knee Status: Acute Assessment and Plan 66-year-old male admitted secondary to acute respiratory failure and hypercarbia. Labs reviewed. Renal function continues to improve. Continue to monitor labs. Labs ordered for further monitoring. Insulins adjusted back to previous baseline dosings. Monitor blood sugar trends. Coumadin is being resumed by the pharmacy today. Check INR in a.m. to ensure no recurrence of hypertherapeutic INR. Potential discharge if blood sugars improved and if INR is stable. Acute hypoxia Hypercarbic respiratory failure Leukocytosis Improved with BiPAP To need to monitor for stability Patient is off BiPAP when seen Duo nebs as needed Continue prednisone Pulmonology following Azithromycin Cefepime CHF exacerbation Atrial fibrillation Status post CABG 07/01/17 History of pacemaker Follow on telemetry Supportive care Continue aspirin Continue carvedilol Continue atorvastatin Hypertension Continue baseline treatment Follow blood pressures Adjust treatments as needed Elevated digoxin level Digoxin discontinued Hypertherapeutic INR Coumadin on hold Follow INR Acute kidney injury Chronic kidney disease stage III Nephrology following Follow renal function Avoid nephrotoxins Diabetes mellitus type 2 Follow blood sugars Insulin sliding scale Diabetic diet DVT Prophylaxis SCDs Ever Rubalcava MD Aug 02, 2017 17:04
[2017-08-02] MEDS: WARFARIN SOD 5 MG TAB PO SCH (18:00)
[2017-08-02] MEDS: ATORVASTATIN 80 MG TAB PO SCH (20:27)
[2017-08-03] VITALS (26 sets, daily range): BP systolic 119–147; BP diastolic 60–84; PULSE 60–68; RESP 18–20; TEMP 97–98.6; O2SAT 97–100
[2017-08-03] MEDS: RESP: ALBUTEROL 2.5 MG/IPRATROPIUM 0.5 MG NEB (SCH) NEB ×4 (00:27→11:52)
[2017-08-03] MEDS: CEFEPIME INJ 1,000 MG in SODIUM CHLORIDE 0.9% INJ 100 ML IV SCH ×5 (04:17→23:34)
[2017-08-03] MEDS: AZITHROMYCIN INJ 500 MG in SODIUM CHLOR 0.9% 250 ML INJ 250 ML IV SCH ×2 (05:18→23:35)
[2017-08-03 06:08] LABS: INTERNATIONAL NORMALIZED RATIO 1.5 RATIO; PROTHROMBIN TIME - PATIENT 15.2 SEC (9.8-11.6)
[2017-08-03] MEDS: INSULIN ASPART SUPPLEMENTAL SCALE SQ SCH ×4 (08:00→22:12)
[2017-08-03] MEDS: INSULIN DETEMIR 100 UNITS/ML VIAL SQ SCH (09:00)
[2017-08-03] MEDS: SODIUM CHLORIDE 0.9% FLUSH 10 ML FLUSH IV FLUSH SCH ×2 (09:00→22:14)
--- NOTE | 2017-08-03 09:35 | HHI.NPPN ---
Subjective Complaints: Shortness of Breath Renal Failure: Chronic, Stage III History of Present Illness Patient is a 66-year-old male with a past medical history significant for hypertension, atrial fibrillation anticoagulated on Coumadin, coronary artery disease status post CABG 3 on 07/01/17, peripheral vascular disease, hepatitis C, cirrhosis, diabetes mellitus, CKD, and chronic back pain. Presents to the emergency department for evaluation for SOB. Patient is on BIPAP with nitroglycerin gtt. The patient was discharged from [facility] on to [facility]. Nephrology was consulted for worsening renal indices patients baseline creatinine is 1.50, patient has stage 3 CKD. Creatinine was found to be 2.40 and a GFR of 27 ml/min. During his stay at [facility] he was aggressive diuresed for increased lower extremity. Additional Remarks Resting OOB in chair. Continues to be apprehensive about upcoming discharge and does not feel ready (Corinne Vizcaino) Review of Systems General Constitutional: Fatigue (Corinne Vizcaino) Respiratory Lungs: SOB (Corinne Vizcaino) Cardiovascular Cardiac Remarks Denies CP (Corinne Vizcaino) Gastrointestinal GI Remarks No abdominal pain (Corinne Vizcaino) Objective Data Data Vital Signs Date Time Temp Pulse Resp B/P (MAP) Pulse Ox O2 Delivery O2 Flow Rate FiO2 08/03/17 08:43 98 Nasal Cannula 2.00 08/03/17 07:30 97.6 61 20 124/65 (84) 97 08/03/17 06:00 60 08/03/17 05:00 60 08/03/17 04:00 97.4 60 20 147/60 (89) 98 08/03/17 04:00 60 08/03/17 03:00 60 08/03/17 02:00 60 08/03/17 01:00 60 08/03/17 00:00 Nasal Cannula 2.00 08/03/17 00:00 98.2 18 119/68 (85) 100 08/03/17 00:00 60 08/02/17 23:00 60 08/02/17 22:00 60 08/02/17 21:00 60 08/02/17 20:00 60 08/02/17 20:00 98.2 60 18 138/62 (87) 100 08/02/17 20:00 Nasal Cannula 2.00 08/02/17 19:18 97 Nasal Cannula 2.00 08/02/17 19:00 60 08/02/17 18:00 60 08/02/17 17:00 60 08/02/17 16:00 59 08/02/17 15:58 96 Room Air 08/02/17 15:20 98.5 65 19 145/60 (88) 96 08/02/17 15:00 60 08/02/17 14:00 60 08/02/17 13:00 60 08/02/17 12:00 60 08/02/17 11:41 97.5 08/02/17 11:35 95 Room Air 08/02/17 11:27 61 17 131/70 (90) 96 08/02/17 11:00 60 08/02/17 10:00 60 (Corinne Vizcaino) -: 08/02/17 0543 08/02/17 0543 Physical Exam Eyes Eye Exam: Pupils Equal (Corinne Vizcaino) Neck Neck Exam: Neck Supple (Corinne Vizcaino) Pulmonary Resp Exam: Breath Sounds Equal, Decreased Bases (Corinne Vizcaino) Cardiology CV Exam: Regular, Normal Sinus Rhythm (Corinne Vizcaino) Gastrointestinal/Abdomen GI Exam: Soft, Non-Tender, Bowel Sounds Present (Corinne Vizcaino) Genitourinary Exam: Clear Urine, Flank Non-Tender (Corinne Vizcaino) Integumentary Skin Exam: Clear, Warm, Dry (Corinne Vizcaino) Extremeties Extremities Exam: Moderate Edema, Pitting Edema (Corinne Vizcaino) Neurologic Neuro Exam: Alert, Awake, Oriented (Corinne Vizcaino) Psychiatric Psych Exam: Appropriate Responses (Corinne Vizcaino) Assessment/Plan Problem List: (1) FRANCISCO (acute kidney injury) ICD Codes: N17.9 - Acute kidney injury Status: Acute Plan: FRANCISCO on CKD stage 3 Patient was re admitted with fluid overload. He has chronic kidney disease, and developed FRANCISCO. CKD most likely form Diabetic nephropathy UA with 3 + protein. Creatinine stable Good UOP Edema improving Continue Lasix, follow the urine out put and BMP. Cleared per nephrology for discharge. (2) HTN (hypertension) ICD Codes: I10 - Essential (primary) hypertension (3) Diabetes mellitus ICD Codes: E11.9 - Diabetes mellitus Status: Acute (4) Chronic hyponatremia ICD Codes: E87.1 - Chronic hyponatremia Status: Chronic (5) Chronic systolic CHF (congestive heart failure) ICD Codes: I50.22 - Chronic systolic congestive heart failure Status: Acute (Corinne Vizcaino) Problem List: (1) FRANCISCO (acute kidney injury) ICD Codes: N17.9 - Acute kidney injury Status: Acute Plan: FRANCISCO on CKD stage 3 Patient was re admitted with fluid overload. He has chronic kidney disease, and developed FRANCISCO. CKD most likely form Diabetic nephropathy UA with 3 + protein. Creatinine stable Good UOP Edema improving Continue Lasix, follow the urine out put and BMP. Cleared per nephrology for discharge. Patient seen and examined, agree with above. Need to restrict fluid and salt intake. (2) HTN (hypertension) ICD Codes: I10 - Essential (primary) hypertension (3) Diabetes mellitus ICD Codes: E11.9 - Diabetes mellitus Status: Acute (4) Chronic hyponatremia ICD Codes: E87.1 - Chronic hyponatremia Status: Chronic (5) Chronic systolic CHF (congestive heart failure) ICD Codes: I50.22 - Chronic systolic congestive heart failure Status: Acute (Jai Godinez MD) Problem Qualifiers (1) HTN (hypertension): Qualified Codes: I10 - Essential (primary) hypertension Corinne Vizcaino Aug 03, 2017 09:35 Jai Godinez MD Aug 03, 2017 19:12
[2017-08-03] MEDS: CARVEDILOL 12.5 MG TAB PO SCH ×2 (09:59→22:14)
[2017-08-03] MEDS: DOCUSATE SODIUM 50 MG/SENNA 8.6 MG TAB PO SCH ×2 (09:59→21:00)
[2017-08-03] MEDS: ALPRAZolam 0.5 MG TAB PO PRN (10:00)
[2017-08-03] MEDS: PANTOPRAZOLE SOD 40 MG DELAYED RELEASE TAB PO SCH ×2 (10:00→22:14)
[2017-08-03] MEDS: ASPIRIN 81 MG CHEW TAB PO SCH (10:00)
[2017-08-03] MEDS: predniSONE 10 MG TAB PO SCH ×2 (10:00→22:14)
[2017-08-03] MEDS: FUROSEMIDE 40 MG/4 ML VIAL IV PUSH SCH ×2 (10:01→17:45)
--- NOTE | 2017-08-03 15:55 | HHI.PR ---
Subjective Remarks ALERT SITTING IN BED Objective Vital Signs Date Time Temp Pulse Resp B/P (MAP) Pulse Ox O2 Delivery O2 Flow Rate FiO2 08/03/17 11:00 97.0 62 20 122/60 (80) 08/03/17 08:43 98 Nasal Cannula 2.00 08/03/17 07:30 97.6 61 20 124/65 (84) 97 08/03/17 06:00 60 08/03/17 05:00 60 08/03/17 04:00 97.4 60 20 147/60 (89) 98 08/03/17 04:00 60 08/03/17 03:00 60 08/03/17 02:00 60 08/03/17 01:00 60 08/03/17 00:00 Nasal Cannula 2.00 08/03/17 00:00 98.2 18 119/68 (85) 100 08/03/17 00:00 60 08/02/17 23:00 60 08/02/17 22:00 60 08/02/17 21:00 60 08/02/17 20:00 60 08/02/17 20:00 98.2 60 18 138/62 (87) 100 08/02/17 20:00 Nasal Cannula 2.00 08/02/17 19:18 97 Nasal Cannula 2.00 08/02/17 19:00 60 08/02/17 18:00 60 08/02/17 17:00 60 08/02/17 16:00 59 08/02/17 15:58 96 Room Air I/O 08/02/17 08/02/17 08/02/17 08/03/17 08/03/17 08/03/17 07:00 15:00 23:00 07:00 15:00 23:00 Intake Total 720 ml 1040 ml 590 ml Output Total 1000 ml 950 ml 850 ml Balance -280 ml 90 ml -260 ml Intake Oral 720 ml 940 ml 240 ml IV Total 100 ml 350 ml Output Urine Total 1000 ml 950 ml 850 ml # Voids 3 Result Diagram: 08/02/1743 08/02/1743 Objective Remarks GENERAL: SKIN: Warm and dry. HEAD: Atraumatic. Normocephalic. EYES: Pupils equal and round. No scleral icterus. No injection or drainage. ENT: No nasal bleeding or discharge. Mucous membranes pink and moist. NECK: Trachea midline. No JVD. CARDIOVASCULAR: Regular rate and rhythm. RESPIRATORY: No accessory muscle use. decrease breath sounds at basis. GASTROINTESTINAL: Abdomen soft, non-tender, nondistended. Hepatic and splenic margins not palpable. MUSCULOSKELETAL: Extremities without clubbing, cyanosis, or edema. No obvious deformities. NEUROLOGICAL: Awake and alert. No obvious cranial nerve deficits. Motor grossly within normal limits. Five out of 5 muscle strength in the arms and legs. Normal speech. PSYCHIATRIC: Appropriate mood and affect; insight and judgment normal. Assessment and Plan Assessment and Plan respiratory failure CHF DM HTN CKD PLAN CONTINUE O2 PULM TOILET INCREASE ACTIVITY f/u cxy Salima Borrego MD Aug 03, 2017 15:55
[2017-08-03] MEDS: MORPHINE SULFATE 15 MG TAB PO PRN ×2 (15:59→22:28)
[2017-08-03] MEDS ORDERED: WARFARIN SOD 1 MG TAB PO ONE (16:00)
--- NOTE | 2017-08-03 16:18 | HHI.PR ---
Subjective Remarks Patient seen today around 10 AM. He reports that shortness of breath continues , denies any chest pain. Objective Vital Signs Date Time Temp Pulse Resp B/P (MAP) Pulse Ox O2 Delivery O2 Flow Rate FiO2 08/03/17 11:00 97.0 62 20 122/60 (80) 08/03/17 08:43 98 Nasal Cannula 2.00 08/03/17 07:30 97.6 61 20 124/65 (84) 97 08/03/17 06:00 60 08/03/17 05:00 60 08/03/17 04:00 97.4 60 20 147/60 (89) 98 08/03/17 04:00 60 08/03/17 03:00 60 08/03/17 02:00 60 08/03/17 01:00 60 08/03/17 00:00 Nasal Cannula 2.00 08/03/17 00:00 98.2 18 119/68 (85) 100 08/03/17 00:00 60 08/02/17 23:00 60 08/02/17 22:00 60 08/02/17 21:00 60 08/02/17 20:00 60 08/02/17 20:00 98.2 60 18 138/62 (87) 100 08/02/17 20:00 Nasal Cannula 2.00 08/02/17 19:18 97 Nasal Cannula 2.00 08/02/17 19:00 60 08/02/17 18:00 60 08/02/17 17:00 60 I/O 08/02/17 08/02/17 08/02/17 08/03/17 08/03/17 08/03/17 06:59 14:59 22:59 06:59 14:59 22:59 Intake Total 720 ml 1040 ml 590 ml Output Total 1000 ml 950 ml 850 ml Balance -280 ml 90 ml -260 ml Intake Oral 720 ml 940 ml 240 ml IV Total 100 ml 350 ml Output Urine Total 1000 ml 950 ml 850 ml # Voids 3 Result Diagram: 08/02/17 0543 08/02/1743 Objective Remarks GENERAL: patient sitting up in recliner. Appears comfortable. SKIN: Warm and dry. HEAD: Normocephalic. EYES: No scleral icterus. No injection or drainage. NECK: Supple, trachea midline. No JVD. CARDIOVASCULAR: Regular rate and rhythm without murmurs, gallops, or rubs. RESPIRATORY: Breath sounds equal bilaterally. No accessory muscle use. GASTROINTESTINAL: Abdomen soft, non-tender, nondistended. MUSCULOSKELETAL: No cyanosis. 1+ peripheral edema. Bilateral below the knee amputations BACK: Nontender without obvious deformity. No CVA tenderness. A/P Assessment and Plan 66-year-old male admitted secondary to acute respiratory failure and hypercarbia. Labs reviewed. Renal function continues to improve. Continue to monitor labs. Labs ordered for further monitoring. Insulins adjusted back to previous baseline dosings. Monitor blood sugar trends. Coumadin is being resumed by the pharmacy today. Check INR in a.m. to ensure no recurrence of hypertherapeutic INR. Potential discharge if blood sugars improved and if INR is stable. //Acute hypoxia //Hypercarbic respiratory failure //Leukocytosis Improved with BiPAP To need to monitor for stability Patient is off BiPAP when seen Duo nebs as needed Continue prednisone Pulmonology following Azithromycin Cefepime = Continue pulmonary toilet. Discontinue antibiotics tomorrow after 7 day course. Continue to taper prednisone. //CHF exacerbation //Atrial fibrillation //Status post CABG 07/01/17 //History of pacemaker Follow on telemetry Supportive care Continue aspirin Continue carvedilol Continue atorvastatin = Vitals acceptable. Continue current regimen. //Hypertension Continue baseline treatment Follow blood pressures Adjust treatments as needed //Elevated digoxin level Digoxin discontinued //Hypertherapeutic INR Coumadin on hold Follow INR = 07/29. Coumadin restarted yesterday. INR continues subtherapeutic. Continue to monitor. //Acute kidney injury Chronic kidney disease stage III Nephrology following Follow renal function Avoid nephrotoxins = Creatinine continues stable. Appreciate nephrology assistance. Nephrology is cleared for discharge. //Diabetes mellitus type 2 Follow blood sugars Insulin sliding scale Diabetic diet = 08/03. Still some hyperglycemia with blood sugars in the 250s. Increase nighttime Levemir. DVT Prophylaxis SCDs Discharge Planning Cleared by nephrology. Transfer to [facility]. Likely discharge tomorrow to rehab if continued stable. Will need to ensure strict fluid restrictions upon discharge.. Hamzah Mireles MD Aug 03, 2017 16:18
[2017-08-03] MEDS: WARFARIN SOD 5 MG TAB PO SCH (17:46)
[2017-08-03] MEDS ORDERED: INSULIN DETEMIR 100 UNITS/ML VIAL SQ SCH ×2 (21:00)
[2017-08-03] MEDS: RESP: ALBUTEROL 2.5 MG/IPRATROPIUM 0.5 MG NEB (PRN) NEB (21:19)
[2017-08-03] MEDS: ATORVASTATIN 80 MG TAB PO SCH (22:14)
[2017-08-04] VITALS (26 sets, daily range): BP systolic 118–140; BP diastolic 64–76; PULSE 59–67; RESP 18–20; TEMP 97.7–98.6; O2SAT 98–100
[2017-08-04] MEDS: CEFEPIME INJ 1,000 MG in SODIUM CHLORIDE 0.9% INJ 100 ML IV SCH ×2
[2017-08-04] MEDS: RESP: ALBUTEROL 2.5 MG/IPRATROPIUM 0.5 MG NEB (PRN) NEB (03:17)
[2017-08-04] MEDS: AZITHROMYCIN INJ 500 MG in SODIUM CHLOR 0.9% 250 ML INJ 250 ML IV SCH (06:02)
[2017-08-04] MEDS: MORPHINE SULFATE 15 MG TAB PO PRN ×2 (06:08→16:19)
[2017-08-04 08:00] LABS: INTERNATIONAL NORMALIZED RATIO 1.5 RATIO; PROTHROMBIN TIME - PATIENT 14.7 SEC (9.8-11.6)
[2017-08-04] MEDS: INSULIN ASPART SUPPLEMENTAL SCALE SQ SCH ×4 (08:42→21:40)
[2017-08-04] MEDS: CARVEDILOL 12.5 MG TAB PO SCH ×2 (08:43→21:00)
[2017-08-04] MEDS: ALPRAZolam 0.5 MG TAB PO PRN ×2 (08:43→21:23)
[2017-08-04] MEDS: PANTOPRAZOLE SOD 40 MG DELAYED RELEASE TAB PO SCH ×2 (08:43→20:59)
[2017-08-04] MEDS: ASPIRIN 81 MG CHEW TAB PO SCH (08:43)
[2017-08-04] MEDS: predniSONE 10 MG TAB PO SCH (08:43)
[2017-08-04] MEDS: DOCUSATE SODIUM 50 MG/SENNA 8.6 MG TAB PO SCH ×2 (08:44→21:00)
[2017-08-04] MEDS: INSULIN DETEMIR 100 UNITS/ML VIAL SQ SCH (08:44)
[2017-08-04] MEDS: FUROSEMIDE 40 MG/4 ML VIAL IV PUSH SCH ×2 (08:44→17:29)
[2017-08-04] MEDS: SODIUM CHLORIDE 0.9% FLUSH 10 ML FLUSH IV FLUSH SCH ×2 (08:45→21:00)
--- NOTE | 2017-08-04 09:32 | HHI.NPPN ---
Subjective Complaints: Shortness of Breath Renal Failure: Chronic, Stage III History of Present Illness Patient is a 66-year-old male with a past medical history significant for hypertension, atrial fibrillation anticoagulated on Coumadin, coronary artery disease status post CABG 3 on 07/01/17, peripheral vascular disease, hepatitis C, cirrhosis, diabetes mellitus, CKD, and chronic back pain. Presents to the emergency department for evaluation for SOB. Patient is on BIPAP with nitroglycerin gtt. The patient was discharged from [facility] on to [facility]. Nephrology was consulted for worsening renal indices patients baseline creatinine is 1.50, patient has stage 3 CKD. Creatinine was found to be 2.40 and a GFR of 27 ml/min. During his stay at [facility] he was aggressive diuresed for increased lower extremity. Additional Remarks Resting OOB in chair. Increased swelling noted in lower extremities. Some open areas noted on right leg. (Corinne Vizcaino) Review of Systems General Constitutional: Fatigue (Corinne Vizcaino) Respiratory Lungs: SOB (Corinne Vizcaino) Cardiovascular Cardiac Remarks Denies CP (Corinne Vizcaino) Gastrointestinal GI Remarks No abdominal pain (Corinne Vizcaino) Objective Data Data Vital Signs Date Time Temp Pulse Resp B/P (MAP) Pulse Ox O2 Delivery O2 Flow Rate FiO2 08/04/17 07:56 100 Nasal Cannula 2.00 08/04/17 07:56 98.0 60 20 118/69 (85) 100 08/04/17 06:00 62 08/04/17 05:00 60 08/04/17 04:00 98.6 61 20 140/74 (96) 99 08/04/17 04:00 61 08/04/17 01:00 60 08/04/17 00:00 98.6 60 20 140/76 (97) 100 08/04/17 00:00 60 08/03/17 23:00 60 08/03/17 21:21 100 Nasal Cannula 2.00 08/03/17 20:55 98.6 60 20 144/84 (104) 100 08/03/17 20:00 61 08/03/17 19:00 95 3.00 08/03/17 19:00 61 08/03/17 18:00 62 08/03/17 17:00 60 08/03/17 16:00 60 08/03/17 15:00 60 08/03/17 15:00 98.2 64 20 133/77 (95) 98 08/03/17 14:00 60 08/03/17 13:00 60 08/03/17 12:00 62 08/03/17 11:00 97.0 62 20 122/60 (80) 08/03/17 11:00 68 08/03/17 10:00 60 (Corinne Vizcaino) -: 08/02/17 0543 08/02/17 0543 Physical Exam Eyes Eye Exam: Pupils Equal (Corinne Vizcaino) Neck Neck Exam: Neck Supple (Corinne Vizcaino) Pulmonary Resp Exam: Breath Sounds Equal, Decreased Bases (Corinne Vizcaino) Cardiology CV Exam: Regular, Normal Sinus Rhythm (Corinne Vizcaino) Gastrointestinal/Abdomen GI Exam: Soft, Non-Tender, Bowel Sounds Present (Corinne Vizcaino) Genitourinary Exam: Clear Urine, Flank Non-Tender (Corinne Vizcaino) Integumentary Skin Exam: Clear, Warm, Dry, Lesion(s) Skin Remarks right leg (Corinne Vizcaino) Extremeties Extremities Exam: Moderate Edema, Pitting Edema (Corinne Vizcaino) Neurologic Neuro Exam: Alert, Awake, Oriented (Corinne Vizcaino) Psychiatric Psych Exam: Appropriate Responses (Corinne Vizcaino) Assessment/Plan Problem List: (1) FRANCISCO (acute kidney injury) ICD Codes: N17.9 - Acute kidney injury Status: Acute Plan: FRANCISCO on CKD stage 3 Patient was re admitted with fluid overload. He has chronic kidney disease, and developed FRANCISCO. CKD most likely form Diabetic nephropathy UA with 3 + protein. Creatinine has been stable Good UOP Increased lower extremity edema with open area noted on right leg. Continue Lasix BID Need to restrict fluid and salt intake. Encouraged to elevate legs. (2) HTN (hypertension) ICD Codes: I10 - Essential (primary) hypertension (3) Diabetes mellitus ICD Codes: E11.9 - Diabetes mellitus Status: Acute (4) Chronic hyponatremia ICD Codes: E87.1 - Chronic hyponatremia Status: Chronic (5) Chronic systolic CHF (congestive heart failure) ICD Codes: I50.22 - Chronic systolic congestive heart failure Status: Acute (Corinne Vizcaino) Problem List: (1) FRANCISCO (acute kidney injury) ICD Codes: N17.9 - Acute kidney injury Status: Acute Plan: FRANCISCO on CKD stage 3 Patient was re admitted with fluid overload. He has chronic kidney disease, and developed FRANCISCO. CKD most likely form Diabetic nephropathy UA with 3 + protein. Creatinine has been stable Good UOP Increased lower extremity edema with open area noted on right leg. Continue Lasix BID Need to restrict fluid and salt intake. Encouraged to elevate legs. Patient seen and examined, agree with above. Add Metolazone. (2) HTN (hypertension) ICD Codes: I10 - Essential (primary) hypertension (3) Diabetes mellitus ICD Codes: E11.9 - Diabetes mellitus Status: Acute (4) Chronic hyponatremia ICD Codes: E87.1 - Chronic hyponatremia Status: Chronic (5) Chronic systolic CHF (congestive heart failure) ICD Codes: I50.22 - Chronic systolic congestive heart failure Status: Acute (Jai Godinez MD) Problem Qualifiers (1) HTN (hypertension): Qualified Codes: I10 - Essential (primary) hypertension Corinne Vizcaino Aug 04, 2017 09:32 Jai Godinez MD Aug 04, 2017 19:16
--- NOTE | 2017-08-04 11:24 | HHI.PR ---
Subjective Remarks Patient reports continued shortness of breath which has been chronic throughout hospitalization. Denies any chest pain. He reports slightly worse bilateral lower extremity edema. Has not been restricting fluids. Objective Vital Signs Date Time Temp Pulse Resp B/P (MAP) Pulse Ox O2 Delivery O2 Flow Rate FiO2 08/04/17 10:04 100 Nasal Cannula 2.00 08/04/17 07:56 100 Nasal Cannula 2.00 08/04/17 07:56 98.0 60 20 118/69 (85) 100 08/04/17 06:00 62 08/04/17 05:00 60 08/04/17 04:00 98.6 61 20 140/74 (96) 99 08/04/17 04:00 61 08/04/17 01:00 60 08/04/17 00:00 98.6 60 20 140/76 (97) 100 08/04/17 00:00 60 08/03/17 23:00 60 08/03/17 21:21 100 Nasal Cannula 2.00 08/03/17 20:55 98.6 60 20 144/84 (104) 100 08/03/17 20:00 61 08/03/17 19:00 95 3.00 08/03/17 19:00 61 08/03/17 18:00 62 08/03/17 17:00 60 08/03/17 16:00 60 08/03/17 15:00 60 08/03/17 15:00 98.2 64 20 133/77 (95) 98 08/03/17 14:00 60 08/03/17 13:00 60 08/03/17 12:00 62 I/O 08/03/17 08/03/17 08/03/17 08/04/17 08/04/17 08/04/17 07:00 15:00 23:00 07:00 15:00 23:00 Intake Total 590 ml 1200 ml 240 ml Output Total 850 ml 960 ml 900 ml Balance -260 ml 240 ml -660 ml Intake Oral 240 ml 1200 ml 240 ml IV Total 350 ml Output Urine Total 850 ml 960 ml 900 ml # Voids 3 Result Diagram: 08/02/17 0543 08/02/17 0543 Objective Remarks GENERAL: patient sitting up in recliner. Appears comfortable. SKIN: Warm and dry. HEAD: Normocephalic. EYES: No scleral icterus. No injection or drainage. NECK: Supple, trachea midline. No JVD. CARDIOVASCULAR: Regular rate and rhythm without murmurs, gallops, or rubs. RESPIRATORY: Breath sounds equal bilaterally. No accessory muscle use. GASTROINTESTINAL: Abdomen soft, non-tender, nondistended. MUSCULOSKELETAL: No cyanosis. 2+ peripheral edema, worse since yesterday.. Bilateral below the knee amputations. Of note patient has multiple drinks on bedside table. BACK: Nontender without obvious deformity. No CVA tenderness. A/P Assessment and Plan 66-year-old male admitted secondary to acute respiratory failure and hypercarbia. //Acute hypoxia //Hypercarbic respiratory failure //Leukocytosis Improved with BiPAP To need to monitor for stability Patient is off BiPAP when seen Duo nebs as needed Continue prednisone Pulmonology following Azithromycin Cefepime = Continue pulmonary toilet. Discontinue antibiotics tomorrow after 7 day course. Continue to taper prednisone. = 08/04 discontinue antibiotics. Discontinue steroids. Repeat chest x-ray. Labs today pending. //CHF exacerbation //Atrial fibrillation //Status post CABG 07/01/17 //History of pacemaker Follow on telemetry Supportive care Continue aspirin Continue carvedilol Continue atorvastatin = 08/04 some worsening bilateral lower extremity edema. Patient is not on fluid restrictions will place on moderate fluid restrictions. Continue IV Lasix nephrology following. Appreciate assistance //Hypertension Continue baseline treatment Follow blood pressures Adjust treatments as needed //Elevated digoxin level Digoxin discontinued //Hypertherapeutic INR Coumadin on hold Follow INR = 08/04. INR continues subtherapeutic at 1.5. Continue to monitor //Acute kidney injury Chronic kidney disease stage III Nephrology following Follow renal function Avoid nephrotoxins = Creatinine continues stable. Appreciate nephrology assistance. Nephrology is cleared for discharge. Continues on IV Lasix. //Diabetes mellitus type 2 Follow blood sugars Insulin sliding scale Diabetic diet = 08/03. Still some hyperglycemia with blood sugars in the 250s. Increase nighttime Levemir. DVT Prophylaxis SCDs Discharge Planning Cleared by nephrology. Transfer to [facility]. Discussed with case management. Still waiting on bed. Patient continues on IV Lasix. Slightly worsening anemia. Will monitor off of antibiotics and steroids. Possible discharge to SNF tomorrow Hamzah Mireles MD Aug 04, 2017 11:24
--- NOTE | 2017-08-04 11:51 | RADRPT ---
EXAM DATE/TIME: 08/04/2017 11:24 [facility] COMPARISON: CHEST SINGLE AP, August 01, 2017, 4:33. INDICATIONS : Short of breath. MEDICAL HISTORY : Congestive heart failure. Peripheral vascular disease. Aneurysm, abdominal. Peripheral neuropathy. Ch ronic pain syndrome. Coronary artery disease. Cardiomyopathy Hypercholesterolemia. Hyperlipidemia. Ch est pain. Afib. HTN. GERD. Renal insufficiency Hypercholesterolemia. Hyperlipidemia. Chest pain. Afib . HTN. GERD. Renal insufficiency. SURGICAL HISTORY : Abdominal aortic aneurysm repair. Tonsillectomy. Carotid endarterectomy. CABG. Cardiac cath x3. Angio plasty. Pacemaker. Right foot transmetatarsal amputation. Left BKA. Blood transfusions. ENCOUNTER: Subsequent ACUITY: 1 month PAIN SCORE: 0/10 LOCATION: Bilateral FINDINGS: A single view of the chest demonstrates diminished lung volumes. Bibasilar densities and small pleura l effusions. Left-sided pacemaker unchanged. Status post CABG The cardiomediastinal contours are unre markable. Osseous structures are intact. CONCLUSION: Diminished lung volumes with small pleural effusions and bibasilar densities, unchanged. Farhat Antonio MD on August 04, 2017 at 11:49 Board Certified Radiologist. This report was verified electronically.
[2017-08-04] MEDS: INSULIN ASPART 1,000 UNITS/10 ML VIAL SQ SCH ×2 (13:14→16:06)
[2017-08-04 15:51] LABS: AUTOMATED NEUTROPHIL # 12.5 TH/MM3 (1.8-7.7); BASOPHIL % 0.2 % (0.0-2.0); EOSINOPHIL # 0.1 TH/MM3 (0-0.4); EOSINOPHIL % 0.5 % (0.0-4.0); HEMATOCRIT 28.1 % (39.0-51.0); HEMOGLOBIN 9.1 GM/DL (13.0-17.0); LYMPH % 4.4 % (9.0-44.0); LYMPHOCYTE # 0.6 TH/MM3 (1.0-4.8); MEAN CELL VOLUME 89.5 FL (80.0-100.0); MEAN CORPUSCULAR HEMOGLOBIN 28.9 PG (27.0-34.0); MEAN CORPUSCULAR HGB CONC 32.2 % (32.0-36.0); MEAN PLATELET VOLUME 8.5 FL (7.0-11.0); MONOCYTE # 0.7 TH/MM3 (0-0.9); NEUT % 89.9 % (16.0-70.0); PLATELET COUNT 191 TH/MM3 (150-450); RED BLOOD COUNT 3.14 MIL/MM3 (4.50-5.90); RED CELL DISTRIBUTION WIDTH 19.3 % (11.6-17.2); WHITE BLOOD COUNT 13.9 TH/MM3 (4.0-11.0)
[2017-08-04] MEDS ORDERED: WARFARIN SOD 1 MG TAB PO ONE (16:00)
[2017-08-04] MEDS: WARFARIN SOD 5 MG TAB PO SCH (16:06)
[2017-08-04 16:09] LABS: ALBUMIN 3.4 GM/DL (3.4-5.0); ALT (GPT) 47 U/L (12-78); AST (GOT) 35 U/L (15-37); BICARBONATE 30.5 MEQ/L (21.0-32.0); BLOOD UREA NITROGEN 80 MG/DL (7-18); CALCIUM 9.9 MG/DL (8.5-10.1); CHLORIDE 96 MEQ/L (98-107); CREATININE 1.63 MG/DL (0.60-1.30); GLOMERULAR FILTRATION RATE 43 ML/MIN (>89); GLUCOSE,RANDOM 140 MG/DL (74-106); SODIUM (NA) 135 MEQ/L (136-145)
[2017-08-04 16:30] LABS: ALKALINE PHOSPHATASE 215 U/L (45-117); TOTAL BILIRUBIN ADULT 1.2 MG/DL (0.2-1.0); TOTAL PROTEIN 7.9 GM/DL (6.4-8.2)
--- NOTE | 2017-08-04 17:25 | HHI.PR ---
Subjective Remarks ALERT no acute distress Objective Vital Signs Date Time Temp Pulse Resp B/P (MAP) Pulse Ox O2 Delivery O2 Flow Rate FiO2 08/04/17 17:01 60 08/04/17 16:42 60 08/04/17 16:09 98.0 60 20 126/64 (84) 98 08/04/17 15:00 64 08/04/17 14:00 60 08/04/17 13:00 60 08/04/17 12:35 97.9 60 18 122/67 (85) 98 08/04/17 12:00 60 08/04/17 11:00 67 08/04/17 10:04 100 Nasal Cannula 2.00 08/04/17 10:00 60 08/04/17 09:00 60 08/04/17 08:00 60 08/04/17 07:56 100 Nasal Cannula 2.00 08/04/17 07:56 98.0 60 20 118/69 (85) 100 08/04/17 07:00 60 08/04/17 06:00 62 08/04/17 05:00 60 08/04/17 04:00 98.6 61 20 140/74 (96) 99 08/04/17 04:00 61 08/04/17 01:00 60 08/04/17 00:00 98.6 60 20 140/76 (97) 100 08/04/17 00:00 60 08/03/17 23:00 60 08/03/17 21:21 100 Nasal Cannula 2.00 08/03/17 20:55 98.6 60 20 144/84 (104) 100 08/03/17 20:00 61 08/03/17 19:00 95 3.00 08/03/17 19:00 61 08/03/17 18:00 62 I/O 08/03/17 08/03/17 08/03/17 08/04/17 08/04/17 08/04/17 07:00 15:00 23:00 07:00 15:00 23:00 Intake Total 590 ml 1200 ml 240 ml 490 ml Output Total 850 ml 960 ml 900 ml 370 ml Balance -260 ml 240 ml -660 ml 120 ml Intake Oral 240 ml 1200 ml 240 ml 240 ml IV Total 350 ml 250 ml Output Urine Total 850 ml 960 ml 900 ml 370 ml # Voids 3 Result Diagram: 08/04/17 1402 08/04/17 1402 Objective Remarks GENERAL: SKIN: Warm and dry. HEAD: Atraumatic. Normocephalic. EYES: Pupils equal and round. No scleral icterus. No injection or drainage. ENT: No nasal bleeding or discharge. Mucous membranes pink and moist. NECK: Trachea midline. No JVD. CARDIOVASCULAR: Regular rate and rhythm. RESPIRATORY: No accessory muscle use. decrease breath sounds at basis. GASTROINTESTINAL: Abdomen soft, non-tender, nondistended. Hepatic and splenic margins not palpable. MUSCULOSKELETAL: Extremities without clubbing, cyanosis, or edema. No obvious deformities. NEUROLOGICAL: Awake and alert. No obvious cranial nerve deficits. bilateral amputee PSYCHIATRIC: Appropriate mood and affect; insight and judgment normal. Assessment and Plan Assessment and Plan respiratory failure CHF DM HTN CKD PLAN CONTINUE O2 PULM TOILET INCREASE ACTIVITY Salima Borrego MD Aug 04, 2017 17:25
[2017-08-04] MEDS: ATORVASTATIN 80 MG TAB PO SCH (21:00)
[2017-08-04] MEDS ORDERED: INSULIN DETEMIR 100 UNITS/ML VIAL SQ SCH (21:00)
[2017-08-04] MEDS: METOLAZONE 2.5 MG TAB PO SCH (21:01)
[2017-08-05] VITALS (7 sets, daily range): BP systolic 119–141; BP diastolic 60–65; PULSE 60–61; RESP 18–20; TEMP 97.4–97.8; O2SAT 97–100
[2017-08-05] MEDS: MORPHINE SULFATE 15 MG TAB PO PRN ×2 (00:38→10:48)
[2017-08-05] MEDS: RESP: ALBUTEROL 2.5 MG/IPRATROPIUM 0.5 MG NEB (PRN) NEB (01:49)
[2017-08-05] MEDS: INSULIN ASPART SUPPLEMENTAL SCALE SQ SCH ×3 (08:00→17:00)
[2017-08-05 08:05] LABS: INTERNATIONAL NORMALIZED RATIO 1.6 RATIO; PROTHROMBIN TIME - PATIENT 15.7 SEC (9.8-11.6)
[2017-08-05 08:08] LABS: AUTOMATED NEUTROPHIL # 9.4 TH/MM3 (1.8-7.7); BASOPHIL # 0.1 TH/MM3 (0-0.2); BASOPHIL % 0.5 % (0.0-2.0); EOSINOPHIL # 0.2 TH/MM3 (0-0.4); EOSINOPHIL % 1.4 % (0.0-4.0); HEMATOCRIT 27.6 % (39.0-51.0); LYMPH % 12.6 % (9.0-44.0); LYMPHOCYTE # 1.5 TH/MM3 (1.0-4.8); MEAN CELL VOLUME 89.8 FL (80.0-100.0); MEAN CORPUSCULAR HEMOGLOBIN 29.1 PG (27.0-34.0); MEAN CORPUSCULAR HGB CONC 32.5 % (32.0-36.0); MEAN PLATELET VOLUME 8.7 FL (7.0-11.0); MONO % 7.1 % (0.0-8.0); MONOCYTE # 0.9 TH/MM3 (0-0.9); NEUT % 78.4 % (16.0-70.0); PLATELET COUNT 188 TH/MM3 (150-450); RED BLOOD COUNT 3.08 MIL/MM3 (4.50-5.90); RED CELL DISTRIBUTION WIDTH 19.3 % (11.6-17.2)
--- NOTE | 2017-08-05 08:20 | HHI.PR ---
Subjective Remarks In the wheelchair, appears to not acute distress. Breathing better satting well on 2 L by nasal cannula. No fever or chills. No chest pain overnight. Feels weak. Objective Vitals Vital Signs Date Time Temp Pulse Resp B/P (MAP) Pulse Ox O2 Delivery O2 Flow Rate FiO2 08/05/17 08:00 97.4 60 18 119/60 (79) 97 08/05/17 04:00 97.8 61 20 141/65 (90) 100 08/05/17 03:52 60 08/05/17 01:50 99 Nasal Cannula 2.00 08/05/17 00:25 97.7 60 18 135/61 (85) 100 08/05/17 00:05 Nasal Cannula 2.00 Humidified 08/04/17 23:00 59 08/04/17 22:00 60 08/04/17 21:00 60 08/04/17 20:00 60 08/04/17 19:00 60 08/04/17 19:00 97.7 60 20 125/64 (84) 100 08/04/17 19:00 100 Nasal Cannula 2.00 08/04/17 18:08 60 08/04/17 17:01 60 08/04/17 16:42 60 08/04/17 16:09 98.0 60 20 126/64 (84) 98 08/04/17 15:00 64 08/04/17 14:00 60 08/04/17 13:00 60 08/04/17 12:35 97.9 60 18 122/67 (85) 98 08/04/17 12:00 60 08/04/17 11:00 67 08/04/17 10:04 100 Nasal Cannula 2.00 08/04/17 10:00 60 08/04/17 09:00 60 I/O 08/04/17 08/04/17 08/04/17 08/05/17 08/05/17 08/05/17 07:00 15:00 23:00 07:00 15:00 23:00 Intake Total 240 ml 490 ml 480 ml 660 ml Output Total 900 ml 370 ml 720 ml 750 ml Balance -660 ml 120 ml -240 ml -90 ml Intake Oral 240 ml 240 ml 480 ml 660 ml IV Total 250 ml Output Urine Total 900 ml 370 ml 720 ml 750 ml # Bowel Movements 1 1 Result Diagram: 08/05/17 0652 08/04/17 1402 Imaging Last Impressions Chest X-Ray 08/04/17 0000 Signed Impressions: Service Date/Time: August 11:24 - CONCLUSION: Diminished lung volumes with small pleural effusions and bibasilar densities, unchanged. Farhat Antonio MD Objective Remarks GENERAL: patient sitting up in recliner. Appears comfortable. SKIN: Warm and dry. HEAD: Normocephalic. CARDIOVASCULAR: Regular rate and rhythm without murmurs, gallops, or rubs. RESPIRATORY: Breath sounds equal bilaterally. No accessory muscle use. GASTROINTESTINAL: Abdomen soft, non-tender, nondistended. MUSCULOSKELETAL: No cyanosis. 2+ peripheral edema, worse since yesterday.. Bilateral below the knee amputations. Of note patient has multiple drinks on bedside table. BACK: Nontender without obvious deformity. No CVA tenderness. A/P Assessment and Plan 66-year-old male admitted secondary to acute respiratory failure and hypercarbia. Acute hypoxia Hypercarbic respiratory failure Leukocytosis Improved with BiPAP To need to monitor for stability Patient is off BiPAP when seen Duo nebs as needed Continue prednisone Pulmonology following Azithromycin Cefepime Continue pulmonary toilet. Discontinue antibiotics tomorrow after 7 day course. Continue to taper prednisone. 08/04 discontinue antibiotics. Discontinue steroids. Repeat chest x-ray. Labs today pending. CHF exacerbation Atrial fibrillation Status post CABG 07/01/17 History of pacemaker Follow on telemetry Supportive care Continue aspirin Continue carvedilol Continue atorvastatin 08/04 some worsening bilateral lower extremity edema. Patient is not on fluid restrictions will place on moderate fluid restrictions. Continue IV Lasix nephrology following. Appreciate assistance Hypertension Continue baseline treatment Follow blood pressures Adjust treatments as needed Elevated digoxin level Digoxin discontinued Hypertherapeutic INR Coumadin on hold Follow INR 08/04. INR continues subtherapeutic at 1.5. Continue to monitor Acute kidney injury Chronic kidney disease stage III Nephrology following Follow renal function Avoid nephrotoxins Creatinine continues stable. Appreciate nephrology assistance. Nephrology is cleared for discharge. Continues on IV Lasix. Diabetes mellitus type 2 Follow blood sugars Insulin sliding scale Diabetic diet 08/03. Still some hyperglycemia with blood sugars in the 250s. Increase nighttime Levemir. DVT Prophylaxis SCDs Discharge Planning Cleared by nephrology. case management ff. Patient continues on IV Lasix. Slightly worsening anemia. Off antibiotics and steroids doing well. Discharge to SNF Sveta Willis MD Aug 05, 2017 08:20
[2017-08-05] MEDS ORDERED: COUM5TAB PO (08:27)
--- NOTE | 2017-08-05 08:27 | HHI.DS ---
Discharge Summary Admission Date Jul 26, 2017 at 05:04 Discharge Date: Aug 05, 2017 Admitting Diagnosis Congestive heart failure, pulmonary edema, elevated troponin (1) History of MDR Enterobacter cloacae infection ICD Code: Z86.19 - Personal history of other infectious and parasitic diseases Status: Acute (2) Hypotension ICD Code: I95.9 - Hypotension, unspecified Status: Acute (3) Hyperkalemia ICD Code: E87.5 - Hyperkalemia Status: Acute (4) Cardiomyopathy ICD Code: I42.9 - Cardiomyopathy, unspecified (5) Chronic pain ICD Code: G89.29 - Other chronic pain Status: Chronic (6) Non-compliance ICD Code: Z91.19 - Patient's noncompliance with other medical treatment and regimen Status: Chronic (7) Impaired mobility and activities of daily living ICD Code: Z74.09 - Other reduced mobility Status: Acute Procedures none Brief History - From Admission 66-year-old male with a past medical history significant for hypertension, atrial fibrillation anticoagulated on Coumadin, coronary artery disease status post CABG 3 on 07/01/17, peripheral vascular disease, hepatitis C , cirrhosis, diabetes mellitus and chronic back pain presents to the emergency department for evaluation of respiratory distress. The patient was discharged from [place] on 07/25/17 to [facility] where he resided for one day. He was brought to the emergency department for evaluation of shortness of breath and was found to be hypoxic in the 70s at the shelter. The patient denies any chest pain. He denies cough. No fever/chills. Denies nausea/vomiting/ diarrhea. Endorses an increase in his bilateral lower extremity edema. CBC/BMP: 08/05/17 0652 08/04/17 1402 Significant Findings Laboratory Tests Test 08/03/17 05:20 08/04/17 07:15 08/04/17 14:02 08/05/17 06:52 Prothrombin Time 15.2 SEC (9.8-11.6) 14.7 SEC (9.8-11.6) White Blood Count 13.9 TH/MM3 (4.0-11.0) 12.0 TH/MM3 (4.0-11.0) Red Blood Count 3.14 MIL/MM3 (4.50-5.90) 3.08 MIL/MM3 (4.50-5.90) Hemoglobin 9.1 GM/DL (13.0-17.0) 9.0 GM/DL (13.0-17.0) Hematocrit 28.1 % (39.0-51.0) 27.6 % (39.0-51.0) Red Cell Distribution Width 19.3 % (11.6-17.2) 19.3 % (11.6-17.2) Neutrophils (%) (Auto) 89.9 % (16.0-70.0) 78.4 % (16.0-70.0) Lymphocytes (%) (Auto) 4.4 % (9.0-44.0) Neutrophils # (Auto) 12.5 TH/MM3 (1.8-7.7) 9.4 TH/MM3 (1.8-7.7) Lymphocytes # (Auto) 0.6 TH/MM3 (1.0-4.8) Blood Urea Nitrogen 80 MG/DL (7-18) Creatinine 1.63 MG/DL (0.60-1.30) Random Glucose 140 MG/DL (74-106) Alkaline Phosphatase 215 U/L (45-117) Total Bilirubin 1.2 MG/DL (0.2-1.0) Sodium Level 135 MEQ/L (136-145) Chloride Level 96 MEQ/L (98-107) Estimat Glomerular Filtration Rate 43 ML/MIN (>89) Test 08/05/17 06:53 Prothrombin Time 15.7 SEC (9.8-11.6) Imaging Last Impressions Chest X-Ray 08/04/17 0000 Signed Impressions: Service Date/Time: August 11:24 - CONCLUSION: Diminished lung volumes with small pleural effusions and bibasilar densities, unchanged. Farhat Antonio MD PE at Discharge GENERAL: patient sitting up in recliner. Appears comfortable. SKIN: Warm and dry. HEAD: Normocephalic. CARDIOVASCULAR: Regular rate and rhythm without murmurs, gallops, or rubs. RESPIRATORY: Breath sounds equal bilaterally. No accessory muscle use. GASTROINTESTINAL: Abdomen soft, non-tender, nondistended. MUSCULOSKELETAL: No cyanosis. 2+ peripheral edema, worse since yesterday.. Bilateral below the knee amputations. Of note patient has multiple drinks on bedside table. BACK: Nontender without obvious deformity. No CVA tenderness. Hospital Course 66-year-old male admitted secondary to acute respiratory failure and hypercarbia. Acute hypoxia Hypercarbic respiratory failure Leukocytosis Improved with BiPAP, currently satting wel on 2 L by NC To need to monitor for stability Duo nebs as needed Continue prednisone tapered and monitor off steroids doing b=good Pulmonology following Treated with abx Azithromycin. Cefepime. Continue pulmonary toilet. Discontinue antibiotics tomorrow after 7 day course. Continue to taper prednisone. 08/04 discontinued antibiotics. Discontinued steroids. Repeat chest x-ray stable . Labs stable CHF exacerbation Atrial fibrillation Status post CABG 07/01/17 History of pacemaker Follow on telemetry Supportive care Continue aspirin Continue carvedilol Continue atorvastatin 08/04 some worsening bilateral lower extremity edema. Patient is not on fluid restrictions will placed on moderate fluid restrictions. Continue Lasix nephrology following. Appreciate assistance 08/05 Patient improving.. VSS. No fevers . LE edema improved. Breathing better satting well on 2L NC. He will benefit from rehab Hypertension Continue baseline treatment Follow blood pressures Adjust treatments as needed Elevated digoxin level Digoxin discontinued Hypertherapeutic INR Coumadin on hold Follow INR 08/04. INR continues subtherapeutic at 1.5. Continue to monitor Acute kidney injury Chronic kidney disease stage III Nephrology following Follow renal function Avoid nephrotoxins Creatinine continues stable. Appreciate nephrology assistance. Nephrology is cleared for discharge. Continues on IV Lasix. Diabetes mellitus type 2 Follow blood sugars Insulin sliding scale Diabetic diet 08/03. Still some hyperglycemia with blood sugars in the 250s. Increase nighttime Levemir. DVT Prophylaxis SCDs Discharge Planning Cleared by nephrology. case management ff. Off antibiotics and steroids doing well. Discharge to SNF in stable condition to follow up as OP with PCP and consultants. Pt Condition on Discharge: Stable Discharge Disposition: Discharge to SNF Discharge Time: > 30 minutes Discharge Instructions DIET: Follow Instructions for: Heart Healthy Diet, Diabetic Diet Activities you can perform: Regular-No Restrictions Follow up Referrals: Nephrology - 1 Week PCP Follow-up - 2-3 Days Podiatry - 2-3 Days Pulmonology - 2 Weeks Surgical - 1 Week with Kalyani Atkins MD [facility] - 2-3 Days with [facility] New Medications: Warfarin (Coumadin) 5 Mg Tab 5 MG PO DAILY@1600 for Blood Clot Prevention, #30 TAB Continued Medications: Acetaminophen (Eq Acetaminophen) 325 Mg Tab 650 MG PO Q4H PRN for PAIN SCALE 1 TO 4 MDD 2 g for 30 Days, #360 TAB Albuterol Neb (Albuterol Neb) 1.25 Mg/3 Ml Neb 1.25 MG NEB Q2HR NEB PRN for SHORTNESS OF BREATH, #60 NEBULE Amiodarone (Amiodarone) 200 Mg Tab 200 MG PO DAILY for arrhythmia prevention, #30 TAB Aspirin (Tgt Aspirin) 81 Mg Chw 81 MG PO DAILY for Blood Clot Prevention, #30 EA 2 Refills Atorvastatin (Atorvastatin) 80 Mg Tab 80 MG PO HS for Cholesterol Management, #30 TAB 0 Refills Carvedilol (Coreg) 12.5 Mg Tab 12.5 MG PO BID for Blood Pressure Management, #60 TAB 2 Refills Enoxaparin Inj (Lovenox Inj) 100 Mg/Ml Syr 90 MG SQ DAILY for Blood Clot Prevention for 30 Days, SYRINGE 0 Refills sub q daily , then dc when INR >2.0 Furosemide (Furosemide) 80 Mg Tab 80 MG PO BID@09,18 for diuretic, #60 TAB Guaifenesin (Cough Syrup) 100 Mg/5 Ml Syrp 200 MG PO TID for Cough for 10 Days Insulin Aspart Inj (Novolog Inj) 100 Unit/Ml Inj 1 UNIT SQ ACHS SLIDING SCALE, #1 INJECTION If glucoses less than 149 give 0 units If glucose is 150-199 give 1 unit If glucose is 200-249 give 3 units If glucose is 250-299 give 5 units If glucose is 300-349 give 7 units If glucose is over 349 give 9 units Insulin Detemir Inj (Levemir Inj) 1,000 unit/ 10 ML Vial 12 UNITS SQ HS for blood glucose control for 30 Days, INJECTION Do not mix with any other Insulin. Insulin Detemir Inj (Levemir Inj) 1,000 unit/ 10 ML Vial 20 UNITS SQ DAILY@0800 for blood glucose control for 30 Days, INJECTION Do not mix with any other Insulin. Metolazone (Metolazone) 5 Mg Tab 5 MG PO DAILY for diuretic, #30 TAB Morphine IR (Morphine IR) 15 Mg Tab 15 MG PO Q6H PRN for PAIN SCALE 5 TO 10, #60 TAB 0 Refills Multiple Vitamins W/ Minerals (Thera M Plus) 1 Tab 1 TAB PO DAILY for multi vitamin, #30 TAB 0 Refills Pantoprazole (Pantoprazole) 40 Mg Tab 40 MG PO BID for Reflux, #60 TAB Prednisone (Prednisone) 20 Mg Tab 20 MG PO BID for pulmonary inflammation for 4 Days, TAB Continue this medication through July 28, 2017. Warfarin (Warfarin) 3 Mg Tab 6 MG PO DAILY for Blood Clot Prevention, #60 TAB 0 Refills [Albuterol-Ipratropium Neb] () 1 AMPULE NEBU 1 AMPULE NEB Q4HR WHILE AWAKE NEB for to prevent shortness of breath for 30 Days , #180 [Budeson-Formot 160-4.5 Mcg Inh] () 60 PUFF AERO 2 PUFF INH Q12HR for prevention shortness of breath, #1 CONTAINER [Lactic Acid 12% Lotion] () 225 APPLIC/225 GM LOTN 1 APPLIC TOPICAL BID, #1 BOTTLE apply to right foot twice a day after showering Sevta Willis MD Aug 05, 2017 08:27
[2017-08-05 08:28] LABS: ALBUMIN 3.4 GM/DL (3.4-5.0); BICARBONATE 32.2 MEQ/L (21.0-32.0); CALCIUM 9.6 MG/DL (8.5-10.1); CREATININE 1.59 MG/DL (0.60-1.30)
[2017-08-05] MEDS: PANTOPRAZOLE SOD 40 MG DELAYED RELEASE TAB PO SCH (09:21)
[2017-08-05] MEDS: DOCUSATE SODIUM 50 MG/SENNA 8.6 MG TAB PO SCH (09:22)
[2017-08-05] MEDS: ASPIRIN 81 MG CHEW TAB PO SCH (09:22)
[2017-08-05] MEDS: FUROSEMIDE 40 MG/4 ML VIAL IV PUSH SCH (09:23)
[2017-08-05] MEDS: SODIUM CHLORIDE 0.9% FLUSH 10 ML FLUSH IV FLUSH SCH (09:23)
[2017-08-05] MEDS: INSULIN ASPART 1,000 UNITS/10 ML VIAL SQ SCH ×3 (09:25→17:00)
[2017-08-05] MEDS: INSULIN DETEMIR 100 UNITS/ML VIAL SQ SCH (09:25)
--- NOTE | 2017-08-05 10:34 | HHI.NPPN ---
Subjective Complaints: Shortness of Breath Renal Failure: Chronic, Stage III History of Present Illness Patient is a 66-year-old male with a past medical history significant for hypertension, atrial fibrillation anticoagulated on Coumadin, coronary artery disease status post CABG 3 on 07/01/17, peripheral vascular disease, hepatitis C, cirrhosis, diabetes mellitus, CKD, and chronic back pain. Presents to the emergency department for evaluation for SOB. Patient is on BIPAP with nitroglycerin gtt. The patient was discharged from [place] on to [facility]. Nephrology was consulted for worsening renal indices patients baseline creatinine is 1.50, patient has stage 3 CKD. Creatinine was found to be 2.40 and a GFR of 27 ml/min. During his stay at [facility] rehab he was aggressive diuresed for increased lower extremity. Additional Remarks Resting OOB in chair. Swelling in lower extremities improved since addition on metolazone. (Corinne Vizcaino) Review of Systems General Constitutional: Fatigue (Corinne Vizcaino) Respiratory Lungs: SOB (Corinne Vizcaino) Cardiovascular Cardiac Remarks Denies CP (Corinne Vizcaino) Gastrointestinal GI Remarks No abdominal pain (Corinne Vizcaino) Objective Data Data Vital Signs Date Time Temp Pulse Resp B/P (MAP) Pulse Ox O2 Delivery O2 Flow Rate FiO2 08/05/17 08:30 Nasal Cannula 2.00 08/05/17 08:00 97.4 60 18 119/60 (79) 97 08/05/17 07:51 60 08/05/17 04:00 97.8 61 20 141/65 (90) 100 08/05/17 03:52 60 08/05/17 01:50 99 Nasal Cannula 2.00 08/05/17 00:25 97.7 60 18 135/61 (85) 100 08/05/17 00:05 Nasal Cannula 2.00 Humidified 08/04/17 23:00 59 08/04/17 22:00 60 08/04/17 21:00 60 08/04/17 20:00 60 08/04/17 19:00 60 08/04/17 19:00 97.7 60 20 125/64 (84) 100 08/04/17 19:00 100 Nasal Cannula 2.00 08/04/17 18:08 60 08/04/17 17:01 60 08/04/17 16:42 60 08/04/17 16:09 98.0 60 20 126/64 (84) 98 08/04/17 15:00 64 08/04/17 14:00 60 08/04/17 13:00 60 08/04/17 12:35 97.9 60 18 122/67 (85) 98 08/04/17 12:00 60 08/04/17 11:00 67 (Corinne Vizcaino) -: 08/05/17 0652 08/05/17 0653 Physical Exam General Appearance: No Acute Distress (Corinne Vizcaino) Eyes Eye Exam: Pupils Equal (Corinne Vizcaino) Neck Neck Exam: Neck Supple (Corinne Vizcaino) Pulmonary Resp Exam: Breath Sounds Equal, Decreased Bases (Corinne Vizcaino) Cardiology CV Exam: Regular, Normal Sinus Rhythm (Corinne Vizcaino) Gastrointestinal/Abdomen GI Exam: Soft, Non-Tender, Bowel Sounds Present (Corinne Vizcaino) Genitourinary Exam: Clear Urine, Flank Non-Tender (Corinne Vizcaino) Integumentary Skin Exam: Clear, Warm, Dry, Lesion(s) Skin Remarks right leg (Corinne Vizcaino) Extremeties Extremities Exam: Moderate Edema, Pitting Edema (Corinne Vizcaino) Neurologic Neuro Exam: Alert, Awake, Oriented (Corinne Vizcaino) Psychiatric Psych Exam: Appropriate Responses (Corinne Vizcaino) Assessment/Plan Problem List: (1) FRANCISCO (acute kidney injury) ICD Codes: N17.9 - Acute kidney injury Status: Acute Plan: FRANCISCO on CKD stage 3 Patient was re admitted with fluid overload. He has chronic kidney disease, and developed FRANCISCO. CKD most likely form Diabetic nephropathy UA with 3 + protein. Creatinine has been stable Good UOP Plan Continue Lasix BID and metolazone. Edema has improved Need to restrict fluid and salt intake. Encouraged to elevate legs. Discharge plans underway (2) HTN (hypertension) ICD Codes: I10 - Essential (primary) hypertension Plan: Well controlled (3) Diabetes mellitus ICD Codes: E11.9 - Diabetes mellitus Status: Acute Plan: BS all less then 200 over past 24 hours (4) Chronic hyponatremia ICD Codes: E87.1 - Chronic hyponatremia Status: Chronic Plan: stable with sodium level of 134 (5) Chronic systolic CHF (congestive heart failure) ICD Codes: I50.22 - Chronic systolic congestive heart failure Status: Acute Plan: continue lasix SOB improved (Corinne Vizcaino) Problem List: (1) FRANCISCO (acute kidney injury) ICD Codes: N17.9 - Acute kidney injury Status: Acute Plan: FRANCISCO on CKD stage 3 Patient was re admitted with fluid overload. He has chronic kidney disease, and developed FRANCISCO. CKD most likely form Diabetic nephropathy UA with 3 + protein. Creatinine has been stable Good UOP Plan Continue Lasix BID and metolazone. Edema has improved Need to restrict fluid and salt intake. Encouraged to elevate legs. Discharge plans underway. Patient seen and examined, agree with above. To continue fluid and salt restriction. Continue diuretics, I can follow him in 2 weeks. (2) HTN (hypertension) ICD Codes: I10 - Essential (primary) hypertension Plan: Well controlled (3) Diabetes mellitus ICD Codes: E11.9 - Diabetes mellitus Status: Acute Plan: BS all less then 200 over past 24 hours (4) Chronic hyponatremia ICD Codes: E87.1 - Chronic hyponatremia Status: Chronic Plan: stable with sodium level of 134 (5) Chronic systolic CHF (congestive heart failure) ICD Codes: I50.22 - Chronic systolic congestive heart failure Status: Acute Plan: continue lasix SOB improved (Jai Godinez MD) Problem Qualifiers (1) HTN (hypertension): Qualified Codes: I10 - Essential (primary) hypertension Corinne Vizcaino Aug 05, 2017 10:34 Jai Godinez MD Aug 05, 2017 21:19
[2017-08-05] MEDS: CARVEDILOL 12.5 MG TAB PO SCH (10:47)
[2017-08-05] MEDS: METOLAZONE 2.5 MG TAB PO SCH (13:06)
[2017-08-05] MEDS ORDERED: GLUCAGON 1 MG/ML VIAL IM ONE (15:00)
[2017-08-05] MEDS ORDERED: GLUCAGON 1 MG/ML VIAL OTHER PRN (15:15)
[2017-08-05] MEDS ORDERED: DEXTROSE 50% IN WATER 50 ML VIAL(D50) IV PUSH PRN (15:15)
--- NOTE | 2017-08-05 15:43 | HHI.PR ---
Subjective Remarks ALERT no acute distress CO LE EDEMA Objective Vital Signs Date Time Temp Pulse Resp B/P (MAP) Pulse Ox O2 Delivery O2 Flow Rate FiO2 08/05/17 11:41 97.4 60 18 128/65 (86) 100 08/05/17 08:30 Nasal Cannula 2.00 08/05/17 08:00 97.4 60 18 119/60 (79) 97 08/05/17 07:51 60 08/05/17 04:00 97.8 61 20 141/65 (90) 100 08/05/17 03:52 60 08/05/17 01:50 99 Nasal Cannula 2.00 08/05/17 00:25 97.7 60 18 135/61 (85) 100 08/05/17 00:05 Nasal Cannula 2.00 Humidified 08/04/17 23:00 59 08/04/17 22:00 60 08/04/17 21:00 60 08/04/17 20:00 60 08/04/17 19:00 60 08/04/17 19:00 97.7 60 20 125/64 (84) 100 08/04/17 19:00 100 Nasal Cannula 2.00 08/04/17 18:08 60 08/04/17 17:01 60 08/04/17 16:42 60 08/04/17 16:09 98.0 60 20 126/64 (84) 98 I/O 08/04/17 08/04/17 08/04/17 08/05/17 08/05/17 08/05/17 07:00 15:00 23:00 07:00 15:00 23:00 Intake Total 240 ml 490 ml 480 ml 660 ml Output Total 900 ml 370 ml 720 ml 750 ml Balance -660 ml 120 ml -240 ml -90 ml Intake Oral 240 ml 240 ml 480 ml 660 ml IV Total 250 ml Output Urine Total 900 ml 370 ml 720 ml 750 ml # Bowel Movements 1 1 Result Diagram: 08/05/17 0652 08/05/17 0653 Objective Remarks GENERAL: SKIN: Warm and dry. HEAD: Atraumatic. Normocephalic. EYES: Pupils equal and round. No scleral icterus. No injection or drainage. ENT: No nasal bleeding or discharge. Mucous membranes pink and moist. NECK: Trachea midline. No JVD. CARDIOVASCULAR: Regular rate and rhythm. RESPIRATORY: No accessory muscle use. decrease breath sounds at basis. GASTROINTESTINAL: Abdomen soft, non-tender, nondistended. Hepatic and splenic margins not palpable. MUSCULOSKELETAL: Extremities without clubbing, cyanosis, or edema. No obvious deformities. NEUROLOGICAL: Awake and alert. No obvious cranial nerve deficits. bilateral amputee, EDEMATOUS PSYCHIATRIC: Appropriate mood and affect; insight and judgment normal. Assessment and Plan Assessment and Plan respiratory failure CHF DM HTN CKD FLUID OVERLOAD PLAN CONTINUE O2 PULM TOILET INCREASE ACTIVITY DIURESIS Salima Borrego MD Aug 05, 2017 15:43
[2017-08-05] MEDS ORDERED: WARFARIN SOD 1 MG TAB PO ONE (16:00)
== END 2017-08-05 17:45 | DRG 291 ==
LOC: NEPC 03:45 → NEDA 05:04 → HIMW 07:25 → HCIS 07-29 23:47 → N04B 08-04 23:55
PROVIDERS: ADMIT Family Medicine; ATTEND Hospitalist
PROC: 5A09457 Assistance with Respiratory Ventilation, 24-96 Consecutive Hours, Continuous Positive Airway Pressure (ICD-10-PCS; principal; 2017-07-26)
DX: I50.23 Acute on chronic systolic (congestive) heart failure (principal); J96.01 Acute respiratory failure with hypoxia; J96.02 Acute respiratory failure with hypercapnia; N17.9 Acute kidney failure, unspecified; E87.3 Alkalosis; N18.3 Chronic kidney disease, stage 3 (moderate); I42.9 Cardiomyopathy, unspecified; I13.0 Hypertensive heart and chronic kidney disease with heart failure and stage 1 through stage 4 chronic kidney disease, or unspecified chronic kidney disease; E87.1 Hypo-osmolality and hyponatremia; E11.21 Type 2 diabetes mellitus with diabetic nephropathy; E11.51 Type 2 diabetes mellitus with diabetic peripheral angiopathy without gangrene; E11.22 Type 2 diabetes mellitus with diabetic chronic kidney disease; I25.119 Atherosclerotic heart disease of native coronary artery with unspecified angina pectoris; J44.9 Chronic obstructive pulmonary disease, unspecified; Z79.01 Long term (current) use of anticoagulants; E11.621 Type 2 diabetes mellitus with foot ulcer; L97.519 Non-pressure chronic ulcer of other part of right foot with unspecified severity; I87.2 Venous insufficiency (chronic) (peripheral); B19.20 Unspecified viral hepatitis C without hepatic coma; D64.9 Anemia, unspecified; I48.2 Chronic atrial fibrillation; K74.60 Unspecified cirrhosis of liver; M54.9 Dorsalgia, unspecified; R60.0 Localized edema; E11.65 Type 2 diabetes mellitus with hyperglycemia; D72.829 Elevated white blood cell count, unspecified; G89.29 Other chronic pain; R79.1 Abnormal coagulation profile; Z79.4 Long term (current) use of insulin; Z95.1 Presence of aortocoronary bypass graft; Z95.810 Presence of automatic (implantable) cardiac defibrillator; Z88.1 Allergy status to other antibiotic agents; Z88.2 Allergy status to sulfonamides; Z87.891 Personal history of nicotine dependence
CPT/HCPCS: 36600; 71045; 80048; 80053; 80069; 80162; 81001; 82550; 82728; 82805; 82948; 83540; 83550; 83735; 83880; 84100; 84132; 84484; 85007; 85025; 85027; 85610; 85730; 87040; 87641; 93005; 93306; 94002; 94003; 94150; 94640; 94664; 96365; 96368; 96375; J0456; J0692; J1120; J1610; J1756; J1815; J1940; J2270; J2930; J7050; J7512